=== PATIENT | female | born 1940 | race Caucasian/White ===

== ENCOUNTER → 2017-10-27 09:31 | Outpatient (CLI) | payer MEDICARE, SELFPAY | PROVIDERS: PCP Family Medicine; Visit Provider Orthopaedic Surgery | DX: M17.11 Unilateral primary osteoarthritis, right knee (principal); M70.61 Trochanteric bursitis, right hip | CPT/HCPCS: 20610; 99213; J1040; J7325 ==

== ENCOUNTER 2017-11-06 12:28 | Emergency (ER) | payer MEDICARE, SELFPAY ==
[2017-11-06 12:34] VITALS: BP 112/67; PULSE 78; RESP 17; TEMP 36.4; O2SAT 94
--- NOTE | 2017-11-06 13:06 | DI.RAD_ITS ---
SYMPTOMS/DIAGNOSIS: KNEE PAIN RIGHT KNEE: There is no evidence of fracture or bony erosions. No abnormal gas collections are seen. There may be a joint effusion. IMPRESSION: Mild degenerative changes. Question of a joint effusion.
[2017-11-06 13:34] LABS: Abs Immature Grans 0.08 k/cumm (0.0-0.09); Absolute Basophil Count 0.02 k/cumm (0.0-0.2); Absolute Eosinophil Count 0.19 k/cumm (0.0-0.7); Absolute Lymphocyte Count 2.08 k/cumm (1.2-3.4); Absolute Neutrophil Count 6.62 k/cumm (1.2-6.7); Basophils % 0.2; Eosinophils % 1.8; HCT 38.4 % (36.0-46.0); HGB 12.8 g/dL (12.0-15.5); Immature Grans % 0.8; Mean Corp. HGB Concentration 33.3 g/dL (32.0-36.0); Mean Corpuscular Hemoglobin 30.9 pg (27.0-33.0); Mean Corpuscular Volume 92.8 fL (80-95); Mean Platelet Volume 10.1 fL (8.0-11.0); Monocytes % 13.5; Neutrophils % 63.7; Platelet Count 211 x1000/uL (130-400); RBC 4.14 m/cumm (4.00-5.20); RBC Distribution Width 13.2 % (11.7-14.6); White Blood Cell Count 10.39 k/cumm (4.4-10.8)
[2017-11-06 13:44] LABS: ALT 29 U/L (12-78); AST 19 U/L (15-37); Albumin 3.5 g/dL (3.4-5.0); Alkaline Phosphatase 61 U/L (46-116); Anion Gap 7.4 mmol/L (3-11); BUN 20 mg/dL (7-18); Bilirubin, Total 1.3 mg/dL (0.2-1.0); C-Reactive Protein 4.39 mg/dL (0.0-0.3); CO2 26.6 mmol/L (21.0-32.0); CREATININE 0.95 mg/dL (0.55-1.02); Calcium 8.2 mg/dL (8.5-10.1); Chloride 103 mmol/L (98-107); Estimated GFR 57.19 (mL/min/1.73m2); Glucose 129 mg/dL (70-100); Potassium 3.9 mmol/L (3.5-5.1); Sodium 137 mmol/L (136-145); Total Protein 6.8 g/dL (6.4-8.2)
--- NOTE | 2017-11-06 13:55 | DI.VRAD_ITS ---
EXAM: XR Right Knee, 3 Views EXAM DATE/TIME: 11/06/2017 1:08 PM CLINICAL HISTORY: 77 years old, female; Signs and symptoms; Other: Knee pain; Additional info: Knee joint injection 1 week ago TECHNIQUE: XR Right knee 3 views. COMPARISON: CR - LEFT KNEE 3 VIEW COMPLETE 06/23/2017 1:27 PM FINDINGS: Bones/joints: Tricompartmental joint space narrowing consistent with degenerative changes Moderate suprapatellar joint effusion. Soft tissues: Normal. IMPRESSION: Moderate suprapatellar joint effusion. Dictated and Authenticated by: Clau Valladares MD. Ordering:CHIARA RAMIREZ MD
--- NOTE | 2017-11-06 14:01 | W.ED.GENAD ---
Discharge Plan Disposition Patient Disposition: HOME Condition: Good Discharge Details Chief Complaint: Orthopedic Clinical Impression: Osteoarthrosis, Right knee pain Reason For Visit: knee pain Primary Care Provider: Kingsley Werner ED Provider: Tesfaye Vernon Home Meds and New Rx's Prescriptions: Continue calcium carbonate-vitamin D3 [Caltrate with Vitamin D3] 1 EACH tablet 1 ea PO BID RF: 0 esomeprazole magnesium [Nexium] 40 MG capsule,delayed release(DR/EC) 40 mg PO BID Qty: 180 RF: 3 albuterol sulfate [ProAir HFA] 8.5 GM HFA aerosol inhaler 2 puff Inhalation QID PRNQty: 3 RF: 4 lisinopril-hydrochlorothiazide [Zestoretic] 1 EACH tablet 1 tab-cap PO DAILY Qty: 90 RF: 4 simvastatin [Zocor] 40 MG tablet 40 mg PO DAILY Qty: 90 RF: 4 montelukast [Singulair] 10 MG tablet 10 mg PO DAILY Qty: 90 RF: 4 cholecalciferol (vitamin D3) 2,000 UNIT tablet 2,000 unit PO 2 tablets daily RF: 0 fluticasone-salmeterol [Advair Diskus] 1 EACH blister with device 1 puff Inhalation BID Qty: 1 RF: 3 fluoxetine [Prozac] 20 MG capsule 20 mg PO DAILY Qty: 90 RF: 0 fluticasone [Flonase] 16 GM spray,suspension 2 spry NS DAILY RF: 0 acetaminophen [Mapap Extra Strength] 500 MG tablet 1,000 mg PO PRN PRNRF: 0 Discharge Instructions Instructions: Knee Pain (ED) Additional Instructions: Feel free to return to the emergency department for any new or worsening symptoms. These may include fever chills, significant redness, for further concerns he may have. Otherwise it is encouraged that you follow-up with your orthopedist first thing this week if not improving. Referrals: Robb Wellington MD [ [facility] ST[facility]FF [facility]YSICIAN] - (Call the orthopedics office on Tuesday morning if not improving to discuss her internal follow-up appointment for reassessment.) Discharge Data Discharge Date/Time-TO BE ENTERED AT DEPARTURE: 11/06/17 15:06 Medical Decision Making MDM Narrative Medical decision making narrative: Patient presenting to the emergency department for chief complaint of right knee pain. Patient states that a little more than a week ago she had a joint injection done by Dr. Wellington. Then 3 days ago patient began having some right knee pain. She states that she has taken some Tylenol for it but it is not getting better and she is having some warmth to the joint. Patient denies any fever or chills, streaking redness, other joint involvement. Physical examination shows mild suprapatellar effusion and discomfort throughout palpation of the knee joint but patient does have appropriate range of motion with flexion up to 90? of the joint and is weightbearing. There is mild warmth noted to superficial palpation in the joint but skin otherwise appears normal. given that patient did have recent injection I do feel that labs and radiological imaging of the joint is warranted for rule out of infection or any other significant findings. Patient does have posterior knee pain and proximal calf pain so while DVT is considered I feel that this is a low likelihood so plan to do d-dimer. After review of labs which are nondiagnostic in view show an elevation of CRP but not an ESR and no significant leukocytosis along with x-ray showing moderate suprapatellar joint effusion otherwise no other acute findings noted patient reassess. Also notation d-dimer was elevated but with age adjustment shows within normal parameters given patient's age. Given other findings I doubt DVT patient states no change in symptoms. Patient was encouraged to wear supportive knee brace that she already has along with that to continue to take Tylenol as needed for discomfort. Encouraged patient to follow-up with orthopedist next week if not improving. I feel that this is more her osteoarthritis but doubt septic joint, no injury or trauma is noted, no signs of cellulitis. Patient encouraged to return immediately for any new or worsening symptoms Medical Records Medical records reviewed: Yes I reviewed the patient's medical records. Lab Data Lab Results 11/06/17 11/06/17 Range/Units 13:23 13:23 WBC 10.39 (4.4-10.8) k/cumm RBC 4.14 (4.00-5.20) m/cumm Hgb 12.8 (12.0-15.5) g/dL Hct 38.4 (36.0-46.0) % MCV 92.8 (80-95) fL MCH 30.9 (27.0-33.0) pg MCHC 33.3 (32.0-36.0) g/dL RDW 13.2 (11.7-14.6) % Plt Count 211 (130-400) x1000/uL MPV 10.1 (8.0-11.0) fL Immature Gran % 0.8 Neutrophils % 63.7 Lymphocytes % 20.0 Monocytes % 13.5 Eosinophils % 1.8 Basophils % 0.2 Absolute Neutrophils 6.62 (1.2-6.7) k/cumm Absolute Lymphocytes 2.08 (1.2-3.4) k/cumm Absolute Monocytes 1.40 H (0.11-0.7) k/cumm Absolute Eosinophils 0.19 (0.0-0.7) k/cumm Absolute Basophils 0.02 (0.0-0.2) k/cumm Sodium 137 (136-145) mmol/L Potassium 3.9 (3.5-5.1) mmol/L Chloride 103 (98-107) mmol/L Carbon Dioxide 26.6 (21.0-32.0) mmol/L Anion Gap 7.4 (3-11) mmol/L BUN 20 H (7-18) mg/dL Creatinine 0.95 (0.55-1.02) mg/dL Estimated GFR/1.73 m2 57.19 (mL/min/1.73m2) Glucose 129 H (70-100) mg/dL Calcium 8.2 L (8.5-10.1) mg/dL Total Bilirubin 1.3 H (0.2-1.0) mg/dL AST 19 (15-37) U/L ALT 29 (12-78) U/L Alkaline Phosphatase 61 (46-116) U/L C-Reactive Protein 4.39 H (0.0-0.3) mg/dL Total Protein 6.8 (6.4-8.2) g/dL Albumin 3.5 (3.4-5.0) g/dL HPI - General Adult General Mode of arrival: ambulatory. Date/Time Provider Initiated Documentation: 11/06/17 12:34. Limitations to Documentation: no limitations. Information obtained by: patient. History of Present Illness 77 year old F presents to the emergency department with the chief complaint of Right knee pain, with intensity rated at 7. Quality is described as aching, and is localized to the right and upper extremity. Patient reports no radiation. Patient started experiencing this day(s) (3) and it has been constant. No exacerbating factors reported . Patient notes no other symptoms.. Patient did receive the following treatments prior to arrival, other (Tylenol) Related Data Home Medications Medication Instructions Recorded Confirmed calcium carbonate-vitamin D3 1 ea PO BID tab 08/23/12 11/06/17 [Caltrate with Vitamin D3] fluticasone [Flonase] 2 spry NS DAILY 06/07/13 11/06/17 cholecalciferol (vitamin D3) 2,000 unit PO 2 tablets daily 07/18/17 11/06/17 acetaminophen [Mapap Extra 1,000 mg PO PRN PRN 08/24/17 11/06/17 Strength] Allergies Allergy/AdvReac Type Severity Reaction Status Date / Time adhesive Allergy Severe SKIN RASH Unverified 11/06/17 12:49 Sulfa (Sulfonamide Allergy Intermediate ITCHING Unverified 11/06/17 12:49 Antibiotics) losartan Allergy Unknown SWELLING, Unverified 11/06/17 12:49 ITCHING NSAIDS (Non-Steroidal AdvReac Severe gastritis Unverified 11/06/17 12:49 Anti-Inflamma hydrocodone AdvReac Unverified 11/06/17 12:50 General Stated Complaint: Orthopedic CLAUDIA: 4 Review of Systems Review of Systems All systems reviewed & are unremarkable except as noted in HPI and below Constitutional Denies body ache(s), Denies chills and Denies fever(s) Cardiovascular Denies chest pain and Denies dyspnea Respiratory Denies dyspnea Gastrointestinal Denies abdominal pain, Denies nausea and Denies vomiting Musculoskeletal Reports as per HPI, Reports arthralgias (right knee pain), Reports joint swelling (right knee) and Reports stiffness (right knee) Integumentary/Breasts Denies rash Neurologic Denies confusion and Denies sensory deficit Psychiatric Denies confusion PFSH Family History Mother Diabetes Essential hypertension Depression Heart disease Hyperlipidemia Father No problems noted. Brother Diabetes Essential hypertension Hyperlipidemia Neoplasm Grandfather Diabetes Essential hypertension Grandfather Essential hypertension Heart disease Hyperlipidemia Grandmother Essential hypertension Neoplasm Cerebrovascular accident Grandmother Diabetes Blood disease Neoplasm FAMILY HISTORY Myocardial infarction Son Substance abuse Depression Hyperlipidemia Daughter Diabetes Depression Hyperlipidemia Asthma Social History Smoking/Tobacco Use Status: Never Surgical History Arthroscopy, Shoulder Biopsy of breast (~2005) Cholecystectomy Extraction of cataract FX ARM (02/15/14) Hysterectomy, Laproscopic Exam Const General: cooperative, no acute distress and not ill appearing Orientation: alert, awake and oriented x3 HENMT Mouth: moist mucous membranes Resp Effort & Inspection: normal respiratory effort, able to speak in complete sentences and no respiratory distress Cardio Rate: regular rate Rhythm: regular rhythm Skin General skin exam: no rashes or lesions noted Neuro General: alert, awake, oriented x3, moves all extremities and no focal motor deficits Sensory Exam: no sensory deficits noted Extrem Right lower extremity: knee Details: tenderness Location: of the pre-patellar area and of the distal upper leg, swelling Location: of the pre-patellar area, normal ROM and knee ligament exam normal; no crepitus, no deformity and no unusual warmth Course Vital Signs Temperature 36.4 C L 11/06/17 12:34 Pulse 78 11/06/17 12:34 Respiratory Rate 17 11/06/17 12:34 Blood Pressure 112/67 11/06/17 12:34 Pulse Oximetry 94 L 11/06/17 12:34 Temperature 36.4 C L 11/06/17 12:34 Pulse 78 11/06/17 12:34 Respiratory Rate 17 11/06/17 12:34 Blood Pressure 112/67 11/06/17 12:34 Pulse Oximetry 94 L 11/06/17 12:34 Lab/Test Results Lab/Test Results: Laboratory Tests 11/06/17 11/06/17 13:23 13:23 WBC 10.39 RBC 4.14 Hgb 12.8 Hct 38.4 MCV 92.8 MCH 30.9 MCHC 33.3 RDW 13.2 Plt Count 211 MPV 10.1 Immature Gran % 0.8 Neutrophils % 63.7 Lymphocytes % 20.0 Monocytes % 13.5 Eosinophils % 1.8 Basophils % 0.2 Absolute Neutrophils 6.62 Absolute Lymphocytes 2.08 Absolute Monocytes 1.40 H Absolute Eosinophils 0.19 Absolute Basophils 0.02 Sodium 137 Potassium 3.9 Chloride 103 Carbon Dioxide 26.6 Anion Gap 7.4 BUN 20 H Creatinine 0.95 Estimated GFR/1.73 m2 57.19 Glucose 129 H Calcium 8.2 L Total Bilirubin 1.3 H AST 19 ALT 29 Alkaline Phosphatase 61 C-Reactive Protein 4.39 H Total Protein 6.8 Albumin 3.5
[2017-11-06 14:06] LABS: D-Dimer 658 ng/mlFEU (<500)
[2017-11-06 14:25] LABS: ESR 21 MM/HR (0-30)
== END 2017-11-06 15:06 | disposition home or self-care (01) ==
PROVIDERS: Emergency Provider Nurse Practitioner Family; PCP Family Medicine
DX: M25.561 Pain in right knee (principal); M25.461 Effusion, right knee
CPT/HCPCS: 36415; 73562; 80053; 85652; 99284; 85025; 85379; 86140

== ENCOUNTER → 2017-11-17 14:34 | Outpatient (BNVA) | payer MEDICARE, SELFPAY | PROVIDERS: PCP Family Medicine; Referring Provider Family Medicine; Visit Provider Orthopaedic Surgery | DX: M25.561 Pain in right knee (principal); M25.461 Effusion, right knee | CPT/HCPCS: 20610; 99213; J1040 ==

== ENCOUNTER 2017-11-30 00:38 | Outpatient (CLI) | payer MEDICARE, SELFPAY ==
--- NOTE | 2017-11-30 08:50 | DI.MRI_ITS ---
SYMPTOM/DIAGNOSIS: RT KNEE PAIN, DJD, ? MENISCUS MRI RIGHT KNEE: The study was conducted according to the usual protocol. A large knee effusion is demonstrated. There is small thin patellar plica seen in the medial and lateral suprapatellar pouch. There may be strands of possible blood clot present in the suprapatellar pouch. The positional alignment of the patella and trochlear groove and distal femur is normal with thinning of the hyaline cartilage covering the posterior articular surface of the patella. There are subchondral degenerative and reactive marrow changes and marginal osteophytosis of the patella is identified. The femoral condylar hyaline cartilage covering appears to be thinned overlying the medial and lateral femoral condyles especially in the medial femoral condyle with minimal subchondral degenerative cystic changes noted in the posterior medial femoral condyle. Margin osteophytic disease is seen in both medial and lateral femoral condyles. The marrow signal of the periarticular bones appears unremarkable except for minimal degenerative subchondral changes in the medial femoral condyle and lateral tibial plateau. The extensor mechanism of the quadriceps tendon is normal. The patella tendon is normal. The medial meniscus and posterior horn show a small horizontal meniscal tear extending to the inferior portion of the joint surface. The root ligaments and menisci appear normal. There is a questionable small bucket-handle tear of the anterior horn of the lateral meniscus. This is a questionable finding. The medial collateral ligament is normal. The lateral collateral ligament appears normal. Popliteus tendon is intact. The anterior cruciate ligament is normal. The posterior cruciate ligament is normal. No muscular abnormality is seen. Hoffa's fat pad is normal. The popliteal fossa appears normal except for a small Rahman's cyst in the posteromedial soft tissues. SUMMARY: Moderate osteoarthritic changes involving the knee affecting all joint compartments especially the patellofemoral and medial tibial femoral joint. A moderately large joint effusion is identified with patellar plica seen in the medial lateral suprapatellar pouch areas as well as possible strand-like blood clots in the joint cavity. A small Rahman's cyst is seen in the posteromedial popliteal fossa and some early dissection of the cyst fluid in to the soft tissues above and below the knee joint line. The medial meniscus and posterior horn show small horizontal meniscal tear extending to the inferior joint. There is a small bucket-handle tear of the anterior horn of the lateral meniscus. This is a questionable finding.
--- NOTE | 2017-11-30 17:52 | DI.VRAD_ITS ---
EXAM: MR Right Lower Extremity Without Intravenous Contrast, Knee EXAM DATE/TIME: 11/30/2017 8:43 AM CLINICAL HISTORY: 77 years old, female; Signs and symptoms; Other: Right knee pain, djd, ? meniscus; Prior surgery; Surgery date: 6+ months; Surgery type: Knee arthroscopy a few years ago TECHNIQUE: Multiplanar magnetic resonance images of the right knee without intravenous contrast. COMPARISON: CR XR knee RT 3V AP,lat,giacomo 11/06/2017 1:23 PM FINDINGS: BONES/JOINTS/CARTILAGE: PATELLOFEMORAL COMPARTMENT: A moderately large knee joint effusion is present. Small thin patellar plicae are seen in the medial and lateral suprapatellar pouch areas. There may be strands of possible blood clot present in the suprapatellar pouch on image 25 of series 3 and image 16 of series 6. The position and alignment of the patella on the trochlea groove of the distal femur is normal, with thinning of the hyaline cartilage covering the posterior articular surface of the patella, subchondral degenerative reactive marrow change and marginal osteophytosis of the patella present. FEMOROTIBIAL COMPARTMENTS: The femoral condylar hyaline cartilage covering appears thinned overlying the medial and lateral femoral condyles, especially the medial femoral condyle, with minimal subchondral degenerative cystic change noted in the posteromedial femoral condyle. Marginal osteophytic disease is seen in both medial and lateral femoral condyles. The marrow signal of the periarticular bones appears unremarkable, except for minimal degenerative subchondral changes in the medial femoral condyle and the lateral tibial plateau. EXTENSOR MECHANISM: The quadriceps tendon appears normal. The patellar tendon appears normal. MEDIAL MENISCUS: The medial meniscus posterior horn shows a small horizontal meniscal tear, extending to the inferior joint surface seen on image 17 of series 6. The root ligaments of the menisci appear normal. LATERAL MENISCUS: There is a questionable small bucket-handle tear of the anterior horn of the lateral meniscus seen on image 11 of series 4 and image 8 of series 6. This is however a questionable finding. MEDIAL CAPSULE/SUPPORTING STRUCTURES: The medial collateral ligament is normal. LATERAL CAPSULE/SUPPORTING STRUCTURES: The lateral collateral ligament appears normal. The popliteus tendon appears normal. ANTERIOR CRUCIATE LIGAMENT: The anterior cruciate ligament appears normal. POSTERIOR CRUCIATE LIGAMENT: The posterior cruciate ligament appears normal. MUSCULATURE: Unremarkable. SOFT TISSUES: Hoffa's fat pad is normal. The popliteal fossa appears normal, except for a small Rahman's cyst in the posteromedial soft tissues. IMPRESSION: 1. There is moderate osteoarthritis of the knee affecting all three knee joint compartments, especially the patellofemoral and medial tibiofemoral joint compartments. 2. A moderately large knee joint effusion is present with patellar plicae seen in the medial and lateral suprapatellar pouch areas as well as possible strand-like blood clots in the joint cavity. A small Rahman's cyst is seen in the posteromedial popliteal fossa with some early dissection of the cyst fluid into the soft tissues above and below the knee jointline. 3. The medial meniscus posterior horn shows a small horizontal meniscal tear, extending to the inferior joint surface seen on image 17 of series 6. 4. There is a small bucket-handle tear of the anterior horn of the lateral meniscus seen on image 11 of series 4 and image 8 of series 6. This is however a questionable finding. Dictated and Authenticated by: Bridger Hector MD. Ordering:DAYAN DIETZ MD
== END 2017-11-30 00:58 ==
PROVIDERS: PCP Family Medicine; Visit Provider Orthopaedic Surgery
DX: M25.461 Effusion, right knee (principal); M17.11 Unilateral primary osteoarthritis, right knee; M71.21 Synovial cyst of popliteal space [Baker], right knee; M23.221 Derangement of posterior horn of medial meniscus due to old tear or injury, right knee
CPT/HCPCS: 73721

== ENCOUNTER → 2017-12-06 11:00 | Outpatient (BNVA) | payer MEDICARE, SELFPAY | PROVIDERS: PCP Family Medicine; Referring Provider Family Medicine; Visit Provider Orthopaedic Surgery | DX: Z01.818 Encounter for other preprocedural examination (principal); M25.561 Pain in right knee; I10 Essential (primary) hypertension | CPT/HCPCS: 99211; 99213 ==

== ENCOUNTER 2017-12-09 07:21 | Day surgery (SDC) | payer MEDICARE, SELFPAY ==
[2017-12-09] VITALS (9 sets, daily range): BP systolic 77–139; BP diastolic 34–63; PULSE 76–89; RESP 12–20; TEMP 36.4–37.2; O2SAT 90–97
[2017-12-09] MEDS: Lactated Ringers 1,000 ML 80 ML IV (08:14)
[2017-12-09] MEDS: Bupivacaine 0.25% Pres-Free 10 ML VIAL 20 ML (09:14)
--- NOTE | 2017-12-09 10:20 | W.PM.DSUDISC ---
Discharge Plan Disposition Patient Disposition: HOME Condition: Improving Discharge Details Reason For Visit: Right knee pain,internal derangement found Attending Provider: Robb Wellington Primary Care Provider: Kingsley Werner Home Meds and New Rx's Prescriptions: No Action calcium carbonate-vitamin D3 [Caltrate with Vitamin D3] 1 EACH tablet 1 ea PO BID RF: 0 esomeprazole magnesium [Nexium] 40 MG capsule,delayed release(DR/EC) 20 mg PO BID Qty: 180 RF: 3 albuterol sulfate [ProAir HFA] 8.5 GM HFA aerosol inhaler 2 puff Inhalation QID PRNQty: 3 RF: 4 lisinopril-hydrochlorothiazide [Zestoretic] 1 EACH tablet 1 tab-cap PO DAILY Qty: 90 RF: 4 simvastatin [Zocor] 40 MG tablet 40 mg PO DAILY Qty: 90 RF: 4 cholecalciferol (vitamin D3) 2,000 UNIT tablet 2,000 unit PO 2 tablets daily RF: 0 fluticasone [Flonase] 16 GM spray,suspension 2 spry NS DAILY RF: 0 acetaminophen [Mapap Extra Strength] 500 MG tablet 1,000 mg PO PRN PRNRF: 0 montelukast [Singulair] 10 MG tablet 10 mg PO DAILY PRNRF: 0 fluoxetine [Prozac] 20 MG capsule 20 mg PO DAILY RF: 0 fluticasone-salmeterol [Advair Diskus] 250-50 mcg/dose Blister With Device 1 puff Inhalation PRN PRNRF: 0 acetaminophen 325 mg Tablet 325 mg PO PRN PRNRF: 0 Discharge Instructions Additional Instructions: Keep your right knee elevated above heart level as much as possible for the next 48 hours. You may walk on your leg and place your full weight upon it to eat or to go to the bathroom. You may loosen the knee splint and/or the sergio bandages if they feel to tight. Continue to use the ice as needed for pain and swelling. On 12/11/17, you may remove all of your bandages and get your wounds wet in the shower with soap and water. Gently pat the stitches dry and cover them with bandaids. Apply a single 6 inch sergio bandage for support and resume activity as tolerated. Make sure you remove the 6 inch sergio bandage each night so that it doesn't act as a tourniquet causing swelling ion the lower leg. Take tylenol for milder pain. Take norco (5/325 mg) 1-2 every 4 hours for more serious pain. [facility] regulations limit the amount of norco to 18 tablets. Follow up with Dr. Wellington in 10-12 days. Discharge Orders Discharge Orders: Discharge Order (Routine); Ordered 12/09/17 Ordered By: Robb Wellington
[2017-12-09 10:35] LABS: Clarity BLOODY; Source R KNEE
[2017-12-09] MEDS: fentaNYL 100 MCG/2 ML VIAL IVP (10:44)
[2017-12-09 10:51] LABS: Mononuclear Cells 15 % (0-0); Polynuclear Cells 85 % (0-0)
[2017-12-09 10:54] LABS: Nucleated Cells 13860 /MM3 (0-0)
--- NOTE | 2017-12-09 11:18 | ROE_ITS ---
REPORT OF OPERATIVE PROCEDURE DATE OF PROCEDURE December 09, 2017 PREOPERATIVE DIAGNOSES Sudden onset pain right knee, question etiology. POSTOPERATIVE DIAGNOSES Small tear posteromedial meniscus. Large tear lateral meniscus. Moderate DJD medial femoral condyle and lateral tibial plateau. PROCEDURES Arthroscopy right knee with partial medial and lateral meniscectomies. Aspiration of effusion and fluid sent for culture and sensitivity, and cell count differential. SURGEON Robb Wellington M.D. ASSESSMENT Nurse. ANESTHETIC General Via endotracheal tube by Vinny Berg CRNA PREP ChloraPrep. INDICATIONS This patient has been followed by me for several years for chronic right knee pain. She has been forrest ated with Synvisc injections with good results. She had a Synvisc injection approximately four weeks ago. Instead of taking it easy as prescribed for 24 hours, she went to her daughters home in [facility], was quite active for 72 straight hours including going up and down stairs, attending a soccer ga la, shopping at malls. She returned with a painful right knee. She did not volunteer her history of h ow much activity she had one or the fact that she had ignored the advice to rest the knee for the fir st 24 hours after the Synvisc injection. I thought she might be having an allergic reaction. She was placed on a Medrol Dosepak with no improvement. She did not recall any particular trauma to the knee other than being active. When I saw her in the office she showed evidence of swollen knee. No evidenc e of acute infection. I tried an intraarticular injection still thinking she could potentially being having an allergic reaction, this was of benefit for only 48 hours. An MRI was done, which showed jose juan e increased activity over the medial and lateral menisci, but no definitive tears. I reviewed the MRI findings with Dr. Celaya and with Dr. Stafford separately. I concurred with their opinions. Because of p ersistent pain, and no definitive diagnosis, I recommended arthroscopy. This would afford me an oppor tunity to perform a culture and sensitivity of the joint fluid and evaluate the knee. DESCRIPTION OF PROCEDURE I greeted her in the Day Surgery area and marked her right knee. She was not given any prophylactic a ntibiotics until the fluid was aspirated and culture was obtained. Time-out was instituted and she wa s brought to the Operating Suite, where arthroscopic procedure was initiated. First, I aspirated abou t 10 cc of serosanguineous joint fluid, it was sent for culture and sensitivity. It was a slightly bl oody tap, but there was no gross evidence of purulence. She was given 2 grams of Ancef. I then, inserted the arthroscope after sterile prepping and draping through an anterolateral portal. Inflow was provided through the scope, egress and pressure-monitoring portals were placed superolater ally. Instrumentation was accomplished anteromedially. The medial compartment showed areas of articu lar cartilage frayed over the medial femoral condyle and also the medial tibial plateau. The medial m eniscus was intact, except there is a small flap tear over the posterior medial aspect of the meniscu s. The ACL was intact with some fraying, but its integrity was normal. The lateral meniscus had a lar ge bucket handle tear, which was removed with basket forceps and the ArthroCare wand. There was some associated degenerative changes of the lateral tibial plateau, this was documented with Mavigraph pic tures. 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 The knee was then irrigated with several thousand cc of saline. Portals were closed with sutures of #4-0 Ethilon in a horizontal mattress fashion. The knee as infiltrated with 20 cc of 0.5% Marcaine. Steri le bandages were applied consisting of Xeroform gauze, 4x4s, a 4-inch confirming gauze bandage, two 6 -inch Thierry wraps, and a commercial knee immobilizer. The patient was taken to the Recovery Room in sat isfactory condition, tolerating the procedure well.
--- NOTE | 2017-12-12 12:50 | PDOC.DSDIS_ITS ---
Discharge Plan Disposition Patient Disposition: HOME Condition: Improving Discharge Details Reason For Visit: Right knee pain,internal derangement found Attending Provider: Robb Wellington Primary Care Provider: Kingsley Werner Home Meds and New Rx's Prescriptions: No Action calcium carbonate-vitamin D3 [Caltrate with Vitamin D3] 1 EACH tablet 1 ea PO BID RF: 0 esomeprazole magnesium [Nexium] 40 MG capsule,delayed release(DR/EC) 20 mg PO BID Qty: 180 RF: 3 albuterol sulfate [ProAir HFA] 8.5 GM HFA aerosol inhaler 2 puff Inhalation QID PRNQty: 3 RF: 4 lisinopril-hydrochlorothiazide [Zestoretic] 1 EACH tablet 1 tab-cap PO DAILY Qty: 90 RF: 4 simvastatin [Zocor] 40 MG tablet 40 mg PO DAILY Qty: 90 RF: 4 cholecalciferol (vitamin D3) 2,000 UNIT tablet 2,000 unit PO 2 tablets daily RF: 0 fluticasone [Flonase] 16 GM spray,suspension 2 spry NS DAILY RF: 0 acetaminophen [Mapap Extra Strength] 500 MG tablet 1,000 mg PO PRN PRNRF: 0 montelukast [Singulair] 10 MG tablet 10 mg PO DAILY PRNRF: 0 fluoxetine [Prozac] 20 MG capsule 20 mg PO DAILY RF: 0 fluticasone-salmeterol [Advair Diskus] 250-50 mcg/dose Blister With Device 1 puff Inhalation PRN PRNRF: 0 acetaminophen 325 mg Tablet 325 mg PO PRN PRNRF: 0 Discharge Instructions Additional Instructions: Keep your right knee elevated above heart level as much as possible for the next 48 hours. You may walk on your leg and place your full weight upon it to eat or to go to the bathroom. You may loosen the knee splint and/or the sergio bandages if they feel to tight. Continue to use the ice as needed for pain and swelling. On 12/11/17, you may remove all of your bandages and get your wounds wet in the shower with soap and water. Gently pat the stitches dry and cover them with bandaids. Apply a single 6 inch sergio bandage for support and resume activity as tolerated. Make sure you remove the 6 inch sergio bandage each night so that it doesn't act as a tourniquet causing swelling ion the lower leg. Take tylenol for milder pain. Take norco (5/325 mg) 1-2 every 4 hours for more serious pain. [facility] [place] the amount of norco to 18 tablets. Follow up with Dr. Wellington in 10-12 days. Stand Alone Forms: [facility] Post op Instructions, [facility] ([facility]) Discharge Orders Discharge Orders: Discharge Order (Routine); Ordered 12/09/17 Ordered By: Robb Wellington Discharge Data Discharge Date/Time-TO BE ENTERED AT DEPARTURE: 12/09/17 13:00 Discharge Comment: PT. DISCHARGED WITH [facility] VIA PRIVATE VEHICLE.
== END 2017-12-09 13:00 | disposition home or self-care (01) ==
PROVIDERS: PCP Family Medicine; Visit Provider Orthopaedic Surgery
PROC: (CPT 29870; principal; 2017-12-09 08:30)
DX: M23.221 Derangement of posterior horn of medial meniscus due to old tear or injury, right knee (principal); M23.200 Derangement of unspecified lateral meniscus due to old tear or injury, right knee; M17.11 Unilateral primary osteoarthritis, right knee
CPT/HCPCS: 20610; 29880; 87070; 87205; 89051; J0131; J0690; J1100; J1885; J2405; J3010; L1830

== ENCOUNTER 2017-12-14 06:15 | Emergency (ER) | payer MEDICARE, SELFPAY ==
[2017-12-14] VITALS (58 sets, daily range): BP systolic 139–197; BP diastolic 59–83; PULSE 85–95; RESP 18–37; TEMP 36.8; O2SAT 90–98
[2017-12-14] MEDS: Lactated Ringers 1,000 ML 150 ML IV (06:25)
--- NOTE | 2017-12-14 06:32 | W.ED.GENAD ---
Discharge Plan Discharge Details Chief Complaint: Nausea/Vomit/Diar Reason For Visit: ANNA Primary Care Provider: Kingsley Werner ED Provider: Deborah Cano Home Meds and New Rx's Prescriptions: No Action calcium carbonate-vitamin D3 [Caltrate with Vitamin D3] 1 EACH tablet 1 ea PO BID RF: 0 esomeprazole magnesium [Nexium] 40 MG capsule,delayed release(DR/EC) 20 mg PO BID Qty: 180 RF: 3 albuterol sulfate [ProAir HFA] 8.5 GM HFA aerosol inhaler 2 puff Inhalation QID PRNQty: 3 RF: 4 lisinopril-hydrochlorothiazide [Zestoretic] 1 EACH tablet 1 tab-cap PO DAILY Qty: 90 RF: 4 simvastatin [Zocor] 40 MG tablet 40 mg PO DAILY Qty: 90 RF: 4 cholecalciferol (vitamin D3) 2,000 UNIT tablet 2,000 unit PO 2 tablets daily RF: 0 fluticasone [Flonase] 16 GM spray,suspension 2 spry NS DAILY RF: 0 acetaminophen [Mapap Extra Strength] 500 MG tablet 1,000 mg PO PRN PRNRF: 0 montelukast [Singulair] 10 MG tablet 10 mg PO DAILY PRNRF: 0 fluoxetine [Prozac] 20 MG capsule 20 mg PO DAILY RF: 0 fluticasone-salmeterol [Advair Diskus] 250-50 mcg/dose Blister With Device 1 puff Inhalation PRN PRNRF: 0 acetaminophen 325 mg Tablet 325 mg PO PRN PRNRF: 0 Discharge Data Discharge Date/Time-TO BE ENTERED AT DEPARTURE: 12/14/17 12:46 Medical Decision Making <Jason Heath MD - Last Filed: 12/14/17 08:04> Patient presenting with left sided abdominal pain, bloody diarrhea, active vomiting. IV established and fluids started. Zofran initially given with some relief. Phenergan given with better results. Laboratory studies obtained. CT scan of the abdomen pelvis ordered. Patient is afebrile here and hemodynamically stable. There has been no recent antibiotic use or travel outside of [place]. Laboratory studies significant for white count of 13.5 with normal hemoglobin/hematocrit. Platelets are normal. She has a little bit of renal insufficiency on chemistries. Glucose is a little high at 226. Liver function and lipase are normal. Patient is currently in CAT scan now. Case will be turned over to Dr. Cano who will follow up on CAT scan and disposition patient appropriately. Medical Records Medical records reviewed: Yes I reviewed the patient's medical records. Lab Data Lab results reviewed: Yes I reviewed the patient's lab results. <Deborah Cano MD - Last Filed: 12/27/17 23:32> I received sign-out from Dr. Heath at shift change with CT a/p pending. CT shows colitis. Given hx, suspect infectious at this time. Lactate elevated at 2.4. Pt with continued nausea on reassessment, no worsening pain. Exam/hx not c/w mesenteric ischemia at this time. I do not feel that she is appropriate for d/c to home at this time, and would benefit from IVF hydration, IV antiemetics, and continued monitoring. No beds available at [facility]. Plan to transfer to [facility]. Pt is amenable to transfer. Will start cipro/flagyl. Clinical Impression: colitis Disposition: transfer to [facility] Medical Records Medical records reviewed: Yes I reviewed the patient's medical records. Imaging Data Radiologic Study: Attestation: I personally reviewed and interpreted this imaging study as follows: Radiologist's impression: ABDOMEN AND PELVIC CT: There are no priors for comparison. Comparison MRI of the lumbar spine is 09/02/17. Dependent atelectatic changes are seen in the lung bases. The liver shows diffuse decreased attenuation consistent with fatty infiltration. There is a 4 cm. simple cyst in the left lobe of the liver. No suspicious hepatic masses are seen. The patient is status post cholecystectomy. No biliary ductal dilatation is present. The portal and superior mesenteric veins are patent. The pancreas, spleen and adrenal glands are unremarkable. The kidneys show normal and symmetric enhancement. There are tiny hypodense lesions seen in the kidneys bilaterally. They are too small for further characterization but likely reflect cysts. The urinary bladder is intact. The reproductive organs are unremarkable as visualized. The abdominal aorta is of normal caliber with mild atherosclerosis. No aneurysmal dilatation is seen. No significant abdominal or pelvic adenopathy, ascites or pneumoperitoneum is present. There is moderate bowel wall thickening extending from the distal transverse colon to the proximal sigmoid colon. Pericolonic inflammatory changes are present. The findings are most consistent with colitis. The remainder of the bowel is unremarkable. There is no evidence of an acute appendicitis or obstruction. Degenerative changes are seen in the spine. There is an old compression deformity of the superior endplate of L 3 which was present on the prior examinations. IMPRESSION: Colitis involving the distal transverse colon, descending colon and the proximal sigmoid colon. HPI <Jason Heath MD - Last Filed: 12/14/17 08:04> General Mode of arrival: EMS. Date/Time Provider Initiated Documentation: 12/14/17 06:31. Limitations to Documentation: no limitations. Information obtained by: patient, RN notes reviewed and old records reviewed. HPI Narrative: Patient presents to the ED by ambulance with complaint of nausea, vomiting, bloody diarrhea since last night. She has some left-sided abdominal pain. She reports that the diarrhea started first and according to her has been bloody since initial event. She has subsequently developed left-sided abdominal pain, nausea, vomiting. She has been unable to keep anything down. She has been vomiting all night. The diarrhea has slowed down but has not completely stopped. She has a prior history of gastroparesis and was seen by her GI specialist this summer. She has not had something like this previously. She has not been on recent antibiotics. There has been no travel outside of the [place]. There has been no consumption of undercooked beef. Related Data Home Medications Medication Instructions Recorded Confirmed calcium carbonate-vitamin D3 1 ea PO BID tab 08/23/12 12/20/17 [Caltrate with Vitamin D3] esomeprazole magnesium [Nexium] 20 mg PO BID #180 tab-cap 08/31/12 12/20/17 fluticasone [Flonase] 2 spry NS DAILY 06/07/13 12/20/17 albuterol sulfate [ProAir HFA] 2 puff INHALATION QID PRN #3 ea 03/21/17 12/20/17 lisinopril-hydrochlorothiazide 1 tab-cap PO DAILY #90 tab-cap 04/28/17 12/20/17 [Zestoretic] simvastatin [Zocor] 40 mg PO DAILY #90 tab-cap 04/28/17 12/20/17 cholecalciferol (vitamin D3) 2,000 unit PO 2 tablets daily 07/18/17 12/20/17 acetaminophen [Mapap Extra 1,000 mg PO PRN PRN 08/24/17 12/20/17 Strength] fluoxetine [Prozac] 20 mg PO DAILY 12/06/17 12/20/17 montelukast [Singulair] 10 mg PO DAILY PRN 12/06/17 12/20/17 acetaminophen 325 mg PO PRN PRN 12/09/17 12/20/17 fluticasone-salmeterol [Advair 1 puff INHALATION PRN PRN 12/09/17 12/20/17 Diskus] Previous Rx's Medication Instructions Recorded lisinopril-hydrochlorothiazide 1 tab-cap PO DAILY #90 tab-cap 04/28/17 [Zestoretic] simvastatin [Zocor] 40 mg PO DAILY #90 tab-cap 04/28/17 Allergies Allergy/AdvReac Type Severity Reaction Status Date / Time adhesive Allergy Severe SKIN RASH Verified 12/14/17 06:28 Sulfa (Sulfonamide Allergy Intermediate ITCHING Verified 12/14/17 06:28 Antibiotics) losartan Allergy Unknown SWELLING, Verified 12/14/17 06:28 ITCHING NSAIDS (Non-Steroidal AdvReac Severe gastritis Verified 12/14/17 06:28 Anti-Inflamma hydrocodone AdvReac Itching Verified 12/14/17 06:28 General Stated Complaint: Abd Prob CLAUDIA: 3 Review of Systems <Jason Heath MD - Last Filed: 12/14/17 08:04> Constitutional Denies chills, Denies fatigue, Denies fever(s), Denies headache(s), Denies malaise and Denies weakness Eyes Denies eye discharge and Denies eye pain ENT Denies otalgia, Denies facial pain, Denies headache(s), Denies nasal congestion, Denies neck pain, Denies sinus pain and Denies sore throat Cardiovascular Denies chest pain, Denies diaphoresis, Denies syncope, Denies edema, Denies palpitations and Denies dyspnea Respiratory Denies cough and Denies dyspnea Gastrointestinal Reports abdominal pain, Reports hematochezia, Denies constipation, Reports diarrhea, Reports nausea, Reports vomiting and Denies hematemesis Genitourinary Denies hematuria and Denies dysuria Musculoskeletal Denies back pain, Denies myalgias, Denies neck pain and Denies numbness Integumentary/Breasts Denies rash Neurologic Denies syncope, Denies headache(s), Denies focal weakness, Denies numbness and Denies weakness Endocrine Denies fatigue and Denies palpitations Exam <Jason Heath MD - Last Filed: 12/14/17 08:04> Const General: cooperative and other (active dry heaving) Orientation: alert and oriented x3 [facility] Head: normocephalic and atraumatic Mouth: other (dry mucous membranes) Eyes Sclera: sclerae normal Neck Neck: normal visual inspection, trachea midline and supple Resp Effort & Inspection: normal respiratory effort Auscultation: clear to auscultation bilaterally Cardio Rate: regular rate Rhythm: regular rhythm Heart Sounds: S1 normal and S2 normal GI Inspection: non-distended Palpation: soft, not firm, guarding (voluntary) in the LLQ and tender in the LLQ Rectal Exam - female: abnormal stool Rectal exam abnormal stool - female: mucoid stool (bloody mucoid diarrhea in pants) Back/Spine/Pelvis Back: no CVA tenderness Skin General skin exam: no rashes or lesions noted Neuro General: alert, oriented x3, no focal motor deficits and CN's II-XI intact bilaterally Extrem General: normal to inspection and full ROM Course <Jason Heath MD - Last Filed: 12/14/17 08:04> Vital Signs Temperature 98.2 F 12/14/17 06:19 Pulse 89 12/14/17 06:19 Respiratory Rate 20 12/14/17 06:19 Blood Pressure 184/76 H 12/14/17 06:19 Pulse Oximetry 96 12/14/17 06:19 Temperature 98.2 F 12/14/17 06:19 Temperature Source Skin 12/14/17 06:19 Pulse 89 12/14/17 06:19 Respiratory Rate 20 12/14/17 06:19 Respiratory Effort Non-Labored 12/14/17 06:28 Blood Pressure 184/76 H 12/14/17 06:19 Pulse Oximetry 96 12/14/17 06:19 Oxygen Delivery Method Room Air 12/14/17 06:19 Oxygen Flow Rate 0 12/14/17 06:19 Pain Level 3 12/14/17 06:19 Sign Out <Jason Heath MD - Last Filed: 12/14/17 08:04> Sign Out Data: Sign Out Comment: Signed out to Dr. Anjelica Cano pending CT scan completion/reading. Last updated by Jason Hetah MD at 12/14/17 08:00
[2017-12-14] MEDS: Ondansetron 4 MG/2 ML VIAL IVP (06:39)
--- NOTE | 2017-12-14 06:39 | DI.CT_ITS ---
SYMPTOM/DIAGNOSIS: VOMITING, BLOODY DIARRHEA, LLQ PAIN ABDOMEN AND PELVIC CT: There are no priors for comparison. Comparison MRI of the lumbar spine is . Dependent atelectatic changes are seen in the lung bases. The liver shows diffuse decreased attenuation consistent with fatty infiltration. There is a 4 cm. simple cyst in the left lobe of the liver. No suspicious hepatic masses are seen. The patient is status post cholecystectomy. No biliary ductal dilatation is present. The portal and superior mesenteric veins are patent. The pancreas, spleen and adrenal glands are unremarkable. The kidneys show normal and symmetric enhancement. There are tiny hypodense lesions seen in the kidneys bilaterally. They are too small for further characterization but likely reflect cysts. The urinary bladder is intact. The reproductive organs are unremarkable as visualized. The abdominal aorta is of normal caliber with mild atherosclerosis. No aneurysmal dilatation is seen. No significant abdominal or pelvic adenopathy, ascites or pneumoperitoneum is present. There is moderate bowel wall thickening extending from the distal transverse colon to the proximal sigmoid colon. Pericolonic inflammatory changes are present. The findings are most consistent with colitis. The remainder of the bowel is unremarkable. There is no evidence of an acute appendicitis or obstruction. Degenerative changes are seen in the spine. There is an old compression deformity of the superior endplate of L 3 which was present on the prior examinations. IMPRESSION: Colitis involving the distal transverse colon, descending colon and the proximal sigmoid colon.
[2017-12-14 06:57] LABS: Abs Immature Grans 0.16 k/cumm (0.0-0.09); Absolute Eosinophil Count 0.01 k/cumm (0.0-0.7); Basophils % 0.1; Eosinophils % 0.1; HCT 39.7 % (36.0-46.0); HGB 13.3 g/dL (12.0-15.5); Immature Grans % 1.2; Lymphocytes % 9.6; Mean Corp. HGB Concentration 33.5 g/dL (32.0-36.0); Mean Corpuscular Hemoglobin 30.4 pg (27.0-33.0); Mean Corpuscular Volume 90.8 fL (80-95); Mean Platelet Volume 9.8 fL (8.0-11.0); Monocytes % 5.7; Neutrophils % 83.3; Platelet Count 382 x1000/uL (130-400); RBC 4.37 m/cumm (4.00-5.20); RBC Distribution Width 13.2 % (11.7-14.6); White Blood Cell Count 13.57 k/cumm (4.4-10.8)
[2017-12-14 07:00] LABS: Absolute Basophil Count 0.01 k/cumm (0.0-0.2); Absolute Monocyte Count 0.77 k/cumm (0.11-0.7)
--- NOTE | 2017-12-14 07:02 | ED.GENADUL_ITS ---
Discharge Plan Discharge Details Chief Complaint: Nausea/Vomit/Diar Reason For Visit: ANNA Primary Care Provider: Kingsley Werner ED Provider: Deborah Cano Home Meds and New Rx's Prescriptions: No Action calcium carbonate-vitamin D3 [Caltrate with Vitamin D3] 1 EACH tablet 1 ea PO BID RF: 0 esomeprazole magnesium [Nexium] 40 MG capsule,delayed release(DR/EC) 20 mg PO BID Qty: 180 RF: 3 albuterol sulfate [ProAir HFA] 8.5 GM HFA aerosol inhaler 2 puff Inhalation QID PRNQty: 3 RF: 4 lisinopril-hydrochlorothiazide [Zestoretic] 1 EACH tablet 1 tab-cap PO DAILY Qty: 90 RF: 4 simvastatin [Zocor] 40 MG tablet 40 mg PO DAILY Qty: 90 RF: 4 cholecalciferol (vitamin D3) 2,000 UNIT tablet 2,000 unit PO 2 tablets daily RF: 0 fluticasone [Flonase] 16 GM spray,suspension 2 spry NS DAILY RF: 0 acetaminophen [Mapap Extra Strength] 500 MG tablet 1,000 mg PO PRN PRNRF: 0 montelukast [Singulair] 10 MG tablet 10 mg PO DAILY PRNRF: 0 fluoxetine [Prozac] 20 MG capsule 20 mg PO DAILY RF: 0 fluticasone-salmeterol [Advair Diskus] 250-50 mcg/dose Blister With Device 1 puff Inhalation PRN PRNRF: 0 acetaminophen 325 mg Tablet 325 mg PO PRN PRNRF: 0 Discharge Data Discharge Date/Time-TO BE ENTERED AT DEPARTURE: 12/14/17 12:46 Medical Decision Making <Jason Heath MD - Last Filed: 12/14/17 08:04> Patient presenting with left sided abdominal pain, bloody diarrhea, active vomiting. IV established and fluids started. Zofran initially given with some relief. Phenergan given with better results. Laboratory studies obtained. CT scan of the abdomen pelvis ordered. Patient is afebrile here and hemodynamically stable. There has been no recent antibiotic use or travel outside of [place]. Laboratory studies significant for white count of 13.5 with normal hemoglobin/ hematocrit. Platelets are normal. She has a little bit of renal insufficiency on chemistries. Glucose is a little high at 226. Liver function and lipase are normal. Patient is currently in CAT scan now. Case will be turned over to Dr. Cano who will follow up on CAT scan and disposition patient appropriately. Medical Records Medical records reviewed: Yes I reviewed the patient's medical records. Lab Data Lab results reviewed: Yes I reviewed the patient's lab results. <Deborah Cano MD - Last Filed: 12/27/17 23:32> I received sign-out from Dr. Heath at shift change with CT a/p pending. CT shows colitis. Given hx, suspect infectious at this time. Lactate elevated at 2.4. Pt with continued nausea on reassessment, no worsening pain. Exam/hx not c/ w mesenteric ischemia at this time. I do not feel that she is appropriate for d/ c to home at this time, and would benefit from IVF hydration, IV antiemetics, and continued monitoring. No beds available at [facility]. Plan to transfer to [facility]. Pt is amenable to transfer. Will start cipro/flagyl. Clinical Impression: colitis Disposition: transfer to [facility] Medical Records Medical records reviewed: Yes I reviewed the patient's medical records. Imaging Data Radiologic Study: Attestation: I personally reviewed and interpreted this imaging study as follows: Radiologist's impression: ABDOMEN AND PELVIC CT: There are no priors for comparison. Comparison MRI of the lumbar spine is . Dependent atelectatic changes are seen in the lung bases. The liver shows diffuse decreased attenuation consistent with fatty infiltration. There is a 4 cm. simple cyst in the left lobe of the liver. No suspicious hepatic masses are seen. The patient is status post cholecystectomy. No biliary ductal dilatation is present. The portal and superior mesenteric veins are patent. The pancreas, spleen and adrenal glands are unremarkable. The kidneys show normal and symmetric enhancement. There are tiny hypodense lesions seen in the kidneys bilaterally. They are too small for further characterization but likely reflect cysts. The urinary bladder is intact. The reproductive organs are unremarkable as visualized. The abdominal aorta is of normal caliber with mild atherosclerosis. No aneurysmal dilatation is seen. No significant abdominal or pelvic adenopathy, ascites or pneumoperitoneum is present. There is moderate bowel wall thickening extending from the distal transverse colon to the proximal sigmoid colon. Pericolonic inflammatory changes are present. The findings are most consistent with colitis. The remainder of the bowel is unremarkable. There is no evidence of an acute appendicitis or obstruction. Degenerative changes are seen in the spine. There is an old compression deformity of the superior endplate of L 3 which was present on the prior examinations. IMPRESSION: Colitis involving the distal transverse colon, descending colon and the proximal sigmoid colon. HPI <Jason Heath MD - Last Filed: 12/14/17 08:04> General Mode of arrival: EMS . Date/Time Provider Initiated Documentation: 12/14/17 06:31 . Limitations to Documentation: no limitations . Information obtained by: patient, RN notes reviewed and old records reviewed . HPI Narrative: Patient presents to the ED by ambulance with complaint of nausea , vomiting, bloody diarrhea since last night. She has some left-sided abdominal pain. She reports that the diarrhea started first and according to her has been bloody since initial event. She has subsequently developed left- sided abdominal pain, nausea, vomiting. She has been unable to keep anything down. She has been vomiting all night. The diarrhea has slowed down but has not completely stopped. She has a prior history of gastroparesis and was seen by her GI specialist this summer. She has not had something like this previously. She has not been on recent antibiotics. There has been no travel outside of the [place]. There has been no consumption of undercooked beef. Related Data Home Medications Medication Instructions Recorded Confirmed calcium carbonate-vitamin D3 1 ea PO BID tab 08/23/12 12/20/17 [Caltrate with Vitamin D3] esomeprazole magnesium [Nexium] 20 mg PO BID #180 tab-cap 08/31/12 12/20/17 fluticasone [Flonase] 2 spry NS DAILY 06/07/13 12/20/17 albuterol sulfate [ProAir HFA] 2 puff INHALATION QID PRN #3 ea 03/21/17 12/20/17 lisinopril-hydrochlorothiazide 1 tab-cap PO DAILY #90 tab-cap 04/28/17 12/20/17 [Zestoretic] simvastatin [Zocor] 40 mg PO DAILY #90 tab-cap 04/28/17 12/20/17 cholecalciferol (vitamin D3) 2,000 unit PO 2 tablets daily 07/18/17 12/20/17 acetaminophen [Mapap Extra 1,000 mg PO PRN PRN 08/24/17 12/20/17 Strength] fluoxetine [Prozac] 20 mg PO DAILY 12/06/17 12/20/17 montelukast [Singulair] 10 mg PO DAILY PRN 12/06/17 12/20/17 acetaminophen 325 mg PO PRN PRN 12/09/17 12/20/17 fluticasone-salmeterol [Advair 1 puff INHALATION PRN PRN 12/09/17 12/20/17 Diskus] Previous Rx's Medication Instructions Recorded lisinopril-hydrochlorothiazide 1 tab-cap PO DAILY #90 tab-cap 04/28/17 [Zestoretic] simvastatin [Zocor] 40 mg PO DAILY #90 tab-cap 04/28/17 Allergies Allergy/AdvReac Type Severity Reaction Status Date / Time adhesive Allergy Severe SKIN RASH Verified 12/14/17 06:28 Sulfa (Sulfonamide Allergy Intermediate ITCHING Verified 12/14/17 06:28 Antibiotics) losartan Allergy Unknown SWELLING, Verified 12/14/17 06:28 ITCHING NSAIDS (Non-Steroidal AdvReac Severe gastritis Verified 12/14/17 06:28 Anti-Inflamma hydrocodone AdvReac Itching Verified 12/14/17 06:28 General Stated Complaint: Abd Prob CLAUDIA: 3 Review of Systems <Jason Heath MD - Last Filed: 12/14/17 08:04> Constitutional Denies chills, Denies fatigue, Denies fever(s), Denies headache(s), Denies malaise and Denies weakness Eyes Denies eye discharge and Denies eye pain ENT Denies otalgia, Denies facial pain, Denies headache(s), Denies nasal congestion , Denies neck pain, Denies sinus pain and Denies sore throat Cardiovascular Denies chest pain, Denies diaphoresis, Denies syncope, Denies edema, Denies palpitations and Denies dyspnea Respiratory Denies cough and Denies dyspnea Gastrointestinal Reports abdominal pain, Reports hematochezia, Denies constipation, Reports diarrhea, Reports nausea, Reports vomiting and Denies hematemesis Genitourinary Denies hematuria and Denies dysuria Musculoskeletal Denies back pain, Denies myalgias, Denies neck pain and Denies numbness Integumentary/Breasts Denies rash Neurologic Denies syncope, Denies headache(s), Denies focal weakness, Denies numbness and Denies weakness Endocrine Denies fatigue and Denies palpitations Exam <Jason Heath MD - Last Filed: 12/14/17 08:04> Const General: cooperative and other (active dry heaving) Orientation: alert and oriented x3 [facility] Head: normocephalic and atraumatic Mouth: other (dry mucous membranes) Eyes Sclera: sclerae normal Neck Neck: normal visual inspection, trachea midline and supple Resp Effort & Inspection: normal respiratory effort Auscultation: clear to auscultation bilaterally Cardio Rate: regular rate Rhythm: regular rhythm Heart Sounds: S1 normal and S2 normal GI Inspection: non-distended Palpation: soft, not firm, guarding (voluntary) in the LLQ and tender in the LLQ Rectal Exam - female: abnormal stool Rectal exam abnormal stool - female: mucoid stool (bloody mucoid diarrhea in pants) Back/Spine/Pelvis Back: no CVA tenderness Skin General skin exam: no rashes or lesions noted Neuro General: alert, oriented x3, no focal motor deficits and CN's II-XI intact bilaterally Extrem General: normal to inspection and full ROM Course <Jason Heath MD - Last Filed: 12/14/17 08:04> Vital Signs Temperature 98.2 F 12/14/17 06:19 Pulse 89 12/14/17 06:19 Respiratory Rate 20 12/14/17 06:19 Blood Pressure 184/76 H 12/14/17 06:19 Pulse Oximetry 96 12/14/17 06:19 Temperature 98.2 F 12/14/17 06:19 Temperature Source Skin 12/14/17 06:19 Pulse 89 12/14/17 06:19 Respiratory Rate 20 12/14/17 06:19 Respiratory Effort Non-Labored 12/14/17 06:28 Blood Pressure 184/76 H 12/14/17 06:19 Pulse Oximetry 96 12/14/17 06:19 Oxygen Delivery Method Room Air 12/14/17 06:19 Oxygen Flow Rate 0 12/14/17 06:19 Pain Level 3 12/14/17 06:19 Sign Out <Jason Heath MD - Last Filed: 12/14/17 08:04> Sign Out Data: Sign Out Comment: Signed out to Dr. Anjelica Cano pending CT scan completion/ reading. Last updated by Jason Heath MD at 12/14/17 08:00
[2017-12-14 07:14] LABS: ALT 19 U/L (12-78); AST 18 U/L (15-37); Albumin 3.6 g/dL (3.4-5.0); Alkaline Phosphatase 80 U/L (46-116); Anion Gap 11.8 mmol/L (3-11); BUN 27 mg/dL (7-18); Bilirubin, Total 1.2 mg/dL (0.2-1.0); CO2 26.2 mmol/L (21.0-32.0); CREATININE 1.04 mg/dL (0.55-1.02); Chloride 100 mmol/L (98-107); Estimated GFR 51.52 (mL/min/1.73m2); Glucose 226 mg/dL (70-100); Lipase 100 U/L (73-393); Potassium 3.8 mmol/L (3.5-5.1); Sodium 138 mmol/L (136-145)
[2017-12-14] MEDS: Omnipaque 350 MG/ML 100 ML BTL IJ (07:59)
--- NOTE | 2017-12-14 08:26 | DI.VRAD_ITS ---
EXAM: CT Abdomen and Pelvis With Intravenous Contrast EXAM DATE/TIME: 12/14/2017 6:44 AM CLINICAL HISTORY: 77 years old, female; Signs and symptoms; Vomiting TECHNIQUE: Axial computed tomography images of the abdomen and pelvis with intravenous contrast. Coronal and sagittal reformatted images were created and reviewed. COMPARISON: CR LEFT HIP COMPLETE \T\ AP PELVIS 09/28/2017 8:58 AM FINDINGS: Lower thorax: No acute findings. ABDOMEN: Liver: 4 cm cyst in the left lobe of the liver. Possible fatty infiltration. Gallbladder and bile ducts: Cholecystectomy. No significant biliary ductal dilatation. Pancreas: Normal. No ductal dilation. Spleen: Normal. No splenomegaly. Adrenals: Normal. No mass. Kidneys and ureters: No hydronephrosis. Small probable renal cysts bilaterally. Stomach and bowel: Marked colonic wall thickening from the splenic flexure to the sigmoid colon. No evidence of bowel obstruction. Appendix: Nonvisualized appendix. No evidence of appendicitis. PELVIS: Bladder: Unremarkable as visualized. Reproductive: Unremarkable as visualized. ABDOMEN and PELVIS: Intraperitoneal space: Normal. No free air. No significant fluid collection. Bones/joints: Chronic compression deformity of the superior endplate of L3. Degenerative disc disease at L4-5 and L5-S1. No acute fracture. Vasculature: There is atherosclerosis of the abdominal aorta without aneurysm or dissection. Lymph nodes: Normal. No enlarged lymph nodes. IMPRESSION: Severe colitis as above. Dictated and Authenticated by: Bogdan Boykin MD. Ordering:MARQUES POPE MD
[2017-12-14 08:56] LABS: Lactate-non-spesis 2.4 mmol/L (0.6-1.4)
[2017-12-14] MEDS: MetroNIDAZOLE 500 MG/100 ML BAG 100 MG IVPB (09:11)
[2017-12-14] MEDS: Ondansetron 4 MG/2 ML VIAL (10:05)
[2017-12-14] MEDS: CIPROFLOXACIN 400 MG/200 ML BAG 200 MG IVPB (10:08)
== END 2017-12-14 12:46 ==
PROVIDERS: Emergency Medicine; Emergency Provider Student in an Organized Health Care Education/Training Program; PCP Family Medicine
DX: K52.9 Noninfective gastroenteritis and colitis, unspecified (principal); I10 Essential (primary) hypertension
CPT/HCPCS: 36415; 80053; 83690; 96361; 96365; 96367; 96368; 96375; 96376; 99285; 74177; 83605; 85025; J0744; J2405; J3490

== ENCOUNTER → 2017-12-20 12:49 | Outpatient (BNVA) | payer MEDICARE, SELFPAY | PROVIDERS: PCP Family Medicine; Referring Provider Family Medicine; Visit Provider Orthopaedic Surgery | DX: Z47.89 Encounter for other orthopedic aftercare (principal); I10 Essential (primary) hypertension ==

== ENCOUNTER 2018-01-06 08:37 | Outpatient (CLI) | payer MEDICARE, SELFPAY ==
[2018-01-06 11:28] LABS: Hemoglobin A1C 6.3 % (4.5-6.2)
== END 2018-01-06 08:57 ==
PROVIDERS: PCP Family Medicine; Visit Provider Family Medicine
DX: R73.03 Prediabetes (principal)
CPT/HCPCS: 36415; 83036

== ENCOUNTER → 2018-01-09 09:07 | Outpatient (BNVA) | payer MEDICARE, SELFPAY | PROVIDERS: PCP Family Medicine; Referring Provider Family Medicine; Visit Provider Orthopaedic Surgery | DX: M17.11 Unilateral primary osteoarthritis, right knee (principal); I10 Essential (primary) hypertension; Z48.89 Encounter for other specified surgical aftercare | CPT/HCPCS: 20610; J3490 ==

== ENCOUNTER 2018-01-31 09:06 | Outpatient (CLI) | payer MEDICARE, SELFPAY ==
[2018-01-31 12:10] LABS: Abs Immature Grans 0.07 k/cumm (0.0-0.09); Absolute Basophil Count 0.06 k/cumm (0.0-0.2); Absolute Lymphocyte Count 2.32 k/cumm (1.2-3.4); Absolute Neutrophil Count 5.11 k/cumm (1.2-6.7); Basophils % 0.7; Eosinophils % 3.4; HCT 39.2 % (36.0-46.0); HGB 12.9 g/dL (12.0-15.5); Immature Grans % 0.8; Lymphocytes % 26.2; Mean Corp. HGB Concentration 32.9 g/dL (32.0-36.0); Mean Corpuscular Hemoglobin 29.3 pg (27.0-33.0); Mean Corpuscular Volume 89.1 fL (80-95); Mean Platelet Volume 9.4 fL (8.0-11.0); Monocytes % 11.3; Neutrophils % 57.6; Platelet Count 408 x1000/uL (130-400); RBC Distribution Width 13.6 % (11.7-14.6); White Blood Cell Count 8.86 k/cumm (4.4-10.8)
[2018-01-31 12:15] LABS: Bilirubin Negative (Negative); Blood Negative (Negative); Clarity Clear; Glucose Negative (Negative); Ketones Negative (Negative); Leukocyte Esterase Trace (Negative); Nitrite Negative (Negative); Urobilinogen 0.2 EU/dL (Up TO 0.2); pH 6.5 (5-8)
[2018-01-31 12:23] LABS: Anion Gap 10.2 mmol/L (3-11); BUN 27 mg/dL (7-18); Bacteria Few HPF (Negative); C & S Indicated? Yes; CO2 26.8 mmol/L (21.0-32.0); Casts 5-10 Hyaline LPF (Negative); Chloride 101 mmol/L (98-107); Crystals Negative HPF (Negative); Epithelial Cells Few HPF (Negative); Glucose 112 mg/dL (70-100); Mucus Moderate (Negative); Potassium 4.3 mmol/L (3.5-5.1); RBC 0-2 (0-2); Sodium 138 mmol/L (136-145)
== END 2018-01-31 09:26 ==
PROVIDERS: PCP Family Medicine; Referring Provider Family Medicine; Visit Provider Orthopaedic Surgery
DX: M25.561 Pain in right knee (principal); M17.11 Unilateral primary osteoarthritis, right knee; I10 Essential (primary) hypertension; R73.03 Prediabetes; E78.5 Hyperlipidemia, unspecified; J45.909 Unspecified asthma, uncomplicated; K21.9 Gastro-esophageal reflux disease without esophagitis; Z01.818 Encounter for other preprocedural examination
CPT/HCPCS: 36415; 80051; 82947; 84520; 99213; 81003; 81015; 82565; 85025; 87086; 93005; 93010

== ENCOUNTER 2018-02-08 06:49 | Inpatient (IN) | payer MEDICARE, SELFPAY ==
[2018-02-08] VITALS (14 sets, daily range): BP systolic 122–175; BP diastolic 49–96; PULSE 72–102; RESP 16–20; TEMP 36.6–37.5; O2SAT 92–96
[2018-02-08] MEDS: Lactated Ringers 1,000 ML 80 ML IV ×2 (07:55→12:25)
[2018-02-08] MEDS: Bupivacaine LIPOSOME/PF 133 MG/10 ML VIAL IJ (09:11)
[2018-02-08] MEDS: Hydrogen Peroxide 3% 480 ML BTL (10:40)
[2018-02-08] MEDS: fentaNYL 100 MCG/2 ML VIAL IVP ×2 (12:15→12:30)
--- NOTE | 2018-02-08 12:25 | DI.RAD_ITS ---
SYMPTOMS/DIAGNOSIS: RIGHT TOTAL KNEE ARTHROPLASTY RIGHT KNEE: The patient is status post placement of a total knee prosthesis. The components appear well aligned. There are anterior skin teagan and residual postsurgical air in the soft tissues.
[2018-02-08] MEDS: HYDROcodone 5/Acetaminophen 325 TAB PO (12:45)
--- NOTE | 2018-02-08 13:11 | ROE_ITS ---
REPORT OF OPERATIVE PROCEDURE DATE OF SURGERY February 08, 2018 PREOPERATIVE DIAGNOSES Chronic right knee pain with known medial compartment arthritis. POSTOPERATIVE DIAGNOSES Chronic right knee pain with known medial compartment arthritis. Complete articular cartilage loss medial femoral condyle distal aspect. PROCEDURE Right total knee arthroplasty. SURGEON Robb Wellington M.D. PART TIME FLEXIBLE CLERK Maritza Vela PA-C. ANESTHETIC Adductor canal block, followed by general endotracheal by Elise Nelson CRNA PREP ChloraPrep. INDICATIONS This patient has had chronic pain in her right knee. She initially had been responding to Synvisc forrest atments, but then became refractory to them. The last dose of Synvisc did not provide any benefit. Tyesha nelson had an arthroscopic procedure approximately six weeks ago and was found to have a new lateral menis cus tear, but also an area of articular cartilage damage to the mesial aspect of the medial femoral c ondyle. After debriding this, and performing partial lateral meniscectomy, I injected the knee with D urolane. The patient initially had about three days of pain relief, but then her symptoms recurred a nd have been unbearable to her. There was no new history of trauma to the knee, but she has failed al l conservative treatment and has also failed cortical steroid injections. I felt the only option woul d be to proceed with total knee arthroplasty. I discussed the risks and benefits of this in detail. S he understood and wished to proceed. The patient was met at the Day Surgery holding area. I correctly marked her right knee. I reviewed e procedure with the patient and her [id number]. DESCRIPTION OF PROCEDURE The patient underwent adductor canal block using ultrasound. She then underwent General anesthesia. S he received 2 grams of Ancef as a prophylactic antibiotic. A Booker catheter was inserted under steril e technique. A pneumatic tourniquet was applied to the proximal thigh. The right lower extremity was prepped from toes to groin with ChloraPrep. After applying sterile drapes, timeout was instituted an d verifying the planned procedure. The knee was elevated to exsanguinate it and the tourniquet was in flated to 380 mmHg. A standard anterior approach for total knee arthroplasty was utilized. The skin and subcutaneous tissues were incised. Hemostasis was controlled by electrocautery. The incision was carried down through the skin and subcutaneous tissues, and then a medial parapatellar arthrotomy wa s performed. The patella was everted and the knee flexed 90 degrees. There was complete loss of artic ular cartilage over the weightbearing surface of the end of the medial femoral condyle. This was down to subchondral bone. The rest of the knee was in reasonably good shape showing mild chondromalacia a nd softening, but no other acute terminal derangement. The ACL was intact. The previous partial later al meniscectomy and previous medial meniscectomies were visualized. Beginning with standard instrumen tation for a PFC Sigma knee, the distal femur was cut after first removing osteophytes over the media l femoral condyle and medial tibial plateau. An intramedullary guide penny placed in the femur was set at 6 degrees valgus bushing. A distal femoral cut was performed resecting 11 millimeters from the di stal femur. Appropriate anterior and posterior cuts were made for a size 2.5 femoral component. Trial component fit perfectly. Next the posterior cruciate ligament was recessed. The ACL was resected. Retractors were placed aroun d the proximal portion of the tibia and it was felt that the tibial component would be a size 2. A mi nimal resection of the proximal tibia was performed using an oscillating saw trying to orient the mec hanical axis of the tibia as to being perpendicular. I then placed a size 2 trial component into the tibia and reduction of the trial component showed good stability, full confucianist of range of motion . Appropriate intramedullary instrumentation was used for the rotating platform portion of the tibial component and it was felt that a size 2 tibial tray would be appropriate. The patella was measured w ith a caliper and measured 21 millimeters. It was relatively small and a combination of cutting guide and freehand technique was used to resect the articular surface of the patella. It was felt that a 3 2-millimeter tri-pronged patella component would have the most appropriate fit. Fixation holes were d rilled for the polyethylene lugs that would help stabilize the patellar component in place when it wa s cemented. Reduction of the patellar trial showed good stability and no tendency for dislocation. Af ter removing any bone debris and irrigating the knee with pulsatile jet lavage irrigation, the tibial component was cemented. This was done with a separate batch of Methylmethacrylate mixed in a vacuum chamber. This contained antibiotic-laden cement with gentamicin. Standard pressurization of the tibi al tray was accomplished. Extraneous cement was removed. I let the cement cure and care was taken to make sure there was no retained cement debris. Next, the femoral and patellar components were cemented simultaneously. The femoral component was a s ize 2.5 posterior cruciate retaining component and the patella was 32 millimeters. Again, standard p ressurization techniques were utilized and the cement was allowed to cure. A final check of the stabi lity and the flexion and extension gaps of the knee showed this would be satisfactory. The 10-mm size 2.5 polyethylene tray was placed and the knee was stable to flexion and extension with no evidence o f mid flexion instability. The patella tracked perfectly. At this point, Betadine irrigation protoco l was instituted. Dilute Betadine, 17.5 cc and 500 cc of saline was placed in the knee over the cours e of 3 minutes. This was evacuated from the knee and then 1000 cc sterile saline was placed in the k nee joint. The medial parapatellar arthrotomy was then closed with sutures of #1-Vicryl in a figure-o f-eight fashion. The quad tendon portion of the repair was repaired in layers. The peritenon medially was repaired with #2-0 Vicryl. Subcutaneous tissues were repaired with #2-0 Vicryl and the skin was closed with teagan. Sterile bandage was applied consisting of Xeroform gauze, 4x4s, ABD Pads, and 6- inch conforming gauze bandage, followed by two 6-inch Thierry wrap, and a commercial knee immobilization. Prior to closure of the skin, the tourniquet was deflated. Hemostasis was under control. Tranexamic a xin consisting of 3 grams and 100 cc of saline was placed in the wound and in the joint to minimize b lood loss. The patient tolerated the procedure well with estimated blood loss of 25 cc. She had an ex cellent dorsalis pedis pulse and was taken to the Recovery Room in satisfactory condition.
[2018-02-08] MEDS: Acetaminophen 325 MG TAB 650 MG PO ×2 (13:20→20:33)
[2018-02-08] MEDS: MORPHine 10 MG/ML VIAL IVP ×2 (13:58→15:15)
[2018-02-08] MEDS: Ibuprofen 600 MG TAB PO ×2 (13:58→18:25)
--- NOTE | 2018-02-08 14:03 | PT.INNT ---
Date of service: 02/08/18 Time of Service: 14:03 PT Notes PHYSICAL THERAPY NOTE 02/08/18 PT consult received, chart reviewed. CPM brought to patient's room, [employer] SALESPERSON to apply this afternoon. FWW left in room for patient to use with nursing. Rosana Evangelista PT
[2018-02-08] MEDS: POTASSIUM CHLORIDE/D5-0.9%NACL 1,000 ML 125 MEQ IV ×2 (14:05→23:09)
[2018-02-08] MEDS: Normal Saline Flush 10 ML SYR IV (14:06)
--- NOTE | 2018-02-08 14:33 | NUR.NOTE ---
Nursing Note: 1339: pt arrives from pacu via stretcher to room 214. pt alert but drowsy at this time. pt moved via hover from stretcher to bed. pt has louie with clear yellow urine. pt has patent IV in LW. pt has cryo cuff, knee immobilizer to RLE. pt RLE placed on pillow under ankle. pt has sergio wrap and surgical dressing intact. pt remains on o2 r/t h/o interstial lung disease. pt placed on sao2 monitor r/t history. pt states pain is 10/10 and appears uncomfortable. pt had an adductor block prior to surgery. pt given IVP morphine per order; 4mg which alleviates some pain. pt able to take pills with sips of gingerale. pt hr is regular, ls clear but diminished. hypo bs. pt +pp's. scds placed. pt oriented to call [facility] system. continue to monitor.
[2018-02-08] MEDS: Simvastatin 40 MG TAB PO (19:57)
[2018-02-08] MEDS: Esomeprazole 20 MG CAPCR PO (19:57)
[2018-02-09] MEDS: Ibuprofen 600 MG TAB PO ×4 (00:37→17:53)
[2018-02-09 00:47] VITALS: BP 119/66; PULSE 82; RESP 18; TEMP 37.1; O2SAT 99
[2018-02-09] MEDS: MORPHine 10 MG/ML VIAL IVP ×4 (01:52→17:52)
[2018-02-09 07:12] LABS: HCT 32.6 % (36.0-46.0); Mean Corp. HGB Concentration 30.7 g/dL (32.0-36.0); Mean Corpuscular Hemoglobin 28.7 pg (27.0-33.0); Mean Corpuscular Volume 93.4 fL (80-95); Mean Platelet Volume 9.8 fL (8.0-11.0); Platelet Count 251 x1000/uL (130-400); RBC 3.49 m/cumm (4.00-5.20); RBC Distribution Width 14.1 % (11.7-14.6); White Blood Cell Count 9.27 k/cumm (4.4-10.8)
[2018-02-09 07:21] LABS: Anion Gap 9.6 mmol/L (3-11); BUN 18 mg/dL (7-18); CO2 25.4 mmol/L (21.0-32.0); CREATININE 0.94 mg/dL (0.55-1.02); Calcium 8.1 mg/dL (8.5-10.1); Chloride 109 mmol/L (98-107); Glucose 140 mg/dL (70-100); Potassium 4.4 mmol/L (3.5-5.1); Sodium 144 mmol/L (136-145)
[2018-02-09 07:30] VITALS: BP 124/56; PULSE 85; RESP 17; TEMP 37.2; O2SAT 95
--- NOTE | 2018-02-09 07:46 | PDOC.CMIN ---
- If Service Date Differs Date of service: 02/09/18 Time of Service: 07:46 Care Management Initial Assess REASON FOR HOSPITALIZATION:: DJD (R) Knee. PAST MEDICAL HISTORY/PAST SURGICAL HISTORY:: Asthma, gastroparesis, GERD, hypertension, hypercholesterolemia, osteoarthritis. Surgical hx: shoulder arthroscopy, biopsy breast (L), cholecystectomy, right cataract extraction, fx. arm, laproscopic hysterectomy. PREVIOUS FUNCTIONAL STATUS/SOCIAL/FAMILY SUPPORTS:: Teri resides alone in [place]. She has one adult daughter, Daily who lives in [place]. 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 She is independent with her ADLs and transportation. CURRENT FUNCTIONAL STATUS:: Teri is sitting in her chair when CM visits this morning. She is engaged in conversation, makes good eye contact, and is talkative. Teri reports that her pain is 8/10 and calls the RN for medication while CM is in the room. Teri has been up with PT and per report has done well. She will be needing a FWW at discharge and CM spoke with her about [facility] vs[facility] options. Teri has elected to go with [facility] and has signed paperwork for such. FWW is in room for adjustment by PT. Teri has reservations about returning home, as her daughter will not be in [place] to help until the 11th [address] Dr. Wellington told the patient that she could 'swing' at [facility] until the . CM will continue to follow and review options. ADVANCE DIRECTIVES:: None on file at [facility]. Has patient been provided with information about the portal?: Yes Did the patient sign up for the portal?: No CODE STATUS:: Full Code INSURANCE COVERAGE / FINANCIAL ISSUES:: AARP, Medicare. CURRENT HOME/COMMUNITY SERVICES/EQUIPMENT:: No current home or community services. No equipment. PRIMARY CARE PHYSICIAN:: Kingsley Werner MD. POTENTIAL DISCHARGE NEEDS:: Follow up appointment with surgical services. PATIENT/FAMILY EDUCATION NEEDS:: Discharge education, any limitations, and follow up plan of care. Ask Me Three discussion. ANTICIPATED BARRIERS TO DISCHARGE:: No anticipated barriers to discharge. TRANSPORTATION:: Teri will transport via private vehicle with her daughter, Daily. PLAN:: Teri will discharge home when medically ready per MD. Anticipate patient will discharge with no services and follow up with surgical services. CM will continue to offer support to patient and care team regarding discharge planning and disposition.
[2018-02-09] MEDS: Multivitamin w/Minerals TAB 1 TAB PO (07:50)
[2018-02-09] MEDS: Enoxaparin 30 MG/0.3 ML SYR SC ×2 (07:50→19:30)
[2018-02-09] MEDS: FLUoxetine 20 MG CAP PO (07:50)
[2018-02-09] MEDS: Esomeprazole 20 MG CAPCR PO ×2 (07:50→19:31)
[2018-02-09] MEDS: Montelukast 10 MG TAB PO (07:51)
--- NOTE | 2018-02-09 07:52 | INITIAL_ITS ---
- If Service Date Differs Date of service: 02/09/18 Time of Service: 07:46 Care Management Initial Assess REASON FOR HOSPITALIZATION:: DJD (R) Knee. PAST MEDICAL HISTORY/PAST SURGICAL HISTORY:: Asthma, gastroparesis, GERD, hypertension, hypercholesterolemia, osteoarthritis. Surgical hx: shoulder arthroscopy, biopsy breast (L), cholecystectomy, right cataract extraction, fx. arm, laproscopic hysterectomy. PREVIOUS FUNCTIONAL STATUS/SOCIAL/FAMILY SUPPORTS:: Teri resides alone in [place]. She has one adult daughter, Daily who lives in [place]. 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 She is independent with her ADLs and transportation. CURRENT FUNCTIONAL STATUS:: Teri is sitting in her chair when CM visits this morning. She is engaged in conversation, makes good eye contact, and is talkative. Teri reports that her pain is 8/10 and calls the RN for medication while CM is in the room. Teri has been up with PT and per report has done well. She will be needing a FWW at discharge and CM spoke with her about [facility] vs. [facility] options. Teri has elected to go with [facility] and has signed paperwork for such. FWW is in room for adjustment by PT. Teri has reservations about returning home, as her daughter will not be in [place] to help until the 11th of the month. Dr. Wellington told the patient that she could ' swing' at [facility] until the . CM will continue to follow and review options. ADVANCE DIRECTIVES:: None on file at [facility]. Has patient been provided with information about the portal?: Yes Did the patient sign up for the portal?: No CODE STATUS:: Full Code INSURANCE COVERAGE / FINANCIAL ISSUES:: AARP, Medicare. CURRENT HOME/COMMUNITY SERVICES/EQUIPMENT:: No current home or community services. No equipment. PRIMARY CARE PHYSICIAN:: Kingsley Werner MD. POTENTIAL DISCHARGE NEEDS:: Follow up appointment with surgical services. PATIENT/FAMILY EDUCATION NEEDS:: Discharge education, any limitations, and follow up plan of care. Ask Me Three discussion. ANTICIPATED BARRIERS TO DISCHARGE:: No anticipated barriers to discharge. TRANSPORTATION:: Teri will transport via private vehicle with her daughter, Daily. PLAN:: Teri will discharge home when medically ready per MD. Anticipate patient will discharge with no services and follow up with surgical services. CM will continue to offer support to patient and care team regarding discharge planning and disposition.
--- NOTE | 2018-02-09 07:58 | PT.INIE ---
Date of service: 02/09/18 Time of Service: 07:58 PT Notes Inpatient Physical Therapy Evaluation Date: 02/09/2018 Referring Doctor: Robb Wellington PT Orders: PT CONSULT: Right total knee arthroplasty weight-bear as tolerated CPM protocol as tolerated Precautions: WBAT RLE, knee immobilizer for right lower extremity with out of bed activity Patient Profile/Admitting Diagnosis: Patient is a 77-year-old female status post right total knee arthroplasty by Dr. Wellington 02/08/2018 PMHX: Open reduction internal fixation right humerus, chronic back pain, right lateral meniscectomy, osteoarthritis, asthma, hypertension, gastroesophageal reflux disease, gastroparesis, hypertension, hypercholesterolemia, cataract extraction, hysterectomy, cholecystectomy Social History/Home Situation: Lives in house with baseline mobility independent gait without assistive device, independent ADLs Equipment Owned/DME: None Subjective: Patient lying in bed agreeable to PT consult, worried about her recovery process and how long it will take. Objective: General Observation: IV right upper extremity, knee immobilizer right lower extremity, Cryo/Cuff right knee, Booker Mental Status: A and O x3 Pain: 4/10 right knee Bed Mobility/Transfers: *Knee immobilizer for all transfers Supine to sit: HOB 30 degrees independent Sit to stand: CGA FWW Bed to chair: CGA FWW Stand to sit: SBA cues for hand placement. Patient positioned in stool with right lower extremity elevated on foot rest and pillows. Gait: CGA with FWW 50feet x2, WBAT RLE, slow steady step to gait pattern, instructed provided for syrup for sequencing. Patient gets anxious very easily requiring cues for breathing and pacing of activity, and positive encouragement. Therex: Patient has preop packet for TKA, initiated ankle pumps, quad sets, glutes sets x20 reps Balance: Static Sitting: Normal Dynamic Sitting: Normal Static Standing: Fair Dynamic Standing: Fair Special Tests: Mobility Limitations Standardized Measure [facility] AM-PAC 6 clicks Basic Mobility Inpatient Short Form: Raw Score: 18 standardized Score: 43.63 CMS Score: 46.58% CMS Modifier: CK Informed Consent/Education: Patient instructed in purpose of PT consult and plan of care. Assessment: Patient is a 77 year old female referred to physical therapy services with the diagnosis of status post right total knee arthroplasty by Dr. Wellington 02/08/2018 in setting of open reduction internal fixation right humerus, chronic back pain, right lateral meniscectomy, osteoarthritis, asthma. Pt presents with clinical signs and symptoms consistent with postop TKA, as demonstrated by the following impairment level findings: Weakness right quadricep, decreased strength with standing transfers and gait mobility requiring use of FWW to prevent falls postoperatively, decreased static and dynamic standing balance, decreased range of motion right knee, decreased stair mobility. Patient will benefit from skilled therapy intervention for progressive strengthening, range of motion and mobility training. Impairments are contributing to the following functional limitations: AMPAC score CMS Score: 46.58% Patient is assessed as a Moderate 36605 complexity based on the following: History: See above Examination: See above Presentation: Evolving Decision Making: MPAC score CMS Score: 46.58% Goals: Goals X1 week 1. Supine-Sit: Independent 2. Sit-Supine: Independent 3. Sit-Stand: Supervision with FWW 4. Stand-Sit: Independent 5. Bed-Chair: Supervision with FWW 6. Chair-Bed: Supervision with FWW 7. Gait: SBA with FW W1 100 feet x2, WBAT RLE 8. Stairs: TBD 9. Independent with home exercise program for TKA Plan of Care/Treatment Plan: 1-2x/day, 7 days/week x 1 week. Plan of care has been reviewed with the SPORTS BOOK WRITER providing the service under Physical Therapy direction. Initiate Physical Therapy intervention for strengthening, bed mobility, transfers, gait, stairs, balance training, use of assistive device. DISCHARGE RECOMMENDATIONS: Home with FWW and home or outpatient PT TREATMENT CODE/TIME: 25 minutes 7:53 AM IE G Codes in the area mobility of walking and moving around: current status [id number] CK; projected status GP [id number]. Discharge status (if discharging) GP [id number] AMPA score CMS Score: 46.58% Rosana Evangelista PT Disclaimer: This note was created using [employer] voice recognition software. It was reviewed for major content. However, there may be multiple small discrepancies and errors due to the voice recognition aspects of the software.
--- NOTE | 2018-02-09 08:01 | IN_ITS ---
Date of service: 02/09/18 Time of Service: 07:58 PT Notes Inpatient Physical Therapy Evaluation Date: 02/09/2018 Referring Doctor: Robb Wellington PT Orders: PT CONSULT: Right total knee arthroplasty weight-bear as tolerated CPM protocol as tolerated Precautions: WBAT RLE, knee immobilizer for right lower extremity with out of bed activity Patient Profile/Admitting Diagnosis: Patient is a 77-year-old female status post right total knee arthroplasty by Dr. Wellington 02/08/2018 PMHX: Open reduction internal fixation right humerus, chronic back pain, right lateral meniscectomy, osteoarthritis, asthma, hypertension, gastroesophageal reflux disease, gastroparesis, hypertension, hypercholesterolemia, cataract extraction, hysterectomy, cholecystectomy Social History/Home Situation: Lives in house with baseline mobility independent gait without assistive device, independent ADLs Equipment Owned/DME: None Subjective: Patient lying in bed agreeable to PT consult, worried about her recovery process and how long it will take. Objective: General Observation: IV right upper extremity, knee immobilizer right lower extremity, Cryo/Cuff right knee, Booker Mental Status: A and O x3 Pain: 4/10 right knee Bed Mobility/Transfers: *Knee immobilizer for all transfers Supine to sit: HOB 30 degrees independent Sit to stand: CGA FWW Bed to chair: CGA FWW Stand to sit: SBA cues for hand placement. Patient positioned in stool with right lower extremity elevated on foot rest and pillows. Gait: CGA with FWW 50feet x2, WBAT RLE, slow steady step to gait pattern, instructed provided for syrup for sequencing. Patient gets anxious very easily requiring cues for breathing and pacing of activity, and positive encouragement. Therex: Patient has preop packet for TKA, initiated ankle pumps, quad sets, glutes sets x20 reps Balance: Static Sitting: Normal Dynamic Sitting: Normal Static Standing: Fair Dynamic Standing: Fair Special Tests: Mobility Limitations Standardized Measure [facility] AM-PAC 6 clicks Basic Mobility Inpatient Short Form: Raw Score: 18 standardized Score: 43.63 CMS Score: 46.58% CMS Modifier: CK Informed Consent/Education: Patient instructed in purpose of PT consult and plan of care. Assessment: Patient is a 77 year old female referred to physical therapy services with the diagnosis of status post right total knee arthroplasty by Dr. Wellington 02/08/2018 in setting of open reduction internal fixation right humerus , chronic back pain, right lateral meniscectomy, osteoarthritis, asthma. Pt presents with clinical signs and symptoms consistent with postop TKA, as demonstrated by the following impairment level findings: Weakness right quadricep, decreased strength with standing transfers and gait mobility requiring use of FWW to prevent falls postoperatively, decreased static and dynamic standing balance, decreased range of motion right knee, decreased stair mobility. Patient will benefit from skilled therapy intervention for progressive strengthening, range of motion and mobility training. Impairments are contributing to the following functional limitations: AMPAC score CMS Score: 46.58% Patient is assessed as a Moderate 10907 complexity based on the following: History: See above Examination: See above Presentation: Evolving Decision Making: MPAC score CMS Score: 46.58% Goals: Goals X1 week 1. Supine-Sit: Independent 2. Sit-Supine: Independent 3. Sit-Stand: Supervision with FWW 4. Stand-Sit: Independent 5. Bed-Chair: Supervision with FWW 6. Chair-Bed: Supervision with FWW 7. Gait: SBA with FW W1 100 feet x2, WBAT RLE 8. Stairs: TBD 9. Independent with home exercise program for TKA Plan of Care/Treatment Plan: 1-2x/day, 7 days/week x 1 week. Plan of care has been reviewed with the FOREST TECHNICIAN providing the service under Physical Therapy direction. Initiate Physical Therapy intervention for strengthening, bed mobility, transfers, gait, stairs, balance training, use of assistive device. DISCHARGE RECOMMENDATIONS: Home with FWW and home or outpatient PT TREATMENT CODE/TIME: 25 minutes 7:53 AM IE G Codes in the area mobility of walking and moving around: current status [id number] CK; projected status GP [id number]. Discharge status (if discharging) GP [id number] AMPA score CMS Score: 46.58% Rosana Evangelista PT Disclaimer: This note was created using [employer] voice recognition software. It was reviewed for major content. However, there may be multiple small discrepancies and errors due to the voice recognition aspects of the software.
[2018-02-09] MEDS: HYDROcodone 5/Acetaminophen 325 TAB PO ×3 (08:24→16:02)
[2018-02-09] MEDS: POTASSIUM CHLORIDE/D5-0.9%NACL 1,000 ML 125 MEQ IV ×2 (08:25→16:03)
--- NOTE | 2018-02-09 08:33 | W.PM.PROGNOT ---
Date of Service Date of service: 02/09/18 Time of Service: 08:33 Assessment and Plan (1) Failed total knee arthroplasty: Current visit: No Status: Acute (2) Arthritis of left knee: Current visit: Yes Status: Acute Status post right total knee arthroplasty doing very well subjectively. Hemoglobin is 10.0 platelet count is 225,000 glucose is up slightly to 140 otherwise electrolytes are within normal limits we will begin PT. Anticipate she will need swing bed status for a few days until she is able to independently ambulate and go home. She lives alone and the closest family member is in [facility]. Subjective Interval history since last seen: Patient is feeling well. She is sitting up in a chair smiling eating breakfast. She states for the first time in 4 months she does not have pain when she steps on her right knee. Exam Neuro Other: She has no neurovascular deficits of the right foot. Objective Objective Clinical Data: Abnormal lab results 02/09/18 02/09/18 Range/Units 06:35 06:35 RBC 3.49 L (4.00-5.20) m/cumm Hgb 10.0 L (12.0-15.5) g/dL Hct 32.6 L (36.0-46.0) % MCHC 30.7 L (32.0-36.0) g/dL Chloride 109 H (98-107) mmol/L Glucose 140 H (70-100) mg/dL Calcium 8.1 L (8.5-10.1) mg/dL Vital Signs Temperature 98.8 F 02/09/18 00:47 Temperature Source Tympanic 02/09/18 00:47 Pulse 82 02/09/18 00:47 Pulse Rhythm Regular 02/08/18 20:44 Respiratory Rate 18 02/09/18 00:47 Respiratory Effort Non-Labored 02/08/18 20:44 Respiratory Depth Normal 02/08/18 20:44 Respiratory Pattern Normal 02/08/18 20:44 Blood Pressure 119/66 02/09/18 00:47 Pulse Oximetry 99 02/09/18 00:47 Respiratory End-tidal CO2 35 02/08/18 13:30 Oxygen Delivery Method Nasal Cannula 02/09/18 00:47 Oxygen Flow Rate 2 02/09/18 00:47 Pain Level 4 02/09/18 08:24 Intake & Output 1202/08/18 02/09/18 11:59 23:59 11:59 Intake Total 950 / 950 2203.667 / 2203.667 820.833 / 820.833 Output Total 170 / 170 550 / 550 Balance 780 / 780 2203.667 / 2203.667 270.833 / 270.833 Weight 147 lb 14.883 oz Intake: IV 950 / 950 1928.667 / 1928.667 720.833 / 720.833 Oral 275 / 275 100 / 100 Output: Urine 150 / 150 550 / 550 Estimated Blood Loss Other: Urine Color Yellow Yellow Yellow Urine Appearance Clear Clear Clear Emesis Description None None Laboratory Results WBC 9.27 k/cumm (4.4-10.8) 02/09/18 06:35 RBC 3.49 m/cumm (4.00-5.20) L 02/09/18 06:35 Hgb 10.0 g/dL (12.0-15.5) L 02/09/18 06:35 Hct 32.6 % (36.0-46.0) L 02/09/18 06:35 MCV 93.4 fL (80-95) 02/09/18 06:35 MCH 28.7 pg (27.0-33.0) 02/09/18 06:35 MCHC 30.7 g/dL (32.0-36.0) L 02/09/18 06:35 RDW 14.1 % (11.7-14.6) 02/09/18 06:35 Plt Count 251 x1000/uL (130-400) D 02/09/18 06:35 MPV 9.8 fL (8.0-11.0) 02/09/18 06:35 Sodium 144 mmol/L (136-145) 02/09/18 06:35 Potassium 4.4 mmol/L (3.5-5.1) 02/09/18 06:35 Chloride 109 mmol/L (98-107) H 02/09/18 06:35 Carbon Dioxide 25.4 mmol/L (21.0-32.0) 02/09/18 06:35 Anion Gap 9.6 mmol/L (3-11) 02/09/18 06:35 BUN 18 mg/dL (7-18) 02/09/18 06:35 Creatinine 0.94 mg/dL (0.55-1.02) 02/09/18 06:35 Estimated GFR/1.73 m2 57.90 (mL/min/1.73m2) 02/09/18 06:35 Glucose 140 mg/dL (70-100) H 02/09/18 06:35 Calcium 8.1 mg/dL (8.5-10.1) L 02/09/18 06:35
[2018-02-09] MEDS: Fluticasone NASAL SPRAY 16 GM BTL NS (09:47)
--- NOTE | 2018-02-09 10:34 | PT.INTREAT ---
Date of service: 02/09/18 Time of Service: 10:34 PT Notes Inpatient Physical Therapy Treatment Note Date: 02/09/18 PRECAUTIONS: WABT on R SUBJECTIVE: Gela states that she is feeling good and wants to get up and walk. OBJECTIVE: PAIN: Patient c/o R knee pain with active flexion BED MOBILITY/TRANSFERS Sit-supine: I with HOB flat Sit-stand: SBA Stand-sit: SBA GAIT Assistive Device: FWW Weight bearing: WBAT on R Assist: SBA Distance: 200' Deviation: Step through instruction THEREX: Patient completed a LE strengthening and stabilization program, as per flow sheet. Patient was able to perform active SLR x10, independently. Patient requires assist with knee flexion exercise. Patient ends with cryocuff to right knee. ASSESSMENT: Patient tolerated session well, with complaint of R knee pain with active flexion exercise only. Patient was able to tolerate a progression in her gait distance with FWW support. Patient was also able to tolerate a progression in her ther ex program with the addition of SLR, heel slides, and hip abduction exercises. Patient would benefit from continued gait and transfer training as well as strengthening for improved mobility. PLAN: Continue with PT's POC TREATMENT CODE/TIME: 30 minutes; TA/TP
[2018-02-09 11:40] VITALS: BP 154/71; PULSE 83; RESP 17; TEMP 37.7; O2SAT 92
[2018-02-09 16:01] VITALS: BP 119/61; PULSE 83; RESP 18; TEMP 37.6; O2SAT 93
[2018-02-09] MEDS: Normal Saline Flush 10 ML SYR IV (17:52)
[2018-02-09] MEDS: Simvastatin 40 MG TAB PO (19:31)
[2018-02-09 19:55] VITALS: BP 152/89; PULSE 88; RESP 18; TEMP 37.3; O2SAT 94
[2018-02-10] VITALS (7 sets, daily range): BP systolic 119–173; BP diastolic 63–72; PULSE 80–94; RESP 16–20; TEMP 36.2–37.8; O2SAT 91–96
[2018-02-10] MEDS: Ibuprofen 600 MG TAB PO ×3 (00:24→19:45)
[2018-02-10] MEDS: POTASSIUM CHLORIDE/D5-0.9%NACL 1,000 ML 125 MEQ IV (00:46)
[2018-02-10] MEDS: HYDROcodone 5/Acetaminophen 325 TAB PO ×2 (04:43→09:12)
[2018-02-10] MEDS: MORPHine 10 MG/ML VIAL IVP (05:04)
[2018-02-10] MEDS: Normal Saline Flush 10 ML SYR IV (05:04)
[2018-02-10 07:14] LABS: HCT 32.3 % (36.0-46.0); HGB 10.1 g/dL (12.0-15.5); Mean Corp. HGB Concentration 31.3 g/dL (32.0-36.0); Mean Corpuscular Hemoglobin 29.2 pg (27.0-33.0); Mean Corpuscular Volume 93.4 fL (80-95); Mean Platelet Volume 10.3 fL (8.0-11.0); Platelet Count 217 x1000/uL (130-400); RBC 3.46 m/cumm (4.00-5.20); RBC Distribution Width 14.4 % (11.7-14.6); White Blood Cell Count 8.06 k/cumm (4.4-10.8)
[2018-02-10 07:24] LABS: Anion Gap 9.2 mmol/L (3-11); BUN 12 mg/dL (7-18); CO2 24.8 mmol/L (21.0-32.0); CREATININE 0.85 mg/dL (0.55-1.02); Calcium 8.4 mg/dL (8.5-10.1); Chloride 107 mmol/L (98-107); Glucose 156 mg/dL (70-100); Potassium 4.4 mmol/L (3.5-5.1); Sodium 141 mmol/L (136-145)
--- NOTE | 2018-02-10 08:27 | PT.INTREAT ---
Date of service: 02/10/18 Time of Service: 08:27 PT Notes Inpatient Physical Therapy Treatment Note Date: 02/10/18 PRECAUTIONS: WBAT on R SUBJECTIVE: Gela states that she had a hard night and that she is having trouble breathing. OBJECTIVE: PAIN: Patient c/o pain with knee flexion BED MOBILITY/TRANSFERS Supine-sit: I Sit-stand: S Stand-sit: S GAIT Assistive Device: FWW Weight bearing: WBAT On R Assist: CGA Distance: 20'x2 THEREX: Patient completed a lower extremity strengthening and stabilization program, as per flow sheet. Patient required assist with SLR exercise this morning. R knee AAROM is 8-73 degrees. Patient ends with cryocuff to right knee. ASSESSMENT: Patient tolerated session with complaints of right knee pain with knee flexion. Patient appeared limited due to difficulty with breathing this morning. Patient would benefit from continued strengthening as well as gait and transfer training for improved mobility. PLAN: Continue with PT's POC TREATMENT CODE/TIME: 25 minutes; TA/TP
--- NOTE | 2018-02-10 08:40 | W.PM.PROGNOT ---
Date of Service Date of service: 02/10/18 Time of Service: 08:40 Assessment and Plan (1) Arthritis of left knee: Current visit: Yes Status: Acute Right total knee arthroplasty with recent productive cough. Her saturations are 93% on room air of the nurses have started on 1 L nonetheless she has a long history of COPD and psittacosis she is getting all of her normal respiratory meds. She did not get her Zestoretic as we did not have this in our formulary. However I gone directly to the pharmacist to have this cnc router operator arrived in its component forms to which his lisinopril and 20 mg and 12.5 mg of HCTZ. Nonetheless this was not placed in the patient's medication list the patient's nurse today informed me of this and I ordered her lisinopril 20 mg to be given this morning as well as 25 mg of HCTZ because she missed 1 dose she will then get her normal dose of 20/12.5 starting tomorrow. Her hemoglobin and electrolytes are within normal limits her blood sugar is mildly elevated overall I see satisfactory postoperative recovery from a right total knee arthroplasty pain control still an issue and productive cough is a history of but this should respond to the patient's inhalers which she has available to her from her purse Subjective Interval history since last seen: Patient is somewhat discouraged today she thinks she may have overdone it with physical therapy. She is developed a cough last night. Her incentive spirometry is broken and I provided her with a new one. She is not running any fever. Her ALT intake has been reasonably well. She is voiding without any dysuria. She still requiring morphine IV for breakthrough pain control Exam Extrem Other: Right knee bandage is changed by there is no drainage on the gauze. There is slight erythema there is no sign of any hematoma formation. Neurovascular exam of the right foot continues to be intact Objective Objective Clinical Data: Abnormal lab results 02/10/18 02/10/18 Range/Units 06:20 06:20 RBC 3.46 L (4.00-5.20) m/cumm Hgb 10.1 L (12.0-15.5) g/dL Hct 32.3 L (36.0-46.0) % MCHC 31.3 L (32.0-36.0) g/dL Glucose 156 H (70-100) mg/dL Calcium 8.4 L (8.5-10.1) mg/dL Vital Signs Temperature 97.2 F L 02/10/18 07:31 Temperature Source Temporal Artery Scan 02/10/18 07:31 Pulse 94 H 02/10/18 07:31 Pulse Rhythm Regular 02/09/18 21:13 Respiratory Rate 18 02/10/18 07:31 Respiratory Effort Non-Labored 02/09/18 21:13 Respiratory Depth Normal 02/09/18 21:13 Respiratory Pattern Normal 02/09/18 21:13 Blood Pressure 173/72 H 02/10/18 07:31 Pulse Oximetry 93 L 02/10/18 07:31 Respiratory End-tidal CO2 35 02/08/18 13:30 Oxygen Delivery Method Nasal Cannula 02/10/18 07:31 Oxygen Flow Rate 1 02/10/18 07:31 Pain Level 2 02/10/18 07:31 Comment 02/10/18 03:40 Intake & Output 02/09/18 02/09/18 02/10/18 11:59 23:59 11:59 Intake Total 1180.833 / 7514.551 9709.167 / 5489.664 7835 / 1300 Output Total 550 / 550 800 / 800 1000 / 1000 Balance 630.833 / 630.833 784.167 / 784.167 300 / 300 Intake: IV 720.833 / 720.833 984.167 / 129.317 9177 / 1000 Oral 460 / 460 600 / 600 300 / 300 Output: Urine 550 / 550 800 / 800 1000 / 1000 Other: Urine Color Yellow Yellow Yellow Urine Appearance Clear Clear Clear Voiding Methods Bedside Commode Bedside Commode Laboratory Results WBC 8.06 k/cumm (4.4-10.8) 02/10/18 06:20 RBC 3.46 m/cumm (4.00-5.20) L 02/10/18 06:20 Hgb 10.1 g/dL (12.0-15.5) L 02/10/18 06:20 Hct 32.3 % (36.0-46.0) L 02/10/18 06:20 MCV 93.4 fL (80-95) 02/10/18 06:20 MCH 29.2 pg (27.0-33.0) 02/10/18 06:20 MCHC 31.3 g/dL (32.0-36.0) L 02/10/18 06:20 RDW 14.4 % (11.7-14.6) 02/10/18 06:20 Plt Count 217 x1000/uL (130-400) 02/10/18 06:20 MPV 10.3 fL (8.0-11.0) 02/10/18 06:20 Sodium 141 mmol/L (136-145) 02/10/18 06:20 Potassium 4.4 mmol/L (3.5-5.1) 02/10/18 06:20 Chloride 107 mmol/L (98-107) 02/10/18 06:20 Carbon Dioxide 24.8 mmol/L (21.0-32.0) 02/10/18 06:20 Anion Gap 9.2 mmol/L (3-11) 02/10/18 06:20 BUN 12 mg/dL (7-18) D 02/10/18 06:20 Creatinine 0.85 mg/dL (0.55-1.02) 02/10/18 06:20 Estimated GFR/1.73 m2 >= 60.00 (mL/min/1.73m2) 02/10/18 06:20 Glucose 156 mg/dL (70-100) H 02/10/18 06:20 Calcium 8.4 mg/dL (8.5-10.1) L 02/10/18 06:20
--- NOTE | 2018-02-10 08:46 | PGE_ITS ---
Date of Service Date of service: 02/10/18 Time of Service: 08:40 Assessment and Plan (1) Arthritis of left knee: Current visit: Yes Status: Acute Right total knee arthroplasty with recent productive cough. Her saturations are 93% on room air of the nurses have started on 1 L nonetheless she has a long history of COPD and psittacosis she is getting all of her normal respiratory meds. She did not get her Zestoretic as we did not have this in our formulary. However I gone directly to the pharmacist to have this plumber pipe fitting arrived in its component forms to which his lisinopril and 20 mg and 12.5 mg of HCTZ. Nonetheless this was not placed in the patient's medication list the patient's nurse today informed me of this and I ordered her lisinopril 20 mg to be given this morning as well as 25 mg of HCTZ because she missed 1 dose she will then get her normal dose of 20/12.5 starting tomorrow. Her hemoglobin and electrolytes are within normal limits her blood sugar is mildly elevated overall I see satisfactory postoperative recovery from a right total knee arthroplasty pain control still an issue and productive cough is a history of but this should respond to the patient's inhalers which she has available to her from her purse Subjective Interval history since last seen: Patient is somewhat discouraged today she thinks she may have overdone it with physical therapy. She is developed a cough last night. Her incentive spirometry is broken and I provided her with a new one. She is not running any fever. Her ALT intake has been reasonably well. She is voiding without any dysuria. She still requiring morphine IV for breakthrough pain control Exam Extrem Other: Right knee bandage is changed by there is no drainage on the gauze. There is slight erythema there is no sign of any hematoma formation. Neurovascular exam of the right foot continues to be intact Objective Objective Clinical Data: Abnormal lab results 02/10/18 02/10/18 Range/Units 06:20 06:20 RBC 3.46 L (4.00-5.20) m/cumm Hgb 10.1 L (12.0-15.5) g/dL Hct 32.3 L (36.0-46.0) % MCHC 31.3 L (32.0-36.0) g/dL Glucose 156 H (70-100) mg/dL Calcium 8.4 L (8.5-10.1) mg/dL Vital Signs Temperature 97.2 F L 02/10/18 07:31 Temperature Source Temporal Artery Scan 02/10/18 07:31 Pulse 94 H 02/10/18 07:31 Pulse Rhythm Regular 02/09/18 21:13 Respiratory Rate 18 02/10/18 07:31 Respiratory Effort Non-Labored 02/09/18 21:13 Respiratory Depth Normal 02/09/18 21:13 Respiratory Pattern Normal 02/09/18 21:13 Blood Pressure 173/72 H 02/10/18 07:31 Pulse Oximetry 93 L 02/10/18 07:31 Respiratory End-tidal CO2 35 02/08/18 13:30 Oxygen Delivery Method Nasal Cannula 02/10/18 07:31 Oxygen Flow Rate 1 02/10/18 07:31 Pain Level 2 02/10/18 07:31 Comment 02/10/18 03:40 Intake & Output 02/09/18 02/09/18 02/10/18 11:59 23:59 11:59 Intake Total 1180.833 / 5620.375 3208.167 / 3763.295 9819 / 1300 Output Total 550 / 550 800 / 800 1000 / 1000 Balance 630.833 / 630.833 784.167 / 784.167 300 / 300 Intake: IV 720.833 / 720.833 984.167 / 166.659 2538 / 1000 Oral 460 / 460 600 / 600 300 / 300 Output: Urine 550 / 550 800 / 800 1000 / 1000 Other: Urine Color Yellow Yellow Yellow Urine Appearance Clear Clear Clear Voiding Methods Bedside Commode Bedside Commode Laboratory Results WBC 8.06 k/cumm (4.4-10.8) 02/10/18 06:20 RBC 3.46 m/cumm (4.00-5.20) L 02/10/18 06:20 Hgb 10.1 g/dL (12.0-15.5) L 02/10/18 06:20 Hct 32.3 % (36.0-46.0) L 02/10/18 06:20 MCV 93.4 fL (80-95) 02/10/18 06:20 MCH 29.2 pg (27.0-33.0) 02/10/18 06:20 MCHC 31.3 g/dL (32.0-36.0) L 02/10/18 06:20 RDW 14.4 % (11.7-14.6) 02/10/18 06:20 Plt Count 217 x1000/uL (130-400) 02/10/18 06:20 MPV 10.3 fL (8.0-11.0) 02/10/18 06:20 Sodium 141 mmol/L (136-145) 02/10/18 06:20 Potassium 4.4 mmol/L (3.5-5.1) 02/10/18 06:20 Chloride 107 mmol/L (98-107) 02/10/18 06:20 Carbon Dioxide 24.8 mmol/L (21.0-32.0) 02/10/18 06:20 Anion Gap 9.2 mmol/L (3-11) 02/10/18 06:20 BUN 12 mg/dL (7-18) D 02/10/18 06:20 Creatinine 0.85 mg/dL (0.55-1.02) 02/10/18 06:20 Estimated GFR/1.73 m2 >= 60.00 (mL/min/1.73m2) 02/10/18 06:20 Glucose 156 mg/dL (70-100) H 02/10/18 06:20 Calcium 8.4 mg/dL (8.5-10.1) L 02/10/18 06:20
[2018-02-10] MEDS: Esomeprazole 20 MG CAPCR PO ×2 (09:12→19:45)
[2018-02-10] MEDS: Hydrochlorothiazide 25 MG TAB PO (09:13)
[2018-02-10] MEDS: Lisinopril 20 MG TAB PO (09:13)
[2018-02-10] MEDS: Enoxaparin 30 MG/0.3 ML SYR SC ×2 (09:13→19:45)
[2018-02-10] MEDS: Multivitamin w/Minerals TAB 1 TAB PO (09:13)
[2018-02-10] MEDS: FLUoxetine 20 MG CAP PO (09:13)
[2018-02-10] MEDS: Montelukast 10 MG TAB PO (09:13)
[2018-02-10] MEDS: diphenhydrAMINE 25 MG CAP PO ×2 (10:45→17:11)
--- NOTE | 2018-02-10 12:13 | PDOC.CMPRO ---
- If Service Date Differs Date of service: 02/10/18 Time of Service: 12:13 Care Management Progress Note S/O: Gela is sitting in her bed when CM visits this morning. She is engaged in conversation, makes good eye contact, and is talkative. Gela reports her pain is a 2/10 which is much improved from yesterday. Working with PT obviously increases the pain and she continues to receive IBU and IV morphine for pain as needed. Gela's louie is still in place and she continues to receive IV fluids and antibiotics. A: 77 year old female s/t day 2 for DJD right knee. P: Gela will discharge home when medically ready per MD. Anticipate patient will discharge home with no services and follow up with surgical services. Gela has spoken with Dr. Wellington about swingbed status as her daughter Gela will transport via private vehicle with her daughter, Daily. CM will continue to offer support to patient, family, and care team regarding discharge planning and disposition.
--- NOTE | 2018-02-10 14:03 | PT.INTREAT ---
Date of service: 02/10/18 Time of Service: 13:32 PT Notes Inpatient Physical Therapy Treatment Note Date:02/10/18 PRECAUTIONS: WBAT R LE, knee immobilizer with gait SUBJECTIVE: Pt lying in bed with cryocuff on R knee, states she is feeling better this afternoon. Agreeable to PT consult. OBJECTIVE: General observation: sergio wrap R LE, knee immobilizer for gait, cryocuff while in bed on R knee PAIN: c/o pain with flexion R Knee, otherwise no complaints BED MOBILITY/TRANSFERS * knee immobilizer on for all transfers- pt instructed in donning/doffing KI Rolling L/R: independent Supine-sit: HOB 30 degrees, independent Sit-stand: supervision with FWW Stand-sit: supervision Sit-supine: HOB flat, independent GAIT * knee immobilizer on for all gait Assistive Device: FWW Weight bearing: WBAT R LE Assist: SBA Distance: 150ft Deviation: step to gait pattern, pt slightly short of breath, instructed in pacing and energy conservation techniques due to having asthma. Pt took 2 20 second rest breaks during gait for breathing recovery, able to demonstrate good pacing of gait mobilty. Pt returned to bed after gait session, cryocuff applied to R knee THEREX: TKA post op therex performed in supine, see flow sheet for details. ROM: R knee AROM -7extension to 80 flexion ASSESSMENT: Pt mobilizing well with transfers and gait with FWW, improved pacing of activities due to asthma. Initiating SLR R LE, not yet able to SLR independently. R knee AROM improved. Continue TKA rehab program. PLAN: Progress R knee AROM Progress R quad strengthening Progress transfers/gait mobility TREATMENT CODE/TIME: 32 min TAx1 TPx1 [id number] Rosana Evangelista PT
--- NOTE | 2018-02-10 15:10 | CHAPLAIN ---
Teri is a member of the [employer] and her sales mgr, Rev. Dami Bernstein has been in a few times to visit with her. She is feeling better and is happy about making progress.
[2018-02-10] MEDS: Simvastatin 40 MG TAB PO (19:45)
[2018-02-10] MEDS: Docusate Sodium 100 MG CAP PO (19:47)
[2018-02-11] VITALS (10 sets, daily range): BP systolic 165–189; BP diastolic 66–83; PULSE 85–91; RESP 17–18; TEMP 36.1–38.1; O2SAT 91–98
[2018-02-11] MEDS: Ibuprofen 600 MG TAB PO ×4 (00:02→21:42)
[2018-02-11] MEDS: Acetaminophen 325 MG TAB 650 MG PO ×3 (00:02→15:38)
--- NOTE | 2018-02-11 08:37 | PGE_ITS ---
Date of Service Date of service: 02/11/18 Time of Service: 08:32 Assessment and Plan (1) Arthritis of left knee: Current visit: Yes Status: Acute Significant improvement of right total knee arthroplasty. Cough without deteriorating saturations. Cepacol lozenges ordered as well as citracal. PATIENT WANTS TO TAKE SHOWER. Anticipate discharge home on tuesday02/14/18 when daughter from [place] arrives and will stay with her. Subjective Interval history since last seen: Patient is feeling much better today, She still has a cough but it is minimally productive. Her oxygen saturaionsare excellent. She walked 150 feet yesterday afternoon and can flex to80 degrees. Exam Extrem Other: No neurovaascular deficits of right foot. No unusual swelling. Objective Objective Clinical Data: Vital Signs Temperature 97.9 F 02/11/18 03:57 Temperature Source Tympanic 02/11/18 03:57 Pulse 85 02/11/18 03:57 Pulse Rhythm Regular 02/11/18 07:52 Respiratory Rate 18 02/11/18 03:57 Respiratory Effort Non-Labored 02/11/18 07:52 Respiratory Depth Normal 02/11/18 07:52 Respiratory Pattern Normal 02/11/18 07:52 Blood Pressure 165/79 H 02/11/18 03:57 Pulse Oximetry 93 L 02/11/18 03:57 Respiratory End-tidal CO2 35 02/08/18 13:30 Oxygen Delivery Method Room Air 02/11/18 03:57 Oxygen Flow Rate 0 02/11/18 03:57 Pain Level 2 02/11/18 07:54 Comment 02/10/18 03:40 Intake & Output 02/10/18 02/10/18 02/11/18 11:59 23:59 11:59 Intake Total 3030 / 3030 490 / 490 Output Total 1000 / 1000 500 / 500 300 / 300 Balance 2029 -10 / -10 -300 / -300 Intake: IV 1999 Oral 1030 / 1030 490 / 490 Output: Urine 1000 / 1000 500 / 500 300 / 300 Other: Urine Color Yellow Yellow Yellow Urine Appearance Clear Clear Clear Urine Odor Normal Normal Normal Comment void x 1. Voiding Methods Bedside Commode Toilet Toilet Laboratory Results WBC 8.06 k/cumm (4.4-10.8) 02/10/18 06:20 RBC 3.46 m/cumm (4.00-5.20) L 02/10/18 06:20 Hgb 10.1 g/dL (12.0-15.5) L 02/10/18 06:20 Hct 32.3 % (36.0-46.0) L 02/10/18 06:20 MCV 93.4 fL (80-95) 02/10/18 06:20 MCH 29.2 pg (27.0-33.0) 02/10/18 06:20 MCHC 31.3 g/dL (32.0-36.0) L 02/10/18 06:20 RDW 14.4 % (11.7-14.6) 02/10/18 06:20 Plt Count 217 x1000/uL (130-400) 02/10/18 06:20 MPV 10.3 fL (8.0-11.0) 02/10/18 06:20 Sodium 141 mmol/L (136-145) 02/10/18 06:20 Potassium 4.4 mmol/L (3.5-5.1) 02/10/18 06:20 Chloride 107 mmol/L (98-107) 02/10/18 06:20 Carbon Dioxide 24.8 mmol/L (21.0-32.0) 02/10/18 06:20 Anion Gap 9.2 mmol/L (3-11) 02/10/18 06:20 BUN 12 mg/dL (7-18) D 02/10/18 06:20 Creatinine 0.85 mg/dL (0.55-1.02) 02/10/18 06:20 Estimated GFR/1.73 m2 >= 60.00 (mL/min/1.73m2) 02/10/18 06:20 Glucose 156 mg/dL (70-100) H 02/10/18 06:20 Calcium 8.4 mg/dL (8.5-10.1) L 02/10/18 06:20
[2018-02-11] MEDS: Multivitamin w/Minerals TAB 1 TAB PO (08:54)
[2018-02-11] MEDS: FLUoxetine 20 MG CAP PO (08:54)
[2018-02-11] MEDS: Esomeprazole 20 MG CAPCR PO ×2 (08:54→21:42)
[2018-02-11] MEDS: Enoxaparin 30 MG/0.3 ML SYR SC ×2 (08:55→21:43)
[2018-02-11] MEDS: Lisinopril 20 MG TAB PO (08:55)
[2018-02-11] MEDS: Montelukast 10 MG TAB PO (08:55)
[2018-02-11] MEDS: Docusate Sodium 100 MG CAP PO (08:55)
[2018-02-11] MEDS: Fluticasone NASAL SPRAY 16 GM BTL NS (10:05)
--- NOTE | 2018-02-11 10:35 | PHARADMIT ---
Addendum entered by Erick Parks III 02/12/18 11:20: Pharmacy Note Subjective Patient working with PT . Objective VS-OK No Labs Pain: 09/13 No BM yet Assessment No med changes Plan MD has decidd to discharge patient (02/14) with her daughter on Tuesday. Original Note: Admission Pharmacy Clinical Review DAY 3 POST-OP demetria (r) MD rebecca reports patient to have significantly improved and will be ready for discharge tomorrow. VS-OK No Labs No BM yet
--- NOTE | 2018-02-11 10:53 | PTTR_ITS ---
Date of service: 02/11/18 Time of Service: 09:00 PT Notes 02/11/18 S: Stated she is doing very well. Wants to be able to walk on her own in the halls. Feel very safe. O: Performed mobilization of right knee into flexion and extension while in seated position, acheiving 75 flexion and 7 degrees extension. Performed LAQs x 10 reps for 2 sets, ankle pumps x 20 reps, seated marching x 10 reps, seated hip abd/add x 10 reps and assisted SLRs x 10 reps. Ambulated 200ft with FWW with knee immobilizer in place, with SBA, prior to taking a shower. Indicated she was told by Dr. Wellington that she does not have to use CPM. A: Tolerated treatment well with good effort given. Knee flexion was noted to be slightly less than yesterday. Discussed allowing knee to bend when sitting up in chair. P: Continue to work on ROM, ambulation and strengthening of right LE and hip stabilizers. TA x 1, TP x 1, 9:00-9:30 (30 minutes) Cheryle Sanchez, MEDICAL OFFICE PROFESSIONAL INSTRUCTOR
--- NOTE | 2018-02-11 14:27 | PDOC.CMPRO ---
Care Management Progress Note S/O: Teri was sitting up in her chair, dressed in her own clothes when CM met with her. She was pleasant in interaction and reported no concerns at this time. She is looking forward to returning home when her daughter travels up from [place] to stay with her on Tuesday. She remains inpatient today due to ongoing monitoring as she just transitioned to orals today per RN; Deborah. CM will continue to share recommendations for SWB1 for ongoing PT/OT starting tomorrow until coordinated discharge is arranged for Tuesday, per MD. A: 77 year old female admitted to [facility] 02/08/18 for DJD (R) Knee P: Teri will return home with new orders for CHH/PT/OT when ready per MD. Her daughter will arrive on 02/14/18 to stay with Teri until 02/23/18 at which point Teri will transport to [place], [place] to spend the holidays with her family. Teri shares excitement about the upcoming holiday with her family and is motivated for recovery.
--- NOTE | 2018-02-11 14:38 | CMPROGNOTE_ITS ---
Care Management Progress Note S/O: Teri was sitting up in her chair, dressed in her own clothes when CM met with her. She was pleasant in interaction and reported no concerns at this time. She is looking forward to returning home when her daughter travels up from [place] to stay with her on Tuesday. She remains inpatient today due to ongoing monitoring as she just transitioned to orals today per RN; Deborah. CM will continue to share recommendations for SWB1 for ongoing PT/OT starting tomorrow until coordinated discharge is arranged for Tuesday, per MD. A: 77 year old female admitted to [facility] 02/08/18 for DJD (R) Knee P: Teri will return home with new orders for CHH/PT/OT when ready per MD. Her daughter will arrive on 02/14/18 to stay with Teri until 02/23/18 at which point Teri will transport to [place], [place] to spend the holidays with her family. Teri shares excitement about the upcoming holiday with her family and is motivated for recovery.
[2018-02-11] MEDS: Simvastatin 40 MG TAB PO (21:43)
[2018-02-12] VITALS (7 sets, daily range): BP systolic 144–175; BP diastolic 68–97; PULSE 78–87; RESP 16–19; TEMP 36–37.5; O2SAT 93–96
[2018-02-12] MEDS: HYDROcodone 5/Acetaminophen 325 TAB PO ×4 (00:05→21:05)
[2018-02-12] MEDS: Esomeprazole 20 MG CAPCR PO ×2 (07:04→19:28)
[2018-02-12] MEDS: Ibuprofen 600 MG TAB PO ×3 (07:04→19:29)
[2018-02-12] MEDS: Enoxaparin 30 MG/0.3 ML SYR SC ×2 (08:01→19:28)
[2018-02-12] MEDS: Lisinopril 20 MG TAB PO (08:03)
[2018-02-12] MEDS: Montelukast 10 MG TAB PO (08:03)
[2018-02-12] MEDS: Docusate Sodium 100 MG CAP PO ×2 (08:03→19:33)
[2018-02-12] MEDS: Acetaminophen 325 MG TAB 650 MG PO (08:03)
[2018-02-12] MEDS: Multivitamin w/Minerals TAB 1 TAB PO (08:03)
[2018-02-12] MEDS: FLUoxetine 20 MG CAP PO (08:03)
--- NOTE | 2018-02-12 08:09 | W.PM.PROGNOT ---
Date of Service Date of service: 02/12/18 Time of Service: 08:10 Assessment and Plan (1) Arthritis of left knee: Current visit: Yes Status: Acute Generally doing well. Will watch fever curve and consider cxr if cough is not improving. Anticpate discharge home . Subjective Interval history since last seen: Generally feeling well. Does have a sore throat and cough but patient denies wheezing and she does not feel that she is having an exacerbation of her copd which is due to psittacosis. No chest pain, pressure or shortness of breath. Took shower yesterday.Tolerates gettng in and out of bed. Exam Extrem Other: No neurovascular deficits right leg. Does not appear to be toxic or acutely ill.T max 38.0 Objective Objective Clinical Data: Vital Signs Temperature 97.7 F 02/12/18 07:20 Temperature Source Tympanic 02/12/18 07:20 Pulse 87 02/12/18 07:20 Pulse Rhythm Regular 02/12/18 00:10 Respiratory Rate 18 02/12/18 07:20 Respiratory Effort Non-Labored 02/12/18 00:10 Respiratory Depth Normal 02/12/18 00:10 Respiratory Pattern Normal 02/12/18 00:10 Blood Pressure 170/76 H 02/12/18 07:20 Pulse Oximetry 96 02/12/18 07:20 Respiratory End-tidal CO2 35 02/08/18 13:30 Oxygen Delivery Method Room Air 02/12/18 07:20 Oxygen Flow Rate 0 02/12/18 07:20 Pain Level 7 02/12/18 00:05 Comment 02/11/18 15:14 Intake & Output 02/11/18 02/11/18 02/12/18 11:59 23:59 11:59 Intake Total 240 / 240 490 / 490 Output Total 300 / 300 Balance -60 / -60 490 / 490 Intake: Oral 240 / 240 490 / 490 Output: Urine 300 / 300 Other: Urine Color Yellow Yellow Urine Appearance Clear Clear Urine Odor Normal Normal Comment voiding in toilet Voiding Methods Toilet Toilet Laboratory Results WBC 8.06 k/cumm (4.4-10.8) 02/10/18 06:20 RBC 3.46 m/cumm (4.00-5.20) L 02/10/18 06:20 Hgb 10.1 g/dL (12.0-15.5) L 02/10/18 06:20 Hct 32.3 % (36.0-46.0) L 02/10/18 06:20 MCV 93.4 fL (80-95) 02/10/18 06:20 MCH 29.2 pg (27.0-33.0) 02/10/18 06:20 MCHC 31.3 g/dL (32.0-36.0) L 02/10/18 06:20 RDW 14.4 % (11.7-14.6) 02/10/18 06:20 Plt Count 217 x1000/uL (130-400) 02/10/18 06:20 MPV 10.3 fL (8.0-11.0) 02/10/18 06:20 Sodium 141 mmol/L (136-145) 02/10/18 06:20 Potassium 4.4 mmol/L (3.5-5.1) 02/10/18 06:20 Chloride 107 mmol/L (98-107) 02/10/18 06:20 Carbon Dioxide 24.8 mmol/L (21.0-32.0) 02/10/18 06:20 Anion Gap 9.2 mmol/L (3-11) 02/10/18 06:20 BUN 12 mg/dL (7-18) D 02/10/18 06:20 Creatinine 0.85 mg/dL (0.55-1.02) 02/10/18 06:20 Estimated GFR/1.73 m2 >= 60.00 (mL/min/1.73m2) 02/10/18 06:20 Glucose 156 mg/dL (70-100) H 02/10/18 06:20 Calcium 8.4 mg/dL (8.5-10.1) L 02/10/18 06:20
[2018-02-12] MEDS: Fluticasone NASAL SPRAY 16 GM BTL NS (08:25)
--- NOTE | 2018-02-12 08:27 | PDOC.CMPRO ---
Care Management Progress Note S/O: Teri was lying in bed when CM met with her; she described physical progress and appeared happy with her progress. She remains pleasant in interaction and shared no concerns at this time. CM discussed Teri's progress with Dr. Wellington who shared concerns around Teri presenting with fever last night; he reports Teri will require ongoing monitoring prior to discharge readiness. Teri will continue to work with PT on strengthening with no change to overall plan. A: 77 year old female admitted to [facility] 02/08/18 for DJD (R) Knee P: Teri will return home with new orders for CHH/PT/OT when ready per MD. Her daughter will arrive on 02/14/18 to stay with Teri until 02/23/18 at which point Teri will transport to [place], [place] to spend the holidays with her family. Teri shares excitement about the upcoming holiday with her family and is motivated for recovery.
--- NOTE | 2018-02-12 12:19 | PT.INTREAT ---
Date of service: 02/12/18 Time of Service: 08:45 PT Notes 02/12/18 S: Stated she is excited with how well she is doing with her knee rehab. Feeling really good with tolerable pain. O: Performed ambulation WBAT on right with FWW of 300ft x 2, with SBA of one. Independent with bed mobility. Able to perform independent SLR with immobilizer on and off today. Achieved 0 degrees extension to 90 degrees flexion post mobilization. Performed ankle pumps, quad / glut sets, LAQs, seated hip abd / adduction and flexion for 10-20 reps each, as per flow sheet. Ambulation up / down 3- 4 inch steps and 2- 6 inch steps x 1 with handrails and SBA. Did ask to try CPM 0-30 degrees again today, this was taken off by nursing staff. Cryotherapy applied with CPM, as well today. A: Tolerated today's PT session very well with great effort given, very motivated. Reminded patient to be careful not to over due with self exercise. P: Continue to aim for discharge on Tuesday with her daughter. Will focus on increased ambulation and strengthening for improved ADL function, with discharge to her home. TA x 1, TP x 1, 8:45 to 9:20 (35 minutes) Cheryle Sanchez PTA
[2018-02-12] MEDS: Simvastatin 40 MG TAB PO (19:29)
[2018-02-13] MEDS: Ibuprofen 600 MG TAB PO ×4 (01:33→19:46)
[2018-02-13 07:15] VITALS: BP 168/73; PULSE 73; RESP 15; TEMP 36.9; O2SAT 93
--- NOTE | 2018-02-13 07:55 | PGE_ITS ---
Date of Service Date of service: 02/06/18 Time of Service: 07:52 Assessment and Plan (1) Arthritis of left knee: Current visit: Yes Status: Acute S/P right total knee arhtroplasty, slowly improving. Probable discharge tomorrow when family support arrives from [facility]. Subjective Interval history since last seen: Generally doing well. Patient was able to walk 300 feet yesterday and could flex knee 90 degrees and had complete extension. Exam Extrem Other: Mild swelling over left knee. No drainage on bandage. Still alanis sore throat and some hoarseness but improved. Only mildly increased temp last night. Dash dysuria. Objective Objective Clinical Data: Vital Signs Temperature 98.4 F 02/13/18 07:15 Temperature Source Tympanic 02/13/18 07:15 Pulse 73 02/13/18 07:15 Pulse Rhythm Regular 02/13/18 01:35 Respiratory Rate 15 02/13/18 07:15 Respiratory Effort 02/13/18 01:35 Respiratory Depth Normal 02/13/18 01:35 Respiratory Pattern Normal 02/13/18 01:35 Blood Pressure 168/73 H 02/13/18 07:15 Pulse Oximetry 93 L 02/13/18 07:15 Respiratory End-tidal CO2 35 02/08/18 13:30 Oxygen Delivery Method Room Air 02/13/18 07:15 Oxygen Flow Rate 0 02/13/18 07:15 Pain Level 0 02/13/18 06:30 Comment 02/12/18 19:35 Intake & Output 02/12/18 02/12/18 02/13/18 11:59 23:59 11:59 Intake Total 600 / 600 100 / 100 Output Total 400 / 400 Balance 600 / 600 -300 / -300 Intake: Oral 600 / 600 100 / 100 Output: Urine 400 / 400 Other: Urine Color Yellow Urine Appearance Clear Urine Odor Normal Normal Comment pt voided and flushed. pt voided x1 Stool Size Large Stool Characteristics Soft Voiding Methods Toilet Toilet Laboratory Results WBC 8.06 k/cumm (4.4-10.8) 02/10/18 06:20 RBC 3.46 m/cumm (4.00-5.20) L 02/10/18 06:20 Hgb 10.1 g/dL (12.0-15.5) L 02/10/18 06:20 Hct 32.3 % (36.0-46.0) L 02/10/18 06:20 MCV 93.4 fL (80-95) 02/10/18 06:20 MCH 29.2 pg (27.0-33.0) 02/10/18 06:20 MCHC 31.3 g/dL (32.0-36.0) L 02/10/18 06:20 RDW 14.4 % (11.7-14.6) 02/10/18 06:20 Plt Count 217 x1000/uL (130-400) 02/10/18 06:20 MPV 10.3 fL (8.0-11.0) 02/10/18 06:20 Sodium 141 mmol/L (136-145) 02/10/18 06:20 Potassium 4.4 mmol/L (3.5-5.1) 02/10/18 06:20 Chloride 107 mmol/L (98-107) 02/10/18 06:20 Carbon Dioxide 24.8 mmol/L (21.0-32.0) 02/10/18 06:20 Anion Gap 9.2 mmol/L (3-11) 02/10/18 06:20 BUN 12 mg/dL (7-18) D 02/10/18 06:20 Creatinine 0.85 mg/dL (0.55-1.02) 02/10/18 06:20 Estimated GFR/1.73 m2 >= 60.00 (mL/min/1.73m2) 02/10/18 06:20 Glucose 156 mg/dL (70-100) H 02/10/18 06:20 Calcium 8.4 mg/dL (8.5-10.1) L 02/10/18 06:20
[2018-02-13] MEDS: Enoxaparin 30 MG/0.3 ML SYR SC ×2 (08:13→19:46)
[2018-02-13] MEDS: Montelukast 10 MG TAB PO (08:14)
[2018-02-13] MEDS: Lisinopril 20 MG TAB PO (08:14)
[2018-02-13] MEDS: Multivitamin w/Minerals TAB 1 TAB PO (08:14)
[2018-02-13] MEDS: HYDROcodone 5/Acetaminophen 325 TAB PO ×2 (08:14→12:22)
[2018-02-13] MEDS: FLUoxetine 20 MG CAP PO (08:15)
[2018-02-13] MEDS: Esomeprazole 20 MG CAPCR PO ×2 (08:15→19:46)
--- NOTE | 2018-02-13 10:58 | PDOC.CMPRO ---
- If Service Date Differs Date of service: 02/13/18 Time of Service: 10:59 Care Management Progress Note S/O: Teri was sitting in her chair when CM visited this morning. She is engaged in conversation, makes good eye contact, and is talkative. She reports that her pain is well controlled and she is looking forward to returning home tomorrow with both her son and daughter to assist in her recovery. Teri continues to work with PT on strengthening and will likely return home tomorrow, 02/14/18, with home PT/OT. CM will fax referral to [facility] today. A: 77 year old female admitted to [facility] 02/08/18 for DJD (R) Knee P: Teri will return home with new orders for CHH/PT/OT when ready per MD. Her daughter will arrive on 02/14/18 to stay with Teri until 02/23/18 at which point Teri will transport to [place], [place] to spend the holidays with her family. CM will continue to offer support to patient and care team regarding discharge planning and disposition.
--- NOTE | 2018-02-13 11:03 | CMPROGNOTE_ITS ---
- If Service Date Differs Date of service: 02/13/18 Time of Service: 10:59 Care Management Progress Note S/O: Teri was sitting in her chair when CM visited this morning. She is engaged in conversation, makes good eye contact, and is talkative. She reports that her pain is well controlled and she is looking forward to returning home tomorrow with both her son and daughter to assist in her recovery. Teri continues to work with PT on strengthening and will likely return home tomorrow , 02/14/18, with home PT/OT. CM will fax referral to [facility] today. A: 77 year old female admitted to [facility] 02/08/18 for DJD (R) Knee P: Teri will return home with new orders for CHH/PT/OT when ready per MD. Her daughter will arrive on 02/14/18 to stay with Teri until 02/23/18 at which point Teri will transport to [place], [place] to spend the holidays with her family. CM will continue to offer support to patient and care team regarding discharge planning and disposition.
[2018-02-13 11:10] VITALS: BP 141/64; PULSE 91; RESP 20; TEMP 36.9; O2SAT 95
--- NOTE | 2018-02-13 11:39 | PT.INTREAT ---
Date of service: 02/13/18 Time of Service: 11:39 PT Notes Inpatient Physical Therapy Treatment Note Date: 02/13/18 PRECAUTIONS: WABT on R SUBJECTIVE: Gela states that she feels she did well over the weekend with PT. OBJECTIVE: PAIN: Patient c/o R knee pain with active flexion BED MOBILITY/TRANSFERS Sit-stand: I Stand-sit: I GAIT Assistive Device: FWW Weight bearing: WBAT on R Assist: S Distance: 300' Deviation: Step-through THEREX: Patient completed a LE strengthening and stabilization program, as per flow sheet. Patient's AAROM on R knee is 2-87 degrees. Cryocuff to R knee at end of session. STAIRS: Up/down 3x4 and 2x6 using B rails and a step-to pattern with supervision. ASSESSMENT: Patient tolerated session well with minimal c/o R knee pain, with active flexion. Patient would benefit from continued strengthening and mobilization into flexio and extension for improved ROM. PLAN: Continue with PT's POC TREATMENT CODE/TIME: 30 minutes; TA/TP
--- NOTE | 2018-02-13 14:57 | CHAPLAIN ---
Teri was sitting up in her chair, dressed in her own clothes when I visited. She said she expects to be discharged tomorrow and is looking forward to that. Her son is traveling home to spend some time with and her daughter as well. Teri has plans to spend Tez in [place], [place] with a granddaughter. 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 Dami Vazquez has been visiting [place].
--- NOTE | 2018-02-13 15:23 | PT.INTREAT ---
Date of service: 02/13/18 Time of Service: 15:23 PT Notes Inpatient Physical Therapy Treatment Note Date: 02/13/18 PRECAUTIONS: WBAT on R SUBJECTIVE: Gela states that she has been walking around independently. She reports that it makes her knee feel better. OBJECTIVE: PAIN: Patient c/o pain in R knee with knee flexion BED MOBILITY/TRANSFERS Supine-sit: I Sit-supine: I Sit-stand: I Stand-sit: I GAIT Assistive Device: FWW Weight bearing: WBAT on R Assist: S Distance: 300' Deviation: Step-through MANUAL THERAPY: With patient in supine, performed AP/PA glides in loose-packed position, with no discomfort. Mobilized R knee into extension with lights METs for improved ROM. She was able to achieve 0 degrees extension with slight overpressure. With patient seated at EOB, perform mobilization into flexion, with end range discomfort. She was able to achieve 90 degrees of flexion. Ended with AP/PA glides in seated position. ASSESSMENT: Patient tolerated session well with c/o discomfort in R knee with flexion. She demonstrates independence with transfers and bed mobility at this time. PLAN: Continue with PT's POC TREATMENT CODE/TIME: 25 minutes; GT/MT
[2018-02-13 16:13] VITALS: BP 159/71; PULSE 73; RESP 20; TEMP 36.5; O2SAT 95
[2018-02-13] MEDS: Acetaminophen 325 MG TAB 650 MG PO (17:36)
[2018-02-13] MEDS: Simvastatin 40 MG TAB PO (19:47)
[2018-02-13 22:10] VITALS: O2SAT 96
[2018-02-14 00:19] VITALS: BP 166/51; PULSE 78; RESP 18; TEMP 36.9; O2SAT 93
[2018-02-14] MEDS: HYDROcodone 5/Acetaminophen 325 TAB PO ×3 (00:51→08:57)
[2018-02-14] MEDS: Ibuprofen 600 MG TAB PO ×2 (00:52→06:33)
[2018-02-14 04:00] VITALS: BP 180/70; PULSE 78; RESP 18; TEMP 36.6; O2SAT 96
--- NOTE | 2018-02-14 08:06 | DSE_ITS ---
Date of service: 02/14/18 Time of Service: 07:49 DS: Diagnosis Discharge Diagnosis (1) Arthritis of left knee: Status: Acute Discharge Plan Disposition Patient Disposition: HOME W/HOME HEALTH SERVICE Condition: Improving Discharge Details Reason For Visit: DJD (R) KNEE Admit Date/Time: 02/08/18 06:49 Admit Provider: Robb Wellington Attending Provider: Robb Wellington Primary Care Provider: Kingsley Werner [facility] Hospital Course Hospital Course: Patient's postoperative course was unremarkable. She was maintained on prophylactic antibiotics for 24 hours post operatively. Her louie catheter was removed at 24 hours with no evidence of dysuria or urinary tract infection. She did have a productive cough and mildly elevated temperatures at night which resolved with pulmonary toilet.She made rapid progress with physical therapy and by 02/14/18, she was independent getting in and out of bed weight bearing as tolerated on the right with a walker. She could perform a straight leg raise and could flex her right knee to 90 degrees. She was maintained on lovenox prophylaxis 30 mg sub q bid. She will be discharged home on aswpirin 81 mg for the next 2 weeks. Home Meds and New Rx's Prescriptions: No Action calcium carbonate-vitamin D3 [Caltrate with Vitamin D3] 1 EACH tablet 1 ea PO BID RF: 0 esomeprazole magnesium [Nexium] 40 MG capsule,delayed release(DR/EC) 20 mg PO BID Qty: 180 RF: 3 albuterol sulfate [ProAir HFA] 8.5 GM HFA aerosol inhaler 2 puff Inhalation QID PRNQty: 3 RF: 4 lisinopril-hydrochlorothiazide [Zestoretic] 1 EACH tablet 1 tab-cap PO DAILY Qty: 90 RF: 4 simvastatin [Zocor] 40 MG tablet 40 mg PO DAILY Qty: 90 RF: 4 cholecalciferol (vitamin D3) 2,000 UNIT tablet 2,000 unit PO DAILY RF: 0 fluoxetine [Prozac] 20 mg capsule 20 mg PO DAILY Qty: 90 RF: 4 fluticasone [Flonase] 16 GM spray,suspension 2 spry NS DAILY PRNRF: 0 acetaminophen [Mapap Extra Strength] 500 MG tablet 1,000 mg PO PRN PRNRF: 0 montelukast [Singulair] 10 MG tablet 10 mg PO DAILY RF: 0 fluticasone-salmeterol [Advair Diskus] 250-50 mcg/dose Blister With Device 1 puff Inhalation PRN PRNRF: 0 ibuprofen [Advil] 200 mg Tablet 600 mg PO Q6H PRN PRNRF: 0 Discharge Instructions Additional Instructions: Use your new knee. You may place your full weight upon it. Use your walker for balance and to prevent falls. Physical therapy will let you know when it is safe to go to a cane in your left (unoperated side) hand. Home health physical therapy will be checking you at home. However, do your exercises at least twice a day even when physical therapy is not there. You may get your wound wet in the shower with soap and water. Gently pat the teagan dry and leave them open to the air. If you teagan catch on your clothing or you have some drainage from the incision, cover it with a light layer of gauze. Use your elastic stockings during the day. They may be off art night for sleeping. Using baby powder will help to get them on. The elastic stockings help prevent blood clots. Take your regular medications as before. Take norco (hydrocodone 5/325mg) 1-2 every 4-6 hours for moderate pain. Take tylenol, advil or aleve for milder pain, Tylenol may be taken at the same time as advil or at the same time as aleve as they are metabolized differently and are not cross toxic.[facility] restrictions only allow 18 tablets of norco that can be prescribed. Follow-up with Dr. Wellington in 5-7 days for staple removal and review of x-rays of your new knee. Care Plan Goals: Independent function Stand Alone Forms: Nursing Discharge Form Referrals: Robb Wellington MD [ [facility] STAFF PHYSICIAN] - Activity:: Activity as Tolerated Equipment/Supplies:: Walker Diet:: Carb Counting Discharge Orders Discharge Orders: Discharge Order (Routine); Ordered 02/14/18 Ordered By: Robb Wellington DS: Data Vitals/I&O Vitals and I&O: Vital Signs Temperature 97.9 F 02/14/18 04:00 Temperature Source Skin 02/14/18 04:00 Pulse 78 02/14/18 04:00 Pulse Rhythm Regular 02/14/18 00:52 Respiratory Rate 18 02/14/18 04:00 Respiratory Effort 02/14/18 00:52 Respiratory Depth Normal 02/14/18 00:52 Respiratory Pattern Normal 02/14/18 00:52 Blood Pressure 180/70 H 02/14/18 04:00 Pulse Oximetry 96 02/14/18 04:00 Respiratory End-tidal CO2 35 02/08/18 13:30 Oxygen Delivery Method Room Air 02/14/18 04:00 Oxygen Flow Rate 0 02/14/18 04:00 Pain Level 0 02/14/18 06:33 Comment 02/14/18 04:00 Intake & Output 02/13/18 02/13/18 02/14/18 11:59 23:59 11:59 Intake Total 340 / 340 1000 / 1000 150 / 150 Output Total 400 / 400 Balance -60 / -60 1000 / 1000 150 / 150 Intake: IV Oral 340 / 340 990 / 990 150 / 150 Output: Urine 400 / 400 Other: Urine Color Yellow Urine Appearance Clear Clear Clear Urine Odor Normal Stool Size Large Stool Characteristics Soft Voiding Methods Toilet PFSH Family History Mother Diabetes Essential hypertension Depression Heart disease Hyperlipidemia Father No problems noted. Brother Diabetes Essential hypertension Hyperlipidemia Neoplasm Grandfather Diabetes Essential hypertension Grandfather Essential hypertension Heart disease Hyperlipidemia Grandmother Essential hypertension Neoplasm Stroke Grandmother Diabetes Blood disease Neoplasm FAMILY HISTORY Myocardial infarction Son Substance abuse Depression Hyperlipidemia Daughter Diabetes Depression Hyperlipidemia Asthma Medical History Asthma (Chronic) GERD (gastroesophageal reflux disease) (Chronic) Gastroparesis (Chronic) HTN (hypertension) (Chronic) Hypercholesterolemia (Chronic) Osteoarthritis (Chronic) Social History Smoking/Tobacco Use Status: Never alcohol intake: current alcohol intake frequency: holidays/special occasions only Alcohol type: hard liquor substance use type: does not use Surgical History Arthroscopy, Shoulder Biopsy of breast (~2005) Cholecystectomy Extraction of cataract FX ARM (02/15/14) Hysterectomy, Laproscopic Social History Smoking/Tobacco Use Status: Never alcohol intake: current alcohol intake frequency: holidays/special occasions only Alcohol type: hard liquor substance use type: does not use
--- NOTE | 2018-02-14 08:39 | PDOC.HHF2F ---
1. Encounter Date and Reason I certify that SHANTAL TA was seen by Robb Wellington on 02/14/18 and that I had a [id number] encounter with this patient that meets the physician face to face encounter requirements. 2. Clinical Findings Supporting Skilled Need and Homebound Status I certify that home health services are medically necessary, include either intermittent chcf and/or physical/speech therapy, and that this patient is homebound in that absences from the home require considerable and taxing effort and are infrequent or of short duration, or are attributable to the need to receive medical care. [X] (a) Attached documentation from encounter provides clinical findings supporting skilled need and homebound status (including what assistance patient requires to leave the home). The encounter with the patient was in whole, or in part, for the following medical condition, which is the primary reason for home health care: DJD (R) KNEE Halfway: Physical Therapy Speech Therapy: Homebound: 3. Certification and Authentication I certify that I composed the above information based on my clinical judgement relating to this patient's medical condition and, if applicable, clinical findings communicated to me by the NPP or inpatient physician who performed the Home Health Referral. All further orders will be obtained through (Community Based Physician - PCP)
[2018-02-14] MEDS: Enoxaparin 30 MG/0.3 ML SYR SC (08:56)
[2018-02-14] MEDS: Montelukast 10 MG TAB PO (08:57)
[2018-02-14] MEDS: FLUoxetine 20 MG CAP PO (08:58)
[2018-02-14] MEDS: Lisinopril 20 MG TAB PO (08:58)
[2018-02-14] MEDS: Multivitamin w/Minerals TAB 1 TAB PO (08:58)
[2018-02-14] MEDS: Esomeprazole 20 MG CAPCR PO (08:58)
[2018-02-14 09:05] VITALS: O2SAT 95
--- NOTE | 2018-02-14 09:17 | PT.INDS ---
Date of service: 02/14/18 Time of Service: 09:17 PT Notes Inpatient Physical Therapy Discharge Summary Date: 02/14/18 Dates of Service:02/09/18-02/13/18 SUBJECTIVE: NT OBJECTIVE: 02/09/18-02/13/18 Bed Mobility/Transfers: *Knee immobilizer for all transfers Supine to sit:independent Sit-supine: independent Sit-stand: independent Stand-sit: independent Gait: supervision with FWW 300ft WBAT R LE Stairs: up/down 5 steps wtih railings, supervision Therex: Patient has home exercise program for TKA Balance: Static Sitting: Normal Dynamic Sitting: Normal Static Standing: Fair Dynamic Standing: Fair Assessment: Patient is a 77 year old female referred to physical therapy services with the diagnosis of status post right total knee arthroplasty by Dr. Wellington 02/08/2018 in setting of open reduction internal fixation right humerus, chronic back pain, right lateral meniscectomy, osteoarthritis, asthma. Pt was seen for 8 PT visits. Progressed from CGA standing transfers to independent, from CGA gait with FWW 50ftx2 to supervision gait with FWW 300ft, able to ascend/descend 5 steps with railing supervision. AAROM R knee -2 to 87 degrees. Pt is discharged to home setting today, FWW is recommended at discharge to gait stability post operatively. Goals: Goals X1 week 1. Supine-Sit: Independent 2. Sit-Supine: Independent 3. Sit-Stand: Supervision with FWW 4. Stand-Sit: Independent 5. Bed-Chair: Supervision with FWW 6. Chair-Bed: Supervision with FWW 7. Gait: SBA with FW W1 100 feet x2, WBAT RLE 8. Stairs: TBD 9. Independent with home exercise program for TKA Pt met goals # 1, 2, 3, 4, 7, 9 DISCHARGE RECOMMENDATIONS: Home with FWW and home or outpatient PT G Codes in the area mobility of walking and moving around: projected status GP [id number]. Discharge status (if discharging) GP [id number] Rosana Evangelista PT
--- NOTE | 2018-02-14 09:22 | INDS_ITS ---
Date of service: 02/14/18 Time of Service: 09:17 PT Notes Inpatient Physical Therapy Discharge Summary Date: 02/14/18 Dates of Service:02/09/18-02/13/18 SUBJECTIVE: NT OBJECTIVE: 02/09/18-02/13/18 Bed Mobility/Transfers: *Knee immobilizer for all transfers Supine to sit:independent Sit-supine: independent Sit-stand: independent Stand-sit: independent Gait: supervision with FWW 300ft WBAT R LE Stairs: up/down 5 steps wtih railings, supervision Therex: Patient has home exercise program for TKA Balance: Static Sitting: Normal Dynamic Sitting: Normal Static Standing: Fair Dynamic Standing: Fair Assessment: Patient is a 77 year old female referred to physical therapy services with the diagnosis of status post right total knee arthroplasty by Dr. Wellington 02/08/2018 in setting of open reduction internal fixation right humerus , chronic back pain, right lateral meniscectomy, osteoarthritis, asthma. Pt was seen for 8 PT visits. Progressed from CGA standing transfers to independent, from CGA gait with FWW 50ftx2 to supervision gait with FWW 300ft, able to ascend/descend 5 steps with railing supervision. AAROM R knee -2 to 87 degrees. Pt is discharged to home setting today, FWW is recommended at discharge to gait stability post operatively. Goals: Goals X1 week 1. Supine-Sit: Independent 2. Sit-Supine: Independent 3. Sit-Stand: Supervision with FWW 4. Stand-Sit: Independent 5. Bed-Chair: Supervision with FWW 6. Chair-Bed: Supervision with FWW 7. Gait: SBA with FW W1 100 feet x2, WBAT RLE 8. Stairs: TBD 9. Independent with home exercise program for TKA Pt met goals # 1, 2, 3, 4, 7, 9 DISCHARGE RECOMMENDATIONS: Home with FWW and home or outpatient PT G Codes in the area mobility of walking and moving around: projected status GP [id number]. Discharge status (if discharging) GP [id number] Rosana Evangelista PT
[2018-02-14 09:58] VITALS: BP 187/49; PULSE 88; RESP 18; TEMP 36.7; O2SAT 95
--- NOTE | 2018-02-14 10:10 | HHF2F_ITS ---
1. Encounter Date and Reason I certify that SHANTAL TA was seen by Robb Wellington on 02/14/18 and that I had a [id number] encounter with this patient that meets the physician face to face encounter requirements. 2. Clinical Findings Supporting Skilled Need and Homebound Status I certify that home health services are medically necessary, include either intermittent care home and/or physical/speech therapy, and that this patient is homebound in that absences from the home require considerable and taxing effort and are infrequent or of short duration, or are attributable to the need to receive medical care. [X] (a) Attached documentation from encounter provides clinical findings supporting skilled need and homebound status (including what assistance patient requires to leave the home). The encounter with the patient was in whole, or in part, for the following medical condition, which is the primary reason for home health care: DJD (R) KNEE Retirement: Physical Therapy Speech Therapy: Homebound: 3. Certification and Authentication I certify that I composed the above information based on my clinical judgement relating to this patient's medical condition and, if applicable, clinical findings communicated to me by the NPP or inpatient physician who performed the Home Health Referral. All further orders will be obtained through (Community Based Physician - PCP)
[2018-02-14] MEDS: Fluticasone NASAL SPRAY 16 GM BTL NS (10:12)
[2018-02-14] MEDS: Ondansetron O.D.T. 4 MG TABEF PO (10:12)
[2018-02-14 11:25] VITALS: BP 114/69; PULSE 74; RESP 17; TEMP 36.7; O2SAT 95
--- NOTE | 2018-02-14 13:10 | PDOC.CMDIS ---
Care Management Discharge Reason for Hospitalization: DJD (R) Knee.
--- NOTE | 2018-02-14 15:36 | PDOC.CMDIS ---
- If Service Date Differs Date of service: 02/14/18 Time of Service: 15:36 LACE Index Scoring Tool - Questions: Length of Stay (in days): 7 - 13 Acuity (Admit via E.D.?): No Comorbidities: Diabetes w/o Complication E.D. Visits: 4 - Answers: Total Score: 10 Risk of Readmission: High Risk Care Management Discharge Reason for Hospitalization: DJD (R) Knee. Discharge Plan: Teri will discharge home when medically ready per MD. Anticipate patient will discharge with [facility] services (PT/OT) and follow up with surgical services. Teri will transport via private vehicle with her daughter, Daily. Patient/Family Education Needs: Discharge education, any limitations and follow up plan of care. Ask Me Three discussion. Services Needed at Discharge: Home Health Care Services ([facility] (PT/OT). )
--- NOTE | 2018-02-14 15:39 | CMDISCH_ITS ---
- If Service Date Differs Date of service: 02/14/18 Time of Service: 15:36 LACE Index Scoring Tool - Questions: Length of Stay (in days): 7 - 13 Acuity (Admit via E.D.?): No Comorbidities: Diabetes w/o Complication E.D. Visits: 4 - Answers: Total Score: 10 Risk of Readmission: High Risk Care Management Discharge Reason for Hospitalization: DJD (R) Knee. Discharge Plan: Teri will discharge home when medically ready per MD. Anticipate patient will discharge with [facility] services (PT/OT) and follow up with surgical services. Teri will transport via private vehicle with her daughter, Daily. Patient/Family Education Needs: Discharge education, any limitations and follow up plan of care. Ask Me Three discussion. Services Needed at Discharge: Home Health Care Services ([facility] (PT/OT). )
== END 2018-02-14 12:35 | disposition home health service (06) | DRG 470 ==
LOC: PDS 11:34 → MS 12:41
PROVIDERS: Admitting Provider Orthopaedic Surgery; PCP Family Medicine; Visit Provider Orthopaedic Surgery
PROC: 0SRC0J9 Replacement of Right Knee Joint with Synthetic Substitute, Cemented, Open Approach (ICD-10-PCS; CPT 27447; principal; 2018-02-08 08:30)
DX: M17.11 Unilateral primary osteoarthritis, right knee (principal); Z96.651 Presence of right artificial knee joint; J44.9 Chronic obstructive pulmonary disease, unspecified; R09.02 Hypoxemia; Z87.09 Personal history of other diseases of the respiratory system; I10 Essential (primary) hypertension; K21.9 Gastro-esophageal reflux disease without esophagitis
CPT/HCPCS: 27447; 36415; 76942; 80048; 85027; 97110; 97116; 97140; 97162; 97530; NC; 73560; J0360; J0690; J1100; J1650; J1885; J2250; J2270; J2405; J3010; L1830

== ENCOUNTER → 2018-02-21 10:33 | Outpatient (BNVA) | payer MEDICARE, SELFPAY | PROVIDERS: PCP Family Medicine; Referring Provider Family Medicine; Visit Provider Orthopaedic Surgery | DX: Z47.1 Aftercare following joint replacement surgery (principal); Z96.651 Presence of right artificial knee joint; I10 Essential (primary) hypertension; M25.561 Pain in right knee ==

== ENCOUNTER → 2018-03-14 10:34 | Outpatient (BNVA) | payer MEDICARE, SELFPAY | PROVIDERS: PCP Family Medicine; Referring Provider Family Medicine; Visit Provider Orthopaedic Surgery | DX: Z47.1 Aftercare following joint replacement surgery (principal); Z96.651 Presence of right artificial knee joint ==

== ENCOUNTER → 2018-04-10 10:13 | Outpatient (BNVA) | payer MEDICARE, SELFPAY | PROVIDERS: PCP Family Medicine; Referring Provider Family Medicine; Visit Provider Nurse Practitioner Gerontology | DX: N39.0 Urinary tract infection, site not specified (principal); R33.9 Retention of urine, unspecified | CPT/HCPCS: 51798; 81003; 99204; 99215 ==

== ENCOUNTER 2018-04-10 13:53 | Outpatient (REF) | payer MEDICARE, SELFPAY | END 2018-04-10 14:13 | LOC: LBN 13:53 | PROVIDERS: PCP Family Medicine; Visit Provider Nurse Practitioner Gerontology | DX: N39.0 Urinary tract infection, site not specified (principal) | CPT/HCPCS: 87077; 87086; 87186 ==

== ENCOUNTER 2018-04-16 13:25 | Emergency (ER) | payer MEDICARE, SELFPAY ==
[2018-04-16 13:37] VITALS: BP 128/68; PULSE 99; RESP 20; TEMP 36.8; O2SAT 96
[2018-04-16 13:41] VITALS: RESP 18
--- NOTE | 2018-04-16 13:44 | DI.RAD_ITS ---
SYMPTOMS/DIAGNOSIS: DIZZINESS CHEST X-RAY, FRONTAL AND LATERAL VIEWS: Comparison is 04/19/17. The heart size and pulmonary vasculature are within normal limits. The lungs are clear. No effusions or pneumothoraces are identified. There are again seen plates and screws in the proximal humeri bilaterally. Surgical clips are again seen in the right upper quadrant of the abdomen, likely from prior cholecystectomy. IMPRESSION: No acute pulmonary process.
[2018-04-16 14:29] LABS: Abs Immature Grans 0.02 k/cumm (0.0-0.09); Absolute Basophil Count 0.02 k/cumm (0.0-0.2); Absolute Eosinophil Count 0.23 k/cumm (0.0-0.7); Absolute Lymphocyte Count 1.91 k/cumm (1.2-3.4); Absolute Monocyte Count 0.79 k/cumm (0.11-0.7); Basophils % 0.3; Eosinophils % 3.6; HCT 39.4 % (36.0-46.0); HGB 13.2 g/dL (12.0-15.5); Immature Grans % 0.3; Mean Corp. HGB Concentration 33.5 g/dL (32.0-36.0); Mean Corpuscular Hemoglobin 29.3 pg (27.0-33.0); Mean Corpuscular Volume 87.6 fL (80-95); Mean Platelet Volume 10.4 fL (8.0-11.0); Monocytes % 12.4; Neutrophils % 53.4; Platelet Count 208 x1000/uL (130-400); RBC Distribution Width 13.9 % (11.7-14.6); White Blood Cell Count 6.37 k/cumm (4.4-10.8)
[2018-04-16 14:37] LABS: Bilirubin Negative (Negative); Blood Negative (Negative); Clarity Clear; Glucose Negative (Negative); Ketones Trace mg/dL (Negative); Leukocyte Esterase Negative (Negative); Nitrite Negative (Negative); Specific Gravity 1.025 (1.005-1.025); Urobilinogen 0.2 EU/dL (Up TO 0.2)
[2018-04-16] MEDS: Normal Saline 1,000 ML 150 ML IV (14:40)
[2018-04-16 14:49] LABS: Bacteria Few HPF (Negative); C & S Indicated? No; Casts 5-10 Hyaline LPF (Negative); Crystals Negative HPF (Negative); Epithelial Cells Few HPF (Negative); Mucus Trace (Negative); Other Cells Rare Renal (Negative); RBC Negative (0-2)
[2018-04-16 14:50] LABS: ALT 28 U/L (12-78); AST 21 U/L (15-37); Albumin 3.8 g/dL (3.4-5.0); Alkaline Phosphatase 65 U/L (46-116); Anion Gap 8.4 mmol/L (3-11); BUN 23 mg/dL (7-18); Bilirubin, Total 0.7 mg/dL (0.2-1.0); CO2 27.6 mmol/L (21.0-32.0); Calcium 8.9 mg/dL (8.5-10.1); Chloride 103 mmol/L (98-107); Glucose 112 mg/dL (70-100); Magnesium 1.7 mg/dL (1.8-2.4); Potassium 3.9 mmol/L (3.5-5.1); Sodium 139 mmol/L (136-145); TSH (W/Ref FT4) 1.49 uIU/mL (0.358-3.74); Total Protein 7.5 g/dL (6.4-8.2); Troponin I < 0.02 ng/mL (0.00-0.06)
--- NOTE | 2018-04-16 15:33 | DI.VRAD_ITS ---
EXAM: XR Chest, 2 Views EXAM DATE/TIME: 04/16/2018 1:46 PM CLINICAL HISTORY: 77 years old, female; Signs and symptoms; Other: Dizzness TECHNIQUE: XR of the chest, 2 views. COMPARISON: CR CHEST 2 VIEWS PA,LAT 04/19/2017 3:28 PM FINDINGS: Lungs: Unremarkable. No consolidation. Pleural space: Unremarkable. No pleural effusion. No pneumothorax. Heart/Mediastinum: Unremarkable. No cardiomegaly. Bones/joints: Unremarkable. IMPRESSION: No acute findings. Dictated and Authenticated by: Tootie Botello MD. Ordering:CHIARA Carlin MD
--- NOTE | 2018-04-16 15:40 | ED.GENADUL_ITS ---
Discharge Plan Disposition Patient Disposition: HOME Condition: Stable Discharge Details Chief Complaint: GenMedical Clinical Impression: Dizziness, nonspecific Primary Care Provider: Kingsley Werner ED Provider: Tesfaye Vernon Home Meds and New Rx's Prescriptions: Continued ciprofloxacin HCl [Cipro] 250 mg tablet 250 mg PO BID Qty: 14 RF: 0 calcium carbonate-vitamin D3 [Caltrate with Vitamin D3] 1 EACH tablet 1 ea PO BID RF: 0 esomeprazole magnesium [Nexium] 40 MG capsule,delayed release(DR/EC) 20 mg PO BID Qty: 180 RF: 3 ProAir HFA 8.5 GM HFA aerosol inhaler 2 puff Inhalation QID PRNQty: 3 RF: 4 lisinopril-hydrochlorothiazide [Zestoretic] 1 EACH tablet 1 tab-cap PO DAILY Qty: 90 RF: 4 simvastatin [Zocor] 40 MG tablet 40 mg PO DAILY Qty: 90 RF: 4 cholecalciferol (vitamin D3) 2,000 UNIT tablet 2,000 unit PO DAILY RF: 0 fluoxetine [Prozac] 20 mg capsule 20 mg PO DAILY Qty: 90 RF: 4 fluticasone [Flonase] 16 GM spray,suspension 2 spry NS DAILY PRNRF: 0 acetaminophen [Mapap Extra Strength] 500 MG tablet 1,000 mg PO PRN PRNRF: 0 montelukast [Singulair] 10 MG tablet 10 mg PO DAILY RF: 0 Advair Diskus 250-50 mcg/dose Blister With Device 1 puff Inhalation PRN PRNRF: 0 ibuprofen [Advil] 200 mg Tablet 600 mg PO Q6H PRN PRNRF: 0 Discharge Instructions Instructions: Dizziness (ED) Additional Instructions: Feel free to return to the emergency department for any new or worsening symptoms otherwise you should follow-up with your primary care provider for reassessment. As discussed in emergency visit you should review your medications with him including her simvastatin to see if this may be causing some of your symptoms. Otherwise stay well-hydrated and get plenty of rest Referrals: Kingsley Werner MD [Primary Care Provider] - Discharge Data Discharge Date/Time-TO BE ENTERED AT DEPARTURE: 04/16/18 16:16 Medical Decision Making Nonspecific dizziness and intermittent weakness the patient states is been going on for greater than 6 months. Patient denies any new change to symptoms but just states persistence which she wanted to have evaluated. Patient denies any current pain or discomfort. Physical exam is unremarkable, neurological exam shows no signs of stroke/CVA, regular cardiac and respiratory exam, no focal weakness noted. Patient is ambulatory without assistance and good strength. Plan to check labs, EKG, chest x-ray for workup of dizziness. Patient is as ymptomatic at this time so I do not see any emergent interventions that are needed or required at this time. After review of labs which are nondiagnostic with a slightly low magnesium level there are no other acute findings. Patient reassessed and continues to remain asymptomatic. Given this I feel the patient is able to be safely followed up on an outpatient basis. Return precautions were discussed. After discussion of diagnosis and plan of care patient has no further needs, questions, or concerns and states clear understanding to return to the emergency department for any worsening symptoms. Lab Data Lab results reviewed: Yes I reviewed the patient's lab results. ECG Data Interpretation: EKG shows rate of 91, sinus rhythm, right bundle branch block. Right bundle branch block has been present since greater than 2017 so no acute change. HPI General Mode of arrival: ambulatory . Date/Time Provider Initiated Documentation: 04/16/18 13:41 . Limitations to Documentation: no limitations . Information obtained by: patient and RN notes reviewed . History of Present Illness 77 year old F presents to the emergency department with the chief complaint of Intermittent weakness, Quality is described as other (Denies pain), Patient started experiencing this week(s) (3) and it has been intermittent and now resolved. No relieving factors improve symptom(s), No exacerbating factors reported . Patient did receive the following treatments prior to arrival, none Related Data Home Medications Medication Instructions Recorded Confirmed calcium carbonate-vitamin D3 1 ea PO BID tab 08/23/12 04/16/18 [Caltrate with Vitamin D3] esomeprazole magnesium [Nexium] 20 mg PO BID #180 tab-cap 08/31/12 04/16/18 fluticasone [Flonase] 2 spry NS DAILY PRN 06/07/13 04/16/18 ProAir HFA 2 puff INHALATION QID PRN #3 ea 03/21/17 04/16/18 lisinopril-hydrochlorothiazide 1 tab-cap PO DAILY #90 tab-cap 04/28/17 04/16/18 [Zestoretic] simvastatin [Zocor] 40 mg PO DAILY #90 tab-cap 04/28/17 04/16/18 cholecalciferol (vitamin D3) 2,000 unit PO DAILY 07/18/17 04/16/18 acetaminophen [Mapap Extra 1,000 mg PO PRN PRN 08/24/17 04/16/18 Strength] montelukast [Singulair] 10 mg PO DAILY 12/06/17 04/16/18 Advair Diskus 1 puff INHALATION PRN PRN 12/09/17 04/16/18 fluoxetine 20 mg capsule 20 mg PO DAILY #90 cap 01/02/18 04/16/18 ibuprofen [Advil] 600 mg PO Q6H PRN PRN 01/31/18 04/16/18 ciprofloxacin 250 mg tablet 250 mg PO BID #14 tab 04/10/18 04/16/18 Previous Rx's Medication Instructions Recorded lisinopril-hydrochlorothiazide 1 tab-cap PO DAILY #90 tab-cap 04/28/17 [Zestoretic] simvastatin [Zocor] 40 mg PO DAILY #90 tab-cap 04/28/17 fluoxetine 20 mg capsule 20 mg PO DAILY #90 cap 01/02/18 ciprofloxacin 250 mg tablet 250 mg PO BID #14 tab 04/10/18 Allergies Allergy/AdvReac Type Severity Reaction Status Date / Time adhesive Allergy Severe SKIN RASH Verified 04/16/18 13:41 Sulfa (Sulfonamide Allergy Intermediate ITCHING Verified 04/16/18 13:41 Antibiotics) losartan Allergy Unknown SWELLING, Verified 04/16/18 13:41 ITCHING hydrocodone AdvReac Itching Verified 04/16/18 13:41 with high doses General Stated Complaint: GenMedical CLAUDIA: 3 Review of Systems Constitutional Denies body ache(s), Denies chills, Denies fever(s) and Denies headache(s) ENT Denies vertigo, Reports dizziness, Denies ear discharge, Denies otalgia, Denies headache(s) and Denies hearing loss Cardiovascular Denies chest pain, Denies diaphoresis, Denies syncope, Denies rapid heart rate, Denies irregular heart rhythm and Denies dyspnea Respiratory Denies dyspnea Gastrointestinal Denies abdominal pain, Denies nausea and Denies vomiting Integumentary/Breasts Denies rash Neurologic Denies confusion, Denies vertigo, Reports dizziness, Denies syncope, Denies headache(s), Denies focal weakness and Denies sensory deficit Psychiatric Denies confusion [facility] Medical History Asthma (Chronic) GERD (gastroesophageal reflux disease) (Chronic) Gastroparesis (Chronic) HTN (hypertension) (Chronic) Hypercholesterolemia (Chronic) Osteoarthritis (Chronic) Surgical History Arthroscopy, Shoulder Biopsy of breast (~2005) Cholecystectomy Extraction of cataract FX ARM (02/15/14) Hysterectomy, Laproscopic Family History Mother Diabetes Essential hypertension Depression Heart disease Hyperlipidemia Father No problems noted. Brother Diabetes Essential hypertension Hyperlipidemia Neoplasm Grandfather Diabetes Essential hypertension Grandfather Essential hypertension Heart disease Hyperlipidemia Grandmother Essential hypertension Neoplasm Stroke Grandmother Diabetes Blood disease Neoplasm FAMILY HISTORY Myocardial infarction Son Substance abuse Depression Hyperlipidemia Daughter Diabetes Depression Hyperlipidemia Asthma Social History Smoking and Tabacco status: Never alcohol intake: current alcohol intake frequency: holidays/special occasions only Alcohol type: hard liquor substance use type: does not use Exam Const General: cooperative, no acute distress and not ill appearing Orientation: alert, awake and oriented x3 HENMT Head: normal to inspection, normocephalic and atraumatic Ears: hearing grossly normal bilaterally, external ears normal and TM's normal bilaterally Mouth: moist mucous membranes Eyes General: appearance normal, both eyes and all related structures Visual Jiang: normal visual jiang by confrontation Alignment and Position: alignment normal Periorbital: periorbital findings normal Eyelids: eyelids normal Conjunctivae: conjunctivae normal Sclera: sclerae normal Pupils: PERRL EOM: EOM intact bilaterally and No nystagmus Resp Effort & Inspection: normal respiratory effort, able to speak in complete sentences and no respiratory distress Cardio Rate: regular rate Rhythm: regular rhythm Skin General skin exam: no rashes or lesions noted Neuro General: alert, awake, oriented x3, gait normal, moves all extremities, no focal motor deficits, CN's II-XI intact bilaterally and not confused Cranial Nerves: no nystagmus Cognition: normal cognition Speech: speech normal Gait: normal gait Motor: muscle tone normal throughout, strength 5/5 throughout, no pronator drift, no movement abnormalities noted, no fasciculations and No asterixis Sensory Exam: no sensory deficits noted Coordination: [id number] test normal, Romberg test normal, rapid alternating movement UE normal and rapid alternating movement LE normal Course Vital Signs Temperature 36.8 C 04/16/18 13:37 Pulse 99 H 04/16/18 13:37 Respiratory Rate 20 04/16/18 13:37 Blood Pressure 128/68 04/16/18 13:37 Pulse Oximetry 96 04/16/18 13:37 Temperature 36.8 C 04/16/18 13:37 Temperature Source Temporal Artery Scan 04/16/18 13:37 Pulse 99 H 04/16/18 13:37 Respiratory Rate 18 04/16/18 13:41 Respiratory Effort Non-Labored 04/16/18 13:41 Respiratory Depth Normal 04/16/18 13:41 Respiratory Pattern Normal 04/16/18 13:41 Blood Pressure 128/68 04/16/18 13:37 Blood Pressure Position Sitting 04/16/18 13:37 Pulse Oximetry 96 04/16/18 13:37 Oxygen Delivery Method Room Air 04/16/18 13:37 Oxygen Flow Rate 0 04/16/18 13:37 Pain Level 0 04/16/18 13:37 Lab/Test Results Lab/Test Results: Laboratory Tests Range/Units 04/16/18 04/16/18 04/16/18 14:24 14:24 14:24 WBC (4.4-10.8) k/cumm 6.37 RBC (4.00-5.20) m/cumm 4.50 Hgb (12.0-15.5) g/dL 13.2 Hct (36.0-46.0) % 39.4 MCV (80-95) fL 87.6 MCH (27.0-33.0) pg 29.3 MCHC (32.0-36.0) g/dL 33.5 RDW (11.7-14.6) % 13.9 Plt Count (130-400) x1000/uL 208 MPV (8.0-11.0) fL 10.4 Immature Gran % 0.3 Neutrophils % 53.4 Lymphocytes % 30.0 Monocytes % 12.4 Eosinophils % 3.6 Basophils % 0.3 Absolute Neutrophils (1.2-6.7) k/cumm 3.40 Absolute Lymphocytes (1.2-3.4) k/cumm 1.91 Absolute Monocytes (0.11-0.7) k/cumm 0.79 H Absolute Eosinophils (0.0-0.7) k/cumm 0.23 Absolute Basophils (0.0-0.2) k/cumm 0.02 Sodium (136-145) mmol/L 139 Potassium (3.5-5.1) mmol/L 3.9 Chloride (98-107) mmol/L 103 Carbon Dioxide (21.0-32.0) mmol/L 27.6 Anion Gap (3-11) mmol/L 8.4 BUN (7-18) mg/dL 23 H Creatinine (0.55-1.02) mg/dL 0.90 Estimated GFR/1.73 m2 (mL/min/1.73m2) >= 60.00 Glucose (70-100) mg/dL 112 H Calcium (8.5-10.1) mg/dL 8.9 Magnesium (1.8-2.4) mg/dL 1.7 L Total Bilirubin (0.2-1.0) mg/dL 0.7 AST (15-37) U/L 21 ALT (12-78) U/L 28 Alkaline Phosphatase (46-116) U/L 65 Troponin I (0.00-0.06) ng/mL < 0.02 Total Protein (6.4-8.2) g/dL 7.5 Albumin (3.4-5.0) g/dL 3.8 TSH (0.358-3.74) uIU/mL 1.49 Cancelled Urine Color (Yellow) Urine Clarity Urine pH (5-8) Ur Specific [place] (1.005-1.025) Urine Protein (Negative) mg/dL Urine Ketones (Negative) mg/dL Urine Blood (Negative) Urine Nitrite (Negative) Urine Bilirubin (Negative) Urine Urobilinogen (Up TO 0.2) EU/dL Ur Leukocyte Esterase (Negative) Urine RBC (0-2) Urine WBC (0-5) HPF Ur Epithelial Cells (Negative) HPF Urine Crystals (Negative) HPF Urine Bacteria (Negative) HPF Urine Casts (Negative) LPF Urine Mucus (Negative) Urine Other (Negative) Ur Culture Indicated? Urine Glucose (Negative) mg/dL Range/Units 04/16/18 14:30 WBC (4.4-10.8) k/cumm RBC (4.00-5.20) m/cumm Hgb (12.0-15.5) g/dL Hct (36.0-46.0) % MCV (80-95) fL MCH (27.0-33.0) pg MCHC (32.0-36.0) g/dL RDW (11.7-14.6) % Plt Count (130-400) x1000/uL MPV (8.0-11.0) fL Immature Gran % Neutrophils % Lymphocytes % Monocytes % Eosinophils % Basophils % Absolute Neutrophils (1.2-6.7) k/cumm Absolute Lymphocytes (1.2-3.4) k/cumm Absolute Monocytes (0.11-0.7) k/cumm Absolute Eosinophils (0.0-0.7) k/cumm Absolute Basophils (0.0-0.2) k/cumm Sodium (136-145) mmol/L Potassium (3.5-5.1) mmol/L Chloride (98-107) mmol/L Carbon Dioxide (21.0-32.0) mmol/L Anion Gap (3-11) mmol/L BUN (7-18) mg/dL Creatinine (0.55-1.02) mg/dL Estimated GFR/1.73 m2 (mL/min/1.73m2) Glucose (70-100) mg/dL Calcium (8.5-10.1) mg/dL Magnesium (1.8-2.4) mg/dL Total Bilirubin (0.2-1.0) mg/dL AST (15-37) U/L ALT (12-78) U/L Alkaline Phosphatase (46-116) U/L Troponin I (0.00-0.06) ng/mL Total Protein (6.4-8.2) g/dL Albumin (3.4-5.0) g/dL TSH (0.358-3.74) uIU/mL Urine Color (Yellow) Yellow Urine Clarity Clear Urine pH (5-8) 7.0 Ur Specific [place] (1.005-1.025) 1.025 Urine Protein (Negative) mg/dL 30 H Urine Ketones (Negative) mg/dL Trace H Urine Blood (Negative) Negative Urine Nitrite (Negative) Negative Urine Bilirubin (Negative) Negative Urine Urobilinogen (Up TO 0.2) EU/dL 0.2 Ur Leukocyte Esterase (Negative) Negative Urine RBC (0-2) Negative Urine WBC (0-5) HPF 3-5 Ur Epithelial Cells (Negative) HPF Few Urine Crystals (Negative) HPF Negative Urine Bacteria (Negative) HPF Few Urine Casts (Negative) LPF 5-10 hyaline Urine Mucus (Negative) Trace Urine Other (Negative) Rare renal Ur Culture Indicated? No Urine Glucose (Negative) mg/dL Negative
[2018-04-16 16:15] VITALS: BP 130/62; PULSE 99; RESP 16; TEMP 36.8; O2SAT 96
== END 2018-04-16 16:16 | disposition home or self-care (01) ==
PROVIDERS: Emergency Provider Nurse Practitioner Family; PCP Family Medicine
DX: R42 Dizziness and giddiness (principal); I45.10 Unspecified right bundle-branch block
CPT/HCPCS: 36415; 80053; 93005; 96360; 96361; 99285; 71046; 81003; 81015; 83735; 84443; 84484; 85025; 93010

== ENCOUNTER 2018-04-28 13:54 | Outpatient (CLI) | payer MEDICARE, SELFPAY ==
[2018-04-28 14:41] LABS: Hemoglobin A1C 6.4 % (4.5-6.2)
[2018-04-28 14:44] LABS: Bilirubin Small (Negative); Blood Negative (Negative); Clarity Clear; Glucose Negative (Negative); Ketones Trace mg/dL (Negative); Leukocyte Esterase Trace (Negative); Nitrite Negative (Negative); Urobilinogen 0.2 EU/dL (Up TO 0.2)
[2018-04-28 15:28] LABS: Epithelial Cells Negative HPF (Negative); RBC 0-2 (0-2)
[2018-04-28 15:29] LABS: Bacteria Moderate HPF (Negative); Crystals Rare Calcium Oxalate HPF (Negative); Mucus Heavy (Negative)
[2018-04-28 15:30] LABS: C & S Indicated? Yes
== END 2018-04-28 14:14 ==
PROVIDERS: PCP Family Medicine; Visit Provider Family Medicine
DX: R73.01 Impaired fasting glucose (principal); R10.9 Unspecified abdominal pain; R33.9 Retention of urine, unspecified
CPT/HCPCS: 36415; 81003; 81015; 83036; 87086

== ENCOUNTER 2018-05-22 12:46 | Outpatient (CLI) | payer MEDICARE, SELFPAY ==
[2018-05-22 13:46] LABS: Bacteria Few HPF (Negative); C & S Indicated? No; Casts 5-10 Hyaline LPF (Negative); Crystals Negative HPF (Negative); Epithelial Cells Rare HPF (Negative); Mucus Trace (Negative); Other Cells Rare Renal (Negative); RBC Negative (0-2); WBC 0-2 HPF (0-5)
== END 2018-05-22 13:06 ==
PROVIDERS: Nurse Practitioner Gerontology; PCP Family Medicine; Visit Provider Family Medicine
DX: R31.9 Hematuria, unspecified (principal)
CPT/HCPCS: 81015

== ENCOUNTER → 2018-06-06 10:39 | Outpatient (BNVA) | payer MEDICARE, SELFPAY | PROVIDERS: PCP Family Medicine; Referring Provider Family Medicine; Visit Provider Orthopaedic Surgery | DX: Z47.1 Aftercare following joint replacement surgery (principal); Z96.651 Presence of right artificial knee joint | CPT/HCPCS: 99211; 99212 ==

== ENCOUNTER 2018-06-25 17:01 | Inpatient (IN) | payer MEDICARE, SELFPAY ==
[2018-06-25] VITALS (8 sets, daily range): BP systolic 171–231; BP diastolic 76–88; PULSE 81–91; RESP 4–20; TEMP 36.1–36.7; O2SAT 95–98
--- NOTE | 2018-06-25 18:35 | DI.RAD_ITS ---
SYMPTOMS/DIAGNOSIS: COUGH, SHORTNESS OF BREATH PA AND LATERAL CHEST: Comparison is made with [id number]. Mild left sided pulmonary scarring is again noted. No acute infiltrate, effusion or pulmonary edema is seen. Surgical clips are again noted in the right upper quadrant. There is stable mild mid and lower thoracic compression fractures. IMPRESSION: No acute abnormality.
[2018-06-25] MEDS: Albuterol/Ipratropium 3 ML UPD VIAL UPD ×3 (18:43→23:02)
[2018-06-25 19:02] LABS: Abs Immature Grans 0.08 k/cumm (0.0-0.09); Absolute Basophil Count 0.02 k/cumm (0.0-0.2); Absolute Eosinophil Count 0.02 k/cumm (0.0-0.7); Absolute Lymphocyte Count 1.95 k/cumm (1.2-3.4); Absolute Monocyte Count 1.13 k/cumm (0.11-0.7); Absolute Neutrophil Count 5.03 k/cumm (1.2-6.7); Basophils % 0.2; Eosinophils % 0.2; HCT 39.9 % (36.0-46.0); HGB 13.4 g/dL (12.0-15.5); Lymphocytes % 23.7; Mean Corp. HGB Concentration 33.6 g/dL (32.0-36.0); Mean Corpuscular Hemoglobin 29.7 pg (27.0-33.0); Mean Corpuscular Volume 88.5 fL (80-95); Mean Platelet Volume 10.3 fL (8.0-11.0); Monocytes % 13.7; Neutrophils % 61.2; Platelet Count 254 x1000/uL (130-400); RBC 4.51 m/cumm (4.00-5.20); RBC Distribution Width 13.5 % (11.7-14.6); White Blood Cell Count 8.23 k/cumm (4.4-10.8)
--- NOTE | 2018-06-25 19:24 | W.ED.GENAD ---
Discharge Plan Disposition Patient Disposition: [facility] INPATIENT Condition: Serious Discharge Details Chief Complaint: RespSymp Clinical Impression: Bronchitis, Asthma Primary Care Provider: Kingsley Werner ED Provider: Pete Cano Home Meds and New Rx's Prescriptions: No Action calcium carbonate-vitamin D3 [Caltrate with Vitamin D3] 1 EACH tablet 1 ea PO BID RF: 0 esomeprazole magnesium [Nexium] 40 MG capsule,delayed release(DR/EC) 20 mg PO BID Qty: 180 RF: 3 albuterol sulfate [ProAir HFA] 8.5 GM HFA aerosol inhaler 2 puff Inhalation QID PRNQty: 3 RF: 4 cholecalciferol (vitamin D3) 2,000 UNIT tablet 2,000 unit PO DAILY RF: 0 fluoxetine [Prozac] 20 mg capsule 20 mg PO DAILY Qty: 90 RF: 4 montelukast [Singulair] 10 mg tablet 10 mg PO DAILY Qty: 90 RF: 4 simvastatin [Zocor] 40 mg tablet 40 mg PO DAILY Qty: 90 RF: 4 fluticasone propionate [Flonase] 16 GM spray,suspension 2 spry NS DAILY PRNRF: 0 acetaminophen [Mapap Extra Strength] 500 MG tablet 1,000 mg PO PRN PRNRF: 0 fluticasone propion-salmeterol [Advair Diskus] 250-50 mcg/dose Blister With Device 1 puff Inhalation PRN PRNRF: 0 ibuprofen [Advil] 200 mg Tablet 600 mg PO Q6H PRN PRNRF: 0 Medical Decision Making 20:04 --77-year-old female with history of asthma and hypertension, here with cough over the past week with associated wheeze. Symptoms are refractory to prednisone and azithromycin. Patient is saturating well with no respiratory distress but does have wheeze and rhonchi. Patient treated with DuoNeb x2. Concern for pneumonia refractory to azithromycin. Chest x-ray pending. High resistance to azithromycin in the region. Plan will be to initiate treatment with alternative antibiotic coverage. Considered pertussis. PCR and culture sent. Patient is also hypertensive. Her antihypertensive was discontinued a couple months ago for dizziness. She does note mild ankle swelling bilaterally. No chest pain. Screening ECG was reviewed and interpreted by me: Sinus rhythm 77 bpm, normal axis, short NC with NC interval of 114, right bundle branch block is present, no STEMI, nondiagnostic. Labs were reviewed. Troponin negative. BNP mildly elevated at 595. Mild anion gap of 12.3 noted. Unclear etiology. Will encourage oral hydration. -- Robitussin given for excessive cough. 20:22 -- Patient reassessed: Wheeze improved but still present bilateral and still with severe cough. Remains hypertensive. Chest x-ray interpreted by radiology: No acute cardiopulmonary finding. This is not consistent with her clinical picture. 20:33 -- Spoke with Dr. Owens. He recommends sputum culture if she is able to provide specimen. He will admit the patient and requests bridging orders be placed to the floor for observation. Care transition to Dr. Owens at this time. HPI General Mode of arrival: ambulatory. Date/Time Provider Initiated Documentation: 06/25/18 17:13. Limitations to Documentation: no limitations. Information obtained by: patient. HPI Narrative: 77-year-old female with history of hypertension, asthma, here with chief complaint of cough. Patient notes that she has had a cough for the past 1 week. Patient states she was in [place] for the past 9 days and developed cough while she was there. She had associated wheeze over the past 5 days. She was seen in urgent care center in [place] and prescribed azithromycin and prednisone which she has been taking as prescribed. She has 1 day left. This is not helped her symptoms. Cough has persisted. Cough is intermittently productive of green sputum. Patient also notes that her blood pressure was elevated while she was at the urgent care center with a systolic blood pressure of 180. Of note, her PCP discontinued her antihypertensive medication a couple months ago. Related Data Home Medications Medication Instructions Recorded Confirmed calcium carbonate-vitamin D3 1 ea PO BID tab 08/23/12 06/25/18 [Caltrate with Vitamin D3] esomeprazole magnesium [Nexium] 20 mg PO BID #180 tab-cap 08/31/12 06/25/18 fluticasone propionate [Flonase] 2 spry NS DAILY PRN 06/07/13 06/25/18 albuterol sulfate [ProAir HFA] 2 puff INHALATION QID PRN #3 ea 03/21/17 06/25/18 cholecalciferol (vitamin D3) 2,000 unit PO DAILY 07/18/17 06/25/18 acetaminophen [Mapap Extra 1,000 mg PO PRN PRN 08/24/17 06/25/18 Strength] fluticasone propion-salmeterol 1 puff INHALATION PRN PRN 12/09/17 06/09/18 [Advair Diskus] fluoxetine 20 mg capsule 20 mg PO DAILY #90 cap 01/02/18 06/25/18 ibuprofen [Advil] 600 mg PO Q6H PRN PRN 01/31/18 06/25/18 montelukast 10 mg tablet 10 mg PO DAILY #90 tab 05/18/18 06/25/18 simvastatin 40 mg tablet 40 mg PO DAILY #90 tab-cap 05/18/18 06/25/18 Previous Rx's Medication Instructions Recorded fluoxetine 20 mg capsule 20 mg PO DAILY #90 cap 01/02/18 montelukast 10 mg tablet 10 mg PO DAILY #90 tab 05/18/18 simvastatin 40 mg tablet 40 mg PO DAILY #90 tab-cap 05/18/18 Allergies Allergy/AdvReac Type Severity Reaction Status Date / Time adhesive Allergy Severe SKIN RASH Verified 06/25/18 17:23 Sulfa (Sulfonamide Allergy Intermediate ITCHING Verified 06/25/18 17:23 Antibiotics) losartan Allergy Unknown SWELLING, Verified 06/25/18 17:23 ITCHING hydrocodone AdvReac Itching Verified 06/25/18 17:23 with high doses General Stated Complaint: RespSymp CLAUDIA: 3 Review of Systems Review of Systems All systems reviewed & are unremarkable except as noted in HPI and below Constitutional Denies fever(s) Cardiovascular Denies chest pain and Reports dyspnea Respiratory Reports cough and Reports dyspnea Hematologic/Lymphatic Reports other (edema mild ankles) PFSH Medical History Asthma (Chronic) GERD (gastroesophageal reflux disease) (Chronic) Gastroparesis (Chronic) HTN (hypertension) (Chronic) Hypercholesterolemia (Chronic) Osteoarthritis (Chronic) Arthritis of left knee (Resolved) Surgical History Arthroscopy, Shoulder Biopsy of breast (~2005) Cholecystectomy Extraction of cataract FX ARM (02/15/14) Hysterectomy, Laproscopic Family History Mother Diabetes Essential hypertension Depression Heart disease Hyperlipidemia Father No problems noted. Brother Diabetes Essential hypertension Hyperlipidemia Neoplasm Grandfather Diabetes Essential hypertension Grandfather Essential hypertension Heart disease Hyperlipidemia Grandmother Essential hypertension Neoplasm Stroke Grandmother Diabetes Blood disease Neoplasm FAMILY HISTORY Myocardial infarction Son Substance abuse Depression Hyperlipidemia Daughter Diabetes Depression Hyperlipidemia Asthma Social History Smoking/Tobacco Use Status: Never Alcohol Intake: current Alcohol Intake frequency: holidays/special occasions only Alcohol type: hard liquor Drug use: Never Substance use type: does not use Do you feel safe in your relationship?: Yes Exam Const General: cooperative and no acute distress Orientation: alert and awake HENMT Head: normocephalic Mouth: moist mucous membranes Throat: posterior oropharynx normal Eyes Conjunctivae: normal conjunctivae Sclera: normal sclerae Neck Neck: trachea midline, supple and no JVD Resp Effort & Inspection: able to speak in complete sentences, cough (harsh) and no respiratory distress Auscultation: no rales, rhonchi and wheezes Cardio Jugular venous pressure: no JVD Rate: regular rate and not tachycardic Rhythm: regular rhythm GI Palpation: soft, not firm, no guarding, no masses, not rigid and nontender Skin General skin exam: no rashes or lesions noted Neuro General: alert, awake, oriented x3 and tone normal Extrem General: no edema Psych Appearance: grossly normal Course Vital Signs Temperature 36.6 C 06/25/18 17:19 Pulse 91 H 06/25/18 17:19 Respiratory Rate 16 06/25/18 17:19 Blood Pressure 231/83 H 06/25/18 17:19 Pulse Oximetry 98 06/25/18 17:19 Temperature 36.6 C 06/25/18 17:19 Temperature Source Skin 06/25/18 17:19 Pulse 91 H 06/25/18 17:19 Respiratory Rate 16 06/25/18 17:19 Respiratory Effort 06/25/18 18:22 Respiratory Depth Normal 06/25/18 18:22 Blood Pressure 231/83 H 06/25/18 17:19 Blood Pressure Position Sitting 06/25/18 17:19 Pulse Oximetry 98 06/25/18 17:19 Oxygen Delivery Method Room Air 06/25/18 17:19 Oxygen Flow Rate 0 06/25/18 17:19 Pain Level 0 06/25/18 17:19 Lab/Test Results Lab/Test Results: Laboratory Tests Range/Units 06/25/18 18:56 WBC (4.4-10.8) k/cumm 8.23 RBC (4.00-5.20) m/cumm 4.51 Hgb (12.0-15.5) g/dL 13.4 Hct (36.0-46.0) % 39.9 MCV (80-95) fL 88.5 MCH (27.0-33.0) pg 29.7 MCHC (32.0-36.0) g/dL 33.6 RDW (11.7-14.6) % 13.5 Plt Count (130-400) x1000/uL 254 MPV (8.0-11.0) fL 10.3 Immature Gran % 1.0 Neutrophils % 61.2 Lymphocytes % 23.7 Monocytes % 13.7 Eosinophils % 0.2 Basophils % 0.2 Absolute Neutrophils (1.2-6.7) k/cumm 5.03 Absolute Lymphocytes (1.2-3.4) k/cumm 1.95 Absolute Monocytes (0.11-0.7) k/cumm 1.13 H Absolute Eosinophils (0.0-0.7) k/cumm 0.02 Absolute Basophils (0.0-0.2) k/cumm 0.02
[2018-06-25] MEDS: guaiFENesin 200 MG/10 ML CUP (19:26)
[2018-06-25 19:28] LABS: ALT 24 U/L (12-78); AST 12 U/L (15-37); Alkaline Phosphatase 73 U/L (46-116); Anion Gap 12.3 mmol/L (3-11); BUN 23 mg/dL (7-18); Bilirubin, Total 0.8 mg/dL (0.2-1.0); CO2 24.7 mmol/L (21.0-32.0); CREATININE 1.01 mg/dL (0.55-1.02); Calcium 8.8 mg/dL (8.5-10.1); Chloride 105 mmol/L (98-107); Estimated GFR 53.29 (mL/min/1.73m2); Glucose 114 mg/dL (70-100); NT-proBNP 595 pg/mL; Potassium 3.7 mmol/L (3.5-5.1); Sodium 142 mmol/L (136-145); Total Protein 7.2 g/dL (6.4-8.2); Troponin I 0.02 ng/mL (0.00-0.06)
--- NOTE | 2018-06-25 20:11 | DI.VRAD_ITS ---
EXAM: XR Chest, 2 Views EXAM DATE/TIME: 06/25/2018 7:40 PM CLINICAL HISTORY: 77 years old, female; Signs and symptoms; Cough TECHNIQUE: Imaging protocol: XR of the chest, 2 views. COMPARISON: CR XR CHEST 2V PA LATERAL 04/16/2018 3:00 PM FINDINGS: Lungs: Lungs are adequately inflated and symmetric. No focal consolidation or pulmonary edema. Pleural space: No pleural effusion. No pneumothorax. Heart/Mediastinum: Cardiomediastinal contours within normal limits. Upper abdomen: Cholecystectomy clips are seen within the right upper quadrant. Bones/joints: Lateral sideplate and internal screw fixation partially visualized of the bilateral proximal humeri. No acute osseous finding. Soft tissues: No focal soft tissue abnormailty. IMPRESSION: No acute cardiopulmonary finding. Dictated and Authenticated by: Vinny Srivastava MD. Ordering:FLORA Freeman MD
[2018-06-25] MEDS: levoFLOXacin 750 MG/150 ML BAG 100 MG IVPB (20:36)
[2018-06-25] MEDS: methylPREDNISolone SUCC 125 MG VIAL 60 MG IVP (20:36)
[2018-06-25] MEDS: Albuterol 2.5 MG/3 ML INH SOLN VIAL UPD (20:42)
[2018-06-25 21:37] LABS: Lactate-non-spesis 3.1 mmol/l (0.6-1.4)
--- NOTE | 2018-06-25 21:51 | W.PM.HP.N ---
Date of service: 06/25/18 Time of Service: 21:51 Assessment and Plan (1) Acute bacterial bronchitis: Start date: 06/25/18 Current visit: Yes Status: Acute This is a 77-year-old lady with a history of interstitial lung disease and asthma status post exposure to a house pet bird in the past. She recently had traveled to [place] and contracted upper respiratory infection which is not clearing after a course of oral prednisone and Zithromax. Chest x-ray did not reveal any acute infiltrates. She did have an elevated BNP with a history of some intermittent ankle edema which may indicate right-sided heart failure because of her chronic lung disease. She is not having any cardiovascular complaints today. She is having exacerbation of known hypertension which is not on medical therapy (see below). We will more aggressively treated with steroids with IV Solu-Medrol and start IV Levaquin. Sputum cultures have been obtained. We also will give her symptomatic care for her cough with the patient stating that she can take codeine without significant side effects and therefore she will be given Robitussin-AC and Tessalon Perles. She will be observed overnight and doing well can be discharged on oral therapy with close outpatient monitoring most likely needing a prolonged course of steroids. Pulmonary consultation may be appropriate as an outpatient. (2) Asthma: Start date: 06/25/18 Current visit: No Status: Chronic Aggressive respiratory treatment as per discussion under acute bronchitis. Pulmonary consultation could be sought as an outpatient and probably is not urgent for inpatient evaluation. Qualifiers: Asthma complication type: with acute exacerbation Asthma persistence: persistent Asthma severity: moderate Qualified Code(s): J45.41 - Moderate persistent asthma with (acute) exacerbation (3) Essential hypertension: Start date: 06/25/18 Current visit: No Status: Chronic This is exacerbated with her acute status and I will start her home hydrochlorothiazide with amlodipine being contraindicated with her dose of simvastatin and lisinopril being avoided because of her cough. She will also be placed on potassium supplement as precaution with her serum potassium started out below 4. Magnesium will be checked. Echocardiogram will be obtained because of her hypertension but also because of the possibility of right-sided heart failure with her history of an elevated BNP and intermittent ankle edema. History of Present Illness Chief Complaint: Persistent cough with production of green sputum Narrative: This is a 77-year-old lady who has been for 2 years and very active with dancing every week with her girlfriends. She recently traveled to [place] to visit family and days after arriving she began to have respiratory symptoms with a cough which was persistent and severe with production of sputum. She visited an outpatient urgent care center and was placed on prednisone 50 mg daily and Zithromax for 5 days with both of these ending the day of this admission. She came to the emergency room for evaluation straight from a the airport in [place] because of her persistent cough. She has not had any fever, chills or rigors. She denies any significant shortness of breath on her usual respiratory care for asthma. She has had no syncope with her cough. She does have a history of hypertension but not on therapy presently and she is concerned about her elevated blood pressure presently. She denies any chest pain or palpitations. In the emergency room she was evaluated for possible pneumonia which was negative but she did have slightly elevated BNP and has had intermittent swelling over her lateral ankles though no significant edema presently. She has had no history of cardiovascular disease or stroke. 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 Her asthma is moderate persistent and usually well controlled. When she does have upper respiratory infection she does usually have a persistent cough such as this but usually it responds to Zithromax and prednisone. Review of Systems Review of Systems 13 point review of systems otherwise unrevealing or stable and as per HPI. [facility] Medical History Asthma (Chronic) GERD (gastroesophageal reflux disease) (Chronic) Gastroparesis (Chronic) HTN (hypertension) (Chronic) Hypercholesterolemia (Chronic) Osteoarthritis (Chronic) Arthritis of left knee (Resolved) Surgical History Arthroscopy, Shoulder Biopsy of breast (~2005) Cholecystectomy Extraction of cataract FX ARM (02/15/14) Hysterectomy, Laproscopic Family History Mother Diabetes Essential hypertension Depression Heart disease Hyperlipidemia Father No problems noted. Brother Diabetes Essential hypertension Hyperlipidemia Neoplasm Grandfather Diabetes Essential hypertension Grandfather Essential hypertension Heart disease Hyperlipidemia Grandmother Essential hypertension Neoplasm Stroke Grandmother Diabetes Blood disease Neoplasm FAMILY HISTORY Myocardial infarction Son Substance abuse Depression Hyperlipidemia Daughter Diabetes Depression Hyperlipidemia Asthma Social History Smoking/Tobacco Use Status: Never Alcohol Intake: current Alcohol Intake frequency: holidays/special occasions only Alcohol type: hard liquor Drug use: Never Substance use type: does not use Do you feel safe in your relationship?: Yes Meds Home Medications Medication Instructions Recorded Confirmed Type calcium carbonate-vitamin D3 1 ea PO BID tab 08/23/12 06/25/18 History [Caltrate with Vitamin D3] esomeprazole magnesium [Nexium] 20 mg PO BID #180 tab-cap 08/31/12 06/25/18 History fluticasone propionate [Flonase] 2 spry NS DAILY PRN 06/07/13 06/25/18 History albuterol sulfate [ProAir HFA] 2 puff INHALATION QID PRN #3 ea 03/21/17 06/25/18 History cholecalciferol (vitamin D3) 2,000 unit PO DAILY 07/18/17 06/25/18 History acetaminophen [Mapap Extra 1,000 mg PO PRN PRN 08/24/17 06/25/18 History Strength] fluticasone propion-salmeterol 1 puff INHALATION PRN PRN 12/09/17 06/09/18 History [Advair Diskus] fluoxetine 20 mg capsule 20 mg PO DAILY #90 cap 01/02/18 06/25/18 Rx ibuprofen [Advil] 600 mg PO Q6H PRN PRN 01/31/18 06/25/18 History montelukast 10 mg tablet 10 mg PO DAILY #90 tab 05/18/18 06/25/18 Rx simvastatin 40 mg tablet 40 mg PO DAILY #90 tab-cap 05/18/18 06/25/18 Rx Allergies Allergy/AdvReac Type Severity Reaction Status Date / Time adhesive Allergy Severe SKIN RASH Verified 06/25/18 17:23 Sulfa (Sulfonamide Allergy Intermediate ITCHING Verified 06/25/18 17:23 Antibiotics) losartan Allergy Unknown SWELLING, Verified 06/25/18 17:23 ITCHING hydrocodone AdvReac Itching Verified 06/25/18 17:23 with high doses Exam Narrative Exam Narrative: General: Patient appears appropriate for age, moderately obese over her trunk, alert and oriented x3 in no acute distress with intermittent harsh cough which is dry. HEENT: Normocephalic with eyes revealing pupils equal and reactive to light symmetrically, extraocular movement intact and sclera anicteric. Oropharynx with slightly dry oral mucosa. Ears normal. Neck: Supple without JVD. Lungs: Fair aeration with bronchovesicular breath sounds diffusely and expiratory fine crackles in all lung jiang without focalizing. No rhonchi and no coarse crackles. Increased expiratory phase with expiratory wheeze especially with cough. No intercostal retractions with inspiration. Chest movements are symmetrical. Heart: Regular rate and rhythm without murmurs gallops appreciated. Breast: Not examined. Abdomen: Slightly obese contour, soft and nontender. No palpable hepatosplenomegaly. Bowel sounds positive in all quadrants. Genitalia/rectal: Not examined. Extremities: No clubbing, cyanosis or edema. All joints have fair range of motion. Skin: Well tanned, warm and dry with actinic changes over sun exposed areas. Neuro: Cranial nerves 2 through 12 grossly intact. No focalizing motor deficits. DTRs for his logic and symmetrical. No Babinski's. Psych: Normal long-term and short-term memory with no abnormal thought processes. Affect is normal with good eye contact. Results Imaging Imaging Studies: EXAM: XR Chest, 2 Views EXAM DATE/TIME: 06/25/2018 7:40 PM CLINICAL HISTORY: 77 years old, female; Signs and symptoms; Cough TECHNIQUE: Imaging protocol: XR of the chest, 2 views. COMPARISON: CR XR CHEST 2V PA LATERAL 04/16/2018 3:00 PM FINDINGS: Lungs: Lungs are adequately inflated and symmetric. No focal consolidation or pulmonary edema. Pleural space: No pleural effusion. No pneumothorax. Heart/Mediastinum: Cardiomediastinal contours within normal limits. Upper abdomen: Cholecystectomy clips are seen within the right upper quadrant. Bones/joints: Lateral sideplate and internal screw fixation partially visualized of the bilateral proximal humeri. No acute osseous finding. Soft tissues: No focal soft tissue abnormailty. IMPRESSION: No acute cardiopulmonary finding. Dictated and Authenticated by: Vinny Srivastava MD. Labs : 06/25/18 18:56 06/25/18 18:56 Laboratory Results - last 24 hr 0406/25/18 06/25/18 18:56 18:56 21:10 WBC 8.23 RBC 4.51 Hgb 13.4 Hct 39.9 MCV 88.5 MCH 29.7 MCHC 33.6 RDW 13.5 Plt Count 254 MPV 10.3 Immature Gran % 1.0 Neutrophils % 61.2 Lymphocytes % 23.7 Monocytes % 13.7 Eosinophils % 0.2 Basophils % 0.2 Absolute Neutrophils 5.03 Absolute Lymphocytes 1.95 Absolute Monocytes 1.13 H Absolute Eosinophils 0.02 Absolute Basophils 0.02 Sodium 142 Potassium 3.7 Chloride 105 Carbon Dioxide 24.7 Anion Gap 12.3 H BUN 23 H Creatinine 1.01 Estimated GFR/1.73 m2 53.29 Glucose 114 H Lactate 3.1 H Calcium 8.8 Total Bilirubin 0.8 AST 12 L ALT 24 Alkaline Phosphatase 73 Troponin I 0.02 NT-Pro-B Natriuret Pep 595 H Total Protein 7.2 Albumin 4.0 Last Vital Signs Temp 36.7 C 06/25/18 20:11 Pulse 81 06/25/18 20:11 Resp 16 06/25/18 20:11 BP 171/76 H 06/25/18 20:11 Pulse Ox 95 06/25/18 20:11
[2018-06-25] MEDS: Heparin 5,000 UNITS/ML VIAL 5000 UNITS SC (23:02)
[2018-06-25] MEDS: guaiFENesin/CODEINE PHOSPHATE 10 ML CUP PO (23:02)
[2018-06-25] MEDS: hydroCHLOROthiazide 25 MG TAB PO (23:03)
[2018-06-26] VITALS (8 sets, daily range): BP systolic 141–174; BP diastolic 56–73; PULSE 75–90; RESP 4–21; TEMP 36.2–37.2; O2SAT 95–99
--- NOTE | 2018-06-26 03:01 | NUR.NOTE ---
Pt was admitted to the Med/Surg from the Emergency Room with history know asthmatic with a bad cough for a week now also wheezing for 5 days. She was visiting relatives in [place] where symptoms worsened she went to the Urgent care while in [place] last week, and was given prednisone and azithromycin which was not helping. she subsequently came to the [facility] to further management. Head to toe assessment was done patient made comfortable.
[2018-06-26] MEDS: Albuterol/Ipratropium 3 ML UPD VIAL UPD ×3 (03:43→22:18)
[2018-06-26] MEDS: Normal Saline Flush 10 ML SYR IVP ×2 (03:44→09:12)
[2018-06-26] MEDS: methylPREDNISolone SUCC 125 MG VIAL 80 MG IVP ×3 (03:44→19:18)
[2018-06-26] MEDS: guaiFENesin/CODEINE PHOSPHATE 10 ML CUP PO ×4 (03:46→22:17)
[2018-06-26] MEDS: Heparin 5,000 UNITS/ML VIAL 5000 UNITS SC ×3 (05:58→22:17)
[2018-06-26 08:08] LABS: HCT 40.2 % (36.0-46.0); HGB 13.4 g/dL (12.0-15.5); Mean Corp. HGB Concentration 33.3 g/dL (32.0-36.0); Mean Corpuscular Volume 89.9 fL (80-95); Mean Platelet Volume 10.7 fL (8.0-11.0); Platelet Count 251 x1000/uL (130-400); RBC 4.47 m/cumm (4.00-5.20); RBC Distribution Width 13.8 % (11.7-14.6); White Blood Cell Count 7.04 k/cumm (4.4-10.8)
[2018-06-26 08:17] LABS: ALT 24 U/L (12-78); AST 15 U/L (15-37); Albumin 4.2 g/dL (3.4-5.0); Alkaline Phosphatase 78 U/L (46-116); BUN 21 mg/dL (7-18); Bilirubin, Total 0.9 mg/dL (0.2-1.0); CREATININE 1.01 mg/dL (0.55-1.02); Calcium 8.9 mg/dL (8.5-10.1); Chloride 101 mmol/L (98-107); Estimated GFR 53.29 (mL/min/1.73m2); Glucose 167 mg/dL (70-100); Potassium 3.7 mmol/L (3.5-5.1); Sodium 141 mmol/L (136-145); Total Protein 7.7 g/dL (6.4-8.2)
[2018-06-26] MEDS: FLUoxetine 20 MG CAP PO (09:04)
[2018-06-26] MEDS: Potassium Chloride 10 MEQ TABCR PO (09:04)
[2018-06-26] MEDS: Montelukast 10 MG TAB PO (09:04)
[2018-06-26] MEDS: Simvastatin 40 MG TAB PO (09:05)
[2018-06-26] MEDS: Benzonatate 200 MG CAP PO ×3 (09:05→19:19)
[2018-06-26] MEDS: hydroCHLOROthiazide 25 MG TAB PO (09:05)
[2018-06-26] MEDS: Esomeprazole 20 MG CAPCR PO ×2 (09:05→15:53)
--- NOTE | 2018-06-26 09:46 | PDOC.CMIN ---
Care Management Initial Assess PAST MEDICAL HISTORY/PAST SURGICAL HISTORY:: Asthma (Chronic). GERD (gastroesophageal reflux disease) (Chronic). Gastroparesis (Chronic). HTN (hypertension) (Chronic). Hypercholesterolemia (Chronic). Osteoarthritis (Chronic). Arthritis of left knee (Resolved). Arthroscopy, Shoulder. Biopsy of breast (~2005). Cholecystectomy. Extraction of cataract. FX ARM (02/15/14). Hysterectomy, Laproscopic PREVIOUS FUNCTIONAL STATUS/SOCIAL/FAMILY SUPPORTS:: Teri resides alone in [place], [place]. She has been for two years, she remains very active and enjoys dancing weekly with her girlfriends. She recently traveled to [place] to visit family. 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 She is independent with her ADLs and transportation. Her daughter, Daily resides in [place], she has a brother, Mendez nearby in [place], [place]. CURRENT FUNCTIONAL STATUS:: Teri was sleeping when CM attempted to see her the first time, the second time she was on her phone. ADVANCE DIRECTIVES:: Unable to attain. Has patient been provided with information about the portal?: Yes Did the patient sign up for the portal?: No CODE STATUS:: Full Code INSURANCE COVERAGE / FINANCIAL ISSUES:: AARP. Medicare CURRENT HOME/COMMUNITY SERVICES/EQUIPMENT:: No current home or community services. No equipment. PRIMARY CARE PHYSICIAN:: Kingsley Werner MD POTENTIAL DISCHARGE NEEDS:: Follow up appointment with surgical services PATIENT/FAMILY EDUCATION NEEDS:: Discharge education, any limitations, and follow up plan of care. Ask Me Three discussion ANTICIPATED BARRIERS TO DISCHARGE:: No anticipated barriers to discharge TRANSPORTATION:: Teri will transport via private vehicle with her daughterDaily or with a friend. PLAN:: Teri will discharge home when medically ready per . She will follow up with her plan of care as prescribed. CM will continue to offer support to patient and care team regarding discharge planning and disposition.
--- NOTE | 2018-06-26 10:50 | INITIAL_ITS ---
Care Management Initial Assess PAST MEDICAL HISTORY/PAST SURGICAL HISTORY:: Asthma (Chronic). GERD (gastroesophageal reflux disease) (Chronic). Gastroparesis (Chronic). HTN (hypertension) (Chronic). Hypercholesterolemia (Chronic). Osteoarthritis (Chronic). Arthritis of left knee (Resolved). Arthroscopy, Shoulder. Biopsy of breast (~2005). Cholecystectomy. Extraction of cataract. FX ARM (02/15/14). Hysterectomy, Laproscopic PREVIOUS FUNCTIONAL STATUS/SOCIAL/FAMILY SUPPORTS:: Teri resides alone in [place], [place]. She has been for two years, she remains very active and enjoys dancing weekly with her girlfriends. She recently traveled to [place] to visit family. 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 She is independent with her ADLs and transportation. Her daughter, Daily resides in [place], she has a brother, Mendez nearby in [place], [place]. CURRENT FUNCTIONAL STATUS:: Teri was sleeping when CM attempted to see her the first time, the second time she was on her phone. ADVANCE DIRECTIVES:: Unable to attain. Has patient been provided with information about the portal?: Yes Did the patient sign up for the portal?: No CODE STATUS:: Full Code INSURANCE COVERAGE / FINANCIAL ISSUES:: AARP. Medicare CURRENT HOME/COMMUNITY SERVICES/EQUIPMENT:: No current home or community services. No equipment. PRIMARY CARE PHYSICIAN:: Kingsley Werner MD POTENTIAL DISCHARGE NEEDS:: Follow up appointment with surgical services PATIENT/FAMILY EDUCATION NEEDS:: Discharge education, any limitations, and follow up plan of care. Ask Me Three discussion ANTICIPATED BARRIERS TO DISCHARGE:: No anticipated barriers to discharge TRANSPORTATION:: Teri will transport via private vehicle with her daughterDaily or with a friend. PLAN:: Teri will discharge home when medically ready per . She will follow up with her plan of care as prescribed. CM will continue to offer support to patient and care team regarding discharge planning and disposition.
[2018-06-26] MEDS: guaiFENesin 600 MG TABCR PO ×2 (11:59→19:19)
[2018-06-26] MEDS: Budesonide/Formoterol 160/4.5 6 GM 60 PUFF INH IH (15:52)
[2018-06-26] MEDS: Normal Saline 1,000 ML 100 ML IV (16:12)
[2018-06-26] MEDS: Acetaminophen 500 MG TAB 1000 MG PO (17:05)
[2018-06-26] MEDS: Insulin Aspart 300 UNITS/3 ML PEN SC (17:06)
--- NOTE | 2018-06-26 20:16 | W.PM.PROGNOT ---
Date of Service Date of service: 06/26/18 Time of Service: 13:45 Assessment and Plan (1) Acute bacterial bronchitis: Current visit: Yes Status: Acute Failed azithromycin. Continue levofloxacin + steroids, nebs. I added symbicort and intensified antitussives. Await pertussis PCR. Also, checking legionella and strep pneumo antigens. (2) Asthma: Current visit: No Status: Chronic Tx as above. Will need outpatient follow up. Qualifiers: Asthma severity: moderate Asthma persistence: persistent Asthma complication type: with acute exacerbation Qualified Code(s): J45.41 - Moderate persistent asthma with (acute) exacerbation (3) Essential hypertension: Current visit: No Status: Chronic Await echo. Thierry-i and CCB are on hold. I feel it is likely safe to introduce a small dose of clonidine prn. Some of this hypertension is being driven by steroids. (4) Prediabetes: Current visit: Yes Status: Acute On SSI while on steroids (5) Discharge planning issues: Current visit: Yes Status: Acute Full code (6) DVT prophylaxis: Current visit: Yes Status: Acute heparin SQ Subjective Interval history since last seen: Ms Soto states that she feels a lot better today than she did yesterday, but that she continues to have a really harsh cough, every time she moves. Cough is nonproductive. Breathing is better. Denies dizziness, complains of lower sternal chest pain every time she coughs, denies nausea/vomiting. Exam Narrative Exam Narrative: General: very pleasant, elderly female, who has coughing spells really with minimal motion HEENT: EOMI, MMM Heart: RRR, no m/r/g Lungs: quiet wheezing on expiration B GI: abdomen is soft, nontender, nondistended Extremities: no e/c/c BLE's Objective Objective Clinical Data: Abnormal lab results 06/25/18 06/26/18 Range/Units 21:10 07:29 Anion Gap 14.0 H (3-11) mmol/L BUN 21 H (7-18) mg/dL Glucose 167 H (70-100) mg/dL Lactate 3.1 H (0.6-1.4) mmol/l Vital Signs Temperature 36.7 C 06/26/18 19:49 Temperature Source Tympanic 06/26/18 19:49 Pulse 76 06/26/18 19:49 Pulse Rhythm Regular 06/26/18 08:50 Respiratory Rate 18 06/26/18 19:49 Respiratory Effort Non-Labored 06/26/18 08:50 Respiratory Depth Normal 06/26/18 08:50 Respiratory Pattern Normal 06/26/18 08:50 Blood Pressure 159/65 H 06/26/18 19:49 Blood Pressure Position Sitting 06/25/18 17:19 Pulse Oximetry 96 06/26/18 19:49 Oxygen Delivery Method Room Air 06/26/18 19:49 Oxygen Flow Rate 0 06/26/18 19:49 Pain Level 6 06/26/18 17:05 Comment 06/26/18 03:00 Intake & Output 06/25/18 06/26/18 06/26/18 23:59 11:59 23:59 Intake Total 240 / 1290 1050 / 1290 Output Total 1200 / 2075 875 / 2075 Balance -960 / -785 175 / -785 Weight 63.503 kg 62.9 kg Intake: Oral 240 / 1290 1050 / 1290 Output: Urine 1200 / 2075 875 / 2075 Other: Urine Color Yellow Urine Appearance Clear Clear Clear Urine Odor Normal Stool Size Large Stool Characteristics Soft Formed Brown Voiding Methods Toilet Toilet Laboratory Results WBC 7.04 k/cumm (4.4-10.8) 06/26/18 07:29 RBC 4.47 m/cumm (4.00-5.20) 06/26/18 07:29 Hgb 13.4 g/dL (12.0-15.5) 06/26/18 07:29 Hct 40.2 % (36.0-46.0) 06/26/18 07:29 MCV 89.9 fL (80-95) 06/26/18 07:29 MCH 30.0 pg (27.0-33.0) 06/26/18 07:29 MCHC 33.3 g/dL (32.0-36.0) 06/26/18 07:29 RDW 13.8 % (11.7-14.6) 06/26/18 07:29 Plt Count 251 x1000/uL (130-400) 06/26/18 07:29 MPV 10.7 fL (8.0-11.0) 06/26/18 07:29 Immature Gran % 1.0 06/25/18 18:56 Neutrophils % 61.2 06/25/18 18:56 Lymphocytes % 23.7 06/25/18 18:56 Monocytes % 13.7 06/25/18 18:56 Eosinophils % 0.2 06/25/18 18:56 Basophils % 0.2 06/25/18 18:56 Absolute Neutrophils 5.03 k/cumm (1.2-6.7) 06/25/18 18:56 Absolute Lymphocytes 1.95 k/cumm (1.2-3.4) 06/25/18 18:56 Absolute Monocytes 1.13 k/cumm (0.11-0.7) H 06/25/18 18:56 Absolute Eosinophils 0.02 k/cumm (0.0-0.7) 06/25/18 18:56 Absolute Basophils 0.02 k/cumm (0.0-0.2) 06/25/18 18:56 Sodium 141 mmol/L (136-145) 06/26/18 07:29 Potassium 3.7 mmol/L (3.5-5.1) 06/26/18 07:29 Chloride 101 mmol/L (98-107) 06/26/18 07:29 Carbon Dioxide 26.0 mmol/L (21.0-32.0) 06/26/18 07:29 Anion Gap 14.0 mmol/L (3-11) H 06/26/18 07:29 BUN 21 mg/dL (7-18) H 06/26/18 07:29 Creatinine 1.01 mg/dL (0.55-1.02) 06/26/18 07:29 Estimated GFR/1.73 m2 53.29 (mL/min/1.73m2) 06/26/18 07:29 Glucose 167 mg/dL (70-100) H 06/26/18 07:29 Lactate 3.1 mmol/l (0.6-1.4) H 06/25/18 21:10 Calcium 8.9 mg/dL (8.5-10.1) 06/26/18 07:29 Magnesium 2.0 mg/dL (1.8-2.4) 06/25/18 21:10 Total Bilirubin 0.9 mg/dL (0.2-1.0) 06/26/18 07:29 AST 15 U/L (15-37) 06/26/18 07:29 ALT 24 U/L (12-78) 06/26/18 07:29 Alkaline Phosphatase 78 U/L (46-116) 06/26/18 07:29 Troponin I 0.02 ng/mL (0.00-0.06) 06/25/18 18:56 NT-Pro-B Natriuret Pep 595 pg/mL (-299) H 06/25/18 18:56 Total Protein 7.7 g/dL (6.4-8.2) 06/26/18 07:29 Albumin 4.2 g/dL (3.4-5.0) 06/26/18 07:29
[2018-06-27] VITALS (9 sets, daily range): BP systolic 156–188; BP diastolic 64–84; PULSE 64–98; RESP 16–20; TEMP 36.4–37; O2SAT 93–98
[2018-06-27] MEDS: Normal Saline 1,000 ML 75 ML IV ×2 (02:47→16:37)
[2018-06-27] MEDS: guaiFENesin/CODEINE PHOSPHATE 10 ML CUP PO ×4 (02:47→17:55)
[2018-06-27] MEDS: Normal Saline Flush 10 ML SYR IVP ×2 (04:40→11:38)
[2018-06-27] MEDS: Albuterol/Ipratropium 3 ML UPD VIAL UPD ×2 (04:41→10:00)
[2018-06-27] MEDS: methylPREDNISolone SUCC 125 MG VIAL 80 MG IVP ×3 (04:41→19:34)
[2018-06-27] MEDS: Esomeprazole 20 MG CAPCR PO ×2 (06:41→16:37)
[2018-06-27] MEDS: Heparin 5,000 UNITS/ML VIAL 5000 UNITS SC ×3 (06:42→21:16)
[2018-06-27] MEDS: Budesonide/Formoterol 160/4.5 6 GM 60 PUFF INH IH ×2 (07:43→19:33)
[2018-06-27 08:05] LABS: Abs Immature Grans 0.04 k/cumm (0.0-0.09); Absolute Basophil Count 0.01 k/cumm (0.0-0.2); Absolute Lymphocyte Count 0.88 k/cumm (1.2-3.4); Absolute Monocyte Count 0.44 k/cumm (0.11-0.7); Absolute Neutrophil Count 7.66 k/cumm (1.2-6.7); Basophils % 0.1; HGB 12.9 g/dL (12.0-15.5); Immature Grans % 0.4; Lymphocytes % 9.7; Mean Corp. HGB Concentration 33.1 g/dL (32.0-36.0); Mean Corpuscular Volume 90.7 fL (80-95); Mean Platelet Volume 10.8 fL (8.0-11.0); Monocytes % 4.9; Neutrophils % 84.9; Platelet Count 242 x1000/uL (130-400); RBC Distribution Width 13.9 % (11.7-14.6); White Blood Cell Count 9.03 k/cumm (4.4-10.8)
[2018-06-27] MEDS: Benzonatate 200 MG CAP PO ×3 (08:18→19:34)
[2018-06-27] MEDS: Simvastatin 40 MG TAB PO (08:18)
[2018-06-27] MEDS: Potassium Chloride 10 MEQ TABCR PO (08:18)
[2018-06-27] MEDS: Montelukast 10 MG TAB PO (08:18)
[2018-06-27 08:19] LABS: Anion Gap 10.4 mmol/L (3-11); BUN 27 mg/dL (7-18); CO2 26.6 mmol/L (21.0-32.0); CREATININE 0.98 mg/dL (0.55-1.02); Calcium 8.8 mg/dL (8.5-10.1); Chloride 104 mmol/L (98-107); Estimated GFR 55.18 (mL/min/1.73m2); Glucose 180 mg/dL (70-100); Potassium 3.6 mmol/L (3.5-5.1); Sodium 141 mmol/L (136-145)
[2018-06-27] MEDS: FLUoxetine 20 MG CAP PO (08:19)
[2018-06-27] MEDS: guaiFENesin 600 MG TABCR PO ×2 (08:19→19:34)
[2018-06-27] MEDS: Insulin Aspart 300 UNITS/3 ML PEN SC ×3 (08:19→17:10)
--- NOTE | 2018-06-27 12:30 | MERGE_ITS ---
*[facility]* *[facility]* [address] [place] [address] Date of study: 06/27/2018 Transthoracic Echocardiography M-mode, complete 2D, complete spectral Doppler, and color Doppler *STUDY CONCLUSIONS* Summary: 1. Left ventricle: The cavity size was normal. Wall thickness was increased in a pattern of mild LVH. Systolic function was hyperdynamic. The estimated ejection fraction was 65-70%. Wall motion was normal; there were no regional wall motion abnormalities. Some parameters suggest diastolic dysfunction. 2. Mitral valve: There was mild regurgitation. 3. Right ventricle: The cavity size was normal. Wall thickness was normal. Systolic function was normal. 4. Inferior vena cava: The vessel was normal in size. The respirophasic diameter changes were in the normal range (greater than or equal to 50%). 5. Pericardium, extracardiac: A small pericardial effusion was identified anterior to the heart. The fluid contained focal strands.There was no evidence of hemodynamic compromise. Anterior effusion dimension: 0.5cm. *PATIENT PRESENTATION* Height: 162.6cm ((64in) ) S/D Pressure: 157 / 69 Weight: 63.5kg ((139.7lb) ) BSA: 1.7m^2 Test start time: 12:30 PM. Test stop time: 01:20 PM. ORDERING Gerardo Owens REFERRING Gerardo Owens PERFORMING Unknown CONSULTING Kingsley Werner PERFORMING [facility] SOCIAL MEDIA EXECUTIVE RT Ivan (R)(CT)SKYLAR *PROCEDURE DATA* Procedure information: The patient was identified by two identifiers. This study was interpreted by [facility]. Pertinent images and digital data are archived for permanent storage and are available for subsequent review. Comparison was made to the study of 2009. Study status: Routine. Transthoracic echocardiography. M-mode, complete 2D, complete spectral Doppler, and color Doppler. A Transthoracic Echocardiogram was performed. Scanning was performed from the parasternal, apical, subcostal, and suprasternal notch acoustic windows. Images were obtained using an [id number] cardiac ultrasound machine. Image quality was adequate. Study completion: The patient tolerated the procedure well. There were no complications. History: PMH: Elevated BNP and cough. HTN. *CARDIAC ANATOMY* Left ventricle: The cavity size was normal. Wall thickness was increased in a pattern of mild LVH. Systolic function was hyperdynamic. The estimated ejection fraction was 65-70%. Wall motion was normal; there were no regional wall motion abnormalities. Some parameters suggest diastolic dysfunction. Aortic valve: Trileaflet; normal thickness leaflets. Mobility was not restricted. Doppler: Transvalvular velocity was within the normal range. There was no stenosis. There was no significant regurgitation. VTI ratio of LVOT to aortic valve: 0.65. Valve area (VTI): 2.2cm^2. Indexed valve area (VTI): 1.3cm^2/m^2. Peak velocity ratio of LVOT to aortic valve: 0.65. Valve area (Vmax): 2.2cm^2. Indexed valve area (Vmax): 1.3cm^2/m^2. Mean velocity ratio of LVOT to aortic valve: 0.68. Valve area (Vmean): 2.3cm^2. Indexed valve area (Vmean): 1.4cm^2/m^2. Mean gradient (S): 5.8mm Hg. Peak gradient (S): 9.8mm Hg. Aorta: Aortic root: The aortic root was normal in size. Ascending aorta: The ascending aorta was normal in size. Mitral valve: Structurally normal valve. Mobility was not restricted. Doppler: Transvalvular velocity was within the normal range. There was no evidence for stenosis. There was mild regurgitation. Valve area by pressure half-time: 4.8cm^2. Indexed valve area by pressure half-time: 2.8cm^2/m^2. Peak gradient (D): 2.5mm Hg. Left atrium: The atrium was normal in size. Right ventricle: The cavity size was normal. Wall thickness was normal. Systolic function was normal. Pulmonic valve: Structurally normal valve. Doppler: Transvalvular velocity was within the normal range. There was no evidence for stenosis. There was trivial regurgitation. Peak gradient (S): 4.1mm Hg. Tricuspid valve: Structurally normal valve. Doppler: Transvalvular velocity was within the normal range. There was no evidence for stenosis. There was mild regurgitation. Pulmonary artery: Pulmonary systolic pressure was within the normal range, in the range of 30mm Hg to 35mm Hg. Right atrium: The atrium was normal in size. Pericardium: A small pericardial effusion was identified anterior to the heart. The fluid contained focal strands.There was no evidence of hemodynamic compromise. Systemic veins: Inferior vena cava: Well visualized. The vessel was normal in size. The respirophasic diameter changes were in the normal range (greater than or equal to 50%). Measurements Left ventricle Value Reference LV ID, ED, PLAX 4.7 cm 3.5 - 6.0 LV ID, ES, PLAX 2.9 cm 2.1 - 4.0 LV PW thickness, ED, PLAX 1.1 cm LV end-diastolic volume, 1-p A2C 62 ml LV ejection fraction, 1-p A2C 59 % LV end-diastolic volume, 1-p A4C 75 ml LV ejection fraction, 1-p A4C 67 % LV e', lateral 0.085 m/sec LV E/e', lateral 9 LV e', medial 0.062 m/sec LV E/e', medial 13 LV e', average 0.073 m/sec LV E/e', average 11 Ventricular septum Value Reference IVS thickness, ED, PLAX 1.1 cm LVOT Value Reference LVOT ID, A-P 2.1 cm LVOT area 3.4 cm^2 LVOT peak velocity, S 1.01 m/sec LVOT mean velocity, S 0.79 m/sec LVOT VTI, S 22.9 cm LVOT peak gradient, S 4.1 mm Hg LVOT mean gradient, S 2.7 mm Hg Stroke volume (SV), LVOT DP 78 ml Stroke index (SV/bsa), LVOT DP 46 ml/m^2 Aortic valve Value Reference Aortic valve peak velocity, S 1.6 m/sec Aortic valve mean velocity, S 1.16 m/sec Aortic valve VTI, S 35.0 cm Aortic mean gradient, S 5.8 mm Hg Aortic peak gradient, S 9.8 mm Hg VTI ratio, LVOT/AV 0.65 Aortic valve area, VTI 2.2 cm^2 Velocity ratio, peak, LVOT/AV 0.65 Aortic valve area, peak velocity 2.2 cm^2 Velocity ratio, mean, LVOT/AV 0.68 Aortic valve area, mean velocity 2.3 cm^2 Aortic valve area/bsa, mean velocity 1.4 cm^2/m^2 Aorta Value Reference Aortic root ID, ED 2.7 cm Ascending aorta ID, A-P, S 3.0 cm Left atrium Value Reference LA ID, A-P, ES 3.5 cm LA ID/bsa, A-P 2.0 cm/m^2 <=2.2 LA area, ES, A4C 17.9 cm^2 8.8 - 23.4 LA area, ES, A2C 16 cm^2 LA volume, ES, 1-p A4C 30 ml LA volume/bsa, ES, 1-p A4C 18 ml/m^2 LA volume, ES, 2-p 48 ml LA volume/bsa, ES, 2-p 28 ml/m^2 LA/aortic root ratio 1.26 Mitral valve Value Reference Mitral E-wave peak velocity 0.78 m/sec Mitral A-wave peak velocity 1.16 m/sec Mitral deceleration time 159 ms 150 - 230 Mitral pressure half-time 46 ms Mitral peak gradient, D 2.5 mm Hg Mitral E/A ratio, peak 0.68 Mitral valve area, PHT, DP 4.8 cm^2 Tricuspid valve Value Reference Tricuspid regurg peak velocity 2.9 m/sec Tricuspid peak RV-RA gradient 32.9 mm Hg Right atrium Value Reference RA area, ES, A4C 13.3 cm^2 8.3 - 19.5 Pericardium Value Reference Pericardial effusion dimens, anterior 0.5 cm Pulmonic valve Value Reference Pulmonic peak gradient, S 4.1 mm Hg Legend: (L) and (H) [place] values outside specified reference range. I have personally reviewed the images and have reviewed and edited the reported findings. Electronically signed by Elian Trevizo 06/27/2018 14:22
--- NOTE | 2018-06-27 16:08 | PHARADMIT ---
Addendum entered by Erick Parks III 06/28/18 14:39: Pharmacy Note Subjective Pertussis, strep,legionella precautions still enforce. Cough has worsened. Objective VS-OK Lytes,SCr, H&H,WBC,Plts-OK Wgt-64.9 kg Assessment Tussionex started (failed Robitussin-AC (dc'd) Plan No new MD note yet today. Original Note: Admission Pharmacy Clinical Review ASTHMA, HYPERTENSION, BRONCHITIS Code Status Full Code Current Weight Wgt- 62.9 kg Renally Cleared and Narrow Therapeutic Index Meds CrCl~ 42.1 mL/min Meds-OK QTc Value / Action Taken QTc-437 na BP Control, Fever BP- 185/78 Electrolytes reviewed Na- 141 K+3.6 MMag-2.0 DVT Prophylaxis Heparin SC Opiate Usage / Scheduled Bowel Regimen Ordered Yes Yes Plt/SCr for Heparin / Enoxaparin Plts-242 SCr- 0.98 INR for Warfarin NA H/H stable, WBC/Bands H&H- 12.9/39.0 WBC- 9.03 Antibiotic appropriateness Levaquin IV Q48hrs Cultures and Sensitivities Blood- no growth/24hrs Surgical ABX d/c within 24 hr na DM control / Insulin Dosing BG- 180 Aspart, Heart Failure (Check EF%) (KRISTI's, B-Block, Diuretics) none IV to PO Switch No Home Meds Reviewed Yes Home Meds Not Ordered Lisinopril/HCTZ, Advil, Vit-D, Comments
--- NOTE | 2018-06-27 16:18 | W.PM.PROGNOT ---
Date of Service Date of service: 06/27/18 Time of Service: 16:19 Assessment and Plan (1) Acute bacterial bronchitis: Current visit: Yes Status: Acute Failed azithromycin as an outpatient. Labs pending including pertussis PCR, legionella and strep pneumo antigens. Continue Levaquin, steroids, Symbicort. Decrease interval between nebs. Continue antitussives. (2) Asthma: Current visit: No Status: Chronic Treat as above. Will need outpatient follow-up. Qualifiers: Asthma severity: moderate Asthma persistence: persistent Asthma complication type: with acute exacerbation Qualified Code(s): J45.41 - Moderate persistent asthma with (acute) exacerbation (3) Essential hypertension: Current visit: No Status: Chronic Blood pressure acceptable, KRISTI inhibitor and calcium channel josselyn on hold. Echocardiogram today shows wall thickness increase in a pattern of mild LVH, systolic function was hyperdynamic, LVEF was 65-70%, no regional wall motion abnormalities, some parameters to suggest diastolic dysfunction. Continue to monitor blood pressure. (4) Prediabetes: Current visit: No Status: Chronic Continue sliding scale insulin while on steroids. Continue carb counting diet. (5) DVT prophylaxis: Current visit: Yes Status: Acute Subcutaneous heparin. (6) Discharge planning issues: Current visit: Yes Status: Acute She is a full code. This case was discussed with Dr. Alanis who is in agreement Subjective Interval history since last seen: Teri Soto continues to have a dry harsh cough when she moves. She is not producing any sputum. She feels short of breath with activity, she feels wheezy. She has not been sleeping very well, she feels tired. She is eating and drinking small amounts, but she does not have a good appetite. She denies nausea, vomiting or diarrhea. She did have a small bowel movement. She denies any dysuria or hematuria. She has been afebrile. She feels generally unwell, she does not feel ready for discharge home. Exam Narrative Exam Narrative: General: Appears younger than stated age, skin is tanned. She is awake and alert, she is pleasant and cooperative. No shortness of breath while talking. HEENT: Normocephalic, atraumatic, mucous membranes slightly dry. Neck: Supple, no JVD. Cardiovascular: Heart has regular rate and rhythm, no murmur appreciated. Respiratory: Respirations appear unlabored at rest. Dry, harsh cough with deep breathing. Inspiratory and expiratory wheezes noted on auscultation throughout lung jiang. Gastrointestinal: Normoactive bowel sounds, abdomen soft, nontender on palpation, nondistended. Extremities: Well perfused, no clubbing, cyanosis or edema. Peripheral pulses palpable bilaterally. Objective Objective Clinical Data: Abnormal lab results 06/27/18 06/27/18 Range/Units 07:18 07:18 Absolute Neutrophils 7.66 H (1.2-6.7) k/cumm Absolute Lymphocytes 0.88 L (1.2-3.4) k/cumm BUN 27 H (7-18) mg/dL Glucose 180 H (70-100) mg/dL Vital Signs Temperature 37.0 C 06/27/18 15:58 Temperature Source Tympanic 06/27/18 15:58 Pulse 98 H 06/27/18 15:58 Pulse Rhythm Regular 06/27/18 07:55 Respiratory Rate 20 06/27/18 15:58 Respiratory Effort Non-Labored 06/27/18 07:55 Respiratory Depth Normal 06/27/18 07:55 Respiratory Pattern Normal 06/27/18 07:55 Blood Pressure 185/78 H 06/27/18 15:58 Blood Pressure Position Sitting 06/25/18 17:19 Pulse Oximetry 96 06/27/18 15:58 Oxygen Delivery Method Room Air 06/27/18 15:58 Oxygen Flow Rate 0 06/27/18 15:58 Pain Level 0 06/27/18 11:25 Comment 06/27/18 11:25 Intake & Output 06/26/18 06/27/18 06/27/18 23:59 11:59 23:59 Intake Total 1630 / 1870 598.75 / 1327.50 728.75 / 1327.50 Output Total 1775 / 3575 950 / 950 Balance -145 / -1705 -351.25 / 377.50 728.75 / 377.50 Weight 62.9 kg Intake: IV 580 / 580 358.75 / 1087.50 728.75 / 1087.50 Oral 1050 / 1290 240 / 240 Output: Urine 1775 / 3575 950 / 950 Other: Urine Color Yellow Yellow Urine Appearance Clear Clear Urine Odor None Normal Comment VOIDING AT DESTIN INTO TOILET Voiding Methods Toilet Toilet Laboratory Results WBC 9.03 k/cumm (4.4-10.8) 06/27/18 07:18 RBC 4.30 m/cumm (4.00-5.20) 06/27/18 07:18 Hgb 12.9 g/dL (12.0-15.5) 06/27/18 07:18 Hct 39.0 % (36.0-46.0) 06/27/18 07:18 MCV 90.7 fL (80-95) 06/27/18 07:18 MCH 30.0 pg (27.0-33.0) 06/27/18 07:18 MCHC 33.1 g/dL (32.0-36.0) 06/27/18 07:18 RDW 13.9 % (11.7-14.6) 06/27/18 07:18 Plt Count 242 x1000/uL (130-400) 06/27/18 07:18 MPV 10.8 fL (8.0-11.0) 06/27/18 07:18 Immature Gran % 0.4 06/27/18 07:18 Neutrophils % 84.9 06/27/18 07:18 Lymphocytes % 9.7 06/27/18 07:18 Monocytes % 4.9 06/27/18 07:18 Eosinophils % 0.0 06/27/18 07:18 Basophils % 0.1 06/27/18 07:18 Absolute Neutrophils 7.66 k/cumm (1.2-6.7) H 06/27/18 07:18 Absolute Lymphocytes 0.88 k/cumm (1.2-3.4) L 06/27/18 07:18 Absolute Monocytes 0.44 k/cumm (0.11-0.7) 06/27/18 07:18 Absolute Eosinophils 0.00 k/cumm (0.0-0.7) 06/27/18 07:18 Absolute Basophils 0.01 k/cumm (0.0-0.2) 06/27/18 07:18 Sodium 141 mmol/L (136-145) 06/27/18 07:18 Potassium 3.6 mmol/L (3.5-5.1) 06/27/18 07:18 Chloride 104 mmol/L (98-107) 06/27/18 07:18 Carbon Dioxide 26.6 mmol/L (21.0-32.0) 06/27/18 07:18 Anion Gap 10.4 mmol/L (3-11) 06/27/18 07:18 BUN 27 mg/dL (7-18) H 06/27/18 07:18 Creatinine 0.98 mg/dL (0.55-1.02) 06/27/18 07:18 Estimated GFR/1.73 m2 55.18 (mL/min/1.73m2) 06/27/18 07:18 Glucose 180 mg/dL (70-100) H 06/27/18 07:18 Lactate 3.1 mmol/l (0.6-1.4) H 06/25/18 21:10 Calcium 8.8 mg/dL (8.5-10.1) 06/27/18 07:18 Magnesium 2.0 mg/dL (1.8-2.4) 06/27/18 07:18 Total Bilirubin 0.9 mg/dL (0.2-1.0) 06/26/18 07:29 AST 15 U/L (15-37) 06/26/18 07:29 ALT 24 U/L (12-78) 06/26/18 07:29 Alkaline Phosphatase 78 U/L (46-116) 06/26/18 07:29 Troponin I 0.02 ng/mL (0.00-0.06) 06/25/18 18:56 NT-Pro-B Natriuret Pep 595 pg/mL (-299) H 06/25/18 18:56 Total Protein 7.7 g/dL (6.4-8.2) 06/26/18 07:29 Albumin 4.2 g/dL (3.4-5.0) 06/26/18 07:29
--- NOTE | 2018-06-27 17:13 | PDOC.CMPRO ---
Care Management Progress Note S/O: Teri reported not feeling ready to return home per MD. She continues to cough with movement and is being closely monitored. CM continues to follow. A: 77 year old female admitted to [facility] 06/25/18 for Asthma, Hypertension, Bronchitis P Teri will discharge home when medically ready per MD. She will follow up with her plan of care as prescribed. CM will continue to offer support to patient and care team regarding discharge planning and disposition.
[2018-06-27] MEDS: Acetaminophen 500 MG TAB 1000 MG PO (17:54)
[2018-06-27] MEDS: levoFLOXacin 750 MG/150 ML BAG 100 MG IVPB (21:16)
[2018-06-27] MEDS: Melatonin 3 MG TAB PO (21:16)
[2018-06-28] VITALS (8 sets, daily range): BP systolic 150–190; BP diastolic 54–78; PULSE 59–77; RESP 7–20; TEMP 36.1–36.6; O2SAT 95–100
[2018-06-28] MEDS: guaiFENesin/CODEINE PHOSPHATE 10 ML CUP PO (02:33)
[2018-06-28] MEDS: Normal Saline Flush 10 ML SYR IVP (04:52)
[2018-06-28] MEDS: methylPREDNISolone SUCC 125 MG VIAL 80 MG IVP ×3 (04:52→19:40)
[2018-06-28] MEDS: Esomeprazole 20 MG CAPCR PO ×2 (06:52→16:00)
[2018-06-28] MEDS: Normal Saline 1,000 ML 75 ML IV ×2 (06:52→21:10)
[2018-06-28] MEDS: Heparin 5,000 UNITS/ML VIAL 5000 UNITS SC ×3 (06:53→21:08)
[2018-06-28 07:27] LABS: HCT 39.6 % (36.0-46.0); HGB 12.9 g/dL (12.0-15.5); Mean Corp. HGB Concentration 32.6 g/dL (32.0-36.0); Mean Corpuscular Hemoglobin 29.7 pg (27.0-33.0); Mean Corpuscular Volume 91.2 fL (80-95); Mean Platelet Volume 10.5 fL (8.0-11.0); Platelet Count 244 x1000/uL (130-400); RBC 4.34 m/cumm (4.00-5.20); RBC Distribution Width 13.9 % (11.7-14.6); White Blood Cell Count 9.85 k/cumm (4.4-10.8)
[2018-06-28 07:49] LABS: Anion Gap 8.3 mmol/L (3-11); BUN 30 mg/dL (7-18); CO2 25.7 mmol/L (21.0-32.0); CREATININE 0.87 mg/dL (0.55-1.02); Calcium 8.1 mg/dL (8.5-10.1); Chloride 105 mmol/L (98-107); Glucose 178 mg/dL (70-100); Potassium 3.9 mmol/L (3.5-5.1); Sodium 139 mmol/L (136-145)
[2018-06-28] MEDS: Insulin Aspart 300 UNITS/3 ML PEN SC ×3 (08:20→17:19)
[2018-06-28] MEDS: Potassium Chloride 10 MEQ TABCR PO (08:22)
[2018-06-28] MEDS: Montelukast 10 MG TAB PO (08:22)
[2018-06-28] MEDS: guaiFENesin 600 MG TABCR PO ×2 (08:22→19:40)
[2018-06-28] MEDS: Simvastatin 40 MG TAB PO (08:22)
[2018-06-28] MEDS: cloNIDine 0.1 MG TAB PO (08:22)
[2018-06-28] MEDS: FLUoxetine 20 MG CAP PO (08:22)
[2018-06-28] MEDS: Benzonatate 200 MG CAP PO ×3 (08:22→19:40)
[2018-06-28] MEDS: Budesonide/Formoterol 160/4.5 6 GM 60 PUFF INH IH ×2 (09:25→19:40)
[2018-06-28] MEDS: Albuterol/Ipratropium 3 ML UPD VIAL UPD (09:28)
--- NOTE | 2018-06-28 15:47 | W.PM.PROGNOT ---
Date of Service Date of service: 06/28/18 Time of Service: 15:47 Assessment and Plan (1) Acute bacterial bronchitis: Current visit: Yes Status: Acute Failed azithromycin as an outpatient. Labs pending including pertussis PCR, legionella and strep pneumo antigens. Mild improvement clinically. Continue Levaquin, steroids, Symbicort, nebs. Continue antitussives, upgraded to Hycodan with some relief. CT chest. (2) Asthma: Current visit: No Status: Chronic Treat as above. Will need outpatient follow-up. Qualifiers: Asthma severity: moderate Asthma persistence: persistent Asthma complication type: with acute exacerbation Qualified Code(s): J45.41 - Moderate persistent asthma with (acute) exacerbation (3) Essential hypertension: Current visit: No Status: Chronic Blood pressure elevated. KRISTI inhibitor and calcium channel jossleyn on hold. Echocardiogram showed wall thickness increase in a pattern of mild LVH, systolic function was hyperdynamic, LVEF was 65-70%, no regional wall motion abnormalities, some parameters to suggest diastolic dysfunction. Continue to monitor blood pressure, continue PRN clonidine. Consider adding Amlodipine if blood pressure remains elevated. (4) Prediabetes: Current visit: No Status: Chronic Continue sliding scale insulin while on steroids. Continue carb counting diet. (5) DVT prophylaxis: Current visit: Yes Status: Acute Subcutaneous heparin. (6) Discharge planning issues: Current visit: Yes Status: Acute She is a full code. This case was discussed with Dr. Alanis who is in agreement Subjective Interval history since last seen: Teri continues to have a nonproductive, dry, harsh cough every time she moves. If she lays still, she does not cough. She feels slightly wheezy, but improving. Her chest hurts when she coughs. She feels tired, she has been sleeping throughout the day. She continues to have some shortness of breath with activity. She is eating and drinking and tolerating her diet. She felt nauseated this morning, the nausea has since resolved. She had a normal bowel movement 2 days ago. She has bowel medications available. Exam Narrative Exam Narrative: General: Appears younger than stated age, skin is tanned. She is awake and alert, appears fatigued. She is pleasant and cooperative. No shortness of breath while talking. HEENT: Normocephalic, atraumatic, mucous membranes slightly dry. Neck: Supple, no JVD. Cardiovascular: Heart has regular rate and rhythm, no murmur appreciated. Respiratory: Respirations appear unlabored at rest. Dry, harsh cough with deep breathing. Expiratory wheezes noted on auscultation throughout lung jiang. Gastrointestinal: Normoactive bowel sounds, abdomen soft, nontender on palpation, nondistended. Extremities: Well perfused, no clubbing, cyanosis or edema. Peripheral pulses palpable bilaterally. Objective Objective Clinical Data: Abnormal lab results 06/28/18 Range/Units 07:06 BUN 30 H (7-18) mg/dL Glucose 178 H (70-100) mg/dL Calcium 8.1 L (8.5-10.1) mg/dL Vital Signs Temperature 36.4 C L 06/28/18 11:19 Temperature Source Tympanic 06/28/18 11:19 Pulse 59 L 06/28/18 11:19 Pulse Rhythm Regular 06/28/18 08:37 Respiratory Rate 18 06/28/18 11:19 Respiratory Effort Non-Labored 06/28/18 08:37 Respiratory Depth Normal 06/28/18 08:37 Respiratory Pattern Normal 06/28/18 08:37 Blood Pressure 167/76 H 06/28/18 11:19 Blood Pressure Position Sitting 06/25/18 17:19 Pulse Oximetry 95 06/28/18 11:19 Oxygen Delivery Method Room Air 06/28/18 11:19 Oxygen Flow Rate 0 06/28/18 11:19 Pain Level 6 06/27/18 17:54 Comment 06/28/18 11:19 Intake & Output 06/27/18 06/28/18 06/28/18 23:59 11:59 23:59 Intake Total 1316.25 / 1915.00 1125 / 1125 Output Total 550 / 1500 Balance 766.25 / 415.00 1125 / 1125 Weight 64.9 kg Intake: IV 956.25 / 1315.00 1000 / 1000 Oral 360 / 600 125 / 125 Output: Urine 550 / 1500 Other: Urine Color Yellow Urine Appearance Clear Urine Odor None Comment void x 1 pt voiding ad rebecca in bathroom; urine not assessed Voiding Methods Toilet Toilet Toilet Laboratory Results WBC 9.85 k/cumm (4.4-10.8) 06/28/18 07:06 RBC 4.34 m/cumm (4.00-5.20) 06/28/18 07:06 Hgb 12.9 g/dL (12.0-15.5) 06/28/18 07:06 Hct 39.6 % (36.0-46.0) 06/28/18 07:06 MCV 91.2 fL (80-95) 06/28/18 07:06 MCH 29.7 pg (27.0-33.0) 06/28/18 07:06 MCHC 32.6 g/dL (32.0-36.0) 06/28/18 07:06 RDW 13.9 % (11.7-14.6) 06/28/18 07:06 Plt Count 244 x1000/uL (130-400) 06/28/18 07:06 MPV 10.5 fL (8.0-11.0) 06/28/18 07:06 Immature Gran % 0.4 06/27/18 07:18 Neutrophils % 84.9 06/27/18 07:18 Lymphocytes % 9.7 06/27/18 07:18 Monocytes % 4.9 06/27/18 07:18 Eosinophils % 0.0 06/27/18 07:18 Basophils % 0.1 06/27/18 07:18 Absolute Neutrophils 7.66 k/cumm (1.2-6.7) H 06/27/18 07:18 Absolute Lymphocytes 0.88 k/cumm (1.2-3.4) L 06/27/18 07:18 Absolute Monocytes 0.44 k/cumm (0.11-0.7) 06/27/18 07:18 Absolute Eosinophils 0.00 k/cumm (0.0-0.7) 06/27/18 07:18 Absolute Basophils 0.01 k/cumm (0.0-0.2) 06/27/18 07:18 Sodium 139 mmol/L (136-145) 06/28/18 07:06 Potassium 3.9 mmol/L (3.5-5.1) 06/28/18 07:06 Chloride 105 mmol/L (98-107) 06/28/18 07:06 Carbon Dioxide 25.7 mmol/L (21.0-32.0) 06/28/18 07:06 Anion Gap 8.3 mmol/L (3-11) 06/28/18 07:06 BUN 30 mg/dL (7-18) H 06/28/18 07:06 Creatinine 0.87 mg/dL (0.55-1.02) 06/28/18 07:06 Estimated GFR/1.73 m2 >= 60.00 (mL/min/1.73m2) 06/28/18 07:06 Glucose 178 mg/dL (70-100) H 06/28/18 07:06 Lactate 3.1 mmol/l (0.6-1.4) H 06/25/18 21:10 Calcium 8.1 mg/dL (8.5-10.1) L 06/28/18 07:06 Magnesium 2.0 mg/dL (1.8-2.4) 06/27/18 07:18 Total Bilirubin 0.9 mg/dL (0.2-1.0) 06/26/18 07:29 AST 15 U/L (15-37) 06/26/18 07:29 ALT 24 U/L (12-78) 06/26/18 07:29 Alkaline Phosphatase 78 U/L (46-116) 06/26/18 07:29 Troponin I 0.02 ng/mL (0.00-0.06) 06/25/18 18:56 NT-Pro-B Natriuret Pep 595 pg/mL (-299) H 06/25/18 18:56 Total Protein 7.7 g/dL (6.4-8.2) 06/26/18 07:29 Albumin 4.2 g/dL (3.4-5.0) 06/26/18 07:29
--- NOTE | 2018-06-28 16:03 | PDOC.CMPRO ---
Care Management Progress Note S/O: Teri was sleeping when CM entered the room, she became awake easily and reported the provider had ordered a stronger cough suppressant. She did cough when communicating, but was pleasant and open in conversation. She reported feeling she would have no additional needs at discharge and feels well supported and has her current needs met in the community. CM continues to follow. A: 77 year old female admitted to [facility] 06/25/18 for Asthma, Hypertension, Bronchitis P: Teri will discharge home when medically ready per MD. She will follow up with her plan of care as prescribed. CM will continue to offer support to patient and care team regarding discharge planning and disposition.
--- NOTE | 2018-06-28 16:06 | CMPROGNOTE_ITS ---
Care Management Progress Note S/O: Teri was sleeping when CM entered the room, she became awake easily and reported the provider had ordered a stronger cough suppressant. She did cough when communicating, but was pleasant and open in conversation. She reported feeling she would have no additional needs at discharge and feels well supported and has her current needs met in the community. CM continues to follow. A: 77 year old female admitted to [facility] 06/25/18 for Asthma, Hypertension, Bronchitis P: Teri will discharge home when medically ready per MD. She will follow up with her plan of care as prescribed. CM will continue to offer support to patient and care team regarding discharge planning and disposition.
--- NOTE | 2018-06-28 16:45 | DI.CT_ITS ---
SYMPTOM/DIAGNOSIS: CONTINUED HARSH COUGH, FATIGUE, SOB, WHEEZING CHEST CT: A high resolution examination was carried out. The pleural spaces are normal. There is no effusion or pneumothorax. The heart is normal. There is no pericardial effusion. There are moderate atherosclerotic changes involving the thoracic aorta. Incidental note is made in the upper abdomen of a 4.5 cm., bi lobed, benign appearing left hepatic lobe cyst. There is no lymphadenopathy. Note is made of a few old appearing minimal compression deformities involving the dorsal spine. The soft tissues are unremarkable. The patient is status post cholecystectomy. There are a few densities in the left lung which most likely represent scarring. There is no focal area of consolidation. The lungs are otherwise unremarkable with no evidence of a mass. There is no evidence of hilar or mediastinal adenopathy. SUMMARY: A small amount of scarring is noted involving the lungs. There is no evidence of an acute pneumonitis.
--- NOTE | 2018-06-28 16:59 | DI.VRAD_ITS ---
EXAM: CT Chest Without Contrast EXAM DATE/TIME: 06/28/2018 4:21 PM CLINICAL HISTORY: 77 years old, female; Signs and symptoms; Other: Continued harsh cough, wheezing, SOB, fatigue; Patient HX: Cough x 10 days. Recent plane flight to [place]. Productive cough TECHNIQUE: Imaging protocol: Axial computed tomography images of the chest without intravenous contrast. Radiation optimization: All CT scans at this facility use at least one of these dose optimization techniques: automated exposure control; mA and/or kV adjustment per patient size (includes targeted exams where dose is matched to clinical indication); or iterative reconstruction. COMPARISON: CT CHEST HIGH RESOLUTION 02/13/2014 5:46 PM FINDINGS: Lungs: See Stomach And Bowel Finding. Pleural space: Normal. No pneumothorax. No pleural effusion. Heart: Normal. No cardiomegaly. No pericardial effusion. Aorta: There is moderate atherosclerosis the thoracic aorta. The entire liver is visualized within the left lobe of the liver there is a bilobed benign appearing cyst measuring 4.5 cm. Lymph nodes: Unremarkable. No enlarged lymph nodes. Bones/joints: There few old-appearing minimal compression deformities lower thoracic spine as well as the mid thoracic spine there is a 3 mm calcified granuloma social tiny scar left upper lobe Soft tissues: Unremarkable. Gallbladder and bile ducts: There surgical clips in gallbladder fossa. Stomach and bowel: There few scattered diverticula markings left lung is most likely just scarring. There are no focal areas of consolidation. IMPRESSION: There is a mild amount of scarring geological scout to the lungs but no definite evidence of acute pneumonia. Dictated and Authenticated by: Garth Marks MD. Ordering:ALE Merida MD
[2018-06-28] MEDS: amLODIPine 5 MG TAB PO (17:38)
[2018-06-28] MEDS: Esomeprazole 20 MG CAPCR 40 MG PO (17:38)
[2018-06-28] MEDS: Pantoprazole 40 MG VIAL IVP (19:40)
[2018-06-28] MEDS: Melatonin 3 MG TAB PO (21:08)
[2018-06-29 00:11] VITALS: BP 125/63; PULSE 71; RESP 19; TEMP 36.7; O2SAT 95
[2018-06-29] MEDS: methylPREDNISolone SUCC 125 MG VIAL 80 MG IVP ×2 (03:07→11:59)
[2018-06-29 03:15] VITALS: BP 192/83; PULSE 57; RESP 20; TEMP 36.7; O2SAT 97
[2018-06-29] MEDS: Heparin 5,000 UNITS/ML VIAL 5000 UNITS SC ×3 (05:04→22:51)
[2018-06-29] MEDS: Acetaminophen 500 MG TAB 1000 MG PO (05:28)
[2018-06-29 07:55] VITALS: BP 169/67; PULSE 61; RESP 18; TEMP 36.8; O2SAT 96
[2018-06-29] MEDS: Normal Saline Flush 10 ML SYR IVP ×2 (08:59→20:34)
[2018-06-29] MEDS: Pantoprazole 40 MG VIAL IVP ×2 (08:59→20:33)
[2018-06-29] MEDS: Montelukast 10 MG TAB PO (09:00)
[2018-06-29] MEDS: Simvastatin 40 MG TAB 20 MG PO (09:00)
[2018-06-29] MEDS: guaiFENesin 600 MG TABCR PO ×2 (09:00→20:33)
[2018-06-29] MEDS: FLUoxetine 20 MG CAP PO (09:00)
[2018-06-29] MEDS: Potassium Chloride 10 MEQ TABCR PO (09:00)
[2018-06-29] MEDS: Benzonatate 200 MG CAP PO ×3 (09:00→20:33)
[2018-06-29] MEDS: amLODIPine 5 MG TAB PO (09:00)
[2018-06-29] MEDS: Insulin Aspart 300 UNITS/3 ML PEN SC ×3 (09:01→17:20)
[2018-06-29] MEDS: Normal Saline 1,000 ML 75 ML IV (10:13)
[2018-06-29] MEDS: Budesonide/Formoterol 160/4.5 6 GM 60 PUFF INH IH ×2 (11:18→20:33)
[2018-06-29 11:30] VITALS: BP 186/66; PULSE 60; RESP 18; TEMP 36.5; O2SAT 97
--- NOTE | 2018-06-29 12:42 | PDOC.CMPRO ---
Care Management Progress Note S/O-Met with Teri today. She is sitting up in bed, able to carry on conversation without being SOB. 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 She states she won't decide to drive if she does not feel like it. She has friends she can call to come get her and drive her car for her. Also explained that she could not drive within 4 hrs of taking her cough medicine, which she understood. 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 A-77 yo woman admitted with asthma, HTN, bronchitis. P-d/c home as per MD either via car driving self or via car with a friend.
--- NOTE | 2018-06-29 13:14 | CMPROGNOTE_ITS ---
Care Management Progress Note S/O-Met with Teri today. She is sitting up in bed, able to carry on conversation without being SOB. 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 She states she won't decide to drive if she does not feel like it. She has friends she can call to come get her and drive her car for her. Also explained that she could not drive within 4 hrs of taking her cough medicine, which she understood. 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 A-77 yo woman admitted with asthma, HTN, bronchitis. P-d/c home as per MD either via car driving self or via car with a friend.
[2018-06-29 14:44] LABS: Streptococcus Pneumoniae Ag, U Negative (Negative)
--- NOTE | 2018-06-29 14:58 | W.PM.PROGNOT ---
Date of Service Date of service: 06/29/18 Time of Service: 14:58 Assessment and Plan (1) Acute bacterial bronchitis: Current visit: Yes Status: Acute Failed azithromycin as an outpatient. Labs pending including pertussis PCR, legionella and strep pneumo antigens. Continues to show slow steady improvement clinically. Continue Levaquin, Symbicort, nebs. Continue antitussives, upgraded to Hycodan with some relief. Transition to oral steroids, decrease dose. (2) Asthma: Current visit: No Status: Chronic Treat as above. Will need outpatient follow-up. Qualifiers: Asthma severity: moderate Asthma persistence: persistent Asthma complication type: with acute exacerbation Qualified Code(s): J45.41 - Moderate persistent asthma with (acute) exacerbation (3) Essential hypertension: Current visit: No Status: Chronic Blood pressure elevated. KRISTI inhibitor and calcium channel josselyn on hold. Echocardiogram showed wall thickness increase in a pattern of mild LVH, systolic function was hyperdynamic, LVEF was 65-70%, no regional wall motion abnormalities, some parameters to suggest diastolic dysfunction. Continue to monitor blood pressure, continue PRN clonidine. Amlodipine added with some improvement. Possibly related to steroids, decrease steroids as above. Consider increasing amlodipine if blood pressure remains elevated. (4) Prediabetes: Current visit: No Status: Chronic Continue sliding scale insulin while on steroids. Continue carb counting diet. (5) DVT prophylaxis: Current visit: Yes Status: Acute Subcutaneous heparin. (6) Discharge planning issues: Current visit: Yes Status: Acute She is a full code. This case was discussed with Dr. Alanis who is in agreement Subjective Interval history since last seen: Teri continues to cough, her cough is not as harsh, she is producing small amounts of thick white/yellow sputum today. The Hycodan is helping with her cough. She feels overall mildly better today. She continues to experience shortness of breath with exertion, she continues to wheeze. She denies chest pain/pressure, palpitations. Her appetite is improving, she is eating and drinking and tolerating her diet without nausea, vomiting or diarrhea. She had a normal bowel movement today. She denies dysuria or hematuria. She endorses low back pain that she relates to sleeping in the hospital bed. She declines heat for her back. Exam Narrative Exam Narrative: General: Appears younger than stated age, skin is tanned. She is awake, alert and oriented. She is pleasant and cooperative. No shortness of breath while talking. HEENT: Normocephalic, atraumatic, mucous membranes moist. Neck: Supple, no JVD. Cardiovascular: Heart has regular rate and rhythm, no murmur appreciated. Respiratory: Respirations appear unlabored at rest. Occasional harsh cough noted. Rhonchi noted throughout. Gastrointestinal: Normoactive bowel sounds, abdomen soft, nontender on palpation, nondistended. Extremities: Well perfused, no clubbing, cyanosis or edema. Peripheral pulses palpable bilaterally. Objective Objective Clinical Data: Vital Signs Temperature 36.5 C 06/29/18 11:30 Temperature Source Tympanic 06/29/18 11:30 Pulse 60 06/29/18 11:30 Pulse Rhythm Regular 06/29/18 10:18 Respiratory Rate 18 06/29/18 11:30 Respiratory Effort Short of Breath 06/29/18 10:18 Respiratory Depth Normal 06/29/18 10:18 Respiratory Pattern Normal 06/29/18 10:18 Blood Pressure 186/66 H 06/29/18 11:30 Blood Pressure Position Sitting 06/25/18 17:19 Pulse Oximetry 97 06/29/18 11:30 Oxygen Delivery Method Room Air 06/29/18 11:30 Oxygen Flow Rate 0 06/29/18 11:30 Pain Level 0 06/29/18 03:15 Comment 06/29/18 03:15 Intake & Output 06/28/18 06/29/18 06/29/18 23:59 11:59 23:59 Intake Total 1390 / 2515 1568.75 / 1568.75 Output Total 400 / 400 Balance 990 / 2115 1568.75 / 1568.75 Weight 65.1 kg Intake: IV 1150 / 2150 978.75 / 978.75 Oral 240 / 365 590 / 590 Output: Urine 400 / 400 Other: Urine Color Yellow Yellow Urine Appearance Clear Clear Urine Odor Normal Comment pt voiding ad rebecca in bathroom; urine not assessed pt voiding ad rebecca in toilet; urine not assessed by RN. pt denies GI/ issues Stool Size Moderate Moderate Stool Characteristics Soft Soft Brown Formed Brown Voiding Methods Toilet Toilet Toilet Laboratory Results WBC 9.85 k/cumm (4.4-10.8) 06/28/18 07:06 RBC 4.34 m/cumm (4.00-5.20) 06/28/18 07:06 Hgb 12.9 g/dL (12.0-15.5) 06/28/18 07:06 Hct 39.6 % (36.0-46.0) 06/28/18 07:06 MCV 91.2 fL (80-95) 06/28/18 07:06 MCH 29.7 pg (27.0-33.0) 06/28/18 07:06 MCHC 32.6 g/dL (32.0-36.0) 06/28/18 07:06 RDW 13.9 % (11.7-14.6) 06/28/18 07:06 Plt Count 244 x1000/uL (130-400) 06/28/18 07:06 MPV 10.5 fL (8.0-11.0) 06/28/18 07:06 Immature Gran % 0.4 06/27/18 07:18 Neutrophils % 84.9 06/27/18 07:18 Lymphocytes % 9.7 06/27/18 07:18 Monocytes % 4.9 06/27/18 07:18 Eosinophils % 0.0 06/27/18 07:18 Basophils % 0.1 06/27/18 07:18 Absolute Neutrophils 7.66 k/cumm (1.2-6.7) H 06/27/18 07:18 Absolute Lymphocytes 0.88 k/cumm (1.2-3.4) L 06/27/18 07:18 Absolute Monocytes 0.44 k/cumm (0.11-0.7) 06/27/18 07:18 Absolute Eosinophils 0.00 k/cumm (0.0-0.7) 06/27/18 07:18 Absolute Basophils 0.01 k/cumm (0.0-0.2) 06/27/18 07:18 Sodium 139 mmol/L (136-145) 06/28/18 07:06 Potassium 3.9 mmol/L (3.5-5.1) 06/28/18 07:06 Chloride 105 mmol/L (98-107) 06/28/18 07:06 Carbon Dioxide 25.7 mmol/L (21.0-32.0) 06/28/18 07:06 Anion Gap 8.3 mmol/L (3-11) 06/28/18 07:06 BUN 30 mg/dL (7-18) H 06/28/18 07:06 Creatinine 0.87 mg/dL (0.55-1.02) 06/28/18 07:06 Estimated GFR/1.73 m2 >= 60.00 (mL/min/1.73m2) 06/28/18 07:06 Glucose 178 mg/dL (70-100) H 06/28/18 07:06 Lactate 3.1 mmol/l (0.6-1.4) H 06/25/18 21:10 Calcium 8.1 mg/dL (8.5-10.1) L 06/28/18 07:06 Magnesium 2.0 mg/dL (1.8-2.4) 06/27/18 07:18 Total Bilirubin 0.9 mg/dL (0.2-1.0) 06/26/18 07:29 AST 15 U/L (15-37) 06/26/18 07:29 ALT 24 U/L (12-78) 06/26/18 07:29 Alkaline Phosphatase 78 U/L (46-116) 06/26/18 07:29 Troponin I 0.02 ng/mL (0.00-0.06) 06/25/18 18:56 NT-Pro-B Natriuret Pep 595 pg/mL (-299) H 06/25/18 18:56 Total Protein 7.7 g/dL (6.4-8.2) 06/26/18 07:29 Albumin 4.2 g/dL (3.4-5.0) 06/26/18 07:29 Legionella Source (see note) 06/27/18 15:02 Legionella Reprt Status (see note) 06/27/18 15:02 Legionella Final Result (see note) 06/27/18 15:02
--- NOTE | 2018-06-29 15:34 | CHAPLAIN ---
Teri was resting in bed when I visited. She said she hasn't even been watching tv, she's just been resting. She is a member of the [employer] and her film technician, Rev. Dami Bernstein knows she is here. Teri has asked Dami, and family members, not to visit because she doesn't want them to get sick, she said.
[2018-06-29 16:32] VITALS: BP 156/67; PULSE 66; RESP 18; TEMP 36.6; O2SAT 92
[2018-06-29 19:26] VITALS: BP 143/66; PULSE 64; RESP 18; TEMP 37; O2SAT 92
[2018-06-29] MEDS: predniSONE 20 MG TAB 60 MG PO (20:33)
[2018-06-29] MEDS: Melatonin 3 MG TAB PO (22:51)
[2018-06-30] VITALS (7 sets, daily range): BP systolic 155–196; BP diastolic 64–94; PULSE 60–76; RESP 16–20; TEMP 36.3–36.9; O2SAT 94–98
[2018-06-30] MEDS: Heparin 5,000 UNITS/ML VIAL 5000 UNITS SC ×3 (06:11→22:45)
[2018-06-30 07:03] LABS: HCT 38.9 % (36.0-46.0); HGB 13.1 g/dL (12.0-15.5); Mean Corp. HGB Concentration 33.7 g/dL (32.0-36.0); Mean Corpuscular Hemoglobin 29.8 pg (27.0-33.0); Mean Corpuscular Volume 88.6 fL (80-95); Mean Platelet Volume 10.9 fL (8.0-11.0); Platelet Count 238 x1000/uL (130-400); RBC 4.39 m/cumm (4.00-5.20); RBC Distribution Width 13.4 % (11.7-14.6); White Blood Cell Count 8.16 k/cumm (4.4-10.8)
[2018-06-30 07:18] LABS: Anion Gap 10.1 mmol/L (3-11); BUN 31 mg/dL (7-18); CO2 25.9 mmol/L (21.0-32.0); CREATININE 0.94 mg/dL (0.55-1.02); Chloride 103 mmol/L (98-107); Glucose 217 mg/dL (70-100); Potassium 3.4 mmol/L (3.5-5.1); Sodium 139 mmol/L (136-145)
[2018-06-30] MEDS: Budesonide/Formoterol 160/4.5 6 GM 60 PUFF INH IH ×2 (08:04→19:47)
[2018-06-30] MEDS: FLUoxetine 20 MG CAP PO (08:51)
[2018-06-30] MEDS: amLODIPine 5 MG TAB 10 MG PO (08:51)
[2018-06-30] MEDS: guaiFENesin 600 MG TABCR PO ×2 (08:51→19:47)
[2018-06-30] MEDS: Montelukast 10 MG TAB PO (08:51)
[2018-06-30] MEDS: Benzonatate 200 MG CAP PO ×3 (08:51→19:47)
[2018-06-30] MEDS: predniSONE 20 MG TAB 60 MG PO (08:51)
[2018-06-30] MEDS: Potassium Chloride 10 MEQ TABCR PO (08:52)
[2018-06-30] MEDS: Simvastatin 40 MG TAB 20 MG PO (08:52)
[2018-06-30] MEDS: levoFLOXacin 500 MG TAB PO (08:52)
[2018-06-30] MEDS: Pantoprazole 40 MG VIAL IVP ×2 (08:52→19:48)
[2018-06-30] MEDS: Normal Saline Flush 10 ML SYR IVP ×2 (08:53→19:48)
[2018-06-30] MEDS: Insulin Aspart 300 UNITS/3 ML PEN SC ×3 (08:53→17:24)
[2018-06-30] MEDS: Potassium Chloride 20 MEQ TABCR 40 MEQ PO (11:57)
[2018-06-30 13:21] LABS: D-Dimer 220 ng/mlFEU (<500)
--- NOTE | 2018-06-30 14:23 | W.PM.PROGNOT ---
Date of Service Date of service: 06/30/18 Time of Service: 14:25 Assessment and Plan (1) Acute bacterial bronchitis: Current visit: Yes Status: Acute Failed azithromycin as an outpatient. Labs pending including pertussis PCR, legionella and strep pneumo antigens. Continues to show slow steady improvement clinically. Remains afebrile, no leukocytosis. D-Dimer assessed to rule out PE, D-Dimer normal, unlikely PE. Continue Levaquin, Symbicort, nebs. Continue antitussives, upgraded to Hycodan with some relief. Taper prednisone. (2) Asthma: Current visit: No Status: Chronic Treat as above. Will need outpatient follow-up with pulmonology. Qualifiers: Asthma severity: moderate Asthma persistence: persistent Asthma complication type: with acute exacerbation Qualified Code(s): J45.41 - Moderate persistent asthma with (acute) exacerbation (3) Essential hypertension: Current visit: No Status: Chronic Blood pressure elevated. She has not been on antihypertensive regimen at home. Echocardiogram showed wall thickness increase in a pattern of mild LVH, systolic function was hyperdynamic, LVEF was 65-70%, no regional wall motion abnormalities, some parameters to suggest diastolic dysfunction. Continue to monitor blood pressure. Amlodipine added with some improvement. Possibly related to steroids, decrease steroids as above. Amlodipine increased to 10mg/day. Continue to monitor blood pressure. (4) Prediabetes: Current visit: No Status: Chronic Continue sliding scale insulin while on steroids. Continue carb counting diet. (5) Hypokalemia: Current visit: Yes Status: Acute Replete and monitor. (6) Gastroesophageal reflux disease: Current visit: No Status: Chronic PPI increased and changed to IV as cough could possibly be related to GERD. Continue to PPI. (7) DVT prophylaxis: Current visit: Yes Status: Acute Subcutaneous heparin. (8) Discharge planning issues: Current visit: Yes Status: Acute She is a full code. This case was discussed with Dr. Calvo who is in agreement Subjective Interval history since last seen: Teri continues with a harsh, nonproductive cough. She reports some relief with Hycodan. She continues to feel significantly fatigued, she has mild shortness of breath with exertion, she feels that her wheezing has improved. She denies chest pain/pressure, palpitations. Her appetite is improving, she is eating and drinking and tolerating her diet without nausea, vomiting or diarrhea. She had some acid reflux last evening after eating, no acid reflux today. She denies dysuria or hematuria. She does not feel ready for discharge home today. Exam Narrative Exam Narrative: General: Appears younger than stated age, skin is tanned. She is awake, alert and oriented. Appears fatigued. She is pleasant and cooperative. No shortness of breath while talking. HEENT: Normocephalic, atraumatic, mucous membranes moist. Neck: Supple, no JVD. Cardiovascular: Heart has regular rate and rhythm, no murmur appreciated. Respiratory: Respirations appear unlabored at rest. Occasional harsh, nonproductive cough noted. Rhonchi noted throughout. Gastrointestinal: Normoactive bowel sounds, abdomen soft, nontender on palpation, nondistended. Extremities: Well perfused, no clubbing, cyanosis or edema. Peripheral pulses palpable bilaterally. Objective Objective Clinical Data: Abnormal lab results 06/30/18 Range/Units 06:25 Potassium 3.4 L (3.5-5.1) mmol/L BUN 31 H (7-18) mg/dL Glucose 217 H (70-100) mg/dL Calcium 8.0 L (8.5-10.1) mg/dL Vital Signs Temperature 36.9 C 06/30/18 09:40 Temperature Source Tympanic 06/30/18 09:40 Pulse 68 06/30/18 09:40 Pulse Rhythm Regular 06/29/18 20:30 Respiratory Rate 18 06/30/18 09:40 Respiratory Effort 06/29/18 20:30 Respiratory Depth Normal 06/29/18 20:30 Respiratory Pattern Normal 06/29/18 20:30 Blood Pressure 178/94 H 06/30/18 09:40 Blood Pressure Position Sitting 06/25/18 17:19 Pulse Oximetry 95 06/30/18 09:40 Oxygen Delivery Method Room Air 06/30/18 09:40 Oxygen Flow Rate 0 06/30/18 09:40 Pain Level 0 06/30/18 09:40 Comment 06/29/18 03:15 Intake & Output 06/29/18 06/30/18 06/30/18 23:59 11:59 23:59 Intake Total 811.25 / 2380.00 Output Total 300 / 300 Balance 511.25 / 2080.00 Weight 64.5 kg Intake: IV 451.25 / 1430.00 Oral 360 / 950 Output: Urine 300 / 300 Other: Urine Color Yellow Urine Appearance Clear Urine Odor Normal Comment pt voiding ad rebecca in toilet; urine not assessed by RN. pt denies GI/ issues Stool Size Moderate Stool Characteristics Soft Formed Brown Voiding Methods Toilet Laboratory Results WBC 8.16 k/cumm (4.4-10.8) 06/30/18 06:25 RBC 4.39 m/cumm (4.00-5.20) 06/30/18 06:25 Hgb 13.1 g/dL (12.0-15.5) 06/30/18 06:25 Hct 38.9 % (36.0-46.0) 06/30/18 06:25 MCV 88.6 fL (80-95) 06/30/18 06:25 MCH 29.8 pg (27.0-33.0) 06/30/18 06:25 MCHC 33.7 g/dL (32.0-36.0) 06/30/18 06:25 RDW 13.4 % (11.7-14.6) 06/30/18 06:25 Plt Count 238 x1000/uL (130-400) 06/30/18 06:25 MPV 10.9 fL (8.0-11.0) 06/30/18 06:25 Immature Gran % 0.4 06/27/18 07:18 Neutrophils % 84.9 06/27/18 07:18 Lymphocytes % 9.7 06/27/18 07:18 Monocytes % 4.9 06/27/18 07:18 Eosinophils % 0.0 06/27/18 07:18 Basophils % 0.1 06/27/18 07:18 Absolute Neutrophils 7.66 k/cumm (1.2-6.7) H 06/27/18 07:18 Absolute Lymphocytes 0.88 k/cumm (1.2-3.4) L 06/27/18 07:18 Absolute Monocytes 0.44 k/cumm (0.11-0.7) 06/27/18 07:18 Absolute Eosinophils 0.00 k/cumm (0.0-0.7) 06/27/18 07:18 Absolute Basophils 0.01 k/cumm (0.0-0.2) 06/27/18 07:18 D-Dimer 220 ng/mlFEU (<500) 06/30/18 12:35 Sodium 139 mmol/L (136-145) 06/30/18 06:25 Potassium 3.4 mmol/L (3.5-5.1) L 06/30/18 06:25 Chloride 103 mmol/L (98-107) 06/30/18 06:25 Carbon Dioxide 25.9 mmol/L (21.0-32.0) 06/30/18 06:25 Anion Gap 10.1 mmol/L (3-11) 06/30/18 06:25 BUN 31 mg/dL (7-18) H 06/30/18 06:25 Creatinine 0.94 mg/dL (0.55-1.02) 06/30/18 06:25 Estimated GFR/1.73 m2 57.90 (mL/min/1.73m2) 06/30/18 06:25 Glucose 217 mg/dL (70-100) H 06/30/18 06:25 Lactate 3.1 mmol/l (0.6-1.4) H 06/25/18 21:10 Calcium 8.0 mg/dL (8.5-10.1) L 06/30/18 06:25 Magnesium 2.0 mg/dL (1.8-2.4) 06/27/18 07:18 Total Bilirubin 0.9 mg/dL (0.2-1.0) 06/26/18 07:29 AST 15 U/L (15-37) 06/26/18 07:29 ALT 24 U/L (12-78) 06/26/18 07:29 Alkaline Phosphatase 78 U/L (46-116) 06/26/18 07:29 Troponin I 0.02 ng/mL (0.00-0.06) 06/25/18 18:56 NT-Pro-B Natriuret Pep 595 pg/mL (-299) H 06/25/18 18:56 Total Protein 7.7 g/dL (6.4-8.2) 06/26/18 07:29 Albumin 4.2 g/dL (3.4-5.0) 06/26/18 07:29 Legionella Source (see note) 06/27/18 15:02 Legionella Reprt Status (see note) 06/27/18 15:02 Legionella Final Result (see note) 06/27/18 15:02 Ur Strep pneumoniae Ag Negative (Negative) 06/27/18 15:02
--- NOTE | 2018-06-30 14:27 | PDOC.CMDIS ---
LACE Index Scoring Tool - Questions: Length of Stay (in days): 3 Acuity (Admit via E.D.?): Yes E.D. Visits: 4 - Answers: Total Score: 10 Risk of Readmission: High Risk Care Management Discharge Reason for Hospitalization: Asthma, Hypertension, Bronchitis Discharge Plan: Teri will discharge home when medically ready per MD. She will follow up with her PCP and plan of care as prescribed and transport herself via private vehicle. Patient/Family Education Needs: Review discharge insturctions, discuss Ask Me Three.
[2018-06-30] MEDS: Melatonin 3 MG TAB PO (22:45)
[2018-07-01 00:07] VITALS: BP 151/68; PULSE 58; RESP 16; TEMP 36.5; O2SAT 97
[2018-07-01] MEDS: Heparin 5,000 UNITS/ML VIAL 5000 UNITS SC (06:19)
[2018-07-01 07:35] VITALS: BP 180/88; PULSE 62; RESP 20; TEMP 36.6; O2SAT 98
[2018-07-01] MEDS: Budesonide/Formoterol 160/4.5 6 GM 60 PUFF INH IH (07:54)
[2018-07-01 07:55] VITALS: O2SAT 98
[2018-07-01] MEDS: Pantoprazole 40 MG VIAL IVP (08:31)
[2018-07-01] MEDS: Normal Saline Flush 10 ML SYR IVP (08:31)
[2018-07-01] MEDS: levoFLOXacin 500 MG TAB PO (08:32)
[2018-07-01] MEDS: Simvastatin 40 MG TAB 20 MG PO (08:32)
[2018-07-01] MEDS: Montelukast 10 MG TAB PO (08:32)
[2018-07-01] MEDS: amLODIPine 5 MG TAB 10 MG PO (08:32)
[2018-07-01] MEDS: Potassium Chloride 10 MEQ TABCR PO (08:32)
[2018-07-01] MEDS: predniSONE 20 MG TAB 60 MG PO (08:32)
[2018-07-01] MEDS: Benzonatate 200 MG CAP PO (08:32)
[2018-07-01] MEDS: FLUoxetine 20 MG CAP PO (08:32)
[2018-07-01] MEDS: guaiFENesin 600 MG TABCR PO (08:32)
[2018-07-01 08:56] LABS: Abs Immature Grans 0.49 k/cumm (0.0-0.09); HGB 14.1 g/dL (12.0-15.5); Mean Corp. HGB Concentration 34.4 g/dL (32.0-36.0); Mean Corpuscular Hemoglobin 30.3 pg (27.0-33.0); Mean Platelet Volume 10.6 fL (8.0-11.0); Platelet Count 224 x1000/uL (130-400); RBC 4.66 m/cumm (4.00-5.20); RBC Distribution Width 13.5 % (11.7-14.6); White Blood Cell Count 8.83 k/cumm (4.4-10.8)
[2018-07-01 09:01] LABS: Anion Gap 7.9 mmol/L (3-11); BUN 26 mg/dL (7-18); CO2 27.1 mmol/L (21.0-32.0); CREATININE 0.87 mg/dL (0.55-1.02); Calcium 8.1 mg/dL (8.5-10.1); Chloride 103 mmol/L (98-107); Glucose 193 mg/dL (70-100); Magnesium 2.2 mg/dL (1.8-2.4); Potassium 3.5 mmol/L (3.5-5.1); Sodium 138 mmol/L (136-145)
[2018-07-01 09:10] LABS: Absolute Eosinophil Count 0.09 k/cumm (0.0-0.7); Absolute Lymphocyte Count 2.12 k/cumm (1.2-3.4); Absolute Monocyte Count 0.79 k/cumm (0.11-0.7); Absolute Neutrophil Count 5.39 k/cumm (1.2-6.7)
[2018-07-01 09:11] LABS: Diff Comment Manual Differential; RBC Morphology Normal
[2018-07-01] MEDS: Albuterol/Ipratropium 3 ML UPD VIAL UPD (10:31)
[2018-07-01] MEDS: Potassium Chloride 20 MEQ TABCR 40 MEQ PO (11:00)
--- NOTE | 2018-07-01 11:23 | DSE_ITS ---
Date of service: 07/01/18 Time of Service: 11:16 DS: Diagnosis Discharge Diagnosis (1) Acute bacterial bronchitis: Status: Acute (2) Asthma: Status: Chronic (3) Essential hypertension: Status: Chronic (4) Prediabetes: Status: Chronic (5) Hypokalemia: Status: Acute (6) Gastroesophageal reflux disease: Status: Chronic (7) DVT prophylaxis: Status: Acute (8) Discharge planning issues: Status: Acute Discharge Plan Disposition Patient Disposition: HOME Condition: Improving Discharge Details Reason For Visit: ASTHMA, HYPERTENSION, BRONCHITIS Admit Date/Time: 06/27/18 16:20 Admit Provider: Gerardo Owens Attending Provider: Gerardo Owens Primary Care Provider: Kingsley Werner [facility] Hospital Course: This is a 77-year-old lady who has been for 2 years and very active with dancing every week with her girlfriends. She recently traveled to [place] to visit family and days after arriving she began to have respiratory symptoms with a cough which was persistent and severe with production of sputum. She visited an outpatient urgent care center and was placed on prednisone 50 mg daily and Zithromax for 5 days with both of these ending the day of this admission. She came to the emergency room for evaluation straight from a the airport in [place] because of her persistent cough. She has not had any fever, chills or rigors. She denies any significant shortness of breath on her usual respiratory care for asthma. She has had no syncope with her cough. She does have a history of hypertension but not on therapy presently and she is concerned about her elevated blood pressure presently. She denies any chest pain or palpitations. In the emergency room she was evaluated for possible pneumonia which was negative but she did have slightly elevated BNP and has had intermittent swelling over her lateral ankles though no significant edema presently. She has had no history of cardiovascular disease or stroke. 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 Her asthma is moderate persistent and usually well controlled. When she does have upper respiratory infection she does usually have a persistent cough such as this but usually it responds to Zithromax and prednisone. Today she is ready to go home. She does have a persistent cough which was explained that she will likely have for a couple of weeks if this is pertussis. She will be sent home on cough syrup for night time, 2 more days of levaquin, steroid taper, amlodipine for blood pressure in which she will need close follow up for by her primary. (1) Acute bacterial bronchitis: Failed azithromycin as an outpatient. Labs pending including pertussis PCR, legionella and strep pneumo antigens. Continues to show slow steady improvement clinically. Remains afebrile, no leukocytosis. D-Dimer assessed to rule out PE, D-Dimer normal, unlikely PE. Continue Levaquin, Symbicort, nebs. Continue antitussives, upgraded to Hycodan with some relief. Taper prednisone. (2) Asthma: Treat as above. Will need outpatient follow-up with pulmonology. Qualifiers: Asthma severity: moderate Asthma persistence: persistent Asthma complication type: with acute exacerbation Qualified Code(s): J45.41 - Moderate persistent asthma with (acute) exacerbation (3) Essential hypertension: Blood pressure elevated. She has not been on antihypertensive regimen at home. Echocardiogram showed wall thickness increase in a pattern of mild LVH, systolic function was hyperdynamic, LVEF was 65-70%, no regional wall motion abnormalities, some parameters to suggest diastolic dysfunction. Continue to monitor blood pressure. Amlodipine added with some improvement. Possibly related to steroids, decrease steroids as above. Amlodipine increased to 10mg/day. Continue to monitor blood pressure. (4) Prediabetes: Continue sliding scale insulin while on steroids. Continue carb counting diet. (5) Hypokalemia: Replete and monitor. (6) Gastroesophageal reflux disease: PPI increased and changed to IV as cough could possibly be related to GERD. Continue to PPI. (7) DVT prophylaxis: Subcutaneous heparin. (8) Discharge planning issues: She is a full code. Home Meds and New Rx's Prescriptions: New benzonatate 200 mg Capsule 200 mg PO TID Qty: 30 RF: 0 amlodipine 5 mg Tablet 10 mg PO DAILY Qty: 30 RF: 0 levofloxacin [Levaquin] 500 mg Tablet 500 mg PO QAM Qty: 2 RF: 0 hydrocodone-chlorpheniramine 10-8 mg/5 mL Suspension,Extended Rel 12 Hr 5 ml PO BID Qty: 50 RF: 0 guaifenesin [Mucinex] 600 mg Tablet Extended Release 12hr 600 mg PO BID Qty: 30 RF: 0 prednisone 10 mg tablet 10 mg PO DAILY Qty: 59 RF: 0 Continued calcium carbonate-vitamin D3 [Caltrate with Vitamin D3] 1 EACH tablet 1 ea PO BID RF: 0 esomeprazole magnesium [Nexium] 40 MG capsule,delayed release(DR/EC) 20 mg PO BID Qty: 180 RF: 3 albuterol sulfate [ProAir HFA] 8.5 GM HFA aerosol inhaler 2 puff Inhalation QID PRNQty: 3 RF: 4 cholecalciferol (vitamin D3) 2,000 UNIT tablet 2,000 unit PO DAILY RF: 0 fluoxetine [Prozac] 20 mg capsule 20 mg PO DAILY Qty: 90 RF: 4 montelukast [Singulair] 10 mg tablet 10 mg PO DAILY Qty: 90 RF: 4 simvastatin [Zocor] 40 mg tablet 40 mg PO DAILY Qty: 90 RF: 4 fluticasone propionate [Flonase] 16 GM spray,suspension 2 spry NS DAILY PRNRF: 0 acetaminophen [Mapap Extra Strength] 500 MG tablet 1,000 mg PO PRN PRNRF: 0 fluticasone propion-salmeterol [Advair Diskus] 250-50 mcg/dose Blister With Device 1 puff Inhalation PRN PRNRF: 0 ibuprofen [Advil] 200 mg Tablet 600 mg PO Q6H PRN PRNRF: 0 Discharge Instructions Instructions: Acute Bronchitis (GEN), Pertussis (GEN), Chronic Hypertension (GEN), DASH Eating Plan (GEN) Additional Instructions: Follow up with your primary provider as scheduled. Take all medications as prescribed. Follow up with a Pulmonary Doctor. Monitor your blood pressure and follow up with your primary regarding any blood pressure issues or changes. Follow the DASH diet for high blood pressure, limit salt intake. Exercise regularly. You may have a cough for weeks. If it worsens, you have chest pain, shortness of breath, bloody mucus, fevers, chills or severe back pain go to the emergency room immediately. Stand Alone Forms: Nursing Discharge Form Referrals: Kingsley Werner MD [Primary Care Provider] - 07/04/18 10:40 am Activity:: Activity as Tolerated Equipment/Supplies:: No Equipment Needed Diet:: Low Sodium Discharge Orders Discharge Orders: Discharge Order (Routine); Ordered 07/01/18 Ordered By: Yessenia Rosario Exam Narrative Exam Narrative: General: Appears younger than stated age, skin is tanned. She is awake, alert and oriented. Appears energized today. She is pleasant and cooperative. No shortness of breath while talking. HEENT: Normocephalic, atraumatic, mucous membranes moist. Neck: Supple, no JVD. Cardiovascular: Heart has regular rate and rhythm, no murmur appreciated. Respiratory: Respirations appear unlabored at rest. Occasional harsh, nonproductive cough noted. Rhonchi noted throughout with occasional scattered wheezes. Gastrointestinal: Normoactive bowel sounds, abdomen soft, nontender on palpation, nondistended. Extremities: Well perfused, no clubbing, cyanosis or edema. Peripheral pulses palpable bilaterally. DS: Data Vitals/I&O Vitals and I&O: Vital Signs Temperature 36.6 C 07/01/18 07:35 Temperature Source Tympanic 07/01/18 07:35 Pulse 62 07/01/18 07:35 Pulse Rhythm Regular 06/30/18 19:45 Respiratory Rate 20 07/01/18 07:35 Respiratory Effort Non-Labored 06/30/18 19:45 Respiratory Depth Normal 06/30/18 19:45 Respiratory Pattern Normal 06/30/18 19:45 Blood Pressure 180/88 H 07/01/18 07:35 Blood Pressure Position Sitting 06/25/18 17:19 Pulse Oximetry 98 07/01/18 07:35 Oxygen Delivery Method Room Air 07/01/18 07:35 Oxygen Flow Rate 0 07/01/18 07:35 Pain Level 0 07/01/18 07:35 Comment 06/29/18 03:15 Intake & Output 06/30/18 06/30/18 07/01/18 11:59 23:59 11:59 Intake Total 810 / 2100 1290 / 2100 Balance 810 / 2100 1290 / 2100 Weight 64.5 kg 64.7 kg Intake: IV Oral 790 / 0 1270 / 2060 Other: Urine Color Yellow Urine Appearance Clear Urine Odor None Comment Void multiple times in the toilet throughout the day. Urine characteristics per pt. report. Stool Size Moderate Stool Characteristics Soft Formed Brown Voiding Methods Toilet Completed studies during hospitalization [Text1]: Exam(s) a RAD:XR chest 2V PA & lateral SYMPTOMS/DIAGNOSIS: COUGH, SHORTNESS OF BREATH PA AND LATERAL CHEST: Comparison is made with [id number]. Mild left sided pulmonary scarring is again noted. No acute infiltrate, effusion or pulmonary edema is seen. Surgical clips are again noted in the right upper quadrant. There is stable mild mid and lower thoracic compression fractures. IMPRESSION: No acute abnormality. EXAM: XR Chest, 2 Views EXAM DATE/TIME: 06/25/2018 7:40 PM CLINICAL HISTORY: 77 years old, female; Signs and symptoms; Cough TECHNIQUE: Imaging protocol: XR of the chest, 2 views. COMPARISON: CR XR CHEST 2V PA LATERAL 04/16/2018 3:00 PM FINDINGS: Lungs: Lungs are adequately inflated and symmetric. No focal consolidation or pulmonary edema. Pleural space: No pleural effusion. No pneumothorax. Heart/Mediastinum: Cardiomediastinal contours within normal limits. Upper abdomen: Cholecystectomy clips are seen within the right upper quadrant. Bones/joints: Lateral sideplate and internal screw fixation partially visualized of the bilateral proximal humeri. No acute osseous finding. Soft tissues: No focal soft tissue abnormailty. IMPRESSION: No acute cardiopulmonary finding. Date of study: 06/27/2018 Transthoracic Echocardiography M-mode, complete 2D, complete spectral Doppler, and color Doppler *STUDY CONCLUSIONS* Summary: 1. Left ventricle: The cavity size was normal. Wall thickness was increased in a pattern of mild LVH. Systolic function was hyperdynamic. The estimated ejection fraction was 65-70%. Wall motion was normal; there were no regional wall motion abnormalities. Some parameters suggest diastolic dysfunction. 2. Mitral valve: There was mild regurgitation. 3. Right ventricle: The cavity size was normal. Wall thickness was normal. Systolic function was normal. 4. Inferior vena cava: The vessel was normal in size. The respirophasic diameter changes were in the normal range (greater than or equal to 50%). 5. Pericardium, extracardiac: A small pericardial effusion was identified anterior to the heart. The fluid contained focal strands.There was no evidence of hemodynamic compromise. Anterior effusion dimension: 0.5cm. CLINICAL HISTORY: 77 years old, female; Signs and symptoms; Other: Continued harsh cough, wheezing, SOB, fatigue; Patient HX: Cough x 10 days. Recent plane flight to [place]. Productive cough TECHNIQUE: Imaging protocol: Axial computed tomography images of the chest without intravenous contrast. Radiation optimization: All CT scans at this facility use at least one of these dose optimization techniques: automated exposure control; mA and/or kV adjustment per patient size (includes targeted exams where dose is matched to clinical indication); or iterative reconstruction. COMPARISON: CT CHEST HIGH RESOLUTION 02/13/2014 5:46 PM FINDINGS: Lungs: See Stomach And Bowel Finding. Pleural space: Normal. No pneumothorax. No pleural effusion. Heart: Normal. No cardiomegaly. No pericardial effusion. Aorta: There is moderate atherosclerosis the thoracic aorta. The entire liver is visualized within the left lobe of the liver there is a bilobed benign appearing cyst measuring 4.5 cm. Lymph nodes: Unremarkable. No enlarged lymph nodes. Bones/joints: There few old-appearing minimal compression deformities lower thoracic spine as well as the mid thoracic spine there is a 3 mm calcified granuloma social tiny scar left upper lobe Soft tissues: Unremarkable. Gallbladder and bile ducts: There surgical clips in gallbladder fossa. Stomach and bowel: There few scattered diverticula markings left lung is most likely just scarring. There are no focal areas of consolidation. IMPRESSION: There is a mild amount of scarring animal care taker to the lungs but no definite evidence of acute pneumonia. Labs on day of discharge: Labs from last 24 hours 07/01/18 07/01/18 06/30/18 08:46 08:46 12:35 WBC 8.83 RBC 4.66 Hgb 14.1 Hct 41.0 MCV 88.0 MCH 30.3 MCHC 34.4 RDW 13.5 Plt Count 224 MPV 10.6 Immature Gran % See Differential Neutrophils % 58.0 Band Neutrophils % 3.0 Lymphocytes % 24.0 Monocytes % 9.0 Eosinophils % 1.0 Basophils % 0.0 Metamyelocytes % 3.0 Myelocytes % 2.0 Absolute Neutrophils 5.39 Absolute Lymphocytes 2.12 Absolute Monocytes 0.79 H Absolute Eosinophils 0.09 Absolute Basophils 0.00 Differential Comment Manual differential RBC Morphology Normal D-Dimer 220 Sodium 138 Potassium 3.5 Chloride 103 Carbon Dioxide 27.1 Anion Gap 7.9 BUN 26 H Creatinine 0.87 Estimated GFR/1.73 m2 >= 60.00 Glucose 193 H Calcium 8.1 L Magnesium 2.2 PFSH Medical History Asthma (Chronic) GERD (gastroesophageal reflux disease) (Chronic) Gastroparesis (Chronic) HTN (hypertension) (Chronic) Hypercholesterolemia (Chronic) Osteoarthritis (Chronic) Arthritis of left knee (Resolved) Surgical History Arthroscopy, Shoulder Biopsy of breast (~2005) Cholecystectomy Extraction of cataract FX ARM (02/15/14) Hysterectomy, Laproscopic Family History Mother Diabetes Essential hypertension Depression Heart disease Hyperlipidemia Father No problems noted. Brother Diabetes Essential hypertension Hyperlipidemia Neoplasm Grandfather Diabetes Essential hypertension Grandfather Essential hypertension Heart disease Hyperlipidemia Grandmother Essential hypertension Neoplasm Stroke Grandmother Diabetes Blood disease Neoplasm FAMILY HISTORY Myocardial infarction Son Substance abuse Depression Hyperlipidemia Daughter Diabetes Depression Hyperlipidemia Asthma Social History Smoking/Tobacco Use Status: Never Alcohol Intake: current Alcohol Intake frequency: holidays/special occasions only Alcohol type: hard liquor Drug use: Never Substance use type: does not use Do you feel safe in your relationship?: Yes
[2018-07-01 11:40] VITALS: BP 130/74; PULSE 76; RESP 18; TEMP 37.1; O2SAT 97
[2018-07-01] MEDS: Insulin Aspart 300 UNITS/3 ML PEN SC (12:08)
[2018-07-03 08:49] LABS: B.holmesii DNA Not Detected; B.parapertussis DNA Not Detected; B.pertussis DNA Not Detected
[2018-07-05 12:05] LABS: B.parapertussis NOT recovered; B.pertussis NOT recovered
== END 2018-07-01 13:05 | disposition home or self-care (01) | DRG 202 ==
LOC: ER 20:44 → MS 21:25
PROVIDERS: Nurse Practitioner; Nurse Practitioner Family; Admitting Provider Family Medicine; Emergency Provider Student in an Organized Health Care Education/Training Program; PCP Family Medicine; Visit Provider Internal Medicine
DX: J20.8 Acute bronchitis due to other specified organisms (principal); J45.41 Moderate persistent asthma with (acute) exacerbation; B96.89 Other specified bacterial agents as the cause of diseases classified elsewhere; I10 Essential (primary) hypertension; J98.8 Other specified respiratory disorders; R79.89 Other specified abnormal findings of blood chemistry; R73.03 Prediabetes; E87.6 Hypokalemia; K21.9 Gastro-esophageal reflux disease without esophagitis; I34.0 Nonrheumatic mitral (valve) insufficiency; I51.7 Cardiomegaly
CPT/HCPCS: 36410; 36415; 71250; 80048; 80053; 85027; 87040; 87449; 87798; 93005; 93306; 94640; 99220; 99232; 99239; 99285; 71046; 83605; 83735; 83880; 84484; 85025; 85379; 87450; 87581; 93010; G0378; J1644; J1956; J2930; J3490; J7512; J7613; J7620

== ENCOUNTER → 2018-07-19 14:47 | Outpatient (BNVA) | payer MEDICARE, SELFPAY | PROVIDERS: PCP Family Medicine; Visit Provider Nurse Practitioner Gerontology | DX: N89.8 Other specified noninflammatory disorders of vagina (principal) | CPT/HCPCS: 99213 ==

== ENCOUNTER → 2018-07-24 11:12 | Outpatient (BNVA) | payer MEDICARE, SELFPAY | PROVIDERS: PCP Family Medicine; Visit Provider Nurse Practitioner Gerontology | DX: I10 Essential (primary) hypertension; N89.8 Other specified noninflammatory disorders of vagina | CPT/HCPCS: 99213 ==

== ENCOUNTER 2018-09-28 07:38 | Outpatient (CLI) | payer MEDICARE, SELFPAY ==
[2018-09-28 07:45] VITALS: BP 120/65; PULSE 63; RESP 20; TEMP 36.5; O2SAT 98
[2018-09-28] MEDS: fentaNYL 100 MCG/2 ML VIAL IVP ×2 (08:21→08:24)
[2018-09-28] MEDS: Midazolam 2 MG/2 ML VIAL IVP (08:21)
[2018-09-28] MEDS: Lactated Ringers 1,000 ML 80 ML IV (08:22)
[2018-09-28] MEDS: Lidocaine 2% Pres-Free 5 ML VIAL IJ (08:33)
[2018-09-28 08:46] VITALS: BP 152/59; PULSE 59; RESP 11; O2SAT 98
[2018-09-28] MEDS: Bupivacaine 0.5% Pres-Free 10 ML VIAL IJ (08:49)
[2018-09-28] MEDS: methylPREDNISolone ACETATE 40 MG/ML VIAL IJ (08:49)
--- NOTE | 2018-09-28 08:49 | DI.RAD_ITS ---
SYMPTOM/DIAGNOSIS: LUMBAR SPONDYLOSIS C-ARM FLUOROSCOPY LUMBAR SPINE: Fluoroscopy Time: 46 sec 7.04 mGy Fluoroscopy was provided for guidance of lumbar spine Pain Clinic injection. Please see procedure note for details.
--- NOTE | 2018-09-28 08:49 | PDOC.PAIN ---
Pain Clinic Procedure Note Current Active Problems Problem Status Onset Spondylosis of lumbosacral region without myelopathy or radiculopathy LUMBAR/SACRAL MEDIAL BRANCH RADIOFREQUENCY WITH THE COOLIEF MACHINE SHANTAL TA has been referred to the [facility] for radiofrequency treatment of chronic axial back pain. SHANTAL has had long standing back pain thought to be facet joint generated and which has been refractory to other therapies. Local anesthetic medial branch blocks or intra-articular facet joint injections resulted in SHANTAL reporting reduction of the usual axial component of pain for at least the duration of the local anesthetic effect. COMMENTS:She had >6 months of relief with her last left L3-L5DR RFA on 09/20/17. I decided to add the left S1 lateral branch to further ablate the sensation to the left l5-S1 facet joint. Patient was interviewed and the medical record reviewed. There were no medical, pharmacologic, radiographic or other structural contraindications to attempting fluoroscopically guided radiofrequency treatment. Risks and expected side effects as well as potential benefit of the procedure were reviewed and voiced concerns addressed. The printed consent form was signed and witnessed. Standard time-out procedure was performed. Patient was placed in the prone position on the fluoroscopy table and automated blood pressure cuff and pulse oximeter applied. The skin entry points for approaching the anatomic target points of the segmental medial branches of left L3-L5DR and the left S1 lateral branch were identified with fluoroscopy and marked. Following thorough Chlorhexadine preparation of the skin and draping and 1% lidocaine infiltration of the skin entry points and subcutaneous tissues, a single 18 guage curved 10 cm 10mm active tip radiofrequency cannula was placed under fluoroscopic guidance along or across the anatomic course of each respective segmental medial branch. Each placement was stimulated at 50Hz and les then 0.5V for medial branch sensory localization and the at 2Hz and up to 3 times the sensory voltage without any evidence of distal myotomal stimulation. 1cc of 2% lidocaine was injected at each site. At each placement a continuous mode radiofrequency treatment was done at 80 degrees C for 90secs. This radiofrequency treatment should result in the denervation of the left L4-L5 and L5-S1 FACET JOINTS. A total of 2 facets were expected to be denervated from today's treatment. Vital signs were stable throughout the procedure and were as recorded in the docflowsheet by the nursing staff. If given, dosages of intravenous drugs for anxiolysis and analgesia were documented in the Medication Administration Record (MAR). Follow up plans and appointments were discussed. Post procedure instruction was given as documented in the nursing documentation and having met discharge criteria, SHANTAL was discharged from the [facility]. COMMENTS: If she has at least 6 months of pain relief, she can have this repeated without repeating the LMBBs. CC: Kingsley Werner MD
== END 2018-09-28 07:58 ==
PROVIDERS: PCP Family Medicine; Visit Provider Preventive Medicine Occupational Medicine
DX: M47.817 Spondylosis without myelopathy or radiculopathy, lumbosacral region (principal)
CPT/HCPCS: 64636; 64635; 72100; J1030; J2250; J3010

== ENCOUNTER 2019-01-05 14:35 | Outpatient (CLI) | payer MEDICARE, SELFPAY ==
--- NOTE | 2019-01-05 14:40 | DI.RAD_ITS ---
EXAM: XR CHEST 2V PA LATERAL INDICATION: pleuritic chest pain left side, R07.81 PLEURODYNIA. COMPARISON: No exams were available for comparison TECHNIQUE: 2D digital imaging was performed. FINDINGS: The cardiac and mediastinal contours have normal appearance. The lungs are clear with the exception of mild linear scarring near the left hilum. No infiltrate, effusion or pneumothorax is seen. No r ib fractures are visible. There is a stable mild mid thoracic compression fracture. Surgical clips are noted in the right upper quadrant. IMPRESSION: No acute abnormality.
== END 2019-01-05 14:55 ==
PROVIDERS: PCP Family Medicine; Visit Provider Family Medicine
DX: R07.81 Pleurodynia (principal); J98.4 Other disorders of lung
CPT/HCPCS: 71046

== ENCOUNTER 2019-03-30 15:03 | Emergency (ER) | payer MEDICARE, SELFPAY ==
--- NOTE | 2019-03-30 15:05 | W.ED.GENAD ---
Discharge Plan Disposition Patient Disposition: HOME Condition: Improving Discharge Details Chief Complaint: GenMedical Clinical Impression: Cough, Dizziness, Flu-like symptoms Primary Care Provider: Kingsley Werner ED Provider: Flory Ayoub Home Meds and New Rx's Prescriptions: New amoxicillin-pot clavulanate [Augmentin] 875-125 mg tablet 1 tab PO BID Qty: 14 RF: 0 meclizine 25 mg tablet 25 mg PO TID PRN (Reason: dizziness) Qty: 10 RF: 0 ondansetron 4 mg tablet,disintegrating 4 mg PO Q6H PRN (Reason: nausea and vomiting) Qty: 10 RF: 0 Continued fluoxetine [Prozac] 20 mg capsule 20 mg PO DAILY Qty: 90 RF: 4 doxycycline hyclate 100 mg capsule 100 mg PO BID Qty: 14 RF: 0 calcium carbonate-vitamin D3 [Caltrate with Vitamin D3] 1 EACH tablet 1 ea PO BID RF: 0 esomeprazole magnesium [Nexium] 40 MG capsule,delayed release(DR/EC) 20 mg PO BID Qty: 180 RF: 3 albuterol sulfate [ProAir HFA] 8.5 GM HFA aerosol inhaler 2 puff Inhalation QID PRNQty: 3 RF: 4 cholecalciferol (vitamin D3) 2,000 UNIT tablet 2,000 unit PO DAILY RF: 0 montelukast [Singulair] 10 mg tablet 10 mg PO DAILY Qty: 90 RF: 4 simvastatin [Zocor] 40 mg tablet 40 mg PO DAILY Qty: 90 RF: 4 metoprolol tartrate 25 mg tablet 25 mg PO BID Qty: 180 RF: 3 fluticasone propionate [Flonase] 16 GM spray,suspension 2 spry NS DAILY PRNRF: 0 acetaminophen [Mapap Extra Strength] 500 MG tablet 1,000 mg PO PRN PRNRF: 0 fluticasone propion-salmeterol [Advair Diskus] 250-50 mcg/dose Blister With Device 1 puff Inhalation PRN PRNRF: 0 ibuprofen [Advil] 200 mg Tablet 600 mg PO Q6H PRN PRNRF: 0 Discharge Instructions Instructions: Vertigo (ED), Influenza (ED) Additional Instructions: Your imaging and your laboratory evaluation is very reassuring here today. However, your symptoms are most concerning for a flulike illness. Please encourage water intake. You may use Tylenol and/or ibuprofen as needed for discomfort or fevers. However, please do not take any ibuprofen or other anti-inflammatory (ie. Aleve, Motrin) until tomorrow morning. You may use the meclizine as prescribed should your vertigo recur. If you develop nausea once again, please use the Zofran as prescribed. If you develop fever/chills, difficulty breathing, shortness of breath, inability stay hydrated or other new/worsening symptom please seek care urgently once again. Please follow-up with your primary care next week for reevaluation. Antibiotics have been prescribed in the event your sinus pain persist. At this time, your sinus pain is likely from the virus making you sick and antibiotics will not be of benefit. However, if over the next 3 to 4 days, your symptoms are not improving you may begin the antibiotics as prescribed. If you begin them, please take the entire course. Referrals: Kingsley Werner MD [Primary Care Provider] - Medical Decision Making <Hermelindo Moreno DO - Last Filed: 03/30/19 15:41> 78-year-old female with a past medical history of psittacosis, high cholesterol, hypertension, GERD, asthma who presents today for evaluation of cough for the last 5 days, mild productive sputum which is nonbloody, fatigue, malaise, mild dizziness over the past 24 to 48 hours as well. Physical exam demonstrates normal neurologic assessment, she does have some horizontal nystagmus, that is unidirectional. Test of skew is negative. No evidence of a central cerebellar event. She denies any recent trauma. No clinical signs of meningitis with no nuchal rigidity, or neck stiffness. Headache is not the worst headache of her life. Signs and symptoms are certainly concerning for mild illness, although she got her influenza vaccine she certainly demonstrates symptoms concerning for influenza. She also appears mildly dehydrated. We will gently rehydrate, give meclizine for dizziness, chest x-ray to rule out pneumonia, and CT scan to rule out acute intracranial pathology which I feel is very unlikely. Symptoms are clinically inconsistent with meningitis. Also clinically inconsistent with significant encephalitis or cardiac etiology at this time however out of an abundance of precaution and secondary to her age we will get a screening EKG and troponin. Vital signs are otherwise stable. Case will be signed out to my colleague Flory Mondragon for reassessment and follow-up on labs and imaging. EKG 15: 38 Rate 68, VT 136, QTc 449, QRS 140, sinus rhythm with a right bundle branch block, no significant ST elevations or depressions, EKG from 01/31/2018 demonstrates notably similar findings, with no significant acute changes. No evidence of STEMI. <ALEX Kenney - Last Filed: 03/30/19 23:35> Care was transitioned myself from Dr. Moreno with imaging and labs pending. Please see his initial note and exam for assessment. Chest x-ray was reviewed by radiologist: FINDINGS: Lungs: Unremarkable. No consolidation. Pleural space: Unremarkable. No pleural effusion. No pneumothorax. Heart/Mediastinum: Unremarkable. No cardiomegaly. Bones/joints: Stable bilateral humeral fixation. No acute abnormality or aggressive osseous lesion. Subtle chronic superior endplate compression injury at a mid thoracic vertebra is stable. IMPRESSION: Stable examination without acute thoracic pathology. FINDINGS: Brain: Normal. No hemorrhage. Unremarkable white matter. No mass effect. Ventricles: Normal. No ventriculomegaly. Bones/joints: Unremarkable. No acute fracture. Sinuses: Visualized sinuses are unremarkable. No fluid levels. Mastoid air cells: Visualized mastoid air cells are well aerated. Orbits: There have been bilateral intraocular lens replacements. Soft tissues: Unremarkable. IMPRESSION: Negative for acute intracranial pathology. Labs reviewed. No leukocytosis. Patient's not anemic. No significant electrolyte abnormalities. Patient was unable to give a urine but does not want to stay to have one completed as she does not have any urinary symptoms. After patient returned CT, she did receive IV Toradol and is feeling much improved and is requesting discharge. Her rapid flu testing was negative. However, based on history her symptoms are most consistent with flulike illness. She is out of the window for treatment. I did encourage hydration. Her primary concern at this time is sinus discomfort. We discussed that this is likely viral in nature and would not require antibiotics given the length of symptoms however, will give a prescription for antibiotics and a watch and wait approach. We will also prescribe meclizine and Zofran. She did have full resolution of for vertiginous symptoms. She was given strict return precautions. Advise follow-up with primary care next week for reevaluation. All of her questions or concerns were addressed and she is in agreement this plan. HPI <Hermelindo R [place], DO - Last Filed: 03/30/19 15:41> General Date/Time Provider Initiated Documentation: 03/30/19 15:04. HPI Narrative: 78-year-old female with a past medical history of psittacosis, high cholesterol, hypertension, GERD, asthma who presents today for evaluation of cough for the last 5 days, mild productive sputum, nonbloody, fatigue, malaise, mild dizziness over the past 24 to 48 hours as well. She is not been eating or drinking much, however she denies any abdominal pain nausea or vomiting. She does admit to a very small amount of reproducible chest pain on the right chest only when she coughs, she denies any chest tightness, chest heaviness, shortness of breath, recent long trips, surgeries or procedures. She denies any history of cardiac disease. She denies any arm pain, neck pain shoulder pain. She denies any tearing sensation in her chest. She does admit to mild to moderate headache which is atypical for her, but it is not the worst headache of her life. She denies any significant neck pain or neck stiffness. She denies any recent trauma. Related Data Home Medications Medication Instructions Recorded Confirmed calcium carbonate-vitamin D3 1 ea PO BID tab 08/23/12 03/30/19 [Caltrate with Vitamin D3] esomeprazole magnesium [Nexium] 20 mg PO BID #180 tab-cap 08/31/12 03/30/19 fluticasone propionate [Flonase] 2 spry NS DAILY PRN 06/07/13 03/30/19 albuterol sulfate [ProAir HFA] 2 puff INHALATION QID PRN #3 ea 03/21/17 03/30/19 cholecalciferol (vitamin D3) 2,000 unit PO DAILY 07/18/17 03/30/19 acetaminophen [Mapap Extra 1,000 mg PO PRN PRN 08/24/17 03/30/19 Strength] fluticasone propion-salmeterol 1 puff INHALATION PRN PRN 12/09/17 03/30/19 [Advair Diskus] ibuprofen [Advil] 600 mg PO Q6H PRN PRN 01/31/18 03/30/19 montelukast 10 mg tablet 10 mg PO DAILY #90 tab 05/18/18 03/30/19 simvastatin 40 mg tablet 40 mg PO DAILY #90 tab-cap 05/18/18 03/30/19 metoprolol tartrate 25 mg tablet 25 mg PO BID #180 tab 10/18/18 03/30/19 fluoxetine 20 mg capsule 20 mg PO DAILY #90 cap 02/09/19 03/30/19 doxycycline hyclate 100 mg capsule 100 mg PO BID #14 cap 03/14/19 03/30/19 amoxicillin-pot clavulanate 1 tab PO BID #14 tab 03/30/19 [Augmentin] meclizine 25 mg PO TID PRN #10 tab 03/30/19 ondansetron 4 mg PO Q6H PRN #10 tab 03/30/19 Previous Rx's Medication Instructions Recorded montelukast 10 mg tablet 10 mg PO DAILY #90 tab 05/18/18 simvastatin 40 mg tablet 40 mg PO DAILY #90 tab-cap 05/18/18 metoprolol tartrate 25 mg tablet 25 mg PO BID #180 tab 10/18/18 fluoxetine 20 mg capsule 20 mg PO DAILY #90 cap 02/09/19 doxycycline hyclate 100 mg capsule 100 mg PO BID #14 cap 03/14/19 amoxicillin-pot clavulanate 1 tab PO BID #14 tab 03/30/19 [Augmentin] meclizine 25 mg PO TID PRN #10 tab 03/30/19 ondansetron 4 mg PO Q6H PRN #10 tab 03/30/19 Allergies Allergy/AdvReac Type Severity Reaction Status Date / Time adhesive Allergy Severe SKIN RASH Verified 03/30/19 15:26 Sulfa (Sulfonamide Allergy Intermediate ITCHING Verified 03/30/19 15:26 Antibiotics) losartan Allergy Unknown SWELLING, Verified 03/30/19 15:26 ITCHING hydrocodone AdvReac Itching Verified 03/30/19 15:26 with high doses General CLAUDIA: 3 Review of Systems <Hermelindo Moreno DO - Last Filed: 03/30/19 15:41> All systems reviewed & are unremarkable except as noted in HPI and below PFSH <Hermelindo Moreno DO - Last Filed: 03/30/19 15:41> Medical History (Updated 02/09/19 @ 07:41 by Kingsley Werner MD) Acute bacterial bronchitis (Inactive) Arthritis of left knee (Resolved) s/p total knee Asthma (Chronic) Gastroparesis (Chronic) GERD (gastroesophageal reflux disease) (Chronic) H/O: pneumonia (Inactive) Headache (Inactive) HTN (hypertension) (Chronic) Hypercholesterolemia (Chronic) Osteoarthritis (Chronic) Peptic ulcer (Inactive) Unilateral inguinal hernia (Inactive) Surgical History (Updated 01/05/19 @ 14:24 by Kingsley Werner MD) Arthroscopy, Shoulder LEFT Biopsy of breast (~2005) LEFT Cholecystectomy Extraction of cataract 06/11/13; RIGHT 06/26/13; LEFT FX ARM (02/15/14) PLATE AND SCREWS History of cataract removal with insertion of prosthetic lens (Inactive) Hysterectomy, Laproscopic 1 ovary remains Status post arthroscopy of shoulder (Inactive) Status post breast biopsy (Inactive) Status post cholecystectomy (Inactive) Status post laparoscopic hysterectomy (Inactive) Social History Smoking/Tobacco Use Status: Never Alcohol Intake: current Alcohol Intake frequency: holidays/special occasions only Alcohol type: hard liquor Drug use: Never Substance use type: does not use Do you feel safe in your relationship?: Yes Exam <Hermelindo Moreno DO - Last Filed: 03/30/19 15:41> Narrative Exam Narrative: 1.Const: Well-nourished, Well-developed, appearing stated age 2.Eyes: PERRL, no conjunctival injection, and symmetrical lids. 3.ENT: Atraumatic external nose and ears. Notably dry MM. Neck: Symmetric, trachea midline, No thyromegaly. Patient demonstrates good movement of cervical neck. There is no nuchal rigidity, no nuchal tenderness. Patient is able to flex the neck without any difficulty or significant pain. Negative Kernig's and Brudzinski sign. 4.CVS: +S1/S2, No murmurs or gallops. Peripheral pulses 2+ and equal in all extremities. Brisk capillary refill in all extremities. 5.RESP: Unlabored respiratory effort. Clear to auscultation bilaterally. No wheezes rales or rhonchi, minimal reproducible chest pain right lateral ribs, only present with deep palpation. 6.GI: Soft, Nontender/Nondistended, No hepatosplenomegaly. No guarding or rebound. 7.MSK: Normocephalic/Atraumatic, Extremities w/o deformity or ttp No cyanosis or clubbing, Normal movement of all extremities 8.Skin: Warm, Dry. No rashes or lesions. 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 Sensation grossly intact, no focal neurologic deficits. All 6 cardinal planes of vision are fully intact. No evidence of rotatory or vertical nystagmus. The patient demonstrated a normal [id number], good dexterity. There was no evidence of dysdiadochokinesia. Patient was able to ambulate without difficulty. There was no wide-based gait. Romberg testing was normal. Gbfo-er-[id number] testing was normal. Sensation was intact bilaterally as well as muscle strength bilaterally for all extremities. Patient was able to verbalize butter cup with no slurring, or miss pronunciation. Cerebellar function testing is normal. The patient demonstrates a normal hints exam with no findings concerning for a central event. No vertical nystagmus. The patient does have unidirectional right-sided horizontal nystagmus. The head impulse test is positive with quick movement to the right. Normal test of skew. No suggestion of a central cerebellar event. 10.Psych: (AAO) x3. Appropriate mood and affect Sign Out <Hermelindo Moreno DO - Last Filed: 03/30/19 15:41> Sign Out Data: Sign Out Comment: Cough, mild headache, mild dizziness, appears dehydrated, rehydrating, evaluating for influenza pneumonia or infection. Reevaluate after chest x-ray CT scan fluids and labs. Last updated by Hermelindo Moreno DO at 03/30/19 15:32
[2019-03-30 15:13] VITALS: BP 131/97; PULSE 101; RESP 20; TEMP 36.9; O2SAT 99
[2019-03-30] MEDS: Acetaminophen 500 MG TAB 1000 MG PO (15:35)
[2019-03-30] MEDS: Meclizine 25 MG TAB PO (15:35)
[2019-03-30] MEDS: Normal Saline 1,000 ML 1000 ML IV (15:41)
[2019-03-30 15:44] VITALS: BP 157/79; PULSE 70
[2019-03-30 15:46] VITALS: BP 147/105; PULSE 72
[2019-03-30 16:01] VITALS: BP 171/67; PULSE 66
[2019-03-30 16:37] LABS: Abs Immature Grans 0.02 k/cumm (0.0-0.09); Absolute Basophil Count 0.02 k/cumm (0.0-0.2); Absolute Eosinophil Count 0.15 k/cumm (0.0-0.7); Absolute Lymphocyte Count 1.73 k/cumm (1.2-3.4); Absolute Monocyte Count 0.63 k/cumm (0.11-0.7); Absolute Neutrophil Count 1.51 k/cumm (1.2-6.7); Basophils % 0.5; Eosinophils % 3.7; HCT 39.3 % (36.0-46.0); HGB 13.3 g/dL (12.0-15.5); Immature Grans % 0.5 %; Lymphocytes % 42.6; Mean Corp. HGB Concentration 33.8 g/dL (32.0-36.0); Mean Corpuscular Hemoglobin 30.9 pg (27.0-33.0); Mean Corpuscular Volume 91.4 fL (80-95); Mean Platelet Volume 9.6 fL (8.0-11.0); Monocytes % 15.5; Neutrophils % 37.2; Platelet Count 162 x1000/uL (130-400); RBC Distribution Width 12.7 % (11.7-14.6); White Blood Cell Count 4.06 k/cumm (4.4-10.8)
[2019-03-30 16:53] LABS: ALT 24 U/L (14-59); AST 15 U/L (15-37); Albumin 3.2 g/dL (3.4-5.0); Alkaline Phosphatase 63 U/L (46-116); Anion Gap 7.5 mmol/L (3-11); BUN 16 mg/dL (7-18); CO2 26.5 mmol/L (21.0-32.0); CREATININE 0.73 mg/dL (0.55-1.02); Calcium 7.9 mg/dL (8.5-10.1); Chloride 108 mmol/L (98-107); Glucose 84 mg/dL (74-106); Potassium 3.7 mmol/L (3.5-5.1); Sodium 142 mmol/L (136-145); Total Protein 5.9 g/dL (6.4-8.2); Troponin I < 0.05 ng/Ml (<0.06)
--- NOTE | 2019-03-30 16:54 | DI.CT_ITS ---
EXAM: CT HEAD WO CLINICAL HISTORY: dizzy, headache. TECHNIQUE: Imaging Protocol: Axial computed tomography images with coronal and sagittal reformatted images were created and reviewed. Noncontrast. COMPARISON: No exams were available for comparison FINDINGS: Ventricles and Extra axial spaces: Normal in size and morphology for the patient's age. Hemorrhage: None. Cerebral parenchyma: Normal. Midline shift: None. Brainstem/Cerebellum: Normal. Calvarium: Normal. Visualized Paranasal sinuses/Mastoids: Clear. IMPRESSION: Normal CT of the head. DATA REPOSITORY: All CT scans at this facility are submitted to the National Radiology Data Registry (NRDR) Dose Index Registry (DIR) with the [employer] ([employer]). RADIATION OPTIMIZATION: All CT scans at this facility use at least one of these dose optimization te chniques: automated exposure control; mA and/or kV adjustment per patient size (includes targeted exa ms where dose is matched to clinical indication); or iterative reconstruction.
--- NOTE | 2019-03-30 17:03 | DI.RAD_ITS ---
EXAM: XR CHEST 2V PA LATERAL INDICATION: cough, r/o pneumonia. COMPARISON: XR CHEST 2V PA LATERAL from 01/05/2019 TECHNIQUE: 2D digital imaging was performed. FINDINGS: Heart size is normal. The lungs show fibrotic changes and linear scarring. No superimposed infiltra te, effusion or pulmonary edema is seen. There are stable midthoracic compression fractures. Hardwa re is noted in the right humerus. IMPRESSION: No acute abnormality.
--- NOTE | 2019-03-30 17:12 | DI.VRAD_ITS ---
PROCEDURE INFORMATION: Exam: XR Chest, 2 Views Exam date and time: 03/30/2019 5:04 PM Age: 78 years old Clinical indication: Cough; Prior surgery; Additional info: R/O pneumonia TECHNIQUE: Imaging protocol: XR of the chest Views: 2 views. COMPARISON: CR XR CHEST 2V PA LATERAL 01/05/2019 2:36 PM FINDINGS: Lungs: Unremarkable. No consolidation. Pleural space: Unremarkable. No pleural effusion. No pneumothorax. Heart/Mediastinum: Unremarkable. No cardiomegaly. Bones/joints: Stable bilateral humeral fixation. No acute abnormality or aggressive osseous lesion. Subtle chronic superior endplate compression injury at a mid thoracic vertebra is stable. IMPRESSION: Stable examination without acute thoracic pathology. Dictated and Authenticated by: Woody Cook MD. Ordering:GILBERTO Casarez MD
--- NOTE | 2019-03-30 17:17 | DI.VRAD_ITS ---
PROCEDURE INFORMATION: Exam: CT Head Without Contrast Exam date and time: 03/30/2019 3:21 PM Age: 78 years old Clinical indication: Other: Dizzy, headache TECHNIQUE: Imaging protocol: Computed tomography of the head without contrast. COMPARISON: CT HEAD WITHOUT CONTRAST 04/11/2012 2:15 PM FINDINGS: Brain: Normal. No hemorrhage. Unremarkable white matter. No mass effect. Ventricles: Normal. No ventriculomegaly. Bones/joints: Unremarkable. No acute fracture. Sinuses: Visualized sinuses are unremarkable. No fluid levels. Mastoid air cells: Visualized mastoid air cells are well aerated. Orbits: There have been bilateral intraocular lens replacements. Soft tissues: Unremarkable. IMPRESSION: Negative for acute intracranial pathology. Dictated and Authenticated by: Woody Cook MD. Ordering:GILBERTO Casarez MD
[2019-03-30] MEDS: Ketorolac 15 MG/ML VIAL IVP (17:23)
[2019-03-30] MEDS: Normal Saline Flush 10 ML SYR IVP (17:23)
[2019-03-30 18:04] VITALS: BP 177/62; PULSE 63; RESP 18; TEMP 36.6; O2SAT 96
== END 2019-03-30 18:15 | disposition home or self-care (01) ==
PROVIDERS: Student in an Organized Health Care Education/Training Program; Emergency Provider Physician Assistant; PCP Family Medicine
DX: J11.1 Influenza due to unidentified influenza virus with other respiratory manifestations (principal); R05 Cough; R42 Dizziness and giddiness; I10 Essential (primary) hypertension
CPT/HCPCS: 36415; 80053; 87040; 87449; 93005; 96361; 96374; 99285; 70450; 71046; 81003; 83605; 84484; 85025; 93010; 99284; J1885

== ENCOUNTER 2019-07-16 15:28 | Inpatient (IN) | payer MEDICARE, SELFPAY ==
[2019-07-16] VITALS (11 sets, daily range): BP systolic 138–169; BP diastolic 58–96; PULSE 59–70; RESP 16–19; TEMP 36.6–37; O2SAT 91–96
--- NOTE | 2019-07-16 15:36 | ED.GENADUL_ITS ---
Discharge Plan Disposition Condition: Good Discharge Details Chief Complaint: Orthopedic Admit Date/Time: 07/16/19 18:00 Admit Provider: Gerardo Ramos Attending Provider: Gerardo Ramos Primary Care Provider: Kingsley Werner ED Provider: Deborah Cano Discharge Instructions Activity:: walker Equipment/Supplies:: Walker Diet:: As Tolerated Discharge Orders Discharge Orders: Discharge Order (Routine); Ordered 07/19/19 Ordered By: Shayla Rowley Discharge Data Discharge Date/Time-TO BE ENTERED AT DEPARTURE: 07/16/19 18:55 Medical Decision Making Teri Bustos is a 78 y/o woman who presented to the emergency department with right hip pain after mechanical fall. RLE NVI on exam. Concern for right hip/pelvic fracture. Exam/hx not c/w significant intracranial/cervical/thoracoabdominal or other extremity trauma, non-mechanical etiology of fall. Plan for xrays. xray show right inf and sup pubic rami fxs. Pt cannot bear weight, plan for admission. Dr. Harding notified. Will admit to medicine. Clinical Impression: pelvic fxs Disposition: [facility] inpt Medical Records Medical records reviewed: Yes I reviewed the patient's medical records. Imaging Data Radiologic Study: Attestation: I personally reviewed and interpreted this imaging study as follows: Radiologist's impression: EXAM: XR HIP RT 1V CLINICAL HISTORY: trauma, right lateral hip pain TECHNIQUE: COMPARISON: No exams were available for comparison FINDINGS: Single lateral view of the hip was obtained and shows no evidence of fracture. EXAM: XR PELVIS AP CLINICAL HISTORY: trauma, pain right hip TECHNIQUE: FINDINGS: Single AP view was obtained. There is a fracture through the pubic bone on the right involving inferior and superior pubic rami with mild displacement and mild comminution. No other definite fracture seen, there is a possible right sacral ala fracture. Additional evaluation with oblique views or CT suggested to fully evaluate fracture anatomy. HPI General Mode of arrival: EMS . Date/Time Provider Initiated Documentation: 07/16/19 15:32 . Limitations to Documentation: no limitations . Information obtained by: patient, RN notes reviewed and old records reviewed . HPI Narrative: Teri Bustos is a 78-year-old woman with a history of hypertension, GERD, hyperlipidemia presenting to the emergency department with hip pain. 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 Patient reports that she had no preceding symptoms, no lightheadedness/palpitations/pain, and states that fall was mechanical. Patient reports that she landed on her right hip when she fell. Patient reports that she thinks she hit her head lightly. She denies loss of consciousness, headache, vomiting. Patient denies any pain other than pain in her right hip. Patient states that she was previously in her usual state of health. Has been eating and drinking as usual. Patient denies numbness, weakness, fever, shortness of breath, cough, diarrhea. Patient reports that pain is worse when she moves her right leg, although she is able to bend her right knee. Patient states that she has not been able to bear weight on her right leg since the fall. Patient reports that her family was present at home with her, who called EMS when she fell. Related Data Home Medications Medication Instructions Recorded Confirmed esomeprazole magnesium [Nexium] 20 mg PO BID #180 tab-cap 08/31/12 07/19/19 fluticasone propionate [Flonase] 2 spry NS DAILY PRN 06/07/13 07/19/19 albuterol sulfate [ProAir HFA] 2 puff INHALATION QID PRN #3 ea 03/21/17 07/19/19 cholecalciferol (vitamin D3) 2,000 unit PO DAILY 07/18/17 07/19/19 fluticasone propion-salmeterol 1 puff INHALATION PRN PRN 12/09/17 07/19/19 [Advair Diskus] montelukast 10 mg tablet 10 mg PO DAILY #90 tab 05/18/18 07/19/19 simvastatin 40 mg tablet 40 mg PO DAILY #90 tab-cap 05/18/18 07/19/19 metoprolol tartrate 25 mg tablet 25 mg PO BID #180 tab 10/18/18 07/19/19 fluoxetine 20 mg capsule 20 mg PO DAILY #90 cap 02/09/19 07/19/19 meclizine 25 mg PO TID PRN #10 tab 03/30/19 07/19/19 Previous Rx's Medication Instructions Recorded montelukast 10 mg tablet 10 mg PO DAILY #90 tab 05/18/18 simvastatin 40 mg tablet 40 mg PO DAILY #90 tab-cap 05/18/18 metoprolol tartrate 25 mg tablet 25 mg PO BID #180 tab 10/18/18 fluoxetine 20 mg capsule 20 mg PO DAILY #90 cap 02/09/19 meclizine 25 mg PO TID PRN #10 tab 03/30/19 Allergies Allergy/AdvReac Type Severity Reaction Status Date / Time adhesive Allergy Severe SKIN RASH Verified 03/30/19 15:26 Sulfa (Sulfonamide Allergy Intermediate ITCHING Verified 03/30/19 15:26 Antibiotics) losartan Allergy Unknown SWELLING, Verified 03/30/19 15:26 ITCHING hydrocodone AdvReac Itching Verified 03/30/19 15:26 with high doses General Stated Complaint: Orthopedic CLAUDIA: 3 Review of Systems Narrative: Constitutional: denies fevers Eyes: denies eye pain ENT: denies ear pain, dental pain, sore throat Cardiovascular: denies chest pain Respiratory: denies SOB, cough GI: denies abdominal pain, vomiting, diarrhea : denies flank pain MSK: denies back pain, neck pain, myalgias, reports right hip pain as per HPI Skin: denies rash Neuro: denies headaches, numbness, weakness PFSH Medical History Acute bacterial bronchitis (Inactive) Arthritis of left knee (Resolved) s/p total knee Asthma (Chronic) Gastroparesis (Chronic) GERD (gastroesophageal reflux disease) (Chronic) H/O: pneumonia (Inactive) Headache (Inactive) HTN (hypertension) (Chronic) Hypercholesterolemia (Chronic) Osteoarthritis (Chronic) Peptic ulcer (Inactive) Unilateral inguinal hernia (Inactive) Surgical History Arthroscopy, Shoulder LEFT Biopsy of breast (~2005) LEFT Cholecystectomy Extraction of cataract 06/11/13; RIGHT 06/26/13; LEFT FX ARM (02/15/14) PLATE AND SCREWS History of cataract removal with insertion of prosthetic lens (Inactive) Hysterectomy, Laproscopic 1 ovary remains Status post arthroscopy of shoulder (Inactive) Status post breast biopsy (Inactive) Status post cholecystectomy (Inactive) Status post laparoscopic hysterectomy (Inactive) Family History Mother Diabetes Essential hypertension Depression Heart disease Hyperlipidemia Father , WW II at age 24. No problems noted. Brother Diabetes Essential hypertension Hyperlipidemia Neoplasm MELANOMA Grandfather Diabetes Essential hypertension Grandfather Essential hypertension Heart disease Hyperlipidemia Grandmother Essential hypertension Neoplasm Stroke Grandmother Diabetes Blood disease Neoplasm COLON FAMILY HISTORY Myocardial infarction Son Substance abuse Depression Hyperlipidemia Daughter Diabetes Depression Hyperlipidemia Asthma Social History Smoking/Tobacco Use Status: Never Alcohol Intake: current Alcohol Intake frequency: holidays/special occasions only Alcohol type: hard liquor Drug use: Never Substance use type: does not use Do you feel safe at home: Yes Do you feel safe in your relationship?: Yes Exam Narrative Exam Narrative: Constitutional: well and [id number], pleasant, c onversing normally HENT: head atraumatic/normocephalic/normal inspection, mucous membranes moist Eyes: conjunctiva normal, sclera normal, pupils 3mm b/l Neck: no stridor, normal ROM, trachea midline Resp: normal work of breathing, LCTAB Cardio: normal rate, normal rhythm, no murmur appreciated GI: abdomen soft, non-tender, non-distended Skin: warm, dry, normal color, no rash Neuro: alert, not altered, grossly non-focal, normal tone, motor 5/5 b/l LEs, normal sensation b/l LEs Ext: right hip TTP laterally, right groin TTP. No overlying skin changes of the hip or groin. No edema. ROM of hip limited 2/2 pain. Normal ROM right knee. DP pulses intact b/l. Psych: normal mood, normal affect, normal behavior Course Vital Signs Vital signs: Vital Signs Temperature 36.6 C 07/16/19 15:21 Pulse 65 07/16/19 15:21 Respiratory Rate 17 07/16/19 15:21 Blood Pressure 169/96 H 07/16/19 15:21 Pulse Oximetry 96 07/16/19 15:21 Temperature 36.6 C 07/16/19 15:21 Temperature Source Tympanic 07/16/19 15:21 Pulse 65 07/16/19 15:21 Respiratory Rate 17 07/16/19 15:21 Respiratory Effort 07/16/19 15:28 Blood Pressure 169/96 H 07/16/19 15:21 Blood Pressure Position Supine 07/16/19 15:21 Pulse Oximetry 96 07/16/19 15:21 Oxygen Delivery Method Room Air 07/16/19 15:21 Oxygen Flow Rate 0 07/16/19 15:21 Pain Level 0 07/16/19 15:21
--- NOTE | 2019-07-16 15:51 | DI.RAD_ITS ---
EXAM: XR PELVIS AP CLINICAL HISTORY: trauma, pain right hip TECHNIQUE: FINDINGS: Single AP view was obtained. There is a fracture through the pubic bone on the right involving infer ior and superior pubic rami with mild displacement and mild comminution. No other definite fracture seen, there is a possible right sacral ala fracture. Additional evaluation with oblique views or CT suggested to fully evaluate fracture anatomy. IMPRESSION:
[2019-07-16] MEDS: fentaNYL 100 MCG/2 ML VIAL 50 MCG IVP ×3 (15:57→21:26)
--- NOTE | 2019-07-16 16:37 | DI.VRAD_ITS ---
PROCEDURE INFORMATION: Exam: XR Pelvis Exam date and time: 07/16/2019 4:27 PM Age: 78 years old Clinical indication: Injury or trauma; Fall; Initial encounter; Blunt trauma (contusions or hematomas); Right; Pelvic region TECHNIQUE: Imaging protocol: XR pelvis. Views: 1 or 2 view. COMPARISON: CT Private^ROUTINE ABDOMEN PELVIS WITH CONTRAST (Adult) 12/14/2017 7:39 AM FINDINGS: Bones/joints: There is a somewhat comminuted fracture of the superior and inferior pubic ramus on the right side. A fracture of the right side of the sacrum is suspected as well. Soft tissues: Unremarkable. Vasculature: There are multiple phleboliths within the pelvis. IMPRESSION: Pelvic fracture as described above. Dictated and Authenticated by: Adi Paul MD. Ordering:NAEL Cabrera MD
--- NOTE | 2019-07-16 17:45 | DI.RAD_ITS ---
EXAM: XR HIP RT 1V CLINICAL HISTORY: trauma, right lateral hip pain TECHNIQUE: COMPARISON: No exams were available for comparison FINDINGS: Single lateral view of the hip was obtained and shows no evidence of fracture. IMPRESSION:
--- NOTE | 2019-07-16 17:51 | W.PM.HP.N ---
Date of service: 07/16/19 Time of Service: 17:51 Assessment and Plan Assessment and plan (1) Pelvic fracture: Status: Acute Assessment and plan: Pelvic fracture. Will consult PT and prn analgesics. Will also get complete femur series. Reviewed ADs, requests Full Code History of Present Illness History of Present Illness Chief Complaint: pelvis pain Narrative: 78 female fell off chair this afternoon, landing on right side on wooden floor. Unable to bear weight, EMS called. In ER fxx of right sup. and inf. pubic rami noted. Given MS 4 then fentanyl 50. Admitted for further management. Also c/o right proximal thigh pain. AP view of pelvic film shows no fx. Review of Systems All systems reviewed & are unremarkable except as noted in HPI and below PFSH Medical History Acute bacterial bronchitis (Inactive) Arthritis of left knee (Resolved) s/p total knee Asthma (Chronic) Gastroparesis (Chronic) GERD (gastroesophageal reflux disease) (Chronic) H/O: pneumonia (Inactive) Headache (Inactive) HTN (hypertension) (Chronic) Hypercholesterolemia (Chronic) Osteoarthritis (Chronic) Peptic ulcer (Inactive) Unilateral inguinal hernia (Inactive) Surgical History Arthroscopy, Shoulder LEFT Biopsy of breast (~2005) LEFT Cholecystectomy Extraction of cataract 06/11/13; RIGHT 06/26/13; LEFT FX ARM (02/15/14) PLATE AND SCREWS History of cataract removal with insertion of prosthetic lens (Inactive) Hysterectomy, Laproscopic 1 ovary remains Status post arthroscopy of shoulder (Inactive) Status post breast biopsy (Inactive) Status post cholecystectomy (Inactive) Status post laparoscopic hysterectomy (Inactive) Family History Mother Diabetes Essential hypertension Depression Heart disease Hyperlipidemia Father , WW II at age 24. No problems noted. Brother Diabetes Essential hypertension Hyperlipidemia Neoplasm MELANOMA Grandfather Diabetes Essential hypertension Grandfather Essential hypertension Heart disease Hyperlipidemia Grandmother Essential hypertension Neoplasm Stroke Grandmother Diabetes Blood disease Neoplasm COLON FAMILY HISTORY Myocardial infarction Son Substance abuse Depression Hyperlipidemia Daughter Diabetes Depression Hyperlipidemia Asthma Social History Smoking/Tobacco Use Status: Never Alcohol Intake: current Alcohol Intake frequency: holidays/special occasions only Alcohol type: hard liquor Drug use: Never Substance use type: does not use Do you feel safe at home: Yes Do you feel safe in your relationship?: Yes Meds Home Medications and Allergies Home Medications Medication Instructions Recorded Confirmed Type esomeprazole magnesium [Nexium] 20 mg PO BID #180 tab-cap 08/31/12 07/16/19 History fluticasone propionate [Flonase] 2 spry NS DAILY PRN 06/07/13 07/16/19 History albuterol sulfate [ProAir HFA] 2 puff INHALATION QID PRN #3 ea 03/21/17 07/16/19 History cholecalciferol (vitamin D3) 2,000 unit PO DAILY 07/18/17 07/16/19 History fluticasone propion-salmeterol 1 puff INHALATION PRN PRN 12/09/17 07/16/19 History [Advair Diskus] montelukast 10 mg tablet 10 mg PO DAILY #90 tab 05/18/18 07/16/19 Rx simvastatin 40 mg tablet 40 mg PO DAILY #90 tab-cap 05/18/18 07/16/19 Rx metoprolol tartrate 25 mg tablet 25 mg PO BID #180 tab 10/18/18 07/16/19 Rx fluoxetine 20 mg capsule 20 mg PO DAILY #90 cap 02/09/19 07/16/19 Rx meclizine 25 mg PO TID PRN #10 tab 03/30/19 07/16/19 Rx Allergies Allergy/AdvReac Type Severity Reaction Status Date / Time adhesive Allergy Severe SKIN RASH Verified 03/30/19 15:26 Sulfa (Sulfonamide Allergy Intermediate ITCHING Verified 03/30/19 15:26 Antibiotics) losartan Allergy Unknown SWELLING, Verified 03/30/19 15:26 ITCHING hydrocodone AdvReac Itching Verified 03/30/19 15:26 with high doses Exam Narrative Exam Narrative: 169/96, 65, 17, 36.6, 96% RA. HEENT atraumatic; neck supple; lungs clear; heart RRR w/o MRG; abdomen soft and NYT; extremities w/o edema, swelling and tenderness overlying proximal right femur approx 6-8 cm distal to gr. troch. Tender over right pubis. Pedal pulse intact. Results Last Vital Signs Temp 36.6 C 07/16/19 15:21 Pulse 65 07/16/19 15:21 Resp 17 07/16/19 15:21 BP 169/96 H 07/16/19 15:21 Pulse Ox 96 07/16/19 15:21 COVID-19 Screening Traveled to [place] from one of the affected countries or regions?: NO Recent travel in the [place] within the last 14 days?: No Recent out of the country travel within the last 14 days?: No Exposure or possible exposure to illness during travel?: No Had IN PERSON contact w/suspected or confirmed C-19 person: No Have you had the following symptoms in the past few days?: No
--- NOTE | 2019-07-16 18:30 | DI.VRAD_ITS ---
PROCEDURE INFORMATION: Exam: XR Right Hip with Pelvis when Performed Exam date and time: 07/16/2019 6:23 PM Age: 78 years old Clinical indication: Injury or trauma; Initial encounter; Blunt trauma (contusions or hematomas); Right; Pelvic region; Patient HX: Fall, pelvic FX TECHNIQUE: Imaging protocol: XR Right hip with pelvis when performed. Views: 1 view. COMPARISON: CR XR PELVIS AP 07/16/2019 4:27 PM FINDINGS: Bones/joints: Limited one view of the right hip demonstrates no evidence of a fracture or a dislocation. Soft tissues: Unremarkable. IMPRESSION: Limited study as above. Dictated and Authenticated by: Adi Paul MD. Ordering:NAEL Cabrera MD
[2019-07-16] MEDS: Enoxaparin 40 MG/0.4 ML SYR SC (20:57)
[2019-07-16] MEDS: Metoprolol 25 MG TAB PO (20:57)
[2019-07-16] MEDS: Normal Saline 1,000 ML 75 ML IV (21:26)
[2019-07-16] MEDS: Esomeprazole 20 MG CAPCR PO (21:26)
--- NOTE | 2019-07-17 | DI.RAD_ITS ---
EXAM: XR PORTABLE CHEST AP CLINICAL HISTORY: wheezing, concern for PNA TECHNIQUE: COMPARISON: CR,XR XR CHEST 2V PA LATERAL from 03/30/2019 FINDINGS: Heart is not enlarged. Lungs clear except for mild changes scarring as noted on prior studies. No g ross pleural effusion on this frontal film. IMPRESSION: No evidence of acute process.
[2019-07-17] MEDS: fentaNYL 100 MCG/2 ML VIAL 50 MCG IVP ×3 (00:50→09:08)
[2019-07-17 03:30] VITALS: BP 131/72; PULSE 72; RESP 18; TEMP 37.7; O2SAT 92
[2019-07-17] MEDS: Albuterol HFA 8 GM 60 PUFF INH IH (04:20)
[2019-07-17 05:57] VITALS: TEMP 37.1
[2019-07-17 07:41] VITALS: BP 131/57; PULSE 71; RESP 18; TEMP 37.1; O2SAT 96
[2019-07-17] MEDS: Esomeprazole 20 MG CAPCR PO ×2 (07:57→19:50)
[2019-07-17] MEDS: Acetaminophen 500 MG TAB 1000 MG PO ×3 (07:57→19:49)
[2019-07-17] MEDS: Simvastatin 40 MG TAB PO (07:57)
[2019-07-17] MEDS: Metoprolol 25 MG TAB PO ×2 (07:57→19:50)
[2019-07-17] MEDS: Montelukast 10 MG TAB PO (07:57)
[2019-07-17] MEDS: FLUoxetine 20 MG CAP PO (07:57)
[2019-07-17 08:33] LABS: Abs Immature Grans 0.03 k/cumm (0.0-0.09); Absolute Basophil Count 0.03 k/cumm (0.0-0.2); Absolute Eosinophil Count 0.24 k/cumm (0.0-0.7); Absolute Lymphocyte Count 1.85 k/cumm (1.2-3.4); Absolute Monocyte Count 0.75 k/cumm (0.11-0.7); Absolute Neutrophil Count 3.12 k/cumm (1.2-6.7); Basophils % 0.5; HCT 38.2 % (36.0-46.0); HGB 13.1 g/dL (12.0-15.5); Immature Grans % 0.5 %; Lymphocytes % 30.7; Mean Corp. HGB Concentration 34.3 g/dL (32.0-36.0); Mean Corpuscular Hemoglobin 30.8 pg (27.0-33.0); Mean Corpuscular Volume 89.7 fL (80-95); Mean Platelet Volume 10.3 fL (8.0-11.0); Monocytes % 12.5; Neutrophils % 51.8; Platelet Count 189 x1000/uL (130-400); RBC 4.26 m/cumm (4.00-5.20); RBC Distribution Width 12.5 % (11.7-14.6); White Blood Cell Count 6.02 k/cumm (4.4-10.8)
[2019-07-17 08:41] LABS: Prothrombin Time 10.5 sec (9.3-11.0)
[2019-07-17 08:44] LABS: ALT 28 U/L (14-59); AST 18 U/L (15-37); Albumin 3.7 g/dL (3.4-5.0); Alkaline Phosphatase 62 U/L (46-116); Anion Gap 8.3 mmol/L (3-11); BUN 19 mg/dL (7-18); Bilirubin, Direct 0.25 mg/dL (0.00-0.20); CO2 25.7 mmol/L (21.0-32.0); CREATININE 0.76 mg/dL (0.55-1.02); Calcium 8.4 mg/dL (8.5-10.1); Chloride 106 mmol/L (98-107); Creatine Kinase 120 U/L (26-192); Glucose 103 mg/dL (74-106); Magnesium 1.8 mg/dL (1.8-2.4); Potassium 3.7 mmol/L (3.5-5.1); Sodium 140 mmol/L (136-145); Total Protein 6.6 g/dL (6.4-8.2); Troponin I < 0.05 ng/Ml (<0.06)
--- NOTE | 2019-07-17 09:31 | INITIAL_ITS ---
- If Service Date Differs Date of service: 07/17/19 Time of Service: 09:31 Care Management Initial Assess REASON FOR HOSPITALIZATION:: pelvic fracture PAST MEDICAL HISTORY/PAST SURGICAL HISTORY:: Medical History . Acute bacterial bronchitis (Inactive). Arthritis of left knee (Resolved). s/p total knee. Asthma (Chronic). Gastroparesis (Chronic). GERD (gastroesophageal reflux disease) (Chronic). H/O: pneumonia (Inactive). Headache (Inactive). HTN (hypertension) (Chronic). Hypercholesterolemia (Chronic). Osteoarthritis (Chronic). Peptic ulcer (Inactive). Unilateral inguinal hernia (Inactive). Surgical History . Arthroscopy, Shoulder. LEFT. Biopsy of breast (~2005). LEFT. Cholecystectomy. Extraction of cataract. 06/11/13; RIGHT. 06/26/13; LEFT. FX ARM (02/15/14). PLATE AND SCREWS. History of cataract removal with insertion of prosthetic lens (Inactive). Hysterectomy, Laproscopic. 1 ovary remains. Status post arthroscopy of shoulder (Inactive). Status post breast biopsy (Inactive). Status post cholecystectomy (Inactive). Status post laparoscopic hysterectomy (Inactive) PREVIOUS FUNCTIONAL STATUS/SOCIAL/FAMILY SUPPORTS:: Teri lives alone in a mobile home in [place] [facility] in [place], [place]. Her son and his girlfriend are here for the summer and are staying with Gela. She has been for three years. 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 She has many close friends and before the pandemic, enjoyed line dancing and going out with her friends. CURRENT FUNCTIONAL STATUS:: Gela was lying in bed when CM met with her. She was pleasant and engaged readily in conversation. Gela shared information about some of her hobbies and the close network of friends she has. In discussions about discharge planning, Gela was very clear that she does not want to go to a SNF. She stated that the doctor told her she could go into swing bed status if she needed a longer stay. ADVANCE DIRECTIVES:: None on file Has patient been provided with information about the portal?: Yes Did the patient sign up for the portal?: No CODE STATUS:: Full Code INSURANCE COVERAGE / FINANCIAL ISSUES:: Medicare. [employer] group health CURRENT HOME/COMMUNITY SERVICES/EQUIPMENT:: None currently PRIMARY CARE PHYSICIAN:: Kinglsey Werner POTENTIAL DISCHARGE NEEDS:: Follow up with PCP and discharge plan of care PATIENT/FAMILY EDUCATION NEEDS:: Discharge plan, limitations, follow up plan, Ask Me Three. TRANSPORTATION:: via private vehicle with family PLAN:: Gela will likely be discharged home when medicallyready, although she may need a short stay in swingbed status. She will follow up with her PCP and discharge plan of care. CM will continue to support patient, family and discharge planning needs and concerns.
[2019-07-17 09:50] LABS: COVID-19 RT-PCR UVMMC Result Negative (Negative)
--- NOTE | 2019-07-17 10:57 | PHA.REVIEW ---
Pharmacy Admission Review - Admission Clinical Review (Last Reviewed 07/16/19 @ 17:55 by Gerardo Ramos MD) Pelvic fracture (Acute) adhesive Allergy (Severe, Verified 03/30/19 15:26) SKIN RASH Sulfa (Sulfonamide Antibiotics) Allergy (Intermediate, Verified 03/30/19 15:26) ITCHING losartan Allergy (Unknown, Verified 03/30/19 15:26) SWELLING, ITCHING hydrocodone Adverse Reaction (Verified 03/30/19 15:26) Itching with high doses Height 5 ft 4 in Weight 65.771 kg - Renal Dosing Renal Dosing: BUN 19 mg/dL (7-18) H 07/17/19 08:20 Creatinine 0.76 mg/dL (0.55-1.02) 07/17/19 08:20 Medications needing adjustments: Reviewed (crcl ~51ml/min) - Anticoagulation Anticoagulation: Hgb 13.1 g/dL (12.0-15.5) 07/17/19 08:20 Hct 38.2 % (36.0-46.0) 07/17/19 08:20 Plt Count 189 x1000/uL (130-400) 07/17/19 08:20 INR 1.0 (0.9-1.1) 07/17/19 08:20 Creatinine 0.76 mg/dL (0.55-1.02) 07/17/19 08:20 DVT Prohphylaxis: Reviewed Medications: Enoxaparin Therapeutic Anticoagulation: N/A - Opiate Usage Evaluate Pain Scale/Pains Meds: Reviewed Scheduled Bowel Reg ordered if on Opiates?: Yes - Relevant Labs Sodium 140 mmol/L (136-145) 07/17/19 08:20 Potassium 3.7 mmol/L (3.5-5.1) 07/17/19 08:20 Chloride 106 mmol/L (98-107) 07/17/19 08:20 Magnesium 1.8 mg/dL (1.8-2.4) 07/17/19 08:20 Electrolytes, C-Reactive P, ESR: Reviewed - DM Control DM Control: Glucose 103 mg/dL (74-106) 07/17/19 08:20 Insulin Dosing: N/A - Heart Failure/ME Heart Failure/ME: Troponin I < 0.05 ng/Ml (<0.06) 07/17/19 08:20 EF%, KRISTI's, B-Blockers, Diuretics: N/A - BP Control BP Control: Blood Pressure 131/57 Blood Pressure 131/72 If elevated: N/A - Qtc Review If Elevated: N/A - Home Meds Home Med List reviewed: Reviewed Relevent Home Meds Not ordered & why?: cholecalciferol, meclizine not ordered - Current meds Current Medication Order Review: Reviewed - Comments Comments/Follow Ups: PT consult orderd,
--- NOTE | 2019-07-17 11:57 | W.PM.PROGNOT ---
Date of Service Date of service: 07/17/19 Time of Service: 11:57 Assessment and Plan Assessment and plan (1) Pelvic fracture: Status: Acute Assessment and plan: Traumatic post mechanical fall. Pain control is an issue - I added toradol, gabapentin, and scheduled tylenol. PT consulted. Discussed with orthopedics - pelvic fractures are usually allowed to be WBAT and no surgical intervention is required. Provide IS, bowel regimen and ensure no urinary retention. Check Vitamin D level. (2) Asthma exacerbation: Status: Acute Assessment and plan: Check CXR and procalcitonin. Add prednsione (might also help with pain control). Continue prn albuterol. Replace home advair with symbicort while in the hospital. (3) Urinary retention: Status: Suspected Assessment and plan: Check bladder scans/PVRs. Ensure no constipation. (4) COVID-19 ruled out: Status: Ruled-out Assessment and plan: Nasopharyngeal PCR came back negative. (5) DVT prophylaxis: Status: Acute Assessment and plan: lovenox, TEDs, SCDs (6) Discharge planning issues: Status: Acute Assessment and plan: Full code Disposition depends on PT recommendations. Patient is not interested in going to a rehab facility, but if needed would consider a swing bed stay. Subjective Subjective Interval history since last seen: Ms Soto states that she was barely able to sit today with PT and was not able to stand at all because of pain. While laying down she is comfortable. Denies dizziness, chest pain, nausea, abdominal pain. States her asthma is acting up and that she usually takes prednisone whenever she gets an exacerbation (40 mg x 5 days). She thinks she could use it now. Had a hard time sleeping. Exam Narrative Exam Narrative: General: Very pleasant elderly female, sounds congested, A&Ox3, appears comfortable HEENT: EOMI, MMM Heart: RRR, no m/r/g Lungs: quiet wheezing on expiration B Abdomen: soft, nontender, nondistended Extremities: no e/c/c BLE's Objective Objective Clinical Data: Abnormal lab results 07/17/19 07/17/19 Range/Units 08:20 08:20 Absolute Monocytes 0.75 H (0.11-0.7) k/cumm BUN 19 H (7-18) mg/dL Calcium 8.4 L (8.5-10.1) mg/dL Conjugated Bilirubin 0.25 H (0.00-0.20) mg/dL Vital Signs Temperature 37.1 C 07/17/19 07:41 Temperature Source Tympanic 07/17/19 07:41 Pulse 71 07/17/19 07:41 Pulse Rhythm Regular 07/17/19 08:00 Respiratory Rate 18 07/17/19 07:41 Respiratory Effort Non-Labored 07/17/19 08:00 Respiratory Depth Normal 07/17/19 08:00 Respiratory Pattern Normal 07/17/19 08:00 Blood Pressure 131/57 L 07/17/19 07:41 Blood Pressure Mean 82 07/16/19 18:34 Blood Pressure Position Supine 07/16/19 15:21 Pulse Oximetry 96 07/17/19 07:41 Oxygen Delivery Method Room Air 07/17/19 07:41 Oxygen Flow Rate 0 07/17/19 07:41 Pain Level 6 07/17/19 07:57 Intake & Output 07/16/19 07/16/19 07/17/19 11:59 23:59 11:59 Intake Total 210 / 210 Output Total 400 / 400 Balance -190 / -190 Weight 65.771 kg Intake: IV Oral 200 / 200 Output: Urine 400 / 400 Other: Urine Color Light Monica Yellow Urine Appearance Clear Clear Urine Odor Normal Normal Voiding Methods Bedpan Diaper Laboratory Results WBC 6.02 k/cumm (4.4-10.8) 07/17/19 08:20 RBC 4.26 m/cumm (4.00-5.20) 07/17/19 08:20 Hgb 13.1 g/dL (12.0-15.5) 07/17/19 08:20 Hct 38.2 % (36.0-46.0) 07/17/19 08:20 MCV 89.7 fL (80-95) 07/17/19 08:20 MCH 30.8 pg (27.0-33.0) 07/17/19 08:20 MCHC 34.3 g/dL (32.0-36.0) 07/17/19 08:20 RDW 12.5 % (11.7-14.6) 07/17/19 08:20 Plt Count 189 x1000/uL (130-400) 07/17/19 08:20 MPV 10.3 fL (8.0-11.0) 07/17/19 08:20 Immature Gran % 0.5 % 07/17/19 08:20 Neutrophils % 51.8 07/17/19 08:20 Lymphocytes % 30.7 07/17/19 08:20 Monocytes % 12.5 07/17/19 08:20 Eosinophils % 4.0 07/17/19 08:20 Basophils % 0.5 07/17/19 08:20 Absolute Neutrophils 3.12 k/cumm (1.2-6.7) 07/17/19 08:20 Absolute Lymphocytes 1.85 k/cumm (1.2-3.4) 07/17/19 08:20 Absolute Monocytes 0.75 k/cumm (0.11-0.7) H 07/17/19 08:20 Absolute Eosinophils 0.24 k/cumm (0.0-0.7) 07/17/19 08:20 Absolute Basophils 0.03 k/cumm (0.0-0.2) 07/17/19 08:20 PT 10.5 sec (9.3-11.0) 07/17/19 08:20 INR 1.0 (0.9-1.1) 07/17/19 08:20 Sodium 140 mmol/L (136-145) 07/17/19 08:20 Potassium 3.7 mmol/L (3.5-5.1) 07/17/19 08:20 Chloride 106 mmol/L (98-107) 07/17/19 08:20 Carbon Dioxide 25.7 mmol/L (21.0-32.0) 07/17/19 08:20 Anion Gap 8.3 mmol/L (3-11) 07/17/19 08:20 BUN 19 mg/dL (7-18) H 07/17/19 08:20 Creatinine 0.76 mg/dL (0.55-1.02) 07/17/19 08:20 Estimated GFR/1.73 m2 >= 60.00 (mL/min/1.73m2) 07/17/19 08:20 Glucose 103 mg/dL (74-106) 07/17/19 08:20 Calcium 8.4 mg/dL (8.5-10.1) L 07/17/19 08:20 Magnesium 1.8 mg/dL (1.8-2.4) 07/17/19 08:20 Total Bilirubin 1.0 mg/dL (0.2-1.0) 07/17/19 08:20 Conjugated Bilirubin 0.25 mg/dL (0.00-0.20) H 07/17/19 08:20 AST 18 U/L (15-37) 07/17/19 08:20 ALT 28 U/L (14-59) 07/17/19 08:20 Alkaline Phosphatase 62 U/L (46-116) 07/17/19 08:20 Creatine Kinase 120 U/L (26-192) 07/17/19 08:20 Troponin I < 0.05 ng/Ml (<0.06) 07/17/19 08:20 Total Protein 6.6 g/dL (6.4-8.2) 07/17/19 08:20 Albumin 3.7 g/dL (3.4-5.0) 07/17/19 08:20 COVID-19 PCR Negative (Negative) 07/16/19 18:40 Nasopharyn COVID-19 PCR Not Applicable 07/16/19 18:40 Ref Test Perform Site [facility] hospital lab 07/16/19 18:40
--- NOTE | 2019-07-17 12:11 | W.NUTRFU ---
Date of service: 07/17/19 Time of Service: 12:11 Nutritional Follow up NOTE: 78 year old female admitted with pelvic fracture. BMI wnl for age. Following regular meal plan with adequate intake (50-75%). Not at risk for nutritional decline at this time. will follow prn Time Spent in Nutritional Counseling and Treatment: 0 time spent face to face
--- NOTE | 2019-07-17 12:14 | IN_ITS ---
Date of service: 07/17/19 Time of Service: 09:30 PT Notes Visit Reasons: PELVIC FRACTURE Inpatient Physical Therapy Evaluation Date: July 17, 2019 Referring Doctor: Gerardo Ramos PT Orders: PT CONSULT: Precautions: Standard, right sided fracture of the pubic bone inf/sup rami Patient Profile/Admitting Diagnosis: Teri is 78 year old female admitted s/p fall resulting in fracture of the pubic bone of the right inferior/superior rami with mild displacement. PMHX: Acute bacterial bronchitis (Inactive) Arthritis of left knee (Resolved) s/p total knee Asthma (Chronic) Gastroparesis (Chronic) GERD (gastroesophageal reflux disease) (Chronic) H/O: pneumonia (Inactive) Headache (Inactive) HTN (hypertension) (Chronic) Hypercholesterolemia (Chronic) Osteoarthritis (Chronic) Peptic ulcer (Inactive) Unilateral inguinal hernia (Inactive) Surgical History Arthroscopy, Shoulder LEFT Biopsy of breast (~2005) LEFT Cholecystectomy Extraction of cataract 06/11/13; RIGHT 06/26/13; LEFT FX ARM (02/15/14) PLATE AND SCREWS History of cataract removal with insertion of prosthetic lens (Inactive) Hysterectomy, Laproscopic 1 ovary remains Status post arthroscopy of shoulder (Inactive) Status post breast biopsy (Inactive) Status post cholecystectomy (Inactive) Status post laparoscopic hysterectomy (Inactive) Social History/Home Situation: She reports currently her son and daughter in law are staying with her. She notes complete independence prior to her fall at baseline. She reports of 4 steps to enter home. Once inside 1 level living. Does have a walk-in shower. Also has providers at the bathroom. Current Functional Limitations: Inability to sit, stand, or walk due to severe pain in her right pelvis Equipment Owned/DME: Walker, cane, shower seat, grab bars Subjective: Teri is agreeable to PT consult however is unsure what she is going to be able to do. She is very fearful of getting up and out of bed due to the pain. Objective: General Observation: IV left upper extremity Mental Status: Alert and oriented x3 Pain: 5/10 at start of PT consult, 8/10 post transfer from supine to sit ROM: Right Upper Extremity: Demonstrates full active right upper extremity range of motion Left Upper Extremity: Demonstrates full active left upper extremity range of motion Right Lower Extremity: Hip flexion tolerable to 80 degrees, abduction 20 degrees, knee flexion 90 degrees, knee extension 0 degrees, ankle dorsiflexion/plantarflexion within normal limits Left Lower Extremity: Demonstrates full active left lower extremity range of motion Strength: Right Upper Extremity: Demonstrates 5/5 all right upper extremity myotomes Left Upper Extremity: Demonstrates 5/5 left upper extremity myotomes Right Lower Extremity: N/T Left Lower Extremity: Independent straight leg raise in supine. Demonstrates good quad activation with quad sets. Ankle dorsiflexion/plantarflexion 5/5 Sensation: Demonstrates intact light touch Bed Mobility/Transfers: Supine?sit: HOB 30 degrees, mod A x1 with increased pain in right pelvis Sit-supine: HOB 30 degrees, modA x1 LE assist Unable to assess any further functional mobility/transfers due to pain Gait: N/T due to pain and limited abilities s/p pelvic fracture Balance: Static Sitting: Good Dynamic Sitting: Good Static Standing: N/T Dynamic Standing: N/T Special Tests: Mobility Limitations Standardized Measure [facility] AM-PAC 6 clicks Basic Mobility Inpatient Short Form: Raw Score: 8 CMS Score: 86% Informed Consent/Education: Patient instructed in purpose of PT consult and plan of care. Assessment: Patient is a 78 year old female referred to physical therapy services with the diagnosis of status post pelvic fracture, s/p fall. Patient presents with clinical signs and symptoms consistent with diagnosis. Teri demonstrates difficulty with all transfers, bed mobility and ambulation tolerance due to pain s/p pelvic fracture, will need front wheeled walker for all mobility ADL performance, due to lack of right lower extremity weakness, balance impairment, and unsteadiness of feet resulting to a functional mobility decline and increased risk for falls. Patient presents with clinical signs and symptoms consistent with current/admitting diagnoses that have resulted to mobility limitations, gait instability, generalized weakness, and impairment of motor control as demonstrated by the following impairment level findings: 1. Decreased strength to R LE major muscle groups 2. Impaired sitting/standing balance 3. Impaired activity tolerance 4. Limited ROM of Right hip Impairments are contributing to the following functional limitations: 1. Dependent bed mobility skills 2. Increased dependence with transfers 3. Inability to safely ambulate without assistive device and physical assistance 4. Increase completion time for mobility ADL performance 5. Increased fall risk 6. Inability to negotiate steps alone safely Patient is assessed as a Moderate 22805 complexity based on the following: History: As above Examination: As above Presentation: Evolving Decision Making: Moderate Goals: Goals X1 week 1. Supine-Sit independent 2. Sit-Supine independent 3. Sit-Stand supervision 4. Stand-Sit supervision 5. Bed-Chair supervision with FWW 6. Chair-Bed supervision with FWW 7. Independent gait on level surface with use of least restrictive device for at least 200 feet without report of pain nor dyspnea 8. Independent stair negotiation while holding onto bilateral rails for at least 3 steps without report of pain nor dyspnea 9. Independent with home exercise program 10. Good static and dynamic standing balance/tolerance Plan of Care/Treatment Plan: 1-2x/day, 7 days/week x 1 week. Initiate Physical Therapy intervention for strengthening, bed mobility, transfers, gait, stairs, balance training, use of assistive device. DISCHARGE RECOMMENDATIONS: Patient will benefit from home health PT services or possible need of SNF in order to progress mobility level using least restrictive assistive ambulatory device, assess home safety, identify additional equipment needs, and establish a functional maintenance program that will increase ability of patient to remain at home or SNF to promote independence at home. TREATMENT CODE/TIME: 30008 x 25 minutes, 9:30 AM Thank you very much for this referral. Magnolia Lynn, MPT [facility]
[2019-07-17] MEDS: Normal Saline 1,000 ML 75 ML IV (12:21)
[2019-07-17] MEDS: Ketorolac 15 MG/ML VIAL IVP ×3 (12:31→23:15)
[2019-07-17] MEDS: predniSONE 20 MG TAB 40 MG PO (12:31)
[2019-07-17 13:01] LABS: Procalcitonin < 0.1 ng/mL
[2019-07-17] MEDS: Budesonide/Formoterol 160/4.5 6 GM 60 PUFF INH IH ×2 (13:24→19:50)
[2019-07-17] MEDS: Gabapentin 100 MG CAP PO ×2 (13:59→19:50)
[2019-07-17] MEDS: oxyCODONE 5 MG TAB PO ×2 (13:59→19:50)
--- NOTE | 2019-07-17 15:06 | PT.INTREAT ---
Date of service: 07/17/19 Time of Service: 15:06 PT Notes Visit Reasons: PELVIC FRACTURE Inpatient Physical Therapy Treatment Note [facility] Date: July 17, 2019 PRECAUTIONS: Fall, Standard, WBAT R LE SUBJECTIVE: Gela notes that she has little pain when lying still. Notes pain increases to 7/10 with transfers and mobility. She is determined to be able to go home vs a SNF. OBJECTIVE: PAIN: 3/10 lying in bed, 7/10 with activity BED MOBILITY/TRANSFERS Supine-sit: minAx1 with HOB at 10 degrees Sit-supine: ModAx1 with LE assist Sit-stand: minAx1 with FWW and verbal cueing for hand placement Stand-sit: CGA with cueing for proper hand placement GAIT Assistive Device: FWW Weight bearing: WBAT R LE Assist: CGA Distance: 5 steps from bed then 5 steps back to bed Deviation: step to pattern. Fearful to put too much weight thru the R LE. THEREX: Patient completed 20 reps of bilateral ankle pumps followed by supine hip flexion/abduction with left LE x10 each. She the completed 10 reps of alternate shoulder flexion and elbow flexion. ASSESSMENT: Gela tolerated supine to sit with much better pain control in PM than at time of IE in AM. She was able to get herself to standing with Matilda and use of walker. Tolerated a few steps and will continue to promote LE strength/ROM within tolerance to promote functional mobility and ambulation. PLAN: Continue with current POC progressing within symptom allowance promoting level of independence for patient to be able to return home upon discharge. TREATMENT CODE/TIME: [id number] 25 minutes, 14:40 PM
[2019-07-17 15:15] VITALS: BP 163/74; PULSE 65; RESP 17; TEMP 37; O2SAT 92
--- NOTE | 2019-07-17 15:43 | CHAPLAIN ---
Teri was resting in bed when I visited. She told me about the fall that brought her here with a fractured pelvis. Teri is a member of the [employer]. 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 Dami Bernstein doesn't know she is here and she declined my offer to call him. 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 Aidee recently went to a usp in [place], [place] and Teri said she misses Aidee a great deal. Teri's son is local and was at her house when she fell. Teri walked a few steps with PT this afternoon and was excited about that. She seems to be comfortable being here, but said she doesn't not wan to go to a rehab facility. That's not for me, she said.
[2019-07-17 19:50] VITALS: BP 152/69; PULSE 69; RESP 19; TEMP 36.4; O2SAT 93
[2019-07-17] MEDS: Docusate Sodium 100 MG CAP PO (19:50)
[2019-07-17] MEDS: Enoxaparin 40 MG/0.4 ML SYR SC (19:50)
[2019-07-17] MEDS: Melatonin 3 MG TAB PO (21:23)
[2019-07-18 03:39] VITALS: BP 173/75; PULSE 63; RESP 19; TEMP 36.6; O2SAT 95
[2019-07-18] MEDS: Normal Saline 1,000 ML 75 ML IV ×2 (05:26→18:21)
[2019-07-18] MEDS: Ketorolac 15 MG/ML VIAL IVP ×3 (05:40→17:22)
[2019-07-18 06:10] LABS: Bilirubin Negative (Negative); Blood Negative (Negative); Clarity Clear (Clear); Glucose 250 mg/dL (Negative); Ketones Negative (Negative); Leukocyte Esterase Negative (Negative); Nitrite Negative (Negative); Specific Gravity 1.025 (1.005-1.025); Urobilinogen 0.2 EU/dL (Up TO 0.2)
[2019-07-18 07:20] VITALS: BP 157/64; PULSE 66; RESP 17; TEMP 36.7; O2SAT 94
[2019-07-18] MEDS: Budesonide/Formoterol 160/4.5 6 GM 60 PUFF INH IH ×2 (07:54→19:58)
[2019-07-18] MEDS: Albuterol HFA 8 GM 60 PUFF INH IH (07:55)
[2019-07-18] MEDS: Simvastatin 40 MG TAB PO (08:02)
[2019-07-18] MEDS: FLUoxetine 20 MG CAP PO (08:02)
[2019-07-18] MEDS: Gabapentin 100 MG CAP PO ×3 (08:02→19:57)
[2019-07-18] MEDS: Esomeprazole 20 MG CAPCR PO ×2 (08:02→19:56)
[2019-07-18] MEDS: Metoprolol 25 MG TAB PO ×2 (08:02→20:01)
[2019-07-18] MEDS: Montelukast 10 MG TAB PO (08:02)
[2019-07-18] MEDS: Acetaminophen 500 MG TAB 1000 MG PO ×3 (08:03→19:56)
[2019-07-18] MEDS: predniSONE 20 MG TAB 40 MG PO (08:03)
[2019-07-18] MEDS: Docusate Sodium 100 MG CAP PO ×2 (08:13→19:57)
[2019-07-18] MEDS: oxyCODONE 5 MG TAB PO ×2 (08:19→20:05)
[2019-07-18 09:25] LABS: Hemoglobin A1C 6.4 % (3.8-5.6)
--- NOTE | 2019-07-18 09:35 | PDOC.CMPRO ---
- If Service Date Differs Date of service: 07/18/19 Time of Service: 09:35 Care Management Progress Note S/O:Gela was sitting up in bed when CM met with her. She was smiling and readily engaged in conversation. Gela shared proudly that she had been able to walk with PT this morning and that her pain was much better. Gela has requested assistance from CM with the completion of Advanced Directives. CM provided her with a blank copy and will assist her as needed. A: Teri is a pleasant 78 year old woman admitted on 07/16/19 with a pelvic fracture P:Gela will likely be discharged home when medically ready, although she may need a short stay in swingbed status. She will follow up with her PCP and discharge plan of care. CM will continue to support patient, family and discharge planning needs and concerns. cc:
--- NOTE | 2019-07-18 11:29 | PGE_ITS ---
Date of Service Date of service: 07/18/19 Time of Service: 11:29 Assessment and Plan Assessment and plan (1) Pelvic fracture: Status: Acute Assessment and plan: Pain better managed on scheduled tylenol and toradol. continue to work with PT. today was ambulating in [place] with walker. continue pain management and increased ambulation. has 4 steps at her house she will need to navigate to get in. I/S q2h while awake. (2) Asthma exacerbation: Status: Acute Assessment and plan: stable and improving. continue steroid burst. (3) Urinary retention: Status: Suspected Assessment and plan: resolved, no evidence of urinary retention, bladder scan showed less than 50cc post void. (4) DVT prophylaxis: Status: Acute Assessment and plan: lovenox, teds, scds, increasing ambulation (5) Discharge planning issues: Status: Acute Assessment and plan: patient may benefit from a short SNF stay prior to returning home. continue PT, case management following. Subjective Subjective Patient reports: feels better, still having pain, pain is less, tolerating a regular diet, voiding w/o difficulty and afebrile; denies shortness of breath Exam Const General: cooperative, healthy appearing, comfortable, no acute distress and well developed Nutritional Appearance: overweight Orientation: alert, awake and oriented x3 HENMT Head: normal to inspection Mouth: oral mucosae normal Resp Effort & Inspection: normal respiratory effort, able to speak in complete sentences, no audible wheezes and no respiratory distress Auscultation: wheezes expiratory wheezes and scattered wheezes (faint) Cardio Rate: regular rate Rhythm: regular rhythm GI Inspection: normal to inspection and obesity (round) Palpation: soft Auscultation: normal bowel sounds Skin General skin exam: no rashes or lesions noted Neuro General: patient alert, patient awake and patient oriented x3 Cognition: normal cognition Speech: speech normal Extrem General: normal to inspection and abnormal ROM (slightly limited d/t pain on right side, ) Psych Appearance: grossly normal Mental Status: mental status grossly normal Speech and Movement: speech and movement normal Mood: congruent mood Affect: normal affect Attitude: cooperative Thought Process: normal Objective Objective Clinical Data: Abnormal lab results 07/17/19 07/17/19 07/18/19 Range/Units 08:20 08:20 05:45 BUN 19 H (7-18) mg/dL Hemoglobin A1c 6.4 H (3.8-5.6) % Calcium 8.4 L (8.5-10.1) mg/dL Conjugated Bilirubin 0.25 H (0.00-0.20) mg/dL Urine Glucose 250 H (Negative) mg/dL Vital Signs Temperature 36.7 C 07/18/19 07:20 Temperature Source Temporal Artery Scan 07/18/19 07:20 Pulse 66 07/18/19 07:20 Pulse Rhythm Regular 07/18/19 08:00 Respiratory Rate 17 07/18/19 07:20 Respiratory Effort Non-Labored 07/18/19 08:00 Respiratory Depth Normal 07/18/19 08:00 Respiratory Pattern Normal 07/18/19 08:00 Blood Pressure 157/64 H 07/18/19 07:20 Blood Pressure Mean 82 07/16/19 18:34 Blood Pressure Position Supine 07/16/19 15:21 Pulse Oximetry 94 L 07/18/19 07:20 Oxygen Delivery Method Room Air 07/18/19 07:20 Oxygen Flow Rate 0 07/18/19 07:20 Pain Level 0 07/18/19 07:20 Intake & Output 07/17/19 07/17/19 07/18/19 11:59 23:59 11:59 Intake Total 1000 / 2310 1310 / 2310 1010 / 1010 Output Total 200 / 1100 900 / 1100 760 / 760 Balance 800 / 1210 410 / 1210 250 / 250 Intake: IV 1000 / 1000 1010 / 1010 Oral 1310 / 1310 Output: Urine 200 / 1100 900 / 1100 760 / 760 Post Void Residual 0 / 0 Other: Urine Color Yellow Yellow Yellow Urine Appearance Clear Clear Clear Urine Odor Normal Normal Normal Voiding Methods Bedpan Bedpan Bedpan Laboratory Results WBC 6.02 k/cumm (4.4-10.8) 07/17/19 08:20 RBC 4.26 m/cumm (4.00-5.20) 07/17/19 08:20 Hgb 13.1 g/dL (12.0-15.5) 07/17/19 08:20 Hct 38.2 % (36.0-46.0) 07/17/19 08:20 MCV 89.7 fL (80-95) 07/17/19 08:20 MCH 30.8 pg (27.0-33.0) 07/17/19 08:20 MCHC 34.3 g/dL (32.0-36.0) 07/17/19 08:20 RDW 12.5 % (11.7-14.6) 07/17/19 08:20 Plt Count 189 x1000/uL (130-400) 07/17/19 08:20 MPV 10.3 fL (8.0-11.0) 07/17/19 08:20 Immature Gran % 0.5 % 07/17/19 08:20 Neutrophils % 51.8 07/17/19 08:20 Lymphocytes % 30.7 07/17/19 08:20 Monocytes % 12.5 07/17/19 08:20 Eosinophils % 4.0 07/17/19 08:20 Basophils % 0.5 07/17/19 08:20 Absolute Neutrophils 3.12 k/cumm (1.2-6.7) 07/17/19 08:20 Absolute Lymphocytes 1.85 k/cumm (1.2-3.4) 07/17/19 08:20 Absolute Monocytes 0.75 k/cumm (0.11-0.7) H 07/17/19 08:20 Absolute Eosinophils 0.24 k/cumm (0.0-0.7) 07/17/19 08:20 Absolute Basophils 0.03 k/cumm (0.0-0.2) 07/17/19 08:20 PT 10.5 sec (9.3-11.0) 07/17/19 08:20 INR 1.0 (0.9-1.1) 07/17/19 08:20 Sodium 140 mmol/L (136-145) 07/17/19 08:20 Potassium 3.7 mmol/L (3.5-5.1) 07/17/19 08:20 Chloride 106 mmol/L (98-107) 07/17/19 08:20 Carbon Dioxide 25.7 mmol/L (21.0-32.0) 07/17/19 08:20 Anion Gap 8.3 mmol/L (3-11) 07/17/19 08:20 BUN 19 mg/dL (7-18) H 07/17/19 08:20 Creatinine 0.76 mg/dL (0.55-1.02) 07/17/19 08:20 Estimated GFR/1.73 m2 >= 60.00 (mL/min/1.73m2) 07/17/19 08:20 Glucose 103 mg/dL (74-106) 07/17/19 08:20 Hemoglobin A1c 6.4 % (3.8-5.6) H 07/17/19 08:20 Calcium 8.4 mg/dL (8.5-10.1) L 07/17/19 08:20 Magnesium 1.8 mg/dL (1.8-2.4) 07/17/19 08:20 Total Bilirubin 1.0 mg/dL (0.2-1.0) 07/17/19 08:20 Conjugated Bilirubin 0.25 mg/dL (0.00-0.20) H 07/17/19 08:20 AST 18 U/L (15-37) 07/17/19 08:20 ALT 28 U/L (14-59) 07/17/19 08:20 Alkaline Phosphatase 62 U/L (46-116) 07/17/19 08:20 Creatine Kinase 120 U/L (26-192) 07/17/19 08:20 Troponin I < 0.05 ng/Ml (<0.06) 07/17/19 08:20 Total Protein 6.6 g/dL (6.4-8.2) 07/17/19 08:20 Albumin 3.7 g/dL (3.4-5.0) 07/17/19 08:20 Procalcitonin < 0.1 ng/mL 07/17/19 08:20 Urine Color Yellow (Yellow) 07/18/19 05:45 Urine Clarity Clear (Clear) 07/18/19 05:45 Urine pH 6.0 (5-8) 07/18/19 05:45 Ur Specific [place] 1.025 (1.005-1.025) 07/18/19 05:45 Urine Protein Negative mg/dL (Negative) 07/18/19 05:45 Urine Ketones Negative mg/dL (Negative) 07/18/19 05:45 Urine Blood Negative (Negative) 07/18/19 05:45 Urine Nitrite Negative (Negative) 07/18/19 05:45 Urine Bilirubin Negative (Negative) 07/18/19 05:45 Urine Urobilinogen 0.2 EU/dL (Up TO 0.2) 07/18/19 05:45 Ur Leukocyte Esterase Negative (Negative) 07/18/19 05:45 Urine Glucose 250 mg/dL (Negative) H 07/18/19 05:45 COVID-19 PCR Negative (Negative) 07/16/19 18:40 Nasopharyn COVID-19 PCR Not Applicable 07/16/19 18:40 Ref Test Perform Site [facility] hospital lab 07/16/19 18:40
[2019-07-18] MEDS: fentaNYL 100 MCG/2 ML VIAL 50 MCG IVP (12:24)
--- NOTE | 2019-07-18 13:00 | PT.INTREAT ---
Date of service: 07/18/19 Time of Service: 12:45 PT Notes Visit Reasons: PELVIC FRACTURE Inpatient Physical Therapy Treatment Note [facility] Date: July 18, 2019 PRECAUTIONS:Standard, Falls, WBAT R SUBJECTIVE: Gela notes that she is feeling much better today. She was able to get herself up sitting on edge of bed without difficulty. She notes that she wants to be able to go home upon discharge. Patient notes lightheadedness in p.m. session OBJECTIVE: PAIN: 4/10 right pelvis BED MOBILITY/TRANSFERS Rolling L/R: Independent Supine-sit: Independent Sit-supine: Independent Sit-stand: Supervision Stand-sit: Supervision GAIT Assistive Device: FWW Weight bearing: WBAT R LE Assist: CGA Distance: AM session 50 feet x 2, step to fashion, PM session 150 feet step to fashion Deviation: No loss of balance noted, definite fatigue with p.m. session THEREX: Session 1: Ankle pumps x20 reps, long arc quads 10 times right/left, heel slides 10 times, seated hip flexion x10, elbow flexion x10, shoulder flexion x10. Session 2 ankle pumps x20, longer quad 15 reps right/left, seated hip flexion right/left 10 times each, shoulder flexion 15 times, elbow flexion 15 times. ASSESSMENT: Gela doing significantly better in comparison to PT consult. Independent bed mobility. Supervision only with sit to stand transfer and occasional cueing needed for proper hand placement. Continues to fatigue with prolonged ambulation however able to go further each session. PLAN: Continue current plan of care promoting functional transfers, activity tolerance, strength and stabilization to promote return to home once medically cleared. TREATMENT CODE/TIME: Session 1: [id number] 25 minutes 8:45 AM; Session 2: [id number], [id number] 25 minutes 12:35PM Disclaimer: This note was created using [employer] voice recognition software. It was reviewed for major content. However, there may be multiple small discrepancies and errors due to the voice recognition aspects of the software.
[2019-07-18 15:33] VITALS: BP 180/78; PULSE 61; RESP 19; TEMP 36.1; O2SAT 94
[2019-07-18 18:51] VITALS: BP 168/64
[2019-07-18] MEDS: Enoxaparin 40 MG/0.4 ML SYR SC (19:57)
[2019-07-18] MEDS: Melatonin 3 MG TAB PO (21:38)
[2019-07-19 00:05] VITALS: BP 164/57; PULSE 62; RESP 18; TEMP 36.8; O2SAT 95
[2019-07-19] MEDS: Ketorolac 15 MG/ML VIAL IVP ×2 (00:10→06:04)
[2019-07-19] MEDS: Albuterol HFA 8 GM 60 PUFF INH IH (04:22)
[2019-07-19 04:42] VITALS: BP 174/67; PULSE 60; RESP 18; TEMP 36.6; O2SAT 98
[2019-07-19 04:45] LABS: Vitamin D 25 Total 37.7 ng/ml (30-100)
[2019-07-19] MEDS: Normal Saline 1,000 ML 75 ML IV (06:05)
[2019-07-19 07:07] VITALS: BP 172/68; PULSE 54; RESP 17; TEMP 36.2; O2SAT 95
[2019-07-19] MEDS: Budesonide/Formoterol 160/4.5 6 GM 60 PUFF INH IH (07:32)
[2019-07-19] MEDS: Esomeprazole 20 MG CAPCR PO (08:32)
[2019-07-19] MEDS: Acetaminophen 500 MG TAB 1000 MG PO (08:32)
[2019-07-19] MEDS: Montelukast 10 MG TAB PO (08:32)
[2019-07-19] MEDS: Simvastatin 40 MG TAB PO (08:32)
[2019-07-19] MEDS: FLUoxetine 20 MG CAP PO (08:32)
[2019-07-19] MEDS: oxyCODONE 5 MG TAB PO (08:32)
[2019-07-19] MEDS: Metoprolol 25 MG TAB PO (08:32)
[2019-07-19] MEDS: predniSONE 20 MG TAB 40 MG PO (08:33)
[2019-07-19] MEDS: Gabapentin 100 MG CAP PO (08:33)
[2019-07-19] MEDS: Docusate Sodium 100 MG CAP PO (08:33)
--- NOTE | 2019-07-19 09:26 | INDS_ITS ---
Date of service: 07/19/19 Time of Service: 09:26 PT Notes Visit Reasons: PELVIC FRACTURE Inpatient Physical Therapy Discharge Summary Dates: 07/19/2019 Dates of Service: 07/17/2019 through 07/19/2019 Referring Doctor: Gerardo Ramos PT Orders: PT CONSULT: Precautions: Standard, right sided fracture of the pubic bone inf/sup rami Patient Profile/Admitting Diagnosis: Teri is 78 year old female admitted s/p fall resulting in fracture of the pubic bone of the right inferior/superior rami with mild displacement. 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 Asthma (Chronic) Gastroparesis (Chronic) GERD (gastroesophageal reflux disease) (Chronic) H/O: pneumonia (Inactive) Headache (Inactive) HTN (hypertension) (Chronic) Hypercholesterolemia (Chronic) Osteoarthritis (Chronic) Peptic ulcer (Inactive) Unilateral inguinal hernia (Inactive) Surgical History Arthroscopy, Shoulder LEFT Biopsy of breast (~2005) LEFT Cholecystectomy Extraction of cataract 06/11/13; RIGHT 06/26/13; LEFT FX ARM (02/15/14) PLATE AND SCREWS History of cataract removal with insertion of prosthetic lens (Inactive) Hysterectomy, Laproscopic 1 ovary remains Status post arthroscopy of shoulder (Inactive) Status post breast biopsy (Inactive) Status post cholecystectomy (Inactive) Status post laparoscopic hysterectomy (Inactive) Social History/Home Situation: She reports currently her son and daughter in law are staying with her. She notes complete independence prior to her fall at baseline. She reports of 4 steps to enter home. Once inside 1 level living. Does have a walk-in shower. Also has providers at the bathroom. Current Functional Limitations: Inability to sit, stand, or walk due to severe pain in her right pelvis Equipment Owned/DME: Walker, cane, shower seat, grab bars Subjective: Patient is agreeable to stay here at the hospital under swing bed level 1 status for continued physical therapy scaling. She refused to go to a [facility] facility as she feels that she has a higher chance of catching COVID-19 over there. She is agreeable to staying here for a week at most for continued physical therapy services. Objective: General Observation: IV left upper extremity Mental Status: Alert and oriented x3 Pain: 7/10 with a level surface ambulation, 8-9/10 with stair negotiation ROM: Right Upper Extremity: Demonstrates full active right upper extremity range of motion Left Upper Extremity: Demonstrates full active left upper extremity range of motion Right Lower Extremity: Hip flexion tolerable to 80 degrees, abduction 20 degrees, knee flexion 90 degrees, knee extension 0 degrees, ankle dorsiflexion/plantarflexion within normal limits Left Lower Extremity: Demonstrates full active left lower extremity range of motion Strength: Right Upper Extremity: Demonstrates 5/5 all right upper extremity myotomes Left Upper Extremity: Demonstrates 5/5 left upper extremity myotomes Right Lower Extremity: N/T Left Lower Extremity: Independent straight leg raise in supine. Demonstrates good quad activation with quad sets. Ankle dorsiflexion/plantarflexion 5/5 Sensation: Demonstrates intact light touch Bed Mobility/Transfers: Sit to stand supervision using both hands for support, minimal verbal cues needed for hand placement Stand to sit supervision using both hands for support, minimal verbal cues needed for hand placement Bed to chair supervision using both hands for support, minimal verbal cues needed for hand placement Chair to bed supervision using both hands for support, minimal verbal cues needed for hand placement Gait: Patient tolerated level surface ambulation of 150?2 with step to gait pattern using front wheeled walker with weightbearing as tolerated on the right LE requiring only standby assist but with pain complaint of 7/10 on the pelvic area. Patient was also able to tolerate up-and-down three 4 inch steps while holding onto bilateral rails using step to gait pattern with pain complaint of 8-9/10 requiring standby assist of PT. Balance: Static Sitting: Normal Dynamic Sitting: Normal Static Standing: Good Dynamic Standing: Fair Assessment: Patient converts from acute care level to swing bed level 1 as of today. Patient is a 78 year old female referred to physical therapy services with the diagnosis of status post pelvic fracture, s/p fall. Patient presents with clinical signs and symptoms consistent with diagnosis. Teri demonstrates difficulty with all transfers, bed mobility and ambulation tolerance due to pain s/p pelvic fracture, will need front wheeled walker for all mobility ADL performance, due to lack of right lower extremity weakness, balance impairment, and unsteadiness of feet resulting to a functional mobility decline and increased risk for falls. Patient continues to present with clinical signs and symptoms consistent with current/admitting diagnoses that have resulted to mobility limitations, gait instability, generalized weakness, and impairment of motor control as demonstrated by the following impairment level findings: 1. Decreased strength to R LE major muscle groups 2. Impaired sitting/standing balance 3. Impaired activity tolerance 4. Limited ROM of Right hip Impairments are continuing to contribute to the following functional limitations: 1. Dependent bed mobility skills 2. Increased dependence with transfers 3. Inability to safely ambulate without assistive device and physical assistance 4. Increase completion time for mobility ADL performance 5. Increased fall risk 6. Inability to negotiate steps alone safely Goals: Goals X1 week 1. Supine-Sit independent NOT MET 2. Sit-Supine independent NOT MET 3. Sit-Stand supervision MET 4. Stand-Sit supervision MET 5. Bed-Chair supervision with FWW MET 6. Chair-Bed supervision with FWW MET 7. Independent gait on level surface with use of least restrictive device for at least 200 feet without report of pain nor dyspnea NOT MET 8. Independent stair negotiation while holding onto bilateral rails for at least 3 steps without report of pain nor dyspnea NOT MET 9. Independent with home exercise program NOT MET 10. Good static and dynamic standing balance/tolerance NOT MET DISCHARGE RECOMMENDATIONS: Patient will be re-evaluated under swing bed level 1 for continued physical therapy skilling anticipation of discharge to home. Patient will benefit from home health PT services or possible need of SNF in order to progress mobility level using least restrictive assistive ambulatory device, assess home safety, identify additional equipment needs, and establish a functional maintenance program that will increase ability of patient to remain at home or SNF to promote independence at home. TREATMENT CODE/TIME: 62587 x 33 minutes beginning at 9:26 AM Thank you very much for this referral. Zaria Lee PT, DPT, CLT [facility] at [place], [place]
--- NOTE | 2019-07-19 09:59 | W.PM.DS.N ---
Date of service: 07/19/19 Time of Service: 10:00 DS: Diagnosis Discharge Diagnosis (1) Pelvic fracture: Status: Acute (2) Asthma exacerbation: Status: Acute (3) Urinary retention: Status: Suspected Discharge Plan Disposition Patient Disposition: [facility] SWING BED LEVEL 1 Condition: Good Discharge Details Chief Complaint: Orthopedic Reason For Visit: PELVIC FRACTURE Admit Date/Time: 07/16/19 18:00 Admit Provider: Gerardo Ramos Attending Provider: Gerardo Ramos Primary Care Provider: Kingsley Werner ED Provider: Deborah Cano 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 She reports that there was no preceding symptoms, no lightheadedness/palpitations/pain, and states that fall was mechanical. She was unable to bear weight on her right lower extremity. Work-up in the emergency department was consistent with a pelvic fracture. She was admitted to the medical surgical unit for further management. Her pain was hard to manage at first but she was slowly re-ambulated. She was working with physical therapy. She is eating and drinking bowels and bladder have been functioning. Physical therapy does feel she could benefit from some additional inpatient rehabilitation prior to discharging to home. She will therefore be discharged to swing level status for ongoing rehabilitation. Her hospital course was also complicated by exacerbation of her asthma. Chest x-ray was negative for any evidence of pneumonia or infection. She was ruled out for COVID-19 [facility]. She was started on an oral steroid burst. Her respiratory status remained stable she had no oxygen requirements and no symptoms of respiratory distress. She was afebrile and hemodynamically stable. Plan of care and discharge plan was discussed with Dr. Alanis who is in agreement. Greater than 35 minutes was spent on discharge plan Home Meds and New Rx's Prescriptions: Continued fluoxetine [Prozac] 20 mg capsule 20 mg PO DAILY Qty: 90 RF: 4 esomeprazole magnesium [Nexium] 40 MG capsule,delayed release(DR/EC) 20 mg PO BID Qty: 180 RF: 3 albuterol sulfate [ProAir HFA] 8.5 GM HFA aerosol inhaler 2 puff Inhalation QID PRNQty: 3 RF: 4 cholecalciferol (vitamin D3) 2,000 UNIT tablet 2,000 unit PO DAILY RF: 0 montelukast [Singulair] 10 mg tablet 10 mg PO DAILY Qty: 90 RF: 4 simvastatin [Zocor] 40 mg tablet 40 mg PO DAILY Qty: 90 RF: 4 metoprolol tartrate 25 mg tablet 25 mg PO BID Qty: 180 RF: 3 fluticasone propionate [Flonase] 16 GM spray,suspension 2 spry NS DAILY PRNRF: 0 fluticasone propion-salmeterol [Advair Diskus] 250-50 mcg/dose Blister With Device 1 puff Inhalation PRN PRNRF: 0 meclizine 25 mg tablet 25 mg PO TID PRN (Reason: dizziness) Qty: 10 RF: 0 Discharge Instructions Instructions: Pelvic Fracture (DC) Activity:: walker Equipment/Supplies:: Walker Diet:: As Tolerated Discharge Orders Discharge Orders: Discharge Order (Routine); Ordered 07/19/19 Ordered By: Shayla Rowley DS: Summary Status at Discharge Functional status at discharge: uses cane/walker Overall status at discharge: patient is progressing back to baseline Mental Status: mental status grossly normal Speech and Movement: speech and movement normal Mood: congruent mood Affect: normal affect Exam Const General: cooperative, healthy appearing, comfortable, no acute distress and well developed Nutritional Appearance: overweight Orientation: alert, awake and oriented x3 HENMT Head: normal to inspection Mouth: oral mucosae normal Resp Effort & Inspection: normal respiratory effort, able to speak in complete sentences, no audible wheezes and no respiratory distress Auscultation: wheezes expiratory wheezes and scattered wheezes (faint) Cardio Rate: regular rate Rhythm: regular rhythm GI Inspection: normal to inspection and obesity (round) Palpation: soft Auscultation: normal bowel sounds Skin General skin exam: no rashes or lesions noted Neuro General: patient alert, patient awake and patient oriented x3 Cognition: normal cognition Speech: speech normal Extrem General: normal to inspection and abnormal ROM (slightly limited d/t pain on right side, ) Psych Appearance: grossly normal Mental Status: mental status grossly normal Speech and Movement: speech and movement normal Mood: congruent mood Affect: normal affect Attitude: cooperative Thought Process: normal DS: Data Vitals/I&O Vitals and I&O: Vital Signs Temperature 36.2 C L 07/19/19 07:07 Temperature Source Temporal Artery Scan 07/19/19 07:07 Pulse 54 L 07/19/19 07:07 Pulse Rhythm Regular 07/19/19 08:30 Respiratory Rate 17 07/19/19 07:07 Respiratory Effort Non-Labored 07/19/19 08:30 Respiratory Depth Normal 07/19/19 08:30 Respiratory Pattern Normal 07/19/19 08:30 Blood Pressure 172/68 H 07/19/19 07:07 Blood Pressure Mean 82 07/16/19 18:34 Blood Pressure Position Supine 07/16/19 15:21 Pulse Oximetry 95 07/19/19 07:07 Oxygen Delivery Method Room Air 07/19/19 07:07 Oxygen Flow Rate 0 07/19/19 07:07 Pain Level 3 07/19/19 08:32 Comment 07/18/19 18:51 Intake & Output 07/18/19 07/18/19 07/19/19 11:59 23:59 11:59 Intake Total 1010 / 3905.0 2895.0 / 3905.0 1120 / 1120 Output Total 1160 / 2610 1450 / 2610 613 / 613 Balance -150 / 1295.0 1445.0 / 1295.0 507 / 507 Intake: IV 1010 / 2945.0 1935.0 / 2945.0 880 / 880 Oral 960 / 960 240 / 240 Output: Urine 1160 / 2610 1450 / 2610 600 / 600 Post Void Residual Other: Urine Color Yellow Yellow Yellow Urine Appearance Clear Clear Clear Urine Odor Normal Normal None Voiding Methods Bedside Commode Bedpan Data Completed and Pending Labs on day of discharge: Labs from last 24 hours 07/17/19 07:48 25-OH Vitamin D Total 37.7 Preliminary micro results at discharge 07/18/19 05:45 Urine Culture - Preliminary Urine - Clean Catch Gram Negative Dave Gram Negative Dave#2 Gram Positive Shonda,Mixed [facility] Medical History Acute bacterial bronchitis (Inactive) Arthritis of left knee (Resolved) s/p total knee Asthma (Chronic) Gastroparesis (Chronic) GERD (gastroesophageal reflux disease) (Chronic) H/O: pneumonia (Inactive) Headache (Inactive) HTN (hypertension) (Chronic) Hypercholesterolemia (Chronic) Osteoarthritis (Chronic) Peptic ulcer (Inactive) Unilateral inguinal hernia (Inactive) Surgical History Arthroscopy, Shoulder LEFT Biopsy of breast (~2005) LEFT Cholecystectomy Extraction of cataract 06/11/13; RIGHT 06/26/13; LEFT FX ARM (02/15/14) PLATE AND SCREWS History of cataract removal with insertion of prosthetic lens (Inactive) Hysterectomy, Laproscopic 1 ovary remains Status post arthroscopy of shoulder (Inactive) Status post breast biopsy (Inactive) Status post cholecystectomy (Inactive) Status post laparoscopic hysterectomy (Inactive) Family History Mother Diabetes Essential hypertension Depression Heart disease Hyperlipidemia Father , WW II at age 24. No problems noted. Brother Diabetes Essential hypertension Hyperlipidemia Neoplasm MELANOMA Grandfather Diabetes Essential hypertension Grandfather Essential hypertension Heart disease Hyperlipidemia Grandmother Essential hypertension Neoplasm Stroke Grandmother Diabetes Blood disease Neoplasm COLON FAMILY HISTORY Myocardial infarction Son Substance abuse Depression Hyperlipidemia Daughter Diabetes Depression Hyperlipidemia Asthma Social History Smoking/Tobacco Use Status: Never Alcohol Intake: current Alcohol Intake frequency: holidays/special occasions only Alcohol type: hard liquor Drug use: Never Substance use type: does not use Do you feel safe at home: Yes Do you feel safe in your relationship?: Yes
--- NOTE | 2019-07-19 11:42 | CHAPLAIN ---
Gela said she was relieved to find out she could swing here for a few more days. She said she will not go to a rehab, so is happy to stay here. She has been waling, and did some stairs yesterday, although she said that was painful but she has four steps to get into her house. Gela is a member of the [employer] and gave me permission to let her deck supervisor, Rev. Dami Bernstein know that she is here. I left a message with his geriatric nurse assistant.
--- NOTE | 2019-07-20 10:26 | PDOC.CMPRO ---
- If Service Date Differs Date of service: 07/20/19 Time of Service: 10:26 Care Management Progress Note Gela will be admitted into swing bed today . She will continue working with PT until she can ambulate safely and her pain is under control.
== END 2019-07-19 11:56 | disposition swing bed (61) | DRG 536 ==
LOC: ER 18:49 → MS 19:04
PROVIDERS: Admitting Provider General Practice; Emergency Provider Student in an Organized Health Care Education/Training Program; PCP Family Medicine; Visit Provider Internal Medicine
DX: S32.591A Other specified fracture of right pubis, initial encounter for closed fracture (principal); J45.901 Unspecified asthma with (acute) exacerbation; G89.11 Acute pain due to trauma; W07.XXXA Fall from chair, initial encounter; Y93.E9 Activity, other interior property and clothing maintenance; Y92.019 Unspecified place in single-family (private) house as the place of occurrence of the external cause; Z03.818 Encounter for observation for suspected exposure to other biological agents ruled out; I10 Essential (primary) hypertension; K21.9 Gastro-esophageal reflux disease without esophagitis; F32.9 Major depressive disorder, single episode, unspecified
CPT/HCPCS: 36415; 80048; 80076; 82306; 82550; 84145; 94640; 96374; 96375; 97110; 97162; 97530; 99222; 99232; 99233; 99239; 99285; J1650; U0003; 71045; 72170; 73501; 81003; 83036; 83735; 84484; 85025; 85610; 87086; J1885; J3010; J7512

== ENCOUNTER 2019-07-19 11:49 | Inpatient (IN) | payer MEDICARE, SELFPAY ==
--- NOTE | 2019-07-19 11:51 | HPE_ITS ---
Date of service: 07/19/19 Time of Service: 11:51 Assessment and Plan Assessment and plan (1) Pelvic fracture: Status: Acute Assessment and plan: pain still inhibiting rehab but improving slowly. will continue current scheduled pain regimen. continue PT. (2) Asthma exacerbation: Status: Acute Assessment and plan: improving, will finish out steroid burst. continue current inhalers. (3) DVT prophylaxis: Status: Acute Assessment and plan: continue enoxaparin and teds (4) Discharge planning issues: Status: Acute Assessment and plan: case management following, will likely discharge home with no services once she has met her full rehab potential. I do not anticipate any services at discharge at this time. will continue to reassess ongoing. 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 She reports that there was no preceding symptoms, no lightheadedness/palpitations/pain, and states that fall was mechanical. She was unable to bear weight on her right lower extremity. Work-up in the emergency department was consistent with a pelvic fracture. She was admitted to the medical surgical unit for further management. Her pain was hard to manage at first but she was slowly re-ambulated. She was working with hospice massage therapist apy. She is eating and drinking bowels and bladder have been functioning. Physical therapy does feel she could benefit from some additional inpatient rehabilitation prior to discharging to home. She will therefore be discharged to [facility] level status for ongoing rehabilitation. Her hospital course was also complicated by exacerbation of her asthma. Chest x-ray was negative for any evidence of pneumonia or infection. She was ruled out for COVID-19 [facility]. She was started on an oral steroid burst. Her respiratory status remained stable she had no oxygen requirements and no symptoms of respiratory distress. She was afebrile and hemodynamically stable. Plan of care and discharge plan was discussed with Dr. Alanis who is in agreement. Review of Systems All systems reviewed & are unremarkable except as noted in HPI and below Musculoskeletal Musculoskeletal: Reports abnormal gait and Reports other (right hip/groin pain) Neurologic Neurologic: Reports abnormal gait [facility] Medical History Acute bacterial bronchitis (Inactive) Arthritis of left knee (Resolved) s/p total knee Asthma (Chronic) Gastroparesis (Chronic) GERD (gastroesophageal reflux disease) (Chronic) H/O: pneumonia (Inactive) Headache (Inactive) HTN (hypertension) (Chronic) Hypercholesterolemia (Chronic) Osteoarthritis (Chronic) Peptic ulcer (Inactive) Unilateral inguinal hernia (Inactive) Surgical History Arthroscopy, Shoulder LEFT Biopsy of breast (~2005) LEFT Cholecystectomy Extraction of cataract 06/11/13; RIGHT 06/26/13; LEFT FX ARM (02/15/14) PLATE AND SCREWS History of cataract removal with insertion of prosthetic lens (Inactive) Hysterectomy, Laproscopic 1 ovary remains Status post arthroscopy of shoulder (Inactive) Status post breast biopsy (Inactive) Status post cholecystectomy (Inactive) Status post laparoscopic hysterectomy (Inactive) Family History Mother Diabetes Essential hypertension Depression Heart disease Hyperlipidemia Father , WW II at age 24. No problems noted. Brother Diabetes Essential hypertension Hyperlipidemia Neoplasm MELANOMA Grandfather Diabetes Essential hypertension Grandfather Essential hypertension Heart disease Hyperlipidemia Grandmother Essential hypertension Neoplasm Stroke Grandmother Diabetes Blood disease Neoplasm COLON FAMILY HISTORY Myocardial infarction Son Substance abuse Depression Hyperlipidemia Daughter Diabetes Depression Hyperlipidemia Asthma Social History Smoking/Tobacco Use Status: Never Alcohol Intake: current Alcohol Intake frequency: holidays/special occasions only Alcohol type: hard liquor Drug use: Never Substance use type: does not use Do you feel safe at home: Yes Do you feel safe in your relationship?: Yes Meds Home Medications and Allergies Home Medications Medication Instructions Recorded Confirmed Type esomeprazole magnesium [Nexium] 20 mg PO BID #180 tab-cap 08/31/12 07/16/19 History fluticasone propionate [Flonase] 2 spry NS DAILY PRN 06/07/13 07/16/19 History albuterol sulfate [ProAir HFA] 2 puff INHALATION QID PRN #3 ea 03/21/17 07/16/19 History cholecalciferol (vitamin D3) 2,000 unit PO DAILY 07/18/17 07/16/19 History fluticasone propion-salmeterol 1 puff INHALATION PRN PRN 12/09/17 07/16/19 History [Advair Diskus] montelukast 10 mg tablet 10 mg PO DAILY #90 tab 05/18/18 07/16/19 Rx simvastatin 40 mg tablet 40 mg PO DAILY #90 tab-cap 05/18/18 07/16/19 Rx metoprolol tartrate 25 mg tablet 25 mg PO BID #180 tab 10/18/18 07/16/19 Rx fluoxetine 20 mg capsule 20 mg PO DAILY #90 cap 02/09/19 07/16/19 Rx meclizine 25 mg PO TID PRN #10 tab 03/30/19 07/16/19 Rx Allergies Allergy/AdvReac Type Severity Reaction Status Date / Time adhesive Allergy Severe SKIN RASH Verified 03/30/19 15:26 Sulfa (Sulfonamide Allergy Intermediate ITCHING Verified 03/30/19 15:26 Antibiotics) losartan Allergy Unknown SWELLING, Verified 03/30/19 15:26 ITCHING hydrocodone AdvReac Itching Verified 03/30/19 15:26 with high doses Exam Const General: cooperative, healthy appearing, comfortable, no acute distress and well developed Nutritional Appearance: average body habitus Orientation: alert, awake and oriented x3 HENMT Head: normal to inspection, normocephalic and atraumatic Mouth: oral mucosae normal Resp Effort & Inspection: normal respiratory effort Auscultation: no rales, no rhonchi and wheezes expiratory wheezes (faint) Cardio Rate: regular rate Rhythm: regular rhythm GI Inspection: normal to inspection Palpation: soft Auscultation: normal bowel sounds Skin General skin exam: no rashes or lesions noted Neuro General: patient alert, patient awake and patient oriented x3 Cognition: normal cognition Speech: speech normal Gait: gait assisted Method: walker Extrem General: normal to inspection Psych Appearance: grossly normal Mental Status: mental status grossly normal Mood: congruent mood Affect: normal affect COVID-19 Screening Traveled to [place] from one of the affected countries or regions?: NO
[2019-07-19] MEDS: Ketorolac 15 MG/ML VIAL IVP ×2 (12:22→17:20)
[2019-07-19] MEDS: Gabapentin 100 MG CAP PO ×2 (13:19→19:51)
[2019-07-19] MEDS: fentaNYL 100 MCG/2 ML VIAL 50 MCG IVP (13:19)
[2019-07-19] MEDS: Acetaminophen 500 MG TAB 1000 MG PO ×2 (13:19→19:54)
--- NOTE | 2019-07-19 13:25 | PHA.REVIEW ---
Pharmacy Admission Review - Admission Clinical Review (Last Reviewed 07/19/19 @ 11:52 by Shayla Rowley NP) Discharge planning issues (Acute) DVT prophylaxis (Acute) Asthma exacerbation (Acute) Pelvic fracture (Acute) adhesive Allergy (Severe, Verified 03/30/19 15:26) SKIN RASH Sulfa (Sulfonamide Antibiotics) Allergy (Intermediate, Verified 03/30/19 15:26) ITCHING losartan Allergy (Unknown, Verified 03/30/19 15:26) SWELLING, ITCHING hydrocodone Adverse Reaction (Verified 03/30/19 15:26) Itching with high doses Height 5 ft 4.17 in Weight 65.771 kg - Renal Dosing Medications needing adjustments: Reviewed - Anticoagulation DVT Prohphylaxis: Reviewed Medications: Enoxaparin - Opiate Usage Scheduled Bowel Reg ordered if on Opiates?: Yes - Relevant Labs Electrolytes, C-Reactive P, ESR: Reviewed - DM Control Insulin Dosing: N/A - Heart Failure/MT EF%, KRISTI's, B-Blockers, Diuretics: Reviewed - BP Control If elevated: Reviewed - Comments Comments/Follow Ups: Transferred to swing bed to complete additional PT as inpatient
--- NOTE | 2019-07-19 13:54 | IN_ITS ---
Date of service: 07/19/19 Time of Service: 13:54 PT Notes Visit Reasons: PELVIC FRACTURE Inpatient Physical Therapy Evaluation Dates: 07/19/2019 Referring Doctor: Shayla Rowley NP PT Orders/PT CONSULT: Limited ability. Swing bed level 1. Precautions: Fall. Standard. WBAT on the right LE. Patient Profile/Admitting Diagnosis: Patient is re-evaluated today under swing bed level 1. Teri is 78-year-old female admitted s/p fall resulting in fracture of the pubic bone of the right inferior/superior rami with mild displacement. 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 Asthma (Chronic) Gastroparesis (Chronic) GERD (gastroesophageal reflux disease) (Chronic) H/O: pneumonia (Inactive) Headache (Inactive) HTN (hypertension) (Chronic) Hypercholesterolemia (Chronic) Osteoarthritis (Chronic) Peptic ulcer (Inactive) Unilateral inguinal hernia (Inactive) Surgical History Arthroscopy, Shoulder LEFT Biopsy of breast (~2005) LEFT Cholecystectomy Extraction of cataract 06/11/13; RIGHT 06/26/13; LEFT FX ARM (02/15/14) PLATE AND SCREWS History of cataract removal with insertion of prosthetic lens (Inactive) Hysterectomy, Laproscopic 1 ovary remains Status post arthroscopy of shoulder (Inactive) Status post breast biopsy (Inactive) Status post cholecystectomy (Inactive) Status post laparoscopic hysterectomy (Inactive) Social History/Home Situation: She reports currently her son and daughter in law are staying with her. She notes complete independence prior to her fall at baseline. She reports of 4 steps to enter home. Once inside 1 level living. Does have a walk-in shower. Also has providers at the bathroom. Current Functional Limitations: Inability to sit, stand, or walk due to severe pain in her right pelvis Equipment Owned/DME: Walker, cane, shower seat, grab bars Subjective: Patient reports that Nurse Nguyễn made sure that she is premedicated for the second PT session this afternoon. She reports minimal pain with walking activity this afternoon. Objective: General Observation: IV left upper extremity. Wound dressing to R gluteal area. Small circumscribed hematoma seen on proximal lateral R thigh. Mental Status: Alert and oriented x3 Pain: 1-2/10 with a level surface ambulation, 7/10 with stair negotiation ROM: Right Upper Extremity: Demonstrates full active right upper extremity range of motion Left Upper Extremity: Demonstrates full active left upper extremity range of motion Right Lower Extremity: Hip flexion tolerable to 80 degrees, abduction 20 degrees, knee flexion 90 degrees, knee extension 0 degrees, ankle dorsiflexion/plantarflexion within normal limits Left Lower Extremity: Demonstrates full active left lower extremity range of motion Strength: Right Upper Extremity: Demonstrates 5/5 all right upper extremity myotomes Left Upper Extremity: Demonstrates 5/5 left upper extremity myotomes Right Lower Extremity: 3-/5 grossly Left Lower Extremity: Independent straight leg raise in supine. Demonstrates good quad activation with quad sets. Ankle dorsiflexion/plantarflexion 5/5 Sensation: Demonstrates intact light touch Bed Mobility/Transfers: Supine to sit supervision using BUE for support Sit to supine supervision using BUE for support Sit to stand supervision using both hands for support, minimal verbal cues needed for hand placement Stand to sit supervision using both hands for support, minimal verbal cues needed for hand placement Bed to chair supervision using both hands for support, minimal verbal cues needed for hand placement Chair to bed supervision using both hands for support, minimal verbal cues needed for hand placement Gait: Patient tolerated level surface ambulation of 150?2 with step to gait pattern using front wheeled walker with weight bearing as tolerated on the right LE requiring only supervision assist but with pain complaint of 1-2/10 on the pelvic area. Patient was also able to tolerate up-and-down six 4-inch steps and four 6-inch steps while holding onto bilateral rails using step to gait pattern with pain complaint of 7/10 requiring standby assist of PT. Balance: Static Sitting: Normal Dynamic Sitting: Normal Static Standing: Good Dynamic Standing: Fair Assessment: Patient converts from acute care level to swing bed level 1 as of today. Patient is a 78-year old female referred to physical therapy services with the diagnosis of status post pelvic fracture, s/p fall. Patient presents with clinical signs and symptoms consistent with diagnosis. Teri demonstrates difficulty with all transfers, bed mobility and ambulation tolerance due to pain s/p pelvic fracture, will need front wheeled walker for all mobility ADL performance, due to lack of right lower extremity weakness, balance impairment, and unsteadiness of feet resulting to a functional mobility decline and increased risk for falls. Patient continues to present with clinical signs and symptoms consistent with current/admitting diagnoses that have resulted to mobility limitations, gait instability, generalized weakness, and impairment of motor control as demonstra cheikh by the following impairment level findings: 1. Decreased strength to R LE major muscle groups 2. Impaired sitting/standing balance 3. Impaired activity tolerance 4. Limited ROM of Right hip Impairments are continuing to contribute to the following functional limitations: 1. Dependent bed mobility skills 2. Increased dependence with transfers 3. Inability to safely ambulate without assistive device and physical assistance 4. Increase completion time for mobility ADL performance 5. Increased fall risk 6. Inability to negotiate steps alone safely Goals: Goals X1 week 1. Supine-Sit independent 2. Sit-Supine independent 3. Sit-Stand independent 4. Stand-Sit independent 5. Bed-Chair independent 6. Chair-Bed independent 7. Independent gait on level surface with use of front wheeled walker for at least 200 feet without report of pain nor dyspnea NOT MET 8. Independent stair negotiation while holding onto bilateral rails for at least 5 steps without report of pain nor dyspnea NOT MET 9. Independent with home exercise program NOT MET 10. Good static and dynamic standing balance/tolerance NOT MET PT INTERVENTION: Session for this afternoon consisted of PT reevaluation under swing bed level 1 and continued training for progression of mobility ADL performance as well as instruction on room exercises. DISCHARGE RECOMMENDATIONS: Patient will benefit from home health PT services or possible need of SNF in order to progress mobility level using least restrictive assistive ambulatory device, assess home safety, identify additional equipment needs, and establish a functional maintenance program that will increase ability of patient to remain at home or SNF to promote independence at home. TREATMENT CODE/TIME: 12776 x25 minutes, 28456 x 18 minutes beginning at 1:54 PM. Thank you very much for this referral. Zaria Lee PT, DPT, CLT [facility] Inpatient PT at [place], [place]
[2019-07-19 15:10] VITALS: BP 191/61; PULSE 61; RESP 17; TEMP 36.6; O2SAT 94
--- NOTE | 2019-07-19 15:47 | CM.SWINGPC ---
- If Service Date Differs Date of service: 07/19/19 Time of Service: 15:47 Swingbed Plan of Care Plan of care: SWING BED PROGRAM ACTIVITIES/DISCHARGE PLAN OF CARE ACTIVITIES PLAN Date:07/19/19 Identified Need: Individualized plan of care Intervention/Plan: Gela enjoys watching TV and reading. She will be offered books from the [employer]. Gela also enjoys word searches and has been provided with a new book and pencils. She enjoys visiting with staff, talking on the phone and will be offered pet therapy, reike and music therapy when available. Initials [facility] DISCHARGE PLAN Date: 07/19/19 Identified Need: safe discharge plan Intervention/Plan: Gela will be discharged home when her pain is well controlled and she can safely ambulate. Her son and his girlfriend are visiting from [place] for the summer and will be available to help her Initials [facility]
--- NOTE | 2019-07-19 15:47 | CM.SBPSYCH ---
- If Service Date Differs Date of service: 07/19/19 Time of Service: 15:47 SB Psychosocial/Act.Assessment - Hospital Admission Admission Date: 07/16/19 Admission From:: ED Diagnosis:: pelvic fracture - Swing Bed Admission Swing Bed Admit Date:: 07/19/19 Swing Bed Level of Care: Level 1/SNF - Social Supports PREVIOUS FUNCTIONAL STATUS/SOCIAL/FAMILY SUPPORTS:: Teri lives alone in a mobile home in a [facility] in [place], [place]. Her son and his girlfriend are here for the summer and are staying with Gela. She has been for three years. 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 She has many close friends and before the pandemic, enjoyed line dancing and going out with her friends. - Prior to Admission Living Arrangements/Environment Prior to Admission:: Gela lives alone in a mobile home in [facility] in [place]. - Education Highest Grade Completed:: 12th Where did you attend School:: [employer] Special Education/Training:: Gela has worked all of her life. 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 who lives near her - : No 's Spouse: No - Benefits Financial: Social Security, Other Pension, Medicare, Commerical - Spiritism Active Restorationism Member:: Yes Restorationism Affliation: Ken García [employer] Product Development Director:: Pastor Dhaliwal Will Restorationism Members or Product Development Director Visit:: No - Advance Directives for Healthcare If no AD, do you want more information:: Yes - Interests Hobbies:: knitting, reading Crafts:: knitting Table Games:: plays table games with grandchildren Sports:: enjoys watching sports, especially football, and is a loyal Patriots fan Music:: country TV/Movies:: [employer] movies Outdoor Activities:: walking Gardening:: has flower gardens Reading:: enjoys reading mysteries Other Activities:: Gela also loves to dance and goes dancing frequently with 3 of her close girlfriends - Present Functional Status Physical Abilities:: independent Cognitive:: alert, oriented, intelligent Communication:: good verbal [id number] skills Sensory Systems: wears glasses and has a partial bridge - Medical History PAST MEDICAL HISTORY/PAST SURGICAL HISTORY:: Medical History . Acute bacterial bronchitis (Inactive). Arthritis of left knee (Resolved). s/p total knee. Asthma (Chronic). Gastroparesis (Chronic). GERD (gastroesophageal reflux disease) (Chronic). H/O: pneumonia (Inactive). Headache (Inactive). HTN (hypertension) (Chronic). Hypercholesterolemia (Chronic). Osteoarthritis (Chronic). Peptic ulcer (Inactive). Unilateral inguinal hernia (Inactive). Surgical History . Arthroscopy, Shoulder. LEFT. Biopsy of breast (~2005). LEFT. Cholecystectomy. Extraction of cataract. 06/11/13; RIGHT. 06/26/13; LEFT. FX ARM (02/15/14). PLATE AND SCREWS. History of cataract removal with insertion of prosthetic lens (Inactive). Hysterectomy, Laproscopic. 1 ovary remains. Status post arthroscopy of shoulder (Inactive). Status post breast biopsy (Inactive). Status post cholecystectomy (Inactive). Status post laparoscopic hysterectomy (Inactive) General Health:: good - Admission Data Reason for Swing Bed Admission:: Pain control and PT for ambulation and strengthening Discharge Plan:: Chucky will be discharged home with no new services Assessment: Gela is a very pleasant woman recovering from a pelvic fracture. She has been in a lot of pain which has compromised her ability to ambulate safely. Gela will work with PT then return home when ready. [employer] Driving: Livia Noel Date Assessment was completed:: 07/19/19
[2019-07-19 16:15] VITALS: BP 192/64
[2019-07-19] MEDS: Lisinopril 5 MG TAB PO (17:20)
[2019-07-19] MEDS: oxyCODONE 5 MG TAB PO (19:51)
[2019-07-19] MEDS: Esomeprazole 20 MG CAPCR PO (19:51)
[2019-07-19] MEDS: Docusate Sodium 100 MG CAP PO (19:51)
[2019-07-19] MEDS: Metoprolol 25 MG TAB PO (19:51)
[2019-07-19] MEDS: Budesonide/Formoterol 160/4.5 6 GM 60 PUFF INH IH (19:52)
[2019-07-19] MEDS: Enoxaparin 40 MG/0.4 ML SYR SC (19:52)
[2019-07-20] MEDS: Ketorolac 15 MG/ML VIAL IVP ×4 (00:06→17:49)
[2019-07-20] MEDS: Normal Saline Flush 10 ML SYR ×2 (00:38→06:11)
[2019-07-20 07:13] LABS: HCT 36.5 % (36.0-46.0); HGB 12.3 g/dL (12.0-15.5); Mean Corp. HGB Concentration 33.7 g/dL (32.0-36.0); Mean Corpuscular Hemoglobin 30.1 pg (27.0-33.0); Mean Corpuscular Volume 89.5 fL (80-95); Mean Platelet Volume 10.9 fL (8.0-11.0); Platelet Count 184 x1000/uL (130-400); RBC 4.08 m/cumm (4.00-5.20); RBC Distribution Width 12.6 % (11.7-14.6); White Blood Cell Count 6.65 k/cumm (4.4-10.8)
[2019-07-20 07:25] LABS: Anion Gap 8.5 mmol/L (3-11); BUN 31 mg/dL (7-18); CO2 26.5 mmol/L (21.0-32.0); CREATININE 0.99 mg/dL (0.55-1.02); Calcium 8.4 mg/dL (8.5-10.1); Chloride 107 mmol/L (98-107); Estimated GFR 54.39 (mL/min/1.73m2); Glucose 109 mg/dL (74-106); Potassium 3.7 mmol/L (3.5-5.1); Sodium 142 mmol/L (136-145)
[2019-07-20 07:31] VITALS: BP 170/81; PULSE 52; RESP 18; TEMP 37; O2SAT 99
[2019-07-20] MEDS: Montelukast 10 MG TAB PO (07:42)
[2019-07-20] MEDS: Gabapentin 100 MG CAP PO ×3 (07:42→20:01)
[2019-07-20] MEDS: Metoprolol 25 MG TAB PO ×2 (07:42→20:02)
[2019-07-20] MEDS: Acetaminophen 500 MG TAB 1000 MG PO ×3 (07:43→20:01)
[2019-07-20] MEDS: FLUoxetine 20 MG CAP PO (07:43)
[2019-07-20] MEDS: Docusate Sodium 100 MG CAP PO ×2 (07:43→20:02)
[2019-07-20] MEDS: Esomeprazole 20 MG CAPCR PO ×2 (07:43→20:02)
[2019-07-20] MEDS: predniSONE 20 MG TAB 40 MG PO (07:43)
[2019-07-20] MEDS: Lisinopril 5 MG TAB PO (07:43)
[2019-07-20] MEDS: Budesonide/Formoterol 160/4.5 6 GM 60 PUFF INH IH ×2 (08:13→20:06)
[2019-07-20] MEDS: oxyCODONE 5 MG TAB PO (08:41)
[2019-07-20] MEDS: Ondansetron 4 MG/2 ML VIAL IVP ×2 (09:09→20:02)
[2019-07-20] MEDS: Normal Saline Flush 10 ML SYR IVP (12:24)
[2019-07-20 12:30] VITALS: BP 161/65; PULSE 54; RESP 18; TEMP 36.4; O2SAT 94
--- NOTE | 2019-07-20 16:11 | PTTR_ITS ---
Date of service: 07/20/19 Time of Service: 10:47 PT Notes Visit Reasons: PELVIC FRACTURE Inpatient Physical Therapy Treatment Note [facility] Date: July 20, 2019 PRECAUTIONS: Standard. Falls. WBAT R LE. SUBJECTIVE: Patient reported having a diarrhea episode with associated associated nausea early this morning. She states that she has not had a bowel movement since admission and has been on a laxative since then. She stated that she felt a lot better upon second attempt at treatment later in the morning today. She she complained only of minimal pain with level surface ambulation but reported considerable pain while doing the stairs. She stated that she may have an ECG testing this afternoon due to a bradycardic event this morning. OBJECTIVE: General Observation: IV in left upper extremity. Wound dressing to R gluteal area. Small circumscribed fading hematoma seen on proximal lateral R thigh. Mental Status: Alert and oriented x 4 Pain: 1-2/10 with level surface ambulation, 5/10 with stair negotiation BED MOBILITY/TRANSFERS Rolling L/R: Independent Supine-sit: Independent Sit-supine: Independent Sit-stand: Supervision using both BUE for support, needs front wheeled walker Stand-sit: Supervision using both BUE for support, needs front wheeled walker Bed to chair: Supervision using both BUE for support, needs front wheeled walker Chair to bed: Supervision using both BUE for support, needs front wheeled walker GAIT Assistive Device: FWW Weight bearing: WBAT R LE Assist: Supervision Distance: 170 feet x 2 Deviation: Reciprocal step through gait pattern. Marcella increasing. Step length and height on the left increasing with better pain control and increased stance time on the right LE. STAIRS: Patient tolerated up-and-down six 4 inch steps and four 6 inch steps requiring only standby assist while holding onto bilateral rails with step to gait pattern reporting 5/10 pain on the right pelvis. Patient continues to demonstrate decreased right knee flexion due to increase in pain. THEREX: Patient tolerated long arc quads x10 for 2 sets, seated hip flexion x10, and seated hip abduction x10. Patient demonstrates 100% mastery of and comp liance with room exercises provided consisting of gluteal sets held for 5 seconds each time x10 reps, quadriceps sets held for 5 seconds each x10 reps, and ankle dorsiflexion plantarflexion x20. ASSESSMENT: Patient continues to demonstrate improving pain tolerance that has allowed for increased activity/exercise tolerance as well as for increase independence with mobility ADL performance. Continued coordination with nurse is beneficial for pre-medication for pain. Patient converted to swing bed level 1 as of 07/19/2019 and hopes to stay for 1 week at most in order to progress to regain independent mobility ADL performance with front wheeled walker. PLAN: Continue current plan of care promoting functional transfers, activity tolerance, strength and stabilization to promote return to home once medically cleared. TREATMENT CODE/TIME: 9753 0 x 25 minutes, 9711 0 x 13 minutes, beginning at 10:47 AM.
[2019-07-20 16:14] VITALS: BP 165/85; PULSE 58; RESP 18; TEMP 36.5; O2SAT 93
[2019-07-20] MEDS: Albuterol HFA 8 GM 60 PUFF INH IH (16:37)
[2019-07-20 17:32] LABS: Troponin I < 0.05 ng/Ml (<0.06)
[2019-07-20] MEDS: Simvastatin 40 MG TAB PO (20:02)
[2019-07-20] MEDS: Enoxaparin 40 MG/0.4 ML SYR SC (20:02)
[2019-07-20] MEDS: Melatonin 3 MG TAB PO (21:02)
[2019-07-20 22:16] LABS: Troponin I < 0.05 ng/Ml (<0.06)
[2019-07-21 00:15] VITALS: BP 197/83; PULSE 58; RESP 16; TEMP 36.5; O2SAT 94
[2019-07-21] MEDS: Ketorolac 15 MG/ML VIAL IVP ×4 (00:24→18:13)
[2019-07-21] MEDS: Normal Saline Flush 10 ML SYR IVP ×4 (00:25→18:14)
[2019-07-21 07:22] VITALS: BP 159/80; PULSE 58; RESP 17; TEMP 36.8; O2SAT 95
[2019-07-21] MEDS: Budesonide/Formoterol 160/4.5 6 GM 60 PUFF INH IH ×2 (07:53→20:00)
[2019-07-21] MEDS: Ondansetron 4 MG/2 ML VIAL IVP ×2 (09:47→16:38)
[2019-07-21] MEDS: oxyCODONE 5 MG TAB PO ×2 (09:47→20:05)
[2019-07-21] MEDS: Metoprolol 25 MG TAB PO ×2 (09:48→20:00)
[2019-07-21] MEDS: Lisinopril 5 MG TAB PO (09:49)
[2019-07-21] MEDS: Acetaminophen 500 MG TAB 1000 MG PO ×3 (09:49→20:00)
[2019-07-21] MEDS: Esomeprazole 20 MG CAPCR PO ×2 (09:49→20:00)
[2019-07-21] MEDS: FLUoxetine 20 MG CAP PO (09:49)
[2019-07-21] MEDS: Gabapentin 100 MG CAP PO ×3 (09:50→20:00)
[2019-07-21] MEDS: Montelukast 10 MG TAB PO (09:50)
[2019-07-21] MEDS: predniSONE 20 MG TAB 40 MG PO (09:57)
--- NOTE | 2019-07-21 11:02 | PT.INTREAT ---
Date of service: 07/21/19 Time of Service: 08:40 PT Notes Visit Reasons: PELVIC FRACTURE Inpatient Physical Therapy Treatment Note [facility] Date: July 21, 2019 PRECAUTIONS: Standard. Falls. WBAT R LE. SUBJECTIVE: Patient notes that she continues to get stronger and feel more stable with use of the FWW. She is in hopes to go home beginning of the week. She is a little uneasy in regards to stairs however it is getting easier to perform. OBJECTIVE: General Observation: IV in left upper extremity. Wound dressing to R gluteal area. Small circumscribed fading hematoma seen on proximal lateral R thigh. Mental Status: Alert and oriented x 4 Pain: 1-2/10 with level surface ambulation, 7/10 with stair negotiation BED MOBILITY/TRANSFERS Rolling L/R: Independent Supine-sit: Independent Sit-supine: Independent Sit-stand: Supervision using both BUE for support, needs front wheeled walker Stand-sit: Supervision using both BUE for support, needs front wheeled walker Bed to chair: Supervision using both BUE for support, needs front wheeled walker Chair to bed: Supervision using both BUE for support, needs front wheeled walker GAIT Assistive Device: FWW Weight bearing: WBAT R LE Assist: Supervision Distance: 200 feet, 100 feet Deviation: Reciprocal step through gait pattern. Marcella increasing. Step length and height on the left increasing with better pain control and increased stance time on the right LE. STAIRS: Patient tolerated up-and-down six 4 inch steps and four 6 inch steps requiring only standby assist while holding onto bilateral rails with step to gait pattern reporting 7/10 pain on the right pelvis. Patient continues to demonstrate decreased right knee flexion due to increase in pain. THEREX: Patient tolerated long arc quads x20, seated hip flexion x10, and seated hip abduction x10. Patient demonstrates 100% mastery of and compliance with room exercises provided consisting of gluteal sets held for 5 seconds each time x10 reps, quadriceps sets held for 5 seconds each x10 reps, and ankle dorsiflexion plantarflexion x20. ASSESSMENT: Patient continues to demonstrate improved activity/exercise tolerance as well as for increase independence with mobility ADL performance. Continued coordination with nurse is beneficial for pre-medication for pain. Patient converted to swing bed level 1 as of 07/19/2019 and hopes to stay for 1 week at most in order to progress to regain independent mobility ADL performance with front wheeled walker. PLAN: Continue current plan of care promoting functional transfers, activity tolerance, strength and stabilization to promote return to home once medically cleared. TREATMENT CODE/TIME: [id number] 30 minutes beginning at 8:40 AM.
[2019-07-21] MEDS: Melatonin 3 MG TAB PO (20:00)
[2019-07-21] MEDS: Enoxaparin 40 MG/0.4 ML SYR SC (20:01)
[2019-07-21] MEDS: Simvastatin 40 MG TAB PO (20:01)
[2019-07-22] MEDS: Ketorolac 15 MG/ML VIAL IVP (05:36)
[2019-07-22] MEDS: Normal Saline Flush 10 ML SYR IVP ×2 (05:37→14:54)
[2019-07-22 07:17] VITALS: BP 179/72; PULSE 57; RESP 17; TEMP 37.2; O2SAT 96
[2019-07-22] MEDS: Budesonide/Formoterol 160/4.5 6 GM 60 PUFF INH IH ×2 (07:35→20:35)
[2019-07-22] MEDS: Acetaminophen 500 MG TAB 1000 MG PO ×3 (08:58→20:34)
[2019-07-22] MEDS: FLUoxetine 20 MG CAP PO (08:58)
[2019-07-22] MEDS: Metoprolol 25 MG TAB PO ×2 (08:59→20:34)
[2019-07-22] MEDS: Montelukast 10 MG TAB PO (08:59)
[2019-07-22] MEDS: Gabapentin 100 MG CAP PO ×3 (08:59→20:34)
[2019-07-22] MEDS: Lisinopril 5 MG TAB PO (08:59)
[2019-07-22] MEDS: Esomeprazole 20 MG CAPCR PO ×2 (08:59→20:34)
[2019-07-22] MEDS: oxyCODONE 5 MG TAB PO ×3 (09:48→23:14)
--- NOTE | 2019-07-22 10:44 | PTTR_ITS ---
Date of service: 07/22/19 Time of Service: 10:15 PT Notes Visit Reasons: PELVIC FRACTURE Inpatient Physical Therapy Treatment Note [facility] Date: July 22, 2019 PRECAUTIONS: Standard. Falls. WBAT R LE. SUBJECTIVE: Teri notes that she is feeling stronger. She feels that she can be up in her room safely with use of her walker without assistance. She would like to be able to go to the bathroom on her own. She notes that the pain remains a 7/10 with stair negotiation however at rest minimal. She slept well last night and is hopeful to go home soon. OBJECTIVE: General Observation: IV access. Mental Status: Alert and oriented x 4 Pain: 1-2/10 with level surface ambulation, 7/10 with stair negotiation BED MOBILITY/TRANSFERS Rolling L/R: Independent Supine-sit: Independent Sit-supine: Independent Sit-stand: Independent using both BUE for support, needs front wheeled walker Stand-sit: Independent using both BUE for support, needs front wheeled walker Bed to chair: Independent using both BUE for support, needs front wheeled walker Chair to bed: Independent using both BUE for support, needs front wheeled walker GAIT Assistive Device: FWW Weight bearing: WBAT R LE Assist: Supervision Distance: 200 feet Deviation: Reciprocal step through gait pattern. Marcella increasing. Step length and height on the left increasing with better pain control and increased stance time on the right LE. STAIRS: Patient tolerated up-and-down six 4 inch steps and four 6 inch steps requiring only standby assist while holding onto bilateral rails with step to gait pattern reporting 7/10 pain on the right pelvis. Patient continues to demonstrate decreased right knee flexion due to increase in pain. THEREX: Patient tolerated plantarflexion/dorsiflexion x20 reps bilaterally, glutes sets x10 reps with 5-second holds, long arc quads 20 reps bilaterally, seated hip flexion/abduction 10 reps bilaterally, shoulder flexion alternate raise 15 times each, scapular retraction 10 reps with 5-second hold bicep curl 2 0 reps bilaterally ASSESSMENT: Patient continues to demonstrate improved activity/exercise tolerance as well as for increase independence with mobility ADL performance. At this time feel she can be independent in room with use of front wheeled walker. Continued coordination with nurse is beneficial for pre-medication for pain. PLAN: Continue current plan of care promoting functional transfers, activity tolerance, strength and stabilization to promote return to home once medically cleared. TREATMENT CODE/TIME: [id number] 25 minutes beginning at 10:15 AM.
[2019-07-22] MEDS: amLODIPine 2.5 MG TAB PO (14:53)
[2019-07-22] MEDS: Ondansetron 4 MG/2 ML VIAL IVP (14:53)
[2019-07-22 16:48] VITALS: BP 208/93; PULSE 60; RESP 20; TEMP 36.9; O2SAT 96
[2019-07-22 16:55] VITALS: BP 190/92
--- NOTE | 2019-07-22 16:56 | NUR.NOTE ---
Nursing Note: Patient c/o abdominal pain, and stated she has loose stools times two. Pain is generalized throughout the abdomen. Vs taken and entered in vs intervention BP rechecked manually at 190 /92. charge nurse has advised provider. awaiting orders. Patient is in bed with knees flexed towards abdomen.
[2019-07-22] MEDS: Mylanta Suspension 30 ML CUP PO (17:17)
--- NOTE | 2019-07-22 18:07 | NUR.NOTE ---
Nursing Note: provider orders Mylanta, and a prn oxycodone for patients gi upset. She is sleeping when patient is reassesed
[2019-07-22 19:45] VITALS: BP 138/83; PULSE 61
[2019-07-22] MEDS: Simvastatin 40 MG TAB PO (20:34)
[2019-07-22] MEDS: Enoxaparin 40 MG/0.4 ML SYR SC (20:35)
[2019-07-22] MEDS: Melatonin 3 MG TAB PO (23:14)
[2019-07-23] MEDS: oxyCODONE 5 MG TAB PO ×2 (05:15→12:01)
[2019-07-23 06:26] LABS: HCT 38.5 % (36.0-46.0); HGB 12.9 g/dL (12.0-15.5); Mean Corp. HGB Concentration 33.5 g/dL (32.0-36.0); Mean Corpuscular Hemoglobin 30.3 pg (27.0-33.0); Mean Corpuscular Volume 90.4 fL (80-95); Mean Platelet Volume 10.2 fL (8.0-11.0); Platelet Count 226 x1000/uL (130-400); RBC 4.26 m/cumm (4.00-5.20); RBC Distribution Width 12.8 % (11.7-14.6); White Blood Cell Count 6.39 k/cumm (4.4-10.8)
[2019-07-23 07:11] VITALS: BP 124/71; PULSE 54; RESP 17; TEMP 36.7; O2SAT 96
[2019-07-23] MEDS: Budesonide/Formoterol 160/4.5 6 GM 60 PUFF INH IH (08:04)
[2019-07-23] MEDS: FLUoxetine 20 MG CAP PO (08:06)
[2019-07-23] MEDS: Lisinopril 5 MG TAB PO (08:07)
[2019-07-23] MEDS: Docusate Sodium 100 MG CAP PO (08:07)
[2019-07-23] MEDS: Gabapentin 100 MG CAP PO ×2 (08:07→13:32)
[2019-07-23] MEDS: Acetaminophen 500 MG TAB 1000 MG PO ×2 (08:07→13:32)
[2019-07-23] MEDS: Metoprolol 25 MG TAB PO ×2 (08:07→08:52)
[2019-07-23] MEDS: Esomeprazole 20 MG CAPCR PO (08:08)
[2019-07-23] MEDS: amLODIPine 2.5 MG TAB PO (08:08)
[2019-07-23] MEDS: Montelukast 10 MG TAB PO (08:08)
--- NOTE | 2019-07-23 10:05 | PT.INDS ---
Date of service: 07/23/19 Time of Service: 10:05 PT Notes Visit Reasons: PELVIC FRACTURE Inpatient Physical Therapy Discharge Summary Dates: 07/23/2019 Dates of Service: 07/19/2019 through 07/23/2019 Referring Doctor: Shayla Rowley NP PT Orders: PT CONSULT: Limited ability Precautions: Standard. WBAT on BLE. Patient Profile/Admitting Diagnosis: Teri is 78 year old female admitted s/p fall resulting in fracture of the pubic bone of the right inferior/superior rami with mild displacement. 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 Asthma (Chronic) Gastroparesis (Chronic) GERD (gastroesophageal reflux disease) (Chronic) H/O: pneumonia (Inactive) Headache (Inactive) HTN (hypertension) (Chronic) Hypercholesterolemia (Chronic) Osteoarthritis (Chronic) Peptic ulcer (Inactive) Unilateral inguinal hernia (Inactive) Surgical History Arthroscopy, Shoulder LEFT Biopsy of breast (~2005) LEFT Cholecystectomy Extraction of cataract 06/11/13; RIGHT 06/26/13; LEFT FX ARM (02/15/14) PLATE AND SCREWS History of cataract removal with insertion of prosthetic lens (Inactive) Hysterectomy, Laproscopic 1 ovary remains Status post arthroscopy of shoulder (Inactive) Status post breast biopsy (Inactive) Status post cholecystectomy (Inactive) Status post laparoscopic hysterectomy (Inactive) Social History/Home Situation: She reports currently her son and daughter in law are staying with her. She notes complete independence prior to her fall at baseline. She reports of 4 steps to enter home. Once inside 1 level living. Does have a walk-in shower. Also has providers at the bathroom. Current Functional Limitations: Inability to sit, stand, or walk due to severe pain in her right pelvis Equipment Owned/DME: Walker, cane, shower seat, grab bars Subjective: Patient looks forward to going home today after reinforcement from PT that she has done so well and would manage safely at home as long as pain level is well controlled. Objective: General Observation: IV left upper extremity Mental Status: Alert and oriented x4 Pain: 3?4/10 on the right hip area ROM: Right Upper Extremity: Shoulder Flexion WFL. Shoulder abduction WFL. Elbow flexion WFL. Wrist flexion WFL. Functional opening and closing of hand WFL. Left Upper Extremity: Shoulder Flexion WFL. Shoulder abduction WFL. Elbow flexion WFL. Wrist flexion WFL. Functional opening and closing of hand WFL. Right Lower Extremity: Hip flexion WFL. Hip abduction WFL. Knee flexion WFL. Ankle dorsiflexion WFL. Ankle plantarflexion WFL. Left Lower Extremity: Hip flexion WFL. Hip abduction WFL. Knee flexion WFL. Ankle dorsiflexion WFL. Ankle plantarflexion WFL. Strength: Right Upper Extremity: Shoulder flexors 5/5. Shoulder abductors 5/5. Elbow flexors 5/5. Elbow extensors 5/5. Senior Strategy Manager strong. Left Upper Extremity: Shoulder flexors 5/5. Shoulder abductors 5/5. Elbow flexors 5/5. Elbow extensors 5/5. Senior Strategy Manager strong. Right Lower Extremity: Hip flexors 4/5. Hip abductors 4/5. Knee flexors 5/5. Knee extensors 4/5. Ankle dorsiflexors 5/5. Ankle plantarflexors 5/5. Left Lower Extremity:Hip flexors 4/5. Hip abductors 4/5. Knee flexors 5/5. Knee extensors 4/5. Ankle dorsiflexors 5/5. Ankle plantarflexors 5/5. Sensation: Intact as to pain and pressure on bilateral lower extremities Bed Mobility/Transfers: Sit to stand independent using both hands for support, requires front wheeled walker for safety and pain relief Stand to sit independent using both hands for support, requires front wheeled walker for safety and pain relief Bed to chair independent using both hands for support, requires front wheeled walker for safety and pain relief Chair to bed independent using both hands for support, requires front wheeled walker for safety and pain relief Gait: Patient tolerated level surface ambulation of 260 feet +120 feet with step to gait pattern using front wheeled walker with weight bearing as tolerated on the right LE requiring only supervision assist but with pain complaint of 3?4/10 on the pelvic area. Patient was also able to tolerate up-and-down six 4-inch steps and four 6 -nch steps while holding onto bilateral rails using step over step pattern with pain complaint of 5/10 requiring supervision assist of PT. Balance: Static Sitting: Normal Dynamic Sitting: Normal Static Standing: Good Dynamic Standing: Fair Assessment: Patient is a 78 year old female referred to physical therapy services with the diagnosis of status post pelvic fracture, s/p fall. Patient demonstrated significant functional gains during this episode of care and is discharged to home at walker level modified independent. Patient presented with clinical signs and symptoms consistent with current/admitting diagnoses that have resulted to mobility limitations, gait instability, generalized weakness, and impairment of motor control as demonstrated by the following impairment level findings: 1. Decreased strength to R LE major muscle groups 2. Impaired sitting/standing balance 3. Impaired activity tolerance 4. Limited ROM of Right hip Impairments contributed to the following functional limitations: 1. Dependent bed mobility skills 2. Increased dependence with transfers 3. Inability to safely ambulate without assistive device and physical assistance 4. Increase completion time for mobility ADL performance 5. Increased fall risk 6. Inability to negotiate steps alone safely Goals: Goals X1 week 1. Supine-Sit independent MET 2. Sit-Supine independent MET 3. Sit-Stand supervision MET 4. Stand-Sit supervision MET 5. Bed-Chair supervision with FWW MET 6. Chair-Bed supervision with FWW MET 7. Independent gait on level surface with use of least restrictive device for at least 200 feet without report of pain nor dyspnea NOT MET 8. Independent stair negotiation while holding onto bilateral rails for at least 3 steps without report of pain nor dyspnea NOT MET 9. Independent with home exercise program MET 10. Good static and dynamic standing balance/tolerance NOT MET DISCHARGE RECOMMENDATIONS: Home when medically cleared. No equipment needs at this time. TREATMENT CODE/TIME: 57321 x 41 minutes beginning at 10:05 AM. Thank you very much for this referral. Zaria Lee PT, DPT, CLT [facility] at [place], [place]
--- NOTE | 2019-07-23 12:17 | W.PM.DS.N ---
Date of service: 07/23/19 Time of Service: 12:17 DS: Diagnosis Discharge Diagnosis (1) Pelvic fracture: Start date: 07/23/19 Start time: 12:17 Status: Acute Asessment and Plan: Discharged from PT today. Doing well. Independent with ambulation and ADL. Will continue current pain regimen, follow up with PCP in 1 week. (2) Asthma exacerbation: Start date: 07/23/19 Start time: 12:19 Status: Resolved Asessment and Plan: Finished steroid burst. LSC, continue home regimen (3) HTN (hypertension): Start date: 07/23/19 Start time: 12:20 Status: Chronic Asessment and Plan: Elevated while inpatient to the point of 190's systolic, could be in setting of pain. Increased lisinopril to 10 mg and added low dose amlodipine 2.5 mg. Variable however improved with increase and added medication. Follow up with PCP to monitor BP and adjust medications as needed. Above case discussed with Dr. Calvo who is in agreement. 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 She reports that there was no preceding symptoms, no lightheadedness/palpitations/pain, and states that fall was mechanical. She was unable to bear weight on her right lower extremity. Work-up in the emergency department was consistent with a pelvic fracture. She was admitted to the medical surgical unit for further management. Her pain was hard to manage at first but she was slowly re-ambulated and was discharged from Physical therapy due to ability to self ambulate and perform ADL. Chest x-ray was negative for any evidence of pneumonia or infection. However she did have an episode of CP with negative troponins and EKG without ischemia. She was started on oral steroid burst and finished course, LSC at this time, she did not require oxygen at any time. She was ruled out for COVID-19 on admission per [facility] Hospital screening protocol. BP was elevated during admission several times upward to 190's systolically, lisinopril was increased and amlodipine 2.5 mg added. BP did become normal after a couple of days. Will continue medications with follow up by PCP in 1 week, to revaluate BP and medication adjustments. Will continue current pain regimen at home. She denies CP, SOB, N/V/D. Home Meds and New Rx's Prescriptions: New amlodipine 2.5 mg Tablet 2.5 mg PO DAILY Qty: 14 RF: 0 docusate sodium [Colace] 100 mg Capsule 100 mg PO BID Qty: 20 RF: 0 lisinopril 5 mg Tablet 5 mg PO DAILY Qty: 14 RF: 0 gabapentin 100 mg Capsule 100 mg PO TID Qty: 60 RF: 0 oxycodone 5 mg Tablet 5 mg PO Q6H PRN PRNQty: 20 RF: 0 Continued fluoxetine [Prozac] 20 mg capsule 20 mg PO DAILY Qty: 90 RF: 4 esomeprazole magnesium [Nexium] 40 MG capsule,delayed release(DR/EC) 20 mg PO BID Qty: 180 RF: 3 albuterol sulfate [ProAir HFA] 8.5 GM HFA aerosol inhaler 2 puff Inhalation QID PRNQty: 3 RF: 4 cholecalciferol (vitamin D3) 2,000 UNIT tablet 2,000 unit PO DAILY RF: 0 montelukast [Singulair] 10 mg tablet 10 mg PO DAILY Qty: 90 RF: 4 simvastatin [Zocor] 40 mg tablet 40 mg PO DAILY Qty: 90 RF: 4 metoprolol tartrate 25 mg tablet 25 mg PO BID Qty: 180 RF: 3 fluticasone propionate [Flonase] 16 GM spray,suspension 2 spry NS DAILY PRNRF: 0 fluticasone propion-salmeterol [Advair Diskus] 250-50 mcg/dose Blister With Device 1 puff Inhalation PRN PRNRF: 0 meclizine 25 mg tablet 25 mg PO TID PRN (Reason: dizziness) Qty: 10 RF: 0 Discharge Instructions Instructions: Pelvic Fracture (DC), Pain Management (DC), DASH Eating Plan (DC), Hypertension (DC), Opioid Safety (DC), Non-pharmacological Pain Management Therapies for Adults (GEN) Additional Instructions: Follow up with PCP in 1 week Take blood pressure medication and follow up with PCP for evaluation and adjustment. Take pain medication as needed and as prescribed. You can take tylenol for pain first then oxycodone if pain not controlled. Continue to walk Stand Alone Forms: Nursing Discharge Form Referrals: Kingsley Werner MD [Primary Care Provider] - 07/31/19 10:00 am Activity:: Activity as Tolerated Equipment/Supplies:: No Equipment Needed Diet:: As Tolerated Discharge Orders Discharge Orders: Discharge Order (Routine); Ordered 07/23/19 Ordered By: Yessenia Rosario DS: Summary Status at Discharge Functional status at discharge: uses cane/walker Overall status at discharge: patient is progressing back to baseline Mental Status: mental status grossly normal Speech and Movement: speech and movement normal Mood: congruent mood Affect: normal affect Exam Const General: cooperative, healthy appearing, comfortable, no acute distress and well developed Nutritional Appearance: average body habitus Orientation: alert, awake and oriented x3 HENMT Head: normal to inspection, normocephalic and atraumatic Mouth: oral mucosae normal Resp Effort & Inspection: normal respiratory effort Auscultation: clear to auscultation bilaterally, no rales, no rhonchi and no wheezes Cardio Jugular venous pressure: no JVD Rate: regular rate Rhythm: regular rhythm Heart Sounds: S1 normal and S2 normal GI Inspection: normal to inspection Palpation: soft Auscultation: normal bowel sounds Skin General skin exam: no rashes or lesions noted Neuro General: patient alert, patient awake and patient oriented x3 Cognition: normal cognition Speech: speech normal Gait: gait assisted Method: walker Extrem General: normal to inspection Psych Appearance: grossly normal Mental Status: mental status grossly normal Speech and Movement: speech and movement normal Mood: congruent mood Affect: normal affect DS: Data Vitals/I&O Vitals and I&O: Vital Signs Temperature 36.7 C 07/23/19 07:11 Temperature Source Temporal Artery Scan 07/23/19 07:11 Pulse 54 L 07/23/19 07:11 Pulse Rhythm Regular 07/23/19 08:28 Respiratory Rate 17 07/23/19 07:11 Respiratory Effort Non-Labored 07/23/19 08:28 Respiratory Depth Normal 07/23/19 08:28 Respiratory Pattern Normal 07/23/19 08:28 Blood Pressure 124/71 07/23/19 07:11 Pulse Oximetry 96 07/23/19 07:11 Oxygen Delivery Method Room Air 07/23/19 07:11 Oxygen Flow Rate 0 07/23/19 07:11 Pain Level 6 07/23/19 12:01 Comment 07/22/19 16:48 Intake & Output 07/22/19 07/23/19 07/23/19 23:59 11:59 23:59 Intake Total 490 / 490 450 / 450 Output Total 500 / 500 Balance 490 / -310 -50 / -50 Intake: Oral 490 / 490 450 / 450 Output: Urine 500 / 500 Other: Urine Color Yellow Urine Appearance Clear Clear Urine Odor Normal Stool Size Large Stool Characteristics Soft Formed Voiding Methods Toilet Toilet Data Completed and Pending Completed studies during hospitalization [Text1]: CT Private^ROUTINE ABDOMEN PELVIS WITH CONTRAST (Adult) 12/14/2017 7:39 AM FINDINGS: Bones/joints: There is a somewhat comminuted fracture of the superior and inferior pubic ramus on the right side. A fracture of the right side of the sacrum is suspected as well. Soft tissues: Unremarkable. Vasculature: There are multiple phleboliths within the pelvis. IMPRESSION: Pelvic fracture as described above. CLINICAL HISTORY: trauma, right lateral hip pain TECHNIQUE: COMPARISON: No exams were available for comparison FINDINGS: Single lateral view of the hip was obtained and shows no evidence of fracture. IMPRESSION: TECHNIQUE: Imaging protocol: XR Right hip with pelvis when performed. Views: 1 view. COMPARISON: CR XR PELVIS AP 07/16/2019 4:27 PM FINDINGS: Bones/joints: Limited one view of the right hip demonstrates no evidence of a fracture or a dislocation. Soft tissues: Unremarkable. IMPRESSION: Limited study as above. COMPARISON: CR,XR XR CHEST 2V PA LATERAL from 03/30/2019 FINDINGS: Heart is not enlarged. Lungs clear except for mild changes scarring as noted on prior studies. No gross pleural effusion on this frontal film. IMPRESSION: No evidence of acute process. Labs on day of discharge: Labs from last 24 hours 07/23/19 06:00 WBC 6.39 RBC 4.26 Hgb 12.9 Hct 38.5 MCV 90.4 MCH 30.3 MCHC 33.5 RDW 12.8 Plt Count 226 MPV 10.2 PFS Medical History Acute bacterial bronchitis (Inactive) Arthritis of left knee (Resolved) s/p total knee Asthma (Chronic) Gastroparesis (Chronic) GERD (gastroesophageal reflux disease) (Chronic) H/O: pneumonia (Inactive) Headache (Inactive) HTN (hypertension) (Chronic) Hypercholesterolemia (Chronic) Osteoarthritis (Chronic) Peptic ulcer (Inactive) Unilateral inguinal hernia (Inactive) Surgical History Arthroscopy, Shoulder LEFT Biopsy of breast (~2005) LEFT Cholecystectomy Extraction of cataract 06/11/13; RIGHT 06/26/13; LEFT FX ARM (02/15/14) PLATE AND SCREWS History of cataract removal with insertion of prosthetic lens (Inactive) Hysterectomy, Laproscopic 1 ovary remains Status post arthroscopy of shoulder (Inactive) Status post breast biopsy (Inactive) Status post cholecystectomy (Inactive) Status post laparoscopic hysterectomy (Inactive) Family History Mother Diabetes Essential hypertension Depression Heart disease Hyperlipidemia Father , WW II at age 24. No problems noted. Brother Diabetes Essential hypertension Hyperlipidemia Neoplasm MELANOMA Grandfather Diabetes Essential hypertension Grandfather Essential hypertension Heart disease Hyperlipidemia Grandmother Essential hypertension Neoplasm Stroke Grandmother Diabetes Blood disease Neoplasm COLON FAMILY HISTORY Myocardial infarction Son Substance abuse Depression Hyperlipidemia Daughter Diabetes Depression Hyperlipidemia Asthma Social History Smoking/Tobacco Use Status: Never Alcohol Intake: current Alcohol Intake frequency: holidays/special occasions only Alcohol type: hard liquor Drug use: Never Substance use type: does not use Do you feel safe at home: Yes Do you feel safe in your relationship?: Yes
--- NOTE | 2019-07-23 14:29 | PDOC.CMDIS ---
- If Service Date Differs Date of service: 07/23/19 Time of Service: 14:29 LACE Index Scoring Tool - Questions: Length of Stay (in days): 7 - 13 Acuity (Admit via E.D.?): Yes E.D. Visits: 2 - Answers: Total Score: 10 Risk of Readmission: High Risk Care Management Discharge Reason for Hospitalization: Pelvic fracture Discharge Plan: Gela will be discharged home with no new services. She will follow up with her PCP and discharge plan of care and transport via private vehicle with her son. Patient/Family Education Needs: Discharge plan, limitations, follow up plan, Ask Me Three.
== END 2019-07-23 14:20 | disposition home or self-care (01) | DRG 560 ==
PROVIDERS: Nurse Practitioner Acute Care; Admitting Provider Internal Medicine; PCP Family Medicine; Visit Provider Family Medicine
DX: S32.591D Other specified fracture of right pubis, subsequent encounter for fracture with routine healing (principal); J45.901 Unspecified asthma with (acute) exacerbation; G89.11 Acute pain due to trauma; W07.XXXD Fall from chair, subsequent encounter; I10 Essential (primary) hypertension; K21.9 Gastro-esophageal reflux disease without esophagitis; F32.9 Major depressive disorder, single episode, unspecified; E78.5 Hyperlipidemia, unspecified; R07.89 Other chest pain
CPT/HCPCS: 36415; 80048; 85027; 94640; 97110; 97530; 99217; 99305; 99315; J1650; 84484; 93005; 93010; J1885; J2405; J3010; J7512

== ENCOUNTER 2019-08-31 11:56 | Emergency (ER) | payer MEDICARE, SELFPAY ==
[2019-08-31 12:04] VITALS: BP 111/71; PULSE 81; RESP 18; TEMP 36.5; O2SAT 97
--- NOTE | 2019-08-31 12:13 | ED.GENADUL_ITS ---
Discharge Plan Disposition Patient Disposition: HOME Condition: Good Discharge Details Chief Complaint: Urinary Clinical Impression: Acute UTI Primary Care Provider: Kingsley Werner ED Provider: Hermelindo Moreno Home Meds and New Rx's Prescriptions: New cephalexin [Keflex] 500 mg capsule 500 mg PO QID 7 Days Qty: 28 RF: 0 Continued fluoxetine [Prozac] 20 mg capsule 20 mg PO DAILY Qty: 90 RF: 4 amlodipine 2.5 mg tablet 2.5 mg PO DAILY Qty: 90 RF: 4 esomeprazole magnesium [Nexium] 40 mg capsule,delayed release(DR/EC) 20 mg PO BID Qty: 180 RF: 4 albuterol sulfate [ProAir HFA] 8.5 GM HFA aerosol inhaler 2 puff Inhalation QID PRNQty: 3 RF: 4 cholecalciferol (vitamin D3) 2,000 UNIT tablet 2,000 unit PO DAILY RF: 0 metoprolol tartrate 25 mg tablet 25 mg PO BID Qty: 180 RF: 3 simvastatin [Zocor] 40 mg tablet 40 mg PO DAILY Qty: 90 RF: 4 lisinopril 5 mg tablet 5 mg PO DAILY Qty: 90 RF: 4 montelukast [Singulair] 10 mg tablet 10 mg PO DAILY Qty: 90 RF: 4 fluticasone propionate [Flonase] 16 GM spray,suspension 2 spry NS DAILY PRNRF: 0 fluticasone propion-salmeterol [Advair Diskus] 250-50 mcg/dose Blister With Device 1 puff Inhalation PRN PRNRF: 0 meclizine 25 mg tablet 25 mg PO TID PRN (Reason: dizziness) Qty: 10 RF: 0 Discharge Instructions Instructions: Urinary Tract Infection in Women (ED) Additional Instructions: You have a urinary tract infection, please take the Keflex as directed. Please take cranberry supplement. Drink plenty fluids. If you notice any worsening of your symptoms, or any new symptoms such as vomiting, diarrhea, fever, chills, shortness of breath, chest pain, numbness, weakness, or fainting , please return immediately to the emergency department for reevaluation. Please follow up with your primary care provider as soon as possible for reassessment and reevaluation. As always, it was a pleasure participating in your medical care today. Referrals: Kingsley Werner MD [Primary Care Provider] - Medical Decision Making 78-year-old female presents today for burning and urinary frequency. Patient states this is been occurring for the last 3 to 4 days. Mild pulling sensation whenever she urinates. No flank pain CVA tenderness, fever or chills. She states that this feels identical to previous urinary tract infections that she is had. She denies any other complaints at this time. No history of kidney stones. She does have a history of a hysterectomy. Physical exam and clinical history showed no evidence of pyelonephritis. No flank or CVA tenderness. Patient appears notably hemodynamically stable. Will get urinalysis to evaluate for UTI. No current evidence of surgical abdomen, no indication for imaging at this time. No history of kidney stones. 1 PM Urinalysis shows notable evidence of urinary tract infection, symptoms inconsistent with pyelonephritis. Patient will be discharged home with Keflex 500 mg 4 times daily secondary to her age and risk factors. I have extensively reviewed the treatment plan and discharge instructions with the patient. I have addressed all patient concerns at this time. The patient was made aware of what symptoms to monitor for that would warrant a return to the emergency department. Discussed the plan with the patient, they demonstrate verbal understanding and agreement with our assessment and plan at this time. HPI General Date/Time Provider Initiated Documentation: 08/31/19 11:59 . HPI Narrative: 78-year-old female presents today for burning and urinary frequency. Patient states this is been occurring for the last 3 to 4 days. Mild pulling sensation whenever she urinates. No flank pain CVA tenderness, fever or chills. She states that this feels identical to previous urinary tract infections that she is had. She denies any other complaints at this time. No history of kidney stones. She does have a history of a hysterectomy. Related Data Home Medications Medication Instructions Recorded Confirmed fluticasone propionate [Flonase] 2 spry NS DAILY PRN 06/07/13 08/31/19 albuterol sulfate [ProAir HFA] 2 puff INHALATION QID PRN #3 ea 03/21/17 08/31/19 cholecalciferol (vitamin D3) 2,000 unit PO DAILY 07/18/17 08/31/19 fluticasone propion-salmeterol 1 puff INHALATION PRN PRN 12/09/17 08/31/19 [Advair Diskus] metoprolol tartrate 25 mg tablet 25 mg PO BID #180 tab 10/18/18 08/31/19 fluoxetine 20 mg capsule 20 mg PO DAILY #90 cap 02/09/19 08/31/19 meclizine 25 mg PO TID PRN #10 tab 03/30/19 08/31/19 amlodipine 2.5 mg tablet 2.5 mg PO DAILY #90 tab 07/31/19 08/31/19 esomeprazole magnesium 40 mg 20 mg PO BID #180 tab-cap 07/31/19 08/31/19 capsule,delayed release simvastatin 40 mg tablet 40 mg PO DAILY #90 tab-cap 07/31/19 08/31/19 lisinopril 5 mg tablet 5 mg PO DAILY #90 tab 08/01/19 08/31/19 montelukast 10 mg tablet 10 mg PO DAILY #90 tab 08/01/19 08/31/19 cephalexin [Keflex] 500 mg PO QID 7 Days #28 cap 08/31/19 Previous Rx's Medication Instructions Recorded metoprolol tartrate 25 mg tablet 25 mg PO BID #180 tab 10/18/18 fluoxetine 20 mg capsule 20 mg PO DAILY #90 cap 02/09/19 meclizine 25 mg PO TID PRN #10 tab 03/30/19 amlodipine 2.5 mg tablet 2.5 mg PO DAILY #90 tab 07/31/19 esomeprazole magnesium 40 mg 20 mg PO BID #180 tab-cap 07/31/19 capsule,delayed release simvastatin 40 mg tablet 40 mg PO DAILY #90 tab-cap 07/31/19 lisinopril 5 mg tablet 5 mg PO DAILY #90 tab 08/01/19 montelukast 10 mg tablet 10 mg PO DAILY #90 tab 08/01/19 cephalexin [Keflex] 500 mg PO QID 7 Days #28 cap 08/31/19 Allergies Allergy/AdvReac Type Severity Reaction Status Date / Time adhesive Allergy Severe SKIN RASH Verified 08/31/19 12:58 Sulfa (Sulfonamide Allergy Intermediate ITCHING Verified 08/31/19 12:58 Antibiotics) losartan Allergy Unknown SWELLING, Verified 08/31/19 12:58 ITCHING hydrocodone AdvReac Itching Verified 08/31/19 12:58 with high doses General Stated Complaint: Urinary CLAUDIA: 3 Review of Systems All systems reviewed & are unremarkable except as noted in HPI and below PFSH Medical History Acute bacterial bronchitis (Inactive) Arthritis of left knee (Resolved) s/p total knee Asthma (Chronic) Gastroparesis (Chronic) GERD (gastroesophageal reflux disease) (Chronic) H/O: pneumonia (Inactive) Headache (Inactive) Hypercholesterolemia (Chronic) Osteoarthritis (Chronic) Peptic ulcer (Inactive) Unilateral inguinal hernia (Inactive) Surgical History Arthroscopy, Shoulder LEFT Biopsy of breast (~2005) LEFT Cholecystectomy Extraction of cataract 06/11/13; RIGHT 06/26/13; LEFT FX ARM (02/15/14) PLATE AND SCREWS History of cataract removal with insertion of prosthetic lens (Inactive) Hysterectomy, Laproscopic 1 ovary remains Status post arthroscopy of shoulder (Inactive) Status post breast biopsy (Inactive) Status post cholecystectomy (Inactive) Status post laparoscopic hysterectomy (Inactive) Family History Mother Diabetes Essential hypertension Depression Heart disease Hyperlipidemia Father , WW II at age 24. No problems noted. Brother Diabetes Essential hypertension Hyperlipidemia Neoplasm MELANOMA Grandfather Diabetes Essential hypertension Grandfather Essential hypertension Heart disease Hyperlipidemia Grandmother Essential hypertension Neoplasm Stroke Grandmother Diabetes Blood disease Neoplasm COLON FAMILY HISTORY Myocardial infarction Son Substance abuse Depression Hyperlipidemia Daughter Diabetes Depression Hyperlipidemia Asthma Social History Smoking/Tobacco Use Status: Never Alcohol Intake: current Alcohol Intake frequency: holidays/special occasions only Alcohol type: hard liquor Drug use: Never Substance use type: does not use Do you feel safe at home: Yes Do you feel safe in your relationship?: Yes Exam Narrative Exam Narrative: 1.Const: Well-nourished, Well-developed, appearing stated age 2.Eyes: PERRL, no conjunctival injection, and symmetrical lids. 3.ENT: Atraumatic external nose and ears. Moist MM. Neck: Symmetric, trachea midline, No thyromegaly. 4.CVS: +S1/S2, No murmurs or gallops. Peripheral pulses 2+ and equal in all extremities. Brisk capillary refill in all extremities. 5.RESP: Unlabored respiratory effort. Clear to auscultation bilaterally. No wheezes rales or rhonchi 6.GI: Soft, Nontender/Nondistended, No hepatosplenomegaly. No guarding or rebound. No flank or CVA tenderness. No suprapubic tenderness. 7.MSK: Normocephalic/Atraumatic, Extremities w/o deformity or ttp No cyanosis or clubbing, Normal movement of all extremities 8.Skin: Warm, Dry. No rashes or lesions. 9.Neuro: applications support lead II-XII grossly intact. Sensation grossly intact, no focal neurologic deficits. 10.Psych: (AAO) x3. Appropriate mood and affect Course Vital Signs Vital signs: Respiratory Effort Non-Labored 08/31/19 12:08
[2019-08-31 12:54] LABS: Bilirubin Small (Negative); Blood Large (Negative); Clarity Cloudy (Clear); Glucose Negative (Negative); Ketones Trace mg/dL (Negative); Leukocyte Esterase Large (Negative); Nitrite Positive (Negative); Specific Gravity >= 1.030 (1.005-1.025); Urobilinogen 0.2 EU/dL (Up TO 0.2)
[2019-08-31 13:03] LABS: Bacteria Many HPF (Negative); C & S Indicated? Yes; WBC >50 HPF (0-5)
[2019-08-31 13:20] VITALS: BP 155/79; PULSE 71; RESP 16; O2SAT 96
== END 2019-08-31 13:27 | disposition home or self-care (01) ==
PROVIDERS: Emergency Provider Student in an Organized Health Care Education/Training Program; PCP Family Medicine
DX: N39.0 Urinary tract infection, site not specified (principal); B96.20 Unspecified Escherichia coli [E. coli] as the cause of diseases classified elsewhere; Z87.440 Personal history of urinary (tract) infections
CPT/HCPCS: 87077; 99283; 81003; 81015; 87086; 87186

== ENCOUNTER 2019-09-30 11:59 | Emergency (ER) | payer MEDICARE, SELFPAY ==
[2019-09-30 12:04] VITALS: BP 138/93; PULSE 77; RESP 14; TEMP 36.4; O2SAT 94
--- NOTE | 2019-09-30 12:15 | W.ED.GENAD ---
Discharge Plan Disposition Patient Disposition: HOME Condition: Stable Discharge Details Chief Complaint: Nk/Back Pain Clinical Impression: Acute left-sided back pain with sciatica, Compression fracture of L3 vertebra Primary Care Provider: Kingsley Werner ED Provider: Yvonne Berrios Home Meds and New Rx's Prescriptions: New prednisone 20 mg tablet 40 mg PO DAILY 7 Days Qty: 14 RF: 0 cyclobenzaprine 10 mg tablet 10 mg PO TID PRN (Reason: muscle spasm) Qty: 14 RF: 0 Continued fluoxetine [Prozac] 20 mg capsule 20 mg PO DAILY Qty: 90 RF: 4 amlodipine 2.5 mg tablet 2.5 mg PO DAILY Qty: 90 RF: 4 esomeprazole magnesium [Nexium] 40 mg capsule,delayed release(DR/EC) 20 mg PO BID Qty: 180 RF: 4 albuterol sulfate [ProAir HFA] 8.5 GM HFA aerosol inhaler 2 puff Inhalation QID PRNQty: 3 RF: 4 cholecalciferol (vitamin D3) 2,000 UNIT tablet 2,000 unit PO DAILY RF: 0 metoprolol tartrate 25 mg tablet 25 mg PO BID Qty: 180 RF: 3 simvastatin [Zocor] 40 mg tablet 40 mg PO DAILY Qty: 90 RF: 4 lisinopril 5 mg tablet 5 mg PO DAILY Qty: 90 RF: 4 montelukast [Singulair] 10 mg tablet 10 mg PO DAILY Qty: 90 RF: 4 fluticasone propionate [Flonase] 16 GM spray,suspension 2 spry NS DAILY PRNRF: 0 fluticasone propion-salmeterol [Advair Diskus] 250-50 mcg/dose Blister With Device 1 puff Inhalation PRN PRNRF: 0 meclizine 25 mg tablet 25 mg PO TID PRN (Reason: dizziness) Qty: 10 RF: 0 Discharge Instructions Instructions: Vertebral Compression Fracture (ED), Sciatica (ED), Back Pain (ED) Additional Instructions: Please keep your appointment as previously scheduled with orthopedics. Take medications as prescribed. Return to the ED immediately for any worsening pain not relieved by medications, loss of bowel or bladder control, numbness or tingling around your groin or rectal area, inability to urinate or have a bowel movement. Or any concerns. Follow up with primary care provider in 3-5 days. Return to ED sooner if any worsening or concerns. Increase oral fluids. Please take Tylenol or Ibuprofen with food every 4-6 hours as needed for pain and swelling. Referrals: Kingsley Werner MD [Primary Care Provider] - Medical Decision Making 78-year-old female presents the ER with left paraspinous back pain which radiates into her buttock and left thigh. She reports pain radiation down to her left knee. She denies any recent injuries. She did break her pelvis approximately 11 weeks ago and does have a history of spinal stenosis which she gets steroid injections for. She denies any saddle anesthesia, loss of bowel or bladder control, constipation or urinary retention. She denies any weakness, numbness or tingling in her bilateral lower extremities. No history of back surgeries. She is alert and oriented x4 upon arrival. She does rate her pain a 8 out of 10 on a scale. Pain is rated is constant sharp shooting pains. Lying down makes pain better. Pain gets worse with walking and movement. TECHNIQUE: Imaging protocol: XR of the lumbosacral spine, 4 or 5 views. COMPARISON: [facility] lumbar sp 2V 09/28/2018 8:30 AM FINDINGS: Vertebrae: 9 mm anterolisthesis at L4-L5 with mild disc space narrowing. Moderate disc space narrowing at L5-S1. Facet arthropathy in the lower lumbar spine. No acute fracture. Remote compression fracture superior endplate L3. Soft tissues: Unremarkable. IMPRESSION: 1. No acute fracture. Remote compression fracture superior endplate L3. 2. Degenerative changes lower lumbar spine as detailed above. Thank you for allowing us to participate in the care of your patient. Dictated and Authenticated by: Tootie Botello MD X-rays do show a L3 compression fracture which is read as not acute, this is consistent with patient's history of fall 11 weeks ago. Discussed results with patient,, patient verbalized understanding. Prescriptions written for prednisone 40 mg a day for the next 7 days, Flexeril 10 mg 3 times a day as needed for muscle relaxant. Discussed precautions on taking these medications with patient, verbalized understanding patient does have an upcoming appointment with orthopedics encouraged to keep that appointment. Discussed red flags including saddle anesthesia, loss of bowel or bladder control, or worsening pain or weakness in her legs, patient did verbalize understanding. Patient remained ambulatory and hemodynamically stable throughout stay. This text was generated using [employer] system, please disregard any oddities of phrase or misspellings. HPI General Mode of arrival: ambulatory. Date/Time Provider Initiated Documentation: 09/30/19 12:03. Limitations to Documentation: no limitations. Information obtained by: patient. HPI Narrative: 78-year-old female presents the ER with left paraspinous back pain which radiates into her buttock and left thigh. She reports pain radiation down to her left knee. She denies any recent injuries. She did break her pelvis approximately 11 weeks ago and does have a history of spinal stenosis which she gets steroid injections for. She denies any saddle anesthesia, loss of bowel or bladder control, constipation or urinary retention. She denies any weakness, numbness or tingling in her bilateral lower extremities. No history of back surgeries. She is alert and oriented x4 upon arrival. She does rate her pain a 8 out of 10 on a scale. Pain is rated is constant sharp shooting pains. Lying down makes pain better. Pain gets worse with walking and movement. Related Data Home Medications Medication Instructions Recorded Confirmed fluticasone propionate [Flonase] 2 spry NS DAILY PRN 06/07/13 09/30/19 albuterol sulfate [ProAir HFA] 2 puff INHALATION QID PRN #3 ea 03/21/17 09/30/19 cholecalciferol (vitamin D3) 2,000 unit PO DAILY 07/18/17 09/30/19 fluticasone propion-salmeterol 1 puff INHALATION PRN PRN 12/09/17 09/30/19 [Advair Diskus] metoprolol tartrate 25 mg tablet 25 mg PO BID #180 tab 10/18/18 09/30/19 fluoxetine 20 mg capsule 20 mg PO DAILY #90 cap 02/09/19 09/30/19 meclizine 25 mg PO TID PRN #10 tab 03/30/19 09/30/19 amlodipine 2.5 mg tablet 2.5 mg PO DAILY #90 tab 07/31/19 09/30/19 esomeprazole magnesium 40 mg 20 mg PO BID #180 tab-cap 07/31/19 09/30/19 capsule,delayed release simvastatin 40 mg tablet 40 mg PO DAILY #90 tab-cap 07/31/19 09/30/19 lisinopril 5 mg tablet 5 mg PO DAILY #90 tab 08/01/19 09/30/19 montelukast 10 mg tablet 10 mg PO DAILY #90 tab 08/01/19 09/30/19 cyclobenzaprine 10 mg PO TID PRN #14 tab 09/30/19 prednisone 40 mg PO DAILY 7 Days #14 tab 09/30/19 Previous Rx's Medication Instructions Recorded metoprolol tartrate 25 mg tablet 25 mg PO BID #180 tab 10/18/18 fluoxetine 20 mg capsule 20 mg PO DAILY #90 cap 02/09/19 meclizine 25 mg PO TID PRN #10 tab 03/30/19 amlodipine 2.5 mg tablet 2.5 mg PO DAILY #90 tab 07/31/19 esomeprazole magnesium 40 mg 20 mg PO BID #180 tab-cap 07/31/19 capsule,delayed release simvastatin 40 mg tablet 40 mg PO DAILY #90 tab-cap 07/31/19 lisinopril 5 mg tablet 5 mg PO DAILY #90 tab 08/01/19 montelukast 10 mg tablet 10 mg PO DAILY #90 tab 08/01/19 cyclobenzaprine 10 mg PO TID PRN #14 tab 09/30/19 prednisone 40 mg PO DAILY 7 Days #14 tab 09/30/19 Allergies Allergy/AdvReac Type Severity Reaction Status Date / Time adhesive Allergy Severe SKIN RASH Verified 09/30/19 12:06 Sulfa (Sulfonamide Allergy Intermediate ITCHING Verified 09/30/19 12:06 Antibiotics) losartan Allergy Unknown SWELLING, Verified 09/30/19 12:06 ITCHING hydrocodone AdvReac Itching Verified 09/30/19 12:06 with high doses General Stated Complaint: Nk/Back Pain CLAUDIA: 3 Review of Systems Narrative: Constitutional: Negative for weight loss, alert and oriented, well groomed, normal body habitus, appears comfortable. HEENT: Denies trauma, headaches, blurry vision, nasal discharge, sore throat, trouble swallowing. Chest: Denies chest pain, palpitations, irregular rhythm, hypertension. Respiratory: Denies Shortness of breath, cough, hemoptysis. GI: Denies abdominal pain, nausea, vomiting, diarrhea, constipation. : Denies dysuria, hematuria, flank pain, rectal bleeding. Musculoskeletal: Reports left-sided paraspinous lumbar to history of spinal stenosis Neuro: Denies dizziness, blurry vision, weakness, syncope, headache or facial numbness. Hematologic: Denies easy bruising, intolerance to heat or cold, hair loss. [facility] Medical History Acute bacterial bronchitis (Inactive) Arthritis of left knee (Resolved) s/p total knee Asthma (Chronic) Gastroparesis (Chronic) GERD (gastroesophageal reflux disease) (Chronic) H/O: pneumonia (Inactive) Headache (Inactive) Hypercholesterolemia (Chronic) Osteoarthritis (Chronic) Peptic ulcer (Inactive) Unilateral inguinal hernia (Inactive) Surgical History Arthroscopy, Shoulder LEFT Biopsy of breast (~2005) LEFT Cholecystectomy Extraction of cataract 06/11/13; RIGHT 06/26/13; LEFT FX ARM (02/15/14) PLATE AND SCREWS History of cataract removal with insertion of prosthetic lens (Inactive) Hysterectomy, Laproscopic 1 ovary remains Status post arthroscopy of shoulder (Inactive) Status post breast biopsy (Inactive) Status post cholecystectomy (Inactive) Status post laparoscopic hysterectomy (Inactive) Family History Mother Diabetes Essential hypertension Depression Heart disease Hyperlipidemia Father , WW II at age 24. No problems noted. Brother Diabetes Essential hypertension Hyperlipidemia Neoplasm MELANOMA Grandfather Diabetes Essential hypertension Grandfather Essential hypertension Heart disease Hyperlipidemia Grandmother Essential hypertension Neoplasm Stroke Grandmother Diabetes Blood disease Neoplasm COLON FAMILY HISTORY Myocardial infarction Son Substance abuse Depression Hyperlipidemia Daughter Diabetes Depression Hyperlipidemia Asthma Social History Smoking/Tobacco Use Status: Never Alcohol Intake: current Alcohol Intake frequency: holidays/special occasions only Alcohol type: hard liquor Drug use: Never Substance use type: does not use Do you feel safe at home: Yes Do you feel safe in your relationship?: Yes Exam Narrative Exam Narrative: Constitutional: Alert and oriented x3. Appears stated age. Normal body habitus. Head: Normocephalic, no trauma. Eyes: Pupils PERRLA, Red reflex noted, EOM's intact. Eyelids symmetrical without lesions, discharge, or swelling. ENT: Bilateral TM's WNL, External ear normal to inspection, no mastoid TTP, swelling, or erythema, Nasal turbinates WNL, no nasal discharge. Normal dentition, Posterior pharynx WNL, no exudate. Chest: RRR, Normal S1, S2, distal pulses intact. Resp: Lungs clear to auscultation bilaterally, no wheezes, rales, or rhonchi. Musculoskeletal: Normal gait, 5/5 strength to all four extremities. Negative straight leg test, no midline L-spine tenderness no crepitus no step-off with palpation. Skin: No suspicious rashes or lesions. Capillary refill less than 2 sec. Neurologic: Cranial nerves II-XII intact. Alert and oriented x 3. DTR's intact. Hematologic/Lymphatic: No ecchymosis, no lymphadenopathy. Course Vital Signs Vital signs: Vital Signs Temperature 36.4 C L 09/30/19 12:04 Pulse 77 09/30/19 12:04 Respiratory Rate 14 09/30/19 12:04 Blood Pressure 138/93 H 09/30/19 12:04 Pulse Oximetry 94 L 09/30/19 12:04 Temperature 36.4 C L 09/30/19 12:04 Temperature Source Tympanic 09/30/19 12:04 Pulse 77 09/30/19 12:04 Respiratory Rate 14 09/30/19 12:04 Respiratory Effort Non-Labored 09/30/19 12:05 Blood Pressure 138/93 H 09/30/19 12:04 Blood Pressure Position Sitting 09/30/19 12:04 Pulse Oximetry 94 L 09/30/19 12:04 Oxygen Delivery Method Room Air 09/30/19 12:04 Oxygen Flow Rate 0 09/30/19 12:04 Pain Level 8 09/30/19 12:04
[2019-09-30] MEDS: Ketorolac 30 MG/ML VIAL IM (12:29)
[2019-09-30] MEDS: Cyclobenzaprine 10 MG TAB PO (12:29)
[2019-09-30 12:34] LABS: Bilirubin Negative (Negative); Blood Negative (Negative); Clarity Clear (Clear); Glucose Negative (Negative); Ketones Negative (Negative); Leukocyte Esterase Negative (Negative); Nitrite Negative (Negative); Specific Gravity 1.025 (1.005-1.025); Urobilinogen 0.2 EU/dL (Up TO 0.2)
--- NOTE | 2019-09-30 12:50 | DI.RAD_ITS ---
EXAM: XR LUMBAR SPINE COMPLETE CLINICAL HISTORY: Lumbar radiculopathy, sciatica. TECHNIQUE: 2D digital imaging was performed. COMPARISON: MR MRI - LUMBAR SPINE WO CONTRAST from 09/02/2017 FINDINGS: BONES: No acute fracture or destructive lesion. Old mild compression fracture superior endplate L3. T here are facet degenerative changes greatest at L4-5 and L5-S1. DISKS: Moderate narrowing of the L4-5 and L5-S1 disc spaces. ALIGNMENT: Mild L4-5 spondylolisthesis. No scoliosis. SOFT TISSUE: Right upper quadrant surgical clips. Normal bowel gas pattern.. Mild aortic calcificat ion. IMPRESSION: Old mild L3 compression fracture. Degenerative disc changes and facet degenerative changes greatest at L4-5 and L5-S1. DATA REPOSITORY: RADIATION DOSE DELIVERED:
[2019-09-30] MEDS: predniSONE 20 MG TAB 40 MG PO (13:21)
--- NOTE | 2019-09-30 13:31 | DI.VRAD_ITS ---
PROCEDURE INFORMATION: Exam: XR Lumbosacral Spine, 4 or 5 Views Exam date and time: 09/30/2019 12:45 PM Age: 78 years old Clinical indication: Other: Lumbar radiculopathy, sciatica TECHNIQUE: Imaging protocol: XR of the lumbosacral spine, 4 or 5 views. COMPARISON: [facility] lumbar sp 2V 09/28/2018 8:30 AM FINDINGS: Vertebrae: 9 mm anterolisthesis at L4-L5 with mild disc space narrowing. Moderate disc space narrowing at L5-S1. Facet arthropathy in the lower lumbar spine. No acute fracture. Remote compression fracture superior endplate L3. Soft tissues: Unremarkable. IMPRESSION: 1. No acute fracture. Remote compression fracture superior endplate L3. 2. Degenerative changes lower lumbar spine as detailed above. Dictated and Authenticated by: Tootie Botello MD. Ordering:YULIANA Russell MD
[2019-09-30 14:14] VITALS: BP 126/70; PULSE 65; RESP 14; TEMP 36.6; O2SAT 96
== END 2019-09-30 14:10 | disposition home or self-care (01) ==
PROVIDERS: Emergency Provider Registered Nurse Emergency; PCP Family Medicine
DX: M54.42 Lumbago with sciatica, left side (principal); S32.030D Wedge compression fracture of third lumbar vertebra, subsequent encounter for fracture with routine healing; W07.XXXD Fall from chair, subsequent encounter
CPT/HCPCS: 96372; 99284; 72110; 81003; J1885; J7512

== ENCOUNTER 2019-10-15 01:54 | Outpatient (CLI) | payer MEDICARE, SELFPAY ==
--- NOTE | 2019-10-15 07:03 | DI.MRI_ITS ---
EXAM: MR LUMBAR SPINE WO CLINICAL HISTORY: LEFT LUMBAR RADICULOPATHY,M54.16. TECHNIQUE: Multiplanar multisequence MRI of the Lumbar spine was performed. COMPARISON: MR MRI - LUMBAR SPINE WO CONTRAST from 09/02/2017 FINDINGS: Bones: The last intervertebral disc space is designated the L5/S1 level for the numbering purpose of this examination. There is a stable old compression deformity of the superior endplate of L3. Stabl e mild L4-5 spondylolisthesis. There is decreased T1 signal and increased T2 signal bilaterally in t he sacral ala most suggestive of sacral insufficiency fractures. Cord: The conus tip ends at the T12 level. It is of normal size and signal intensity. T12-L1: Mild diffuse disc bulge. No central spinal canal or neural foraminal stenosis. L1-2: No disc herniations or bulges are present. No central spinal canal or neural foraminal stenosis . L2-3: Mild diffuse disc bulge, facet hypertrophy and ligamentum flavum hypertrophy are present result ing in mild narrowing of the central spinal canal. Mild bilateral neural foraminal stenosis. L3-4: Disc desiccation and a mild diffuse disc bulge. No central spinal canal stenosis. Stable bila teral neural foraminal stenosis. L4-5: Mild diffuse disc bulge. Disc desiccation. No central spinal canal stenosis. Stable bilatera l neural foraminal stenosis. L5-S1: Left paracentral disc herniation impinging upon the left S1 nerve root. No central spinal can al stenosis. Stable bilateral neural foraminal stenosis. Soft tissues: The paraspinal soft tissues are unremarkable. IMPRESSION: 1. Bilateral sacral insufficiency fractures. 2. Left paracentral disc herniation at L5-S1 impinging upon the left S1 nerve root. 3. Multilevel degenerative changes causing multilevel central spinal canal and neural foraminal steno sis as described above. DATA REPOSITORY:
== END 2019-10-15 02:14 ==
PROVIDERS: PCP Family Medicine; Visit Provider Family Medicine
DX: M84.48XA Pathological fracture, other site, initial encounter for fracture (principal); M51.27 Other intervertebral disc displacement, lumbosacral region; M48.061 Spinal stenosis, lumbar region without neurogenic claudication; M51.36 Other intervertebral disc degeneration, lumbar region
CPT/HCPCS: 72148

== ENCOUNTER 2020-01-11 04:23 | Outpatient (CLI) | payer MEDICARE, SELFPAY ==
--- NOTE | 2020-01-11 13:19 | DI.RAD_ITS ---
EXAM: XR CHEST 2V PA LATERAL in the money for CLINICAL HISTORY: Ongoing cough with green sputum,chest congestion,r09.89 TECHNIQUE: 2D digital imaging was performed. COMPARISON: CR,XR XR CHEST 2V PA LATERAL from 03/30/2019 FINDINGS: MEDIASTINUM: Normal. HEART: Normal. PULMONARY VASCULATURE: Normal. LUNGS: Clear. PLEURAL SPACE: No pleural effusion or pneumothorax. BONE:Within normal limits for the patient's age. OTHER FINDINGS:Normal. IMPRESSION: No acute pulmonary findings. DATA REPOSITORY: RADIATION DOSE DELIVERED:
== END 2020-01-11 04:43 ==
PROVIDERS: PCP Nurse Practitioner Family; Visit Provider Nurse Practitioner Family
DX: R05 Cough (principal); R09.89 Other specified symptoms and signs involving the circulatory and respiratory systems
CPT/HCPCS: 71046

== ENCOUNTER 2020-04-01 03:53 | Outpatient (CLI) | payer MEDICARE, SELFPAY ==
[2020-04-01 17:17] LABS: ALT 29 U/L (14-59); AST 18 U/L (15-37); Albumin 4.3 g/dL (3.4-5.0); Alkaline Phosphatase 75 U/L (46-116); Anion Gap 6.1 mmol/L (3-11); BUN 20 mg/dL (7-18); Bilirubin, Total 1.1 mg/dL (0.2-1.0); CO2 26.9 mmol/L (21.0-32.0); Calcium 8.9 mg/dL (8.5-10.1); Calculated LDL 68 mg/dL (<100); Chloride 106 mmol/L (98-107); Cholesterol 169 mg/dL (<200); Glucose 126 mg/dL (74-106); HDL Cholesterol 41 mg/dL (40-60); Sodium 139 mmol/L (136-145); Triglyceride 302 mg/dL (<150)
== END 2020-04-01 04:13 ==
PROVIDERS: PCP Nurse Practitioner Family; Visit Provider Nurse Practitioner Family
DX: R73.01 Impaired fasting glucose (principal); I10 Essential (primary) hypertension; E03.9 Hypothyroidism, unspecified; K21.9 Gastro-esophageal reflux disease without esophagitis
CPT/HCPCS: 36415; 80053; 80061

== ENCOUNTER 2020-05-01 01:59 | Outpatient (CLI) | payer MEDICARE, SELFPAY ==
--- NOTE | 2020-05-01 15:37 | DI.CT_ITS ---
EXAM: CT CHEST WO CLINICAL HISTORY: Cough lasting greater than 1 year,CHRONIC,R05. TECHNIQUE: Multi planar reconstructions were performed. CONTRAST MATERIAL: None COMPARISON: CT CT CHEST WO from 06/28/2018 FINDINGS: CHEST: LUNGS: There is platelike atelectasis in the lingular segment of the left lung which is unchanged fro 2019.. There are no new focal left lung findings nor pleural fluid seen. The opposite-right lung there unchanged benign-appearing increased markings in the medial segment right middle lobe. No new right lung findings. No pleural effusion on either side MEDIASTINUM: There is no hilar nor mediastinal adenopathy. Visualized thyroid unremarkable. CARDIAC: Heart size is normal. There is no pericardial effusion.Caliber of the thoracic aorta is wit hin normal limits. VISUALIZED UPPER ABDOMEN:There are no significant adrenal masses. Gallbladder surgically absent. Th ere is a cyst in the left hepatic lobe which measures 4.3 by 3.2 centimeters, unchanged. There is an element of a liver steatosis but no new discrete focal hepatic lesions are identified. OSSEOUS: Few mild compression fractures in the thoracic spinal column are unchanged. No new compress ion fractures evident.No lytic osseous lesions.. IMPRESSION: 1. Benign-appearing bilateral lung findings which are unchanged from 2019. No new infiltrates nor pl eural effusions and no new ominous pulmonary nodules. No new intrathoracic adenopathy evident on thi s noninfused study. 2. Left hepatic lobe cyst is unchanged from 2019. Hepatic steatosis noted. 3. No adrenal masses. RADIATION DOSE DELIVERED: 509.25mGy.cm Total DLP DATA REPOSITORY: All CT scans at this facility are submitted to the National Radiology Data Registry (NRDR) Dose Index Registry (DIR) with the [employer] (ACR). RADIATION OPTIMIZATION: All CT scans at this facility use at least one of these dose optimization te chniques: automated exposure control; mA and/or kV adjustment per patient size (includes targeted exa ms where dose is matched to clinical indication); or iterative reconstruction.
== END 2020-05-01 02:00 ==
LOC: DI 01:59
PROVIDERS: PCP Nurse Practitioner Family; Visit Provider Nurse Practitioner Family
DX: R05 Cough (principal); R91.8 Other nonspecific abnormal finding of lung field
CPT/HCPCS: 71250

== ENCOUNTER 2020-06-06 15:14 | Outpatient (REF) | payer MEDICARE, SELFPAY | END 2020-06-06 15:15 | disposition home or self-care (01) | LOC: NCHCN 15:14 | PROVIDERS: PCP Nurse Practitioner Family; Visit Provider Physician Assistant Medical | DX: N39.0 Urinary tract infection, site not specified (principal) | CPT/HCPCS: 87077; 87086; 87186 ==

== ENCOUNTER → 2020-07-10 12:18 | Outpatient (BNVA) | payer MEDICARE, SELFPAY | PROVIDERS: PCP Nurse Practitioner Family; Referring Provider Nurse Practitioner Family; Visit Provider Nurse Practitioner Gerontology | DX: N39.0 Urinary tract infection, site not specified (principal) | CPT/HCPCS: 81003; 99213 ==

== ENCOUNTER → 2020-07-14 15:21 | Outpatient (BNVA) | payer MEDICARE, SELFPAY | PROVIDERS: PCP Nurse Practitioner Family; Referring Provider Nurse Practitioner Family; Visit Provider Nurse Practitioner Gerontology | DX: N39.0 Urinary tract infection, site not specified (principal); R35.0 Frequency of micturition | CPT/HCPCS: 81003; 99213 ==

== ENCOUNTER 2020-07-21 16:37 | Outpatient (REF) | payer MEDICARE, SELFPAY ==
[2020-07-21 18:28] LABS: C Diff PCR Negative (Negative)
[2020-07-22 23:25] LABS: Campylobacter PCR Negative (Negative); Salmonella PCR Negative (Negative); Shiga Toxin PCR Negative (Negative); Shigella/Enteroinvasive Ecoli Negative (Negative)
== END 2020-07-21 16:38 | disposition home or self-care (01) ==
LOC: LBN 16:37
PROVIDERS: PCP Nurse Practitioner Family; Visit Provider Obstetrics & Gynecology
DX: K52.9 Noninfective gastroenteritis and colitis, unspecified (principal)
CPT/HCPCS: 87493; 87505; 83630

== ENCOUNTER 2020-09-15 14:27 | Outpatient (REF) | payer MEDICARE, SELFPAY ==
[2020-09-17 14:13] LABS: COVID-19 RT-PCR UVMMC Result Negative (Negative)
== END 2020-09-15 14:28 | disposition home or self-care (01) ==
LOC: LBN 14:27
PROVIDERS: PCP Nurse Practitioner Family; Visit Provider Nurse Practitioner Family
DX: Z20.822 Contact with and (suspected) exposure to COVID-19 (principal)
CPT/HCPCS: U0003

== ENCOUNTER 2020-11-28 20:39 | Outpatient (REF) | payer MEDICARE, SELFPAY ==
[2020-11-28 20:01] LABS: Bilirubin Negative (Negative); Blood Moderate (Negative); Clarity Cloudy (Clear); Glucose Negative (Negative); Ketones Negative (Negative); Leukocyte Esterase Large (Negative); Nitrite Positive (Negative); Specific Gravity 1.025 (1.005-1.025); Urobilinogen 0.2 EU/dL (Up TO 0.2)
[2020-11-28 20:23] LABS: WBC >50 HPF (0-5)
[2020-11-28 20:24] LABS: Bacteria Packed HPF (Negative); C & S Indicated? Yes
== END 2020-11-28 20:40 | disposition home or self-care (01) ==
LOC: LBN 20:39
PROVIDERS: PCP Nurse Practitioner Family; Visit Provider Physician Assistant
DX: N39.0 Urinary tract infection, site not specified (principal)
CPT/HCPCS: 87077; 81003; 81015; 87086; 87186

== ENCOUNTER 2020-12-08 17:33 | Outpatient (REF) | payer MEDICARE, SELFPAY ==
[2020-12-12 11:15] LABS: Total Fat/24 Hr 2 g/24 h (2 - 7)
== END 2020-12-08 17:34 | disposition home or self-care (01) ==
LOC: LBN 17:33
PROVIDERS: PCP Nurse Practitioner Family; Visit Provider Nurse Practitioner Family
DX: K52.9 Noninfective gastroenteritis and colitis, unspecified (principal)
CPT/HCPCS: 82710

== ENCOUNTER 2021-01-23 03:44 | Outpatient (CLI) | payer MEDICARE, SELFPAY ==
[2021-01-23 09:27] LABS: Calculated LDL 88 mg/dL (<100); Cholesterol 168 mg/dL (<200); HDL Cholesterol 46 mg/dL (40-60); Triglyceride 172 mg/dL (<150)
== END 2021-01-23 03:45 | disposition home or self-care (01) ==
LOC: LBO 03:44
PROVIDERS: PCP Nurse Practitioner Family; Visit Provider Nurse Practitioner Family
DX: E78.5 Hyperlipidemia, unspecified (principal); E66.3 Overweight
CPT/HCPCS: 36415; 80061

== ENCOUNTER 2021-01-28 12:27 | Outpatient (REF) | payer MEDICARE, SELFPAY ==
[2021-01-31 11:08] LABS: COVID-19 RT-PCR UVMMC Result Negative (Negative)
== END 2021-01-28 12:28 | disposition home or self-care (01) ==
LOC: LBN 12:27
PROVIDERS: PCP Nurse Practitioner Family; Visit Provider Nurse Practitioner Family
DX: Z20.822 Contact with and (suspected) exposure to COVID-19 (principal)
CPT/HCPCS: U0003

== ENCOUNTER 2021-03-24 20:40 | Outpatient (REF) | payer MEDICARE, SELFPAY ==
[2021-03-26 12:52] LABS: COVID-19 RT-PCR UVMMC Result Positive (Negative)
== END 2021-03-24 20:41 | disposition home or self-care (01) ==
LOC: LBN 20:40
PROVIDERS: PCP Nurse Practitioner Family; Visit Provider Nurse Practitioner
DX: Z20.822 Contact with and (suspected) exposure to COVID-19 (principal)
CPT/HCPCS: U0003

== ENCOUNTER 2021-07-01 18:34 | Outpatient (REF) | payer MEDICARE, SELFPAY | END 2021-07-01 18:35 | disposition home or self-care (01) | LOC: NCHCN 18:34 | PROVIDERS: PCP Nurse Practitioner Family; Visit Provider Nurse Practitioner Family | DX: R39.15 Urgency of urination (principal) | CPT/HCPCS: 87086 ==

== ENCOUNTER 2021-07-14 22:22 | Outpatient (REF) | payer MEDICARE, SELFPAY ==
[2021-07-16 11:53] LABS: COVID-19 RT-PCR UVMMC Result Negative (Negative)
== END 2021-07-14 22:23 | disposition home or self-care (01) ==
LOC: LBN 22:22
PROVIDERS: PCP Nurse Practitioner Family; Visit Provider Nurse Practitioner Family
DX: R09.89 Other specified symptoms and signs involving the circulatory and respiratory systems (principal); Z20.822 Contact with and (suspected) exposure to COVID-19
CPT/HCPCS: U0003; U0005

== ENCOUNTER 2021-07-29 18:42 | Outpatient (CLI) | payer MEDICARE, SELFPAY ==
--- NOTE | 2021-07-29 18:30 | RT.EKG_ITS ---
APPROVED REPORT Exam: Resting ECG Reason for Exam: chest discomfort Patient Location: O HR:39 bpm ECG Measurements Heart Rate 39 AXIS CO 348 P 49 QRSd 148 QRS 66 QT 596 T 50 QTc 483 Conclusion Sinus bradycardia...rate< 60 Prolonged CO interval...CO >230, V-rate 30- 49 Right bundle branch block...QRSd>120, terminal axis(90,270)
== END 2021-07-29 18:43 | disposition home or self-care (01) ==
LOC: DI.CM 18:42
PROVIDERS: PCP Nurse Practitioner Family; Visit Provider Physician Assistant
DX: R07.89 Other chest pain (principal); R00.1 Bradycardia, unspecified; I45.10 Unspecified right bundle-branch block
CPT/HCPCS: 93010

== ENCOUNTER 2021-07-29 19:53 | Emergency (ER) | payer MEDICARE, SELFPAY ==
[2021-07-29] VITALS (29 sets, daily range): BP systolic 111–139; BP diastolic 33–119; PULSE 36–84; RESP 12–23; TEMP 36.1; O2SAT 91–97
--- NOTE | 2021-07-29 19:15 | RT.EKG_ITS ---
APPROVED REPORT Exam: Resting ECG Reason for Exam: bradycardia Patient Location: E HR:39 bpm ECG Measurements Heart Rate 39 AXIS UT [id number] P 43 QRSd 142 QRS 63 QT 506 T 30 QTc 408 Conclusion Complete AV block with wide QRS complex...V-rate< 60, QRSd>140, AV dissoc Right bundle branch block...QRSd>120, terminal axis(90,270) thrid degree heartblock, with likely junctional bradycardia escape rhythm, t wave inversions anterior leads
--- NOTE | 2021-07-29 19:30 | DI.RAD_ITS ---
Exam(s) XR PORTABLE CHEST AP EXAM: XR PORTABLE CHEST AP CLINICAL HISTORY: SOB, heartblock TECHNIQUE: 2D digital imaging was performed of the chest. One image was obtained. An AP view was ob tained. COMPARISON: CR XR CHEST 2V PA LATERAL from 01/11/2020 FINDINGS: MEDIASTINUM: Normal. HEART: Normal. PULMONARY VASCULATURE: Normal. LUNGS: Clear. PLEURAL SPACE: No pleural effusion or pneumothorax. BONE:Within normal limits for the patient's age. OTHER FINDINGS:Normal. IMPRESSION: No acute pulmonary findings. DATA REPOSITORY: RADIATION DOSE DELIVERED:
--- NOTE | 2021-07-29 19:44 | ED.GENADUL_ITS ---
Discharge Plan Disposition Patient Disposition: [facility] Condition: Stable Discharge Details Chief Complaint: Dizzy/Sync Clinical Impression: Third degree atrioventricular block Primary Care Provider: Kodi Montez ED Provider: Richi Berkowitz Home Meds and New Rx's Prescriptions: No Action esomeprazole magnesium [Nexium] 40 mg capsule,delayed release(DR/EC) 20 mg PO BID Qty: 180 4RF metoprolol tartrate 25 mg tablet 25 mg PO BID Qty: 180 3RF cholecalciferol (vitamin D3) 2,000 UNIT tablet 2,000 unit PO DAILY albuterol sulfate [ProAir HFA] 90 mcg/actuation HFA aerosol inhaler 2 puff Inhalation QID PRN (Reason: asthma) Qty: 3 0RF Rx Instructions: J45.41 montelukast [Singulair] 10 mg tablet 10 mg PO DAILY Qty: 90 4RF simvastatin [Zocor] 40 mg tablet 40 mg PO DAILY Qty: 90 4RF fluoxetine [Prozac] 20 mg capsule 20 mg PO DAILY Qty: 90 4RF amlodipine 5 mg tablet 5 mg PO DAILY Qty: 90 4RF fluticasone propionate [Flonase] 16 GM spray,suspension 2 spry NS DAILY PRN fluticasone propion-salmeterol [Advair Diskus] 250-50 mcg/dose Blister With Device 1 puff Inhalation PRN PRN Medical Decision Making 80-year-old female history of hyperlipidemia, interstitial lung disease presents with exertional fatigue, exertional dyspnea, generalized fatigue, found to be bradycardic to the 30s/40s, mentating normally, maintaining hemodynamic status no respiratory distress mild dry cough, lungs clear bilaterally no peripheral edema. EKG showing third-degree heart block. Consider ischemic event versus electrolyte abnormality versus Lyme versus less likely medication related. Screening labs chest x-ray, atropine was given in the field with little improvement of heart rate, fluids running, will obtain CBC CMP mag, troponin, BNP, chest x-ray EKG. Will need transfer for electrophysiology and likely pacemaker placement. Will place patient on pads. If any clinical deterioration will transcutaneously or transvenously pace. 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 Rebolledo who has accepted patient for transfer in conjunction with Dr. Higgins to [facility] for pacemaker placement. Family and patient counseled regarding diagnosis and plan and they are amenable to transfer for treatment. HPI General Date/Time Provider Initiated Documentation: 07/29/21 20:00 . HPI Narrative: 80-year-old female history of hyperlipidemia interstitial lung disease, presents with dyspnea on exertion mild cough fatigue, found to be bradycardic at an outpatient visit, was given atropine x2 by EMS in route with minimal effect on heart rate. Patient denies history of heart attack stent or open heart surgery. Related Data Home Medications Medication Instructions Recorded Confirmed fluticasone propionate 50 2 spry NS DAILY PRN 06/07/13 07/29/21 mcg/actuation nasal spray,suspension (Flonase) cholecalciferol (vitamin D3) 50 2,000 unit PO DAILY 07/18/17 07/29/21 mcg (2,000 unit) tablet fluticasone 250 mcg-salmeterol 50 1 puff inhalation PRN PRN 12/09/17 07/29/21 mcg/dose blistr powdr for inhalation (Advair Diskus) esomeprazole magnesium 40 mg 20 mg PO BID #180 tab-caps 07/31/19 07/29/21 capsule,delayed release (Nexium) albuterol sulfate 90 mcg/actuation 2 puff inhalation QID PRN asthma 02/20/20 07/29/21 aerosol inhaler (ProAir HFA) #3 ea montelukast 10 mg tablet 10 mg PO DAILY #90 tabs 08/25/20 07/29/21 (Singulair) simvastatin 40 mg tablet (Zocor) 40 mg PO DAILY #90 tab-caps 08/25/20 07/29/21 metoprolol tartrate 25 mg tablet 25 mg PO BID hypertension #180 tabs 12/15/20 07/29/21 fluoxetine 20 mg capsule (Prozac) 20 mg PO DAILY #90 caps 03/10/21 07/29/21 amlodipine 5 mg tablet 5 mg PO DAILY #90 tabs 06/08/21 07/29/21 Previous Rx's Medication Instructions Recorded esomeprazole magnesium 40 mg 20 mg PO BID #180 tab-caps 07/31/19 capsule,delayed release (Nexium) albuterol sulfate 90 mcg/actuation 2 puff inhalation QID PRN asthma 02/20/20 aerosol inhaler (ProAir HFA) #3 ea montelukast 10 mg tablet 10 mg PO DAILY #90 tabs 08/25/20 (Singulair) simvastatin 40 mg tablet (Zocor) 40 mg PO DAILY #90 tab-caps 08/25/20 metoprolol tartrate 25 mg tablet 25 mg PO BID hypertension #180 tabs 12/15/20 fluoxetine 20 mg capsule (Prozac) 20 mg PO DAILY #90 caps 03/10/21 amlodipine 5 mg tablet 5 mg PO DAILY #90 tabs 06/08/21 Allergies Allergy/AdvReac Type Severity Reaction Status Date / Time adhesive Allergy Severe SKIN RASH Verified 07/29/21 19:43 Sulfa (Sulfonamide Allergy Intermediate ITCHING Verified 07/29/21 19:43 Antibiotics) losartan Allergy Unknown SWELLING, Verified 07/29/21 19:43 ITCHING hydrocodone AdvReac Itching Verified 07/29/21 19:43 with high doses General Stated Complaint: Dizzy/Sync CLAUDIA: 2 Review of Systems Narrative: Review of Systems Constitutional: fatigue Eyes: negative ENT: negative Cardiovascular: bradycardia Respiratory: sob Gastrointestinal: negative : negative Musculoskeletal: negative Skin: negative Neurologic: negative Psych: negative PFSH All Active Problems Third degree atrioventricular block (Acute) Urinary tract infection (Acute) COVID-19 (Acute ~03/26/21) Chronic cough (Acute) Left lumbar radiculopathy (Acute) Fracture, pelvis closed (Chronic) Hiatal hernia (Acute) Polyp of colon (Chronic) Asthma (Chronic) Interstitial lung disease (Chronic) a. 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 well controlled on SSRI PUD (peptic ulcer disease) (Chronic) Overweight (Chronic) Fibrocystic breast (Chronic) H/O surgical procedure (Chronic) a. Bilateral shoulder surgeries b. Right medial meniscus repair c. Rahman's cyst surgery d. Cataract surgery x 2 e. S/p Cholecystectomy f. S/p hysterectomy for benign reasons g. s/p breast biopsy h. S/p intraocular lens implants Hip bursitis, left (Chronic) Status post arthroscopy of right knee (Chronic) Status post partial lateral meniscectomy right knee with associated mild to moderate focal arthritis. Follow-up in approximately 2 weeks for use of dural Jac as a [place] supplement prior to her trip to [facility]?n [place]. Medical History (Updated 07/29/21 @ 21:43 by Richi Berkowitz MD) Acute bacterial bronchitis Arthritis of left knee s/p total knee Asthma Gastroparesis GERD (gastroesophageal reflux disease) H/O: pneumonia Headache Hypercholesterolemia Osteoarthritis Peptic ulcer Unilateral inguinal hernia Surgical History Arthroscopy, Shoulder LEFT Biopsy of breast (~2005) LEFT Cholecystectomy Extraction of cataract 06/11/13; RIGHT 06/26/13; LEFT FX ARM (02/15/14) PLATE AND SCREWS History of cataract removal with insertion of prosthetic lens Hysterectomy, Laproscopic 1 ovary remains Status post arthroscopy of shoulder Status post breast biopsy Status post cholecystectomy Status post laparoscopic hysterectomy Family History Mother Diabetes Essential hypertension Depression Heart disease Hyperlipidemia Father , WW II at age 24. No problems noted. Brother Diabetes Essential hypertension Hyperlipidemia Neoplasm MELANOMA Grandfather Diabetes Essential hypertension Grandfather Essential hypertension Heart disease Hyperlipidemia Grandmother Essential hypertension Neoplasm Stroke Grandmother Diabetes Blood disease Neoplasm COLON FAMILY HISTORY Myocardial infarction Son Substance abuse Depression Hyperlipidemia Daughter Diabetes Depression Hyperlipidemia Asthma Social History Smoking/Tobacco Use Status: Never Smoking risk assessment performed?: Yes Alcohol Intake: current Alcohol Intake frequency: a few times a week Alcohol type: hard liquor Drug use: Socially Substance use type: does not use Caregiver/Support person: No Household members: none Housing: house Pets and animals: No What is your relationship status?: How often do you talk on the phone with friends or family?: three or more times per week Panel score (0-1 are the most socially isolated patients): 1 Seatbelt use: always Drive intox or ride w/intox operator and truck driver: No Do you feel safe at home: Yes Do you feel safe in your relationship?: Yes Exam Narrative Exam Narrative: Physical Examination General: alert, awake, cooperative, resting comfortably, no acute distress HEENT: normocephalic, atraumatic; PERRL, EOM intact, conjunctiva normal; no nasal discharge; moist mucous membranes, oral and pharyngeal mucosa normal, tolerating secretions Neck: supple, trachea midline; full ROM Chest: normal to inspection Respiratory: normal respiratory effort, speaking in full sentences, clear to auscultation, no wheezing, rales or rhonchi Cardiac: Bradycardia, regular rhythm, S1S2 intact, no murmurs rubs or gallops GI: abdomen soft, non-tender, non-distended; no palpable mass or hepatosplenomegaly Skin: no lesions, rashes or trauma appreciated Neuro: AAOx3, normal speech, moving all extremities Extremities: No peripheral edema Psych: Appropriate mood and affect Course Vital Signs Vital signs: Vital Signs Temperature 36.1 C L 07/29/21 19:37 Pulse 45 L 07/29/21 19:37 Respiratory Rate 22 07/29/21 19:37 Blood Pressure 130/44 L 07/29/21 19:37 Pulse Oximetry 94 07/29/21 19:37 Temperature 36.1 C L 07/29/21 19:37 Temperature Source Skin 07/29/21 19:37 Pulse 45 L 07/29/21 19:37 Respiratory Rate 22 07/29/21 19:37 Blood Pressure 130/44 L 07/29/21 19:37 Blood Pressure Position Sitting 07/29/21 19:37 Pulse Oximetry 94 07/29/21 19:37 Pain Level 0 07/29/21 19:37
[2021-07-29 20:11] LABS: Abs Immature Grans 0.06 10^3/uL (0.0-0.06); Absolute Basophil Count 0.05 10^3/uL (0.0-0.2); Absolute Eosinophil Count 0.26 10^3/uL (0.0-0.7); Absolute Lymphocyte Count 3.16 10^3/uL (1.2-3.4); Absolute Monocyte Count 1.14 10^3/uL (0.1-0.8); Absolute Neutrophil Count 3.82 10^3/uL (1.2-6.7); Basophils % 0.6; Eosinophils % 3.1; HCT 37.5 % (36.0-46.0); HGB 12.8 g/dL (11.2-15.7); Immature Grans % 0.7; Lymphocytes % 37.2; MCH 31.2 pg (27.0-33.0); MCHC 34.1 % (32.0-36.0); MCV 92 fL (80-95); MPV 11.1 fL (8.0-11.0); Monocytes % 13.4; Platelet Count 188 10^3/uL (130-400); RDW 12.7 % (11.7-14.6); RDW-SD 42.3 fL; WBC 8.49 10^3/uL (4.4-10.8)
[2021-07-29 20:25] LABS: PTT Activated 24.2 sec (21.0-27.5); Prothrombin Time 10.1 sec (9.3-11.0)
[2021-07-29 20:33] LABS: ALT 38 U/L (14-59); AST 17 U/L (15-37); Albumin 3.5 g/dL (3.4-5.0); Alkaline Phosphatase 50 U/L (46-116); Anion Gap 8.1 mmol/L (3-11); BUN 29 mg/dL (7-18); Bilirubin, Total 1.1 mg/dL (0.2-1.0); CO2 25.9 mmol/L (21.0-32.0); CREATININE 1.2 mg/dL (0.55-1.02); Calcium 8.4 mg/dL (8.5-10.1); Chloride 109 mmol/L (98-107); Estimated GFR 43.34 (mL/min/1.73m2); Glucose 111 mg/dL (74-106); Magnesium 2.1 mg/dL (1.8-2.4); NT-proBNP 1626 pg/mL (<300); Potassium 3.9 mmol/L (3.5-5.1); Sodium 143 mmol/L (136-145); TSH (W/Ref FT4) 3.37 uIU/mL (0.36-3.74); Total Protein 6.6 g/dL (6.4-8.2); Troponin I < 50 ng/L (<or=60)
[2021-07-29 20:53] LABS: COVID-19 PCR Negative (Negative); Influenza A PCR Negative (Negative); Influenza B PCR Negative (Negative); RSV PCR Negative (Negative)
[2021-07-29 21:12] LABS: Source Nasopharynx
--- NOTE | 2021-07-29 21:21 | DI.VRAD_ITS ---
PROCEDURE INFORMATION: Exam: XR Chest Exam date and time: 07/29/2021 8:20 PM Age: 80 years old Clinical indication: Shortness of breath TECHNIQUE: Imaging protocol: XR of the chest. Views: 1 view. COMPARISON: CT CHEST WO 05/01/2020 3:36 PM FINDINGS: Lungs: Unremarkable. No consolidation. Pleural spaces: Unremarkable. No pleural effusion. No pneumothorax. Heart/Mediastinum: Unremarkable. No cardiomegaly. Bones/joints: Previous repair left humerus fracture. IMPRESSION: No acute abnormality identified. Dictated and Authenticated by: Gerardo Lewis MD. Ordering:LAURA Stoddard MD
[2021-07-31 11:22] LABS: Lyme Ab w Rflx to Lyme Confirm Negative (Negative)
[2021-08-02 01:21] LABS: Anaplasma phagocytophilum Negative (Negative); B. miyamotoi PCR Negative (Negative); Babesia divergens/MO-1 Negative (Negative); Babesia duncani Negative (Negative); Babesia microti Negative (Negative); Ehrlichia chaffeensis Negative (Negative); Ehrlichia ewingii/canis Negative (Negative); Ehrlichia muris eauclairensis Negative (Negative)
== END 2021-07-29 22:33 | disposition short-term general hospital (02) ==
PROVIDERS: Emergency Provider Emergency Medicine; PCP Nurse Practitioner Family
DX: I44.2 Atrioventricular block, complete (principal); R00.1 Bradycardia, unspecified; R06.02 Shortness of breath; Z20.822 Contact with and (suspected) exposure to COVID-19
CPT/HCPCS: 80053; 87637; 87798; 93005; 99285; 71045; 83735; 83880; 84443; 84484; 85025; 85610; 85730; 86618; 93010

== ENCOUNTER → 2021-08-12 01:58 | Outpatient (CLI) | payer MEDICARE, SELFPAY ==
--- NOTE | 2021-08-12 | DI.US_ITS ---
Exam(s) US ABDOMEN LIMITED EXAM: US ABDOMEN LIMITED CLINICAL HISTORY: LIVER LESION, K76.9, LIVER CYST SEEN ON TTE TECHNIQUE: Ultrasound abdomen performed using standard protocol. COMPARISON: , CT CT CHEST WO from 05/01/2020 FINDINGS: There is no ascites evident. LIVER: The liver appears hyperechoic, indicating steatosis. There is a 5 by 4 cm partially septated cyst again noted in the left hepatic lobe as seen on the prior CT scan listed above. GALLBLADDER/BILIARY: The gallbladder surgically absent. The common hepatic duct is6-7 millimeters, related post cholecystectomy status. PANCREAS: There is no evidence of pancreatic mass nor dilatation of the pancreatic duct. RIGHT KIDNEY:No evidence of solid mass, calculus, nor hydronephrosis. No cortical cysts evident. IMPRESSION: 1. Gallbladder surgically absent. Biliary tree is commensurate with post cholecystectomy status 2. Hepatic cyst again noted. Hepatic steatosis again noted. 3. There is no ascites. DATA REPOSITORY:
== END ==
PROVIDERS: PCP Nurse Practitioner Family
DX: K76.89 Other specified diseases of liver (principal); K76.0 Fatty (change of) liver, not elsewhere classified; Z90.89 Acquired absence of other organs
CPT/HCPCS: 76705

== ENCOUNTER 2021-08-24 16:37 | Outpatient (CLI) | payer MEDICARE, SELFPAY ==
--- NOTE | 2021-08-24 16:30 | RT.EKG_ITS ---
APPROVED REPORT Exam: Resting ECG Reason for Exam: per provider order Patient Location: O HR:89 bpm ECG Measurements Heart Rate 89 AXIS MN 218 P 33 QRSd 136 QRS -75 QT 385 T 93 QTc 470 Conclusion Unknown rhythm, irregular rate...V-rate 60-103, variation>10% Borderline prolonged MN interval...MN >212, V-rate 50- 90 IVCD, consider RBBB...QRSd>120mS, terminal axis(90,270) Left ventricular hypertrophy...multiple LVH criteria ST elevation secondary to LVH...Multiple VCG criteria Nonspecific T abnormalities, lateral leads...T <-0.10mV, I aVL V5 V6 Baseline artifact
== END 2021-08-24 16:38 | disposition home or self-care (01) ==
LOC: DI.CM 16:38
PROVIDERS: PCP Nurse Practitioner Family; Visit Provider Nurse Practitioner Family
DX: R06.02 Shortness of breath (principal)
CPT/HCPCS: 93010

== ENCOUNTER 2021-08-24 17:38 | Emergency (ER) | payer MEDICARE, SELFPAY ==
[2021-08-24] VITALS (35 sets, daily range): BP systolic 105–167; BP diastolic 53–82; PULSE 59–88; RESP 12–26; TEMP 36.3–36.6; O2SAT 94–98
--- NOTE | 2021-08-24 17:15 | RT.EKG_ITS ---
APPROVED REPORT Exam: Resting ECG Reason for Exam: chest pain Patient Location: E HR:92 bpm ECG Measurements Heart Rate 92 AXIS RI 227 P 23 QRSd 137 QRS -73 QT 389 T 94 QTc 482 Conclusion Sinus rhythm...normal P axis, V-rate 60- 99 Prolonged RI interval...RI >215, V-rate 91-120 Left ventricular hypertrophy...multiple LVH criteria ST elevation secondary to LVH...Multiple VCG criteria
--- NOTE | 2021-08-24 17:45 | DI.CT_ITS ---
Exam(s) CT CHEST WO EXAM: CT CHEST WO CLINICAL HISTORY: 2 weeks s/p pacemaker, ?wire placement TECHNIQUE: Imaging Protocol: Axial computed tomography images with coronal and sagittal reformatted images were created and reviewed CONTRAST MATERIAL: Noncontrast COMPARISON: CT CT CHEST WO from 05/01/2020 CR,XR XR PORTABLE CHEST AP from 07/29/2021 FINDINGS: Tracheobronchial tree: No bronchiectasis or mucous plugging. Mediastinum and Nuris: No dominant adenopathy or fluid collection. Pulmonary parenchyma: No consolidation or dominant measurable mass. Stable 5 millimeter right upper l obe nodule. Minimal anterior scarring. Pleura: No effusion or pneumothorax. Heart: Pacemaker overlying left upper chest wall. Motion artifact at pacemaker leads. One lead posi tioned in upper right atrium and the other in the right ventricle.. The heart is not dilated. No cor onary artery calcifications are seen. No pericardial effusion. Aorta: Thoracic aorta non-dilated. Upper abdomen: Small hiatal hernia. Status post cholecystectomy. Stable liver cyst. Mild hepatic s teatosis. Lymph nodes: Within normal limits. Bones: Hardware in both shoulders. Stable mild compression fractures. Soft tissues: Unremarkable. IMPRESSION: Somewhat suboptimal view of the pacemaker leads due to motion. Leads appear position in right atrium and right ventricle. RADIATION DOSE DELIVERED: 527.09mGy.cm Total DLP DATA REPOSITORY: All CT scans at this facility are submitted to the National Radiology Data Registry (NRDR) Dose Index Registry (DIR) with the [employer] (ACR). RADIATION OPTIMIZATION: All CT scans at this facility use at least one of these dose optimization te chniques: automated exposure control; mA and/or kV adjustment per patient size (includes targeted exa ms where dose is matched to clinical indication); or iterative reconstruction.
--- NOTE | 2021-08-24 17:55 | ED.GENADUL_ITS ---
Discharge Plan Disposition Patient Disposition: HOME Condition: Stable Discharge Details Clinical Impression: Fatigue, Cardiac pacemaker recipient Primary Care Provider: Kodi Montez ED Provider: Garth Vines Home Meds and New Rx's Prescriptions: Continued esomeprazole magnesium [Nexium] 40 mg capsule,delayed release(DR/EC) 20 mg PO BID Qty: 180 4RF cholecalciferol (vitamin D3) 2,000 UNIT tablet 2,000 unit PO DAILY albuterol sulfate [ProAir HFA] 90 mcg/actuation HFA aerosol inhaler 2 puff Inhalation QID PRN (Reason: asthma) Qty: 3 0RF Rx Instructions: J45.41 montelukast [Singulair] 10 mg tablet 10 mg PO DAILY Qty: 90 4RF simvastatin [Zocor] 40 mg tablet 40 mg PO DAILY Qty: 90 4RF fluoxetine [Prozac] 20 mg capsule 20 mg PO DAILY Qty: 90 4RF amlodipine 5 mg tablet 5 mg PO DAILY Qty: 90 4RF fluticasone propionate [Flonase] 16 GM spray,suspension 2 spry NS DAILY PRN fluticasone propion-salmeterol [Advair Diskus] 250-50 mcg/dose Blister With Device 1 puff Inhalation PRN PRN Discharge Instructions Instructions: Fatigue (ED) Additional Instructions: your blood work, ekg and cat scan did not show concerning findings follow up with your primary care provider and chief medical technologist if you feel more ill, have worsening shortness of breath or chest pain return to the emergency department Medical Decision Making 80 yo female with hx of 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 She denies any chest pain now but states she sometimes states her chest feels achy and can't state when it occurs, doesn't believe it occurs with ambulation or exertion and denies diaphoresis, n/v, radiation of the pain. She denies leg pain, abdomen pain. She is speaking in full sentences on exam, normal oxygenation and heart rate. She has clear lung sounds, no jvd, no leg swelling and no calf tenderness. Her ekg shows lvh and a rate of 92. Will obtain troponin, cbc, cmp and to evaluate for wire placement of the pacer obtain noncontrast ct of the chest. She has no hypoxia, tachycardia or evidence of dvt on exam so do not feel cta for pe indicated pt remains stable and feels well. Labs and ct unremarkable. Discussed with pt and suspect that her symptoms could be related to adjusting to having a pacemaker. Discussed admission vs delta troponin and discharge and she would prefer delta troponin and if negative discharge which I feel is reasonable given lack of chest pain here and only had mild aches in the last few days, no pressure, n/v, or radiation of pain. pt sitting in bed laughing and eating in no distress, delta troponin negative and she remains asymptomatic. Stable for d/c and advised to f/u with pcp and return precautions given Differential Diagnosis Differential Diagnosis: anemia, lead migration, deconditioning Medical Records Medical records reviewed: Yes I reviewed the patient's medical records. Imaging Data Radiologic Study: Attestation: I personally reviewed and interpreted this imaging study as follows: Imaging: CT Scan Radiologist's impression: IMPRESSION: 1. No active disease is seen in the chest. 2. Cardiac pacemaker implanted in the left anterior chest wall with leads in the right atrium and ventricle. 3. 2.3 cm hiatal hernia. Radiologic Study #2: Attestation: I personally reviewed and interpreted this imaging study as follows: Imaging: X-Ray Radiologist's impression: sinus rhythm, rate of 75, no acute st t wave ischemic findings Lab Data Lab results reviewed: Yes I reviewed the patient's lab results. ECG Data Attestation: I personally reviewed and interpreted this ECG (s) as follows: Prior ECG tracings: available for review Interpretation: sinus, rate of 92, lvh, no stemi HPI General Mode of arrival: EMS . Date/Time Provider Initiated Documentation: 08/24/21 17:43 . Limitations to Documentation: no limitations . Information obtained by: patient . History of Present Illness 80 year old F presents to the emergency department with the chief complaint of short of breath, described as moderate, Patient started experiencing this week(s) (2) and it has been constant. No relieving factors improve symptom(s), No exacerbating factors reported . Patient notes denies cough and fever/chills. Patient did receive the following treatments prior to arrival, none Related Data Home Medications Medication Instructions Recorded Confirmed fluticasone propionate 50 2 spry NS DAILY PRN 06/07/13 08/24/21 mcg/actuation nasal spray,suspension (Flonase) cholecalciferol (vitamin D3) 50 2,000 unit PO DAILY 07/18/17 08/24/21 mcg (2,000 unit) tablet fluticasone 250 mcg-salmeterol 50 1 puff inhalation PRN PRN 12/09/17 08/24/21 mcg/dose blistr powdr for inhalation (Advair Diskus) esomeprazole magnesium 40 mg 20 mg PO BID #180 tab-caps 07/31/19 08/24/21 capsule,delayed release (Nexium) albuterol sulfate 90 mcg/actuation 2 puff inhalation QID PRN asthma 02/20/20 08/24/21 aerosol inhaler (ProAir HFA) #3 ea montelukast 10 mg tablet 10 mg PO DAILY #90 tabs 08/25/20 08/24/21 (Singulair) simvastatin 40 mg tablet (Zocor) 40 mg PO DAILY #90 tab-caps 08/25/20 08/24/21 fluoxetine 20 mg capsule (Prozac) 20 mg PO DAILY #90 caps 03/10/21 08/24/21 amlodipine 5 mg tablet 5 mg PO DAILY #90 tabs 06/08/21 08/24/21 Previous Rx's Medication Instructions Recorded esomeprazole magnesium 40 mg 20 mg PO BID #180 tab-caps 07/31/19 capsule,delayed release (Nexium) albuterol sulfate 90 mcg/actuation 2 puff inhalation QID PRN asthma 02/20/20 aerosol inhaler (ProAir HFA) #3 ea montelukast 10 mg tablet 10 mg PO DAILY #90 tabs 08/25/20 (Singulair) simvastatin 40 mg tablet (Zocor) 40 mg PO DAILY #90 tab-caps 08/25/20 fluoxetine 20 mg capsule (Prozac) 20 mg PO DAILY #90 caps 03/10/21 amlodipine 5 mg tablet 5 mg PO DAILY #90 tabs 06/08/21 Allergies Allergy/AdvReac Type Severity Reaction Status Date / Time adhesive Allergy Severe SKIN RASH Verified 08/24/21 16:14 Sulfa (Sulfonamide Allergy Intermediate ITCHING Verified 08/24/21 16:14 Antibiotics) losartan Allergy Unknown SWELLING, Verified 08/24/21 16:14 ITCHING hydrocodone AdvReac Itching Verified 08/24/21 16:14 with high doses General Stated Complaint: Chest Pain CLAUDIA: 1 Review of Systems All systems reviewed & are unremarkable except as noted in HPI and below Constitutional Constitutional: Denies chills, Denies fever(s) and Denies weakness Cardiovascular Cardiovascular: Reports dyspnea Respiratory Respiratory: Denies cough and Reports dyspnea Gastrointestinal Gastrointestinal: Denies abdominal pain, Denies nausea and Denies vomiting Musculoskeletal Musculoskeletal: Denies joint swelling Integumentary/Breasts Skin/Breast: Denies rash Neurologic Neurologic: Denies weakness PFSH All Active Problems Fatigue (Acute) Cardiac pacemaker recipient (Acute) Liver cyst (Acute) Third degree atrioventricular block (Acute) Urinary tract infection (Acute) COVID-19 (Acute ~03/26/21) Left lumbar radiculopathy (Acute) Fracture, pelvis closed (Chronic) Hiatal hernia (Acute) Polyp of colon (Chronic) Asthma (Chronic) Interstitial lung disease (Chronic) a. 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 well controlled on SSRI PUD (peptic ulcer disease) (Chronic) Overweight (Chronic) Fibrocystic breast (Chronic) H/O surgical procedure (Chronic) a. Bilateral shoulder surgeries b. Right medial meniscus repair c. Rahman's cyst surgery d. Cataract surgery x 2 e. S/p Cholecystectomy f. S/p hysterectomy for benign reasons g. s/p breast biopsy h. S/p intraocular lens implants Hip bursitis, left (Chronic) Status post arthroscopy of right knee (Chronic) Status post partial lateral meniscectomy right knee with associated mild to moderate focal arthritis. Follow-up in approximately 2 weeks for use of dura l Jac as a Visco supplement prior to her trip to [facility] [place]. Medical History (Updated 08/24/21 @ 20:19 by Garth Vines MD) Acute bacterial bronchitis Arthritis of left knee s/p total knee Asthma Gastroparesis GERD (gastroesophageal reflux disease) H/O: pneumonia Headache Hypercholesterolemia Osteoarthritis Peptic ulcer Unilateral inguinal hernia Surgical History Arthroscopy, Shoulder LEFT Biopsy of breast (~2005) LEFT Cholecystectomy Extraction of cataract 06/11/13; RIGHT 06/26/13; LEFT FX ARM (02/15/14) PLATE AND SCREWS History of cataract removal with insertion of prosthetic lens Hysterectomy, Laproscopic 1 ovary remains Status post arthroscopy of shoulder Status post breast biopsy Status post cholecystectomy Status post laparoscopic hysterectomy Family History Mother Diabetes Essential hypertension Depression Heart disease Hyperlipidemia Father , WW II at age 24. No problems noted. Brother Diabetes Essential hypertension Hyperlipidemia Neoplasm MELANOMA Grandfather Diabetes Essential hypertension Grandfather Essential hypertension Heart disease Hyperlipidemia Grandmother Essential hypertension Neoplasm Stroke Grandmother Diabetes Blood disease Neoplasm COLON FAMILY HISTORY Myocardial infarction Son Substance abuse Depression Hyperlipidemia Daughter Diabetes Depression Hyperlipidemia Asthma Social History Smoking/Tobacco Use Status: Never Smoking risk assessment performed?: Yes Alcohol Intake: current Alcohol Intake frequency: a few times a week Alcohol type: hard liquor Drug use: Socially Substance use type: does not use Caregiver/Support person: No Household members: none Housing: house Pets and animals: No What is your relationship status?: How often do you talk on the phone with friends or family?: three or more times per week Panel score (0-1 are the most socially isolated patients): 1 Seatbelt use: always Drive intox or ride w/intox corporate driver: No Do you feel safe at home: Yes Do you feel safe in your relationship?: Yes Exam Const General: no acute distress Orientation: alert HENMT Head: normal to inspection Ears: external ears normal General nose exam: external nose normal Mouth: moist mucous membranes Eyes General: appearance normal, both eyes and all related structures Neck Neck: normal visual inspection Resp Effort & Inspection: normal respiratory effort and able to speak in complete sentences Cardio Rate: regular rate Skin General skin exam: no rashes or lesions noted Neuro General: patient alert and patient oriented x3 Extrem General: normal to inspection Psych Mental Status: mental status grossly normal Course Vital Signs Vital signs: Vital Signs Temperature 36.6 C 08/24/21 17:31 Pulse 88 08/24/21 17:31 Respiratory Rate 18 08/24/21 17:31 Blood Pressure 167/75 H 08/24/21 17:31 Pulse Oximetry 97 08/24/21 17:31 Temperature 36.6 C 08/24/21 17:31 Temperature Source Skin 08/24/21 17:31 Pulse 88 08/24/21 17:31 Respiratory Rate 18 08/24/21 17:31 Blood Pressure 167/75 H 08/24/21 17:31 Blood Pressure Position Supine 08/24/21 17:31 Pulse Oximetry 97 08/24/21 17:31 Oxygen Delivery Method Room Air 08/24/21 17:31 Oxygen Flow Rate 0 08/24/21 17:31 Pain Level 0 08/24/21 17:31 Comment 08/24/21 17:31
[2021-08-24 17:57] LABS: BE (Venous) -1 mmol/L (-2-3); HCO3 (Venous) 24 mmol/L (23-28); O2 Sat (Venous) 84 %; TCO2 (Venous) 21 mmol/L (24-29); pCO2 (Venous) 41 mmHg (41-51); pH (Venous) 7.38 (7.31-7.41); pO2 (Venous) 50 mmHg
[2021-08-24 17:59] LABS: Abs Immature Grans 0.05 10^3/uL (0.0-0.06); Absolute Basophil Count 0.05 10^3/uL (0.0-0.2); Absolute Eosinophil Count 0.21 10^3/uL (0.0-0.7); Absolute Lymphocyte Count 2.42 10^3/uL (1.2-3.4); Absolute Monocyte Count 0.93 10^3/uL (0.1-0.8); Absolute Neutrophil Count 4.13 10^3/uL (1.2-6.7); Basophils % 0.6; Eosinophils % 2.7; HCT 41.4 % (36.0-46.0); HGB 14.2 g/dL (11.2-15.7); Immature Grans % 0.6; Lymphocytes % 31.1; MCH 30.5 pg (27.0-33.0); MCHC 34.3 % (32.0-36.0); MCV 89 fL (80-95); MPV 10.5 fL (8.0-11.0); Monocytes % 11.9; Neutrophils % 53.1; Platelet Count 239 10^3/uL (130-400); RBC 4.66 10^6/uL (3.93-5.22); RDW 12.1 % (11.7-14.6); RDW-SD 39.6 fL; WBC 7.79 10^3/uL (4.4-10.8)
[2021-08-24 18:07] LABS: Source Nasal/Nares
[2021-08-24 18:23] LABS: ALT 28 U/L (14-59); AST 18 U/L (15-37); Alkaline Phosphatase 65 U/L (46-116); Anion Gap 10.9 mmol/L (3-11); BUN 20 mg/dL (7-18); CO2 24.1 mmol/L (21.0-32.0); CREATININE 0.9 mg/dL (0.55-1.02); Calcium 9.1 mg/dL (8.5-10.1); Chloride 103 mmol/L (98-107); Glucose 153 mg/dL (74-106); NT-proBNP 52 pg/mL (<300); Potassium 3.7 mmol/L (3.5-5.1); Sodium 138 mmol/L (136-145); TSH (W/Ref FT4) 2.77 uIU/mL (0.36-3.74); Total Protein 7.4 g/dL (6.4-8.2); Troponin I < 50 ng/L (<or=60)
[2021-08-24 19:04] LABS: COVID-19 PCR Negative (Negative)
--- NOTE | 2021-08-24 19:16 | DI.VRAD_ITS ---
PROCEDURE INFORMATION: Exam: CT Chest Without Contrast; Diagnostic Exam date and time: 08/24/2021 6:36 PM Age: 80 years old Clinical indication: Other: 2 weeks S/P pacemaker, ? wire placement TECHNIQUE: Imaging protocol: Diagnostic computed tomography of the chest without contrast. 3D rendering (Not supervised by radiologist): MIP and/or 3D reconstructed images were created by the technologist. COMPARISON: CT CHEST WO 05/01/2020 3:36 PM FINDINGS: Thyroid: Normal-appearing thyroid gland. Lungs: Minimal streaky atelectasis. No pulmonary consolidation. Pleural spaces: No pleural effusion or pneumothorax. 3 mm right upper lobe pulmonary nodule on image 219 of series 3, stable compared with the prior exam from May 01, 2020. 5 mm pulmonary nodule on the right on image 226 of series 3, stable compared with the prior exam. Heart: Normal-sized heart. Cardiac pacemaker implanted in the left anterior chest wall with leads extending into the right atrium and ventricle. Lymph nodes: No pathologically enlarged mediastinal or hilar lymph nodes. Vasculature: No thoracic aortic aneurysm. Diaphragm: 2.3 cm hiatal hernia. Liver: 4.0 cm x 4.3 cm bilocular hepatic cyst, image 462 of series 3. Liver only partially imaged. Diffuse fatty infiltration of the liver with a density measurement of 27 Hounsfield units. Gallbladder and bile ducts: Prior cholecystectomy with postop biliary prominence. Stomach and bowel: Small proximal duodenal diverticulum partially visualized. Bones/joints: Orthopedic compression plates and screws partially visualized transfixing old bilateral humeral fractures. Multiple old vertebral compression fracture deformities, also seen on the comparison exam from May 01, 2020. No acute fracture seen among the bones of the chest. Soft tissues: No gross soft tissue mass or fluid collection seen in the chest wall. IMPRESSION: 1. No active disease is seen in the chest. 2. Cardiac pacemaker implanted in the left anterior chest wall with leads in the right atrium and ventricle. 3. 2.3 cm hiatal hernia. Dictated and Authenticated by: Bharat Alvarez MD. Ordering:LAMBERT Liang MD
--- NOTE | 2021-08-24 20:30 | RT.EKG_ITS ---
APPROVED REPORT Exam: Resting ECG Reason for Exam: fatigue, pacemaker Patient Location: E HR:75 bpm ECG Measurements Heart Rate 75 AXIS KS 259 P 21 QRSd 139 QRS -71 QT 436 T 81 QTc 485 Conclusion Sinus rhythm...normal P axis, V-rate 60- 99 Atrial premature complex...SV complex w/ short R-R interval Prolonged KS interval...KS >220, V-rate 50- 90 Left ventricular hypertrophy...multiple LVH criteria ST elevation secondary to LVH...Multiple VCG criteria
[2021-08-24 21:15] LABS: Troponin I < 50 ng/L (<or=60)
== END 2021-08-24 21:39 | disposition home or self-care (01) ==
PROVIDERS: Emergency Provider Emergency Medicine; PCP Nurse Practitioner Family
DX: R53.83 Other fatigue (principal); Z95.0 Presence of cardiac pacemaker; R06.02 Shortness of breath; R07.9 Chest pain, unspecified
CPT/HCPCS: 36415; 71250; 80053; 82805; 87635; 93005; 99284; 83735; 83880; 84443; 84484; 85025; 93010

== ENCOUNTER 2021-12-14 15:51 | Outpatient (CLI) | payer MEDICARE, SELFPAY ==
[2021-12-14 18:42] LABS: Anion Gap 11.1 mmol/L (3-11); BUN 23 mg/dL (7-18); CO2 24.9 mmol/L (21.0-32.0); CREATININE 1.1 mg/dL (0.55-1.02); Calcium 8.9 mg/dL (8.5-10.1); Chloride 103 mmol/L (98-107); Glucose 147 mg/dL (74-106); Potassium 3.6 mmol/L (3.5-5.1); Sodium 139 mmol/L (136-145)
== END 2021-12-14 15:52 | disposition home or self-care (01) ==
PROVIDERS: PCP Nurse Practitioner Family; Visit Provider Internal Medicine Cardiovascular Disease
DX: R06.09 Other forms of dyspnea (principal)
CPT/HCPCS: 36415; 80048

== ENCOUNTER 2021-12-24 16:49 | Emergency (ER) | payer MEDICARE, SELFPAY ==
[2021-12-24] VITALS (46 sets, daily range): BP systolic 112–159; BP diastolic 47–93; PULSE 72–108; RESP 9–23; TEMP 36.5–37; O2SAT 93–98
--- NOTE | 2021-12-24 16:45 | RT.EKG_ITS ---
APPROVED REPORT Exam: Resting ECG Reason for Exam: CHEST PAIN Patient Location: E HR:93 bpm ECG Measurements Heart Rate 93 AXIS WA 159 P 42 QRSd 144 QRS -43 QT 380 T 19 QTc 472 Conclusion Sinus rhythm...normal P axis, V-rate 60- 99 RBBB and LAFB...QRSd >120mS, axis(-40,240)
--- NOTE | 2021-12-24 17:00 | DI.RAD_ITS ---
Exam(s) XR CHEST 2V PA LATERAL EXAM: XR CHEST 2V PA LATERAL CLINICAL HISTORY: epigastric pain. TECHNIQUE: 2D digital imaging was performed. COMPARISON: CR,XR XR PORTABLE CHEST AP from 07/29/2021 FINDINGS: 2 views: Bipolar left subclavian pacemaker now evident. Heart size is normal. The mediastinum is not widened. Lungs are clear. No infiltrates nor pleural effusions. Hardware in both upper humeri noted, as previously present. IMPRESSION: No acute pulmonary findings.Bipolar left subclavian pacemaker now evident. No pulmonary edema. DATA REPOSITORY: RADIATION DOSE DELIVERED:
--- NOTE | 2021-12-24 17:05 | W.ED.GENAD ---
Discharge Plan Disposition Patient Disposition: HOME Condition: Stable Discharge Details Clinical Impression: Acute epigastric pain Primary Care Provider: Kodi Montez ED Provider: Hermelindo Moreno Home Meds and New Rx's Prescriptions: No Action valsartan 80 mg tablet 80 mg PO DAILY albuterol sulfate [ProAir HFA] 90 mcg/actuation HFA aerosol inhaler 2 puff Inhalation QID PRN (Reason: asthma) Qty: 3 0RF Rx Instructions: J45.41 fluticasone propion-salmeterol [Advair Diskus] 250-50 mcg/dose blister with device 1 ea Inhalation DAILY PRN (Reason: SOB) Qty: 60 0RF Rx Instructions: Dx. asthma cefpodoxime 200 mg tablet 200 mg PO Q12H Qty: 14 0RF Rx Instructions: must administer with a meal/food azithromycin 250 mg tablet See Rx Instructions PO .COMPLEX Qty: 6 0RF Rx Instructions: For 250 mg dose pack: take 500 mg today (day 1), then 250 mg for 4 days (days 2-5) PO benzonatate 100 mg capsule 100 mg PO TID PRN (Reason: cough) Qty: 14 0RF esomeprazole magnesium [Nexium] 40 mg capsule,delayed release(DR/EC) 20 mg PO BID Qty: 180 4RF cholecalciferol (vitamin D3) 2,000 UNIT tablet 2,000 unit PO DAILY fluoxetine [Prozac] 20 mg capsule 20 mg PO DAILY Qty: 90 4RF amlodipine 5 mg tablet 5 mg PO DAILY Qty: 90 4RF montelukast [Singulair] 10 mg tablet 10 mg PO DAILY Qty: 90 3RF simvastatin [Zocor] 40 mg tablet 40 mg PO DAILY Qty: 90 3RF fluticasone propionate [Flonase] 16 GM spray,suspension 2 spry NS DAILY PRN hydrochlorothiazide 25 mg tablet Label Comments: TAKE 1 TABLET BY MOUTH DAILY Discharge Instructions Instructions: Chest Pain (ED) Additional Instructions: At this time your work-up is reassuring. Your repeat heart markers and EKG are stable. Please take the the Pepto-Bismol at home and your Nexium. Follow-up closely with your primary care provider. If you notice any worsening of your symptoms, or any new symptoms such as vomiting, diarrhea, fever, chills, shortness of breath, chest pain, numbness, weakness, or fainting , please return immediately to the emergency department for reevaluation. Please follow up with your primary care provider as soon as possible for reassessment and reevaluation. As always, it was a pleasure participating in your medical care today. Referrals: Kodi Montez NP [Primary Care Provider] - Medical Decision Making <Chris Alves MD - Last Filed: 12/24/21 19:46> 81-year-old female presents from home. She states that she had stuttering epigastric burning discomfort and nausea yesterday. She had an episode of loose stool today and then developed epigastric burning discomfort that radiates at times to her back. No shortness of breath. She has had no upper chest pain. She recently finished a course of cefpodoxime for a URI and finished the antibiotic 2 days ago. She arrives ER alert and interactive, pleasant and in no acute distress. Note of slight hypertension of 159/71, otherwise reassuring vital signs. Patient states her hypertension has been closely followed by her clinician at [facility]. Most consistent with gastritis, must exclude other foregut pathology including pancreatitis. Would also consider acute coronary syndrome given the patient's history. Patient had IV access established, screening labs obtained she is referred for chest x-ray, CT scan of the abdomen and pelvis. Chest x-ray with no evidence of acute abnormality. CT images of the abdomen and pelvis show no evidence of acute inflammation, obstruction. There is note of hepatic steatosis. Laboratories are reassuring including CBC and chemistries. Note of negative lipase. Normal troponin x1. Patient reassured. Given additional antacid. We will sign the patient out to Dr. Moreno pending repeat troponin. If negative, anticipate discharge to home Lab Data Lab results reviewed: Yes I reviewed the patient's lab results. Labs: Laboratory Results - last 24 hr 12/24/21 12/24/21 17:44 17:44 WBC 9.25 RBC 4.73 Hgb 14.4 Hct 41.7 MCV 88 MCH 30.4 MCHC 34.5 RDW 12.3 Plt Count 204 MPV 10.3 Immature Gran % 1.2 Neutrophils % 60.8 Lymphocytes % 25.5 Monocytes % 9.5 Eosinophils % 2.4 Basophils % 0.6 Nucleated RBC % 0.0 Absolute Neutrophils 5.62 Absolute Lymphocytes 2.36 Absolute Monocytes 0.88 H Absolute Eosinophils 0.22 Absolute Basophils 0.06 Sodium 141 Potassium 3.4 L Chloride 103 Carbon Dioxide 26.5 Anion Gap 11.5 H BUN 24 H Creatinine 1.0 Est GFR (CKD-EPI 2020) 56.95 Glucose 99 Calcium 9.2 Magnesium 2.0 Total Bilirubin 1.2 H AST 19 ALT 32 Alkaline Phosphatase 59 Troponin I < 50 Total Protein 7.4 Albumin 4.0 Lipase 147 <Hermelindo Moreno, DO - Last Filed: 12/24/21 21:10> 81-year-old female presents from home. She states that she had stuttering epigastric burning discomfort and nausea yesterday. She had an episode of loose stool today and then developed epigastric burning discomfort that radiates at times to her back. No shortness of breath. She has had no upper chest pain. She recently finished a course of cefpodoxime for a URI and finished the antibiotic 2 days ago. She arrives ER alert and interactive, pleasant and in no acute distress. Note of slight hypertension of 159/71, otherwise reassuring vital signs. Patient states her hypertension has been closely followed by her clinician at [facility]. Most consistent with gastritis, must exclude other foregut pathology including pancreatitis. Would also consider acute coronary syndrome given the patient's history. Patient had IV access established, screening labs obtained she is referred for chest x-ray, CT scan of the abdomen and pelvis. Chest x-ray with no evidence of acute abnormality. CT images of the abdomen and pelvis show no evidence of acute inflammation, obstruction. There is note of hepatic steatosis. Laboratories are reassuring including CBC and chemistries. Note of negative lipase. Normal troponin x1. Patient reassured. Given additional antacid. We will sign the patient out to Dr. Moreno pending repeat troponin. If negative, anticipate discharge to home Dr. Moreno's documentation Patient was signed out to me by my colleague Dr. Chris Alves. Please refer to his HPI, Assessment and plan. At time of signout we are pending repeat troponin. Repeat EKG was ordered as well by myself. EKG remained stable, troponin is negative. Patient has no more arm neck shoulder or significant chest pain. She feels better. She does have mild burning sensation when she sits up. Patient otherwise looks very well. At this time symptoms inconsistent with STEMI. Through shared decision-making process the patient feels good and would like to go home. Patient will be discharged. Will recommend close follow-up with her primary care provider. Recommend continued Pepto-Bismol as needed and Tylenol and her Nexium. Discussed red flags for which to return. I have extensively reviewed the treatment plan and discharge instructions with the patient. I have addressed all patient concerns at this time. The patient was made aware of what symptoms to monitor for that would warrant a return to the emergency department. Discussed the plan with the patient, they demonstrate verbal understanding and agreement with our assessment and plan at this time. The documentation in this chart was dictated using [employer] dictation software. Please excuse any dictation errors. HPI <Chris Alves MD - Last Filed: 12/24/21 19:46> General Mode of arrival: ambulatory. Date/Time Provider Initiated Documentation: 12/24/21 16:50. Limitations to Documentation: no limitations. Information obtained by: patient. History of Present Illness 81 year old F presents to the emergency department with the chief complaint of Epigastric burning, described as moderate, Quality is described as dull and constant, and is localized to the chest and abdomen. Patient reports no radiation. Patient started experiencing this hour(s) and it has been intermittent. Eating worsens symptoms . Patient notes denies fever/chills, shortness of breath and syncope. Patient did receive the following treatments prior to arrival, other (Nexium) Related Data Home Medications Medication Instructions Recorded Confirmed fluticasone propionate 50 2 spry NS DAILY PRN 06/07/13 12/16/21 mcg/actuation nasal spray,suspension (Flonase) cholecalciferol (vitamin D3) 50 2,000 unit PO DAILY 07/18/17 12/16/21 mcg (2,000 unit) tablet esomeprazole magnesium 40 mg 20 mg PO BID #180 tab-caps 07/31/19 12/16/21 capsule,delayed release (Nexium) fluoxetine 20 mg capsule (Prozac) 20 mg PO DAILY #90 caps 03/10/21 12/24/21 amlodipine 5 mg tablet 5 mg PO DAILY #90 tabs 06/08/21 12/24/21 montelukast 10 mg tablet 10 mg PO DAILY #90 tabs 08/31/21 12/24/21 (Singulair) simvastatin 40 mg tablet (Zocor) 40 mg PO DAILY #90 tab-caps 08/31/21 12/24/21 albuterol sulfate 90 mcg/actuation 2 puff inhalation QID PRN asthma 12/16/21 12/24/21 aerosol inhaler (ProAir HFA) #3 ea azithromycin 250 mg tablet See Rx Instructions PO .COMPLEX #6 12/16/21 12/24/21 tabs benzonatate 100 mg capsule 100 mg PO TID PRN cough #14 caps 12/16/21 12/24/21 cefpodoxime 200 mg tablet 200 mg PO Q12H #14 tabs 12/16/21 12/16/21 fluticasone 250 mcg-salmeterol 50 1 ea inhalation DAILY PRN SOB #60 12/16/21 12/16/21 mcg/dose blistr powdr for ea inhalation (Advair Diskus) valsartan 80 mg tablet 80 mg PO DAILY 12/16/21 12/24/21 hydrochlorothiazide 25 mg tablet tab 12/24/21 12/24/21 Previous Rx's Medication Instructions Recorded esomeprazole magnesium 40 mg 20 mg PO BID #180 tab-caps 07/31/19 capsule,delayed release (Nexium) fluoxetine 20 mg capsule (Prozac) 20 mg PO DAILY #90 caps 03/10/21 amlodipine 5 mg tablet 5 mg PO DAILY #90 tabs 06/08/21 montelukast 10 mg tablet 10 mg PO DAILY #90 tabs 08/31/21 (Singulair) simvastatin 40 mg tablet (Zocor) 40 mg PO DAILY #90 tab-caps 08/31/21 albuterol sulfate 90 mcg/actuation 2 puff inhalation QID PRN asthma 12/16/21 aerosol inhaler (ProAir HFA) #3 ea azithromycin 250 mg tablet See Rx Instructions PO .COMPLEX #6 12/16/21 tabs benzonatate 100 mg capsule 100 mg PO TID PRN cough #14 caps 12/16/21 cefpodoxime 200 mg tablet 200 mg PO Q12H #14 tabs 12/16/21 fluticasone 250 mcg-salmeterol 50 1 ea inhalation DAILY PRN SOB #60 12/16/21 mcg/dose blistr powdr for ea inhalation (Advair Diskus) Allergies Allergy/AdvReac Type Severity Reaction Status Date / Time adhesive Allergy Severe SKIN RASH Verified 12/16/21 14:53 Sulfa (Sulfonamide Allergy Intermediate ITCHING Verified 12/16/21 14:53 Antibiotics) losartan Allergy Unknown SWELLING, Verified 12/16/21 14:53 ITCHING hydrocodone AdvReac Itching Verified 12/16/21 14:53 with high doses General Stated Complaint: Chest Pain CLAUDIA: 2 Review of Systems <Chris Alves MD - Last Filed: 12/24/21 19:46> Narrative: Denies shortness of breath. No leg pain or swelling. No fall or injury. Not currently taking daily antacids. Recently on antibiotics including cefpodoxime which she finished 2 days ago. No persistent cough. 8 systems were reviewed PFS <Chris Alves MD - Last Filed: 12/24/21 19:46> All Active Problems Acute epigastric pain (Acute) Liver cyst (Acute) Urinary tract infection (Acute) COVID-19 (Acute ~03/26/21) Left lumbar radiculopathy (Acute) Fracture, pelvis closed (Chronic) Hiatal hernia (Acute) Polyp of colon (Chronic) Asthma (Chronic) Interstitial lung disease (Chronic) a. 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 well controlled on SSRI PUD (peptic ulcer disease) (Chronic) Overweight (Chronic) Fibrocystic breast (Chronic) H/O surgical procedure (Chronic) a. Bilateral shoulder surgeries b. Right medial meniscus repair c. Rahman's cyst surgery d. Cataract surgery x 2 e. S/p Cholecystectomy f. S/p hysterectomy for benign reasons g. s/p breast biopsy h. S/p intraocular lens implants Hip bursitis, left (Chronic) Status post arthroscopy of right knee (Chronic) Status post partial lateral meniscectomy right knee with associated mild to moderate focal arthritis. Follow-up in approximately 2 weeks for use of dural Jac as a [place] supplement prior to her trip to [facility] [place]. Medical History (Updated 12/24/21 @ 21:01 by Hermelindo Moreno DO) Acute bacterial bronchitis Arthritis of left knee s/p total knee Asthma Gastroparesis GERD (gastroesophageal reflux disease) H/O: pneumonia Headache Hypercholesterolemia Osteoarthritis Peptic ulcer Unilateral inguinal hernia Surgical History Arthroscopy, Shoulder LEFT Biopsy of breast (~2005) LEFT Cholecystectomy Extraction of cataract 06/11/13; RIGHT 06/26/13; LEFT FX ARM (02/15/14) PLATE AND SCREWS History of cataract removal with insertion of prosthetic lens Hysterectomy, Laproscopic 1 ovary remains Status post arthroscopy of shoulder Status post breast biopsy Status post cholecystectomy Status post laparoscopic hysterectomy Family History Mother Diabetes Essential hypertension Depression Heart disease Hyperlipidemia Father , WW II at age 24. No problems noted. Brother Diabetes Essential hypertension Hyperlipidemia Neoplasm MELANOMA Grandfather Diabetes Essential hypertension Grandfather Essential hypertension Heart disease Hyperlipidemia Grandmother Essential hypertension Neoplasm Stroke Grandmother Diabetes Blood disease Neoplasm COLON FAMILY HISTORY Myocardial infarction Son Substance abuse Depression Hyperlipidemia Daughter Diabetes Depression Hyperlipidemia Asthma Social History Smoking/Tobacco Use Status: Never Smoking risk assessment performed?: Yes Alcohol Intake: current Alcohol Intake frequency: a few times a week Alcohol type: hard liquor Drug use: Never Substance use type: does not use Caregiver/Support person: No Household members: none Housing: house Pets and animals: No What is your relationship status?: How often do you talk on the phone with friends or family?: three or more times per week Panel score (0-1 are the most socially isolated patients): 1 Seatbelt use: always 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 Pleasant, well groomed, interactive. HEAD: Normocephalic, atraumatic ENT: Mucous membranes moist, oropharynx unremarkable, External ear exam unremarkable EYES: PERRL, EOMI NECK: Full ROM, no DANIEL, no menigismus CHEST/RESP: Nontender, clear to auscultation bilateral, no wheeze/rhonchi/rales CARDIOVASCULAR: RRR, no murmur, rub rosmery. 2+ Rad pulse bilateral ABDOMEN: Soft, tender in the epigastrium without rebound or guard, no mass. +Bowel sounds EXT: Full ROM, no edema, no rash Neuro: Grossly normal neurologic exam, conversant, interactive. Psych: Speech fluent, thoughts congruent, affect normal Course <Chris Alves MD - Last Filed: 12/24/21 19:46> Vital Signs Vital signs: Vital Signs Temperature 37 C 12/24/21 16:53 Pulse 90 12/24/21 16:53 Respiratory Rate 18 12/24/21 16:53 Blood Pressure 159/71 H 12/24/21 16:53 Pulse Oximetry 97 12/24/21 16:53 Temperature 37 C 12/24/21 16:53 Temperature Source Temporal Artery Scan 12/24/21 16:53 Pulse 90 12/24/21 16:53 Respiratory Rate 18 12/24/21 16:53 Respiratory Effort Non-Labored 12/24/21 17:01 Blood Pressure 159/71 H 12/24/21 16:53 Blood Pressure Position Supine 12/24/21 16:53 Pulse Oximetry 97 12/24/21 16:53 Oxygen Delivery Method Room Air 12/24/21 16:53 Oxygen Flow Rate 0 12/24/21 16:53 Pain Level 8 12/24/21 16:53 Sign Out <Chris Alves MD - Last Filed: 12/24/21 19:46> Sign Out Data: Sign Out Comment: Epigastric pain. Follow-up repeat troponin. Consider antacid for home Last updated by Chris Alves MD at 12/24/21 19:40
[2021-12-24] MEDS: Pantoprazole 40 MG VIAL IVP (17:21)
[2021-12-24] MEDS: Normal Saline Flush 10 ML SYR IVP ×2 (17:25→18:27)
[2021-12-24 17:49] LABS: Abs Immature Grans 0.11 10^3/uL (0.0-0.06); Absolute Basophil Count 0.06 10^3/uL (0.0-0.2); Absolute Eosinophil Count 0.22 10^3/uL (0.0-0.7); Absolute Lymphocyte Count 2.36 10^3/uL (1.2-3.4); Absolute Monocyte Count 0.88 10^3/uL (0.1-0.8); Absolute Neutrophil Count 5.62 10^3/uL (1.2-6.7); Basophils % 0.6; Eosinophils % 2.4; HCT 41.7 % (36.0-46.0); HGB 14.4 g/dL (11.2-15.7); Immature Grans % 1.2; Lymphocytes % 25.5; MCH 30.4 pg (27.0-33.0); MCHC 34.5 % (32.0-36.0); MCV 88 fL (80-95); MPV 10.3 fL (8.0-11.0); Monocytes % 9.5; Neutrophils % 60.8; Platelet Count 204 10^3/uL (130-400); RBC 4.73 10^6/uL (3.93-5.22); RDW 12.3 % (11.7-14.6); RDW-SD 40.2 fL; WBC 9.25 10^3/uL (4.4-10.8)
--- NOTE | 2021-12-24 18:00 | DI.CT_ITS ---
Exam(s) CT ABDOMEN PELVIS W EXAM: CT ABDOMEN PELVIS W CLINICAL HISTORY: epigasstric pain. TECHNIQUE: Imaging Protocol: Axial computed tomography images with coronal and sagittal reformatted images were created and reviewed CONTRAST MATERIAL: Intravenous: Omnipaque 100cc Oral: None FINDINGS: VISUALIZED LUNG BASES: No nodules nor pleural effusions evident. ABDOMEN: There is no ascites. LIVER: Again noted is a prominent benign-appearing cyst in the left hepatic lobe, unchanged in size a nd configuration. This measures approximately 4.4 cm wide by 3.5 cm maximum AP. No new focal hepati c lesions. GALLBLADDER/BILIARY: Gallbladder is again noted to be surgically absent. CBD is not dilated. PANCREAS: No evidence of pancreatic mass nor dilatation of the pancreatic duct. SPLEEN: Spleen is not enlarged. No obvious intrasplenic lesions. Splenic and portal veins are paten t. ADRENALS: There are no significant adrenal masses. KIDNEYS:No cysts evident. No solid renal masses. No calculi nor hydronephrosis.. ABDOMINAL AORTA: Abdominal aorta is not enlarged. LYMPH NODES:There is no retroperitoneal nor paraaortic adenopathy. ABDOMINAL WALL: No evidence of significant anterior abdominal wall nor inguinal hernia. GI: There is no evidence of bowel obstruction, free air, nor abscess. PELVIS: GI: No evidence of appendicitis.No evidence of sigmoid diverticulitis. LYMPH NODES: There is no intrapelvic nor inguinal adenopathy. REPRODUCTIVE: Uterus is surgically absent. No abnormal adnexal findings. No free fluid in the pelvi s. URINARY BLADDER: No calculi nor obvious masses evident OSSEOUS: Healed fracture in the inferior pubic ramus right side. No acute fractures evident. No lyt ic osseous lesions. There is multilevel disc space narrowing in the lumbosacral spine. Also anterol isthesis of L4 upon L5. This is related to unilateral pars defect at this level. There is also inde ntation of the superior endplate of L3 vertebral body, previously present in 2018. IMPRESSION: 1.. There has been previous hysterectomy and cholecystectomy. No bowel obstruction. No free air. No abscess. 2. Stable single cyst in the left hepatic lobe, unchanged from 2018. 3. No new significant findings. RADIATION DOSE DELIVERED: 625.19mGy.cm Total DLP DATA REPOSITORY: All CT scans at this facility are submitted to the National Radiology Data Registry (NRDR) Dose Index Registry (DIR) with the [employer] (ACR). RADIATION OPTIMIZATION: All CT scans at this facility use at least one of these dose optimization te chniques: automated exposure control; mA and/or kV adjustment per patient size (includes targeted exa ms where dose is matched to clinical indication); or iterative reconstruction.
[2021-12-24 18:07] LABS: ALT 32 U/L (14-59); AST 19 U/L (15-37); Alkaline Phosphatase 59 U/L (46-116); Anion Gap 11.5 mmol/L (3-11); BUN 24 mg/dL (7-18); Bilirubin, Total 1.2 mg/dL (0.2-1.0); CO2 26.5 mmol/L (21.0-32.0); Calcium 9.2 mg/dL (8.5-10.1); Chloride 103 mmol/L (98-107); Estimated GFR 56.95 (mL/min/1.73m2); Glucose 99 mg/dL (74-106); Lipase 147 U/L (73-393); Potassium 3.4 mmol/L (3.5-5.1); Sodium 141 mmol/L (136-145); Total Protein 7.4 g/dL (6.4-8.2); Troponin I < 50 ng/L (<or=60)
[2021-12-24] MEDS: Omnipaque 350 MG/ML 100 ML BTL IJ (18:20)
--- NOTE | 2021-12-24 18:48 | DI.VRAD_ITS ---
PROCEDURE INFORMATION: Exam: CT Abdomen And Pelvis With Contrast Exam date and time: 12/24/2021 6:26 PM Age: 81 years old Clinical indication: Epigastric pain TECHNIQUE: Imaging protocol: Computed tomography of the abdomen and pelvis with contrast. Radiation optimization: All CT scans at this facility use at least one of these dose optimization techniques: automated exposure control; mA and/or kV adjustment per patient size (includes targeted exams where dose is matched to clinical indication); or iterative reconstruction. Contrast material: OMNIPAQUE 350; Contrast volume: 100 ml; Contrast route: INTRAVENOUS (IV); COMPARISON: CT Private^ROUTINE ABDOMEN PELVIS WITH CONTRAST (Adult) 12/14/2017 7:39 AM FINDINGS: Liver: There is hepatic steatosis noted. A 4.5 cm cyst again noted in the left hepatic lobe, stable in size. Gallbladder and bile ducts: The patient is status post cholecystectomy. Pancreas: No ductal dilation. Spleen: No splenomegaly. Adrenal glands: No mass. Kidneys and ureters: No hydronephrosis. Stomach and bowel: No obstruction. No mucosal thickening. Appendix: No evidence of appendicitis. Intraperitoneal space: No free air. No significant fluid collection. Vasculature: No abdominal aortic aneurysm. Lymph nodes: No enlarged lymph nodes. Urinary bladder: Unremarkable as visualized. Reproductive: There has been a hysterectomy. Bones/joints: No acute fracture. Degenerative changes are noted in the lumbar spine. A focus of calcification again noted within the lower spinal canal. Soft tissues: Unremarkable. IMPRESSION: 1. Hepatic steatosis. 2. No evidence of bowel obstruction or acute bowel inflammation. Dictated and Authenticated by: Georgina Orellana MD. Ordering:TAM Perez MD
--- NOTE | 2021-12-24 18:50 | DI.VRAD_ITS ---
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 Center chest pain radiating to the back TECHNIQUE: Imaging protocol: Radiologic exam of the chest. Views: 2 views. COMPARISON: CT CHEST WO 08/24/2021 6:36 PM FINDINGS: Tubes, catheters and devices: A left-sided defibrillator device is noted in place. Lungs: No evidence of significant consolidation. Pleural spaces: No pleural effusion. No pneumothorax. Heart/Mediastinum: No cardiomegaly. Bones/joints: There is evidence of bilateral humerus internal fixation. IMPRESSION: No evidence of significant pulmonary abnormality. Dictated and Authenticated by: Georgina Orellana MD. Ordering:TAM Perez MD
[2021-12-24] MEDS: Famotidine 20 MG TAB 40 MG PO (19:52)
[2021-12-24 20:25] LABS: Troponin I < 50 ng/L (<or=60)
--- NOTE | 2021-12-24 20:45 | RT.EKG_ITS ---
APPROVED REPORT Exam: Resting ECG Reason for Exam: cchest pain Patient Location: E HR:76 bpm ECG Measurements Heart Rate 76 AXIS AR 188 P 37 QRSd 151 QRS 2 QT 418 T 10 QTc 470 Conclusion Sinus rhythm...normal P axis, V-rate 60- 99 Right bundle branch block...QRSd>120, terminal axis(90,270) Physician: no stemi, unchanged
== END 2021-12-24 21:10 | disposition home or self-care (01) ==
PROVIDERS: Emergency Medicine; Emergency Provider Student in an Organized Health Care Education/Training Program; PCP Nurse Practitioner Family
DX: R10.13 Epigastric pain (principal); R11.0 Nausea; I10 Essential (primary) hypertension; R07.9 Chest pain, unspecified
CPT/HCPCS: 80053; 83690; 93005; 96374; 99285; 71046; 74177; 83735; 84484; 85025; 93010; 99284; J3490

== ENCOUNTER 2022-03-15 14:41 | Emergency (ER) | payer MEDICARE, SELFPAY ==
[2022-03-15] VITALS (25 sets, daily range): BP systolic 121–153; BP diastolic 65–82; PULSE 70–90; RESP 10–20; TEMP 36.3; O2SAT 93–97
--- NOTE | 2022-03-15 14:30 | RT.EKG_ITS ---
APPROVED REPORT Exam: Resting ECG Reason for Exam: WEAKNESS Patient Location: E HR:86 bpm ECG Measurements Heart Rate 86 AXIS CA 182 P 41 QRSd 143 QRS 6 QT 377 T 31 QTc 451 Conclusion Sinus rhythm...normal P axis, V-rate 60- 99 Right bundle branch block...QRSd>120, terminal axis(90,270)
--- NOTE | 2022-03-15 15:00 | DI.RAD_ITS ---
Exam(s) XR CHEST 2V PA LATERAL EXAM: XR CHEST 2V PA LATERAL CLINICAL HISTORY: syncope TECHNIQUE: 2D digital imaging was performed. COMPARISON: No exams were available for comparison FINDINGS: HEART: Normal size. Pacemaker Aorta: Not dilated. PULMONARY VASCULATURE: Normal. LUNGS: Clear. PLEURAL SPACE: No pleural effusion or pneumothorax. BONE:Hardware both proximal humeri. Stable mild thoracic compression fractures. Surgical clips right upper quadrant IMPRESSION: No acute abnormality. DATA REPOSITORY: RADIATION DOSE DELIVERED:
--- NOTE | 2022-03-15 15:04 | ED.GENADUL_ITS ---
Discharge Plan Disposition Patient Disposition: Home Condition: Stable Discharge Details Clinical Impression: Urinary tract infection, Acute left flank pain Primary Care Provider: Kodi Montez ED Provider: Garth Vines Home Meds and New Rx's Prescriptions: New levofloxacin 750 mg tablet 750 mg PO DAILY Qty: 5 0RF Continued valsartan 80 mg tablet 80 mg PO DAILY albuterol sulfate [ProAir HFA] 90 mcg/actuation HFA aerosol inhaler 2 puff Inhalation QID PRN (Reason: asthma) Qty: 3 0RF Rx Instructions: J45.41 esomeprazole magnesium [Nexium] 40 mg capsule,delayed release(DR/EC) 20 mg PO BID Qty: 180 4RF hydrochlorothiazide 25 mg tablet 25 mg PO DAILY Qty: 90 3RF cholecalciferol (vitamin D3) 2,000 UNIT tablet 2,000 unit PO DAILY fluoxetine [Prozac] 20 mg capsule 20 mg PO DAILY Qty: 90 4RF montelukast [Singulair] 10 mg tablet 10 mg PO DAILY Qty: 90 3RF simvastatin [Zocor] 40 mg tablet 40 mg PO DAILY Qty: 90 3RF fluticasone propionate [Flonase] 16 GM spray,suspension 2 spry NS DAILY PRN Discontinued nitrofurantoin monohyd/m-cryst [Macrobid] 100 mg capsule 100 mg PO BID Qty: 10 0RF Rx Instructions: must administer with a meal/food Discharge Instructions Instructions: Urinary Tract Infection in Women (ED) Additional Instructions: your blood work did not show concerning findings at this time follow up with your primary care provider within 1 week if you feel more ill, have severe worsening pain or persistent vomiting return to the emergency department Medical Decision Making 81 yo female with hx of hypertension who was taken off amlodipine last week by her pcp's office, asthma, gerd, who comes in with several months of feeling lightheaded and as if her BP is too low. She denies chest pain, dyspnea, fevers, headaches, chills, falls. She was started on macrobid for uti symptoms last week and has improved. She can't think of anything that makes her symptoms better or worse. She arrives stable in sinus rhythm speaking clearly, caox4. She has clear lungs, soft nontender abdomen, no leg swelling, no focal motor or sensation deficits, CN II-XII intact. She denies feeling dizzy just that she is lightheaded. Unclear etiology for her symptoms given she is having the symptoms with normal vitals so doubt hypotension as the cause. Will check cbc, cmp, troponin and reassess. Her NIH is 0 and she has a reassuring HINTS exam so doubt cva. blood work unremarkable, ua consistent with continued uti, ct done to rule out infected stone and was negative. delta troponin negative. She feels better, is ambulating on her own without assistance. Will start her on levofloxacin, advised to f/u with pcp and return precautions given Differential Diagnosis Differential Diagnosis: anemia, electrolyte abnormality, uti Medical Records Medical records reviewed: Yes I reviewed the patient's medical records. Imaging Data Radiologic Study: Attestation: I personally reviewed and interpreted this imaging study as follows: Imaging: CT Scan Radiologist's impression: negative for acute findings Lab Data Lab results reviewed: Yes I reviewed the patient's lab results. ECG Data Attestation: I personally reviewed and interpreted this ECG (s) as follows: Prior ECG tracings: available for review Interpretation: sinus rhythm, rate of 86, rbbb, pr 182, no acute st t wave ischemic findings HPI General Mode of arrival: EMS . Date/Time Provider Initiated Documentation: 03/15/22 14:53 . Limitations to Documentation: no limitations . Information obtained by: patient . History of Present Illness 81 year old F presents to the emergency department with the chief complaint of lightheaded, described as moderate, Patient started experiencing this month(s) (4) and it has been intermittent. No relieving factors improve symptom(s), No exacerbating factors reported . Patient notes denies chest pain and fever/chills. Patient did receive the following treatments prior to arrival, none Related Data Home Medications Medication Instructions Recorded Confirmed fluticasone propionate 50 2 spry NS DAILY PRN 06/07/13 03/15/22 mcg/actuation nasal spray,suspension (Flonase) cholecalciferol (vitamin D3) 50 2,000 unit PO DAILY 07/18/17 03/15/22 mcg (2,000 unit) tablet esomeprazole magnesium 40 mg 20 mg PO BID #180 tab-caps 07/31/19 03/15/22 capsule,delayed release (Nexium) fluoxetine 20 mg capsule (Prozac) 20 mg PO DAILY #90 caps 03/10/21 03/15/22 montelukast 10 mg tablet 10 mg PO DAILY #90 tabs 08/31/21 03/15/22 (Singulair) simvastatin 40 mg tablet (Zocor) 40 mg PO DAILY #90 tab-caps 08/31/21 03/15/22 albuterol sulfate 90 mcg/actuation 2 puff inhalation QID PRN asthma 12/16/21 03/15/22 aerosol inhaler (ProAir HFA) #3 ea valsartan 80 mg tablet 80 mg PO DAILY 12/16/21 03/15/22 hydrochlorothiazide 25 mg tablet 25 mg PO DAILY #90 tabs 03/10/22 03/15/22 levofloxacin 750 mg tablet 750 mg PO DAILY #5 tabs 03/15/22 Previous Rx's Medication Instructions Recorded esomeprazole magnesium 40 mg 20 mg PO BID #180 tab-caps 07/31/19 capsule,delayed release (Nexium) fluoxetine 20 mg capsule (Prozac) 20 mg PO DAILY #90 caps 03/10/21 montelukast 10 mg tablet 10 mg PO DAILY #90 tabs 08/31/21 (Singulair) simvastatin 40 mg tablet (Zocor) 40 mg PO DAILY #90 tab-caps 08/31/21 albuterol sulfate 90 mcg/actuation 2 puff inhalation QID PRN asthma 12/16/21 aerosol inhaler (ProAir HFA) #3 ea hydrochlorothiazide 25 mg tablet 25 mg PO DAILY #90 tabs 03/10/22 levofloxacin 750 mg tablet 750 mg PO DAILY #5 tabs 03/15/22 Allergies Allergy/AdvReac Type Severity Reaction Status Date / Time adhesive Allergy Severe SKIN RASH Verified 03/15/22 14:47 Sulfa (Sulfonamide Allergy Intermediate ITCHING Verified 03/15/22 14:47 Antibiotics) losartan Allergy Unknown SWELLING, Verified 03/15/22 14:47 ITCHING hydrocodone AdvReac Itching Verified 03/15/22 14:47 with high doses General Stated Complaint: Dizzy/Sync CLAUDIA: 3 Review of Systems All systems reviewed & are unremarkable except as noted in HPI and below Constitutional Constitutional: Denies chills, Denies fever(s) and Denies weakness Eyes Eyes: Denies loss of vision ENT Ears, Nose, Mouth, and Throat: Denies change in voice Cardiovascular Cardiovascular: Denies chest pain and Denies dyspnea Respiratory Respiratory: Denies cough and Denies dyspnea Gastrointestinal Gastrointestinal: Denies abdominal pain, Denies nausea and Denies vomiting Musculoskeletal Musculoskeletal: Denies joint swelling Neurologic Neurologic: Denies loss of vision and Denies weakness PFSH All Active Problems Urinary tract infection (Acute) Acute left flank pain (Acute) Liver cyst (Acute) Urinary tract infection (Acute) COVID-19 (Acute ~03/26/21) Left lumbar radiculopathy (Acute) Fracture, pelvis closed (Chronic) Hiatal hernia (Acute) Polyp of colon (Chronic) Asthma (Chronic) Interstitial lung disease (Chronic) a. 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 well controlled on SSRI PUD (peptic ulcer disease) (Chronic) Overweight (Chronic) Fibrocystic breast (Chronic) H/O surgical procedure (Chronic) a. Bilateral shoulder surgeries b. Right medial meniscus repair c. Rahman's cyst surgery d. Cataract surgery x 2 e. S/p Cholecystectomy f. S/p hysterectomy for benign reasons g. s/p breast biopsy h. S/p intraocular lens implants Hip bursitis, left (Chronic) Status post arthroscopy of right knee (Chronic) Status post partial lateral meniscectomy right knee with associated mild to moderate focal arthritis. Follow-up in approximately 2 weeks for use of dural Jac as a [place] supplement prior to her trip to [facility] [place]. Medical History (Updated 03/15/22 @ 18:33 by Garth Vines MD) Acute bacterial bronchitis Arthritis of left knee s/p total knee Asthma Gastroparesis GERD (gastroesophageal reflux disease) H/O: pneumonia Headache Hypercholesterolemia Osteoarthritis Peptic ulcer Unilateral inguinal hernia Surgical History Arthroscopy, Shoulder LEFT Biopsy of breast (~2005) LEFT Cholecystectomy Extraction of cataract 06/11/13; RIGHT 06/26/13; LEFT FX ARM (02/15/14) PLATE AND SCREWS History of cataract removal with insertion of prosthetic lens Hysterectomy, Laproscopic 1 ovary remains Status post arthroscopy of shoulder Status post breast biopsy Status post cholecystectomy Status post laparoscopic hysterectomy Family History Mother Diabetes Essential hypertension Depression Heart disease Hyperlipidemia Father , WW II at age 24. No problems noted. Brother Diabetes Essential hypertension Hyperlipidemia Neoplasm MELANOMA Grandfather Diabetes Essential hypertension Grandfather Essential hypertension Heart disease Hyperlipidemia Grandmother Essential hypertension Neoplasm Stroke Grandmother Diabetes Blood disease Neoplasm COLON FAMILY HISTORY Myocardial infarction Son Substance abuse Depression Hyperlipidemia Daughter Diabetes Depression Hyperlipidemia Asthma Social History Smoking/Tobacco Use Status: Never Smoking risk assessment performed?: Yes Alcohol Intake: current Alcohol Intake frequency: 0-2 drinks per day Alcohol type: hard liquor Drug use: Never Substance use type: does not use Caregiver/Support person: No Household members: none Housing: house Pets and animals: No What is your relationship status?: How often do you talk on the phone with friends or family?: three or more times per week Panel score (0-1 are the most socially isolated patients): 1 Seatbelt use: always Drive intox or ride w/intox van cdl driver: No Do you feel safe at home: Yes Do you feel safe in your relationship?: Yes Exam Const General: no acute distress Orientation: alert HENMT Head: normal to inspection Ears: external ears normal General nose exam: external nose normal Mouth: moist mucous membranes Eyes General: appearance normal, both eyes and all related structures Neck Neck: normal visual inspection Resp Effort & Inspection: normal respiratory effort and able to speak in complete sentences Auscultation: clear to auscultation bilaterally Cardio Rate: regular rate Heart Sounds: no murmurs GI Palpation: soft and nontender Skin General skin exam: no rashes or lesions noted Neuro General: patient alert and patient oriented x3 Extrem General: normal to inspection Psych Mental Status: mental status grossly normal Course Vital Signs Vital signs: Vital Signs Pulse 90 03/15/22 14:41 Respiratory Rate 20 03/15/22 14:41 Blood Pressure 137/65 03/15/22 14:41 Pulse Oximetry 96 03/15/22 14:41 Pulse 90 03/15/22 14:41 Respiratory Rate 20 03/15/22 14:41 Blood Pressure 137/65 03/15/22 14:41 Blood Pressure Position Sitting 03/15/22 14:41 Pulse Oximetry 96 03/15/22 14:41 Oxygen Delivery Method Room Air 03/15/22 14:41 Oxygen Flow Rate 0 03/15/22 14:41
[2022-03-15 15:14] LABS: Abs Immature Grans 0.04 10^3/uL (0.0-0.06); Absolute Basophil Count 0.06 10^3/uL (0.0-0.2); Absolute Eosinophil Count 0.18 10^3/uL (0.0-0.7); Absolute Lymphocyte Count 1.79 10^3/uL (1.2-3.4); Absolute Monocyte Count 0.78 10^3/uL (0.1-0.8); Absolute Neutrophil Count 3.55 10^3/uL (1.2-6.7); Basophils % 0.9; Eosinophils % 2.8; HCT 41.8 % (36.0-46.0); HGB 14.2 g/dL (11.2-15.7); Immature Grans % 0.6; MCH 31.3 pg (27.0-33.0); MCV 92 fL (80-95); MPV 10.1 fL (8.0-11.0); Monocytes % 12.2; Neutrophils % 55.5; Platelet Count 204 10^3/uL (130-400); RBC 4.54 10^6/uL (3.93-5.22); RDW 12.5 % (11.7-14.6); RDW-SD 42.5 fL
[2022-03-15 15:32] LABS: ALT 34 U/L (14-59); AST 23 U/L (15-37); Albumin 4.1 g/dL (3.4-5.0); Alkaline Phosphatase 48 U/L (46-116); Anion Gap 5.9 mmol/L (3-11); BUN 20 mg/dL (7-18); Bilirubin, Total 1.4 mg/dL (0.2-1.0); CO2 31.1 mmol/L (21.0-32.0); Calcium 8.8 mg/dL (8.5-10.1); Chloride 104 mmol/L (98-107); Estimated GFR 56.95 (mL/min/1.73m2); Glucose 136 mg/dL (74-106); Potassium 3.9 mmol/L (3.5-5.1); Sodium 141 mmol/L (136-145); Total Protein 7.4 g/dL (6.4-8.2); Troponin I < 50 ng/L (<or=60)
[2022-03-15 15:38] LABS: Bilirubin Negative (Negative); Blood Trace-intact (Negative); Clarity Cloudy (Clear); Glucose Negative (Negative); Ketones Negative (Negative); Leukocyte Esterase Large (Negative); Nitrite Negative (Negative); Specific Gravity 1.015 (1.005-1.025); Urobilinogen 0.2 EU/dL (Up TO 0.2); pH 6.5 (5-8)
[2022-03-15 15:49] LABS: Bacteria Moderate HPF (Negative); C & S Indicated? Yes; Casts Negative LPF (Negative); Crystals Negative HPF (Negative); Epithelial Cells Few HPF (Negative); Mucus Negative (Negative); RBC 0-2 HPF (0-2); WBC >50 HPF (0-5)
--- NOTE | 2022-03-15 16:00 | DI.CT_ITS ---
Exam(s) CT RENAL COLIC WO EXAM: CT RENAL COLIC WO CLINICAL HISTORY: ?kidney stone. TECHNIQUE: Imaging Protocol: Axial computed tomography images with coronal and sagittal reformatted images were created and reviewed. CONTRAST MATERIAL: Noncontrast COMPARISON: CT CT ABDOMEN PELVIS W from 12/24/2021 FINDINGS: ABDOMEN: Lung Bases: Heart size normal. Pacemaker leads noted. Liver: Enlarged. moderate to severe hepatic steatosis. Stable cyst left lobe. No suspicious mass. Gallbladder and biliary tract: Status post cholecystectomy. No radiodense calculus or dilation. Pancreas: Normal density, no calcifications or inflammatory process. Spleen: Normal. Kidneys: Normal size, contour and axis. No radiodense stones or obstructive uropathy. No masses seen. Adrenal glands: No masses seen. Abdominal Aorta: Abdominal portion non-dilated. [id number] atherosclerotic changes. PELVIS: Bladder: Symmetric distention, no gross wall thickening. No evidence of stones.No visible mass. Bowel: No obstruction or bowel wall thickening. Mild diverticulosis. No evidence of diverticulitis. Normal quantity of stool. Reproductive: Status post hysterectomy. Peritoneal cavity: No ascites, collection or mesenteric inflammatory response. Bones: Old right pubic ramus fracture. Degenerative changes lumbar spine, greatest at L4-5 and L5-S1 . Stable minimal compression of the superior endplate of L3. Stable mild compression fracture of th e superior endplate T10.. IMPRESSION: No evidence of urinary tract calculi, hydronephrosis or other acute abnormality Findings called to Dr. Garth Vines emergency department provider. RADIATION DOSE DELIVERED: 794.37mGy.cm Total DLP DATA REPOSITORY: All CT scans at this facility are submitted to the National Radiology Data Registry (NRDR) Dose Index Registry (DIR) with the [employer] (ACR). RADIATION OPTIMIZATION: All CT scans at this facility use at least one of these dose optimization te chniques: automated exposure control; mA and/or kV adjustment per patient size (includes targeted exa ms where dose is matched to clinical indication); or iterative reconstruction.
[2022-03-15] MEDS: levoFLOXacin 750 MG/150 ML BAG 100 MG IVPB (16:07)
[2022-03-15] MEDS: Ketorolac 15 MG/ML VIAL IVP (16:07)
[2022-03-15] MEDS: Normal Saline 1,000 ML 1000 ML IV (16:07)
[2022-03-15] MEDS: ACETAMINOPHEN 1,000 MG/100 ML BTL 400 MG IVPB (17:27)
[2022-03-15 18:22] LABS: Troponin I < 50 ng/L (<or=60)
== END 2022-03-15 18:41 | disposition home or self-care (01) ==
PROVIDERS: Emergency Provider Emergency Medicine; PCP Nurse Practitioner Family
DX: N39.0 Urinary tract infection, site not specified (principal); I10 Essential (primary) hypertension; J45.909 Unspecified asthma, uncomplicated; Z79.51 Long term (current) use of inhaled steroids; Z86.16 Personal history of COVID-19
CPT/HCPCS: 36415; 80053; 87077; 93005; 96361; 96365; 96375; 99284; 71046; 74176; 81003; 81015; 83735; 84484; 85025; 87086; 87186; 93010; J0131; J1885; J1956

== ENCOUNTER 2022-03-22 01:39 | Outpatient (CLI) | payer MEDICARE, SELFPAY ==
--- NOTE | 2022-03-22 08:00 | DI.RAD_ITS ---
Exam(s) XR LUMBAR SPINE COMPLETE EXAM: XR LUMBAR SPINE COMPLETE CLINICAL HISTORY: low back pain,m54.9. TECHNIQUE: 2D digital imaging was performed of the lumbar spine. Five images were obtained. AP, la teral, right oblique, left oblique and L5-S1 spot views were obtained. COMPARISON: CR,XR XR LUMBAR SPINE COMPLETE from 09/30/[address] RENAL COLIC WO from 03/15/2022 FINDINGS: BONES: No fracture or destructive lesion. Vertebral bodies are unremarkable. Degenerative changes of the facets are seen at L5-S1. There is again seen a depression in the superior endplate of L3 which i s unchanged. DISKS: There is disc space narrowing at L4-5 and L5-S1 in addition to vacuum discs. ALIGNMENT: Lumbar spinal alignment is within normal limits. There is no spondylolysis. Grade 1 spond ylolisthesis of L4 on L5 is again seen. SOFT TISSUE: Surgical clips are again seen in the right upper quadrant of the abdomen. There is some high density material seen in the stomach. IMPRESSION: Stable degenerative changes in the lumbar spine. DATA REPOSITORY: RADIATION DOSE DELIVERED:
== END 2022-03-22 01:59 ==
LOC: DI 01:39
PROVIDERS: PCP Nurse Practitioner Family; Visit Provider Family Medicine
DX: M47.816 Spondylosis without myelopathy or radiculopathy, lumbar region (principal)
CPT/HCPCS: 72110

== ENCOUNTER 2022-03-25 03:21 | Outpatient (CLI) | payer MEDICARE, SELFPAY ==
--- NOTE | 2022-03-25 15:06 | DI.CT_ITS ---
Exam(s) CT LUMBAR SPINE WO EXAM: CT LUMBAR SPINE WO CLINICAL HISTORY: low back pain,lt lumbar radiculopathy,m54.16. TECHNIQUE: Imaging Protocol: Axial computed tomography images with coronal and sagittal reformatted images were created and reviewed COMPARISON: CT CT ABDOMEN PELVIS W from 12/24/[address] RENAL COLIC WO from 03/15/2022 FINDINGS: Bones: There are no acute fractures. Invagination the superior endplate of L3 is unchanged CT scan December 2021. Chronic disc space narrowing at L4-5 and L5-S1 also unchanged and anterolisthesis of L 4 upon L5 by approximately 7 millimeters is unchanged and related to pars defect on 1 side at this le phillip, this being the right side. INDIVIDUAL LEVELS: T12-L1:There is disc space narrowing at this level again noted.. No disc herniation or central canal stenosis. Mild degenerative changes in facet joints. Asymmetric facet orientation noted at this le phillip on developmental basis. No significant foraminal stenosis. L1-2: Normal disc height. No disc herniation. No central canal stenosis. No significant facet art hropathy. No obvious foraminal stenosis. L2-3: No disc space narrowing. Invagination of superior endplate of L3 again noted, not new. There is no disc herniation at this level but there is moderate central spinal canal stenosis which is rel ated to short AP dimensions of the pedicles. There is some degenerative change in the right facet darcie int. Left facet joint appears unremarkable. There is a 2 x 2 millimeter density in the posterior ep idural space immediately behind the thecal sac at this level noted. Questionable significance. L3-4: Normal disc height. No disc herniation but there is also moderate-severe central spinal canal stenosis at this level due to developmental short AP dimensions of the pedicles. There does not soha ear to be an obvious distinct focal disc herniation. There are mild degenerative changes in both fac et joints at this level. There is no significant foraminal stenosis evident. L4-5: This level exhibits chronic disc space narrowing and vacuum phenomenon within the disc space a s well as anterolisthesis of L4 upon L5 similar to abdominal CT scan of 12/24/2021. This is again no cheikh be related to unilateral pars defect at this level. There is typical pseudo herniation of the an nulus but without a distinct focal disc herniation. No prominent central canal stenosis. Lateral re cesses are carried forward and there is an element of mild impingement of the exiting nerve roots miguel ángel aterally at this level. L5-S1: Chronic disc space narrowing again noted at this level, similar to prior abdominal CT scan. No listhesis at this level evident. Mild central canal stenosis. No obvious disc herniation. There is an element of bilateral vertical foraminal stenosis with stump inj mint of the exiting nerve root s bilaterally due to the height loss of the disc space at this level. The visualized sacroiliac joints and sacrum appear unremarkable. PARASPINAL SOFT TISSUES: Visualized paraspinal tissues appear unremarkable. IMPRESSION: 1. Findings as described individually above. The most prominent central spinal canal stenosis is at the L2-3 and L3-4 levels, mostly related to short AP dimensions of the pedicles at these levels. The re are no significant focal disc protrusions at these levels. 2. 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 This is a lso not a new finding. 3. Other findings as above. RADIATION DOSE DELIVERED: 605.07mGy.cm Total DLP DATA REPOSITORY: All CT scans at this facility are submitted to the National Radiology Data Registry (NRDR) Dose Index Registry (DIR) with the [employer] (ACR). RADIATION OPTIMIZATION: All CT scans at this facility use at least one of these dose optimization te chniques: automated exposure control; mA and/or kV adjustment per patient size (includes targeted exa ms where dose is matched to clinical indication); or iterative reconstruction.
== END 2022-03-25 03:41 ==
LOC: DI 03:21
PROVIDERS: PCP Nurse Practitioner Family; Visit Provider Family Medicine
DX: M54.16 Radiculopathy, lumbar region (principal); M48.061 Spinal stenosis, lumbar region without neurogenic claudication; M43.16 Spondylolisthesis, lumbar region
CPT/HCPCS: 72131

== ENCOUNTER 2022-04-06 02:50 | Emergency (ER) | payer MEDICARE, SELFPAY ==
[2022-04-06 02:50] VITALS: BP 136/104; PULSE 70; RESP 20; TEMP 36.1; O2SAT 98
--- NOTE | 2022-04-06 03:01 | ED.GENADUL_ITS ---
Discharge Plan Disposition Patient Disposition: Home Condition: Good Discharge Details Clinical Impression: Left sided sciatica Primary Care Provider: Kodi Montez ED Provider: Hermelindo Moreon Home Meds and New Rx's Prescriptions: New prednisone 50 mg tablet 50 mg PO DAILY Qty: 5 0RF gabapentin [Neurontin] 300 mg capsule 300 mg PO TID Qty: 90 0RF Rx Instructions: On the first day take 1 pill, on the second day take 1 pill twice daily, on the third day and for the remainder of the prescription take 1 pill 3 times a day. No Action valsartan 80 mg tablet 80 mg PO DAILY albuterol sulfate [ProAir HFA] 90 mcg/actuation HFA aerosol inhaler 2 puff Inhalation QID PRN (Reason: asthma) Qty: 3 0RF Rx Instructions: J45.41 esomeprazole magnesium [Nexium] 40 mg capsule,delayed release(DR/EC) 20 mg PO BID Qty: 180 4RF hydrochlorothiazide 25 mg tablet 25 mg PO DAILY Qty: 90 3RF cholecalciferol (vitamin D3) 2,000 UNIT tablet 2,000 unit PO DAILY fluoxetine [Prozac] 20 mg capsule 20 mg PO DAILY Qty: 90 4RF montelukast [Singulair] 10 mg tablet 10 mg PO DAILY Qty: 90 3RF simvastatin [Zocor] 40 mg tablet 40 mg PO DAILY Qty: 90 3RF fluticasone propionate [Flonase] 16 GM spray,suspension 2 spry NS DAILY PRN Discharge Instructions Instructions: Sciatica (ED) Additional Instructions: At this time your symptoms appear consistent with sciatica. Please continue to take your Tylenol and Motrin as needed at home. I have sent a prescription for gabapentin to your pharmacy, please take this as directed. A prescription for steroids has also been sent to your pharmacy which should help reduce the symptoms. Please follow-up closely with your primary care provider at your scheduled appointment tomorrow, and the pain clinic next week. If you notice any worsening of your symptoms, or any new symptoms such as vomiting, diarrhea, fever, chills, shortness of breath, chest pain, numbness, weakness, or fainting , please return immediately to the emergency department for reevaluation. Please follow up with your primary care provider as soon as possible for reassessment and reevaluation. As always, it was a pleasure participating in your medical care today. Referrals: Kodi Montez, CASING BUILDER [Primary Care Provider] - Medical Decision Making 81-year-old female with a past medical history of psittacosis, high cholesterol, hypertension, GERD, asthma, pacemaker, notable spinal stenosis, who presents today for left-sided sciatica pain. Patient has been having the symptoms for the last 2 months. She has been following up closely with her primary care provider. She had a CT scan of the lumbar spine performed on the , which showed notable spinal stenosis. Anteriolisthesis, but no acute component. She is scheduled to see her primary care provider tomorrow, and has follow-up with the pain clinic for an injection on 13 April which is 1 week from today. She presents tonight via EMS for continued pain. She admits to pain and tingling radiating down the left lateral aspect of the leg to the foot. She denies any bowel or bladder incontinence. She denies any saddle anesthesia. She denies any new falls or trauma. No other complaints at this time. Patient has been taking some of her leftover gabapentin that she had at home, and this is not changed her symptoms. She has taken some Tylenol but this is also not improved her symptoms. No other complaints at this time. No other modifying factors. Exam demonstrates intact sensation, no midline back pain, no signs or symptoms concerning for cauda equina syndrome. Patient does have mild pain in her left lower extremity which is subjective. Suspect chronic nerve impingement likely secondary to chronic spinal stenosis. Patient is well-established with her primary care provider and there is clear evidence of excellent outpatient management of this with her referral to the pain clinic for injection, as well as her imaging that is already been performed and her follow-up tomorrow with her PCP. We will help to try to mitigate her pain at this time with some IM morphine, IM Toradol, and prednisone. We will monitor closely and reassess. 6:09 AM Patient did very well after medications. Patient [facility] well here [facility] and was observed for a few hours. She did well, and shows improvement of her symptoms. Will give prednisone and gabapentin for home use. Discussed red flags for which to return. Patient has no symptoms of cauda equina syndrome or other significant neurovascular compromise. I have extensively reviewed the treatment plan and discharge instructions with the patient. I have addressed all patient concerns at this time. The patient was made aware of what symptoms to monitor for that would warrant a return to the emergency department. Discussed the plan with the patient, they demonstrate verbal understanding and agreement with our assessment and plan at this time. The documentation in this chart was dictated using [employer] dictation software. Please excuse any dictation errors. HPI General Date/Time Provider Initiated Documentation: 04/06/22 03:53 . HPI Narrative: 81-year-old female with a past medical history of psittacosis, high cholesterol, hypertension, GERD, asthma, pacemaker, notable spinal stenosis, who presents today for left-sided sciatica pain. Patient has been having the symptoms for the last 2 months. She has been following up closely with her primary care provider. She had a CT scan of the lumbar spine performed on the , which showed notable spinal stenosis. Anteriolisthesis, but no acute component. She is scheduled to see her primary care provider tomorrow, and has follow-up with the pain clinic for an injection on 13 April which is 1 week from today. She presents tonight via EMS for continued pain. She admits to pain and tingling radiating down the left lateral aspect of the leg to the foot. She denies any bowel or bladder incontinence. She denies any saddle anesthesia. She denies any new falls or trauma. No other complaints at this time. Patient has been taking some of her leftover gabapentin that she had at home, and this is not changed her symptoms. She has taken some Tylenol but this is also not improved her symptoms. No other complaints at this time. No other modifying factors. Related Data Home Medications Medication Instructions Recorded Confirmed fluticasone propionate 50 2 spry NS DAILY PRN 06/07/13 03/18/22 mcg/actuation nasal spray,suspension (Flonase) cholecalciferol (vitamin D3) 50 2,000 unit PO DAILY 07/18/17 03/18/22 mcg (2,000 unit) tablet esomeprazole magnesium 40 mg 20 mg PO BID #180 tab-caps 07/31/19 03/18/22 capsule,delayed release (Nexium) fluoxetine 20 mg capsule (Prozac) 20 mg PO DAILY #90 caps 03/10/21 03/18/22 montelukast 10 mg tablet 10 mg PO DAILY #90 tabs 08/31/21 03/18/22 (Singulair) simvastatin 40 mg tablet (Zocor) 40 mg PO DAILY #90 tab-caps 08/31/21 03/18/22 albuterol sulfate 90 mcg/actuation 2 puff inhalation QID PRN asthma 12/16/21 03/18/22 aerosol inhaler (ProAir HFA) #3 ea valsartan 80 mg tablet 80 mg PO DAILY 12/16/21 03/18/22 hydrochlorothiazide 25 mg tablet 25 mg PO DAILY #90 tabs 03/10/22 03/18/22 gabapentin 300 mg capsule 300 mg PO TID #90 caps 04/06/22 (Neurontin) prednisone 50 mg tablet 50 mg PO DAILY #5 tabs 04/06/22 Previous Rx's Medication Instructions Recorded esomeprazole magnesium 40 mg 20 mg PO BID #180 tab-caps 07/31/19 capsule,delayed release (Nexium) fluoxetine 20 mg capsule (Prozac) 20 mg PO DAILY #90 caps 03/10/21 montelukast 10 mg tablet 10 mg PO DAILY #90 tabs 08/31/21 (Singulair) simvastatin 40 mg tablet (Zocor) 40 mg PO DAILY #90 tab-caps 08/31/21 albuterol sulfate 90 mcg/actuation 2 puff inhalation QID PRN asthma 12/16/21 aerosol inhaler (ProAir HFA) #3 ea hydrochlorothiazide 25 mg tablet 25 mg PO DAILY #90 tabs 03/10/22 gabapentin 300 mg capsule 300 mg PO TID #90 caps 04/06/22 (Neurontin) prednisone 50 mg tablet 50 mg PO DAILY #5 tabs 04/06/22 Allergies Allergy/AdvReac Type Severity Reaction Status Date / Time adhesive Allergy Severe SKIN RASH Verified 03/15/22 14:47 Sulfa (Sulfonamide Allergy Intermediate ITCHING Verified 03/15/22 14:47 Antibiotics) losartan Allergy Unknown SWELLING, Verified 03/15/22 14:47 ITCHING hydrocodone AdvReac Itching Verified 03/15/22 14:47 with high doses General Stated Complaint: GenMedical CLAUDIA: 4 Review of Systems All systems reviewed & are unremarkable except as noted in HPI and below PFSH All Active Problems Left sided sciatica (Acute) Urinary tract infection (Acute) Acute left flank pain (Acute) Liver cyst (Acute) Urinary tract infection (Acute) COVID-19 (Acute ~03/26/21) Left lumbar radiculopathy (Acute) Fracture, pelvis closed (Chronic) Hiatal hernia (Acute) Polyp of colon (Chronic) Asthma (Chronic) Interstitial lung disease (Chronic) a. 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 well controlled on SSRI PUD (peptic ulcer disease) (Chronic) Overweight (Chronic) Fibrocystic breast (Chronic) H/O surgical procedure (Chronic) a. Bilateral shoulder surgeries b. Right medial meniscus repair c. Rahman's cyst surgery d. Cataract surgery x 2 e. S/p Cholecystectomy f. S/p hysterectomy for benign reasons g. s/p breast biopsy h. S/p intraocular lens implants Hip bursitis, left (Chronic) Status post arthroscopy of right knee (Chronic) Status post partial lateral meniscectomy right knee with associated mild to moderate focal arthritis. Follow-up in approximately 2 weeks for use of dural Jac as a Visco supplement prior to her trip to [facility] [place]. Medical History (Updated 04/06/22 @ 05:06 by Hermelindo Moreno DO) Acute bacterial bronchitis Arthritis of left knee s/p total knee Asthma Gastroparesis GERD (gastroesophageal reflux disease) H/O: pneumonia Headache Hypercholesterolemia Osteoarthritis Peptic ulcer Unilateral inguinal hernia Surgical History Arthroscopy, Shoulder LEFT Biopsy of breast (~2005) LEFT Cholecystectomy Extraction of cataract 06/11/13; RIGHT 06/26/13; LEFT FX ARM (02/15/14) PLATE AND SCREWS History of cataract removal with insertion of prosthetic lens Hysterectomy, Laproscopic 1 ovary remains Status post arthroscopy of shoulder Status post breast biopsy Status post cholecystectomy Status post laparoscopic hysterectomy Family History Mother Diabetes Essential hypertension Depression Heart disease Hyperlipidemia Father , WW II at age 24. No problems noted. Brother Diabetes Essential hypertension Hyperlipidemia Neoplasm MELANOMA Grandfather Diabetes Essential hypertension Grandfather Essential hypertension Heart disease Hyperlipidemia Grandmother Essential hypertension Neoplasm Stroke Grandmother Diabetes Blood disease Neoplasm COLON FAMILY HISTORY Myocardial infarction Son Substance abuse Depression Hyperlipidemia Daughter Diabetes Depression Hyperlipidemia Asthma Social History Smoking/Tobacco Use Status: Never Smoking risk assessment performed?: Yes Alcohol Intake: current Alcohol Intake frequency: 0-2 drinks per day Alcohol type: hard liquor Drug use: Never Substance use type: does not use Caregiver/Support person: No Household members: none Housing: house Pets and animals: No What is your relationship status?: How often do you talk on the phone with friends or family?: three or more times per week Panel score (0-1 are the most socially isolated patients): 1 Seatbelt use: always Drive intox or ride w/intox armored car guard and driver: No Do you feel safe at home: Yes Do you feel safe in your relationship?: Yes Exam Narrative Exam Narrative: 1.Const: Well-nourished, Well-developed, appearing stated age 2.Eyes: PERRL, no conjunctival injection, and symmetrical lids. 3.ENT: Atraumatic external nose and ears. Moist MM. Neck: Symmetric, trachea m idline, No thyromegaly. 4.CVS: +S1/S2, No murmurs or gallops. Peripheral pulses 2+ and equal in all extremities. Brisk capillary refill in all extremities. 5.RESP: Unlabored respiratory effort. Clear to auscultation bilaterally. No wheezes rales or rhonchi 6.GI: Soft, Nontender/Nondistended, No hepatosplenomegaly. No guarding or rebound. 7.MSK: Normocephalic/Atraumatic, Extremities w/o deformity or ttp No cyanosis or clubbing, Normal movement of all extremities No midline tenderness to palpation over the CTLS spine. Normal ROM in flexion, extension, side bend, and rotation. Patient has +5 out of 5 strength in the lower extremities in dorsiflexion and plantarflexion, knee flexion and extension, hip flexion and extension. Normal strength for dorsiflexion and plantar flexion of the great toe bilaterally. There is +2 over 2 dorsalis pedis pulses bilaterally. There is normal sensation to the skin with light touch at the foot, knee, and hip. Normal saddle sensation. Good sensation over the deep sural nerve area bilaterally. Rectal exam deferred. Reflexes are +2 over 4 in the patellar reflex bilaterally. +5 out of 5 strength in the medial, ulnar, radial nerve distribution bilaterally in the hands as well as intact light touch sensation to these dermatomes on the hands 8.Skin: Warm, Dry. No rashes or lesions. 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 Sensation grossly intact, no focal neurologic deficits. 10.Psych: (AAO) x3. Appropriate mood and affect Course Vital Signs Vital signs: Vital Signs Temperature 36.1 C L 04/06/22 02:50 Pulse 70 04/06/22 02:50 Respiratory Rate 20 04/06/22 02:50 Blood Pressure 136/104 H 04/06/22 02:50 Pulse Oximetry 98 04/06/22 02:50 Temperature 36.1 C L 04/06/22 02:50 Pulse 70 04/06/22 02:50 Respiratory Rate 20 04/06/22 02:50 Respiratory Effort 04/06/22 02:57 Blood Pressure 136/104 H 04/06/22 02:50 Pulse Oximetry 98 04/06/22 02:50 Oxygen Delivery Method Room Air 04/06/22 02:50 Oxygen Flow Rate 0 04/06/22 02:50 Pain Level 10 04/06/22 02:50
[2022-04-06] MEDS: Ketorolac 15 MG/ML VIAL IM (03:07)
[2022-04-06] MEDS: MORPHine 4 MG/ML SYR IM ×2 (03:07→05:42)
[2022-04-06] MEDS: predniSONE 20 MG TAB 60 MG PO (03:08)
--- NOTE | 2022-04-06 04:09 | NUR.NOTE ---
Nursing Note: went in to give pt 2nd shot of morphine and pt was resting comfortably, no signs of distress. Notified provider - ordered to hold medication at this time.
[2022-04-06 05:44] VITALS: BP 139/59; RESP 15; O2SAT 93
[2022-04-06 07:10] VITALS: BP 142/62; PULSE 74; RESP 16; O2SAT 95
== END 2022-04-06 07:13 | disposition home or self-care (01) ==
PROVIDERS: Emergency Provider Student in an Organized Health Care Education/Training Program; PCP Nurse Practitioner Family
DX: M54.32 Sciatica, left side (principal); I10 Essential (primary) hypertension; J45.909 Unspecified asthma, uncomplicated; M48.061 Spinal stenosis, lumbar region without neurogenic claudication; Z95.0 Presence of cardiac pacemaker
CPT/HCPCS: 96372; 99284; J1885; J2270; J7512

== ENCOUNTER 2022-05-05 09:14 | Outpatient (CLI) | payer MEDICARE, SELFPAY ==
[2022-05-05 09:24] VITALS: BP 82/52; PULSE 73; RESP 16; TEMP 37.1; O2SAT 96
[2022-05-05 09:59] VITALS: BP 137/50; PULSE 71; RESP 16; O2SAT 98
--- NOTE | 2022-05-05 10:00 | DI.RAD_ITS ---
Exam(s) XR PAIN CLINIC LUMBAR SP 2V EXAM: XR PAIN CLINIC LUMBAR SP 2V CLINICAL HISTORY: Dx: Lumbar Spondylosis TECHNIQUE: 2D and realtime digital imaging was performed. CONTRAST MATERIAL: Refer to procedure report. COMPARISON: No exams were available for comparison FINDINGS: Fluoroscopy was provided for Dr. Gastelum during the performance of a lumbar medial branch block. Asuncion nelson refer to the procedure report for complete details. Ka,r=8.18 mGy IMPRESSION:
[2022-05-05 10:08] VITALS: BP 96/56; PULSE 95; RESP 16; O2SAT 97
[2022-05-05] MEDS: Lidocaine 2% Pres-Free 5 ML VIAL IJ (10:14)
[2022-05-05] MEDS: Omnipaque 240 MG/ML 50 ML BTL IJ (10:15)
--- NOTE | 2022-05-05 12:09 | PDOC.PAIN_ITS ---
Date of service: 05/05/22 Time of Service: 09:45 Pain Clinic Procedure Note Procedure Note Procedure Note: Lumbar/Sacral Medial Branch Blocks Teri Soto has been referred to the Pain Management Center for lumbar/sacral medial branch blocks. COMMENTS: This is a confirmatory block. She had >2 years of excellent pain relief with her last left L3-L5 RFA in 2019. Dx: Lumbosacral spondylosis without myelopathy Pre-procedure pain VAS: 7/10 Patient was interviewed and the medical record reviewed. There were no medical, pharmacologic, radiographic or other structural contraindications to attempting fluoroscopically guided local anesthetic lumbar/sacral medial branch blocks. Risks and expected side effects as well as potential benefit of the procedure were reviewed and voiced concerns addressed. The printed consent form was signed and witnessed. Standard time-out procedure was performed. Patient was placed in the prone position on the fluoroscopy table and automated blood pressure cuff and pulse oximeter applied. The skin entry points for approaching the anatomic target points of the segmental medial branches of the left L3-L5 were identified with anfluoroscopy and marked. Following thorough Chlorhexadine preparation of the skin and draping, a 25 gauge spinal needle was placed under fluoroscopic guidance down on to the target point for each respective segmental medial branch.Position was confirmed in A/P, oblique and lateral views with 0.25ml of omnipaque 240. At this point 0.5cc of 2% Lidocaine was injected at each segmental sensory nerve. Vital signs were stable throughout the procedure and were as recorded in the docflowsheet by the nursing staff. Follow up plans and appointments were discussed and was instructed to keep careful note of how the usual pain was modified by these injections. Specifically was asked to keep a pain diary for the next 24 hours using a numeric pain scale of 0-10 and report these results at the follow-up visit. Post procedure instruction was given as documented in the nursing documentation and having met discharge criteria. Patient was discharged from the Pain Management Center. Based on the medial branches blocked today, if the patient has adequate relief and we are able to proceed to radiofrequency ablation, the treatment should result in the denervation of the Left L4-L5 and L5-S1 FACET JOINTS. We would expect to denervate a total of 2 facets during the radiofrequency ablation. COMMENTS: Post-procedure pain VAS was 3/10. Gerardo Gastelum DO, MPH [facility] Management [facility] CC: Kodi Montez, ANODIC OPERATOR
== END 2022-05-05 09:15 | disposition home or self-care (01) ==
LOC: PC 09:14
PROVIDERS: PCP Nurse Practitioner Family; Visit Provider Preventive Medicine Occupational Medicine
DX: M47.817 Spondylosis without myelopathy or radiculopathy, lumbosacral region (principal); M54.50 Low back pain, unspecified
CPT/HCPCS: 64493; 64494; 72100; Q9967

== ENCOUNTER 2022-05-10 18:52 | Outpatient (REF) | payer MEDICARE, SELFPAY | END 2022-05-10 18:53 | disposition home or self-care (01) | LOC: LBN 18:52 | PROVIDERS: PCP Nurse Practitioner Family; Visit Provider Nurse Practitioner Family | DX: R39.15 Urgency of urination (principal) | CPT/HCPCS: 87077; 87086; 87186 ==

== ENCOUNTER 2022-07-14 14:07 | Outpatient (CLI) | payer MEDICARE, SELFPAY ==
[2022-07-14 14:25] LABS: Abs Immature Grans 0.18 10^3/uL (0.0-0.06); Absolute Basophil Count 0.03 10^3/uL (0.0-0.2); Absolute Eosinophil Count 0.06 10^3/uL (0.0-0.7); Absolute Lymphocyte Count 1.37 10^3/uL (1.2-3.4); Absolute Neutrophil Count 9.42 10^3/uL (1.2-6.7); Basophils % 0.3; Eosinophils % 0.5; HCT 41.5 % (36.0-46.0); HGB 14.1 g/dL (11.2-15.7); Immature Grans % 1.6; Lymphocytes % 12.1; MCH 30.5 pg (27.0-33.0); MCV 90 fL (80-95); MPV 10.1 fL (8.0-11.0); Monocytes % 2.6; Neutrophils % 82.9; Platelet Count 216 10^3/uL (130-400); RBC 4.62 10^6/uL (3.93-5.22); RDW 12.4 % (11.7-14.6); WBC 11.36 10^3/uL (4.4-10.8)
[2022-07-16 08:15] LABS: IgE 107 IU/mL (<158)
== END 2022-07-14 14:08 | disposition home or self-care (01) ==
LOC: LBO 14:08
PROVIDERS: PCP Nurse Practitioner Family; Visit Provider Student in an Organized Health Care Education/Training Program
DX: J45.41 Moderate persistent asthma with (acute) exacerbation (principal)
CPT/HCPCS: 36415; 82785; 85025

== ENCOUNTER → 2022-08-11 09:33 | Outpatient (BNVA) | payer MEDICARE, SELFPAY | PROVIDERS: PCP Nurse Practitioner Family; Referring Provider Nurse Practitioner Family; Visit Provider Internal Medicine Cardiovascular Disease | DX: Z45.018 Encounter for adjustment and management of other part of cardiac pacemaker (principal) | CPT/HCPCS: 93286 ==

== ENCOUNTER 2022-08-11 12:41 | Outpatient (CLI) | payer MEDICARE, SELFPAY ==
--- NOTE | 2022-08-11 06:00 | DI.RAD_ITS ---
Exam(s) XR PAIN CLINIC LUMBAR SP 2V EXAM: XR PAIN CLINIC LUMBAR SP 2V CLINICAL HISTORY: Dx: Lumbar Spondylosis TECHNIQUE: 2D and realtime digital imaging was performed. CONTRAST MATERIAL: Refer to procedure report. COMPARISON: No exams were available for comparison FINDINGS: Fluoroscopy was provided for Dr. Gastelum during pain management. Please refer to the procedure report for complete details. Ka,r=8.92 mGy IMPRESSION:
[2022-08-11 12:50] VITALS: BP 133/78; PULSE 84; RESP 20; TEMP 36.4; O2SAT 97
[2022-08-11] MEDS: fentaNYL 100 MCG/2 ML VIAL IVP (13:20)
[2022-08-11] MEDS: Midazolam 2 MG/2 ML VIAL IVP (13:20)
[2022-08-11] MEDS: Lactated Ringers 500 ML 80 ML IV (13:22)
[2022-08-11 13:41] VITALS: BP 140/77; PULSE 63; RESP 18; O2SAT 99
[2022-08-11] MEDS: Bupivacaine 0.5% Pres-Free 10 ML VIAL IJ (13:56)
[2022-08-11] MEDS: methylPREDNISolone ACETATE 40 MG/ML VIAL IJ (13:57)
[2022-08-11] MEDS: Lidocaine 2% Pres-Free 5 ML VIAL IJ (13:57)
--- NOTE | 2022-08-11 14:08 | PDOC.PAIN ---
Date of service: 08/11/22 Time of Service: 14:08 Pain Managment Procedure Note Procedure Note Procedure Note: Left L3-S1 Lumbar Radiofrequency with the [employer] Machine PROCEDURE NOTE Date of Service: August 11, 2022 Patient: Teri Soto Provider: Gerardo Gastelum DO, DO, MPH Pre Operative Diagnosis: Lumbosacral Spondylosis without Myelopathy Post Operative Diagnosis: Same Pre procedure pain; VAS= 6/10 Comments: She has a pacemaker and is set to see cardiology directly after this procedure. PROCEDURE: Radiofrequency Ablation of medial branches - Left L3 L4 L5 and lateral branch of the left S1. Teri Soto was brought into the fluoroscopy suite and positioned into the prone position on the fluoroscopy table and allowed to adjust to a position of comfort. A grounding pad was placed on the left abdomen. The lumbar region was widely prepped with a chloraprep solution, allowed to air dry and draped in standard sterile surgical fashion. Local anesthesia was provided by 4 mL of 2% Lidocaine delivered with a 25g needle. A 17g 100 mm radiofrequency introducer needle was placed to the planned anatomic targets guided with intermittent fluoroscopy with a perpendicular approach to terminally place at the junction of the superior articular process and the transverse process of the left L4, L5, the base of the sacral ala on the left for the L5 medial branch nerve and the area between base of the sacral ala to the S1 foramen on the left. The stylets were removed and radiofrequency probes with a 4mm active tip were then inserted. Needle tip position of the probes was verified in the AP, oblique, and lateral views. At each site, the medial branch nerve was stimulated at 2 Hz to a maximum 1-2 volts determined to finalize safe needle and electrode placement. The patient was awake and responsive during this portion of the procedure. Each target was anesthetized with 1-2 mL of 2 % Lidocaine for anesthesia for lesioning and then each target was lesioned at 80 degrees Celsius for 2 minutes and 30 seconds. Tissue impedences were noted to be between 250 and 500 Ohms. I then injected 1/4 cc of Depomedrol (40mg/cc) followed by 1 cc of 0.5% Bupivacaine at each segmental sensory nerve. Electrodes and needles were then removed and bandages placed over the needle placement sites, the patient then returned to the supine position on a stretcher and transported to the recovery room without hemodynamic, neurologic, or allergic reactions. Fluoroscopic images were printed for hard copy recording and digitally archived. POST PROCEDURE EVALUATION: IMPRESSION: 1. Summary of procedure. Medication given is documented in the MAR. 2. The patient will be contacted in 1-3 weeks 3. Estimated Blood Loss: <5 mls 4. Fluoroscopy time: Documented in the EMR. Follow up plans and appointments were discussed with the Teri . Post procedure instruction was given as documented in nursing documentation and having met discharge criteria, Trei was discharged from the Pain Management Center. COMMENTS: No apparent complications. Post-procedure pain: VAS= 0/10. She saw cardiology in our clinic directly after the procedure. F/U with our office as needed. I personally performed this entire procedure. Gerardo Gastelum DO, MPH [facility]-Pain Management [facility]
== END 2022-08-11 12:42 | disposition home or self-care (01) ==
LOC: PC 12:41
PROVIDERS: PCP Nurse Practitioner Family; Visit Provider Preventive Medicine Occupational Medicine
DX: M47.817 Spondylosis without myelopathy or radiculopathy, lumbosacral region (principal); M54.50 Low back pain, unspecified
CPT/HCPCS: 64635; 64636; 72100; 93286; J1030; J2250; J3010

== ENCOUNTER 2022-09-06 17:18 | Outpatient (REF) | payer MEDICARE, SELFPAY | END 2022-09-06 17:19 | disposition home or self-care (01) | LOC: LBN 17:18 | PROVIDERS: PCP Nurse Practitioner Family; Visit Provider Nurse Practitioner Family | DX: N39.0 Urinary tract infection, site not specified (principal) | CPT/HCPCS: 87086 ==

== ENCOUNTER 2022-09-16 16:27 | Outpatient (CLI) | payer MEDICARE, SELFPAY ==
--- NOTE | 2022-09-16 16:15 | RT.EKG_ITS ---
APPROVED REPORT Exam: Resting ECG Reason for Exam: Light Headed Patient Location: O HR:82 bpm ECG Measurements Heart Rate 82 AXIS MD 215 P 34 QRSd 140 QRS -72 QT 394 T 99 QTc 461 Conclusion Sinus rhythm...normal P axis, V-rate 50- 99 Borderline prolonged MD interval...MD >212, V-rate 50- 90 Probable left atrial enlargement...P >50mS, <-0.10mV V1 IVCD, consider atypical RBBB...QRSd>120mS, terminal axis(90,270) LVH with IVCD, LAD and secondary repol abnrm...multi-criteria, wQRSd, abnr ST-T Inferior infarct, acute (RCA)...ST>0.10mV in III > II Probable RV involvement, suggest recording right precordial leads
== END 2022-09-16 16:28 | disposition home or self-care (01) ==
LOC: DI.CM 16:28
PROVIDERS: PCP Nurse Practitioner Family; Visit Provider Nurse Practitioner Family
DX: R42 Dizziness and giddiness (principal)
CPT/HCPCS: 93010

== ENCOUNTER 2022-09-16 17:23 | Inpatient (IN) | payer MEDICARE, SELFPAY ==
[2022-09-16] VITALS (52 sets, daily range): BP systolic 103–169; BP diastolic 61–101; PULSE 69–97; RESP 10–34; TEMP 36.9; O2SAT 88–98
--- NOTE | 2022-09-16 17:15 | RT.EKG_ITS ---
APPROVED REPORT Exam: Resting ECG Reason for Exam: shortness of breath Patient Location: E HR:91 bpm ECG Measurements Heart Rate 91 AXIS NH 232 P 33 QRSd 140 QRS -69 QT 409 T 101 QTc 502 Conclusion Ventricular-paced complexes...other complexes also detected Prolonged NH interval...NH >215, V-rate 91-120 IVCD, consider RBBB...QRSd>120mS, terminal axis(90,270) LVH with IVCD, LAD and secondary repol abnrm...multi-criteria, wQRSd, abnr ST-T ST elevation secondary to LVH...Multiple VCG criteria Atrial sensed ventricularly paced rhythm with prolonged AV conduction and pattern of left bundle bran ch block. Not meeting Sgarbossa criteria nor modified Rodas criteria for ischemia. Appears similar to prior in [facility] EMR from September 2021. Appears different compared to prior in [facility] system as patient is now in a paced rhythm.
--- NOTE | 2022-09-16 17:54 | ED.GENADUL_ITS ---
Discharge Plan Disposition Patient Disposition: Admit to [facility] Discharge Details Clinical Impression: Increasing shortness of breath Primary Care Provider: Kodi Montez ED Provider: Kingsley Jay [place] Meds and New Rx's Prescriptions: Continued albuterol sulfate [ProAir HFA] 90 mcg/actuation HFA aerosol inhaler 2 puff Inhalation QID PRN (Reason: asthma) Qty: 3 0RF Rx Instructions: J45.41 fluticasone propion-salmeterol [Wixela Inhub] 250-50 mcg/dose blister with device 1 inh inhalation BID esomeprazole magnesium [Nexium] 40 mg capsule,delayed release(DR/EC) 20 mg PO BID Qty: 180 4RF hydrochlorothiazide 25 mg tablet 25 mg PO DAILY Qty: 90 3RF cefpodoxime 200 mg tablet 200 mg PO BID Qty: 14 0RF Rx Instructions: must administer with a meal/food fluoxetine [Prozac] 20 mg capsule 20 mg PO DAILY Qty: 90 4RF valsartan 80 mg tablet 80 mg PO DAILY Qty: 90 3RF Trelegy Ellipta 200-62.5-25 mcg blister with device 1 inh inhalation DAILY Qty: 60 6RF simvastatin [Zocor] 40 mg tablet 40 mg PO DAILY Qty: 90 3RF prednisone 10 mg tablet 10 mg PO DIRECTED Qty: 40 0RF Rx Instructions: Take 4 tabs for 5 days, 3 tabs for 3 days, 2 tabs for 3 days, 1 tab for 3 days, 0.5 tabs for 3 days albuterol sulfate 1.25 mg/3 mL solution for nebulization 1.25 mg inhalation QID PRN (Reason: shortness of breath or wheezing) Qty: 540 7RF montelukast [Singulair] 10 mg tablet 10 mg PO DAILY Qty: 90 3RF fluticasone propionate [Flonase] 16 GM spray,suspension 2 spry NS DAILY PRN Medical Decision Making This is an overall well-appearing normothermic and not tachycardic 81-year-old female with history of interstitial lung disease and now in the emergency department in the setting of shortness of breath and sweating. Her ECG does show that she has not a paced rhythm which is new compared to her prior ECG in the [facility] system and as result it does appear that she has a new left bundle. She is not having any chest pain however we will trend troponins given shortness of breath this certainly could be an anginal equivalent. We will obtain a D- dimer to assess for PE given shortness of breath. She was recently treated for a urinary tract infection is having no dysuria nor frequency. No pain out of proportion to suggest necrotizing soft tissue infection. She is neurologically intact and my suspicion is exceedingly low for acute CVA. Given her lack of neurological deficits I do not feel that she is a tPA candidate. She is not having a headache to suggest subarachnoid hemorrhage. No jaw claudication or pain when brushing her hair to suggest giant cell arteritis. She was reportedly hyperglycemic at urgent care and this certainly could cause difficulty focusing. No cough to suggest pneumonia. Will obtain 2 sets of troponin and reassess. Will obtain 2 view chest x-ray. Shortness of breath could also secondarily be resulting from pacemaker malfunction so we will have pacemaker interrogated. I considered exacerbation of reactive airway disease however patient is not coughing has not had any increased sputum production and is on outpatient steroids I did not feel to benefit from inhaler. No chest pain to suggest aortic dissection. No lower extremity edema to suggest acute CHF. Certainly possible that the patient has developed pulmonary hypertension given her interstitial lung disease and this is causing her shortness of breath. She may benefit from echocardiogram or a right heart catheterization but will defer this decision to her primary care provider. 7:36pm Basic metabolic panel with no HIRAM. Mildly elevated BUN similar to prior. Mild anion gap. Mild hyperglycemia. Normal bicarbonate not consistent with DKA. Negative D-dimer. Reassuring chest x-ray. 7:34 PM Unfortunately our pacemaker interrogator could not interrogate patient's interrogate the patient's pacemaker. Given my concern for dysrhythmia I do not feel it is appropriate to discharge patient home on as result we will reach out to hospitalist with request for hospitalization for telemetry and in hopes of troubleshooting the pacemaker interrogated tomorrow to ensure that the patient has not had any tacky dysrhythmias. 8 PM [address] spoke with Dr[address] Owens from the hospitalist service to graciously agreed to accept the patient for hospitalization. 11:15 PM Repeat troponin negative. I am still waiting to hear back from [facility] as they were able to receive our interrogation of the patient's pacemaker. Health community relations assistant Elvie has reached out to them. They have faxed a comprehensive report but I am hoping to speak with a orthodontic lab technician for clarification to ensure that the patient did not have not have any significant dysrhythmia. 12:34 AM I have not yet heard back from [facility]. We will sign patient out to the overnight provider Dr. Wray pending review of pacemaker interrogation to ensure patient has not had any significant dysrhythmias. Chronic conditions affecting the care of the patient: Interstitial lung disease History obtained from an outside historian: N/A External record review: [facility] [place] Diagnostic interpretations performed by me: [Per my independent interpretation chest x-ray shows:] No infiltrate Per my independent interpretation EKG shows: Atrial sensed ventricularly paced rhythm with prolonged AV conduction and pattern of left bundle branch block. Not meeting Sgarbossa criteria nor modified Rodas criteria for ischemia. Appears similar to prior in [facility] [place] E[place] from September 2021. Appears different compared to prior in [facility] system as patient is now in a paced rhythm. Medications: None Social determinants of health affecting disposition: N/A Management discussed with: N/A Treatment/interventions considered: Discharge home but deferred given unable to obtain information from [facility]. Response to therapies provided: N/A HPI General Date/Time Provider Initiated Documentation: 09/16/22 17:40 . HPI Narrative: This is an 81-year-old female with a history of interstitial lung disease and a pacemaker in the emergency department in setting of shortness of breath. Shannon ent reports that for the last 3 days she has intermittently had difficulty focusing her eyes and felt more short of breath. She is on outpatient prednisone. She recently completed a course of antibiotics for a urinary tract infection. She is having no persistent dysuria. There was concerned at urgent care that she had ECG changes. She was given aspirin and transferred to the ED. She has had difficulty focusing for the past several days. She has had some diarrhea for the past several days but this resolved today. She is having no abdominal pain. She is not having any chest pain. She has been nauseous but has not vomited. She never had a DVT nor PE. She is having no cough. She has had no unintentional weight gain. She has no history of heart failure. Related Data Home Medications Medication Instructions Recorded Confirmed fluticasone propionate 50 2 spry NS DAILY PRN 06/07/13 09/16/22 mcg/actuation nasal spray,suspension (Flonase) esomeprazole magnesium 40 mg 20 mg PO BID #180 tab-caps 07/31/19 09/16/22 capsule,delayed release (Nexium) albuterol sulfate 90 mcg/actuation 2 puff inhalation QID PRN asthma 12/16/21 09/16/22 aerosol inhaler (ProAir HFA) #3 ea hydrochlorothiazide 25 mg tablet 25 mg PO DAILY #90 tabs 03/10/22 09/16/22 fluoxetine 20 mg capsule (Prozac) 20 mg PO DAILY #90 caps 05/31/22 09/16/22 valsartan 80 mg tablet 80 mg PO DAILY #90 tabs 05/31/22 09/16/22 fluticasone 250 mcg-salmeterol 50 1 inh inhalation BID 07/13/22 09/16/22 mcg/dose blistr powdr for inhalation (Kelly Cotto) fluticasone fur. 200 mcg-umeclid 1 inh inhalation DAILY #60 ea 08/09/22 09/16/22 62.5 mcg-vilant 25 mcg inhalat.powder (Trelegy Ellipta) simvastatin 40 mg tablet (Zocor) 40 mg PO DAILY #90 tab-caps 08/27/22 09/16/22 albuterol sulfate 1.25 mg/3 mL 1.25 mg (3 mL) inhalation QID PRN 09/06/22 09/16/22 solution for nebulization shortness of breath or wheezing #540 mL cefpodoxime 200 mg tablet 200 mg PO BID #14 tabs 09/06/22 09/16/22 prednisone 10 mg tablet 10 mg PO DIRECTED #40 tabs 09/06/22 09/16/22 montelukast 10 mg tablet 10 mg PO DAILY #90 tabs 09/09/22 09/16/22 (Singulair) Previous Rx's Medication Instructions Recorded esomeprazole magnesium 40 mg 20 mg PO BID #180 tab-caps 07/31/19 capsule,delayed release (Nexium) albuterol sulfate 90 mcg/actuation 2 puff inhalation QID PRN asthma 12/16/21 aerosol inhaler (ProAir HFA) #3 ea hydrochlorothiazide 25 mg tablet 25 mg PO DAILY #90 tabs 03/10/22 fluoxetine 20 mg capsule (Prozac) 20 mg PO DAILY #90 caps 05/31/22 valsartan 80 mg tablet 80 mg PO DAILY #90 tabs 05/31/22 fluticasone fur. 200 mcg-umeclid 1 inh inhalation DAILY #60 ea 08/09/22 62.5 mcg-vilant 25 mcg inhalat.powder (Trelegy Ellipta) simvastatin 40 mg tablet (Zocor) 40 mg PO DAILY #90 tab-caps 08/27/22 albuterol sulfate 1.25 mg/3 mL 1.25 mg (3 mL) inhalation QID PRN 09/06/22 solution for nebulization shortness of breath or wheezing #540 mL cefpodoxime 200 mg tablet 200 mg PO BID #14 tabs 09/06/22 prednisone 10 mg tablet 10 mg PO DIRECTED #40 tabs 09/06/22 montelukast 10 mg tablet 10 mg PO DAILY #90 tabs 09/09/22 (Singulair) Allergies Allergy/AdvReac Type Severity Reaction Status Date / Time adhesive Allergy Severe SKIN RASH Verified 09/16/22 18:18 Sulfa (Sulfonamide Allergy Intermediate ITCHING Verified 09/16/22 18:18 Antibiotics) losartan Allergy Unknown SWELLING, Verified 09/16/22 18:18 ITCHING hydrocodone AdvReac Itching Verified 09/16/22 18:18 with high doses General Stated Complaint: SOB CLAUDIA: 3 PFSH All Active Problems Increasing shortness of breath (Acute) Pacemaker (Acute) [employer] placed at [facility] [place] by Dr. Nicholson 07/31/21. Interstitial lung disease (Chronic) a. due to h/o psittacosis approximately 14-15 years ago Depression (Chronic) a. well controlled on SSRI PUD (peptic ulcer disease) (Chronic) Overweight (Chronic) Fibrocystic breast (Chronic) H/O surgical procedure (Chronic) a. Bilateral shoulder surgeries b. Right medial meniscus repair c. Rahman's cyst surgery d. Cataract surgery x 2 e. S/p Cholecystectomy f. S/p hysterectomy for benign reasons g. s/p breast biopsy h. 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 Follow-up in approximately 2 weeks for use of dural Jac as a Visco supplement prior to her trip to [facility] [employer]. Polyp of colon (Chronic) Hiatal hernia (Acute) Fracture, pelvis closed (Chronic) Left lumbar radiculopathy (Acute) COVID-19 (Acute) Onset~03/2021, Onset 05/26/22 Urinary tract infection (Acute) Liver cyst (Acute) Medical History Acute bacterial bronchitis Arthritis of left knee s/p total knee Asthma Gastroparesis GERD (gastroesophageal reflux disease) H/O: pneumonia Headache Hypercholesterolemia Insomnia Osteoarthritis Peptic ulcer Unilateral inguinal hernia Surgical History Arthroscopy, Shoulder LEFT Biopsy of breast (~2005) LEFT Cholecystectomy Extraction of cataract 06/11/13; RIGHT 06/26/13; LEFT FX ARM (02/15/14) PLATE AND SCREWS History of cataract removal with insertion of prosthetic lens Hysterectomy, Laproscopic 1 ovary remains Status post arthroscopy of shoulder Status post breast biopsy Status post cholecystectomy Status post laparoscopic hysterectomy Status post right knee replacement Family History Mother Diabetes Essential hypertension Depression Heart disease Hyperlipidemia Father , WW II at age 24. No problems noted. Brother Diabetes Essential hypertension Hyperlipidemia Neoplasm MELANOMA Grandfather Diabetes Essential hypertension Grandfather Essential hypertension Heart disease Hyperlipidemia Grandmother Essential hypertension Neoplasm Stroke Grandmother Diabetes Blood disease Neoplasm COLON FAMILY HISTORY Myocardial infarction Son Substance abuse Depression Hyperlipidemia Daughter Diabetes Depression Hyperlipidemia Asthma Social History Smoking/Tobacco Use Status: Never Smoking risk assessment performed?: Yes Alcohol Intake: current Alcohol Intake frequency: a few times a month Alcohol type: hard liquor Drug use: Never Substance use type: does not use Caregiver/Support person: No Household members: none Housing: house Do you need help understanding health information?: Never Pets and animals: No Current gender identity: female What is your relationship status?: How often do you talk on the phone with friends or family?: three or more times per week How often do you get together with friends or relatives?: decline to answer How often do you attend sabianism or islam services?: decline to answer Do you belong to any clubs or organized social groups?: yes Panel score (0-1 are the most socially isolated patients): 2 What type of physical activity do you participate in: walking Janet/Taoism: None Special janet needs: No Seatbelt use: always Drive intox or ride w/intox emergency vehicle driver: No Do you feel safe at home: Yes Do you feel safe in your relationship?: Yes Additional Social history: 6years ago. Lives by self. Exam Narrative Exam Narrative: General: Well-appearing in no acute distress speaking in complete sentences. Head: Normocephalic, atraumatic. Eye: Pupils equal, round reactive to light. Extraocular eye movements intact. No conjunctival injection. No scleral icterus. Ear, nose, mouth, throat: Grossly normal inspection. Normal voice, handling secretions normally. Neck: Trachea midline. Cardiovascular: Well-perfused distal extremities. Regular rate & rythym. Respiratory: Nonlabored respiration. Clear lungs with mildly prolonged expiratory phase. Gastrointestinal: Nondistended abdomen. Musculoskeletal: No edema. Moving all 4 extremities spontaneously. Skin: Normal for age and race, grossly normal temperature and turgor. No acute rash. Neurologic: Alert and appropriate, no apparent acute deficits. GCS 15. Cranial nerves II through XII intact grossly. No dysmetria. No dysdiadochokinesia. 5 out of 5 bilateral upper and lower extremity strength. No pronator drift. No acute neurological deficits. Psychiatric: Mood and manner are appropriate. Grooming and personal hygiene are appropriate. Course Vital Signs Vital signs: Vital Signs Temperature 36.9 C 09/16/22 17:26 Pulse 84 09/16/22 17:26 Respiratory Rate 22 09/16/22 17:26 Blood Pressure 169/90 H 09/16/22 17:26 Pulse Oximetry 97 09/16/22 17:26 Temperature 36.9 C 09/16/22 17:26 Temperature Source Oral 09/16/22 17:26 Pulse 84 09/16/22 17:26 Respiratory Rate 22 09/16/22 17:26 Respiratory Effort Normal, Non-Labored 09/16/22 17:32 Blood Pressure 169/90 H 09/16/22 17:26 Pulse Oximetry 97 09/16/22 17:26 Pain Level 0 09/16/22 17:26 PAWSS Have you Been Recently Intoxicated or Drunk Within the Last 30 days?: No Have you Ever Experienced Previous Episodes of Alcohol Withdrawal?: No Have you ever Experienced Withdrawal Seizures?: No Have you ever Experienced Delirium Tremens(DT)s?: No Have you ever undergone Alcohol Rehabilitation Treatment (i.e, inpt ot outpatient treatment programs)?: No Have you ever Experienced Blackouts?: No Have you ever Combined Alcohol with other Downers within the last 90 days?: No Have you ever Combined Alcohol with any other Substance of Abuse during the last 90 days?: No Result: 0
--- NOTE | 2022-09-16 18:00 | DI.RAD_ITS ---
Exam(s) XR CHEST 2V PA LATERAL EXAM: XR CHEST 2V PA LATERAL CLINICAL HISTORY: SOB. TECHNIQUE: 2D digital imaging was performed. COMPARISON: No exams were available for comparison FINDINGS: 2 views: Bipolar left subclavian pacemaker with lead tips in RA and RV again noted, unchanged. Heart size is normal. The mediastinum is not widened. Lungs are clear. No infiltrates nor pleural effusions. No evidence of pulmonary edema. Right humerus hardware again noted. Slight loss of height of a midt horacic vertebra is again noted, unchanged. IMPRESSION: No acute pulmonary findings.Pacemaker. No pulmonary edema. No pleural effusions. DATA REPOSITORY: RADIATION DOSE DELIVERED:
[2022-09-16 18:24] LABS: Abs Immature Grans 0.45 10^3/uL (0.0-0.06); Absolute Basophil Count 0.07 10^3/uL (0.0-0.2); Absolute Eosinophil Count 0.04 10^3/uL (0.0-0.7); Absolute Lymphocyte Count 1.88 10^3/uL (1.2-3.4); Absolute Monocyte Count 0.62 10^3/uL (0.1-0.8); Absolute Neutrophil Count 6.79 10^3/uL (1.2-6.7); Basophils % 0.7; Eosinophils % 0.4; HCT 42.5 % (36.0-46.0); HGB 14.7 g/dL (11.2-15.7); Immature Grans % 4.6; Lymphocytes % 19.1; MCH 30.6 pg (27.0-33.0); MCHC 34.6 % (32.0-36.0); MCV 88 fL (80-95); Monocytes % 6.3; Neutrophils % 68.9; Platelet Count 271 10^3/uL (130-400); RBC 4.81 10^6/uL (3.93-5.22); RDW 12.7 % (11.7-14.6); RDW-SD 41.3 fL; WBC 9.85 10^3/uL (4.4-10.8)
[2022-09-16 18:42] LABS: Anion Gap 11.2 mmol/L (3-11); BUN 27 mg/dL (7-18); CO2 25.8 mmol/L (21.0-32.0); CREATININE 1.1 mg/dL (0.55-1.02); Calcium 9.2 mg/dL (8.5-10.1); Chloride 100 mmol/L (98-107); Glucose 152 mg/dL (74-106); Magnesium 1.9 mg/dL (1.8-2.4); Potassium 3.7 mmol/L (3.5-5.1); Sodium 137 mmol/L (136-145); Troponin I < 50 ng/L (<or=60)
[2022-09-16 18:55] LABS: D-Dimer 325 ng/mlFEU (<500)
--- NOTE | 2022-09-16 19:09 | DI.VRAD_ITS ---
PROCEDURE INFORMATION: Exam: XR Chest Exam date and time: 09/16/2022 6:59 PM Age: 81 years old Clinical indication: Shortness of breath TECHNIQUE: Imaging protocol: Radiologic exam of the chest. Views: 2 views. Total images: 2 COMPARISON: CR XR CHEST 2V PA LATERAL 03/15/2022 3:30 PM FINDINGS: Tubes, catheters and devices: Dual lead pacemaker. Lungs: Lungs appear clear. No visible consolidation. No pulmonary masses. Pulmonary vascularity is normal. Pleural spaces: No pleural effusion or pneumothorax. Heart/Mediastinum: Heart size is normal. Bones/joints: Bilateral proximal femoral fenestrated plates and screws. Degenerative change of the cervical spine. No acute osseous abnormalities. Organs: Cholecystectomy. IMPRESSION: No acute cardiopulmonary disease. Dictated and Authenticated by: Cristina Rios MD. Ordering:LAURA Wynn MD
--- NOTE | 2022-09-16 20:06 | W.PM.HP.N ---
Date of service: 09/16/22 Time of Service: 20:06 Assessment and Plan Assessment and plan (1) Increasing shortness of breath: Start date: 09/16/22 Status: Acute Assessment and plan: This is an 81-year-old lady who has intermittent shortness of breath and symptoms of lightheadedness and blurred vision when her pacemaker is pacing. She has had these sensations intermittently but worsening recently with interrogation of her pacemaker possible and being observed on cardiac monitoring with trending labs until the morning. If interrogation of the pacemaker shows no malfunction further evaluation as outpatient can be undertaken with close monitoring by cardiology with the symptoms only worsening recently since pacemaker was placed less than a year ago. She appears very anxious which may be adding to her symptoms. (2) Episodic lightheadedness: Status: Acute Assessment and plan: Patient has episodic lightheadedness with visual changes as stated usually when her pacemaker is basic. She appeared to be able to feel when this is happening. This does make her anxious. (3) Visual changes: Status: Acute Assessment and plan: Associated lightheadedness and pacemaker pacing. Interrogation of pacemaker to ensure that it is functioning appropriately. (4) Pacemaker: Status: Chronic Assessment and plan: Patient had complete heart block with pacemaker placed about a year ago. She has been having intermittent symptoms as above but these are worsening. Interrogation of pacemaker should be accomplished before discharge with follow-up scheduled with cardiology. (5) Interstitial lung disease: Status: Chronic Assessment and plan: Patient on medical therapy which will be continued with follow-up with pulmonology as scheduled. Patient appears to have recently been placed on cephalexin which will be continued and reconciled with pharmacy in the morning. (6) Depression: Status: Chronic Assessment and plan: On medical therapy with poor coping. (7) Essential hypertension: Status: Chronic Assessment and plan: Continue outpatient medical therapy. Potassium repletion if needed with patient on hydrochlorothiazide. (8) Hyperlipidemia: Status: Chronic Assessment and plan: Continue outpatient therapy with statin. Qualifiers: Hyperlipidemia type: mixed hyperlipidemia Qualified Code(s): E78.2 - Mixed hyperlipidemia History of Present Illness History of Present Illness Chief Complaint: Lightheadedness and dizziness with pacemaker pacing Narrative: This is an 81-year-old female patient who had a pacemaker placed within this last year for complete heart block. Since that time she has been having problems with feeling dizzy and lightheaded at times especially when her pacemaker is pacing. She has been seen by her PCP and walk-in clinic for this problem and also was slightly more short of breath with a chronic history of severe asthma and interstitial lung disease. She also stated that she was having some slight diaphoresis. She is not having chest pain and did not feel as if she was going to faint with her symptoms. She mentioned that she may have had slightly altered mental status and at one time thought she was having a stroke because of her visual blurriness bilaterally. She is very anxious and does live alone. She was seen in the ED with negative cardiac evaluation but her pacemaker could not be interrogated therefore she was admitted for observation and telemetry. Her labs will be trended as well. She otherwise had no acute complaints. EKG was unrevealing per ED physician. Troponins x2 were negative. Patient is a full code. Review of Systems Narrative: 13 point review of systems otherwise unrevealing or stable. PFSH All Active Problems (Updated 09/17/22 @ 06:30 by Gerardo Owens) Visual changes (Acute) Episodic lightheadedness (Acute) Increasing shortness of breath (Acute) Pacemaker (Chronic) [employer] [employer] [place] [facility] [place]. RH Interstitial lung disease (Chronic) a. due to h/o psittacosis approximately 14-15 years ago Depression (Chronic) a. well controlled on SSRI PUD (peptic ulcer disease) (Chronic) Overweight (Chronic) Fibrocystic breast (Chronic) H/O surgical procedure (Chronic) a. Bilateral shoulder surgeries b. Right medial meniscus repair c. Rahman's cyst surgery d. Cataract surgery x 2 e. S/p Cholecystectomy f. S/p hysterectomy for benign reasons g. s/p breast biopsy h. 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 Follow-up in approximately 2 weeks for use of dural Jac as a Visco supplement prior to her trip to [facility]n [place]. Polyp of colon (Chronic) Hiatal hernia (Acute) Fracture, pelvis closed (Chronic) Left lumbar radiculopathy (Acute) COVID-19 (Acute) Onset~03/2021, Onset 05/26/22 Urinary tract infection (Acute) Liver cyst (Acute) Medical History Acute bacterial bronchitis Arthritis of left knee s/p total knee Asthma Gastroparesis GERD (gastroesophageal reflux disease) H/O: pneumonia Headache Hypercholesterolemia Insomnia Osteoarthritis Peptic ulcer Unilateral inguinal hernia Surgical History Arthroscopy, Shoulder LEFT Biopsy of breast (~2005) LEFT Cholecystectomy Extraction of cataract 06/11/13; RIGHT 06/26/13; LEFT FX ARM (02/15/14) PLATE AND SCREWS History of cataract removal with insertion of prosthetic lens Hysterectomy, Laproscopic 1 ovary remains Status post arthroscopy of shoulder Status post breast biopsy Status post cholecystectomy Status post laparoscopic hysterectomy Status post right knee replacement Family History Mother Diabetes Essential hypertension Depression Heart disease Hyperlipidemia Father , WW II at age 24. No problems noted. Brother Diabetes Essential hypertension Hyperlipidemia Neoplasm MELANOMA Grandfather Diabetes Essential hypertension Grandfather Essential hypertension Heart disease Hyperlipidemia Grandmother Essential hypertension Neoplasm Stroke Grandmother Diabetes Blood disease Neoplasm COLON FAMILY HISTORY Myocardial infarction Son Substance abuse Depression Hyperlipidemia Daughter Diabetes Depression Hyperlipidemia Asthma Social History Smoking/Tobacco Use Status: Never Smoking risk assessment performed?: Yes Alcohol Intake: current Alcohol Intake frequency: a few times a month Alcohol type: hard liquor Drug use: Never Substance use type: does not use Caregiver/Support person: No Household members: none Housing: other Do you need help understanding health information?: Never Pets and animals: No Current gender identity: female What is your relationship status?: How often do you talk on the phone with friends or family?: three or more times per week How often do you get together with friends or relatives?: decline to answer How often do you attend denominational or hinduism services?: decline to answer Do you belong to any clubs or organized social groups?: yes Panel score (0-1 are the most socially isolated patients): 2 What type of physical activity do you participate in: walking Janet/Oriental Orthodox: None Special janet needs: No Seatbelt use: always Drive intox or ride w/intox coach tour driver: No Do you feel safe at home: Yes Do you feel safe in your relationship?: Yes Additional Social history: 6years ago. Lives by self. Meds Allergies and Home Medications Allergies Allergy/AdvReac Type Severity Reaction Status Date / Time adhesive Allergy Severe SKIN RASH Verified 09/16/22 18:18 Sulfa (Sulfonamide Allergy Intermediate ITCHING Verified 09/16/22 18:18 Antibiotics) losartan Allergy Unknown SWELLING, Verified 09/16/22 18:18 ITCHING hydrocodone AdvReac Itching Verified 09/16/22 18:18 with high doses Home Medications Medication Instructions Recorded Confirmed Type fluticasone propionate 50 2 spry NS DAILY PRN 06/07/13 09/16/22 History mcg/actuation nasal spray,suspension (Flonase) esomeprazole magnesium 40 mg 20 mg PO BID #180 tab-caps 07/31/19 09/16/22 Rx capsule,delayed release (Nexium) albuterol sulfate 90 mcg/actuation 2 puff inhalation QID PRN asthma 12/16/21 09/16/22 Rx aerosol inhaler (ProAir HFA) #3 ea hydrochlorothiazide 25 mg tablet 25 mg PO DAILY #90 tabs 03/10/22 09/16/22 Rx fluoxetine 20 mg capsule (Prozac) 20 mg PO DAILY #90 caps 05/31/22 09/16/22 Rx valsartan 80 mg tablet 80 mg PO DAILY #90 tabs 05/31/22 09/16/22 Rx fluticasone 250 mcg-salmeterol 50 1 inh inhalation BID 07/13/22 09/16/22 History mcg/dose blistr powdr for inhalation (Wixela Inhub) fluticasone fur. 200 mcg-umeclid 1 inh inhalation DAILY #60 ea 08/09/22 09/16/22 Rx 62.5 mcg-vilant 25 mcg inhalat.powder (Trelegy Ellipta) simvastatin 40 mg tablet (Zocor) 40 mg PO DAILY #90 tab-caps 08/27/22 09/16/22 Rx albuterol sulfate 1.25 mg/3 mL 1.25 mg (3 mL) inhalation QID PRN 09/06/22 09/16/22 Rx solution for nebulization shortness of breath or wheezing #540 mL cefpodoxime 200 mg tablet 200 mg PO BID #14 tabs 09/06/22 09/16/22 Rx prednisone 10 mg tablet 10 mg PO DIRECTED #40 tabs 09/06/22 09/16/22 Rx montelukast 10 mg tablet 10 mg PO DAILY #90 tabs 09/09/22 09/16/22 Rx (Singulair) Exam Narrative Exam Narrative: General: Patient appears appropriate for age, pressured speech with appearance of being anxious the patient went out about her pacemaker. She is alert and oriented x3. She had no acute distress. HEENT: Normocephalic, eyes with pupils equal and reactive light symmetrically, extraocular movement intact and sclera anicteric. Oropharynx with moist mucosa. Neck: Supple without JVD. Back: Normal posture without CVA tenderness. Lungs: Fair aeration clear to auscultation percussion. Chest: Palpable subcutaneous pacemaker left upper chest, symmetrical movement and no tenderness to palpation of the sternum. Heart: Regular rate and rhythm with no appreciable murmur or gallop. Breast: Exam deferred. Abdomen: Obese contour, soft nontender to palpation with no palpable hepatosplenomegaly. Bowel sounds positive all quadrants. Genitalia/rectal: Exam deferred. Extremities: Without clubbing, cyanosis or grossly pitting edema. Peripheral pulses intact with good cap refill. Skin: Normal color, warm and dry. Neuro: Cranial nerves II through XII gross intact, no focalizing motor deficits. No tremor. Psych: Anxious affect but normal mood. No abnormal thought processes. Remote and recent memory grossly intact. Results Imaging Imaging Studies: Exam: XR Chest Exam date and time: 09/16/2022 6:59 PM Age: 81 years old Clinical indication: Shortness of breath TECHNIQUE: Imaging protocol: Radiologic exam of the chest. Views: 2 views. Total images: 2 COMPARISON: CR XR CHEST 2V PA LATERAL 03/15/2022 3:30 PM FINDINGS: Tubes, catheters and devices: Dual lead pacemaker. Lungs: Lungs appear clear. No visible consolidation. No pulmonary masses. Pulmonary vascularity is normal. Pleural spaces: No pleural effusion or pneumothorax. Heart/Mediastinum: Heart size is normal. Bones/joints: Bilateral proximal femoral fenestrated plates and screws. Degenerative change of the cervical spine. No acute osseous abnormalities. Organs: Cholecystectomy. IMPRESSION: No acute cardiopulmonary disease. Labs 09/17/22 03:50 09/17/22 03:50 Labs: Laboratory Results - last 24 hr 09/16/22 09/16/22 09/16/22 18:15 18:15 18:15 WBC 9.85 RBC 4.81 Hgb 14.7 Hct 42.5 MCV 88 MCH 30.6 MCHC 34.6 RDW 12.7 Plt Count 271 MPV 10.0 Immature Gran % 4.6 Neutrophils % 68.9 Lymphocytes % 19.1 Monocytes % 6.3 Eosinophils % 0.4 Basophils % 0.7 Nucleated RBC % 0.0 Absolute Neutrophils 6.79 H Absolute Lymphocytes 1.88 Absolute Monocytes 0.62 Absolute Eosinophils 0.04 Absolute Basophils 0.07 D-Dimer 325 Sodium 137 Potassium 3.7 Chloride 100 Carbon Dioxide 25.8 Anion Gap 11.2 H BUN 27 H Creatinine 1.1 H Est GFR (CKD-EPI 2020) 50.80 Glucose 152 H Calcium 9.2 Magnesium 1.9 Troponin I < 50 Last Vital Signs Temp 36.9 C 09/16/22 17:26 Pulse 84 09/16/22 17:26 Resp 15 09/16/22 18:22 BP 169/90 H 09/16/22 17:26 Pulse Ox 97 09/16/22 17:26 PAWSS Have you Been Recently Intoxicated or Drunk Within the Last 30 days?: No Have you Ever Experienced Previous Episodes of Alcohol Withdrawal?: No Have you ever Experienced Withdrawal Seizures?: No Have you ever Experienced Delirium Tremens(DT)s?: No Have you ever undergone Alcohol Rehabilitation Treatment (i.e, inpt ot outpatient treatment programs)?: No Have you ever Experienced Blackouts?: No Have you ever Combined Alcohol with other Downers within the last 90 days?: No Have you ever Combined Alcohol with any other Substance of Abuse during the last 90 days?: No Result: 0 Time Spent Time spent with Patient: >75 minutes Time was spent: preparing to see the patient(eg.review tests), [facility], ordering medications,tests, procedures, referring, communicating with other health child care leader, indepentently interpreting results, counseling the patient and care coordination
[2022-09-16 22:00] LABS: Troponin I < 50 ng/L (<or=60)
[2022-09-17] VITALS (24 sets, daily range): BP systolic 77–154; BP diastolic 54–80; PULSE 66–83; RESP 12–22; TEMP 36–37.2; O2SAT 93–96
--- NOTE | 2022-09-17 01:43 | NUR.NOTE ---
Nursing Note: Danielle leaving AMA,aware that she can return and has been advised not to leave per MD. Patient is vitally stable at this time
[2022-09-17 04:06] LABS: HCT 41.3 % (36.0-46.0); HGB 14.2 g/dL (11.2-15.7); MCH 30.9 pg (27.0-33.0); MCHC 34.4 % (32.0-36.0); MCV 90 fL (80-95); MPV 9.9 fL (8.0-11.0); Platelet Count 241 10^3/uL (130-400); RDW 12.8 % (11.7-14.6); RDW-SD 42.1 fL
[2022-09-17 04:17] LABS: ALT 36 U/L (14-59); AST 16 U/L (15-37); Albumin 3.8 g/dL (3.4-5.0); Alkaline Phosphatase 40 U/L (46-116); BUN 30 mg/dL (7-18); Bilirubin, Total 1.1 mg/dL (0.2-1.0); CREATININE 1.1 mg/dL (0.55-1.02); Calcium 8.7 mg/dL (8.5-10.1); Chloride 103 mmol/L (98-107); Glucose 128 mg/dL (74-106); Magnesium 2.1 mg/dL (1.8-2.4); Potassium 3.5 mmol/L (3.5-5.1); Sodium 141 mmol/L (136-145); Total Protein 6.7 g/dL (6.4-8.2)
[2022-09-17 04:20] LABS: Troponin I < 50 ng/L (<or=60)
[2022-09-17 07:49] LABS: Troponin I < 50 ng/L (<or=60)
[2022-09-17] MEDS: Lactated Ringers 250 ML 100 ML IV (07:52)
[2022-09-17] MEDS: Cefpodoxime 200 MG TAB PO ×2 (08:38→19:47)
[2022-09-17] MEDS: Potassium Chloride 10 MEQ CAPCR 20 MEQ PO (08:38)
[2022-09-17] MEDS: FLUoxetine 20 MG CAP PO (08:39)
[2022-09-17] MEDS: Enoxaparin 40 MG/0.4 ML SYR SC (08:39)
--- NOTE | 2022-09-17 09:09 | PGE_ITS ---
Date of Service Date of service: 09/17/22 Time of Service: 09:10 Assessment and Plan Assessment and plan (1) Episodic lightheadedness: Status: Acute Assessment and plan: likely not related to her pacer. Overnight she remained V paced, she still has P waves but was V paced w/ no bradycardia or tachycardia issues. I think she is over medicated on her BP meds. I will hold her valsartan and HCTZ and give her iv fluids. (2) Orthostatic hypotension: Status: Acute Assessment and plan: hold Valsartan and HCTZ, give judicious fluid bolus and repeat orthostatic bp this afternoon; probably dc home later today w/ reduced dose of valsartan and dc HCTZ (3) Pacemaker: Status: Chronic Assessment and plan: We will attempt to interrogate her pacemaker but if unable to do so then she will need to follow-up as an outpatient with her EP director of infection control Dr. Franc Nicholson at [facility]. (4) Prerenal azotemia: Status: Acute Assessment and plan: Patient presented with elevated BUN out of proportion to her creatinine with a BUN of 30 creatinine 1.1. Her baseline level last March was 20 and 1.0. We will withhold her hydrochlorothiazide and valsartan and give her judicious IV fluid bolus and recheck her orthostatics. Subjective Subjective Interval history since last seen: Patient was admitted last night after referred to the ED by [facility]. Patient has been complaining of fatigue and orthostatic lightheadedness, and trouble w/ her vision w/ focusing. No CP or palpitations or dyspnea. She says that they have had trouble regulating her BP and her BP has been labile w/ high's and lows. Attempt was made at interrogating her pacemaker last night but the ED was unsuccessful. This morning her orthostatic BP was checked and she was grossly orthostatic (lying 120/60, pulse 60; sitting 116/77, pulse 72; standing 77/54, pulse 79). Exam Narrative Exam Narrative: Pleasant overweight female who is totally alert and oriented person place and circumstance no acute distress. Neck veins nondistended Lungs are clear to auscultation Heart is regular rate and rhythm without murmur rub or gallop Abdomen soft and nontender Lower extremities without peripheral cyanosis or edema Objective Last Vital Signs Temp 36.7 C 09/17/22 08:17 Pulse 69 09/17/22 08:17 Resp 16 09/17/22 08:17 BP 120/60 09/17/22 08:17 Pulse Ox 93 09/17/22 08:17 Laboratory Results - last 24 hr 09/16/22 09/16/22 09/16/22 18:15 18:15 18:15 WBC 9.85 RBC 4.81 Hgb 14.7 Hct 42.5 MCV 88 MCH 30.6 MCHC 34.6 RDW 12.7 Plt Count 271 MPV 10.0 Immature Gran % 4.6 Neutrophils % 68.9 Lymphocytes % 19.1 Monocytes % 6.3 Eosinophils % 0.4 Basophils % 0.7 Nucleated RBC % 0.0 Absolute Neutrophils 6.79 H Absolute Lymphocytes 1.88 Absolute Monocytes 0.62 Absolute Eosinophils 0.04 Absolute Basophils 0.07 D-Dimer 325 Sodium 137 Potassium 3.7 Chloride 100 Carbon Dioxide 25.8 Anion Gap 11.2 H BUN 27 H Creatinine 1.1 H Est GFR (CKD-EPI 2020) 50.80 Glucose 152 H Calcium 9.2 Magnesium 1.9 Total Bilirubin AST ALT Alkaline Phosphatase Troponin I < 50 Total Protein Albumin 09/16/22 09/17/22 09/17/22 21:37 03:50 03:50 WBC RBC Hgb Hct MCV MCH MCHC RDW Plt Count MPV Immature Gran % Neutrophils % Lymphocytes % Monocytes % Eosinophils % Basophils % Nucleated RBC % Absolute Neutrophils Absolute Lymphocytes Absolute Monocytes Absolute Eosinophils Absolute Basophils D-Dimer Sodium 141 Potassium 3.5 Chloride 103 Carbon Dioxide 28.0 Anion Gap 10.0 BUN 30 H Creatinine 1.1 H Est GFR (CKD-EPI 2020) 50.80 Glucose 128 H Calcium 8.7 Magnesium 2.1 Total Bilirubin 1.1 H AST 16 ALT 36 Alkaline Phosphatase 40 L Troponin I < 50 < 50 Total Protein 6.7 Albumin 3.8 09/17/22 09/17/22 03:50 07:02 WBC 10.90 H RBC 4.60 Hgb 14.2 Hct 41.3 MCV 90 MCH 30.9 MCHC 34.4 RDW 12.8 Plt Count 241 MPV 9.9 Immature Gran % Neutrophils % Lymphocytes % Monocytes % Eosinophils % Basophils % Nucleated RBC % Absolute Neutrophils Absolute Lymphocytes Absolute Monocytes Absolute Eosinophils Absolute Basophils D-Dimer Sodium Potassium Chloride Carbon Dioxide Anion Gap BUN Creatinine Est GFR (CKD-EPI 2020) Glucose Calcium Magnesium Total Bilirubin AST ALT Alkaline Phosphatase Troponin I < 50 Total Protein Albumin PAWSS Have you Been Recently Intoxicated or Drunk Within the Last 30 days?: No Have you Ever Experienced Previous Episodes of Alcohol Withdrawal?: No Have you ever Experienced Withdrawal Seizures?: No Have you ever Experienced Delirium Tremens(DT)s?: No Have you ever undergone Alcohol Rehabilitation Treatment (i.e, inpt ot outpatient treatment programs)?: No Have you ever Experienced Blackouts?: No Have you ever Combined Alcohol with other Downers within the last 90 days?: No Have you ever Combined Alcohol with any other Substance of Abuse during the last 90 days?: No Positive Blood Alcohol level on Presentation? [PCS.BAL]: No Evidence of Increased Autonomic Activity (i.e. HR>120, tremor, sweating, agitation, nausea)?: No Result: 0 Time Spent with Patient Time Spent with Patient: 25-34 minutes Time was spent: preparing to see the patient(eg.review tests), obtaining and/or reviewing separately otained hiistory, ordering medications,tests, procedures, referring, communicating with other health housekeeper caregiver, indepentently interpreting results, counseling the patient and care coordination
[2022-09-17] MEDS: Acetaminophen 325 MG TAB PO (09:55)
[2022-09-17] MEDS: Esomeprazole 20 MG CAPCR PO ×2 (11:31→15:58)
[2022-09-17] MEDS: Budesonide/Formoterol 160/4.5 6 GM 60 PUFF INH IH ×2 (11:45→20:10)
[2022-09-17] MEDS: Lactated Ringers 250 ML IV (12:46)
--- NOTE | 2022-09-17 15:32 | INITIAL_ITS ---
Date of service: 09/17/22 Time of Service: 15:32 Care Management Initial Assmt Initial Assessment REASON FOR HOSPITALIZATION:: Sent by PCP. Dyspnea, interstitial lung disease HB PREVIOUS FUNCTIONAL STATUS/SOCIAL/FAMILY SUPPORTS:: Teri, a , lives alone in a mobile home in a senior community in [place], [place]. She has many close friends and before the pandemic, enjoyed line dancing and going out with her friends. CURRENT FUNCTIONAL STATUS:: Gela remains inpatient, her pacer was unable to be interrogated in the ED last evening; MD reports attempts will be made again today-if not she will follow up as outpatient. ADVANCE DIRECTIVES:: None on file. Has patient been provided with info about the portal/API?: Yes Did the patient sign up for the portal?: Yes CODE STATUS:: Full Code INSURANCE COVERAGE / FINANCIAL ISSUES:: Medicare. [employer] CURRENT HOME/COMMUNITY SERVICES/EQUIPMENT:: None currently PRIMARY CARE PHYSICIAN:: Kingsley Werner POTENTIAL DISCHARGE NEEDS:: Follow up with PCP and discharge plan of care PATIENT/FAMILY EDUCATION NEEDS:: Discharge plan, limitations, follow up plan, Ask Me Three. ANTICIPATED BARRIERS TO DISCHARGE:: None identified. TRANSPORTATION:: Via private vehicle with family PLAN:: Anticipate Gela will discharge home when medically ready. She will follow up with her PCP and discharge plan of care. CM will continue to support patient, family and discharge planning needs and concerns. PFSH All Active Problems (Updated 09/17/22 @ 09:14 by Armando Perdomo MD) Prerenal azotemia (Acute) Orthostatic hypotension (Acute) Visual changes (Acute) Episodic lightheadedness (Acute) Increasing shortness of breath (Acute) Pacemaker (Chronic) [employer] placed at [facility] by Dr. Nicholson 07/31/21. RH Interstitial lung disease (Chronic) a. due to h/o psittacosis approximately 14-15 years ago Depression (Chronic) a. well controlled on SSRI PUD (peptic ulcer disease) (Chronic) Overweight (Chronic) Fibrocystic breast (Chronic) H/O surgical procedure (Chronic) a. Bilateral shoulder surgeries b. Right medial meniscus repair c. Rahman's cyst surgery d. Cataract surgery x 2 e. S/p Cholecystectomy f. S/p hysterectomy for benign reasons g. s/p breast biopsy h. 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 Follow-up in approximately 2 weeks for use of dural Jac as a Visco supplement prior to her trip to [facility]n [place]. Polyp of colon (Chronic) Hiatal hernia (Acute) Fracture, pelvis closed (Chronic) Left lumbar radiculopathy (Acute) COVID-19 (Acute) Onset~03/2021, Onset 05/26/22 Urinary tract infection (Acute) Liver cyst (Acute) Medical History Acute bacterial bronchitis Arthritis of left knee s/p total knee Asthma Gastroparesis GERD (gastroesophageal reflux disease) H/O: pneumonia Headache Hypercholesterolemia Insomnia Osteoarthritis Peptic ulcer Unilateral inguinal hernia Surgical History Arthroscopy, Shoulder LEFT Biopsy of breast (~2005) LEFT Cholecystectomy Extraction of cataract 06/11/13; RIGHT 06/26/13; LEFT FX ARM (02/15/14) PLATE AND SCREWS History of cataract removal with insertion of prosthetic lens Hysterectomy, Laproscopic 1 ovary remains Status post arthroscopy of shoulder Status post breast biopsy Status post cholecystectomy Status post laparoscopic hysterectomy Status post right knee replacement Family History Mother Diabetes Essential hypertension Depression Heart disease Hyperlipidemia Father , WW II at age 24. No problems noted. Brother Diabetes Essential hypertension Hyperlipidemia Neoplasm MELANOMA Grandfather Diabetes Essential hypertension Grandfather Essential hypertension Heart disease Hyperlipidemia Grandmother Essential hypertension Neoplasm Stroke Grandmother Diabetes Blood disease Neoplasm COLON FAMILY HISTORY Myocardial infarction Son Substance abuse Depression Hyperlipidemia Daughter Diabetes Depression Hyperlipidemia Asthma Social History Smoking/Tobacco Use Status: Never Smoking risk assessment performed?: Yes Alcohol Intake: current Alcohol Intake frequency: a few times a month Alcohol type: hard liquor Drug use: Never Substance use type: does not use Caregiver/Support person: No Household members: none Housing: other Do you need help understanding health information?: Never Pets and animals: No Current gender identity: female What is your relationship status?: How often do you talk on the phone with friends or family?: three or more times per week How often do you get together with friends or relatives?: decline to answer How often do you attend temple or holiness services?: decline to answer Do you belong to any clubs or organized social groups?: yes Panel score (0-1 are the most socially isolated patients): 2 What type of physical activity do you participate in: walking Janet/Evangelical: None Special janet needs: No Seatbelt use: always Drive intox or ride w/intox 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 Lives by self.
--- NOTE | 2022-09-17 17:16 | CHAPLAIN ---
I had a short visit with Gela. She was resting in bed. She said she's in touch with her kids, who don't live nearby, but she has many friends closer who are checking in with her.
--- NOTE | 2022-09-17 17:48 | PT.INIE ---
Date of service: 09/17/22 Time of Service: 17:11 PT Notes Visit Reasons: Dyspnea. Interstitial Lung Disease, HB Physical Therapy Inpatient Initial Evaluation Date: 09/18/2022 Referring Doctor: Armando Pa MD PT Orders: PT CONSULT: D/C Non PT dependent. Please eval for vertigo. Precautions: Fall. Standard. Activity as tolerated. Patient Profile/Admitting Diagnosis: Teri is an 81-year-old female with interstitial lung disease and history of complete heart block s/p pacemaker placement in August of 2021 who presents today with episodic lightheadedness with visual changes, orthostatic hypotension, and prerenal azotemia. PMHX: All Active Problems?(Updated 09/17/22 @ 06:30 by Gerardo Owens) Visual changes (Acute) Episodic lightheadedness (Acute) Increasing shortness of breath (Acute) Pacemaker (Chronic) [employer] placed at [facility] by Dr. Nicholson 07/31/21. RH Interstitial lung disease (Chronic) a.? due to h/o psittacosis approximately 14-15 years ago Depression (Chronic) a.? well controlled on SSRI PUD (peptic ulcer disease) (Chronic) Overweight (Chronic) Fibrocystic breast (Chronic) H/O surgical procedure (Chronic) a.? Bilateral shoulder surgeries b.? Right medial meniscus repair c.? Rahman's cyst surgery d.? Cataract surgery x 2 e.? S/p Cholecystectomy f.? S/p hysterectomy for benign reasons g.? s/p breast biopsy h.? 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 Follow-up in approximately 2 weeks for use of dural Jac as a Visco supplement prior to her trip to [facility]n [place]. Polyp of colon (Chronic) Hiatal hernia (Acute) Fracture, pelvis closed (Chronic) Left lumbar radiculopathy (Acute) COVID-19 (Acute) Onset~03/2021, Onset 05/26/22 Urinary tract infection (Acute) Liver cyst (Acute) Medical History? Acute bacterial bronchitis Arthritis of left knee s/p total knee Asthma Gastroparesis GERD (gastroesophageal reflux disease) H/O: pneumonia Headache Hypercholesterolemia Insomnia Osteoarthritis Peptic ulcer Unilateral inguinal hernia Surgical History? Arthroscopy, Shoulder LEFT Biopsy of breast (~2005) LEFT Cholecystectomy Extraction of cataract 06/11/13; RIGHT 06/26/13; LEFT FX ARM (02/15/14) PLATE AND SCREWS History of cataract removal with insertion of prosthetic lens Hysterectomy, Laproscopic 1 ovary remains Status post arthroscopy of shoulder Status post breast biopsy Status post cholecystectomy Status post laparoscopic hysterectomy Status post right knee replacement Social History/Home Situation: Lives alone in a private home. Independent with all aspects of ADLs prior to admission without the need for any assistive amatory device nor adaptive equipment. Equipment Owned/DME: None Subjective: Patient states that she has not felt well since her pacemaker placement last August 2021. She elaborates that she has had intermittent issues with lightheadedness for about a year now. She clarifies that the vision problem she has is that of impaired ability to focus, however she indicates that she does not see double, in fact she was able to drive to the hospital to be admitted. Reports that she gets lightheaded when she attempting to walk short distance. She denies any symptoms with head turning nor with any positional changes as she showed this provider during the session. She adds that her blood pressure control has been problematic and may be the cause of said lightheadedness. She verbalizes that the vertigo symptoms she had in the past years are different from what she is experiencing right now. Onset: has been intermittently lightheaded since pacemeaker placement a year ago Quality: dizzy when walking, unable to focus vision Duration: intermittent for the past year now Previous episodes: since onset after pacer placement Exacerbating factors: walking Nausea/Vomiting: No Hearing Loss: None Tinnitus: None Fullness in ear: None Imbalance: None Red Flags: Visual changes--Yes, duff snot see double but is unable to focus Dysphagia or Dysarthria: None Facial Weakness: None Incoordination: None Objective: General Observation: Sitting at edge of bed, just got done lunch Mental Status: Alert and oriented as to person, place, time, and purpose. Able to pay attention, focus, and respond appropriately. Pain: None Vital Signs: With orthostatic hypotension per Charge Nurse Katherine, merary VS notes ROM: Cervical ROM: WFL, no limitations seen Right Upper Extremity: Shoulder Flexion WFL. Shoulder abduction WFL. Elbow flexion WFL. Wrist flexion WFL. Functional opening and closing of hand WFL. Left Upper Extremity: Shoulder Flexion lacks the last 25% of AROM due to pre-existing shoulder problem. Shoulder abduction lacks the last 25% of AROM due to pre-existing shoulder problem. Elbow flexion WFL. Wrist flexion WFL. Functional opening and closing of hand WFL. Right Lower Extremity: Hip flexion WFL. Hip abduction WFL. Knee flexion WFL. Ankle dorsiflexion WFL. Ankle plantarflexion WFL. Left Lower Extremity: Hip flexion WFL. Hip abduction WFL. Knee flexion WFL. Ankle dorsiflexion WFL. Ankle plantarflexion WFL. Strength: Right Upper Extremity: Shoulder flexors 4/5. Shoulder abductors 4/5. Elbow flexors 5/5. Elbow extensors 5/5. Credit And Collections Representative strong. Left Upper Extremity: Shoulder flexors 3-/5. Shoulder abductors 3-/5. Elbow flexors 5/5. Elbow extensors 5/5. Credit And Collections Representative strong. Right Lower Extremity: Hip flexors 5/5. Hip abductors 5/5. Knee flexors 5/5. Knee extensors 5/5. Ankle dorsiflexors 5/5. Ankle plantarflexors 5/5. Left Lower Extremity: Hip flexors 5/5. Hip abductors 5/5. Knee flexors 5/5. Knee extensors 5/5. Ankle dorsiflexors 5/5. Ankle plantarflexors 5/5. Bed Mobility/Transfers: Rolling independent Supine to sit independent Sit to supine independent Sit to stand independent Stand to sit independent Bed to reclining chair independent Reclining chair to bed independent Gait: Independent inside room without an assistive device. Still reports persistent lightheadedness of lesser magnitude compared to day of admission, slow raiza. Balance: Static Sitting: Normal Dynamic Sitting: Normal Static Standing: Good Dynamic Standing: Fair Special Tests: Mobility Limitations Standardized Measure [facility] AM-PAC 6 clicks Basic Mobility Inpatient Short Form: Raw Score: 24 CMS Score: 0% deficit NEURO: Gavin-Hallpike manuever: Negative on B sides Supine Head Roll Test: Negative on B sides Rhomberg Mary Jane: Negative Fine Motor: Intact Visual Tracking: Intact Informed Consent/Education: Patient was instructed in purpose of PT consult and plan of care. Agreeable to proceed with established PT POC to achieve personal goals. Assessment: Patient does not demonstrate BPPV characteristics. Symptoms may be related to presyncopal episode related to pacemaker functionality. Will plan to monitor patient 3x/week during the weekdays to facilitate independence with hallway ambulation without AD as tolerated while on admission. Patient presents with clinical signs and symptoms consistent with current/admitting diagnoses that have resulted to mobility limitations, gait instability, generalized weakness, and overall ADL decline as demonstrated by the following impairment level findings: 1. Lightheadedness with long-distance ambulation Impairments are contributing to the following functional limitations: 2. Difficulty with ambulation Patient is assessed as a 38600 low complexity based on the following: History: [id number] with past medical history as indicated above Examination: As above Presentation: Evolving Decision Makin low complexity Goals: Goals X1 week 1. Independent gait on level surface with use of no AD for at least 1000 feet without report of pain nor dyspnea 2. Independent stair negotiation while holding onto B rails for at least 3 steps without report of pain nor dyspnea 3. Independent with home exercise program 4. Good static and dynamic standing balance/tolerance Plan of Care/Treatment Plan: 1x/day, 3 days/week x 1 week. Plan of care has been reviewed with the BELT LOOP MAKER providing the service under Physical Therapy direction. Initiate Physical Therapy intervention for pain management as needed, strengthening, bed mobility, transfers, gait, stairs, balance training, and use of assistive device. DISCHARGE RECOMMENDATIONS: [X] Home with no service. Home when medically cleared by hospitalist. [] Home with services [specify] [] Home with outpatient PT [] [] SNF for continued rehabilitation [] [] [facility] Care [] [] SNF versus LTC based on ability to participate and progress [] TREATMENT CODE/TIME: 85495 x 33 minutes beginning at 17:11 PM. Thank you for the opportunity to participate in the care of this patient. Zaria Lee PT, DPT, CLT [facility] [place], [place]
[2022-09-17] MEDS: Simvastatin 40 MG TAB PO (21:06)
[2022-09-17] MEDS: Montelukast 10 MG TAB PO (21:06)
[2022-09-18] VITALS (13 sets, daily range): BP systolic 109–174; BP diastolic 62–100; PULSE 63–91; RESP 16–20; TEMP 36.1–37.2; O2SAT 93–97
[2022-09-18] MEDS: Esomeprazole 20 MG CAPCR PO ×2 (07:24→15:55)
[2022-09-18] MEDS: Budesonide/Formoterol 160/4.5 6 GM 60 PUFF INH IH ×2 (07:46→20:20)
[2022-09-18 07:59] LABS: Anion Gap 6.8 mmol/L (3-11); BUN 25 mg/dL (7-18); CO2 26.2 mmol/L (21.0-32.0); Calcium 8.6 mg/dL (8.5-10.1); Chloride 104 mmol/L (98-107); Estimated GFR 56.95 (mL/min/1.73m2); Glucose 123 mg/dL (74-106); Potassium 3.5 mmol/L (3.5-5.1); Sodium 137 mmol/L (136-145)
[2022-09-18] MEDS: Potassium Chloride 10 MEQ CAPCR 20 MEQ PO (08:14)
[2022-09-18] MEDS: FLUoxetine 20 MG CAP PO (08:14)
[2022-09-18] MEDS: Cefpodoxime 200 MG TAB PO (08:14)
[2022-09-18] MEDS: Enoxaparin 40 MG/0.4 ML SYR SC (08:15)
[2022-09-18] MEDS: Docusate Sodium 100 MG CAP PO (15:55)
--- NOTE | 2022-09-18 16:03 | W.PM.PROGNOT ---
Date of Service Date of service: 09/18/22 Time of Service: 16:04 Assessment and Plan Assessment and plan (1) Orthostatic hypotension: Status: Acute Assessment and plan: continues to have symptoms after IV hydration. ensure TEDS when out of bed continue to hold Valsartan and HCTZ, consider midodrine if continues to remain symptomatic. fall risk change to inpatient status for ongoing medication adjustment and monitoring. (2) Urinary tract infection: Status: Acute Assessment and plan: has been on cefpodoxime since september 06, urine culture grew less than 10,000 colony of gram-negative rods--will stop treatment (3) Pacemaker: Status: Chronic Assessment and plan: We will attempt to interrogate her pacemaker but if unable to do so then she will need to follow-up as an outpatient with her EP commercial sales representative Dr. Franc Nicholson at [facility]. unlikely the cause of her symptoms (4) Prerenal azotemia: Status: Resolved Assessment and plan: Patient presented with elevated BUN out of proportion to her creatinine with a BUN of 30 creatinine 1.1. Her baseline level last March was 20 and 1.0. continue to withhold her hydrochlorothiazide and valsartan and given IV fluid bolus continue to check orthostatics. (5) DVT prophylaxis: Status: Acute Assessment and plan: enoxaparin, TEDS (6) Discharge planning issues: Status: Acute Assessment and plan: change status to inpatient as she is still requiring monitoring and med adjustment for symptomatic orthostasis anticipate discharge to home with no services once medically stable. discussed with Dr Perdomo Subjective Subjective Patient reports: tolerating liquids well, tolerating a regular diet, voiding w/o difficulty and afebrile; denies shortness of breath Interval history since last seen: still having symptoms and orthostatic. Exam Const General: cooperative, no acute distress and ill appearing (mildly) Nutritional Appearance: average body habitus Orientation: alert, awake and oriented x3 HENMT Head: normal to inspection, normocephalic and atraumatic Face and sinus: normal facial exam Mouth: oral mucosae normal Chest Chest: normal inspection of the chest Resp Effort & Inspection: normal respiratory effort Cardio Rate: regular rate Rhythm: regular rhythm GI Inspection: normal to inspection Palpation: soft and nontender Skin General skin exam: no rashes or lesions noted Neuro General: patient alert, patient awake, patient oriented x3 and no focal motor deficits Extrem General: normal to inspection, full ROM and no pedal edema Objective Last Vital Signs Temp 37.1 C 09/18/22 15:09 Pulse 74 09/18/22 15:09 Resp 18 09/18/22 15:09 BP 145/88 H 09/18/22 15:09 Pulse Ox 95 09/18/22 15:09 Laboratory Results - last 24 hr 09/18/22 06:20 Sodium 137 Potassium 3.5 Chloride 104 Carbon Dioxide 26.2 Anion Gap 6.8 BUN 25 H Creatinine 1.0 Est GFR (CKD-EPI 2020) 56.95 Glucose 123 H Calcium 8.6 PAWSS Have you Been Recently Intoxicated or Drunk Within the Last 30 days?: No Have you Ever Experienced Previous Episodes of Alcohol Withdrawal?: No Have you ever Experienced Withdrawal Seizures?: No Have you ever Experienced Delirium Tremens(DT)s?: No Have you ever undergone Alcohol Rehabilitation Treatment (i.e, inpt ot outpatient treatment programs)?: No Have you ever Experienced Blackouts?: No Have you ever Combined Alcohol with other Downers within the last 90 days?: No Have you ever Combined Alcohol with any other Substance of Abuse during the last 90 days?: No Positive Blood Alcohol level on Presentation? [PCS.BAL]: No Evidence of Increased Autonomic Activity (i.e. HR>120, tremor, sweating, agitation, nausea)?: No Result: 0 Time Spent with Patient Time Spent with Patient: 25-34 minutes Time was spent: preparing to see the patient(eg.review tests), obtaining and/or reviewing separately otained hiistory, ordering medications,tests, procedures, referring, communicating with other health manager respiratory care, indepentently interpreting results and counseling the patient
[2022-09-18] MEDS: Acetaminophen 325 MG TAB PO (17:36)
[2022-09-18] MEDS: Simvastatin 40 MG TAB PO (19:34)
[2022-09-18] MEDS: Montelukast 10 MG TAB PO (19:34)
[2022-09-19] VITALS (7 sets, daily range): BP systolic 106–171; BP diastolic 57–83; PULSE 68–98; RESP 16–18; TEMP 36.5–37; O2SAT 95–97
--- NOTE | 2022-09-19 | DI.CT_ITS ---
Exam(s) CT HEAD WO EXAM: CT HEAD WO CLINICAL HISTORY: headache, orthostasis. TECHNIQUE: Imaging Protocol: Axial computed tomography images with coronal and sagittal reformatted images were created and reviewed COMPARISON: CT CT HEAD WO from 03/30/2019 FINDINGS: There are no skull fractures. There is no fluid in the visualized paranasal sinuses. There is no evidence of intracranial hemorrhage, mass effect, or shift of midline structures. There are no extra-axial fluid collections. The ventricles are not enlarged or shifted and there is no blo od within the ventricular system nor within the basal cisterns. IMPRESSION: No acute intracranial findings on this noninfused CT scan of the brain. RADIATION DOSE DELIVERED: 631.87mGy.cm Total DLP DATA REPOSITORY: All CT scans at this facility are submitted to the National Radiology Data Registry (NRDR) Dose Index Registry (DIR) with the [employer] (ACR). RADIATION OPTIMIZATION: All CT scans at this facility use at least one of these dose optimization te chniques: automated exposure control; mA and/or kV adjustment per patient size (includes targeted exa ms where dose is matched to clinical indication); or iterative reconstruction.
[2022-09-19 06:29] LABS: Platelet Count 161 10^3/uL (130-400)
[2022-09-19] MEDS: Enoxaparin 40 MG/0.4 ML SYR SC (08:12)
[2022-09-19] MEDS: Esomeprazole 20 MG CAPCR PO ×2 (08:13→15:34)
[2022-09-19] MEDS: FLUoxetine 20 MG CAP PO (08:13)
[2022-09-19] MEDS: Potassium Chloride 10 MEQ CAPCR 20 MEQ PO (08:13)
[2022-09-19] MEDS: Acetaminophen 325 MG TAB PO ×2 (08:37→12:06)
[2022-09-19] MEDS: Budesonide/Formoterol 160/4.5 6 GM 60 PUFF INH IH ×2 (09:56→20:52)
--- NOTE | 2022-09-19 11:02 | DI.VRAD_ITS ---
PROCEDURE INFORMATION: Exam: CT Head Without Contrast Exam date and time: 09/19/2022 10:42 AM Age: 81 years old Clinical indication: Other: Headache, orthostasis TECHNIQUE: Imaging protocol: Computed tomography of the head without contrast. Radiation optimization: All CT scans at this facility use at least one of these dose optimization techniques: automated exposure control; mA and/or kV adjustment per patient size (includes targeted exams where dose is matched to clinical indication); or iterative reconstruction. COMPARISON: CT HEAD WO 03/30/2019 4:54 PM FINDINGS: Brain: No evidence of acute infarct. No intraparenchymal hemorrhage. No midline shift or mass effect. No extra-axial fluid collections or hemorrhage. Cerebral ventricles: No ventriculomegaly. Paranasal sinuses: Visualized sinuses are unremarkable. No fluid levels. Mastoid air cells: Visualized mastoid air cells are well aerated. Bones/joints: Unremarkable. No acute fracture. Soft tissues: Unremarkable. IMPRESSION: No acute intracranial abnormality. Dictated and Authenticated by: Ming Hart MD. Ordering:BARBARA Mcguire MD
[2022-09-19] MEDS: Midodrine 2.5 MG TAB 5 MG PO ×3 (12:04→20:52)
[2022-09-19] MEDS: Ketorolac 15 MG/ML VIAL IVP (12:15)
[2022-09-19] MEDS: Normal Saline Flush 10 ML SYR IVP (12:15)
--- NOTE | 2022-09-19 13:35 | W.PM.PROGNOT ---
Date of Service Date of service: 09/19/22 Time of Service: 13:36 Assessment and Plan Assessment and plan (1) Orthostatic hypotension: Status: Acute Assessment and plan: continues to have symptoms after IV hydration and holding blood pressure meds. 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 Franc Nicholson at [facility]. unlikely the cause of her symptoms (3) DVT prophylaxis: Status: Acute Assessment and plan: enoxaparin, TEDS (4) Discharge planning issues: Status: Acute Assessment and plan: change status to inpatient as she is still requiring monitoring and med adjustment for symptomatic orthostasis anticipate discharge to home with no services once medically stable. discussed with Dr Perdomo Subjective Subjective Patient reports: voiding w/o difficulty and afebrile; denies shortness of breath Interval history since last seen: still having headache and lightheadedness/dizziness with position changes. Exam Const General: cooperative and no acute distress Nutritional Appearance: average body habitus Orientation: alert, awake and oriented x3 HENMT Head: normal to inspection, normocephalic and atraumatic Face and sinus: normal facial exam Mouth: oral mucosae normal Chest Chest: normal inspection of the chest Resp Effort & Inspection: normal respiratory effort Cardio Rate: regular rate Rhythm: regular rhythm GI Inspection: normal to inspection Palpation: soft and nontender Skin General skin exam: no rashes or lesions noted Neuro General: patient alert, patient awake, patient oriented x3 and no focal motor deficits Extrem General: normal to inspection, full ROM and no pedal edema Objective Last Vital Signs Temp 37 C 09/19/22 11:07 Pulse 70 09/19/22 11:07 Resp 18 09/19/22 11:07 BP 157/77 H 09/19/22 11:07 Pulse Ox 95 09/19/22 11:07 Laboratory Results - last 24 hr 09/19/22 06:06 Plt Count 161 PAWSS Have you Been Recently Intoxicated or Drunk Within the Last 30 days?: No Have you Ever Experienced Previous Episodes of Alcohol Withdrawal?: No Have you ever Experienced Withdrawal Seizures?: No Have you ever Experienced Delirium Tremens(DT)s?: No Have you ever undergone Alcohol Rehabilitation Treatment (i.e, inpt ot outpatient treatment programs)?: No Have you ever Experienced Blackouts?: No Have you ever Combined Alcohol with other Downers within the last 90 days?: No Have you ever Combined Alcohol with any other Substance of Abuse during the last 90 days?: No Positive Blood Alcohol level on Presentation? [PCS.BAL]: No Evidence of Increased Autonomic Activity (i.e. HR>120, tremor, sweating, agitation, nausea)?: No Result: 0 Time Spent with Patient Time Spent with Patient: 25-34 minutes Time was spent: preparing to see the patient(eg.review tests), obtaining and/or reviewing separately otained hiistory, ordering medications,tests, procedures, indepentently interpreting results and counseling the patient
[2022-09-19] MEDS: Montelukast 10 MG TAB PO (20:52)
[2022-09-19] MEDS: Simvastatin 40 MG TAB PO (20:52)
[2022-09-20] VITALS (7 sets, daily range): BP systolic 114–185; BP diastolic 65–83; PULSE 68–80; RESP 16–19; TEMP 36–37.3; O2SAT 95–98
[2022-09-20] MEDS: Budesonide/Formoterol 160/4.5 6 GM 60 PUFF INH IH ×2 (08:02→19:55)
[2022-09-20] MEDS: Potassium Chloride 10 MEQ CAPCR 20 MEQ PO (08:18)
[2022-09-20] MEDS: FLUoxetine 20 MG CAP PO (08:19)
[2022-09-20] MEDS: Esomeprazole 20 MG CAPCR PO ×2 (08:19→15:42)
[2022-09-20] MEDS: Midodrine 2.5 MG TAB 5 MG PO ×3 (08:19→19:56)
[2022-09-20] MEDS: Enoxaparin 40 MG/0.4 ML SYR SC (08:20)
[2022-09-20] MEDS: Normal Saline Flush 10 ML SYR IVP (08:20)
--- NOTE | 2022-09-20 10:43 | NUR.NOTE ---
notified charge nurse of pt experiencing lightheadedness. pt states that she does not feel dizzy.
--- NOTE | 2022-09-20 14:14 | PGE_ITS ---
Date of Service Date of service: 09/20/22 Time of Service: 14:14 Assessment and Plan Assessment and plan (1) Orthostatic hypotension: Status: Acute Assessment and plan: continues to have symptoms after IV hydration and holding blood pressure meds and now started on midodrine ensure TEDS when out of bed fall risk (2) Pacemaker: Status: Chronic Assessment and plan: We will attempt to interrogate her pacemaker but if unable to do so then she will need to follow-up as an outpatient with her EP property management bookkeeper Dr. Franc Nicholson at [facility]. unlikely the cause of her symptoms she has been paced on telemetry with no dysrhythmias, she continues to have symptoms despite no tele changes, will discontinue tele (3) DVT prophylaxis: Status: Acute Assessment and plan: enoxaparin, TEDS (4) Discharge planning issues: Status: Acute Assessment and plan: continue monitoring and med adjustment for symptomatic orthostasis anticipate discharge to home with no services once medically stable. discussed with Dr Perdomo Subjective Subjective Interval history since last seen: still having symptoms of lightheadedness and dizziness. still orthostatic on check this am Exam Const General: cooperative and no acute distress Nutritional Appearance: average body habitus Orientation: alert, awake and oriented x3 HENMT Head: normal to inspection, normocephalic and atraumatic Face and sinus: normal facial exam Mouth: oral mucosae normal Chest Chest: normal inspection of the chest Resp Effort & Inspection: normal respiratory effort Cardio Rate: regular rate Rhythm: regular rhythm GI Inspection: normal to inspection Palpation: soft and nontender Skin General skin exam: no rashes or lesions noted Neuro General: patient alert, patient awake, patient oriented x3 and no focal motor deficits Extrem General: normal to inspection, full ROM and no pedal edema Objective Last Vital Signs Temp 37.3 C 09/20/22 11:27 Pulse 72 09/20/22 11:27 Resp 19 09/20/22 11:27 BP 140/69 09/20/22 11:27 Pulse Ox 96 09/20/22 11:27 PAWSS Have you Been Recently Intoxicated or Drunk Within the Last 30 days?: No Have you Ever Experienced Previous Episodes of Alcohol Withdrawal?: No Have you ever Experienced Withdrawal Seizures?: No Have you ever Experienced Delirium Tremens(DT)s?: No Have you ever undergone Alcohol Rehabilitation Treatment (i.e, inpt ot outpatient treatment programs)?: No Have you ever Experienced Blackouts?: No Have you ever Combined Alcohol with other Downers within the last 90 days?: No Have you ever Combined Alcohol with any other Substance of Abuse during the last 90 days?: No Positive Blood Alcohol level on Presentation? [PCS.BAL]: No Evidence of Increased Autonomic Activity (i.e. HR>120, tremor, sweating, agitation, nausea)?: No Result: 0 Time Spent with Patient Time Spent with Patient: 25-34 minutes Time was spent: preparing to see the patient(eg.review tests), ordering medications,tests, procedures, referring, communicating with other health personal care service provider and counseling the patient
--- NOTE | 2022-09-20 14:41 | PHA.REVIEW2 ---
Pharmacy Admission Review - Admission Clinical Review (Last Reviewed 09/16/22 @ 20:06 by Gerardo Owens) Discharge planning issues (Acute) DVT prophylaxis (Acute) Orthostatic hypotension (Acute) Visual changes (Acute) Episodic lightheadedness (Acute) Increasing shortness of breath (Acute) Urinary tract infection (Acute) adhesive Allergy (Severe, Verified 09/16/22 18:18) SKIN RASH Sulfa (Sulfonamide Antibiotics) Allergy (Intermediate, Verified 09/16/22 18:18) ITCHING losartan Allergy (Unknown, Verified 09/16/22 18:18) SWELLING, ITCHING hydrocodone Adverse Reaction (Verified 09/16/22 18:18) Itching with high doses Resuscitation Status Full Code Height 5 ft 4 in Weight 73.936 kg - Renal Dosing Renal Dosing: BUN 25 mg/dL (7-18) H 09/18/22 06:20 Creatinine 1.0 mg/dL (0.55-1.02) 09/18/22 06:20 Medications needing adjustments: Reviewed (eCrCl 44 ml/min) List of meds needing interventions: all ok - Anticoagulation Anticoagulation: Hgb 14.2 g/dL (11.2-15.7) 09/17/22 03:50 Hct 41.3 % (36.0-46.0) 09/17/22 03:50 Plt Count 161 10^3/uL (130-400) 09/19/22 06:06 Creatinine 1.0 mg/dL (0.55-1.02) 09/18/22 06:20 DVT Prophylaxis: Reviewed Medications: Enoxaparin - Opiate Usage Evaluate Pain Scale/Pains Meds: N/A - Relevant Labs Sodium 137 mmol/L (136-145) 09/18/22 06:20 Potassium 3.5 mmol/L (3.5-5.1) 09/18/22 06:20 Chloride 104 mmol/L (98-107) 09/18/22 06:20 Magnesium 2.1 mg/dL (1.8-2.4) 09/17/22 03:50 Electrolytes, C-Reactive P, ESR: Reviewed (maintenance PO potassium added) - DM Control DM Control: Glucose 123 mg/dL (74-106) H 09/18/22 06:20 DM Control: N/A - Cardiac Review Cardiac Review: Troponin I < 50 ng/L (<or=60) 09/17/22 07:02 BP, HR, EF%: Reviewed (hctz and valsartan on hold, midodrine started yesterday with minimal effect, considering trial of fludrocortisone) List meds needing interventions: hctz and valsartan on hold (both can exacerbate orthostatis hypotension), midodrine started yesterday with minimal effect, considering trial of fludrocortisone - Qtc Review QTc: Reviewed If Elevated, List meds needing intervention: QTc was 502 on admission, will watch for addition of qt prolonging meds - IV to PO Switch IV Medications: Reviewed - Home Meds Home Med List reviewed: Reviewed Relevent Home Meds Not ordered & why?: all ordered, BP meds on hold due to ongoing orthostatic hypotension - Current meds Current Medication Order Review: Reviewed (midodrine added yestreday at 5mg TID, considering florinef)
--- NOTE | 2022-09-20 15:01 | CMPROGNOTE_ITS ---
Date of service: 09/20/22 Time of Service: 15:02 Care Management Progress Note Progress Note Text Progress Note Text: S/O: Gela remains inpatient, due to orthostatics; medications continue to be adjusted, CM continues to follow. A: 81 year old female admitted to [facility] 09/18/22 with dyspnea, interstitial lung disease, HB P: Gela will return home with no additional services when ready per MD. She will follow up with her community providers and transport via private vehicle.
--- NOTE | 2022-09-20 16:29 | PT.INTREAT ---
PT Notes Visit Reasons: Dyspnea. Interstitial Lung Disease, HB Inpatient Physical Therapy Treatment Note [facility] Date: 09/20/22 PRECAUTIONS:none SUBJECTIVE: Gela states that she is feeling good with her mobility. She feels about baseline, and is anxious to get back home. States that she does note some weakness in her legs, and has had a couple of falls this past year. Denies dizziness at this time. OBJECTIVE: BED MOBILITY/TRANSFERS Rolling L/R: independent Supine-sit: independent Sit-supine: independent Sit-stand: independent Stand-sit: independent Bed-Chair: independent Chair-bed: independent GAIT Assistive Device: none Weight bearing: full Assist: independent Distance: 20'x6 in room Deviation: none VITALS: supine: 173/71 sittin/87 standin/73 BALANCE: 4-position balance test: 0/4 (requires UE support for small CHERYL standing) Rhomberg: (+) for trunk sway requiring mod A NEUROMUSCULAR RE-EDUCATION ([id number]): small CHERYL standing with fingertip support to counter, 30 seconds single leg standing with bilat UE support, 30 seconds each sit-stand 3x- d/c due to feeling woozy. BP 158/70, HR 82. Symptoms resolve with sitting x 2 minutes. ASSESSMENT: Doing well with independent mobility, although with underlying balance impairment and history of falls. Continue PT intervention 3x/week during hospitalization to maximize safety and reduce fall risk. Recommend outpatient PT upon return home for balance retraining. PLAN: Continue PT for balance retraining 3x/week in acute care setting. Outpatient PT upon discharge. TREATMENT CODE/TIME: [id number] ([id number]) Lizz Mcnally, PT, DPT [facility]
[2022-09-20] MEDS: Acetaminophen 325 MG TAB PO (17:08)
[2022-09-20] MEDS: Simvastatin 40 MG TAB PO (20:03)
[2022-09-20] MEDS: Montelukast 10 MG TAB PO (20:03)
[2022-09-21 05:30] VITALS: BP 156/74; BP 178/80; BP 198/92; PULSE 66; PULSE 69; PULSE 84; RESP 20; TEMP 36; O2SAT 97
--- NOTE | 2022-09-21 06:48 | NUR.NOTE ---
09/20/22 1800 this rn spoke with charge nurse about concerns that patient and this rn had regarding lack of cardiology referrals and contact. pt was requesting to be transferred to [facility] where her gasoline pump mechanic is to be able to get more help regarding treatment. this rn suggested that we attempt to get a cardiology consult and pt was in agreement. pt also states that jesse baca did not visit patient throughout the day. pt was seen by dr mathew but states that he did not assist her in answering any questions.
[2022-09-21] MEDS: Acetaminophen 325 MG TAB PO (07:39)
[2022-09-21] MEDS: FLUoxetine 20 MG CAP PO (07:40)
[2022-09-21] MEDS: Esomeprazole 20 MG CAPCR PO ×2 (07:40→16:43)
[2022-09-21] MEDS: Potassium Chloride 10 MEQ CAPCR 20 MEQ PO (07:40)
[2022-09-21] MEDS: Budesonide/Formoterol 160/4.5 6 GM 60 PUFF INH IH ×2 (07:41→22:34)
[2022-09-21] MEDS: Enoxaparin 40 MG/0.4 ML SYR SC (07:49)
[2022-09-21] MEDS: Valsartan 40 MG TAB 20 MG PO (08:41)
[2022-09-21 09:15] VITALS: BP 117/62; BP 144/70; BP 152/82; BP 153/67; PULSE 69; PULSE 71; PULSE 72; PULSE 77; RESP 16; TEMP 36.7; O2SAT 96
--- NOTE | 2022-09-21 10:25 | NUR.NOTE ---
pt is experiencing some anxiety related to the credit controller jesse stating we dont care about your high blood pressure, we care about the low. pt is stating that she wants to speak with the DON regarding her care and how she feels she is not getting the treatment that she needs at this time.
--- NOTE | 2022-09-21 10:38 | PDOC.CMDIS ---
Date of service: 09/21/22 Time of Service: 10:38 LACE Index Scoring Tool Questions: Length of Stay (in days): 3 Was the patient admitted via the E.D.?: Yes E.D. Visits: 1 Answers: Total Score: 7 Risk of Readmission: Low Risk Care Management Discharge Plan Reason for Hospitalization: Sent by PCP. Dyspnea, interstitial lung disease HB Discharge Plan: Gela will discharge home when medically ready. She will follow up with her PCP and discharge plan of care and transport herself home via private vehicle. Patient/Family Education Needs: Review discharge instructions, discuss Ask Me Three.
--- NOTE | 2022-09-21 10:38 | NUR.NOTE ---
follow up with charge nurse rbijesh regarding cardiology consult. charge nurse was told that pt will not be seen by cardiology as they are doing everything as far as treatment on the floor. this rn will communicate this with director carmencita marx as pt is requesting consult and communication with recruitment assistant as is her right as a patient,
--- NOTE | 2022-09-21 12:24 | NCONE_ITS ---
Date of service: 09/21/22 Time of Service: 12:25 Assessment and Plan Assessment and plan (1) Orthostatic hypotension: Status: Acute (2) Chronic headache: Status: Acute Assessment and plan: #1. Orthostatic hypotension, unclear etiology, complicated by hypertension. She has symptomatically improved with midodrine 2.5mg TID and compression stockings. We discussed abdominal binder, standing up slowly, increased salt/water intake, and toe tapping among other measures to further reduce symptoms. She is having supine hypertension at this time. Would recommend trial of verapamil 40mg HS to start; which can be increased further as needed. My personal preference is Ca channel blockers as the least likely to exacerbate OH. When she gets home, she will need a BP cuff to monitor nocturnal supine BP 1 hour after she takes her verapamil. #2. Chronic daily headaches upon awakening. Discussed headaches may be related to an underlying sleep disorder. I recommend outpatient sleep clinic referral and evaluation.She wasn't interested in a headache preventative medication at this time. She should f/up in PCP and/or neurology clinic in 2-4 weeks with supine BP measurements. History of Present Illness History of Present Illness Chief Complaint: orthostatic hypotension Narrative: Handedness: right. Gela Soto is an 81 year-old with interstitial lung disease, hypertension, hyperlipidemia, heart block s/p Pacemaker, COVID infection in May 2022, GERD, depression. Ms. Soto was admitted on 09/16/22 dizziness and increasing SOB. She notes that in the last 2-3 weeks, she has had episodes of lightheadedness upon standing, worse in the mornings, and associated with blurred vision and i mbalance, that resolve with sitting. She has been on HCTZ 25mg daily along with valsartan 80mg daily for >1 year unchanged. Inpatient, she was found to have orthostatic hypotension. She was re-hydrated and her home BP medications were held. She continued to note dizziness such that she has since been started on midodrine 2.5mg TID. She now notes no dizziness unless she stands up quickly. She is also wearing compression stockings. Sitting/standing BPs still variable ranging 100s-170s with drops 10-40 points. HR does not change with standing significantly. She otherwise notes several years of waking up with headaches in the mornings. This occurs nearly every day. She will take 1000mg APAP and will have no further SOMMER the rest of the day. She sleeps from 10pm to 10am most days. She wakes up every 2 hours but doesn't know why. She goes back to sleep. She never feels rested. She snores. She has never had a sleep study or nocturnal O2 study. work-up: -[facility] (09/19/22): read as unremarkable by rads. ?Old R cerebellar infarcts vs artifact. I reviewed these images personally and this is my personal interpretation. Review of Systems All systems reviewed & are unremarkable except as noted in HPI and below PFSH All Active Problems (Updated 09/21/22 @ 13:26 by Tanya Galaviz MD) Chronic headache (Acute) Discharge planning issues (Acute) DVT prophylaxis (Acute) Orthostatic hypotension (Acute) Visual changes (Acute) Episodic lightheadedness (Acute) Increasing shortness of breath (Acute) Pacemaker (Chronic) [employer] placed at [facility] by Dr. Nicholson 07/31/21. RH Interstitial lung disease (Chronic) a. due to h/o psittacosis approximately 14-15 years ago Depression (Chronic) a. well controlled on SSRI PUD (peptic ulcer disease) (Chronic) Overweight (Chronic) Fibrocystic breast (Chronic) H/O surgical procedure (Chronic) a. Bilateral shoulder surgeries b. Right medial meniscus repair c. Rahman's cyst surgery d. Cataract surgery x 2 e. S/p Cholecystectomy f. S/p hysterectomy for benign reasons g. s/p breast biopsy h. 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 Follow-up in approximately 2 weeks for use of dural Jac as a [place] supplement prior to her trip to [facility] [place]. Polyp of colon (Chronic) Hiatal hernia (Acute) Fracture, pelvis closed (Chronic) Left lumbar radiculopathy (Acute) COVID-19 (Acute) Onset~03/2021, Onset 05/26/22 Urinary tract infection (Acute) Liver cyst (Acute) Medical History Acute bacterial bronchitis Arthritis of left knee s/p total knee Asthma Gastroparesis GERD (gastroesophageal reflux disease) H/O: pneumonia Headache Hypercholesterolemia Insomnia Osteoarthritis Peptic ulcer Unilateral inguinal hernia Surgical History Arthroscopy, Shoulder LEFT Biopsy of breast (~2005) LEFT Cholecystectomy Extraction of cataract 06/11/13; RIGHT 06/26/13; LEFT FX ARM (02/15/14) PLATE AND SCREWS History of cataract removal with insertion of prosthetic lens Hysterectomy, Laproscopic 1 ovary remains Status post arthroscopy of shoulder Status post breast biopsy Status post cholecystectomy Status post laparoscopic hysterectomy Status post right knee replacement Family History Mother Diabetes Essential hypertension Depression Heart disease Hyperlipidemia Father , WW II at age 24. No problems noted. Brother Diabetes Essential hypertension Hyperlipidemia Neoplasm MELANOMA Grandfather Diabetes Essential hypertension Grandfather Essential hypertension Heart disease Hyperlipidemia Grandmother Essential hypertension Neoplasm Stroke Grandmother Diabetes Blood disease Neoplasm COLON FAMILY HISTORY Myocardial infarction Son Substance abuse Depression Hyperlipidemia Daughter Diabetes Depression Hyperlipidemia Asthma Other Urinary tract infection Social History Smoking/Tobacco Use Status: Never Smoking risk assessment performed?: Yes Alcohol Intake: current Alcohol Intake frequency: a few times a month Alcohol type: hard liquor Drug use: Never Substance use type: does not use Caregiver/Support person: No Household members: none Housing: other Do you need help understanding health information?: Never Pets and animals: No Current gender identity: female What is your relationship status?: How often do you talk on the phone with friends or family?: three or more times per week How often do you get together with friends or relatives?: decline to answer How often do you attend islam or druze services?: decline to answer Do you belong to any clubs or organized social groups?: yes Panel score (0-1 are the most socially isolated patients): 2 What type of physical activity do you participate in: walking Janet/Quaker: None Special janet needs: No Seatbelt use: always Drive intox or ride w/intox piledriver carpenter: No Do you feel safe at home: Yes Do you feel safe in your relationship?: Yes Additional Social history: 6years ago. Lives by self. Visit Medication and Allergies Active Medications Generic Name Dose Route Start Last Admin Trade Name Freq PRN Reason Stop Dose Admin Acetaminophen 0 mg 09/16/22 20:25 09/21/22 07:39 Acetaminophen 325 Mg Tab PO 650 mg Q4H PRN PRN Administration Al Hydrox/Mg Hydrox/Simethicone 30 ml 09/16/22 20:25 Mylanta Suspension 30 Ml Cup PO Q2H PRN PRN Albuterol Sulfate 2.5 mg 09/16/22 20:20 Albuterol 2.5 Mg/3 Ml Inh Soln Vial UPD Q2H PRN PRN Budesonide/Formoterol Fumarate 2 puff 09/17/22 08:30 09/21/22 07:41 Budesonide/Formoterol 160/4.5 6 Gm 60 Puff Inh IH 2 puffs BID CRISTINE Administration Dimethicone/Zinc Oxide 0 gm 09/16/22 20:20 Rasta Protect Cream 142 Gm Tube TP PRN PRN Docusate Sodium 100 mg 09/16/22 20:25 09/18/22 15:55 Docusate Sodium 100 Mg Cap PO 100 mg TID PRN PRN Administration Enoxaparin Sodium 40 mg 09/17/22 08:30 09/21/22 07:49 Enoxaparin 40 Mg/0.4 Ml Syr SC 40 mg DAILY CRISTINE Administration Esomeprazole Magnesium 20 mg 09/17/22 09:00 09/21/22 07:40 Esomeprazole 20 Mg Capcr PO 20 mg BID AC CRISTINE Administration Fluoxetine HCl 20 mg 09/17/22 08:30 09/21/22 07:40 Fluoxetine 20 Mg Cap PO 20 mg DAILY CRISTINE Administration Fluticasone Propionate 0 gm 09/16/22 20:29 Fluticasone Nasal [place] 16 Gm Btl NS DAILY PRN PRN Hydrochlorothiazide 25 mg 09/17/22 08:30 Hydrochlorothiazide 25 Mg Tab PO DAILY CRISTINE Sodium Chloride 500 mls @ 0 mls/hr 09/16/22 20:20 Saline 500ml Bag IV PRN PRN As Directed IV Miscellaneous Supplies 1 each 09/16/22 20:30 Iv Access IV DIRECTED CRISTINE Magnesium Hydroxide 30 ml 09/16/22 20:25 Milk Of Magnesia 30 Ml Cup PO DAILY PRN PRN Midodrine 2.5 mg 09/21/22 14:00 Midodrine 2.5 Mg Tab PO TID CRISTINE Montelukast Sodium 10 mg 09/17/22 22:00 09/20/22 20:03 Montelukast 10 Mg Tab PO 10 mg HS CRISTINE Administration Polyethylene Glycol 17 gm 09/16/22 20:25 Polyethylene Glycol 3350 17 Gm Packet PO DAILY PRN PRN Constipation Potassium Chloride 20 meq 09/17/22 08:30 09/21/22 07:40 Potassium Chloride 10 Meq Capcr PO 20 meq DAILY CRISTINE Administration Simvastatin 40 mg 09/17/22 22:00 09/20/22 20:03 Simvastatin 40 Mg Tab PO 40 mg HS CRISTINE Administration Sodium Chloride 0 ml 09/16/22 20:20 09/20/22 08:20 Normal Saline Flush 10 Ml Syr IVP 10 ml PRN PRN Administration Tiotropium [place] 2 puff 09/17/22 08:30 09/21/22 07:42 Tiotropium [place]-Respimat 28 Puff Inh IH 2 puffs DAILY CRISTINE Administration Valsartan 20 mg 09/21/22 08:30 09/21/22 08:41 Valsartan 40 Mg Tab PO 20 mg DAILY CRISTINE Administration Allergies adhesive Allergy (Severe, Verified 09/16/22 18:18) SKIN RASH Sulfa (Sulfonamide Antibiotics) Allergy (Intermediate, Verified 09/16/22 18:18) ITCHING losartan Allergy (Unknown, Verified 09/16/22 18:18) SWELLING, ITCHING hydrocodone Adverse Reaction (Verified 09/16/22 18:18) Itching with high doses Exam Narrative Exam Narrative: Physical Exam: Gen: Patient of apparent stated age, NAD Head and face: no facial or cranial abnormalities Neck: Supple, no meningismus, no occipital tenderness CV: + S1, S2, RRR, no murmur Resp: CTA B/L Abd: soft, nontender, nondistended Ext: No edema. No clubbing or cyanosis. No bony deformity. Neuro Exam: Language: fluency, naming, repetition, and comprehension intact; Mental Status: AAOx3, current events intact, fund of knowledge intact; Speech: no dysarthria Cranial nerves: Funduscopy: not performed CN II: visual jiang intact CN III, IV, : extraocular movements intact, no nystagmus, pupils symmetric and reactive to light CN V: face sensation intact to LT and PP CN VII: no facial asymmetry noted CN VIII: hearing intact bilaterally CN IX, X: palate rises symmetrically CN XI: trapezius/SCM 5/5 bilaterally CN XII: protrudes tongue symmetrically Sensory: intact to LT, PP, vibration, and joint position in all extremities Motor: bulk and tone intact. No bradykinesia or cogwheel rigidity. Fine motor m ovements intact bilaterally. No pronator drift. Strength 5/5 throughout including the deltoids, biceps, triceps, wrist extensors, hip flexors, knee flexors, knee extensors, ankle flexors, and ankle extensors. Reflexes: hyporeflexic throughout at the biceps, triceps, brachioradialis, patella, and achilles tendons bilaterally; toes down going bilaterally; Coordination: FTN and HTS intact bilaterally Gait: did not test; she was eating lunch Results Last Vital Signs Temp 98.1 F 09/21/22 09:15 Pulse 72 09/21/22 09:15 Resp 16 09/21/22 09:15 BP 153/67 H 09/21/22 09:15 Pulse Ox 96 09/21/22 09:15 Labs 09/19/22 06:06 09/18/22 06:20
--- NOTE | 2022-09-21 13:06 | W.PM.PROGNOT ---
Date of Service Date of service: 09/21/22 Time of Service: 13:06 Assessment and Plan Assessment and plan (1) Orthostatic hypotension: Status: Acute Assessment and plan: continues to have symptoms after IV hydration and holding blood pressure meds and now started on midodrine but blood pressures are reading higher which is concerning to her ensure TEDS when out of bed fall risk will drop midodrine dose to 2.5 mg po tid was given valsartan 20 mg this am (takes 80 mg at home). this plan was review with cardiology who is an agreement with no new recommendations at this time, consider neuro evaluation, which was placed. after neuro eval recommendations: continue midodrine, stop valsartan, and start verapamil 40 mg at HS. (2) Pacemaker: Status: Chronic Assessment and plan: EP telephone information clerk Dr. Franc Nicholson at [facility]. unlikely the cause of her symptoms she had been paced on telemetry with no dysrhythmias, she continues to have symptoms despite no tele changes, discontinued tele (3) DVT prophylaxis: Status: Acute Assessment and plan: enoxaparin, TEDS (4) Discharge planning issues: Status: Acute Assessment and plan: continue monitoring and med adjustment for symptomatic orthostasis anticipate discharge to home tomorrow with no services if medically stable. discussed with Dr Alanis, Subjective Subjective Interval history since last seen: still continues to have drop in systolic blood pressure when standing with symptoms, still reporting headache. no visual changes, no changes in headache. she is eating and drinking and safely re-ambulated. Exam Const General: cooperative and no acute distress Nutritional Appearance: average body habitus Orientation: alert, awake and oriented x3 [facility] Head: normal to inspection, normocephalic and atraumatic Face and sinus: normal facial exam Mouth: oral mucosae normal Chest Chest: normal inspection of the chest Resp Effort & Inspection: normal respiratory effort Cardio Rate: regular rate Rhythm: regular rhythm GI Inspection: normal to inspection Palpation: soft and nontender Skin General skin exam: no rashes or lesions noted Neuro General: patient alert, patient awake, patient oriented x3 and no focal motor deficits Extrem General: normal to inspection, full ROM and no pedal edema Objective Last Vital Signs Temp 36.7 C 09/21/22 09:15 Pulse 72 09/21/22 09:15 Resp 16 09/21/22 09:15 BP 153/67 H 09/21/22 09:15 Pulse Ox 96 09/21/22 09:15 PAWSS Have you Been Recently Intoxicated or Drunk Within the Last 30 days?: No Have you Ever Experienced Previous Episodes of Alcohol Withdrawal?: No Have you ever Experienced Withdrawal Seizures?: No Have you ever Experienced Delirium Tremens(DT)s?: No Have you ever undergone Alcohol Rehabilitation Treatment (i.e, inpt ot outpatient treatment programs)?: No Have you ever Experienced Blackouts?: No Have you ever Combined Alcohol with other Downers within the last 90 days?: No Have you ever Combined Alcohol with any other Substance of Abuse during the last 90 days?: No Positive Blood Alcohol level on Presentation? [PCS.BAL]: No Evidence of Increased Autonomic Activity (i.e. HR>120, tremor, sweating, agitation, nausea)?: No Result: 0 Time Spent with Patient Time Spent with Patient: >50 minutes Time was spent: preparing to see the patient(eg.review tests), obtaining and/or reviewing separately otained hiistory, ordering medications,tests, procedures, referring, communicating with other health long term care social worker, counseling the patient and care coordination
[2022-09-21] MEDS: Midodrine 2.5 MG TAB PO ×2 (13:47→20:23)
[2022-09-21 16:39] VITALS: BP 117/61; BP 138/68; BP 159/73; PULSE 72; PULSE 73; PULSE 75; TEMP 36.4; O2SAT 96
[2022-09-21 19:47] VITALS: BP 145/76; PULSE 76; RESP 18; TEMP 37.1; O2SAT 93
[2022-09-21] MEDS: Montelukast 10 MG TAB PO (20:23)
[2022-09-21] MEDS: Simvastatin 40 MG TAB PO (20:23)
[2022-09-21] MEDS: Verapamil 80 MG TAB 40 MG PO (22:34)
[2022-09-21 22:46] VITALS: BP 126/73; PULSE 74; RESP 18; TEMP 36.3; O2SAT 94
[2022-09-22 03:05] VITALS: BP 122/68; PULSE 70; RESP 18; TEMP 36.7; O2SAT 95
[2022-09-22 07:09] VITALS: BP 112/66; PULSE 71; TEMP 36.6; O2SAT 99
[2022-09-22] MEDS: Budesonide/Formoterol 160/4.5 6 GM 60 PUFF INH IH (07:47)
[2022-09-22] MEDS: Esomeprazole 20 MG CAPCR PO (08:52)
[2022-09-22] MEDS: Midodrine 2.5 MG TAB PO (08:52)
[2022-09-22] MEDS: Enoxaparin 40 MG/0.4 ML SYR SC (08:52)
[2022-09-22] MEDS: FLUoxetine 20 MG CAP PO (08:52)
[2022-09-22] MEDS: Normal Saline Flush 10 ML SYR IVP (08:53)
[2022-09-22 09:23] VITALS: BP 116/67; BP 127/70; BP 154/73; PULSE 75; PULSE 78; PULSE 80
--- NOTE | 2022-09-22 10:19 | PT.INTREAT ---
PT Notes Visit Reasons: Dyspnea. Interstitial Lung Disease, HB Inpatient Physical Therapy Treatment Note [facility] Date: 09/22/22 PRECAUTIONS:None SUBJECTIVE: Gela reports no complaints. Generally feeling fatigued and deconditioned. Would like to do outpatient PT upon discharge and looking forward to it. Has been doing exercises in room. OBJECTIVE: PAIN: None reported BED MOBILITY/TRANSFERS Rolling L/R: independent Supine-sit: independent? Sit-supine: independent ? Sit-stand: independent? Stand-sit: independent ? Bed-Chair: independent ? Chair-bed: independent ? GAIT? Assistive Device: none? Weight bearing: full Assist: independent ? Distance:?100ft x2 ? Deviation: none ? Therapeutic Exercise ([id number]) for instruction in therapeutic exercises to develop strength and endurance, range of motion and flexibility: 26 minutes - Standing Hip Flexion March- 10 reps - Standing Hip Extension- 10 reps - Standing Hip Abduction- 10 reps - Standing Hip Flexion AROM- 10 reps - Standing Heel Raise- 10 reps - Standing Knee Flexion- 10 reps - Standing Bicep Curls Supinated with Dumbbells 4# - 10 reps - Standing Bent Over on Chair Single Arm Tricep Extension with Dumbbell 3#- 10 reps - Tandem balance - Single leg balance with contralateral toe touch For HEP also gave seated LAQ, wall push ups, shoulder flexion, shoulder abduction. Access Code: [email or web address] URL: [email or web address] Date: 09/22/2022 Prepared by: Enedina Bates ASSESSMENT: Patient is safe with bed mobility, transfers, and ambulation. She does get a bit short of breath with activity. Able to add weights for arm tasks. Given HEP to work on until she is seen at PT. PLAN: Home with outpatient PT services for balance and endurance ([facility]) TREATMENT CODE/TIME: 10:02-10:28 (26 minutes) [id number]
--- NOTE | 2022-09-22 10:52 | W.PM.DS.N ---
Date of service: 09/22/22 Time of Service: 10:58 DS: Diagnosis Discharge Diagnosis (1) Orthostatic hypotension: Status: Acute (2) Chronic headache: Status: Acute (3) Hypokalemia: Status: Acute Discharge Plan Disposition Patient Disposition: Home Condition: Improving Discharge Details Reason For Visit: Dyspnea. Interstitial Lung Disease, HB Admit Date/Time: 09/18/22 15:01 Admit Provider: Gerardo Owens Attending Provider: Gerardo Owens Primary Care Provider: Kodi Montez Hospital Course Hospital Course: This is an 81-year-old female patient who had a pacemaker placed within this last year for complete heart block.? Since that time she has been having problems with feeling dizzy and lightheaded at times especially when her pacemaker is pacing.? She has been seen by her PCP and walk-in clinic for this problem and also was slightly more short of breath with a chronic history of severe asthma and interstitial lung disease.?Her work up in the ED showed significant orthostatic hypotension, with paced rhythm. she was given IV fluids with no significant improvement in her symptoms to orthostasis. Her blood pressure medication was placed on hold (HCTZ and valsartan). Despite being off her blood pressure medication, she continued with symptomatic orthostasis so midodrine was initiated. being off her blood pressure medication did cause resting blood pressure to go up, but this caused Ms Soto to be very anxious, likely contributing to higher readings, and with standing, she would drop from 160's to 110's and be symptomatic. Her case was discussed with Dr Wood who recommends no additional changes at this time and to continue with midodrine. Dr Hinojosa was also consulted and agrees with continue midodrine but recommends adding short acting verapramil at bedtimes. She also should has outpatient sleep study to evaluate if this is causing her chronic headaches, CT of the head showed no acute pathology. She was also noted to have hypokalemia and was started on potassium supplementation. She should have her labs checked outpatient next week and discuss with pcp if ongoing replacement is needed. of note, she was followed by PT and reggie-hallpike was negative on both sides, other neuro evaluation by pt was negative. she is discharged to home with outpatient follow up with pulmonary which was rescheduled as she was inpatient, recommendations for outpatient sleep study, potassium replacement until lab recheck, further recommendation per pcp. no new services. discussed with DR Alanis Home Meds and New Rx's Prescriptions: New midodrine 2.5 mg Tablet 2.5 mg PO TID Qty: 90 0RF verapamil 80 mg Tablet 40 mg PO HS Qty: 30 0RF Spiriva Respimat 2.5 mcg/actuation Mist 2 puff inhalation DAILY Qty: 4 0RF potassium chloride 10 mEq Capsule, Extended Release 20 meq PO DAILY Qty: 30 0RF Continued albuterol sulfate [ProAir HFA] 90 mcg/actuation HFA aerosol inhaler 2 puff Inhalation QID PRN (Reason: asthma) Qty: 3 0RF Rx Instructions: J45.41 esomeprazole magnesium [Nexium] 40 mg capsule,delayed release(DR/EC) 20 mg PO BID Qty: 180 4RF fluoxetine [Prozac] 20 mg capsule 20 mg PO DAILY Qty: 90 4RF Trelegy Ellipta 200-62.5-25 mcg blister with device 1 inh inhalation DAILY Qty: 60 6RF simvastatin [Zocor] 40 mg tablet 40 mg PO DAILY Qty: 90 3RF albuterol sulfate 1.25 mg/3 mL solution for nebulization 1.25 mg inhalation QID PRN (Reason: shortness of breath or wheezing) Qty: 540 7RF montelukast [Singulair] 10 mg tablet 10 mg PO DAILY Qty: 90 3RF fluticasone propionate [Flonase] 16 GM spray,suspension 2 spry NS DAILY PRN Discontinued hydrochlorothiazide 25 mg tablet 25 mg PO DAILY Qty: 90 3RF valsartan 80 mg tablet 80 mg PO DAILY Qty: 90 3RF Discharge Instructions Instructions: Hypokalemia (DC), Hypotension (DC), General Headache (ED) Stand Alone Forms: Nursing Discharge Form Referrals: [facility] [Outside] (Cardiology will call you if they get any cancellations to fit you in sooner. If they do not call, please keep the appointment you already have scheduled.) Kodi Montez NP [Primary Care Provider] - 09/30/22 10:40 am Nicole Jo MD [ [facility] STAFF PHYSICIAN] - 09/27/22 11:15 am Activity:: Activity as Tolerated Equipment/Supplies:: No Equipment Needed Diet:: As Tolerated Discharge Orders Discharge Orders: Discharge Order (Routine); Ordered 09/22/22 Ordered By: Shayla Rowley Other Ambulatory Orders: Basic Metabolic Panel (Routine) Timeframe: [id number] Location: None Selected Ordered By: Shayla Rowley Discharge Data Discharge Date/Time-TO BE ENTERED AT DEPARTURE: 09/22/22 12:30 DS: Summary Time Spent with Patient providing and/or coordinating discharge services: Greater than 30 minutes Status at Discharge Functional status at discharge: independent ambulation Overall status at discharge: patient is progressing back to baseline Mental Status: mental status grossly normal Speech and Movement: speech and movement normal Mood: congruent mood Affect: normal affect Exam Const General: cooperative and no acute distress Nutritional Appearance: average body habitus Orientation: alert, awake and oriented x3 HENMT Head: normal to inspection, normocephalic and atraumatic Face and sinus: normal facial exam Mouth: oral mucosae normal Chest Chest: normal inspection of the chest Resp Effort & Inspection: normal respiratory effort Cardio Rate: regular rate Rhythm: regular rhythm GI Inspection: normal to inspection Palpation: soft and nontender Skin General skin exam: no rashes or lesions noted Neuro General: patient alert, patient awake, patient oriented x3 and no focal motor deficits Extrem General: normal to inspection, full ROM and no pedal edema Psych Mental Status: mental status grossly normal Speech and Movement: speech and movement normal Mood: congruent mood Affect: normal affect DS: Data Vitals/I&O Vitals and I&O: Vital Signs Temperature 36.6 C 09/22/22 07:09 Temperature Source Tympanic 09/22/22 07:09 Pulse 78 09/22/22 09:23 Pulse Rhythm Regular 09/22/22 08:45 Pulse 68 09/17/22 01:40 Respiratory Rate 18 09/22/22 03:05 Respiratory Effort Normal 09/22/22 08:45 Respiratory Depth Normal 09/22/22 08:45 Respiratory Pattern Normal 09/22/22 08:45 Blood Pressure 154/73 H 09/22/22 09:23 Blood Pressure Mean 81 09/16/22 20:15 Pulse Oximetry 99 09/22/22 07:09 Oxygen Delivery Method Room Air 09/22/22 07:09 Oxygen Flow Rate 0 09/22/22 07:09 Pain Level 0 09/22/22 07:09 Comment denies any dizziness with any transition from laying, sitting, and standing. pt is stable when standing with no swaying 09/21/22 16:39 Intake & Output 09/21/22 09/21/22 09/22/22 11:59 23:59 11:59 Intake Total 650 / 2100 1450 / 2100 Output Total 350 / 350 Balance 650 / 1750 1100 / 1750 Intake: Oral 650 / 2100 1450 / 2100 Output: Urine 350 / 350 Other: Urine Color Yellow Urine Appearance Clear Clear Urine Odor None Voiding Methods Toilet PFSH All Active Problems (Updated 09/22/22 @ 10:58 by Shayla Rowley NP) Hypokalemia (Acute) Chronic headache (Acute) Discharge planning issues (Acute) DVT prophylaxis (Acute) Orthostatic hypotension (Acute) Visual changes (Acute) Episodic lightheadedness (Acute) Increasing shortness of breath (Acute) Pacemaker (Chronic) [employer] placed at [facility] by Dr. Nicholson 07/31/21. RH Interstitial lung disease (Chronic) a. due to h/o psittacosis approximately 14-15 years ago Depression (Chronic) a. well controlled on SSRI PUD (peptic ulcer disease) (Chronic) Overweight (Chronic) Fibrocystic breast (Chronic) H/O surgical procedure (Chronic) a. Bilateral shoulder surgeries b. Right medial meniscus repair c. Rahman's cyst surgery d. Cataract surgery x 2 e. S/p Cholecystectomy f. S/p hysterectomy for benign reasons g. s/p breast biopsy h. 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 Follow-up in approximately 2 weeks for use of dural Jac as a Visco supplement prior to her trip to [facility] [place]. Polyp of colon (Chronic) Hiatal hernia (Acute) Fracture, pelvis closed (Chronic) Left lumbar radiculopathy (Acute) COVID-19 (Acute) Onset~03/2021, Onset 05/26/22 Urinary tract infection (Acute) Liver cyst (Acute) Medical History Acute bacterial bronchitis Arthritis of left knee s/p total knee Asthma Gastroparesis GERD (gastroesophageal reflux disease) H/O: pneumonia Headache Hypercholesterolemia Insomnia Osteoarthritis Peptic ulcer Unilateral inguinal hernia Surgical History Arthroscopy, Shoulder LEFT Biopsy of breast (~2005) LEFT Cholecystectomy Extraction of cataract 06/11/13; RIGHT 06/26/13; LEFT FX ARM (02/15/14) PLATE AND SCREWS History of cataract removal with insertion of prosthetic lens Hysterectomy, Laproscopic 1 ovary remains Status post arthroscopy of shoulder Status post breast biopsy Status post cholecystectomy Status post laparoscopic hysterectomy Status post right knee replacement Family History Mother Diabetes Essential hypertension Depression Heart disease Hyperlipidemia Father , WW II at age 24. No problems noted. Brother Diabetes Essential hypertension Hyperlipidemia Neoplasm MELANOMA Grandfather Diabetes Essential hypertension Grandfather Essential hypertension Heart disease Hyperlipidemia Grandmother Essential hypertension Neoplasm Stroke Grandmother Diabetes Blood disease Neoplasm COLON FAMILY HISTORY Myocardial infarction Son Substance abuse Depression Hyperlipidemia Daughter Diabetes Depression Hyperlipidemia Asthma Other Urinary tract infection Social History Smoking/Tobacco Use Status: Never Smoking risk assessment performed?: Yes Alcohol Intake: current Alcohol Intake frequency: a few times a month Alcohol type: hard liquor Drug use: Never Substance use type: does not use Caregiver/Support person: No Household members: none Housing: other Do you need help understanding health information?: Never Pets and animals: No Current gender identity: female What is your relationship status?: How often do you talk on the phone with friends or family?: three or more times per week How often do you get together with friends or relatives?: decline to answer How often do you attend hindu or confucianism services?: decline to answer Do you belong to any clubs or organized social groups?: yes Panel score (0-1 are the most socially isolated patients): 2 What type of physical activity do you participate in: walking Janet/Uatsdin: None Special janet needs: No Seatbelt use: always Drive intox or ride w/intox 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 Lives by self. Time Spent with Patient Time Spent with Patient: 45-69 minutes Time was spent: preparing to see the patient(eg.review tests), ordering medications,tests, procedures, referring, communicating with other health adult day care worker, counseling the patient and care coordination
[2022-09-22 11:00] VITALS: BP 116/62; PULSE 74; TEMP 36.2; O2SAT 95
--- NOTE | 2022-09-22 12:03 | INDS_ITS ---
PT Notes Visit Reasons: Dyspnea. Interstitial Lung Disease, HB Physical Therapy Inpatient Discharge Summary Treatment Dates: 09/18/2022 - 09/22/22 Number of Visits: 3 Referring Doctor: Armando Pa MD PT Orders: PT CONSULT: D/C Non PT dependent. Please eval for vertigo. Precautions: Fall. Standard. Activity as tolerated. This document serves as a summary of care. No PT services were provided on this date. Patient Profile/Admitting Diagnosis: Teri is an 81-year-old female with interstitial lung disease and history of complete heart block s/p pacemaker placement in August of 2021 who was admitted for management episodic lightheadedness with visual changes, orthostatic hypotension, and prerenal azotemia. She was seen for 3 PT sessions during the course of her care, with improving mobility and safety throughout. She was able to return home 09/22/22. Social History/Home Situation: Lives alone in a private home. Independent with all aspects of ADLs prior to admission without the need for any assistive device nor adaptive equipment. Equipment Owned/DME: None Subjective: none obtained Objective: ROM: Cervical ROM: WFL, no limitations seen Right Upper Extremity: Shoulder Flexion WFL. Shoulder abduction WFL. Elbow flexion WFL. Wrist flexion WFL. Functional opening and closing of hand WFL. Left Upper Extremity: Shoulder Flexion lacks the last 25% of AROM due to pre- existing shoulder problem. Shoulder abduction lacks the last 25% of AROM due to pre-existing shoulder problem. Elbow flexion WFL. Wrist flexion WFL. Functional opening and closing of hand WFL. Right Lower Extremity: Hip flexion WFL. Hip abduction WFL. Knee flexion WFL. Ankle dorsiflexion WFL. Ankle plantarflexion WFL. Left Lower Extremity: Hip flexion WFL. Hip abduction WFL. Knee flexion WFL. Ankle dorsiflexion WFL. Ankle plantarflexion WFL. Strength: Right Upper Extremity: Shoulder flexors 4/5. Shoulder abductors 4/5. Elbow flexors 5/5. Elbow extensors 5/5. Integrity Manager strong. Left Upper Extremity: Shoulder flexors 3-/5. Shoulder abductors 3-/5. Elbow flexors 5/5. Elbow extensors 5/5. Integrity Manager strong. Right Lower Extremity: Hip flexors 5/5. Hip abductors 5/5. Knee flexors 5/5. Knee extensors 5/5. Ankle dorsiflexors 5/5. Ankle plantarflexors 5/5. Left Lower Extremity: Hip flexors 5/5. Hip abductors 5/5. Knee flexors 5/5. Knee extensors 5/5. Ankle dorsiflexors 5/5. Ankle plantarflexors 5/5. BED MOBILITY/TRANSFERS? Rolling L/R: independent Supine-sit: independent? Sit-supine: independent ? Sit-stand: independent? Stand-sit: independent ? Bed-Chair: independent ? Chair-bed: independent ? GAIT? Assistive Device: none? Weight bearing: full Assist: independent ? Distance:?100ft x2 this am. Able to independently walk the halls during her stay. ? Deviation: none ? ? Balance: 4-position balance test (09/20/22): 0/4 (requires UE support for small CHERYL standing) Static Sitting: Normal Dynamic Sitting: Normal Static Standing: Good Dynamic Standing: Good Special Tests: Mobility Limitations Standardized Measure [facility]-P[facility] 6 clicks Basic Mobility Inpatient Short Form: Raw Score: 24 CMS Score: 0% deficit Assessment: Patient presented with clinical signs and symptoms consistent with current/admitting diagnoses that have resulted to mobility limitations, gait instability, generalized weakness, and overall ADL decline. Participated in 3 PT sessions during her course of care, with improvements in safety and activity tolerance. Patient is safe for return to home, with recommendation for outpatient PT to address chronic balance impairment. Goals: Goals X1 week 1. Independent gait on level surface with use of no AD for at least 1000 feet without report of pain nor dyspnea (met) 2. Independent stair negotiation while holding onto B rails for at least 3 steps without report of pain nor dyspnea (not assessed) 3. Independent with home exercise program (met) 4. Good static and dynamic standing balance/tolerance (met) Plan of Care/Treatment Plan: D/C with outpatient PT. DISCHARGE RECOMMENDATIONS: Home with outpatient PT TREATMENT CODE/TIME:none Thank you for the opportunity to participate in the care of this patient. Lizz Mcnally PT, DPT [facility] [place], [place]
== END 2022-09-22 12:30 | disposition home or self-care (01) | DRG 312 ==
LOC: ER 23:16 → MS 09-17 01:52
PROVIDERS: Emergency Medicine; Internal Medicine; Admitting Provider Family Medicine; Emergency Provider Student in an Organized Health Care Education/Training Program; PCP Nurse Practitioner Family; Visit Provider Family Medicine
DX: I95.1 Orthostatic hypotension (principal); I44.2 Atrioventricular block, complete; J84.9 Interstitial pulmonary disease, unspecified; R06.02 Shortness of breath; Z95.0 Presence of cardiac pacemaker; H53.8 Other visual disturbances; I10 Essential (primary) hypertension; F32.A Depression, unspecified; K27.7 Chronic peptic ulcer, site unspecified, without hemorrhage or perforation; M47.817 Spondylosis without myelopathy or radiculopathy, lumbosacral region; M70.72 Other bursitis of hip, left hip; J45.909 Unspecified asthma, uncomplicated; K21.9 Gastro-esophageal reflux disease without esophagitis; R73.01 Impaired fasting glucose; I83.90 Asymptomatic varicose veins of unspecified lower extremity; K44.9 Diaphragmatic hernia without obstruction or gangrene; M54.16 Radiculopathy, lumbar region; E78.00 Pure hypercholesterolemia, unspecified; G47.00 Insomnia, unspecified; R79.89 Other specified abnormal findings of blood chemistry; R51.0 Headache with orthostatic component, not elsewhere classified; E87.6 Hypokalemia
CPT/HCPCS: 36415; 80048; 80053; 85027; 93005; 94640; 97110; 97112; 97161; 99223; 99285; J1650; 70450; 71046; 83735; 84484; 85025; 85049; 85379; 93010; 94664; 94760; 99232; 99233; 99239; J1885

== ENCOUNTER → 2022-09-21 10:05 | Outpatient (BNVA) | payer MEDICARE, SELFPAY | PROVIDERS: PCP Nurse Practitioner Family; Referring Provider Nurse Practitioner Family; Visit Provider Internal Medicine Cardiovascular Disease ==

== ENCOUNTER → 2022-09-21 10:41 | Outpatient (BNVA) | payer MEDICARE, SELFPAY | PROVIDERS: PCP Nurse Practitioner Family; Referring Provider Nurse Practitioner Family; Visit Provider Psychiatry & Neurology Neurology ==

== ENCOUNTER 2022-09-27 22:38 | Outpatient (CLI) | payer MEDICARE, SELFPAY ==
[2022-09-27 19:07] LABS: Anion Gap 11.2 mmol/L (3-11); BUN 19 mg/dL (7-18); CO2 23.8 mmol/L (21.0-32.0); CREATININE 0.9 mg/dL (0.55-1.02); Calcium 9.5 mg/dL (8.5-10.1); Chloride 107 mmol/L (98-107); Estimated GFR 64.63 (mL/min/1.73m2); Glucose 126 mg/dL (74-106); Potassium 4.3 mmol/L (3.5-5.1); Sodium 142 mmol/L (136-145)
== END 2022-09-27 22:39 | disposition home or self-care (01) ==
LOC: LBO 22:38
PROVIDERS: PCP Nurse Practitioner Family; Visit Provider Nurse Practitioner Acute Care
DX: E87.6 Hypokalemia (principal)
CPT/HCPCS: 36415; 80048

== ENCOUNTER 2023-01-05 13:50 | Outpatient (CLI) | payer MEDICARE, SELFPAY ==
--- NOTE | 2023-01-05 13:45 | RT.EKG_ITS ---
APPROVED REPORT Exam: Resting ECG Reason for Exam: bradycardia Patient Location: O HR:66 bpm ECG Measurements Heart Rate 66 AXIS DC 228 P -22 QRSd 142 QRS -68 QT 412 T 104 QTc 432 Conclusion Atrial-sensed ventricular-paced complexes...other complexes also detected No further analysis attempted due to paced rhythm
== END 2023-01-05 13:51 | disposition home or self-care (01) ==
LOC: DI.CM 13:51
PROVIDERS: PCP Nurse Practitioner Family; Visit Provider Nurse Practitioner Family
DX: R00.1 Bradycardia, unspecified (principal)
CPT/HCPCS: 93010

== ENCOUNTER → 2023-01-11 12:47 | Outpatient (BNVA) | payer MEDICARE, SELFPAY | PROVIDERS: PCP Nurse Practitioner Family; Referring Provider Nurse Practitioner Family; Visit Provider Physician Assistant Surgical | DX: J45.41 Moderate persistent asthma with (acute) exacerbation (principal); Z79.899 Other long term (current) drug therapy; Z79.51 Long term (current) use of inhaled steroids; G47.33 Obstructive sleep apnea (adult) (pediatric); I10 Essential (primary) hypertension; E11.9 Type 2 diabetes mellitus without complications | CPT/HCPCS: 99214 ==

== ENCOUNTER 2023-02-18 02:07 | Outpatient (CLI) | payer MEDICARE, SELFPAY ==
[2023-02-18 13:38] LABS: Anion Gap 8.4 mmol/L (3-11); BUN 20 mg/dL (7-18); CO2 29.6 mmol/L (21.0-32.0); Calcium 9.4 mg/dL (8.5-10.1); Chloride 104 mmol/L (98-107); Glucose 61 mg/dL (74-106); Potassium 3.9 mmol/L (3.5-5.1); Sodium 142 mmol/L (136-145)
== END 2023-02-18 02:08 | disposition home or self-care (01) ==
LOC: LBO 02:07
PROVIDERS: PCP Nurse Practitioner Family; Visit Provider Internal Medicine Cardiovascular Disease
DX: I10 Essential (primary) hypertension (principal)
CPT/HCPCS: 36415; 80048

== ENCOUNTER 2023-03-17 14:40 | Outpatient (CLI) | payer MEDICARE, SELFPAY ==
--- NOTE | 2023-03-17 14:30 | RT.EKG_ITS ---
APPROVED REPORT Exam: Resting ECG Reason for Exam: bradycardia Patient Location: O HR:72 bpm ECG Measurements Heart Rate 72 AXIS MT 234 P 0 QRSd 154 QRS -71 QT 375 T 110 QTc 411 Conclusion Sinus rhythm...normal P axis, V-rate 50- 99 Prolonged MT interval...MT >220, V-rate 50- 90 Right bundle branch block...QRSd>120, terminal axis(90,270) LVH with IVCD and secondary repol abnrm...multi-criteria, wQRSd, abnr ST-T Inferior infarct, acute...ST>0.10mV, T upright, II III aVF Artifact in lead(s) I,aVR,aVL,V1 ATRIAL SENCED VEVTRICULAR PACED COMPLEXES I have reviewed and interpreted ECG and agree with software generated interpretation.
== END 2023-03-17 14:41 | disposition home or self-care (01) ==
LOC: DI.CM 14:41
PROVIDERS: PCP Nurse Practitioner Family; Visit Provider Nurse Practitioner Family
DX: R00.1 Bradycardia, unspecified (principal)
CPT/HCPCS: 93010

== ENCOUNTER → 2023-04-15 08:48 | Outpatient (BNVA) | payer MEDICARE, SELFPAY | PROVIDERS: PCP Nurse Practitioner Family; Referring Provider Nurse Practitioner Family; Visit Provider Student in an Organized Health Care Education/Training Program | DX: J45.41 Moderate persistent asthma with (acute) exacerbation (principal); G47.33 Obstructive sleep apnea (adult) (pediatric) | CPT/HCPCS: 96372; 99214 ==

== ENCOUNTER → 2023-04-29 13:09 | Outpatient (BNVA) | payer MEDICARE, SELFPAY | PROVIDERS: PCP Nurse Practitioner Family; Referring Provider Nurse Practitioner Family; Visit Provider Student in an Organized Health Care Education/Training Program | DX: J45.41 Moderate persistent asthma with (acute) exacerbation (principal); G47.33 Obstructive sleep apnea (adult) (pediatric) | CPT/HCPCS: 99214 ==

== ENCOUNTER 2023-05-11 16:47 | Outpatient (CLI) | payer MEDICARE, SELFPAY ==
[2023-05-11 16:53] LABS: BUN 18 mg/dL (7-18); CREATININE 1.3 mg/dL (0.55-1.02); Calcium 9.5 mg/dL (8.5-10.1); Calculated LDL 43 mg/dL (<100); Chloride 105 mmol/L (98-107); Cholesterol 161 mg/dL (<200); Estimated GFR 41.31 (mL/min/1.73m2); Glucose 148 mg/dL (74-106); HDL Cholesterol 47 mg/dL (40-60); Potassium 3.5 mmol/L (3.5-5.1); Sodium 145 mmol/L (136-145); Triglyceride 359 mg/dL (<150)
== END 2023-05-11 16:48 | disposition home or self-care (01) ==
LOC: LBO 16:47
PROVIDERS: PCP Nurse Practitioner Family; Visit Provider Nurse Practitioner Family
DX: Z13.6 Encounter for screening for cardiovascular disorders (principal); Z13.1 Encounter for screening for diabetes mellitus
CPT/HCPCS: 36415; 80048; 80061

== ENCOUNTER → 2023-06-10 10:24 | Outpatient (BNVA) | payer MEDICARE, SELFPAY | PROVIDERS: PCP Nurse Practitioner Family; Referring Provider Nurse Practitioner Family; Visit Provider Student in an Organized Health Care Education/Training Program | DX: J45.41 Moderate persistent asthma with (acute) exacerbation (principal); G47.33 Obstructive sleep apnea (adult) (pediatric) | CPT/HCPCS: 99214 ==

== ENCOUNTER 2023-08-08 13:12 | Outpatient (CLI) | payer MEDICARE, SELFPAY | END 2023-08-08 13:13 | disposition home or self-care (01) | LOC: LBO 13:12 | PROVIDERS: PCP Nurse Practitioner Family; Referring Provider Nurse Practitioner Family; Visit Provider Nurse Practitioner Family | DX: E11.9 Type 2 diabetes mellitus without complications (principal) | CPT/HCPCS: 36415; 83036 ==

== ENCOUNTER 2023-08-10 12:20 | Outpatient (CLI) | payer MEDICARE, SELFPAY ==
--- NOTE | 2023-08-10 06:00 | DI.RAD_ITS ---
Exam(s) XR PAIN CLINIC LUMBAR SP 2V EXAM: XR PAIN CLINIC LUMBAR SP 2V CLINICAL HISTORY: Dx: Lumbar Spondylosis TECHNIQUE: 2D and realtime digital imaging was performed. CONTRAST MATERIAL: Refer to procedure report. COMPARISON: No exams were available for comparison FINDINGS: Fluoroscopy was provided for Dr. Gastelum during the performance of a lumbar radiofrequency ablation. P lease refer to the procedure report for complete details. Ka,r=7.88 mGy IMPRESSION: RADIATION DOSE DELIVERED: 0.0 0.0 0
[2023-08-10 12:46] VITALS: BP 154/72; PULSE 78; RESP 20; TEMP 36.7; O2SAT 95
[2023-08-10 13:15] VITALS: PULSE 81; RESP 17; O2SAT 99
[2023-08-10 13:20] VITALS: PULSE 85; RESP 16; O2SAT 97
[2023-08-10 13:30] VITALS: PULSE 84; RESP 17; O2SAT 96
[2023-08-10 13:40] VITALS: PULSE 85; RESP 21; O2SAT 96
[2023-08-10 13:45] VITALS: BP 173/82; PULSE 82
--- NOTE | 2023-08-10 13:53 | PDOC.PAIN_ITS ---
Date of service: 08/10/23 Time of Service: 13:53 Pain Managment Procedure Note Procedure Note Procedure Note: PROCEDURE NOTE Left Lumbar Medial Branch Blocks Date of Service: August 10, 2023 Patient: Teri Soto Provider: Gerardo Gastelum DO, MPH Teri Soto has been referred to the [facility] for lumbar medial branch blocks. Pre-operative diagnosis: Lumbar Spondylosis without Myelopathy Post-operative diagnosis: Same Pre-procedure pain: VAS= 5/10 COMMENTS: She accidentally ate a piece of toast 4 hours ago, so we did not give her IV medication. She understands and wants to proceed. She does have a pacemaker and will see cardiology after this procedure. Mei was interviewed and the medical records were reviewed. There were no medical, pharmacologic, radiographic or other structural contraindications to attempting fluoroscopically guided local anesthetic lumbar medial branch blocks. Risks and potential side effects were discussed. I also discussed the potent ial benefit(s) of the procedure with Teri, and voiced concerns were addressed. After Teri was completely informed about the procedure, the printed consent form was signed. A standard time-out procedure was performed. Teri was placed in the prone position on the fluoroscopy table. Automated blood pressure cuff and pulse oximeter were applied. The skin entry points for approaching the anatomic target points of the segmental medial branches of left L3,L4,L5 were identified with fluoroscopy and marked. The skin at the target site area was thoroughly prepared with Chlorhexadine. The skin was then draped. Next, a 25 gauge 3.5 spinal needle was placed under fluoroscopic guidance down on to the target point (the articular pillar) for each respective segmental medial branch. Position was confirmed in A/P and lateral views. Aspiration revealed no blood or clear fluid. Next, 0.25ml of omnipaque 240 was injected at each level. No contrast following a vascular or neural pattern was visualized under continuous fluoroscopy. Next, 0.25 ml of preservative-free 0.5% bupivicaine was injected at each level. There was no unusual discomfort expressed by Teri. The needles were withdrawn without difficulty. (49 mls of Omnipaque was wasted) Teri was observed and was without hemodynamic, neurologic, or allergic reactions.? Fluoroscopic images were digitally archived. Provacative testing using the Modified Tyler's facet loading test- Left side Directly before the block VAS (0-10) = 5/10 Five minutes after the block VAS (0-10) = 5/10 Percentage relief obtained with this diagnostic block 0% Any improved physical functioning directly after the blocks? Able to stand with less pain. Follow up plans and appointments were discussed with Teri. Teri was instructed to keep careful note of how the usual pain was modified by these injections. Specifically, to keep a pain diary for the next 4 hours using a numeric pain scale of 0-10 and report these results. Post procedure instruction was given as documented in the nursing documentation and having met discharge criteria, the patient was [facility]. Based on the medial branches blocked today, if they patient has adequate relief and we are able to proceed to radiofrequency ablation, the treatment should result in the denervation of the right L4-L5 and L5-S1 facet joints. We would expect to denervate a total of 2 facets during the radiofrequency ablation. COMMENTS: No apparent complications. Post-procedure pain: VAS= 5/10 Teri will call back with 0-4 hour post-procedure pain scores. I personally performed the entire procedure. GERARDO GASTELUM DO, MPH ABPM&R-subspecialty board certification in Pain Medicine [facility]
[2023-08-10] MEDS: Lidocaine 2% Multi-Dose 20 ML VIAL IJ (14:01)
[2023-08-10] MEDS: Bupivacaine 0.5% Pres-Free 10 ML VIAL IJ (14:01)
[2023-08-10] MEDS: methylPREDNISolone ACETATE 40 MG/ML VIAL IJ (14:01)
== END 2023-08-10 12:21 | disposition home or self-care (01) ==
LOC: PC 12:20
PROVIDERS: PCP Nurse Practitioner Family; Visit Provider Preventive Medicine Occupational Medicine
DX: M47.816 Spondylosis without myelopathy or radiculopathy, lumbar region (principal); M54.50 Low back pain, unspecified
CPT/HCPCS: 64635; 64636; 72100; 93280; J0665; J1010; J2003

== ENCOUNTER → 2023-08-10 14:26 | Outpatient (BNVA) | payer MEDICARE, SELFPAY | PROVIDERS: PCP Nurse Practitioner Family; Referring Provider Nurse Practitioner Family; Visit Provider Internal Medicine Cardiovascular Disease | DX: Z95.810 Presence of automatic (implantable) cardiac defibrillator (principal) | CPT/HCPCS: 93280 ==

== ENCOUNTER 2023-08-23 07:57 | Outpatient (REF) | payer MEDICARE, SELFPAY ==
--- NOTE | 2023-08-23 07:45 | SKI_PTH ---
PATIENT: Teri Soto LOC: [facility] U#:[id number] AGE/SX: 82/F ROOM: RE08/23/[address]: Jarrell Mcneal MD : 1940 BED: DIS: 08/23/2023 SPEC #: [id number] RECD: 08/23/23 13:40 STATUS: FABIAN REQ #: [id number] LAURA: 08/23/23 07:[address]: Jarrell Mcneal DEPT: Surgical Specimen RECD BY: Xenia Arevalo ENTERED: 08/23/23 13:41 SP TYPE: HARVEY PEÑA DR: Kodi Montez, CHAPO Tissues: 1 - SKIN BIOPSY(SHAVE/PUNCH) Procedures: SKIN LEVEL 4 Comments: [id number]
== END 2023-08-23 07:58 | disposition home or self-care (01) ==
LOC: LBN 07:57
PROVIDERS: PCP Nurse Practitioner Family; Visit Provider Otolaryngology
DX: L82.0 Inflamed seborrheic keratosis (principal)
CPT/HCPCS: 88305

== ENCOUNTER → 2023-09-13 11:04 | Outpatient (BNVA) | payer MEDICARE, SELFPAY | PROVIDERS: PCP Nurse Practitioner Family; Referring Provider Nurse Practitioner Family; Visit Provider Physician Assistant Surgical | DX: J45.41 Moderate persistent asthma with (acute) exacerbation (principal); G47.33 Obstructive sleep apnea (adult) (pediatric) | CPT/HCPCS: 99214 ==

== ENCOUNTER 2023-10-03 21:14 | Outpatient (REF) | payer MEDICARE, SELFPAY | END 2023-10-03 21:15 | disposition home or self-care (01) | LOC: NCHCN 21:14 | PROVIDERS: PCP Nurse Practitioner Family; Visit Provider Physician Assistant | DX: N39.0 Urinary tract infection, site not specified (principal) | CPT/HCPCS: 87077; 87086; 87186 ==

== ENCOUNTER → 2023-12-22 12:58 | Outpatient (BNVA) | payer MEDICARE, SELFPAY | PROVIDERS: PCP Nurse Practitioner Family; Referring Provider Nurse Practitioner Family; Visit Provider Physician Assistant Surgical | DX: J45.41 Moderate persistent asthma with (acute) exacerbation (principal); G47.33 Obstructive sleep apnea (adult) (pediatric) | CPT/HCPCS: 99214 ==

== ENCOUNTER 2023-12-22 14:39 | Outpatient (CLI) | payer MEDICARE, SELFPAY ==
[2023-12-22 13:59] LABS: Abs Immature Grans 0.05 10^3/uL (0.0-0.06); Absolute Eosinophil Count 0.64 10^3/uL (0.0-0.7); Absolute Lymphocyte Count 2.52 10^3/uL (1.2-3.4); Absolute Monocyte Count 0.92 10^3/uL (0.1-0.8); Absolute Neutrophil Count 3.91 10^3/uL (1.2-6.7); Basophils % 1.2 %; Eosinophils % 7.9 %; HCT 43.1 % (36.0-46.0); HGB 14.7 g/dL (11.2-15.7); Immature Grans % 0.6 %; MCH 30.7 pg (27.0-33.0); MCHC 34.1 % (32.0-36.0); MCV 90 fL (80-95); MPV 10.4 fL (8.0-11.0); Monocytes % 11.3 %; Platelet Count 232 10^3/uL (130-400); RBC 4.79 10^6/uL (3.93-5.22); RDW 11.9 % (11.7-14.6); RDW-SD 39.3 fL; WBC 8.14 10^3/uL (4.4-10.8)
== END 2023-12-22 14:40 | disposition home or self-care (01) ==
LOC: LBO 14:39
PROVIDERS: PCP Nurse Practitioner Family; Visit Provider Physician Assistant Surgical
DX: J45.909 Unspecified asthma, uncomplicated (principal); J45.41 Moderate persistent asthma with (acute) exacerbation; G47.33 Obstructive sleep apnea (adult) (pediatric)
CPT/HCPCS: 36415; 99214; 85025

== ENCOUNTER → 2024-01-19 12:23 | Outpatient (BNVA) | payer MEDICARE, SELFPAY | PROVIDERS: PCP Nurse Practitioner Family; Referring Provider Nurse Practitioner Family; Visit Provider Physician Assistant Surgical | DX: J45.50 Severe persistent asthma, uncomplicated (principal) | CPT/HCPCS: 96372 ==

== ENCOUNTER 2024-03-09 14:55 | Emergency (ER) | payer MEDICARE, SELFPAY ==
[2024-03-09 14:58] VITALS: BP 157/67; PULSE 87; RESP 14; TEMP 36.6; O2SAT 97
--- NOTE | 2024-03-09 15:31 | ED.GENADUL_ITS ---
Discharge Plan Discharge Details Chief Complaint: Abd Prob Primary Care Provider: Kodi Montez ED Provider: John Brantley Home Meds and New Rx's Prescriptions: No Action albuterol sulfate [ProAir HFA] 90 mcg/actuation HFA aerosol inhaler 2 puff Inhalation QID PRN (Reason: asthma) Qty: 3 0RF Rx Instructions: J45.41 (DME) blood-glucose meter [FreeStyle Ledbetter Lite] Kit See Rx Instructions .Route Qty: 1 1RF Rx Instructions: Test twice daily every other day, AM and Fasting before evening meal cholecalciferol (vitamin D3) 50 mcg (2,000 unit) tablet 50 mcg PO DAILY fluticasone propion-salmeterol [Wixela Inhub] 250-50 mcg/dose blister with device 1 inh inhalation BID Dupixent Pen 300 mg/2 mL pen injector 300 mg subcut Q2W Qty: 4 11RF esomeprazole magnesium [Nexium] 40 mg capsule,delayed release(DR/EC) 20 mg PO BID Qty: 180 4RF albuterol sulfate 1.25 mg/3 mL solution for nebulization 1.25 mg inhalation QID PRN (Reason: shortness of breath or wheezing) Qty: 540 7RF fluoxetine [Prozac] 20 mg capsule 20 mg PO DAILY Qty: 90 4RF montelukast [Singulair] 10 mg tablet 10 mg PO DAILY Qty: 90 3RF simvastatin [Zocor] 40 mg tablet 40 mg PO DAILY Qty: 90 3RF glipizide 10 mg tablet 10 mg PO DAILY Qty: 90 3RF (DME) FreeStyle Lite Strips Strip See Rx Instructions .Route Qty: 100 3RF Rx Instructions: Test 2x daily every other day, AM and before evening meal (DME) lancets [FreeStyle Lancets] 28 gauge misc See Rx Instructions .Route Qty: 100 3RF Rx Instructions: Test twice daily every other day. fluticasone propionate [Flonase] 16 GM spray,suspension 2 spry NS DAILY PRN lisinopril 40 mg tablet 20 mg PO DAILY HPI General Date/Time Provider Initiated Documentation: 03/09/24 15:31 . HPI Narrative: Mrs. Asencio is an 83-year-old lady who presented to the emergency room for evaluation of 6 weeks of left-sided flank/low back pain. The pain is worse with changing positions. She has had colitis in the past and believes that this is not colitis since she has not had any nausea or vomiting. She had 1 episode of mild diarrhea 2 days ago but otherwise is going to the bathroom normally. She has had no fevers no chills. She does not believe that this is her sciatica since her sciatica is very typical low back pain on the left that radiates to the posterior aspect of her left leg. She states she was seen in [place] in the [facility] where she was waiting for her daughter on the [place] of [place], on 1223 at an urgent care. They took a urine sample and put her on 6 days of antibiotics which according to her did not provide any relief. She has been back here in [place] for the past week. She did not reach out to her PCP for the further evaluation stating that she would have been sent to the emergency department. She does endorse some urinary frequency which she believes is somewhat her norm. No hematuria. Related Data Home Medications ?Medication ?Instructions ?Recorded ?Confirmed fluticasone propionate 50 2 spry NS DAILY PRN 06/07/13 03/09/24 mcg/actuation nasal spray,suspension (Flonase) esomeprazole magnesium 40 mg 20 mg (1/2 x 40 mg) PO BID #180 07/31/19 03/09/24 capsule,delayed release (Nexium) tab-caps albuterol sulfate 90 mcg/actuation 2 puff inhalation QID PRN asthma 12/16/21 03/09/24 aerosol inhaler (ProAir HFA) #3 ea albuterol sulfate 1.25 mg/3 mL 1.25 mg (3 mL) inhalation QID PRN 09/06/22 03/09/24 solution for nebulization shortness of breath or wheezing #540 mL blood-glucose meter (FreeStyle #1 ea 10/08/22 03/09/24 Ledbetter Lite kit) cholecalciferol (vitamin D3) 50 50 mcg PO DAILY 04/15/23 03/09/24 mcg (2,000 unit) tablet fluticasone 250 mcg-salmeterol 50 1 inh inhalation BID 04/15/23 03/09/24 mcg/dose blistr powdr for inhalation (Wixela Inhub) lisinopril 40 mg tablet 20 mg PO DAILY 08/10/23 03/09/24 fluoxetine 20 mg capsule (Prozac) 20 mg PO DAILY #90 caps 08/17/23 03/09/24 montelukast 10 mg tablet 10 mg PO DAILY #90 tabs 10/07/23 03/09/24 (Singulair) simvastatin 40 mg tablet (Zocor) 40 mg PO DAILY #90 tab-caps 10/07/23 03/09/24 glipizide 10 mg tablet 10 mg PO DAILY #90 tabs 12/15/23 03/09/24 blood sugar diagnostic (FreeStyle #100 ea 12/19/23 03/09/24 Lite Strips) lancets 28 gauge (FreeStyle #100 ea 12/19/23 03/09/24 Lancets) dupilumab 300 mg/2 mL subcutaneous 300 mg (2 mL) subcut Q2W #4 mL 12/22/23 03/09/24 pen injector (DiObex) Previous Rx's ?Medication ?Instructions ?Recorded esomeprazole magnesium 40 mg 20 mg (1/2 x 40 mg) PO BID #180 07/31/19 capsule,delayed release (Nexium) tab-caps albuterol sulfate 90 mcg/actuation 2 puff inhalation QID PRN asthma 12/16/21 aerosol inhaler (ProAir HFA) #3 ea albuterol sulfate 1.25 mg/3 mL 1.25 mg (3 mL) inhalation QID PRN 09/06/22 solution for nebulization shortness of breath or wheezing #540 mL blood-glucose meter (FreeStyle #1 ea 10/08/22 Ledbetter Lite kit) fluoxetine 20 mg capsule (Prozac) 20 mg PO DAILY #90 caps 08/17/23 montelukast 10 mg tablet 10 mg PO DAILY #90 tabs 10/07/23 (Singulair) simvastatin 40 mg tablet (Zocor) 40 mg PO DAILY #90 tab-caps 10/07/23 glipizide 10 mg tablet 10 mg PO DAILY #90 tabs 12/15/23 blood sugar diagnostic (FreeStyle #100 ea 12/19/23 Lite Strips) lancets 28 gauge (FreeStyle #100 ea 12/19/23 Lancets) dupilumab 300 mg/2 mL subcutaneous 300 mg (2 mL) subcut Q2W #4 mL 12/22/23 pen injector (DiObex) Allergies Allergy/AdvReac Type Severity Reaction Status Date / Time adhesive Allergy Severe SKIN RASH Verified 03/09/24 15:07 Sulfa (Sulfonamide Allergy Intermediate ITCHING Verified 03/09/24 15:07 Antibiotics) losartan Allergy Unknown SWELLING, Verified 03/09/24 15:07 ITCHING hydrocodone AdvReac Itching Verified 03/09/24 15:07 with high doses General Stated Complaint: Abd Prob CLAUDIA: 3 Review of Systems Constitutional Comments: 10 point review of system is negative unless otherwise specified in the HPI Exam Narrative Exam Narrative: General: A,A Ox3, Calm, no apparent distress, well developed, pleasant and cooperative Head Size/Shape: normocephalic, atraumatic Eyes Pupils: PERRLA Extraocular Mobility: intact and symmetrical Conjunctiva: non-injected, anicteric, no discharge Ears, Nose, Throat Nares: patent bilaterally Oral Cavity: moist Neck: supple Respiratory Respiratory Effort: no dyspnea Heart Auscultation: Pulse Quality: +2 equal bilaterally, location(s) radial Abdomen Inspection and Palpation: soft, non-tender, non-distended, no hepatosplenomegaly No CVAT Musculoskeletal System Joints, Bones, and Muscles: no deformities Extremities: warm and well-perfused, no cyanosis, capillary refill <2 seconds Skin Skin Inspection: no rash, no lesions, no bruising Neurological Motor: normal tone, normal strength, moving all extremities equally Psychiatric: good insight, good judgement, normal mood and affect Course Vital Signs Vital signs: Vital Signs Temperature 36.6 C 03/09/24 14:58 Pulse 87 03/09/24 14:58 Respiratory Rate 14 03/09/24 14:58 Blood Pressure 157/67 H 03/09/24 14:58 Pulse Oximetry 97 03/09/24 14:58 Temperature 36.6 C 03/09/24 14:58 Temperature Source Oral 03/09/24 14:58 Pulse 87 03/09/24 14:58 Respiratory Rate 14 03/09/24 14:58 Blood Pressure 157/67 H 03/09/24 14:58 Blood Pressure Position Sitting 03/09/24 14:58 Pulse Oximetry 97 03/09/24 14:58 Oxygen Delivery Method Room Air 03/09/24 14:58 Oxygen Flow Rate 0 03/09/24 14:58 Pain Level 8 03/09/24 14:58 Medical Decision Making Medical Records Medical records narrative: 83-year-old lady presented to the emergency room for evaluation of left flank pain that has gotten worse for the past 4 to 5 days. She was treated for UTI approximately 10 days ago for 5 days with nitrofurantoin 100 mg twice daily. She has been asked to go follow-up with the ordering provider in [place] was on her way back to [place] when this occurred. Her symptoms are concerning for maybe early pyelonephritis. She does have significant amount of white blood cells in her urine as well as moderate amounts of bacteria and what appears to be a clean-catch urine. At this time I believe that she would benefit from 7-day course of Keflex. Prescription will be sent to her pharmacy. Quality:SDOH Health Related Social Needs: No Data to Display PFSH All Active Problems Skin lesion (Acute) ELGIN (obstructive sleep apnea) (Chronic) Diabetes mellitus (Chronic) Hypokalemia (Acute) Chronic headache (Acute) Orthostatic hypotension (Acute) Visual changes (Acute) Episodic lightheadedness (Acute) Increasing shortness of breath (Acute) Pacemaker (Chronic) [employer] placed [place] [facility] by [place]. Nicholson 07/31/21. RH Depression (Chronic) a. well controlled on SSRI PUD (peptic ulcer disease) (Chronic) Overweight (Chronic) Fibrocystic breast (Chronic) H/O surgical procedure (Chronic) a. Bilateral shoulder surgeries b. Right medial meniscus repair c. Rahman's cyst surgery d. Cataract surgery x 2 e. S/p Cholecystectomy f. S/p hysterectomy for benign reasons g. s/p breast biopsy h. 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 Follow-up in approximately 2 weeks for use of dural Jac as a Visco supplement prior to her trip to [facility]. Polyp of colon (Chronic) Hiatal hernia (Acute) Fracture, pelvis closed (Chronic) Left lumbar radiculopathy (Acute) COVID-19 (Acute) Onset~03/2021, Onset 05/26/22 Urinary tract infection (Acute) Liver cyst (Acute) Medical History History of pacemaker Interstitial lung disease a. due to h/o psittacosis approximately 14-15 years ago Headache Peptic ulcer Unilateral inguinal hernia Acute bacterial bronchitis Arthritis of left knee s/p total knee Asthma GERD (gastroesophageal reflux disease) Hypercholesterolemia Gastroparesis Osteoarthritis Insomnia H/O: pneumonia Surgical History History of tonsillectomy and adenoidectomy Status post right knee replacement History of cataract removal with insertion of prosthetic lens Status post arthroscopy of shoulder Status post breast biopsy Status post cholecystectomy Status post laparoscopic hysterectomy Hysterectomy, Laproscopic 1 ovary remains FX ARM (02/15/14) PLATE AND SCREWS Cholecystectomy Extraction of cataract 06/11/13; RIGHT 06/26/13; LEFT Biopsy of breast (~2005) LEFT Arthroscopy, Shoulder LEFT Family History Mother Diabetes Essential hypertension Depression Heart disease Hyperlipidemia Father , WW II at age 24. No problems noted. Brother Diabetes Essential hypertension Hyperlipidemia Neoplasm MELANOMA Grandfather Diabetes Essential hypertension Grandfather Essential hypertension Heart disease Hyperlipidemia Grandmother Essential hypertension Neoplasm Stroke Grandmother Diabetes Blood disease Neoplasm COLON FAMILY HISTORY Myocardial infarction Son Substance abuse Depression Hyperlipidemia Daughter Diabetes Depression Hyperlipidemia Asthma Other Urinary tract infection Social History Smoking/Tobacco Use Status: Never Smoking risk assessment performed?: Yes Alcohol Intake: current Alcohol Intake frequency: a few times a month Alcohol type: hard liquor Drug use: Never Substance use type: does not use Caregiver/Support person: No Household members: none Housing: other Do you need help understanding health information?: Never Pets and animals: No Current gender identity: female What is your relationship status?: How often do you talk on the phone with friends or family?: three or more times per week How often do you get together with friends or relatives?: decline to answer How often do you attend mormonism or mormon services?: decline to answer Do you belong to any clubs or organized social groups?: yes Panel score (0-1 are the most socially isolated patients): 2 What type of physical activity do you participate in: walking Janet/Druze: None Special janet needs: No Seatbelt use: always Drive 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 Lives by self.
[2024-03-09 15:41] LABS: Bilirubin Small (Negative); Blood Negative (Negative); Clarity Sl Cloudy (Clear); Glucose Negative (Negative); Ketones Trace mg/dL (Negative); Leukocyte Esterase Small (Negative); Nitrite Negative (Negative); Specific Gravity >= 1.030 (1.005-1.025); Urobilinogen 0.2 mg/dL (Up to 0.2); pH 5.5 (5-8)
[2024-03-09 15:51] LABS: Bacteria Moderate HPF (Negative); C & S Indicated? Yes; Casts Negative LPF (Negative); Crystals Negative HPF (Negative); Epithelial Cells Rare HPF (Negative); Mucus Moderate (Negative); RBC 0-2 HPF (0-2); WBC 20-50 HPF (0-5)
[2024-03-09] MEDS: Cephalexin 500 MG CAP 1000 MG PO (16:18)
[2024-03-09 16:19] VITALS: BP 114/74; PULSE 82; RESP 18; TEMP 36.6; O2SAT 94
[2024-03-09 16:24] VITALS: BP 114/74; PULSE 82; RESP 18; TEMP 36.6; O2SAT 94
--- NOTE | 2024-03-11 08:34 | NUR.NOTE ---
Access chart to see if antibiotic was dispensed on discharge, for the urine culture. Nursing Note:
== END 2024-03-09 16:25 | disposition home or self-care (01) ==
PROVIDERS: Emergency Provider Emergency Medicine; PCP Nurse Practitioner Family
DX: R10.32 Left lower quadrant pain (principal); N39.0 Urinary tract infection, site not specified; E11.9 Type 2 diabetes mellitus without complications; I10 Essential (primary) hypertension; E78.5 Hyperlipidemia, unspecified; J84.9 Interstitial pulmonary disease, unspecified; Z79.84 Long term (current) use of oral hypoglycemic drugs; Z95.0 Presence of cardiac pacemaker
CPT/HCPCS: 99283; 81003; 81015; 87086

== ENCOUNTER → 2024-03-21 13:52 | Outpatient (BNVA) | payer MEDICARE, SELFPAY | PROVIDERS: PCP Nurse Practitioner Family; Referring Provider Nurse Practitioner Family; Visit Provider Physician Assistant Surgical | DX: J45.41 Moderate persistent asthma with (acute) exacerbation (principal); G47.33 Obstructive sleep apnea (adult) (pediatric) | CPT/HCPCS: 99214 ==

== ENCOUNTER 2024-05-02 14:06 | Emergency (ER) | payer MEDICARE, SELFPAY ==
[2024-05-02] VITALS (10 sets, daily range): BP systolic 109–127; BP diastolic 65–74; PULSE 74–100; RESP 18; TEMP 36.6; O2SAT 94–95
--- NOTE | 2024-05-02 14:15 | RT.EKG_ITS ---
APPROVED REPORT Exam: Resting ECG Reason for Exam: Tachycardia, irregular pulse, SOB Patient Location: E HR:72 bpm ECG Measurements Heart Rate 72 AXIS AZ 76 P [id number] QRSd 144 QRS -79 QT 410 T 115 QTc 451 Conclusion A-V dual-paced complexes, irregular rhythm Sgarbossa negative
[2024-05-02 15:39] LABS: Bilirubin Negative (Negative); Blood Negative (Negative); Clarity Clear (Clear); Glucose Negative (Negative); Ketones Negative (Negative); Leukocyte Esterase Trace (Negative); Nitrite Negative (Negative)
--- NOTE | 2024-05-02 15:47 | ED.GENADUL_ITS ---
Discharge Plan Disposition Patient Disposition: Home Condition: Stable Discharge Details Clinical Impression: Abdominal pain of unknown cause Primary Care Provider: Kodi Montez ED Provider: Hermelindo Roberson Home Meds and New Rx's Prescriptions: Continued albuterol sulfate [ProAir HFA] 90 mcg/actuation HFA aerosol inhaler 2 puff Inhalation QID PRN (Reason: asthma) Qty: 3 0RF Rx Instructions: J45.41 (DME) blood-glucose meter [FreeStyle [place] Lite] Kit See Rx Instructions .Route Qty: 1 1RF Rx Instructions: Test twice daily every other day, AM and Fasting before evening meal cholecalciferol (vitamin D3) 50 mcg (2,000 unit) tablet 50 mcg PO DAILY fluticasone propion-salmeterol [Wixela Inhub] 250-50 mcg/dose blister with device 1 inh inhalation BID Dupixent Pen 300 mg/2 mL pen injector 300 mg subcut Q2W Qty: 4 11RF esomeprazole magnesium [Nexium] 40 mg capsule,delayed release(DR/EC) 20 mg PO BID Qty: 180 4RF lisinopril 20 mg tablet 20 mg PO DAILY Patient Comments: TAKE 1 TABLET BY MOUTH DAILY FOR HIGH BLOOD PRESSURE prednisone 20 mg tablet 10 - 60 mg PO DAILY Qty: 11 0RF Rx Instructions: take 2 tabs x 3 days , then 1 tab x 3 days, then 1/2 tab x 4 days cyclobenzaprine 10 mg tablet 10 mg PO HS PRN (Reason: muscle spasm) Qty: 20 0RF albuterol sulfate 1.25 mg/3 mL solution for nebulization 1.25 mg inhalation QID PRN (Reason: shortness of breath or wheezing) Qty: 540 7RF fluoxetine [Prozac] 20 mg capsule 20 mg PO DAILY Qty: 90 4RF montelukast [Singulair] 10 mg tablet 10 mg PO DAILY Qty: 90 3RF simvastatin [Zocor] 40 mg tablet 40 mg PO DAILY Qty: 90 3RF glipizide 10 mg tablet 10 mg PO DAILY Qty: 90 3RF (DME) FreeStyle Lite Strips Strip See Rx Instructions .Route Qty: 100 3RF Rx Instructions: Test 2x daily every other day, AM and before evening meal (DME) lancets [FreeStyle Lancets] 28 gauge misc See Rx Instructions .Route Qty: 100 3RF Rx Instructions: Test twice daily every other day. gabapentin 300 mg capsule 300 mg PO BID Qty: 180 3RF fluticasone propionate [Flonase] 16 GM spray,suspension 2 spry NS DAILY PRN Discharge Instructions Instructions: Abdominal Pain, Adult ED Additional Instructions: You were seen in the emergency department for your abdominal pain of uncertain cause, there is no evidence of any colitis or bowel or kidney problems on your CT scan, your blood work shows no signs of major infection, no UTI. This may be abdominal wall muscle strain, please take regular dose of Tylenol and ibuprofen as tolerated, please apply gentle heat to the area, please keep a close eye on your condition and return for any acute worsening or other emergent concerns. Referrals: Kodi Montez NP [Primary Care Provider] - Discharge Data Discharge Date/Time-TO BE ENTERED AT DEPARTURE: 05/02/24 19:34 HPI General Date/Time Provider Initiated Documentation: 05/02/24 14:47 . HPI Narrative: 83 year-old female presents to ED today by POV/ambulating with a chief complaint of L lower abdominal/groin/flank pain with onset for the past few weeks- with history of kidney infection that she finished her antibiotics for. Quality described as generally unwell, questions her blood pressure/palpitations to etl analyst developer, no radiation to respiratory distress, chest pain, fever, nausea/vomiting, dysuria, lack of urine output. Severity is described as moderate. Palliating factors include nothing specific attempted. Provoking factors include nothing specific. Patient not anticoagulated. Related Data Home Medications ?Medication ?Instructions ?Recorded ?Confirmed fluticasone propionate 50 2 spry NS DAILY PRN 06/07/13 05/02/24 mcg/actuation nasal spray,suspension (Flonase) esomeprazole magnesium 40 mg 20 mg (1/2 x 40 mg) PO BID #180 07/31/19 05/02/24 capsule,delayed release (Nexium) tab-caps albuterol sulfate 90 mcg/actuation 2 puff inhalation QID PRN asthma 12/16/21 05/02/24 aerosol inhaler (ProAir HFA) #3 ea albuterol sulfate 1.25 mg/3 mL 1.25 mg (3 mL) inhalation QID PRN 09/06/22 05/02/24 solution for nebulization shortness of breath or wheezing #540 mL blood-glucose meter (FreeStyle #1 ea 10/08/22 05/02/24 Stratton Lite kit) cholecalciferol (vitamin D3) 50 50 mcg PO DAILY 04/15/23 05/02/24 mcg (2,000 unit) tablet fluticasone 250 mcg-salmeterol 50 1 inh inhalation BID 04/15/23 05/02/24 mcg/dose blistr powdr for inhalation (Wixela Inhub) fluoxetine 20 mg capsule (Prozac) 20 mg PO DAILY #90 caps 08/17/23 05/02/24 montelukast 10 mg tablet 10 mg PO DAILY #90 tabs 10/07/23 05/02/24 (Singulair) simvastatin 40 mg tablet (Zocor) 40 mg PO DAILY #90 tab-caps 10/07/23 05/02/24 glipizide 10 mg tablet 10 mg PO DAILY #90 tabs 12/15/23 05/02/24 blood sugar diagnostic (FreeStyle #100 ea 12/19/23 05/02/24 Lite Strips) lancets 28 gauge (FreeStyle #100 ea 12/19/23 05/02/24 Lancets) dupilumab 300 mg/2 mL subcutaneous 300 mg (2 mL) subcut Q2W #4 mL 12/22/23 05/02/24 pen injector ([employer]) cyclobenzaprine 10 mg tablet 10 mg PO HS PRN muscle spasm #20 03/29/24 05/02/24 tabs lisinopril 20 mg tablet 20 mg PO DAILY 03/29/24 05/02/24 prednisone 20 mg tablet 10 - 60 mg (0.5 - 3 x 20 mg) PO 03/29/24 05/02/24 DAILY #11 tabs gabapentin 300 mg capsule 300 mg PO BID #180 caps 04/25/24 05/02/24 Previous Rx's ?Medication ?Instructions ?Recorded esomeprazole magnesium 40 mg 20 mg (1/2 x 40 mg) PO BID #180 07/31/19 capsule,delayed release (Nexium) tab-caps albuterol sulfate 90 mcg/actuation 2 puff inhalation QID PRN asthma 12/16/21 aerosol inhaler (ProAir HFA) #3 ea albuterol sulfate 1.25 mg/3 mL 1.25 mg (3 mL) inhalation QID PRN 09/06/22 solution for nebulization shortness of breath or wheezing #540 mL blood-glucose meter (FreeStyle #1 ea 10/08/22 Strat[place] Lite kit) fluoxetine 20 mg capsule (Prozac) 20 mg PO DAILY #90 caps 08/17/23 montelukast 10 mg tablet 10 mg PO DAILY #90 tabs 10/07/23 (Singulair) simvastatin 40 mg tablet (Zocor) 40 mg PO DAILY #90 tab-caps 10/07/23 glipizide 10 mg tablet 10 mg PO DAILY #90 tabs 12/15/23 blood sugar diagnostic (FreeStyle #100 ea 12/19/23 Lite Strips) lancets 28 gauge (FreeStyle #100 ea 12/19/23 Lancets) dupilumab 300 mg/2 mL subcutaneous 300 mg (2 mL) subcut Q2W #4 mL 12/22/23 pen injector ([employer]) cyclobenzaprine 10 mg tablet 10 mg PO HS PRN muscle spasm #20 03/29/24 tabs prednisone 20 mg tablet 10 - 60 mg (0.5 - 3 x 20 mg) PO 03/29/24 DAILY #11 tabs gabapentin 300 mg capsule 300 mg PO BID #180 caps 04/25/24 Allergies Allergy/AdvReac Type Severity Reaction Status Date / Time adhesive Allergy Severe SKIN RASH Verified 05/02/24 14:30 Sulfa (Sulfonamide Allergy Intermediate ITCHING Verified 05/02/24 14:30 Antibiotics) losartan Allergy Unknown SWELLING, Verified 05/02/24 14:30 ITCHING hydrocodone AdvReac Itching Verified 05/02/24 14:30 with high doses General Stated Complaint: FlankPain CLAUDIA: 3 Review of Systems All systems reviewed & are unremarkable except as noted in HPI and below Exam Narrative Exam Narrative: GENERAL APPEARANCE: Well-nourished, non-toxic, awake and alert, atraumatic, no acute distress. SKIN: Warm, pink, dry, intact, without rashes/lesions/ulcerations. HEAD: Normocephalic, atraumatic, normal hair distribution for gender/age. EYES: Normal conjunctiva, no exudates on lids/lashes. ENT: Nares patent, no circumoral cyanosis, no facial swelling NECK: Supple, trachea midline, painless cervical ROM. LUNGS/CHEST: Non-labored respirations, normal A/P diameter, symmetrical expansion, no chest wall deformity HEART (CV/PV): No peripheral edema, no JVD. ABDOMEN: Soft, non-distended, no guarding, left lower quadrant tenderness canal without palpable swelling, no CVA tenderness to percussion bilaterally, no Rovsing's or rebound tenderness. MSK: Normal ROM, no swelling/deformity to bilateral UEs or LEs, moving all extremities without weakness, no cyanosis, spine midline without tenderness, normal curvature. NEURO: Mental Status AAOx4 - alert to person, place, time, events No facial droop, no forehead involvement. Motor: No focal weakness - strength 5/5 in bilateral UEs and LEs, proximal and distal, symmetric. Sensory: sensation intact to light touch globally. Gait normal: patient ambulated without ataxia into ED room. PSYCH: euthymic, cooperative, pleasant, appropriate speech Course Vital Signs Vital signs: Vital Signs Temperature 36.6 C 05/02/24 14:17 Pulse 100 H 05/02/24 14:17 Respiratory Rate 18 05/02/24 14:17 Blood Pressure 119/69 05/02/24 14:17 Pulse Oximetry 94 05/02/24 14:17 Temperature 36.6 C 05/02/24 15:21 Temperature Source Oral 05/02/24 15:21 Pulse 100 H 05/02/24 15:21 Pulse 74 05/02/24 15:41 Respiratory Rate 18 05/02/24 15:21 Blood Pressure 119/69 05/02/24 15:21 Blood Pressure Position Sitting 05/02/24 15:21 Pulse Oximetry 94 05/02/24 15:21 Oxygen Delivery Method Room Air 05/02/24 15:21 Oxygen Flow Rate 0 05/02/24 15:21 Pain Level 6 05/02/24 15:43 Medical Decision Making This dictation utilizes [id number] dictation software and may contain unedited grammatical errors. 83 year-old female presents to ED today by POV/ambulating with a chief complaint of L lower abdominal/groin/flank pain with onset for the past few weeks- with history of kidney infection that she finished her antibiotics for. Quality described as generally unwell, questions her blood pressure/palpitations to etl analyst developer, no radiation to respiratory distress, chest pain, fever, nausea/vomiting, dysuria, lack of urine output. Severity is described as moderate. Palliating factors include nothing specific attempted. Provoking factors include nothing specific. Patients' medical history: History of p acemaker, interstitial lung disease, unilateral inguinal hernia, asthma, diabetes mellitus, hypertension, urinary tract infection, left lumbar radiculopathy. Family and social history: Noncontributory. Pertinent exam findings / vital signs include left lower quadrant tenderness around the inguinal canal, no left CVA tenderness to percussion, no Rovsing's, no McBurney's point tenderness, no suprapubic tenderness. Differential / pathologies of concern include colitis, diverticulitis, hernia, pyelonephritis, UTI, ureteral colic. Diagnostic studies of: -CBC, CMP, lactate, lipase, UA, CT ABD/pelvis with contrast. -CBC shows no leukocytosis -CMP without HIRAM or actionable abnormality -Lactate negative -UA shows no evidence of hematuria or UTI -Lipase negative -CT shows no acute abdominal or pelvic process, no hernia, no diverticulitis, no dilation of the renal system Interventions of: -P.o. Tylenol. ED Course/Assessment/Plan: 83-year-old female presents with left groin pain, recent treatment for pyelonephritis with completion of antibiotics, CT is negative for any acute process and laboratory and urine studies indicate no suspicion for infectious or stone pathology, I question whether this is from abdominal wall muscle strain, has no evidence of hernia counseled her on using regular dose of Tylenol and Motrin as needed for pain and apply gentle heat to the area, recommend follow-up with her primary care provider with strict return criteria for any acute worsening especially with fever, intractable nausea or vomiting, bowel or urinary changes. Findings not consistent with pyelonephritis, renal stone, sepsis, diverticulitis, hernia, incarceration. Disposition of Abdominal Pain of Unknown Cause. Patient verbalized understanding of the plan and return to ED criteria and engaged in shared decision making. Medical Records Medical records reviewed: Yes I reviewed the patient's medical records. Imaging Data Radiologic Study: Attestation: I personally reviewed and interpreted this imaging study as follows: Imaging: CT Scan Radiologist's impression: EXAM: CT ABDOMEN PELVIS W CLINICAL HISTORY: LLQ tender, inguinal hernia? TECHNIQUE: Imaging Protocol: Axial computed tomography images with coronal and sagittal reformatted images were created and reviewed. CONTRAST MATERIAL: Intravenous: Omnipaque 350 Contrast volume:75 mL Oral: No COMPARISON: CT CT RENAL COLIC WO from 03/15/2022 FINDINGS: ABDOMEN: Lung Bases: Calcified granuloma seen in the right lower lobe. No focal consolidating infiltrates are seen in the lung bases. Liver: There is decreased attenuation of the liver suggesting fatty infiltration. There is a simple cyst in the left lobe of the liver. No suspicious hepatic masses are present. Portal, Superior Mesenteric, and Splenic Veins: Unremarkable. Gallbladder and Biliary Tract: Status post cholecystectomy. No significant biliary ductal dilatation is present. Pancreas: Normal density, no abnormal calcifications or inflammatory process. Spleen: Normal. Adrenals: No masses seen. Kidneys: Normal size, contour and axis. No radiodense stones or obstructive uropathy. No masses seen. Abdominal Aorta: Abdominal portion non-dilated. Atherosclerotic calcification is present. Bowel: There is diverticulosis seen in the colon, but no evidence of acute diverticulitis. There is a diverticulum in the duodenum adjacent to the head of the pancreas. There is no evidence of bowel wall thickening or obstruction. There is no pneumatosis. There is no evidence of appendicitis. Peritoneal Cavity: No ascites, collection or mesenteric inflammatory response. No free air. Lymph Nodes: Within normal limits. Bones: Within normal limits for the patient's age. There are old healed right inferior and superior pubic rami fractures. 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 There is an unchanged depression of the superior endplate of L3. Soft Tissues: Unremarkable. PELVIS: Bladder: Symmetric distention, no gross wall thickening. Reproductive Organs: Status post hysterectomy. Lymph Nodes: Within normal limits. Bones: Within normal limits for the patient's age. IMPRESSION: 1. No acute abdominal or pelvic process. 2. No evidence of a left inguinal hernia, mass or adenopathy. 3. Colonic diverticulosis without evidence of acute diverticulitis. Lab Data Lab results reviewed: Yes I reviewed the patient's lab results. Labs: Laboratory Tests Range/Units 05/02/24 05/02/24 15:26 16:50 WBC (4.4-10.8) 10^3/uL 6.25 RBC (3.93-5.22) 10^6/uL 4.87 Hgb (11.2-15.7) g/dL 14.8 Hct (36.0-46.0) % 43.5 MCV (80-95) fL 89 MCH (27.0-33.0) pg 30.4 MCHC (32.0-36.0) % 34.0 RDW (11.7-14.6) % 12.1 Plt Count (130-400) 10^3/uL 215 MPV (8.0-11.0) fL 10.2 Immature Gran % % 0.6 Neutrophils % % 53.6 Lymphocytes % % 30.9 Monocytes % % 11.7 Eosinophils % % 2.2 Basophils % % 1.0 Nucleated RBC % (0.0-0.3) % 0.0 Absolute Neutrophils (1.2-6.7) 10^3/uL 3.35 Absolute Lymphocytes (1.2-3.4) 10^3/uL 1.93 Absolute Monocytes (0.1-0.8) 10^3/uL 0.73 Absolute Eosinophils (0.0-0.7) 10^3/uL 0.14 Absolute Basophils (0.0-0.2) 10^3/uL 0.06 VBG Lactate (<or=2.0) mmol/L 1.4 Sodium (136-145) mmol/L 144 Potassium (3.5-5.1) mmol/L 4.5 Chloride (98-107) mmol/L 108 H Carbon Dioxide (21.0-32.0) mmol/L 26.8 Anion Gap (3-11) mmol/L 9.2 BUN (7-18) mg/dL 21 H Creatinine (0.55-1.02) mg/dL 0.9 Est GFR (CKD-EPI 2020) (mL/min/1.73m2) 63.83 Glucose (74-106) mg/dL 72 L Calcium (8.5-10.1) mg/dL 9.4 Total Bilirubin (0.2-1.0) mg/dL 1.54 H AST (15-37) U/L 34 ALT (14-59) U/L 39 Alkaline Phosphatase (46-116) U/L 63 Total Protein (6.4-8.2) g/dL 7.2 Albumin (3.4-5.0) g/dL 4.0 Lipase (<78) U/L 35 Urine Color (Yellow) Yellow Urine Clarity (Clear) Clear Urine pH (5-8) 6.0 Ur Specific [place] (1.005-1.025) 1.020 Urine Protein (Neg-Trace) mg/dL Negative Urine Ketones (Negative) mg/dL Negative Urine Blood (Negative) Negative Urine Nitrite (Negative) Negative Urine Bilirubin (Negative) Negative Urine Urobilinogen (Up to 0.2) mg/dL 1.0 H Ur Leukocyte Esterase (Negative) Trace H Urine RBC (0-2) HPF Negative Urine WBC (0-5) HPF 3-5 Ur Epithelial Cells (Negative) HPF Few Urine Crystals (Negative) HPF Negative Urine Bacteria (Negative) HPF Negative Urine Casts (Negative) LPF Negative Urine Mucus (Negative) Negative Ur Culture Indicated? No Urine Glucose (Negative) mg/dL Negative Quality:SDOH Health Related Social Needs: No Data to Display PFSH All Active Problems (Updated 05/02/24 @ 19:15 by ALEX Velazco) Abdominal pain of unknown cause (Acute) Skin lesion (Acute) ELGIN (obstructive sleep apnea) (Chronic) Diabetes mellitus (Chronic) Hypokalemia (Acute) Chronic headache (Acute) Orthostatic hypotension (Acute) Visual changes (Acute) Episodic lightheadedness (Acute) Increasing shortness of breath (Acute) Pacemaker (Chronic) [employer] placed at [facility] by Dr. Nicholson 07/31/21. RH Depression (Chronic) a. well controlled on SSRI PUD (peptic ulcer disease) (Chronic) Overweight (Chronic) Fibrocystic breast (Chronic) H/O surgical procedure (Chronic) a. Bilateral shoulder surgeries b. Right medial meniscus repair c. Rahman's cyst surgery d. Cataract surgery x 2 e. S/p Cholecystectomy f. S/p hysterectomy for benign reasons g. s/p breast biopsy h. 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 Follow-up in approximately 2 weeks for use of dural Jac as a [place] supplement prior to her trip to [facility] [place]. Polyp of colon (Chronic) Hiatal hernia (Acute) Fracture, pelvis closed (Chronic) Left lumbar radiculopathy (Acute) COVID-19 (Acute) Onset~03/2021, Onset 05/26/22 Urinary tract infection (Acute) Liver cyst (Acute) Medical History History of pacemaker Interstitial lung disease a. due to h/o psittacosis approximately 14-15 years ago Headache Peptic ulcer Unilateral inguinal hernia Acute bacterial bronchitis Arthritis of left knee s/p total knee Asthma GERD (gastroesophageal reflux disease) Hypercholesterolemia Gastroparesis Osteoarthritis Insomnia H/O: pneumonia Surgical History History of tonsillectomy and adenoidectomy Status post right knee replacement History of cataract removal with insertion of prosthetic lens Status post arthroscopy of shoulder Status post breast biopsy Status post cholecystectomy Status post laparoscopic hysterectomy Hysterectomy, Laproscopic 1 ovary remains FX ARM (02/15/14) PLATE AND SCREWS Cholecystectomy Extraction of cataract 06/11/13; RIGHT 06/26/13; LEFT Biopsy of breast (~2005) LEFT Arthroscopy, Shoulder LEFT Family History Mother Diabetes Essential hypertension Depression Heart disease Hyperlipidemia Father , WW II at age 24. No problems noted. Brother Diabetes Essential hypertension Hyperlipidemia Neoplasm MELANOMA Grandfather Diabetes Essential hypertension Grandfather Essential hypertension Heart disease Hyperlipidemia Grandmother Essential hypertension Neoplasm Stroke Grandmother Diabetes Blood disease Neoplasm COLON FAMILY HISTORY Myocardial infarction Son Substance abuse Depression Hyperlipidemia Daughter Diabetes Depression Hyperlipidemia Asthma Other Urinary tract infection Social History Smoking/Tobacco Use Status: Never Smoking risk assessment performed?: Yes Alcohol Intake: current Alcohol Intake frequency: a few times a month Alcohol type: hard liquor Drug use: Never Substance use type: does not use Caregiver/Support person: No Household members: none Housing: other Do you need help understanding health information?: Never Pets and animals: No Current gender identity: female What is your relationship status?: How often do you talk on the phone with friends or family?: three or more times per week How often do you get together with friends or relatives?: decline to answer How often do you attend latter day or yarsanism services?: decline to answer Do you belong to any clubs or organized social groups?: yes Panel score (0-1 are the most socially isolated patients): 2 What type of physical activity do you participate in: walking Janet/Advent: None Special janet needs: No Seatbelt use: always Drive intox or ride w/intox ambulette driver: No Do you feel safe at home: Yes Do you feel safe in your relationship?: Yes Additional Social history: 6years ago. Lives by self.
[2024-05-02 15:52] LABS: Bacteria Negative HPF (Negative); C & S Indicated? No; Casts Negative LPF (Negative); Crystals Negative HPF (Negative); Epithelial Cells Few HPF (Negative); Mucus Negative (Negative); RBC Negative HPF (0-2)
--- NOTE | 2024-05-02 16:00 | DI.CT_ITS ---
Exam(s) CT ABDOMEN PELVIS W EXAM: CT ABDOMEN PELVIS W CLINICAL HISTORY: LLQ tender, inguinal hernia? TECHNIQUE: Imaging Protocol: Axial computed tomography images with coronal and sagittal reformatted images were created and reviewed. CONTRAST MATERIAL: Intravenous: Omnipaque 350 Contrast volume:75 mL Oral: No COMPARISON: CT CT RENAL COLIC WO from 03/15/2022 FINDINGS: ABDOMEN: Lung Bases: Calcified granuloma seen in the right lower lobe. No focal consolidating infiltrates are seen in the lung bases. Liver: There is decreased attenuation of the liver suggesting fatty infiltration. There is a simple cyst in the left lobe of the liver. No suspicious hepatic masses are present. Portal, Superior Mesenteric, and Splenic Veins: Unremarkable. Gallbladder and Biliary Tract: Status post cholecystectomy. No significant biliary ductal dilatation is present. Pancreas: Normal density, no abnormal calcifications or inflammatory process. Spleen: Normal. Adrenals: No masses seen. Kidneys: Normal size, contour and axis. No radiodense stones or obstructive uropathy. No masses seen. Abdominal Aorta: Abdominal portion non-dilated. Atherosclerotic calcification is present. Bowel: There is diverticulosis seen in the colon, but no evidence of acute diverticulitis. There is a diverticulum in the duodenum adjacent to the head of the pancreas. There is no evidence of bowel w all thickening or obstruction. There is no pneumatosis. There is no evidence of appendicitis. Peritoneal Cavity: No ascites, collection or mesenteric inflammatory response. No free air. Lymph Nodes: Within normal limits. Bones: Within normal limits for the patient's age. There are old healed right inferior and superior pubic rami fractures. 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 There is an unchanged depressi on of the superior endplate of L3. Soft Tissues: Unremarkable. PELVIS: Bladder: Symmetric distention, no gross wall thickening. Reproductive Organs: Status post hysterectomy. Lymph Nodes: Within normal limits. Bones: Within normal limits for the patient's age. IMPRESSION: 1. No acute abdominal or pelvic process. 2. No evidence of a left inguinal hernia, mass or adenopathy. 3. Colonic diverticulosis without evidence of acute diverticulitis. RADIATION DOSE DELIVERED: 506.68mGy.cm Total DLP DATA REPOSITORY: All CT scans at this facility are submitted to the National Radiology Data Registry (NRDR) Dose Index Registry (DIR) with the [employer] (ACR). RADIATION OPTIMIZATION: All CT scans at this facility use at least one of these dose optimization te chniques: automated exposure control; mA and/or kV adjustment per patient size (includes targeted exa ms where dose is matched to clinical indication); or iterative reconstruction.
[2024-05-02 16:57] LABS: Lactate 1.4 mmol/L (<or=2.0)
[2024-05-02 16:58] LABS: Abs Immature Grans 0.04 10^3/uL (0.0-0.06); Absolute Basophil Count 0.06 10^3/uL (0.0-0.2); Absolute Eosinophil Count 0.14 10^3/uL (0.0-0.7); Absolute Lymphocyte Count 1.93 10^3/uL (1.2-3.4); Absolute Monocyte Count 0.73 10^3/uL (0.1-0.8); Absolute Neutrophil Count 3.35 10^3/uL (1.2-6.7); Eosinophils % 2.2 %; HCT 43.5 % (36.0-46.0); HGB 14.8 g/dL (11.2-15.7); Immature Grans % 0.6 %; Lymphocytes % 30.9 %; MCH 30.4 pg (27.0-33.0); MCV 89 fL (80-95); MPV 10.2 fL (8.0-11.0); Monocytes % 11.7 %; Neutrophils % 53.6 %; Platelet Count 215 10^3/uL (130-400); RBC 4.87 10^6/uL (3.93-5.22); RDW 12.1 % (11.7-14.6); RDW-SD 39.4 fL; WBC 6.25 10^3/uL (4.4-10.8)
[2024-05-02 17:26] LABS: ALT 39 U/L (14-59); AST 34 U/L (15-37); Alkaline Phosphatase 63 U/L (46-116); Anion Gap 9.2 mmol/L (3-11); BUN 21 mg/dL (7-18); Bilirubin, Total 1.54 mg/dL (0.2-1.0); CO2 26.8 mmol/L (21.0-32.0); CREATININE 0.9 mg/dL (0.55-1.02); Calcium 9.4 mg/dL (8.5-10.1); Chloride 108 mmol/L (98-107); Estimated GFR 63.83 (mL/min/1.73m2); Glucose 72 mg/dL (74-106); Lipase 35 U/L (<78); Potassium 4.5 mmol/L (3.5-5.1); Sodium 144 mmol/L (136-145); Total Protein 7.2 g/dL (6.4-8.2)
[2024-05-02] MEDS: Acetaminophen 325 MG TAB 650 MG PO (17:36)
[2024-05-02] MEDS: Normal Saline - Diluent 50 ML VIAL IJ (18:02)
[2024-05-02] MEDS: Omnipaque 350 MG/ML 100 ML BTL IJ (18:03)
== END 2024-05-02 19:34 | disposition home or self-care (01) ==
PROVIDERS: Emergency Medicine Emergency Medical Services; Emergency Provider Physician Assistant; PCP Nurse Practitioner Family
DX: M54.50 Low back pain, unspecified (principal); R00.1 Bradycardia, unspecified; E11.9 Type 2 diabetes mellitus without complications; E78.00 Pure hypercholesterolemia, unspecified; I10 Essential (primary) hypertension; Z95.0 Presence of cardiac pacemaker; Z79.84 Long term (current) use of oral hypoglycemic drugs
CPT/HCPCS: 80053; 83690; 93005; 99285; 74177; 81003; 81015; 83605; 85025; 93010; 99284; J3490

== ENCOUNTER → 2024-06-19 14:27 | Outpatient (BNVA) | payer MEDICARE, SELFPAY | PROVIDERS: PCP Nurse Practitioner Family; Referring Provider Nurse Practitioner Family; Visit Provider Physician Assistant Surgical | DX: J45.41 Moderate persistent asthma with (acute) exacerbation (principal); G47.33 Obstructive sleep apnea (adult) (pediatric) | CPT/HCPCS: 99214 ==

== ENCOUNTER → 2024-10-04 13:08 | Outpatient (BNVA) | payer MEDICARE, SELFPAY | PROVIDERS: PCP Nurse Practitioner Family; Referring Provider Nurse Practitioner Family; Visit Provider Physician Assistant Surgical | DX: J45.41 Moderate persistent asthma with (acute) exacerbation (principal); G47.33 Obstructive sleep apnea (adult) (pediatric) | CPT/HCPCS: 99214 ==

== ENCOUNTER 2024-10-31 17:42 | Outpatient (REF) | payer MEDICARE, SELFPAY | END 2024-10-31 17:43 | disposition home or self-care (01) | LOC: LBN 17:42 | PROVIDERS: PCP Nurse Practitioner Family; Visit Provider Nurse Practitioner Family | DX: N39.0 Urinary tract infection, site not specified (principal) | CPT/HCPCS: 87086 ==

== ENCOUNTER 2024-11-13 15:28 | Emergency (ER) | payer MEDICARE, SELFPAY ==
--- NOTE | 2024-11-13 15:45 | RT.EKG_ITS ---
APPROVED REPORT Exam: Resting ECG Reason for Exam: dizzy, cardia hx Patient Location: E HR:77 bpm ECG Measurements Heart Rate 77 AXIS WI 250 P 27 QRSd 140 QRS -62 QT 414 T 100 QTc 469 Conclusion Ventricular-paced rhythm
[2024-11-13 15:51] VITALS: BP 101/65; PULSE 88; RESP 20; TEMP 36.4; O2SAT 97
--- NOTE | 2024-11-13 16:04 | ED.GENADUL_ITS ---
Discharge Plan Disposition Patient Disposition: Home Condition: Good Discharge Details Clinical Impression: Lightheadedness, Dehydration Primary Care Provider: Kodi Montez ED Provider: Jason Heath Home Meds and New Rx's Prescriptions: Continued albuterol sulfate [ProAir HFA] 90 mcg/actuation HFA aerosol inhaler 2 puff Inhalation QID PRN (Reason: asthma) Qty: 3 0RF Rx Instructions: J45.41 (DME) blood-glucose meter [FreeStyle Austin Lite] Kit See Rx Instructions .Route Qty: 1 1RF Rx Instructions: Test twice daily every other day, AM and Fasting before evening meal fluticasone propion-salmeterol [Wixela Inhub] 250-50 mcg/dose blister with device 1 inh inhalation BID cholecalciferol (vitamin D3) 50 mcg (2,000 unit) tablet 100 mcg PO DAILY amitriptyline 10 mg tablet 10 mg PO QHS Qty: 60 0RF Dupixent Pen 300 mg/2 mL pen injector 300 mg subcut Q2W Qty: 4 11RF gabapentin 300 mg capsule 300 mg PO BID PRN esomeprazole magnesium [Nexium] 40 mg capsule,delayed release(DR/EC) 20 mg PO BID Qty: 180 4RF lisinopril 20 mg tablet 20 mg PO DAILY Patient Comments: TAKE 1 TABLET BY MOUTH DAILY FOR HIGH BLOOD PRESSURE albuterol sulfate 1.25 mg/3 mL solution for nebulization 1.25 mg inhalation QID PRN (Reason: shortness of breath or wheezing) Qty: 540 7RF (DME) FreeStyle Lite Strips Strip See Rx Instructions .Route Qty: 100 3RF Rx Instructions: Test 2x daily every other day, AM and before evening meal (DME) lancets [FreeStyle Lancets] 28 gauge misc See Rx Instructions .Route Qty: 100 3RF Rx Instructions: Test twice daily every other day. simvastatin [Zocor] 40 mg tablet 40 mg PO DAILY Qty: 90 3RF montelukast [Singulair] 10 mg tablet 10 mg PO DAILY Qty: 90 3RF glipizide 10 mg tablet 10 mg PO DAILY Qty: 90 3RF fluoxetine [Prozac] 20 mg capsule 20 mg PO DAILY Qty: 90 4RF fluticasone propionate [Flonase] 16 GM spray,suspension 2 spry NS DAILY PRN Discharge Instructions Instructions: Dehydration, Adult ED Additional Instructions: You were seen in the ED for lightheadedness and weakness especially upon standing. Your EKG, exam, laboratory studies and pace maker interrogation are reassuring. You did have evidence of some mild dehydration based on labs and received fluids while here. Continue to push fluids at home. Follow-up with primary care for recheck over the next few days. Return to ED for any loss of consciousness, severe headache, neurologic change, chest pain, shortness of breath, other concerns. 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 Date/Time Provider Initiated Documentation: 11/13/24 15:44 . Limitations to Documentation: no limitations . Information obtained by: patient, RN notes reviewed and old records reviewed . HPI Narrative: Patient presents to ED from [facility] for evaluation of lightheadedness, weakness. Patient describes a lightheaded and weak feeling not vertigo which she has had previously. She states what she is feeling now does not feel anything like her vertigo. There is no spinning sensation, abnormal gait, difficulty with position change. She just overall feels lightheaded, weak, fatigued. Does report a decreased appetite and does not really feel like eat ing. Describes some abdominal discomfort but cannot really describe pain. Has had some diarrhea but no vomiting. No fever that she is aware of. No cough or URI type symptoms but does feel short of breath. She has not had any type of chest pain or pressure. She does think she has been drinking enough despite not having an appetite. Continues to make urine and denies urinary symptoms. Denies any syncope or near syncope. Does have a pacemaker which was placed a few years ago. Supposed to be seeing cardiology in the near future. Related Data Home Medications ?Medication ?Instructions ?Recorded ?Confirmed fluticasone propionate 50 2 spry NS DAILY PRN 06/07/13 11/13/24 mcg/actuation nasal spray,suspension (Flonase) esomeprazole magnesium 40 mg 20 mg (1/2 x 40 mg) PO BI D #180 07/31/19 11/13/24 capsule,delayed release (Nexium) tab-caps albuterol sulfate 90 mcg/actuation 2 puff inhalation Q ID PRN asthma 12/16/21 11/13/24 aerosol inhaler (ProAir HFA) #3 ea albuterol sulfate 1.25 mg/3 mL 1.25 mg (3 mL) inhalati on QID PRN 09/06/22 11/13/24 solution for nebulization shortness of breath or wheez ing #540 mL blood-glucose meter (FreeStyle #1 ea 10/08/22 11/13/24 Austin Lite kit) fluticasone 250 mcg-salmeterol 50 1 inh inhalation BID 04/15/23 11/13/24 mcg/dose blistr powdr for inhalation (Wixela Inhub) blood sugar diagnostic (FreeStyle #100 ea 12/19/2311/29 Lite Strips) lancets 28 gauge (FreeStyle #100 ea 12/19/23 11/13/24 Lancets) dupilumab 300 mg/2 mL subcutaneous 300 mg (2 mL) subcu t Q2W #4 mL 12/22/23 11/13/24 pen injector (Adduplex) lisinopril 20 mg tablet 20 mg PO DAILY 03/29/2411/29 amitriptyline 10 mg tablet 10 mg PO QHS #60 tabs 05/1611/13/24 cholecalciferol (vitamin D3) 50 100 mcg PO DAILY 06/1911/13/24 mcg (2,000 unit) tablet gabapentin 300 mg capsule 300 mg PO BID PRN 06/19/24 0 11/13/24 montelukast 10 mg tablet 10 mg PO DAILY #90 tabs 09/0511/13/24 (Singulair) simvastatin 40 mg tablet (Zocor) 40 mg PO DAILY #90 ta b-caps 09/26/24 11/13/24 fluoxetine 20 mg capsule (Prozac) 20 mg PO DAILY #90 c aps 11/12/24 11/13/24 glipizide 10 mg tablet 10 mg PO DAILY #90 tabs 10/2911/13/24 Previous Rx's ?Medication ?Instructions ?Recorded esomeprazole magnesium 40 mg 20 mg (1/2 x 40 mg) PO BI D #180 07/31/19 capsule,delayed release (Nexium) tab-caps albuterol sulfate 90 mcg/actuation 2 puff inhalation Q ID PRN asthma 12/16/21 aerosol inhaler (ProAir HFA) #3 ea albuterol sulfate 1.25 mg/3 mL 1.25 mg (3 mL) inhalati on QID PRN 09/06/22 solution for nebulization shortness of breath or wheez ing #540 mL blood-glucose meter (FreeStyle #1 ea 10/08/22 Austin Lite kit) blood sugar diagnostic (FreeStyle #100 ea 12/19/23 Lite Strips) lancets 28 gauge (FreeStyle #100 ea 12/19/23 Lancets) dupilumab 300 mg/2 mL subcutaneous 300 mg (2 mL) subcu t Q2W #4 mL 12/22/23 pen injector (Dupixent) amitriptyline 10 mg tablet 10 mg PO QHS #60 tabs 05/16 montelukast 10 mg tablet 10 mg PO DAILY #90 tabs 09/05 05/29 (Singulair) simvastatin 40 mg tablet (Zocor) 40 mg PO DAILY #90 ta b-caps 09/26/24 fluoxetine 20 mg capsule (Prozac) 20 mg PO DAILY #90 c aps 11/12/24 glipizide 10 mg tablet 10 mg PO DAILY #90 tabs 10/29 Allergies Allergy/AdvReac Type Severity Reaction Status Date / Time adhesive Allergy Severe SKIN RASH Verified 11/13/24 15:50 Sulfa (Sulfonamide Allergy Intermediate ITCHING Verified 11/13/24 15:50 Antibiotics) losartan Allergy Unknown SWELLING, Verified 11/13/24 15:50 ITCHING hydrocodone AdvReac Itching Verified 11/13/24 15:50 with high doses General Stated Complaint: Dizzy/Sync CLAUDIA: 3 Exam Narrative Exam Narrative: Const: WDWN female in NAD. VS per triage. HEENT: NC/AT. Normal facial exam. Neck: Supple. Trachea midline. Lungs: Normal respiratory effort. Lungs are clear. Cor: RRR without murmur. Good radial pulses. GI: Soft/ND/NT. Neuro: A+O x 3. Normal speech, mentation, gait. Cranial nerves II - XII grossly intact. No gross motor or sensory deficit. Ext: No C/C/E. Course Vital Signs Vital signs: Vital Signs Temperature 97.5 F L 11/13/24 15:51 Pulse 88 11/13/24 15:51 Respiratory Rate 20 11/13/24 15:51 Blood Pressure 101/65 11/13/24 15:51 Pulse Oximetry 97 11/13/24 15:51 Temperature 97.5 F L 11/13/24 15:51 Temperature Source Oral 11/13/24 15:51 Pulse 88 11/13/24 15:51 Respiratory Rate 20 11/13/24 15:51 Blood Pressure 101/65 11/13/24 15:51 Blood Pressure Position Sitting 11/13/24 15:51 Pulse Oximetry 97 11/13/24 15:51 Oxygen Delivery Method Room Air 11/13/24 15:51 Oxygen Flow Rate 0 11/13/24 15:51 Pain Level 0 11/13/24 15:51 Medical Decision Making Patient presenting to ED from [facility] for evaluation of lightheadedness and weakness. [facility] note reviewed and I did speak directly to the provider prior to patient arriving. She has a history of vertigo but reports that this is completely different. She has had decreased appetite and abdominal discomfort but not necessarily pain and no vomiting. She has had diarrhea. No fever that she is aware of. No syncope or chest pain. A little more short of breath she thinks in usual but mostly just weakness, lightheadedness, fatigue. She has not had her pacemaker checked in over a year. She is supposed to be having a follow-up with cardiology in the near future. Initial vital signs on arrival are fine. EKG on arrival is paced. Will plan IV, fluids, check labs, interrogate pacer, chest x-ray and urine. Rapid flu and Covid done at [facility] negative. VBG here normal as is lactate. CBC with normal WBC and Hgb. CMP with mild HIRAM but normal lytes and LFTs. Troponin normal. CXR negative per my read. Urine negative. Pace maker interrogation within normal parameters. Orthostatics done after fluids negative, with patient being hypertensive with all positions and no tachycardia. Patient does report feeling better, though not normal. Able to ambulate to bathroom without difficulty and felt more re-assured with that. Will plan discharge to follow up with PCP, push fluids, return precautions provided. Medical Records Medical records reviewed: Yes I reviewed the patient's medical records. Medical records narrative: see MDM Imaging Data Radiologic Study: Attestation: I personally reviewed and interpreted this imaging study as follows: Imaging: X-Ray My impression: see [facility] Lab Data Lab results reviewed: Yes I reviewed the patient's lab results. Lab results narrative: see [facility] ECG Data Attestation: I personally reviewed and interpreted this ECG (s) as follows: Prior ECG tracings: available for review Interpretation: see EKG/MDM PFSH All Active Problems Dehydration (Acute) Lightheadedness (Acute) Skin lesion (Acute) ELGIN (obstructive sleep apnea) (Chronic) Diabetes mellitus (Chronic) Hypokalemia (Acute) Chronic headache (Acute) Orthostatic hypotension (Acute) Visual changes (Acute) Episodic lightheadedness (Acute) Increasing shortness of breath (Acute) Pacemaker (Chronic) [employer] placed at [facility] by Dr. Nicholson 07/31/21. RH Depression (Chronic) a. well controlled on SSRI PUD (peptic ulcer disease) (Chronic) Overweight (Chronic) Fibrocystic breast (Chronic) H/O surgical procedure (Chronic) a. Bilateral shoulder surgeries b. Right medial meniscus repair c. Rahman's cyst surgery d. Cataract surgery x 2 e. S/p Cholecystectomy f. S/p hysterectomy for benign reasons g. s/p breast biopsy h. 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 Follow-up in approximately 2 weeks for use of dural Jac as a Visco supplement prior to her trip to [facility] [place]. Polyp of colon (Chronic) Hiatal hernia (Acute) Fracture, pelvis closed (Chronic) Left lumbar radiculopathy (Acute) COVID-19 (Acute) Onset~03/2021, Onset 05/26/22 Urinary tract infection (Acute) Liver cyst (Acute) Medical History History of pacemaker Interstitial lung disease a. due to h/o psittacosis approximately 14-15 years ago Headache Peptic ulcer Unilateral inguinal hernia Acute bacterial bronchitis Arthritis of left knee s/p total knee Asthma GERD (gastroesophageal reflux disease) Hypercholesterolemia Gastroparesis Osteoarthritis Insomnia H/O: pneumonia Surgical History History of tonsillectomy and adenoidectomy Status post right knee replacement History of cataract removal with insertion of prosthetic lens Status post arthroscopy of shoulder Status post breast biopsy Status post cholecystectomy Status post laparoscopic hysterectomy Hysterectomy, Laproscopic 1 ovary remains FX ARM (02/15/14) PLATE AND SCREWS Cholecystectomy Extraction of cataract 06/11/13; RIGHT 06/26/13; LEFT Biopsy of breast (~2005) LEFT Arthroscopy, Shoulder LEFT Family History Mother Diabetes Essential hypertension Depression Heart disease Hyperlipidemia Father , WW II at age 24. No problems noted. Brother Diabetes Essential hypertension Hyperlipidemia Neoplasm MELANOMA Grandfather Diabetes Essential hypertension Grandfather Essential hypertension Heart disease Hyperlipidemia Grandmother Essential hypertension Neoplasm Stroke Grandmother Diabetes Blood disease Neoplasm COLON FAMILY HISTORY Myocardial infarction Son Substance abuse Depression Hyperlipidemia Daughter Diabetes Depression Hyperlipidemia Asthma Other Urinary tract infection Social History Smoking/Tobacco Use Status: Never Second Hand Exposure: Yes Smoking risk assessment performed?: Yes Alcohol Intake: current Alcohol Intake frequency: a few times a month Alcohol type: hard liquor Drug use: Never Substance use type: does not use Counseling given: No Caregiver/Support person: No Household members: none Housing: other Do you need help understanding health information?: Never Pets and animals: No Current gender identity: female What is your relationship status?: How often do you talk on the phone with friends or family?: three or more times per week How often do you get together with friends or relatives?: decline to answer How often do you attend christian or baptist services?: decline to answer Do you belong to any clubs or organized social groups?: yes Panel score (0-1 are the most socially isolated patients): 2 What type of physical activity do you participate in: walking Janet/Religious: None Special janet needs: No Seatbelt use: always Drive intox or ride w/intox 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 Lives by self.
--- NOTE | 2024-11-13 16:15 | DI.RAD_ITS ---
Exam(s) XR CHEST 2V PA LATERAL EXAM: XR CHEST 2V PA LATERAL CLINICAL HISTORY: weakness TECHNIQUE: 2D digital imaging was performed. Two views. COMPARISON: CR,XR XR CHEST 2V PA LATERAL from 09/16/2022 FINDINGS: HEART: Normal size. Pacemaker. Aorta: Not dilated. PULMONARY VASCULATURE: Normal. MEDIASTINUM: Unremarkable. LUNGS: Mild chronic fibrotic changes and minimal linear scarring, otherwise clear. PLEURAL SPACE: No pleural effusion or pneumothorax. BONE:Stable mild compression fractures. Hardware in the proximal humeri. SOFT TISSUES: Unremarkable. IMPRESSION: No acute abnormality. DATA REPOSITORY: RADIATION DOSE DELIVERED:
[2024-11-13 17:02] LABS: BE (Venous) 2 mmol/L (-2-3); HCO3 (Venous) 28 mmol/L (23-28); O2 Sat (Venous) 30 %; TCO2 (Venous) 26 mmol/L (24-29); pCO2 (Venous) 51 mmHg (41-51); pO2 (Venous) 21 mmHg
[2024-11-13 17:06] LABS: Abs Immature Grans 0.11 10^3/uL (0.0-0.06); HCT 42.6 % (36.0-46.0); HGB 14.2 g/dL (11.2-15.7); Immature Grans % 1.3 %; MCH 30.5 pg (27.0-33.0); MCHC 33.3 % (32.0-36.0); MCV 91 fL (80-95); MPV 10.0 fL (8.0-11.0); Platelet Count 213 10^3/uL (130-400); RBC 4.66 10^6/uL (3.93-5.22); RDW 12.7 % (11.7-14.6); RDW-SD 42.4 fL; WBC 8.75 10^3/uL (4.4-10.8)
[2024-11-13 17:25] LABS: ALT 34 U/L (14-59); AST 22 U/L (15-37); Albumin 4.2 g/dL (3.4-5.0); Alkaline Phosphatase 57 U/L (46-116); Anion Gap 6.2 mmol/L (3-11); BUN 23 mg/dL (7-18); Bilirubin, Total 1.2 mg/dL (0.2-1.0); CO2 30.8 mmol/L (21.0-32.0); Calcium 9.3 mg/dL (8.5-10.1); Chloride 104 mmol/L (98-107); Estimated GFR 44.91 (mL/min/1.73m2); Glucose 77 mg/dL (74-106); Lipase 51 U/L (<78); Magnesium 2.2 mg/dL (1.8-2.4); Potassium 4.1 mmol/L (3.5-5.1); Sodium 141 mmol/L (136-145); Total Protein 7.7 g/dL (6.4-8.2); Troponin I 10 ng/L (<or=51)
[2024-11-13] MEDS: Normal Saline 1,000 ML 1000 ML IV (17:37)
[2024-11-13 19:39] LABS: Glucose Negative (Negative)
[2024-11-13 19:57] VITALS: BP 188/85; BP 202/83; BP 208/112; PULSE 74; PULSE 76; PULSE 80
[2024-11-13 21:25] VITALS: BP 140/67; PULSE 71; RESP 18; O2SAT 97
== END 2024-11-13 21:40 | disposition home or self-care (01) ==
PROVIDERS: Emergency Provider Emergency Medicine; PCP Nurse Practitioner Family
DX: R42 Dizziness and giddiness (principal); E86.0 Dehydration
CPT/HCPCS: 36415; 80053; 82805; 83690; 93005; 96360; 99285; 71046; 81003; 83605; 83735; 84484; 85025; 93010; 99284

== ENCOUNTER → 2025-01-03 13:53 | Outpatient (BNVA) | payer MEDICARE, SELFPAY | PROVIDERS: PCP Nurse Practitioner Family; Referring Provider Nurse Practitioner Family; Visit Provider Physician Assistant Surgical | DX: J45.41 Moderate persistent asthma with (acute) exacerbation (principal); J84.9 Interstitial pulmonary disease, unspecified | CPT/HCPCS: 99214 ==

== ENCOUNTER → 2025-01-16 01:18 | Outpatient (CLI) | payer MEDICARE, SELFPAY ==
--- NOTE | 2025-01-16 08:00 | DI.CT_ITS ---
Exam(s) CT CHEST HIGH RESOLUTION EXAM: CT CHEST HIGH RESOLUTION CLINICAL HISTORY: chronic cough and exacerbations, INTERSTITIAL LUNG DISEASE,J84.9. TECHNIQUE: Multi planar reconstructions were performed. CONTRAST MATERIAL: None COMPARISON: CT CT CHEST WO from 08/24/2021 FINDINGS: CHEST: LUNGS: Mild-moderate elevation the right hemidiaphragm is again evident. However, there is now some decent atelectasis in the anterior basal segment of the right lower lobe medially adjacent to the elevated right hemidiaphragm. There are no confluent infiltrates and no pleural effusions evident. Some platelike atelectasis is again noted in the superior lingular segment of the left lung, unchanged. There are few tiny benign calcified granulomas in both lung jiang. No new significant lung nodules. There does not appear to be significant chronic-type interstitial disease in the lung jiang on the high-resolution images. MEDIASTINUM: There is no obvious hilar nor mediastinal adenopathy. No supraclavicular nor axillary adenopathy.Partially visualized thyroid reveals nodular extension off the inferior aspect of the left lobe extending into the anterior mediastinum anterior to the trachea. There is no tracheal deviation. CARDIAC: Heart size is normal. There is no pericardial effusion.Caliber of the thoracic aorta is within normal limits. Left-sided cardiac pacemaker wires noted. VISUALIZED UPPER ABDOMEN:No adrenal masses. Gallbladder surgically absent. Hepatic steatosis. There is again noted well-defined hypodensity in left hepatic lobe measuring 4.8 x 3.3 cm, unchanged X system with a benign cyst. Does not require further workup. There are no obvious focal findings in the right hepatic lobe on this non few study. There is no ascites nor splenomegaly. OSSEOUS: No significant osseous lesions.Slight loss of height of a few thoracic vertebrae is unchanged from CT scan of August 2021. Also unchanged multilevel superior endplate Schmorl's node configurations no new fractures evident. No osseous lesions evident.. IMPRESSION: 1. There is some mild atelectasis in the anterior basal segment of the right lower lobe immediately adjacent to the moderately elevated right hemidiaphragm. There is some unchanged platelike atelectasis in the superior lingular segment of the opposite-left lung. 2. No new confluent infiltrates nor pleural effusions and there are no significant pulmonary nodules. Also no evidence of obvious chronic interstitial lung disease. 3. Cardiac pacemaker wires are again noted. There is no evidence of pulmonary edema. Other findings as above. RADIATION DOSE DELIVERED: 362.23mGy.cm Total DLP DATA REPOSITORY: All CT scans at this facility are submitted to the National Radiology Data Registry (NRDR) Dose Index Registry (DIR) with the [employer] (ACR). RADIATION OPTIMIZATION: All CT scans at this facility use at least one of these dose optimization techniques: automated exposure control; mA and/or kV adjustment per patient size (includes targeted exams where dose is matched to clinical indication); or iterative reconstruction.
== END ==
LOC: DI 01:18
PROVIDERS: PCP Nurse Practitioner Family; Visit Provider Physician Assistant Surgical
DX: J84.9 Interstitial pulmonary disease, unspecified (principal)
CPT/HCPCS: 71250